=== PATIENT | female | born 1955 | race African-American/Black ===

== ENCOUNTER 2018-09-13 13:42 | Emergency (ER) | payer OTHER ==
--- NOTE | 2018-09-13 15:16 | RAD REPORT ---
EXAM DESCRIPTION: [facility] Pa And Lat (2 Views)09/13/2018 2:39 pm CLINICAL HISTORY: Cough COMPARISON: June 2017 FINDINGS: The lungs appear clear of acute infiltrate. The heart is normal size. Aorta is tortuous/e ctatic IMPRESSION: No acute abnormalities displayed
[2018-09-13] MEDS ORDERED: BENZONATATE 100 MG CAP PO ONE (15:20)
--- NOTE | 2018-09-13 15:27 | EDPHYS ---
Physician Documentation [facility] Name: Kate Brice Age: 62 yrs Sex: Female : 1955 Arrival Date: 09/13/2018 Time: 13:43 Bed 17 Private MD: Vincenzo Fermin R ED Physician Elijah Gross HPI: 09/13 14:05 This 62 yrs old Black Female presents to ER via Ambulatory with complaints of Flu cp Symptoms. 14:05 The patient or guardian reports cough, that is intermittent, with productive sputum. cp Onset: The symptoms/episode began/occurred 3 day(s) ago. Associated signs and symptoms: Pertinent positives: sore throat, Pertinent negatives: chest pain, diarrhea, fever, vomiting. Severity of symptoms: in the emergency department the symptoms are unchanged despite home interventions. Historical: - Allergies: 13:52 NKDA; la1 - PMHx: 13:52 Arthritis; Hypertension; la1 - Immunization history:: Adult Immunizations up to date. - Social history:: Smoking status: Patient/guardian denies using tobacco. - Ebola Screening: : No symptoms or risks identified at this time. ROS: 14:10 Constitutional: Negative for body aches, fever, poor PO intake. cp 14:10 Eyes: Negative for injury, pain, redness, and discharge. cp 14:10 ENT: Positive for sore throat, Negative for drainage from ear(s), ear pain, difficulty swallowing, difficulty handling secretions. 14:10 Cardiovascular: Negative for chest pain. 14:10 Respiratory: Positive for cough, "sounds productive", Negative for shortness of breath, wheezing. 14:10 Abdomen/GI: Negative for abdominal pain, vomiting, diarrhea, constipation. 14:10 Skin: Negative for rash. 14:10 Neuro: Negative for altered mental status, headache. 14:10 All other systems are negative. Exam: 14:18 Constitutional: The patient appears in no acute distress, alert, awake, non-toxic, well cp developed, well nourished, obese. 14:18 Head/Face: Normocephalic, atraumatic. cp 14:18 Eyes: Periorbital structures: appear normal, Conjunctiva: normal, no exudate, no injection, Lids and lashes: appear normal, bilaterally. 14:18 ENT: External ear(s): are unremarkable, Ear canal(s): are normal, clear, TM's: bulging, is not appreciated, bilaterally, dullness, bilaterally, erythema, is not appreciated, bilaterally, Nose: is normal, Mouth: Lips: moist, Oral mucosa: moist, Posterior pharynx: Airway: no evidence of obstruction, patent, Tonsils: no enlargement, no exudate, swelling, is not appreciated, erythema, that is mild, exudate, is not appreciated. 14:18 Neck: ROM/movement: is normal, is supple, without pain, no range of motions limitations, no meningismus, no nuchal rigidity, Lymph nodes: no appreciated lymphadenopathy. 14:18 Chest/axilla: Inspection: normal, Palpation: is normal, no crepitus, no tenderness. 14:18 Cardiovascular: Rate: normal, Rhythm: regular. 14:18 Respiratory: the patient does not display signs of respiratory distress, Respirations: normal, no use of accessory muscles, no retractions, no splinting, no tachypnea, labored breathing, is not present, Breath sounds: bronchial sounds, that are mild, are heard diffusely, decreased breath sounds, are not appreciated, stridor, is not appreciated, + upper airway congestion. wheezing: is not appreciated. 14:18 Abdomen/GI: Exam negative for discomfort, distension, guarding, Inspection: abdomen appears normal. 14:18 Skin: cellulitis, is not appreciated, no rash present. Vital Signs: 13:52 BP 142 / 92; Pulse 77; Resp 18; Temp 99.1(TE); Pulse Ox 96% on R/A; Weight 125.19 kg; la1 Height 5 ft. 9 in. (175.26 cm); 13:52 Body Mass Index 40.76 (125.19 kg, 175.26 cm) la1 MDM: 13:56 Patient medically screened. cp 14:20 Differential diagnosis: bronchitis, flu, URI, pneumonia, strep throat. cp 15:26 Data reviewed: vital signs, nurses notes, lab test result(s), radiologic studies, plain cp films. 15:26 Test interpretation: by ED physician or midlevel provider: plain radiologic studies. cp Counseling: I had a detailed discussion with the patient and/or guardian regarding: the historical points, exam findings, and any diagnostic results supporting the discharge/admit diagnosis, lab results, radiology results, to return to the emergency department if symptoms worsen or persist or if there are any questions or concerns that arise at home. Response to treatment: the patient's symptoms have mildly improved after treatment, and as a result, I will discharge patient. 09/13 13:54 Order name: Flu; Complete Time: 14:39 la1 09/13 14:39 Interpretation: Reviewed. 09/13 14:02 Order name: Strep; Complete Time: 14:39 09/13 14:39 Interpretation: Reviewed. 09/13 14:02 Order name: XRAY Chest Pa And Lat (2 Views); Complete Time: 15:17 09/13 15:17 Interpretation: Report reviewed. 09/13 14:40 Order name: Throat Culture EDME Administered Medications: 15:16 Drug: Tessalon Perle 200 mg Route: PO; em 16:02 Follow up: Response: No adverse reaction em 15:30 Drug: Albuterol 2.5 mg Route: Inhalation; em 16:02 Follow up: Response: No adverse reaction em 15:30 Drug: AtroVENT Aerosol 0.5 mg Route: Inhalation; em 16:03 Follow up: Response: No adverse reaction em Disposition: 09/13/18 15:27 Discharged to Home. Impression: Acute upper respiratory infection, unspecified. - Condition is Stable. - Discharge Instructions: Upper Respiratory Infection, Adult. - Prescriptions for Tessalon Perles 100 mg Oral Capsule - take 2 capsule by ORAL route every 8 hours As needed; 30 capsule. Albuterol Sulfate 90 mcg/actuation - inhale 1-2 puff by INHALATION route every 4-6 hours; 1 Inhaler. - Medication Reconciliation Form, Thank You Letter, Antibiotic Education, Prescription Opioid Use form. - Follow up: Private Physician; When: 2 - 3 days; Reason: Worsening of condition. - Problem is new. - Symptoms have improved. Addendum: 09/18/2018 05:29 Co-signature as Attending Physician, Elijah Gross MD. g s Signatures: Dispatcher [employer] EDME Ayaan Jones, PATTERN CARRIER PATTERN CARRIER em Reid Luo RN RN la1 Cecil Dawkins, PA PA Elijah Marx MD MD Corrections: (The following items were deleted from the chart) 09/13 16:06 15:27 09/13/2018 15:27 Discharged to Home. Impression: Acute upper respiratory em infection, unspecified. Condition is Stable. Forms are Medication Reconciliation Form, Thank You Letter, Antibiotic Education, Prescription Opioid Use. Follow up: Private Physician; When: 2 - 3 days; Reason: Worsening of condition. Problem is new. Symptoms have improved. cp
--- NOTE | 2018-09-13 15:27 | ER ---
Nurse's Notes [facility] Name: Kate Brice Age: 62 yrs Sex: Female : 1955 Arrival Date: 09/13/2018 Time: 13:43 Bed 17 Private MD: Vincenzo Fermin R Diagnosis: Acute upper respiratory infection, unspecified Presentation: 09/13 13:52 Presenting complaint: Patient states: I have been having some cold on my chest for the la1 last week and started with chills yesterday, denies vomiting. Transition of care: patient was not received from another setting of care. Onset of symptoms was September 13, 2018. Risk Assessment: Do you want to hurt yourself or someone else? Patient reports no desire to harm self or others. Initial Sepsis Screen: Does the patient meet any 2 criteria? No. Patient's initial sepsis screen is negative. Does the patient have a suspected source of infection? No. Patient's initial sepsis screen is negative. Care prior to arrival: None. 13:52 Method Of Arrival: Ambulatory la1 13:52 Acuity: RACQUEL 3 la1 Historical: - Allergies: 13:52 NKDA; la1 - PMHx: 13:52 Arthritis; Hypertension; la1 - Immunization history:: Adult Immunizations up to date. - Social history:: Smoking status: Patient/guardian denies using tobacco. - Ebola Screening: : No symptoms or risks identified at this time. Screenin:03 Abuse screen: Denies threats or abuse. Nutritional screening: No deficits noted. em Tuberculosis screening: No symptoms or risk factors identified. Fall Risk None identified. Assessment: 14:04 General: Appears in no apparent distress. comfortable, Behavior is calm, cooperative, em Reports feeling ill for > 3 days. Pain: Complains of pain in chest and throat Pain currently is 7 out of 10 on a pain scale. Pain began 2 weeks ago. Neuro: Level of Consciousness is awake, alert, obeys commands, Oriented to person, place, time, situation. Cardiovascular: Heart tones S1 S2 present Capillary refill < 3 seconds Patient's skin is warm and dry. Respiratory: Reports cough that is non-productive, pain with cough Airway is patent Respiratory effort is even, unlabored, Respiratory pattern is regular, symmetrical, Breath sounds are clear bilaterally. GI: Abdomen is obese, Patient currently denies nausea, vomiting. : No signs and/or symptoms were reported regarding the genitourinary system. EENT: Nares are clear Oral mucosa is moist. Throat is clear is pink. Derm: Skin is intact, is healthy with good turgor, Skin is pink, warm \T\ dry. Musculoskeletal: Range of motion: intact in all extremities. 14:15 General: The previous assessment is accurate, call light remains within reach. . ss 15:19 Reassessment: Patient appears in no apparent distress at this time. Patient and/or em family updated on plan of care and expected duration. Pain level reassessed. Patient is alert, oriented x 3, equal unlabored respirations, skin warm/dry/pink. Vital Signs: 13:52 BP 142 / 92; Pulse 77; Resp 18; Temp 99.1(TE); Pulse Ox 96% on R/A; Weight 125.19 kg; la1 Height 5 ft. 9 in. (175.26 cm); 13:52 Body Mass Index 40.76 (125.19 kg, 175.26 cm) la1 ED Course: 13:43 Patient arrived in ED. mr 13:43 Vincenzo Fermin MD is Private Physician. mr 13:52 Triage completed. la1 13:53 Arm band placed on left wrist. la1 13:55 Cecil Dawkins PA is PHCP. cp 13:55 Elijah Gross MD is Attending Physician. cp 14:02 Ayaan Jones LVN is Primary Nurse. em 14:03 Patient has correct armband on for positive identification. Bed in low position. Call em light in reach. Pulse ox on. NIBP on. 14:17 Strep swab sent to lab. dh3 14:35 X-ray completed. Patient tolerated procedure well. tm4 14:37 XRAY Chest Pa And Lat (2 Views) In Process Unspecified. EDMS 15:39 No provider procedures requiring assistance completed. Patient did not have IV access em during this emergency room visit. Administered Medications: 15:16 Drug: Tessalon Perle 200 mg Route: PO; em 16:02 Follow up: Response: No adverse reaction em 15:30 Drug: Albuterol 2.5 mg Route: Inhalation; em 16:02 Follow up: Response: No adverse reaction em 15:30 Drug: AtroVENT Aerosol 0.5 mg Route: Inhalation; em 16:03 Follow up: Response: No adverse reaction em Outcome: 15:27 Discharge ordered by . cp 15:39 Discharged to home ambulatory. em 15:39 Condition: good 15:39 Discharge instructions given to patient, Instructed on discharge instructions, follow up and referral plans. medication usage, Demonstrated understanding of instructions, follow-up care, medications, Prescriptions given X 2. 16:06 Patient left the ED. em Signatures: Dispatcher [employer] HUI Erika March, Rakel tm4 Ayaan Jones, METAL DRAWER METAL DRAWER em María Garcia RN RN ss Attema, Lee, RN RN la1 Cecil Dawkins PA PA cp Herrera, Deanna [facility]
[2018-09-13] MEDS ORDERED: IPRATROPIUM BROM 0.5MG/2.5ML ONE (15:37)
[2018-09-13] MEDS ORDERED: ALBUTEROL 2.5 MG/3 ML NEB SOL ONE (15:37)
[2018-09-13 16:12] VITALS: BP 142/92; TEMP 99.1; O2SAT 96
== END 2018-09-13 16:06 | disposition home or self-care (01) ==
LOC: ER 13:42
DX: J06.9 Acute upper respiratory infection, unspecified (principal); I10 Essential (primary) hypertension
CPT/HCPCS: 71046; 87070; 87081; 87804; 99284

== ENCOUNTER 2018-11-04 16:40 | Emergency (ER) | payer OTHER ==
--- NOTE | 2018-11-04 17:54 | EDPHYS ---
Physician Documentation [facility] Name: Kate Brice Age: 63 yrs Sex: Female : 1955 Arrival Date: 11/04/2018 Time: 16:42 Bed 25 Private MD: Vincenzo Fermin R ED Physician Jason Watt HPI: 11/04 17:49 This 63 yrs old Black Female presents to ER via Ambulatory with complaints of Headache. ps1 17:49 patient has a history of migraine 6 months ago that feels similar to today. She states ps1 that she has a frontal headache that is non-radiating. Described as throbbing. No aura. No nausea or vomiting that has been going on for 2 days. Headache was gradual in onset. No pain behind the eye. . Historical: - Allergies: 17:14 NKDA; aj1 - Home Meds: 17:14 aspirin 81 mg Oral TbEC 1 tab once daily [Active]; BP med [Active]; Fish Oil Oral aj1 [Active]; vit D3-folic acid-vit B2-B6-B12 Oral [Active]; - PMHx: 17:14 Arthritis; Hypertension; aj1 - Immunization history:: Flu vaccine is not up to date. - Social history:: Smoking status: Patient/guardian denies using tobacco. - Ebola Screening: : Patient denies travel to an Ebola-affected area in the 21 days before illness onset. ROS: 17:49 Constitutional: Negative for fever, chills, and weight loss, Eyes: Negative for injury, ps1 pain, redness, and discharge, ENT: Negative for injury, pain, and discharge, Cardiovascular: Negative for chest pain, palpitations, and edema, Respiratory: Negative for shortness of breath, cough, wheezing, and pleuritic chest pain, Abdomen/GI: Negative for abdominal pain, nausea, vomiting, diarrhea, and constipation, MS/Extremity: Negative for injury and deformity, Skin: Negative for injury, rash, and discoloration. 17:49 Neuro: Positive for headache. Exam: 17:49 Constitutional: This is a well developed, well nourished patient who is awake, alert, ps1 and in no acute distress. Head/Face: Normocephalic, atraumatic. Eyes: Pupils equal round and reactive to light, extra-ocular motions intact. Lids and lashes normal. Conjunctiva and sclera are non-icteric and not injected. Chest/axilla: Normal chest wall appearance and motion. Nontender with no deformity. No lesions are appreciated. Cardiovascular: Regular rate and rhythm. No gallops, murmurs, or rubs. Normal PMI, no JVD. No pulse deficits. Respiratory: Lungs have equal breath sounds bilaterally, clear to auscultation and percussion. No rales, rhonchi or wheezes noted. No increased work of breathing, no retractions or nasal flaring. Abdomen/GI: Soft, non-tender, with normal bowel sounds. No distension or tympany. No guarding or rebound. No evidence of tenderness throughout. MS/ Extremity: Pulses equal, no cyanosis. Neurovascular intact. Full, normal range of motion. Neuro: Awake and alert, GCS 15, oriented to person, place, time, and situation. Cranial nerves II-XII grossly intact. Sensory grossly intact. Psych: Awake, alert, with orientation to person, place and time. Behavior, mood, and affect are within normal limits. Vital Signs: 17:14 BP 110 / 73; Pulse 63; Resp 20; Temp 98.6; Pulse Ox 96% on R/A; Weight 107.95 kg (R); aj1 Height 5 ft. 9 in. (175.26 cm) (R); 18:31 BP 121 / 61; Pulse 81; Resp 19; Temp 98.5; Pulse Ox 100% on R/A; aj 17:14 Body Mass Index 35.15 (107.95 kg, 175.26 cm) aj1 MDM: 17:31 Patient medically screened. ps1 17:51 Data reviewed: vital signs, nurses notes, and as a result, I will discharge patient. ED ps1 course: patient states that she has a referral to neurology. Patient is not demonstrating symptoms and history concerning for SAH or malignancy, although this is a consideration. MRI would be the diagnostic modality of choice if her symptoms persist. Her BP is normal. Will try reglan for cessation of migraine. Pt to follow up with Neurology as previously referred. . Administered Medications: 18:03 Drug: TORadol 30 mg Route: IM; Site: left gluteus; aj 18:32 Follow up: Response: Marked relief of symptoms; Pain is decreased aj Disposition: 11/04/18 17:53 Discharged to Home. Impression: Migraine. - Condition is Stable. - Discharge Instructions: Migraine Headache. - Prescriptions for Reglan 10 mg Oral Tablet - take 1 tablet by ORAL route every 6 hours take 30 minutes before meals and at bedtime; 20 tablet. - Medication Reconciliation Form, Thank You Letter, Antibiotic Education, Prescription Opioid Use form. - Follow up: Private Physician; When: As needed; Reason: Further diagnostic work-up, Recheck today's complaints, Continuance of care, Re-evaluation by your physician. Follow up: Emergency Department; When: As needed; Reason: Fever > 102 F, Worsening of condition. - Problem is an acute exacerbation. - Symptoms have improved. Signatures: Melody Castellanos RN RN aj1 Valeria Talamantes RN RN aj Jason Watt MD MD ps1 Corrections: (The following items were deleted from the chart) 18:32 17:53 11/04/2018 17:53 Discharged to Home. Impression: Migraine. Condition is Stable. aj Forms are Medication Reconciliation Form, Thank You Letter, Antibiotic Education, Prescription Opioid Use. Follow up: Private Physician; When: As needed; Reason: Further diagnostic work-up, Recheck today's complaints, Continuance of care, Re-evaluation by your physician. Follow up: Emergency Department; When: As needed; Reason: Fever > 102 F, Worsening of condition. Problem is an acute exacerbation. Symptoms have improved. ps1
--- NOTE | 2018-11-04 17:54 | ER ---
Nurse's Notes [facility] Name: Kate Brice Age: 63 yrs Sex: Female : 1955 Arrival Date: 11/04/2018 Time: 16:42 Bed 25 Private MD: Vincenzo Fermin R Diagnosis: Migraine Presentation: 11/04 17:12 Presenting complaint: Patient states: "I got this headache about 6 months ago and I aj1 didn't do anything about it but I told myself if it ever came back I was going to come to there ER." Reports that her headache came back yesterday. Denies any other symptoms at this time. Transition of care: patient was not received from another setting of care. Onset of symptoms was November 03, 2018. Risk Assessment: Do you want to hurt yourself or someone else? Patient reports no desire to harm self or others. Initial Sepsis Screen: Does the patient meet any 2 criteria? No. Patient's initial sepsis screen is negative. Does the patient have a suspected source of infection? No. Patient's initial sepsis screen is negative. Care prior to arrival: None. 17:12 Method Of Arrival: Ambulatory [facility] 17:12 Acuity: RACQUEL 3 aj1 Triage Assessment: 17:14 Headache History: The patient has had previous headaches and this one is similar to aj1 previous episodes. General: Appears in no apparent distress. comfortable, Behavior is calm, cooperative, appropriate for age. Pain: Complains of pain in right catholic and left catholic Pain Pain began 1 day ago. Also complains of no other associated symptoms. Neuro: Level of Consciousness is awake, alert, obeys commands. Cardiovascular: Patient's skin is warm and dry. Respiratory: Airway is patent Respiratory effort is even, unlabored, Respiratory pattern is regular, symmetrical. Historical: - Allergies: 17:14 NKDA; aj1 - Home Meds: 17:14 aspirin 81 mg Oral TbEC 1 tab once daily [Active]; BP med [Active]; Fish Oil Oral aj1 [Active]; vit D3-folic acid-vit B2-B6-B12 Oral [Active]; - PMHx: 17:14 Arthritis; Hypertension; aj1 - Immunization history:: Flu vaccine is not up to date. - Social history:: Smoking status: Patient/guardian denies using tobacco. - Ebola Screening: : Patient denies travel to an Ebola-affected area in the 21 days before illness onset. Screenin:04 Abuse screen: Denies threats or abuse. Denies injuries from another. Nutritional aj screening: No deficits noted. Tuberculosis screening: No symptoms or risk factors identified. Fall Risk None identified. Assessment: 18:03 General: Appears in no apparent distress. uncomfortable, obese, Behavior is calm, aj cooperative, appropriate for age. Pain: Complains of pain in face. Neuro: Level of Consciousness is awake, alert, obeys commands, Oriented to person, place, time, situation, Appropriate for age. Neuro: Reports headache. Respiratory: Airway is patent Respiratory effort is even, unlabored, Respiratory pattern is regular, symmetrical. Derm: Skin is intact, is healthy with good turgor, Skin is pink, warm \\T\\ dry. normal. 18:31 Reassessment: Patient appears in no apparent distress at this time. No changes from aj previously documented assessment. Patient and/or family updated on plan of care and expected duration. Pain level reassessed. Patient is alert, oriented x 3, equal unlabored respirations, skin warm/dry/pink. Patient states feeling better. Patient states symptoms have improved. Vital Signs: 17:14 BP 110 / 73; Pulse 63; Resp 20; Temp 98.6; Pulse Ox 96% on R/A; Weight 107.95 kg (R); aj1 Height 5 ft. 9 in. (175.26 cm) (R); 18:31 BP 121 / 61; Pulse 81; Resp 19; Temp 98.5; Pulse Ox 100% on R/A; aj 17:14 Body Mass Index 35.15 (107.95 kg, 175.26 cm) aj1 ED Course: 16:42 Patient arrived in ED. mr 16:43 Vincenzo Fermin MD is Private Physician. mr 17:13 Triage completed. aj1 17:14 Arm band placed on Patient placed in an exam room. aj1 17:19 Valeria Talamantes, ENRIKE is Primary Nurse. aj 17:25 Jason Watt MD is Attending Physician. ps1 18:04 Patient has correct armband on for positive identification. aj 18:04 No provider procedures requiring assistance completed. Patient did not have IV access aj during this emergency room visit. Administered Medications: 18:03 Drug: TORadol 30 mg Route: IM; Site: left gluteus; aj 18:32 Follow up: Response: Marked relief of symptoms; Pain is decreased aj Outcome: 17:53 Discharge ordered by . ps1 18:31 Discharged to home ambulatory. aj 18:31 Condition: good 18:31 Discharge instructions given to patient, Instructed on discharge instructions, follow up and referral plans. medication usage, Demonstrated understanding of instructions, follow-up care, medications, Prescriptions given X 1. 18:32 Patient left the ED. aj Signatures: Melody Castellanos RN RN aj1 Valeria Talamantes RN RN aj Joaquim, Jason Tillman MD MD ps1
[2018-11-04] MEDS ORDERED: KETOROLAC 30 MG/ML INJ ONE (18:13)
[2018-11-05 02:49] VITALS: BP 121/61; TEMP 98.5; O2SAT 100
== END 2018-11-04 18:32 | disposition home or self-care (01) ==
LOC: ER 16:40
DX: G43.909 Migraine, unspecified, not intractable, without status migrainosus (principal); I10 Essential (primary) hypertension; Z79.82 Long term (current) use of aspirin
CPT/HCPCS: 96372; 99283

== ENCOUNTER 2021-01-30 22:58 | Observation (INO) | payer OTHER ==
--- OUTSIDE RECORDS SUMMARY | 2021-01-30 23:01 | XMS REPORT | Continuity of Care Document ---
:1955 Author Organization [facility] t Address [address] [place] [address] Care Team Providers Name Role Phone Radiology Attending Clinician Unavailable Martha Mckoy MA Attending Clinician Unavailable Lab, Fam Pob I Attending Clinician Unavailable Doctor Unassigned, Name Attending Clinician Unavailable Problems This patient has no known problems. Allergies, Adverse Reactions, Alerts Allergy Allergy Status Severity Reaction(s) Onset Inactive Treating Comm ents Source Name Type Date Date Clinician No Known DA Active U [facility] Drug 3-18 Allergie 00:00: s 00 Medications This patient has no known medications. Vital Signs Vital Name Observation Time Observation Value Comments Source 02 Sat by Pulse Oximetry 2020-09-12 13:40:28 100 /min BMI more than 35 2020-09-12 13:40:28 N Body Mass Index 2020-09-12 13:40:28 34.7 Height 2020-09-12 13:40:28 172.72\S\68 Pulse Rate 2020-09-12 13:40:28 60 /min Pulse Strength 2020-09-12 13:40:28 Normal /min Pulse Rhythm 2020-09-12 13:40:28 Regular /min Respiratory Rate 2020-09-12 13:40:28 18 /min Weight 2020-09-12 13:40:28 161155.06\S\3648 Weight Measurement Method 2020-09-12 13:40:28 Standing Scale 02 Sat by Pulse Oximetry 2020-09-10 00:09:06 100 /min BMI more than 35 2020-09-10 00:09:06 N Body Mass Index 2020-09-10 00:09:06 34.7 Height 2020-09-10 00:09:06 172.72\S\68 Pulse Rate 2020-09-10 00:09:06 60 /min Pulse Strength 2020-09-10 00:09:06 Normal /min Pulse Rhythm 2020-09-10 00:09:06 Regular /min Respiratory Rate 2020-09-10 00:09:06 18 /min Weight 2020-09-10 00:09:06 896446.06\S\3648 Weight Measurement Method 2020-09-10 00:09:06 Standing Scale 02 Sat by Pulse Oximetry 2020-09-10 00:09:05 100 /min BMI more than 35 2020-09-10 00:09:05 N Body Mass Index 2020-09-10 00:09:05 34.7 Height 2020-09-10 00:09:05 172.72\S\68 Pulse Rate 2020-09-10 00:09:05 60 /min Pulse Strength 2020-09-10 00:09:05 Normal /min Pulse Rhythm 2020-09-10 00:09:05 Regular /min Respiratory Rate 2020-09-10 00:09:05 18 /min Weight 2020-09-10 00:09:05 456721.06\S\3648 Weight Measurement Method 2020-09-10 00:09:05 Standing Scale 02 Sat by Pulse Oximetry 2020-09-09 15:07:53 100 /min BMI more than 35 2020-09-09 15:07:53 N Body Mass Index 2020-09-09 15:07:53 34.7 Height 2020-09-09 15:07:53 172.72\S\68 Pulse Rate 2020-09-09 15:07:53 60 /min Pulse Strength 2020-09-09 15:07:53 Normal /min Pulse Rhythm 2020-09-09 15:07:53 Regular /min Respiratory Rate 2020-09-09 15:07:53 18 /min Weight 2020-09-09 15:07:53 213126.06\S\3648 Weight Measurement Method 2020-09-09 15:07:53 Standing Scale HEIGHT 2020-09-09 09:58:00 172.72 cm 02 Sat by Pulse Oximetry 2020-09-09 09:56:28 100 /min BMI more than 35 2020-09-09 09:56:28 N Body Mass Index 2020-09-09 09:56:28 34.7 Height 2020-09-09 09:56:28 172.72\S\68 Pulse Rate 2020-09-09 09:56:28 55 /min Pulse Strength 2020-09-09 09:56:28 Normal /min Pulse Rhythm 2020-09-09 09:56:28 Regular /min Respiratory Rate 2020-09-09 09:56:28 18 /min Weight 2020-09-09 09:56:28 383022.06\S\3648 Weight Measurement Method 2020-09-09 09:56:28 Standing Scale WEIGHT 2020-09-09 09:40:00 103.05653 kg HEIGHT 2020-09-09 09:40:00 172.72 cm Body Mass Index 2020-09-09 06:42:15 9120488.4 Height 2020-09-09 06:42:15 1\S\0.39 Weight 2020-09-09 06:42:15 234257.206\S\3760 Body Mass Index 2020-09-08 10:27:34 5549845.4 Height 2020-09-08 10:27:34 1\S\0.39 Weight 2020-09-08 10:27:34 142871.206\S\3760 WEIGHT 2020-09-08 10:27:00 106.269555 kg HEIGHT 2020-09-08 10:27:00 1 cm Procedures This patient has no known procedures. Encounters Start End Encounter Admission Attending Care Care Encounter Source Date/Time Date/Time Type Type Clinicians Facility Department ID 2021-01-03 2021-01-03 [facility] Radiology [facility] [id number] 15:30:00 23:59:00 Encounter Noah [id number] Cristina [id number] [place] [id number] 2020-07-17 2020-07-17 Lenka Mckoy, [facility] [id number] 00:00:00 00:00:00 (Out) [facility] [id number] [place] [id number] Professio [id number] nal [address] 2020-07-16 2020-07-16 Telephone Lab, [facility] [id number] 00:00:00 00:00:00 Fam Pob I Health [id number] [place] [id number] Professio [id number] nal [address] 2020-07-14 2020-07-14 Laboratory Lab, [facility] [id number] 16:12:27 16:32:27 Only Fam Pob I Health [id number] [place] [id number] Professio [id number] nal [address] 2020-07-14 2020-07-14 Letter Doctor AGUIRRE [id number] 00:00:00 00:00:00 (Out) Unassigned, ROSA M [id number] [place] [facility] [id number] Results Test Description Test Time Test Comments Results Result Comments Source Comprehensive Metabolic Panel 2019-03-18 21:08:21 Test Item Value Reference Range Interpretation Comme nts Sodium Level (test code = Sodium Level) 140.0 mmol/L 135.0-145.0 Potassium Level (test code = Potassium Level) 4.1 mmol/L 3.5-5.1 Chloride Level (test code = Chloride Level) 103 mmol/L 98-105 CO2 (test code = CO2) 28 mmol/L 22-29 Anion Gap (test code = Anion Gap) 9 mmol/L 7-16 BUN (test code = BUN) 13.70 mg/dL 8.00-23.00 Creatinine Level (test code = Creatinine Level) 1.00 mg/dL 0.50-0 .90 H BUN/Creat Ratio (test code = BUN/Creat Ratio) 14 N Glucose Level (test code = Glucose Level) 94 mg/dL 70-115 Calcium Level (test code = Calcium Level) 9.2 mg/dL 8.3-10.5 Alk Phos (test code = Alk Phos) 59 U/L 35-104 Bilirubin Total (test code = Bilirubin Total) 0.4 mg/dL 0.1-0.9 Albumin Level (test code = Albumin Level) 4.2 g/dL 3.5-5.2 Protein Total (test code = Protein Total) 7.2 g/dL 6.4-8.3 ALT (test code = ALT) 12 U/L 1-33 AST (test code = AST) 14 U/L 1-32 Globulin (test code = Globulin) 3.0 g/dL 2.9-3.1 A/G Ratio (test code = A/G Ratio) 1.4 ratio N Comprehensive Metabolic [id number] 21:08:21 Test Item Value Reference Range Interpretation Comments Sodium Level (test 140.0 mmol/L 135.0-145.0 code = Sodium Level) Potassium Level 4.1 mmol/L 3.5-5.1 (test code = Potassium Level) Chloride Level (test 103 mmol/L 98-105 code = Chloride Level) CO2 (test code = 28 mmol/L 22-29 CO2) Anion Gap (test code 9 mmol/L 7-16 = Anion Gap) BUN (test code = 13.70 mg/dL 8.00-23.00 BUN) Creatinine Level 1.00 mg/dL 0.50-0.90 H (test code = Creatinine Level) BUN/Creat Ratio 14 N (test code = BUN/Creat Ratio) Glucose Level (test 94 mg/dL 70-115 code = Glucose Level) Calcium Level (test 9.2 mg/dL 8.3-10.5 code = Calcium Level) Alk Phos (test code 59 U/L 35-104 = Alk Phos) Bilirubin Total 0.4 mg/dL 0.1-0.9 (test code = Bilirubin Total) Albumin Level (test 4.2 g/dL 3.5-5.2 code = Albumin Level) Protein Total (test 7.2 g/dL 6.4-8.3 code = Protein Total) ALT (test code = 12 U/L 1-33 ALT) AST (test code = 14 U/L 1-32 AST) Globulin (test code 3.0 g/dL 2.9-3.1 = Globulin) A/G Ratio (test code 1.4 ratio N = A/G Ratio) eGFR AA (test code = >60 N eGFR (e stimated eGFR AA) mL/min/1.73 m2 Glomerular Filtration Rate ) is an estimated va lue, calculated from the patient's serum creatinine usin g the MDRD equation. It is NOT the patient 's actual GFR. The eGFR provides a more clinically usef ul measure of kidn ey disease than se rum creatinine alone.This calculation vick es sex and race in to account, if the information is provided. If th e race is not provided, and t he patient is -Lisa n, multiply by 1.2 12. If sex is not provided, and t he patient is fema le, multiply by 0.7 42. Results for pat ients <18 years of ag e have not been validated by th e MDRD study and should be interpreted wit h caution. eGFR R esult Interpretation: eGFR > or = 60 is in the Normal RangeeGF R < 60 may mean kid kylah diseaseeGFR < 1 5 may mean kidney failure Rang es recommended by the National Kidney Foundation, http://nkdep.ni h.gov Lipid [id number] 21:08:21 Test Item Value Reference Range Interpretation Comments Cholesterol Total 172 mg/dL 0-200 RISK OF HE ART (test code = DISEASEPublishe d by Cholesterol Total) [place] [employer] Madeleine lyte Optimal Borderl ine Increased RiskC HOL <200 200-239 >2 40TRIG <150 150-199 >2 00HDL Male >60 <40H DL Female >60 <5 0LDL <100 130-159 >1 60LDL Near optimal is 100-129 Triglycerides (test 93 mg/dL 9-200 code = Triglycerides) HDL (test code = HDL) 47 mg/dL 50-60 L LDL (test code = LDL) 106 mg/dL 0-130 The eq uation being used in this calcula tion is LDL = (Chol - H DL) - (Trig / 5) VLDL (test code = 19 mg/dL 5-40 The equati on being used VLDL) in this calcula tion is VLDL = Trig / 5 Chol/HDL (test code = 3.7 ratio 0.0-4.4 Chol/HDL) LDL/HDL Ratio (test 2 N The equa tion being used code = LDL/HDL Ratio) in thi s calculation is LDL/HDL Ratio=L DL Calc/HDL Chol Comprehensive Metabolic [id number] 21:08:21 Test Item Value Reference Range Interpretation Comments Sodium Level (test 140.0 mmol/L 135.0-145.0 code = Sodium Level) Potassium Level 4.1 mmol/L 3.5-5.1 (test code = Potassium Level) Chloride Level (test 103 mmol/L 98-105 code = Chloride Level) CO2 (test code = 28 mmol/L 22-29 CO2) Anion Gap (test code 9 mmol/L 7-16 = Anion Gap) BUN (test code = 13.70 mg/dL 8.00-23.00 BUN) Creatinine Level 1.00 mg/dL 0.50-0.90 H (test code = Creatinine Level) BUN/Creat Ratio 14 N (test code = BUN/Creat Ratio) Glucose Level (test 94 mg/dL 70-115 code = Glucose Level) Calcium Level (test 9.2 mg/dL 8.3-10.5 code = Calcium Level) Alk Phos (test code 59 U/L 35-104 = Alk Phos) Bilirubin Total 0.4 mg/dL 0.1-0.9 (test code = Bilirubin Total) Albumin Level (test 4.2 g/dL 3.5-5.2 code = Albumin Level) Protein Total (test 7.2 g/dL 6.4-8.3 code = Protein Total) ALT (test code = 12 U/L 1-33 ALT) AST (test code = 14 U/L 1-32 AST) Globulin (test code 3.0 g/dL 2.9-3.1 = Globulin) A/G Ratio (test code 1.4 ratio N = A/G Ratio) eGFR AA (test code = >60 N eGFR (e stimated eGFR AA) mL/min/1.73 m2 Glomerular Filtration Rate ) is an estimated va lue, calculated from the patient's serum creatinine usin g the MDRD equation. It is NOT the patient 's actual GFR. The eGFR provides a more clinically usef ul measure of kidn ey disease than se rum creatinine alone.This calculation vick es sex and race in to account, if the information is provided. If th e race is not provided, and t he patient is -Lisa n, multiply by 1.2 12. If sex is not provided, and t he patient is fema le, multiply by 0.7 42. Results for pat ients <18 years of ag e have not been validated by [facility] MDRD study and should be interpreted wit h caution. eGFR R esult Interpretation: eGFR > or = 60 is in the Normal RangeeGF R < 60 may mean kid kylah diseaseeGFR < 1 5 may mean kidney failure Rang es recommended by the National Kidney Foundation, http://nkdep.ni h.gov eGFR Non-AA (test 56.00 N eGFR (irlanda mated code = eGFR Non-AA) mL/min/1.73 m2 Glomer ular Filtration Rate ) is an estimated va lue, calculated from the patient's serum creatinine usin g the MDRD equation. It is NOT the patient 's actual GFR. The eGFR provides a more clinically usef ul measure of kidn ey disease than se rum creatinine alone.This calculation vick es sex and race in to account, if the information is provided. If th e race is not provided, and t he patient is -Lisa n, multiply by 1.2 12. If sex is not provided, and t he patient is fema le, multiply by 0.7 42. Results for pat ients <18 years of ag e have not been validated by [facility] MDRD study and should be interpreted wit h caution. eGFR R esult Interpretation: eGFR > or = 60 is in the Normal RangeeGF R < 60 may mean kid kylah diseaseeGFR < 1 5 may mean kidney failure Rang es recommended by the National Kidney Foundation, http://nkdep.ni h.gov Automated [id number] 21:05:07 Test Item Value Reference Range Interpretation Comments Neutro Auto (test code = Neutro 55.7 % 36.0-70.0 Auto) Lymph Auto (test code = Lymph Auto) 33.7 % 12.0-44.0 [place] Auto (test code = [place] Auto) 7.2 % 0.0-11.0 Eos, Auto (test code = Eos, Auto) 2.6 % 0.0-7.0 Basophil Auto (test code = Basophil 0.6 % 0.0-2.0 Auto) Neutro Absolute (test code = Neutro 2.8 x10 1.6-7.4 Absolute) Lymph Absolute (test code = Lymph 1.69 x10 .50-4.60 Absolute) [place] Absolute (test code = [place] .36 x10 .00-1.20 Absolute) Eos Absolute (test code = Eos 0.13 x10 0.00-0.74 Absolute) Baso Absolute (test code = Baso 0.03 x10 0.00-0.21 Absolute) IG [id number] 21:05:07 Test Item Value Reference Range Interpretation Comments IG (test code = IG) 0.2 % 0.0-5.0 IG Abs (test code = IG Abs) 0 x10 N Complete Blood Count with [id number] 21:05:06 Test Item Value Reference Range Interpretation Comments WBC (test code = WBC) 5.0 x10 4.4-10.5 RBC (test code = RBC) 4.32 x10 3.75-5.20 Hgb (test code = Hgb) 14.1 g/dL 12.2-14.8 Hct (test code = Hct) 42.4 % 36.5-44.4 MCV (test code = MCV) 98.10 fL 80.00-100.00 MCHC (test code = 33.30 g/dL 32.00-37.50 MCHC) MCH (test code = MCH) 32.6 pg 27.0-32.5 H RDW CV (test code = 12.3 % 11.5-14.5 RDW CV) Platelets (test code = 214.0 x10 140.0-440.0 Platelets) MPV (test code = MPV) 9.7 fL N Slide Review (test Auto Auto Result cr eated by code = Slide Review) GL_[id number]_ SLIDE_REV_AUTO nRBC (test code = 0 N nRBC) NRBC Abs (test code = 0.00 x10 N NRBC Abs) IPF (test code = IPF) 0 % N
[2021-01-31 00:33] LABS: Urine Blood Negative (Negative); Urine Glucose Negative (Negative); Urine Protein Negative (Negative)
[2021-01-31 00:35] LABS: Absolute Lymphocytes (CBC) 2.7 K/uL (0.7-4.9); Basophils % 1.4 % (0-1.3); Hematocrit 41.8 % (36.0-45.0); Lymphocytes % 30.1 % (15.3-44.8); MPV 7.3 fL (7.6-11.3); RBC Red Blood Cell Count 4.39 M/uL (3.86-4.86)
[2021-01-31 00:36] LABS: Protime INR 0.97
[2021-01-31 00:50] LABS: ALT/SGPT 21 U/L (12-78); Albumin 3.8 g/dL (3.4-5.0); Alkaline Phosphatase 69 U/L (45-117); BUN Blood Urea Nitrogen 15 mg/dL (7-18); Bicarbonate 28 mmol/L (21-32); Bilirubin Direct 0.1 mg/dL (0-0.2); Bilirubin Total 0.4 mg/dL (0.2-1.0); Glucose Level 84 mg/dL (74-106); NT PRO-BNP 27 pg/mL (<125); Protein, Total 7.9 g/dL (6.4-8.2); Sodium Level 139 mmol/L (136-145); Troponin (Emerg Dept Use Only) < 0.02 ng/mL (0.0-0.045)
[2021-01-31 00:53] LABS: AST/SGOT 17 U/L (15-37); Potassium 3.5 mmol/L (3.5-5.1)
--- NOTE | 2021-01-31 03:45 | ER ---
Nurse's Notes [facility] Name: Kate Brice Age: 65 yrs Sex: Female : 1955 Arrival Date: 01/30/2021 Time: 23:01 Bed 8 Private MD: Diagnosis: Chest pain, unspecified;Obesity, unspecified;Essential (primary) hypertension Presentation: 01/30 23:47 Chief complaint: Patient states: she has been having chest pain off and on for a week bb with pain across her shoulders saw her PCP today had an EKG, lab work and a chest X-ray which was all normal but she is still having the pain. Coronavirus screen: At this time, the client does not indicate any symptoms associated with coronavirus-19. Ebola Screen: No symptoms or risks identified at this time. Initial Sepsis Screen: Does the patient meet any 2 criteria? No. Patient's initial sepsis screen is negative. Does the patient have a suspected source of infection? No. Patient's initial sepsis screen is negative. Risk Assessment: Do you want to hurt yourself or someone else? Patient reports no desire to harm self or others. Onset of symptoms was January 23, 2021. 23:47 Method Of Arrival: Ambulatory bb 23:47 Acuity: RACQUEL 3 bb Triage Assessment: 23:49 General: Appears in no apparent distress. Behavior is calm, cooperative. Pain: bb Complains of pain in chest and across shoulders Pain currently is 7 out of 10 on a pain scale. Neuro: Level of Consciousness is awake, alert, obeys commands, Oriented to person, place, time, situation. Cardiovascular: Capillary refill < 3 seconds Patient's skin is warm and dry. Respiratory: Respiratory effort is even, unlabored, Respiratory pattern is regular. GI: No signs and/or symptoms were reported involving the gastrointestinal system. Derm: Skin is dry, Skin is normal, Skin temperature is warm. Musculoskeletal: Circulation, motion, and sensation intact. Historical: - Allergies: 23:49 NKDA; bb - Home Meds: 23:49 aspirin 81 mg Oral TbEC 1 tab once daily [Active]; Fish Oil Oral [Active]; vit D3-folic bb acid-vit B2-B6-B12 Oral [Active]; hydrochlorothiazide 25 mg Oral tab 1 tab once daily [Active]; amlodipine 5 mg tab 1 tab once daily [Active]; - PMHx: 23:49 Arthritis; Hypertension; bb - PSHx: 23:49 knee replacement; hip replacement; hysterectomy; bb - Immunization history:: Adult Immunizations up to date, Client reports receiving the 2nd dose of the Covid vaccine. - Social history:: Smoking status: Patient denies any tobacco usage or history of. - Family history:: not pertinent. Screenin/10 05:39 Abuse screen: Denies threats or abuse. Nutritional screening: No deficits noted. ea Tuberculosis screening: No symptoms or risk factors identified. Fall Risk None identified. Assessment: 04:00 General: Appears in no apparent distress. Pain: Denies pain. Neuro: Level of ea Consciousness is awake, alert, obeys commands, Oriented to person, place, time. Cardiovascular: Patient's skin is warm and dry. Respiratory: Airway is patent Respiratory effort is even, unlabored, Respiratory pattern is regular, symmetrical. Derm: Skin is pink, warm \T\ dry. 05:39 Reassessment: Patient and/or family updated on plan of care and expected duration. Pain ea level reassessed. Patient is alert, oriented x 3, equal unlabored respirations, skin warm/dry/pink. 07:37 Reassessment: Patient appears in no apparent distress at this time. Patient and/or jd3 family updated on plan of care and expected duration. Pain level reassessed. Patient is alert, oriented x 3, equal unlabored respirations, skin warm/dry/pink. Patient denies pain at this time. Cardiovascular: Denies chest pain, Capillary refill < 3 seconds Patient's skin is warm and dry. Respiratory: Airway is patent Respiratory effort is even, unlabored, Respiratory pattern is regular, symmetrical, Denies cough, shortness of breath. 08:32 Reassessment: Patient appears in no apparent distress at this time. No changes from jd3 previously documented assessment. Patient and/or family updated on plan of care and expected duration. Pain level reassessed. Patient is alert, oriented x 3, equal unlabored respirations, skin warm/dry/pink. 09:30 Reassessment: Patient appears in no apparent distress at this time. No changes from jd3 previously documented assessment. Patient and/or family updated on plan of care and expected duration. Pain level reassessed. Patient is alert, oriented x 3, equal unlabored respirations, skin warm/dry/pink. 10:30 Reassessment: Patient appears in no apparent distress at this time. No changes from jd3 previously documented assessment. Patient and/or family updated on plan of care and expected duration. Pain level reassessed. Patient is alert, oriented x 3, equal unlabored respirations, skin warm/dry/pink. 11:30 Reassessment: Patient appears in no apparent distress at this time. No changes from jd3 previously documented assessment. Patient and/or family updated on plan of care and expected duration. Pain level reassessed. Patient is alert, oriented x 3, equal unlabored respirations, skin warm/dry/pink. 12:51 Reassessment: Patient appears in no apparent distress at this time. No changes from jd3 previously documented assessment. Patient and/or family updated on plan of care and expected duration. Pain level reassessed. Patient is alert, oriented x 3, equal unlabored respirations, skin warm/dry/pink. medicated per [facility]. see discharge in [facility]. Vital Signs: 01/30 23:47 BP 131 / 72; Pulse 54; Resp 16 S; Temp 98.7(O); Pulse Ox 98% on R/A; Weight 99.79 kg bb (R); Height 5 ft. 8 in. (172.72 cm) (R); Pain 7/10; 01/31 08:31 BP 127 / 73; Pulse 48; Resp 16 S; Pulse Ox 100% on R/A; jd3 12:53 BP 116 / 73; Pulse 59; Resp 17 S; Pulse Ox 100% on R/A; jd3 01/30 23:47 Body Mass Index 33.45 (99.79 kg, 172.72 cm) ED Course: 01/30 23:01 Patient arrived in ED. wm 23:49 Triage completed. bb 23:49 Arm band placed on. EKG completed in triage. Results shown to MD. Family accompanied bb patient. 01/31 00:25 XRAY Chest (1 view) In Process Unspecified. EDMS 03:27 Cecil Neville MD is Attending Physician. niecy 03:43 Eamon Claros MD is Hospitalizing Provider. niecy 03:45 Elizabeth Riley, ENRIKE is Primary Nurse. ea 05:39 Patient has correct armband on for positive identification. Bed in low position. Call ea light in reach. Side rails up X2. drywall finisher on. Pulse ox on. NIBP on. 05:50 Inserted saline lock: 24 gauge in right antecubital area, using aseptic technique. ea 05:50 No provider procedures requiring assistance completed. Patient admitted, IV remains in ea place. Patient maintains SpO2 saturation greater than 95% on room air. Administered Medications: 05:49 Drug: Lovenox (enoxaparin) 1 mg/kg Route: Sub-Q; Site: abdomen; ea 05:49 Not Given (pt reports she took her aspirin this AM ): Aspirin 81 mg PO once ea 05:49 Drug: PlaVIX (clopidogrel) 75 mg Route: PO; ea 05:49 Drug: Pepcid (famotidine) 20 mg Route: IVP; Site: right antecubital; ea Outcome: 03:44 Decision to Hospitalize by Provider. [facility] 05:50 Condition: stable ea 05:50 Instructed on the need for admit, Demonstrated understanding of instructions. 05:50 Admitted to ER Hold. Please see [facility] for further documentation. ea 13:31 Patient left the ED. iw Signatures: Dispatcher [employer] EDAR Cecil Neville MD MD cha Ballard, Brenda, RN Christine Schaeffer RN RN iw Antunez, Elena RN Julius Colunga ea, RN RN Jailene Ascencio
--- NOTE | 2021-01-31 03:45 | EDPHYS ---
[facility] Name: Kate Brice Age: 65 yrs Sex: Female : 1955 Arrival Date: 01/30/2021 Time: 23:01 Bed 8 Private MD: ED Physician Cecil Neville HPI: 01/31 03:36 This 65 yrs old Black Female presents to ER via Ambulatory with complaints of Chest niecy Pain > 30 y/o. 03:36 The patient or guardian reports chest pain that is located primarily in the anterior niecy chest wall, bilaterally. Onset: 7 day(s) ago. The pain does not radiate. Associated signs and symptoms: Pertinent positives: shortness of breath. The chest pain is described as a heaviness, a pressure. Duration: The patient or guardian reports multiple episodes, with no pattern. Modifying factors: The symptoms are alleviated by nothing. the symptoms are aggravated by nothing. Severity of pain: At its worst the pain was mild moderate in the emergency department the pain has improved mildly. The patient has experienced similar episodes in the past, several times. Historical: - Allergies: 01/30 23:49 NKDA; bb - Home Meds: 23:49 aspirin 81 mg Oral TbEC 1 tab once daily [Active]; Fish Oil Oral [Active]; vit D3-folic bb acid-vit B2-B6-B12 Oral [Active]; hydrochlorothiazide 25 mg Oral tab 1 tab once daily [Active]; amlodipine 5 mg tab 1 tab once daily [Active]; - PMHx: 23:49 Arthritis; Hypertension; bb - PSHx: 23:49 knee replacement; hip replacement; hysterectomy; bb - Immunization history:: Adult Immunizations up to date, Client reports receiving the 2nd dose of the Covid vaccine. - Social history:: Smoking status: Patient denies any tobacco usage or history of. - Family history:: not pertinent. ROS: 01/31 03:36 Constitutional: Negative for fever, chills, and weight loss, Eyes: Negative for injury, niecy pain, redness, and discharge, ENT: Negative for injury, pain, and discharge, Neck: Negative for injury, pain, and swelling, Respiratory: Negative for shortness of breath, cough, wheezing, and pleuritic chest pain, Abdomen/GI: Negative for abdominal pain, nausea, vomiting, diarrhea, and constipation, Back: Negative for injury and pain, : Negative for injury, bleeding, discharge, and swelling, MS/Extremity: Negative for injury and deformity, Skin: Negative for injury, rash, and discoloration, Neuro: Negative for headache, weakness, numbness, tingling, and seizure, Psych: Negative for depression, anxiety, suicide ideation, homicidal ideation, and hallucinations, Allergy/Immunology: Negative for hives, rash, and allergies, Endocrine: Negative for neck swelling, polydipsia, polyuria, polyphagia, and marked weight changes, Hematologic/Lymphatic: Negative for swollen nodes, abnormal bleeding, and unusual bruising. Cardiovascular: Positive for chest pain, of the chest. Exam: 03:36 Constitutional: This is a well developed, well nourished patient who is awake, alert, niecy and in no acute distress. Head/Face: Normocephalic, atraumatic. Eyes: Pupils equal round and reactive to light, extra-ocular motions intact. Lids and lashes normal. Conjunctiva and sclera are non-icteric and not injected. Cornea within normal limits. Periorbital areas with no swelling, redness, or edema. ENT: Nares patent. No nasal discharge, no septal abnormalities noted. Tympanic membranes are normal and external auditory canals are clear. Oropharynx with no redness, swelling, or masses, exudates, or evidence of obstruction, uvula midline. Mucous membranes moist. Neck: Trachea midline, no thyromegaly or masses palpated, and no cervical lymphadenopathy. Supple, full range of motion without nuchal rigidity, or vertebral point tenderness. No Meningismus. Chest/axilla: Normal chest wall appearance and motion. Nontender with no deformity. No lesions are appreciated. Cardiovascular: Regular rate and rhythm with a normal S1 and S2. No gallops, murmurs, or rubs. Normal PMI, no JVD. No pulse deficits. Respiratory: Lungs have equal breath sounds bilaterally, clear to auscultation and percussion. No rales, rhonchi or wheezes noted. No increased work of breathing, no retractions or nasal flaring. Abdomen/GI: Soft, non-tender, with normal bowel sounds. No distension or tympany. No guarding or rebound. No evidence of tenderness throughout. Back: No spinal tenderness. No costovertebral tenderness. Full range of motion. Female : Normal external genitalia. Skin: Warm, dry with normal turgor. Normal color with no rashes, no lesions, and no evidence of cellulitis. MS/ Extremity: Pulses equal, no cyanosis. Neurovascular intact. Full, normal range of motion. Neuro: Awake and alert, GCS 15, oriented to person, place, time, and situation. Cranial nerves II-XII grossly intact. Motor strength 5/5 in all extremities. Sensory grossly intact. Cerebellar exam normal. Normal gait. Psych: Awake, alert, with orientation to person, place and time. Behavior, mood, and affect are within normal limits. 03:36 Musculoskeletal/extremity: DVT Exam: No signs of deep vein thrombosis. no pain, no swelling, no tenderness, negative Homans' sign noted on exam, no appreciated bluish discoloration, no erythema, no increased warmth. 03:42 ECG was reviewed by the Attending Physician. niecy Vital Signs: 01/30 23:47 BP 131 / 72; Pulse 54; Resp 16 S; Temp 98.7(O); Pulse Ox 98% on R/A; Weight 99.79 kg bb (R); Height 5 ft. 8 in. (172.72 cm) (R); Pain 7/10; 01/31 08:31 BP 127 / 73; Pulse 48; Resp 16 S; Pulse Ox 100% on R/A; jd3 12:53 BP 116 / 73; Pulse 59; Resp 17 S; Pulse Ox 100% on R/A; jd3 01/30 23:47 Body Mass Index 33.45 (99.79 kg, 172.72 cm) bb MDM: 03:27 Patient medically screened. [facility] 03:39 Differential diagnosis: abnormal EKG, anxiety, chest wall pain, costochondritis, hiatal niecy hernia, pancreatitis, peptic ulcer disease, pneumonia, pulmonary embolus, stable angina, unstable angina. HEART Score: History: Moderately Suspicious (1), ECG: Non specific repolarization disturbance / LBTB / PM (1), Troponin: < or = 1 x Normal Limit (0). The patient was given aspirin in the Emergency Department. The patient's deep vein thrombosis risk score was calculated as follows: Total Score: 0. This patient was found to be at low risk for a deep vein thrombosis by using the Well's assessment criteria. The patient's pulmonary embolism risk score was calculated as follows: Total Score: 0-2 points. This patient was found to be at low risk for a pulmonary embolism by using the Well's assessment criteria. CONSTANTINE Risk Score: TOTAL SCORE = 0. Data reviewed: vital signs, nurses notes, lab test result(s), EKG, radiologic studies, CT scan, plain films. Data interpreted: monitor tech: rate is 54 beats/min, rhythm is regular, Pulse oximetry: on room air is 98 %. Test interpretation: by ED physician or midlevel provider: ECG, plain radiologic studies. Counseling: I had a detailed discussion with the patient and/or guardian regarding: the historical points, exam findings, and any diagnostic results supporting the discharge/admit diagnosis, lab results, radiology results, the need for further work-up and treatment in the hospital. 01/30 23:56 Order name: Basic Metabolic Panel; Complete Time: 03:33 01/30 23:56 Order name: CBC with Diff; Complete Time: 03:33 01/30 23:56 Order name: LFT's; Complete Time: 03:33 01/30 23:56 Order name: Magnesium; Complete Time: 03:33 01/30 23:56 Order name: NT PRO-BNP; Complete Time: 03:33 01/30 23:56 Order name: PT-INR; Complete Time: 03:33 01/30 23:56 Order name: Troponin (emerg Dept Use Only); Complete Time: 03:33 01/30 23:56 Order name: XRAY Chest (1 view) 01/31 00:32 Order name: Urine Dipstick-Ancillary; Complete Time: 03:33 EDVT 01/31 05:33 Order name: SARS-COV-2 RT PCR [facility] 01/30 23:56 Order name: EKG; Complete Time: 23:57 01/30 23:56 Order name: EKG - Nurse/Tech; Complete Time: 00:21 01/30 23:56 Order name: Labs collected and sent; Complete Time: 00:21 01/30 23:56 Order name: O2 Per Protocol; Complete Time: 00:21 01/30 23:56 Order name: O2 Sat Monitoring; Complete Time: 00:21 01/30 23:56 Order name: Urine Dipstick-Ancillary (obtain specimen); Complete Time: 00:21 bb 01/31 04:11 Order name: CONS Physician Consult EDMS EC:42 Rate is 54 beats/min. Rhythm is regular. QRS [place] is Normal. VT interval is normal. QRS niecy interval is normal. QT interval is normal. No Q waves. T waves are Normal. No ST changes noted. Clinical impression: Sinus bradycardia and No evidence of ischemia. Interpreted by me. Reviewed by me. Administered Medications: 05:49 Drug: Lovenox (enoxaparin) 1 mg/kg Route: Sub-Q; Site: abdomen; ea 05:49 Not Given (pt reports she took her aspirin this AM ): Aspirin 81 mg PO once ea 05:49 Drug: PlaVIX (clopidogrel) 75 mg Route: PO; ea 05:49 Drug: Pepcid (famotidine) 20 mg Route: IVP; Site: right antecubital; ea Disposition Summary: 01/31/21 03:44 Hospitalization Ordered Hospitalization Status: Observation niecy Provider: Eamon Claros cha Location: Telemetry/MedSurg (observation) niecy Condition: Fair niecy Problem: new niecy Symptoms: have improved niecy Bed/Room Type: Standard niecy Room Assignment: niecy Diagnosis - Chest pain, unspecified niecy - Obesity, unspecified niecy - Essential (primary) hypertension niecy Forms: - Medication Reconciliation Form niecy - SBAR form niecy Signatures: Dispatcher [employer] EDMS Cecil Neville MD MD cha Ballard, Brenda RN RN Elizabeth Zuniga RN RN ea Corrections: (The following items were deleted from the chart) 04:26 03:36 CORONAVIRUS+BRINDAMazinANGELITO ordered. EDVT EDMS
[2021-01-31] MEDS ORDERED: CLOPIDOGREL 75 MG TABLET ONE (04:22)
[2021-01-31] MEDS ORDERED: FAMOTIDINE 20 MG/2 ML VIAL IV ONE (04:23)
[2021-01-31] MEDS ORDERED: ENOXAPARIN 100 MG/ML SYR SQ ONE (04:23)
--- NOTE | 2021-01-31 05:29 | P.HP ---
Certification for Inpatient Patient admitted to: Observation With expected LOS: <2 Midnights Patient will require the following post-hospital care: None Practitioner: I am a practitioner with admitting privileges, knowledge of patient current condition, hospital course, and medical plan of care. Services: Services provided to patient in accordance with Admission requirements found in Title 42 Section 412.3 of the Code of Federal Regulations <Kai Castellanos - Last Filed: 01/31/21 05:23> Patient History Date of Service: 01/31/21 Primary Care Provider: Chad Reason for admission: chest pain History of Present Illness: Ms. Brice is a 65 yo F with HTN and HLD who presents with 7 days of intermittent 7/10 left-sided chest pain lasting for 5 minutes at a time. She describes pain as 'nagging feeling'. Not triggered or relieved by anything. Only other complaint is palpitations one night last week and bilateral shoulder pain. 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 She had an abnormal EKG in October, but subsequent heart cath was wnl and no intervention was done. Also had a normal heart cath this year. She was started on HCTZ and amlodipine 2 weeks ago, and also takes ASA and a statin. Her mother had a CA and history of HTN. Initial trop and EKG wnl. - Past Medical/Surgical History -: HTN -: HLD -: knee surgery -: hip surgery -: hysterectomy -: tubal ligation - Family History Mother -: Heart disease, Hypertension - Social History Smoking Status: Never smoker Alcohol use: No CD- Drugs: No Caffeine use: Yes Place of Residence: Home <Kai Castellanos - Last Filed: 01/31/21 05:23> Date of Service: 01/31/21 <Fede Molina - Last Filed: 02/06/21 07:53> Allergies No Known Drug Allergies Allergy (Unverified 01/29/16 12:57) Unknown Home Medications: Aspirin [Aspirin EC 81 MG] 81 mg PO DAILY 06/22/14 [place]-3 Fatty Acids [Fish Oil] 1 cap PO DAILY 06/22/14 Methylprednisolone [Medrol dosepack] 4 mg PO DIRECTED #1 cecile 01/31/21 Methylprednisolone [Medrol dosepack] 4 mg PO DIRECTED #1 cecile 01/31/21 Review of Systems 10-point ROS is otherwise unremarkable Cardiovascular: Chest Pain, Palpitations Musculoskeletal: Shoulder Pain <Kai Castellanos - Last Filed: 01/31/21 05:23> Physical Examination - Physical Exam General: Alert, In no apparent distress HEENT: Atraumatic, PERRLA, Mucous membr. moist/pink, EOMI, Sclerae nonicteric Neck: Supple, 2+ carotid pulse no bruit, No LAD, Without JVD or thyroid a bnormality Respiratory: Clear to auscultation bilaterally, Normal air movement Cardiovascular: Regular rate/rhythm, Normal S1 S2 Gastrointestinal: Normal bowel sounds, No tenderness Musculoskeletal: No tenderness Integumentary: No rashes Neurological: Normal gait, Normal speech, Normal strength at 5/5 x4 extr, Normal tone, Normal affect Lymphatics: No axilla or inguinal lymphadenopathy - Studies Laboratory Data (last 24 hrs) 01/31/21 00:18: PT 11.1, INR 0.97 01/31/21 00:18: WBC 9.10, Hgb 14.2, Hct 41.8, Plt Count 190 01/31/21 00:18: Sodium 139, Potassium 3.5, BUN 15, Creatinine 0.97, Glucose 84, Magnesium 2.0, Total Bilirubin 0.4, AST 17, ALT 21, Alkaline Phosphatase 69 <Kai Castellanos - Last Filed: 01/31/21 05:23> Assessment and Plan - Problems (Diagnosis) (1) HTN (hypertension) Status: Chronic Qualifiers: Hypertension type: primary hypertension Qualified Code(s): I10 - Essential (primary) hypertension (2) HLD (hyperlipidemia) Status: Chronic Qualifiers: Hyperlipidemia type: unspecified Qualified Code(s): E78.5 - Hyperlipidemia, unspecified (3) Chest pain Status: Acute Qualifiers: Chest pain type: unspecified Qualified Code(s): R07.9 - Chest pain, u nspecified - Plan cardiology consulted trend troponins, repeat ekg daily ASA, statin PRN morphine and NTG lipid and thyroid labs pending continue home medications DVT ppx Discharge Plan: Home Plan to discharge in: 24 Hours - Advance Directives Does patient have a Living Will: No Does patient have a Durable POA for Healthcare: No - Code Status/Comfort Care Code Status Assessed: Yes (full code ) Critical Care: No Time Spent Managing Pts Care (In Minutes): 70 <Kai Castellanos - Last Filed: 01/31/21 05:23> Date of Service: 01/31/21 Subjective: Patient has done well clinically. Patient was ruled out for acute coronary syndrome. Cardiology recommends outpatient followup. Physical exam: Oriented to person place and time Cardiovascular: Regular rate rhythm Lungs: Clear bilaterally Abdomen: Soft and nontender Neuro: No focal deficits Assessment: 1. Chest pain rule out acute coronary syndrome Plan: - Serial troponins and EKG - Appreciate Cardiology consultation - Echocardiogram and stress test outpt - Anti-platelet therapy, anti coagulation, beta-lico, statin, and O2 as needed - IV morphine for pain - Nitro p.r.n. <Fede Molina - Last Filed: 02/06/21 07:53> <Kai Castellanos - Last Filed: 01/31/21 05:23> Diet: AHA Activity: Fall precautions Time spent managing pt's care (in minutes): 45 <Fede Molina - Last Filed: 02/06/21 07:53> Home Medications: Aspirin [Aspirin EC 81 MG] 81 mg PO DAILY 06/22/14 [place]-3 Fatty Acids [Fish Oil] 1 cap PO DAILY 06/22/14 Methylprednisolone [Medrol dosepack] 4 mg PO DIRECTED #1 cecile 01/31/21 Methylprednisolone [Medrol dosepack] 4 mg PO DIRECTED #1 cecile 01/31/21
--- NOTE | 2021-01-31 07:56 | EKG ---
Test Date: 2021-01-31 Test Time: 00:05:30 Scheduling Manager: LALITA MEASUREMENT RESULTS: Intervals: Rate: 52 MO: 168 QRSD: 80 QT: 464 QTc: 431 Ophelia: P: 26 MO: 168 QRS: 3 T: 26 INTERPRETIVE STATEMENTS: Sinus bradycardia Minimal voltage criteria for LVH, may be normal variant Borderline ECG Compared to ECG 01/09/2014 21:03:04 Left ventricular hypertrophy now present Electronically Signed On 01-31-21 07:55:56 CDT by Hunter Tejeda
--- NOTE | 2021-01-31 08:29 | RAD REPORT ---
EXAM DESCRIPTION: RAD - Chest Single View - 01/31/2021 12:25 am CLINICAL HISTORY: CHEST PAIN COMPARISON: August 2018. TECHNIQUE: AP portable chest image was obtained 01/31/2021 12:25 am . FINDINGS: Lung volumes are substantially lower than the prior study. No peripheral mass, consolidati on or edema identifiable. Low lung volume accentuates interstitial pattern at each base. Heart and vasculature are normal. No measurable pleural effusion and no pneumothorax. No acute bony abnormality seen. No acute aortic findings suspected. IMPRESSION: No acute cardiopulmonary process.
[2021-01-31] MEDS ORDERED: HYDROCORTISONE SUC 100 MG INJ IV ONE (08:58)
[2021-01-31] MEDS ORDERED: HYDROCORTISONE SUC 100 MG INJ ONE ×2 (12:40→12:54)
[2021-01-31 12:43] VITALS: BP 116/73
--- NOTE | 2021-01-31 13:44 | CON ---
Date of Consultation: 01/31/2021 Reason For Consultation: Chest pain. History Of Present Illness: Ms. Brice is a 65-year-old black woman with history of hypertension, DJD, and normal heart catheterization by Dr. Kasi Triplett in [place] in October 2020, came in with diffuse m id epigastric pain, right shoulder and elbow pain, has been going on for 2-3 days. No nausea, vomiti ng, diaphoresis, PND, orthopnea, pedal edema, palpitations, or syncope. EKG showed LVH. Troponin wa s negative. Allergies: NONE. Review of Systems: Negative. Social History: Negative. Family History: Noncontributory. Past Medical History: Includes hypertension and arthritis. Medications: At home include aspirin, fish oil, hydrochlorothiazide, and Norvasc. Physical Examination: Vital Signs: Stable, afebrile. HEENT: Negative. Neck: Supple with no bruit. Chest: Clear to auscultation and percussion. Cardiac: Revealed a regular rhythm and rate. No murmurs, gallops, or rubs. Abdomen: Benign. Extremities: Revealed no clubbing, cyanosis, or edema. Diagnostic Data: Unremarkable. Impression And Plan: Atypical chest pain, normal heart catheterization in 2020, most likely gastroes ophageal in origin. I recommended GI workup. This can be done as an outpatient, do not recommend an y cardiac workup at this point. I will discuss the case further with Dr. Molina. EDMUND/MARTIN Voice ID: [id number] Report ID: [id number]
[2021-01-31 13:49] VITALS: TEMP 98.7
[2021-01-31 13:51] VITALS: O2SAT 100
== END 2021-01-31 13:30 | disposition home or self-care (01) ==
LOC: ER 22:58 → ERHOLD 01-31 04:11
PROVIDERS: ADMIT Hospitalist; ATTEND Hospitalist
DX: R07.89 Other chest pain (principal); E78.5 Hyperlipidemia, unspecified; M19.90 Unspecified osteoarthritis, unspecified site; Z20.822 Contact with and (suspected) exposure to COVID-19; Z79.82 Long term (current) use of aspirin; Z90.710 Acquired absence of both cervix and uterus; Z82.49 Family history of ischemic heart disease and other diseases of the circulatory system
CPT/HCPCS: 93005; 85025; 80048; 36415; 83735; 85610; 80076; 81003; 84484; 83880; 71045; 96372; 96374; 99285; U0003; J1650; J1720 ×2; G0378 ×2

== ENCOUNTER 2021-03-26 14:52 | Emergency (ER) | payer OTHER ==
[2021-03-26] MEDS ORDERED: ASPIRIN 81 MG CHEWABLE TABLET ONE ×2 (16:07→16:59)
--- NOTE | 2021-03-26 16:13 | RAD REPORT ---
EXAM DESCRIPTION: US - Extremity Venous Uni Ltd - 03/26/2021 4:02 pm CLINICAL HISTORY: Swelling COMPARISON: None. TECHNIQUE: Real-time sonographic evaluation of the left lower extremity deep venous system was perfo rmed. FINDINGS: Normal compressibility, flow augmentation, phasic flow and spontaneous flow is identified in the left lower extremity deep venous system. No intraluminal filling defects seen. IMPRESSION: No DVT in the left lower extremity.
[2021-03-26 16:30] LABS: Urine Blood Trace-intact (Negative); Urine Glucose Negative (Negative); Urine Protein Negative (Negative); Urine Specific Gravity 1.025 (1.005-1.030)
--- NOTE | 2021-03-26 16:33 | RAD REPORT ---
EXAM DESCRIPTION: RAD - Chest Single View - 03/26/2021 4:22 pm CLINICAL HISTORY: CHEST PAIN COMPARISON: Chest Single View dated 01/31/2021; Chest Pa And Lat (2 Views) dated 09/13/2018; Chest Pa And Lat (2 Views) dated 06/28/2017; CHEST SINGLE VIEW dated 01/09/2014 FINDINGS: Lines: None. Lungs: No evidence of edema or pneumonia. Pleural: No significant pleural effusions or pneumothorax. Cardiac: The heart size is within normal limits. Bones: No acute fractures. Other: IMPRESSION: No acute cardiopulmonary disease.
[2021-03-26 16:54] LABS: Absolute Lymphocytes (CBC) 2.3 K/uL (0.7-4.9); Basophils % 0.8 % (0-1.3); Hematocrit 42.5 % (36.0-45.0); Lymphocytes % 30.5 % (15.3-44.8); MPV 7.1 fL (7.6-11.3); RBC Red Blood Cell Count 4.47 M/uL (3.86-4.86)
[2021-03-26 17:03] LABS: Protime INR 1.07
[2021-03-26 17:18] LABS: ALT/SGPT 21 U/L (12-78); Albumin 3.9 g/dL (3.4-5.0); Alkaline Phosphatase 64 U/L (45-117); BUN Blood Urea Nitrogen 16 mg/dL (7-18); Bicarbonate 30 mmol/L (21-32); Bilirubin Direct 0.1 mg/dL (0-0.2); Bilirubin Total 0.6 mg/dL (0.2-1.0); Glucose Level 89 mg/dL (74-106); NT PRO-BNP 51 pg/mL (<125); Protein, Total 8.1 g/dL (6.4-8.2); Sodium Level 140 mmol/L (136-145); Troponin (Emerg Dept Use Only) < 0.02 ng/mL (0.0-0.045)
[2021-03-26 17:31] LABS: Urine Bacteria >50 /HPF (<20); Urine Mucus 2+ /HPF (NONE SEEN); Urine RBC <5 /HPF (NONE SEEN)
[2021-03-26 17:33] LABS: AST/SGOT 22 U/L (15-37); Magnesium 2.2 mg/dL (1.8-2.4); Potassium 3.8 mmol/L (3.5-5.1)
--- NOTE | 2021-03-26 20:44 | EDPHYS ---
Physician Documentation [facility] Name: Kate Brice Age: 65 yrs Sex: Female : 1955 Arrival Date: 03/26/2021 Time: 14:53 Bed 23 Private MD: Vincenzo Fermin R ED Physician Cecil Neville HPI: 03/26 15:35 This 65 yrs old Black Female presents to ER via Ambulatory with complaints of Chest cp Pain, Feet Swelling. Historical: - Allergies: 15:20 NKDA; tr6 - Home Meds: 15:20 amlodipine 5 mg tab 1 tab once daily [Active]; aspirin 81 mg Oral TbEC 1 tab once daily tr6 [Active]; Fish Oil Oral [Active]; hydrochlorothiazide 25 mg Oral tab 1 tab once daily [Active]; vit D3-folic acid-vit B2-B6-B12 Oral [Active]; - PMHx: 15:20 Arthritis; Hypertension; tr6 - PSHx: 15:20 hip replacement; hysterectomy; knee replacement; tr6 - Immunization history:: Adult Immunizations up to date. - Social history:: Smoking status: Patient denies any tobacco usage or history of. ROS: 15:37 Constitutional: Negative for body aches, chills, fever. cp 15:37 Cardiovascular: Positive for chest pain, Negative for palpitations. 15:37 Respiratory: Negative for cough, shortness of breath, wheezing. 15:37 Abdomen/GI: Negative for abdominal pain, nausea, vomiting, and diarrhea. 15:37 MS/extremity: Positive for swelling, of the left foot, Negative for injury or acute deformity, pain, paresthesias. Exam: 15:22 ECG was reviewed by the Attending Physician. cp 15:40 Constitutional: The patient appears in no acute distress, alert, awake, cp non-diaphoretic, non-toxic, well developed, well nourished. 15:40 Head/Face: Normocephalic, atraumatic. cp 15:40 Eyes: Periorbital structures: appear normal, Conjunctiva: normal, no exudate, no injection, Sclera: no appreciated abnormality, Lids and lashes: appear normal, bilaterally. 15:40 ENT: External ear(s): are unremarkable, Nose: is normal, Mouth: Lips: moist, Oral mucosa: moist, Posterior pharynx: Airway: no evidence of obstruction, patent. 15:40 Neck: ROM/movement: is normal, is supple, without pain, no range of motions limitations. 15:40 Chest/axilla: Inspection: normal. 15:40 Cardiovascular: Rate: normal, Rhythm: regular, Edema: is not appreciated, JVD: is not appreciated. 15:40 Respiratory: the patient does not display signs of respiratory distress, Respirations: normal, no use of accessory muscles, no retractions, labored breathing, is not present, Breath sounds: are clear throughout, no decreased breath sounds, no stridor, no wheezing. 15:40 Abdomen/GI: Inspection: abdomen appears normal, Palpation: abdomen is soft and non-tender, in all quadrants. 15:40 Back: pain, is absent, ROM is normal. 15:40 Neuro: Orientation: to person, place \T\ time. Mentation: is normal, Motor: moves all fours, strength is normal, Sensation: is normal. Vital Signs: 15:18 BP 130 / 72 RA; Pulse 72; Resp 18; Temp 98.7(O); Pulse Ox 98% on R/A; es2 16:30 BP 119 / 83 LA; Pulse 56; Resp 23; Pulse Ox 97% ; es2 17:00 BP 120 / 68; Pulse 51; Resp 22; Pulse Ox 94% ; bp 18:00 BP 113 / 68; Pulse 53; Resp 18; Pulse Ox 99% ; bp 19:16 BP 122 / 65; Pulse 54; Resp 15; Temp 98.5(O); Pulse Ox 100% on R/A; Pain 2/10; bc5 20:57 BP 104 / 49; Pulse 54; Resp 16; Temp 98.2(O); Pulse Ox 99% on R/A; Pain 0/10; bc5 MDM: 15:19 Patient medically screened. niecy 16:00 Differential diagnosis: abnormal EKG, acute myocardial infarction, acute pericarditis, cp chest wall pain, pneumonia, pneumothorax, pulmonary embolus, stable angina, thoracic aortic disection, unstable angina. 18:15 Physician consultation: DR Kasi Triplett reports patient with history of negative cp cardiac cath for significant cardiac disease within the last year. 20:44 Data reviewed: vital signs, nurses notes, lab test result(s), EKG, radiologic studies, cp plain films. 20:44 The patient was given aspirin in the Emergency Department. Test interpretation: by ED cp physician or midlevel provider: ECG, plain radiologic studies. Response to treatment: the patient's symptoms have markedly improved after treatment. Special discussion: Based on the patient's history, exam, and Dx evaluation, there is no indication for emergent intervention or inpatient Tx. It is understood by the patient/guardian that if the Sx's persist or worsen they need to return immediately for re-evaluation. 20:44 ED course: EKG negative for STEMI. Initial and repeat troponin negative. Consult with cp DR Triplett, patient's primary fur dry cleaner hand, who reports negative cath done less than 1 year ago. Pain improved, will discharge to home for continued monitoring. 03/26 15:30 Order name: Basic Metabolic Panel 03/26 15:30 Order name: CBC with Diff; Complete Time: 17:05 cp 03/26 17:05 Interpretation: Normal except: MPV 7.1. cp 03/26 15:30 Order name: LFT's; Complete Time: 17:45 cp 03/26 17:45 Interpretation: Normal except: GLOB 4.2; A/G 0.9. cp 03/26 15:30 Order name: Magnesium; Complete Time: 17:45 cp 03/26 15:30 Order name: NT PRO-BNP; Complete Time: 17:45 cp 03/26 15:30 Order name: PT-INR; Complete Time: 17:05 cp 03/26 15:30 Order name: Troponin (emerg Dept Use Only); Complete Time: 17:45 cp 03/26 15:30 Order name: XRAY Chest (1 view); Complete Time: 17:05 cp 03/26 15:30 Order name: US Extremity Venous Unilateral Ltd; Complete Time: 17:05 cp 03/26 15:30 Order name: Urine Microscopic Only; Complete Time: 17:45 cp 03/26 17:45 Interpretation: Normal except: UBACT >50; SQEPI 5-10. cp 03/26 15:30 Order name: Basic Metabolic Panel; Complete Time: 17:45 EDMS 03/26 16:30 Order name: Urine Dipstick-Ancillary; Complete Time: 17:05 EDMS 03/26 17:33 Order name: Urine Culture EDMS 03/26 19:21 Order name: Troponin I: repeat at 1945 cp 03/26 15:30 Order name: EKG; Complete Time: 15:30 cp 03/26 15:30 Order name: Cardiac monitoring; Complete Time: 15:34 cp 03/26 15:30 Order name: EKG - Nurse/Tech; Complete Time: 15:34 cp 03/26 15:30 Order name: IV Saline Lock; Complete Time: 16:46 cp 03/26 15:30 Order name: Labs collected and sent; Complete Time: 16:46 cp 03/26 15:30 Order name: O2 Per Protocol; Complete Time: 15:34 cp 03/26 15:30 Order name: O2 Sat Monitoring; Complete Time: 15:34 cp 03/26 15:30 Order name: Urine Dipstick-Ancillary (obtain specimen); Complete Time: 16:31 cp 03/26 16:47 Order name: Blood Pressure Recheck: bilateral upper extremity; Complete Time: 17:21 cp EC:22 Rate is 62 beats/min. Rhythm is regular. [place] interval is normal. QRS interval is normal. cp QT interval is normal. T waves are Inverted in lead aVR. Interpreted by me. Reviewed by me. Administered Medications: 16:40 Drug: Aspirin Chewable Tablet 324 mg Route: PO; es2 17:21 Follow up: Response: No adverse reaction es2 Disposition: 21:00 Chart complete. 03/27 06:40 Co-signature as Attending Physician, Cecil Neville MD I agree with the assessment and niecy plan of care. Disposition Summary: 03/26/21 20:44 Discharge Ordered Location: Home cp Problem: new cp Symptoms: have improved cp Condition: Stable cp Diagnosis - Chest pain, unspecified cp Followup: cp - With: Private Physician - When: 1 - 2 days - Reason: Recheck today's complaints Discharge Instructions: - Discharge Summary Sheet cp - Nonspecific Chest Pain, Adult cp - Aspirin and Your Heart cp Forms: - Medication Reconciliation Form cp - Thank You Letter cp - Antibiotic Education cp - Prescription Opioid Use cp Signatures: Dispatcher [employer] Cecil Bowden MD MD cha Page, Corey, PA PA cp Rani Da Silva RN RN tr6 Harini Farmer RN RN es2
--- NOTE | 2021-03-26 20:44 | ER ---
Nurse's Notes [facility] Name: Kate Brice Age: 65 yrs Sex: Female : 1955 Arrival Date: 03/26/2021 Time: 14:53 Bed 23 Private MD: Vincnezo Fermin R Diagnosis: Chest pain, unspecified Presentation: 03/26 15:18 Chief complaint: Patient states: intermittent left sided CP beginning this am while at tr6 rest, sometimes radiates across chest. pt also reports that she has "left foot swelling only when wearing sandals. this does not happen when she wears sneakers.". Coronavirus screen: At this time, unable to obtain information related to travel outside the [place] Ebola Screen: No symptoms or risks identified at this time. Initial Sepsis Screen: Does the patient meet any 2 criteria? No. Patient's initial sepsis screen is negative. Does the patient have a suspected source of infection? No. Patient's initial sepsis screen is negative. Risk Assessment: Do you want to hurt yourself or someone else? Patient reports no desire to harm self or others. Onset of symptoms was March 26, 2021. 15:18 Method Of Arrival: Ambulatory tr6 15:18 Acuity: RACQUEL 3 tr6 Triage Assessment: 15:20 General: Appears in no apparent distress. Behavior is calm, cooperative, appropriate tr6 for age. Pain: Complains of pain in left sided cp Pain radiates to across chest. EENT: No deficits noted. Neuro: No deficits noted. Cardiovascular: Reports chest pain, Edema is 2+ to left foot and left toes Rhythm is sinus rhythm. Respiratory: No deficits noted. GI: No deficits noted. : No deficits noted. Derm: No deficits noted. Musculoskeletal: No deficits noted. Historical: - Allergies: 15:20 NKDA; tr6 - Home Meds: 15:20 amlodipine 5 mg tab 1 tab once daily [Active]; aspirin 81 mg Oral TbEC 1 tab once daily tr6 [Active]; Fish Oil Oral [Active]; hydrochlorothiazide 25 mg Oral tab 1 tab once daily [Active]; vit D3-folic acid-vit B2-B6-B12 Oral [Active]; - PMHx: 15:20 Arthritis; Hypertension; tr6 - PSHx: 15:20 hip replacement; hysterectomy; knee replacement; tr6 - Immunization history:: Adult Immunizations up to date. - Social history:: Smoking status: Patient denies any tobacco usage or history of. Screenin:22 Abuse screen: Denies threats or abuse. Denies injuries from another. Nutritional tr6 screening: No deficits noted. Tuberculosis screening: No symptoms or risk factors identified. Fall Risk None identified. Assessment: 15:30 General: SEE TRIAGE NOTE. es2 16:30 Reassessment: No changes from previously documented assessment. Patient and/or family es2 updated on plan of care and expected duration. Pain level reassessed. B/S U/S COMPLETE. 18:29 Reassessment: No changes from previously documented assessment. Patient and/or family bp updated on plan of care and expected duration. Pain level reassessed. 19:14 Reassessment: Initial contact. pt sitting up in stretcher with eyes open, RR is even bc5 and unlabored, VSS, NAD. Pt has no requests or complaints at this time. WCTM. Pain: Denies pain. 20:52 Pain: Pain began gradually. bc5 Vital Signs: 15:18 BP 130 / 72 RA; Pulse 72; Resp 18; Temp 98.7(O); Pulse Ox 98% on R/A; es2 16:30 BP 119 / 83 LA; Pulse 56; Resp 23; Pulse Ox 97% ; es2 17:00 BP 120 / 68; Pulse 51; Resp 22; Pulse Ox 94% ; bp 18:00 BP 113 / 68; Pulse 53; Resp 18; Pulse Ox 99% ; bp 19:16 BP 122 / 65; Pulse 54; Resp 15; Temp 98.5(O); Pulse Ox 100% on R/A; Pain 2/10; bc5 20:57 BP 104 / 49; Pulse 54; Resp 16; Temp 98.2(O); Pulse Ox 99% on R/A; Pain 0/10; bc5 ED Course: 14:53 Patient arrived in ED. as 14:54 Vincenzo Fermin MD is Private Physician. as 15:02 Kiko Marr, ENRIKE is Primary Nurse. bp 15:14 Cecil Dawkins PA is PHCP. cp 15:14 Cecil Neville MD is Attending Physician. cp 15:20 Triage completed. tr6 15:22 Patient has correct armband on for positive identification. Placed in gown. Bed in low tr6 position. cafeteria monitor on. Pulse ox on. NIBP on. Notified ED physician of. Door closed. 15:22 No provider procedures requiring assistance completed. Patient maintains SpO2 tr6 saturation greater than 95% on room air. 15:23 Patient placed in an exam room. EKG completed in triage. Results shown to MD. tr6 16:02 US Extremity Venous Unilateral Ltd In Process Unspecified. EDMS 16:22 XRAY Chest (1 view) In Process Unspecified. EDMS 16:32 Urine Microscopic Only Sent. bp 16:46 Basic Metabolic Panel Sent. es2 19:12 Primary Nurse role handed off by Kiko Marr, ENRIKE bc5 19:12 Jazmyne Farmer, ENRIKE is Primary Nurse. bc5 19:12 Jazmyne Farmer, ENRIKE is Primary Nurse. bc5 19:47 Troponin I: repeat at 1945 Sent. bc5 20:52 IV discontinued, intact, bleeding controlled, No redness/swelling at site. Pressure bc5 dressing applied. Administered Medications: 16:40 Drug: Aspirin Chewable Tablet 324 mg Route: PO; es2 17:21 Follow up: Response: No adverse reaction es2 Outcome: 20:44 Discharge ordered by MD. cp 20:52 Condition: improved bc5 20:52 Discharged to home ambulatory. bc5 20:52 Discharge instructions given to patient, Instructed on discharge instructions, follow up and referral plans. 20:58 Patient left the ED. bc5 Signatures: Dispatcher [employer] EDMS Kate Lerner as Cecil Dawkins PA PA cp Kiko Marr, ENRIKE CALVERT bp Rani Da Silva RN RN tr6 Jazmyne Farmer RN RN bc5 Harini Farmer RN RN es2 Corrections: (The following items were deleted from the chart) 15:24 15:18 Chief complaint: Patient states: intermittent left sided CP beginning this am tr6 while at rest, sometimes radiates across chest tr6 17:20 15:18 BP 130 / 72; Pulse 72bpm; Resp 18bpm; Pulse Ox 98% RA; Temp 98.7F Oral; tr6 es2 17:20 16:30 BP 119 / 83; Pulse 56bpm; Resp 23bpm; Pulse Ox 97%; es2 es2 19:20 19:17 Reassessment: Initial contact. Pt slaying down in stretcher with eyes open, RR is bc5 even and unlabored, C/O back pain and is requesting additional dose of morphine, Will let provider know. A\\T\\O x 3, speaking in clear and complete sentences at this time. VSS, NAD, WCTM bc5
[2021-03-26 21:10] VITALS: BP 104/49; TEMP 98.2; O2SAT 99
--- NOTE | 2021-03-28 18:15 | EKG ---
Test Date: 2021-03-26 Test Time: 15:15:29 Philosophy Instructor: TTR MEASUREMENT RESULTS: Intervals: Rate: 62 ID: [id number] QRSD: 72 QT: 402 QTc: 408 [place]: P: 44 ID: [id number] QRS: 23 T: 49 INTERPRETIVE STATEMENTS: Normal sinus rhythm Normal ECG Compared to ECG 01/31/2021 00:05:30 Sinus bradycardia no longer present Left ventricular hypertrophy no longer present Electronically Signed On 03-28-21 18:06:36 CDT by Hunter Tejeda
== END 2021-03-26 20:58 | disposition home or self-care (01) ==
LOC: ER 14:52
DX: R07.9 Chest pain, unspecified (principal); I10 Essential (primary) hypertension
CPT/HCPCS: 36415; 71045; 80048; 80076; 81003; 81015; 83735; 83880; 84484; 85025; 85610; 87086; 87088; 93005; 93971; 99285

== ENCOUNTER 2021-09-29 15:57 | Emergency (ER) | payer OTHER ==
--- OUTSIDE RECORDS SUMMARY | 2021-09-29 16:02 | XMS REPORT | Continuity of Care Document ---
:1955 Author Organization [facility] t Address [address] [place] [address] Care Team Providers Name Role Phone JACE SILVA Primary Care Physician Unavailable JOSE TREVIZO Attending Clinician Unavailable AUDREY LAMBERT Attending Clinician Unavailable AVNI Attending Clinician Unavailable Avni SOCIAL WORKER Attending Clinician Doctor Unassigned, Name Attending Clinician Unavailable Joseline CLAY Attending Clinician Yan_W Attending Clinician Unavailable Radiology Attending Clinician Unavailable Salina Mckoy MA Attending Clinician Unavailable Lab, Fam Pob I Attending Clinician Unavailable Yan_W Admitting Clinician Unavailable Payers Payer Name Policy Type Policy Number Effective Date Expiration Date S agustin HUMANA CHOICE [id number] 2021 00:00:00 [place]IC[place]: [id number] 2001 [employer] 00:00:00 Problems Condition Condition Condition Status Onset Resolution Last Treating Co mments Source Name Details Category Date Date Treatment Clinician Date Nonobstruc Nonobstruc Disease Active U nivers tive tive 9-08 ity of athe[place]sis of 00 Medica l 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 Essential Essential Disease Active Overview: Univers hypertensi hypertensi Formattin ity of on on g of this [place] note Medical might be Branch different from the original. 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 Drug 3-18 Allergie 00:00: 00 NO KNOWN Drug Active Univers ALLERGIE Class ity of S [facility] Social History Social Habit Start Date Stop Date Quantity Comments Source Exposure to Not sure [facility] SARS-CoV-2 (event) Medica l [place] Alcohol intake 2021-09-18 2021-09-18 0 /d [facility] 00:00:00 00:00:00 [facility] Sex Ass[birth year] [facility] y of [place] 00:00:00 00:00:00 [facility] Smoking Status Start Date Stop Date Source Never smoker [facility] Medications Ordered Filled Start Stop Current Ordering Indication Dosage Frequency Signature Comments Components Source Medication Medication Date Date Medication? Clinician (SIG) Name Name guaiFENesin Yes [id number] 600mg Take 1 Univers (MUCINEX) 3-28 tablet by ity o f 600 mg 00:00: mouth [place] tablet 00 every 12 Medical (twelve) Branch hours. cetirizine Yes [id number] 10mg Take 1 U nivers (ZYRTEC) 10 3-28 tablet by ity of mg tablet 00:00: mouth [place] 00 daily. Medical Branch guaiFENesin Yes [id number] 600mg Take 1 Univers (MUCINEX) 3-28 tablet by ity o f 600 mg 00:00: mouth [place] tablet 00 every 12 Medical (twelve) Branch hours. cetirizine Yes [id number] 10mg Take 1 U nivers (ZYRTEC) 10 3-28 tablet by ity of mg tablet 00:00: mouth [place] 00 daily. Medical Branch nitroglycer 2020-[address] 1 Uni vers in 0.4 mg 0-22 tablet ity of sublingual 00:00: under the [place] tablet 00 tongue Medical every 5 Branch (five) minutes as needed for Chest pain. nitroglycer 2020-[address] 1 Uni vers in 0.4 mg 0-22 tablet ity of sublingual 00:00: [place] the [place] tablet 00 tongue Medical every 5 Branch (five) minutes as needed for Chest pain. nitroglycer 2020-[address] 1 Uni vers in 0.4 mg 0-22 tablet ity of sublingual 00:00: [place] the [place] tablet 00 tongue Medical every 5 Branch (five) minutes as needed for Chest pain. nitroglycer 2020-[address] 1 Uni vers in 0.4 mg 0-22 tablet ity of sublingual 00:00: [place] the [place] tablet 00 tongue Medical every 5 Branch (five) minutes as needed for Chest pain. hydroCHLORO Yes [id number] 25mg Take 1 Univers thiazide 25 9-08 tablet by ity of mg tablet 00:00: mouth [place] 00 daily. Medical Branch amLODIPine Yes [id number] 5mg Take 1 U nivers 5 mg tablet 9-08 tablet by ity of 00:00: mouth [place] 00 daily. Medical Branch atorvastati 0 Yes [id number] 20mg Take 1 Univers n 20 mg 9-08 tablet by ity of tablet 00:00: mouth [place] 00 daily. Medical Branch hydroCHLORO 0 Yes [id number] 25mg Take 1 Univers thiazide 25 9-08 tablet by ity of mg tablet 00:00: mouth [place] 00 daily. Medical Branch amLODIPine Yes [id number] 5mg Take 1 U nivers 5 mg tablet 9-08 tablet by ity of 00:00: mouth [place] 00 daily. Medical Branch atorvastati Yes [id number] 20mg Take 1 Univers n 20 mg 9-08 tablet by ity of tablet 00:00: mouth [place] 00 daily. Medical Branch hydroCHLORO Yes [id number] 25mg Take 1 Univers thiazide 25 9-08 tablet by ity of mg tablet 00:00: mouth [place] 00 daily. Medical Branch amLODIPine Yes [id number] 5mg Take 1 U nivers 5 mg tablet 9-08 tablet by ity of 00:00: mouth [place] 00 daily. Medical Branch atorvastati Yes [id number] 20mg Take 1 Univers n 20 mg 9-08 tablet by ity of tablet 00:00: mouth [place] 00 daily. Medical Branch hydroCHLORO Yes [id number] 25mg Take 1 Univers thiazide 25 9-08 tablet by ity of mg tablet 00:00: mouth [place] 00 daily. Medical Branch amLODIPine Yes [id number] 5mg Take 1 U nivers 5 mg tablet 9-08 tablet by ity of 00:00: mouth [place] 00 daily. Medical Branch atorvastati Yes [id number] 20mg Take 1 Univers n 20 mg 9-08 tablet by ity of tablet 00:00: mouth [place] 00 daily. Medical Branch ACETAMINOPH Yes 1-2 pills U nivers EN 500 MG 4-05 a day ity of ORAL TAB 14:05: 30 Medical Branch GLUCOSAMINE Yes 1-2 pills U nivers &CHONDROIT- 4-05 a day ity of MV-MIN3 14:05: [place] [id number] Medical 0.5 MG ORAL Branch TAB ASPIRIN 81 Yes 1 PO daily U nivers MG ORAL 4-05 ity of CHEW 14:05: 30 Medical Branch cholecalcif Yes 1{capsu Take 1 U nivers adeel, 4-05 le} capsule by ity of vitamin D3, 14:05: mouth [place] (VITAMIN 30 daily. Medical D3) 4,000 Branch unit Cap omega-3 Yes 1000mg Take 1,000 Un michelle fatty acids 4-05 mg by ity of (FISH OIL) 14:05: mouth [place] capsule 30 daily. Medical Branch ACETAMINOPH Yes 1-2 pills U nivers EN 500 MG 4-05 a day ity of ORAL TAB 14:05: [place] [address] Medical [place] GLUCOSAMINE Yes 1-2 pills U nivers &CHONDROIT- 4-05 a day ity of MV-MIN3 14:05: [place] [id number] Medical 0.5 MG ORAL Branch TAB ASPIRIN 81 Yes 1 PO daily U nivers MG ORAL 4-05 ity of CHEW 14:05: [address] cholecalcif Yes 1{capsu Take 1 U nivers adeel, 4-05 le} capsule by ity of vitamin D3, 14:05: mouth [place] (VITAMIN 30 daily. Medical D3) 4,000 Branch unit Cap omega-3 Yes 1000mg Take 1,000 Un michelle fatty acids 4-05 mg by ity of (FISH OIL) 14:05: mouth [place] capsule 30 daily. Medical Branch ACETAMINOPH Yes 1-2 pills U nivers EN 500 MG 4-05 a day ity of ORAL TAB 14:05: [place] [address] Medical [place] GLUCOSAMINE Yes 1-2 pills U nivers &CHONDROIT- 4-05 a day ity of MV-MIN3 14:05: [place] 300-25- 30 Medical 0.5 MG ORAL Branch TAB ASPIRIN 81 Yes 1 PO daily U nivers MG ORAL 4-05 ity of CHEW 14:05: [address] cholecalcif Yes 1{capsu Take 1 U nivers adeel, 4-05 le} capsule by ity of vitamin D3, 14:05: mouth [place] (VITAMIN 30 daily. Medical D3) 4,000 Branch unit Cap omega-3 Yes 1000mg Take 1,000 Un michelle fatty acids 4-05 mg by ity of (FISH OIL) 14:05: mouth [place] capsule 30 daily. Medical Branch ACETAMINOPH Yes 1-2 pills U nivers EN 500 MG 4-05 a day ity of ORAL TAB 14:05: [address] GLUCOSAMINE Yes 1-2 pills U nivers &CHONDROIT- 4-05 a day ity of MV-MIN3 14:05: [place] [id number] Medical 0.5 MG ORAL Branch TAB ASPIRIN 81 Yes 1 PO daily U nivers MG ORAL 4-05 ity of CHEW 14:05: [place] 30 Medical Branch cholecalcif 2017-0 Yes 1{capsu Take 1 U nivers adeel, 4-05 le} capsule by ity of vitamin D3, 14:05: mouth [place] (VITAMIN 30 daily. Medical D3) 4,000 Branch unit Cap omega-3 2017-0 Yes 1000mg Take 1,000 Un michelle fatty acids 4-05 mg by ity of (FISH OIL) 14:05: mouth [place] capsule 30 daily. Medical Branch methylPREDN 2017-0 Yes 84mg Take 21 Uni vers ISolone 4-05 tablets by ity of (MEDROL, 00:00: mouth [place] LEIGH,) 4 mg 00 SEE-INSTRU Med ical tablets CTIONS. Branch follow package directions diclofenac 2017-0 Yes 75mg Take 1 Unive rs 75 mg EC 4-05 tablet by ity of tablet 00:00: mouth (two) Medical times Branch daily with meals. methylPREDN 2017-0 Yes 84mg Take 21 Uni vers ISolone 4-05 tablets by ity of (MEDROL, 00:00: mouth [place] LEIGH,) 4 mg 00 SEE-INSTRU Med ical tablets CTIONS. Branch follow package directions diclofenac 2017-0 Yes 75mg Take 1 Unive rs 75 mg EC 4-05 tablet by ity of tablet 00:00: mouth (two) Medical times Branch daily with meals. methylPREDN 2017-0 Yes 84mg Take 21 Uni vers ISolone 4-05 tablets by ity of (MEDROL, 00:00: mouth [place] LEIGH,) 4 mg 00 SEE-INSTRU Med ical tablets CTIONS. Branch follow package directions diclofenac 2017-0 Yes 75mg Take 1 Unive rs 75 mg EC 4-05 tablet by ity of tablet 00:00: mouth (two) Medical times Branch daily with meals. methylPREDN 2017-0 Yes 84mg Take 21 Uni vers ISolone 4-05 tablets by ity of (MEDROL, 00:00: mouth [place] LEIGH,) 4 mg 00 SEE-INSTRU Med ical tablets CTIONS. Branch follow package directions diclofenac 2017-0 Yes 75mg Take 1 Unive rs 75 mg EC 4-05 tablet by ity of tablet 00:00: mouth (two) Medical times Branch daily with meals. acetaminoph 2017-0 Yes 1 - 2 by Un michelle en-codeine 1-11 mouth ity of (TYLENOL-CO 00:00: every 4-6 [place] DEINE #3) 00 hours as Medica l 300-30 mg needed for Bran ch tablet pain acetaminoph Yes 1 - 2 by Un [place] en-codeine 1-11 mouth ity of (TYLENOL-CO 00:00: every 4-6 [place] DEINE #3) 00 hours as Medica l 300-30 mg needed for Bran ch tablet pain acetaminoph Yes 1 - 2 by Un [place] en-codeine 1-11 mouth ity of (TYLENOL-CO 00:00: every 4-6 [place] DEINE #3) 00 hours as Medica l 300-30 mg needed for Bran ch tablet pain acetaminoph Yes 1 - 2 by Un [place]hel[place] en-codeine 1-11 mouth ity of (TYLENOL-CO 00:00: every 4-6 [place] DEINE #3) 00 hours as Medica l 300-30 mg needed for Bran ch tablet pain traMADOL Yes Univers (ULTRAM) 50 9-02 ity of mg tablet 00:00: [facility] traMADOL 0 Yes Univers (ULTRAM) 50 9-02 ity of mg tablet 00:00: [place] [facility] traMADOL 0 Yes Univers (ULTRAM) 50 9-02 ity of mg tablet 00:00: [facility] traMADOL 0 Yes Univers (ULTRAM) 50 9-02 ity of mg tablet 00:00: [address] Vital Signs Vital Name Observation Time Observation Value Comments Source Systolic blood 2021-09-18 23:45:00 134 mm[Hg] Univer sity of pressure [facility] Diastolic blood 2021-09-18 23:45:00 84 mm[Hg] Unive rsity of pressure [facility] Heart rate 2021-09-18 23:45:00 92 /min [facility] Body temperature 2021-09-18 23:45:00 36.67 [facility] Respiratory rate 2021-09-18 23:45:00 18 /min [facility] Body height 2021-09-18 23:45:00 172.7 cm [facility] Body weight 2021-09-18 23:45:00 102.059 kg Universi ty of [place] Medical [place] BMI 2021-09-18 23:45:00 34.21 kg/m2 Universi ty of [facility] Oxygen saturation in 2021-09-18 23:45:00 96 /min University of Arterial blood by [facility] Pulse oximetry Branch Systolic blood 2021-08-30 19:47:00 117 mm[Hg] Univer sity of pressure [facility] Diastolic blood 2021-08-30 19:47:00 66 mm[Hg] Unive rsity of pressure [facility] Heart rate 2021-08-30 19:43:00 57 /min Universi ty of [facility] Body height 2021-08-30 19:43:00 170.2 cm Universi ty of [facility] Body weight 2021-08-30 19:43:00 102.059 kg Universi ty of [facility] BMI 2021-08-30 19:43:00 35.24 kg/m2 Universi ty [facility] Oxygen saturation in 2021-08-30 19:43:00 95 /min University of Arterial blood by [facility] Pulse oximetry Branch 02 Sat by Pulse 2020-09-12 13:40:28 100 /min Oximetry BMI more than 35 2020-09-12 13:40:28 N Body Mass Index 2020-09-12 13:40:28 34.7 Height 2020-09-12 13:40:28 172.72\S\68 Pulse Rate 2020-09-12 13:40:28 60 /min Pulse Strength 2020-09-12 13:40:28 Normal /min Pulse Rhythm 2020-09-12 13:40:28 Regular /min Respiratory Rate 2020-09-12 13:40:28 18 /min Weight 2020-09-12 13:40:28 380895.06\S\3648 Weight Measurement 2020-09-12 13:40:28 Standing Scale Method 02 Sat by Pulse 2020-09-10 00:09:06 100 /min Oximetry BMI more than 35 2020-09-10 00:09:06 N Body Mass Index 2020-09-10 00:09:06 34.7 Height 2020-09-10 00:09:06 172.72\S\68 Pulse Rate 2020-09-10 00:09:06 60 /min Pulse Strength 2020-09-10 00:09:06 Normal /min Pulse Rhythm 2020-09-10 00:09:06 Regular /min Respiratory Rate 2020-09-10 00:09:06 18 /min Weight 2020-09-10 00:09:06 915249.06\S\3648 Weight Measurement 2020-09-10 00:09:06 Standing Scale Method 02 Sat by Pulse 2020-09-10 00:09:05 100 /min Oximetry BMI more than 35 2020-09-10 00:09:05 N Body Mass Index 2020-09-10 00:09:05 34.7 Height 2020-09-10 00:09:05 172.72\S\68 Pulse Rate 2020-09-10 00:09:05 60 /min Pulse Strength 2020-09-10 00:09:05 Normal /min Pulse Rhythm 2020-09-10 00:09:05 Regular /min Respiratory Rate 2020-09-10 00:09:05 18 /min Weight 2020-09-10 00:09:05 369957.06\S\3648 Weight Measurement 2020-09-10 00:09:05 Standing Scale Method 02 Sat by Pulse 2020-09-09 15:07:53 100 /min Oximetry BMI more than 35 2020-09-09 15:07:53 N Body Mass Index 2020-09-09 15:07:53 34.7 Height 2020-09-09 15:07:53 172.72\S\68 Pulse Rate 2020-09-09 15:07:53 60 /min Pulse Strength 2020-09-09 15:07:53 Normal /min Pulse Rhythm 2020-09-09 15:07:53 Regular /min Respiratory Rate 2020-09-09 15:07:53 18 /min Weight 2020-09-09 15:07:53 756632.06\S\3648 Weight Measurement 2020-09-09 15:07:53 Standing Scale Method HEIGHT 2020-09-09 09:58:00 172.72 cm 02 Sat by Pulse 2020-09-09 09:56:28 100 /min Oximetry BMI more than 35 2020-09-09 09:56:28 N Body Mass Index 2020-09-09 09:56:28 34.7 Height 2020-09-09 09:56:28 172.72\S\68 Pulse Rate 2020-09-09 09:56:28 55 /min Pulse Strength 2020-09-09 09:56:28 Normal /min Pulse Rhythm 2020-09-09 09:56:28 Regular /min Respiratory Rate 2020-09-09 09:56:28 18 /min Weight 2020-09-09 09:56:28 054933.06\S\3648 Weight Measurement 2020-09-09 09:56:28 Standing Scale Method WEIGHT 2020-09-09 09:40:00 103.04219 kg HEIGHT 2020-09-09 09:40:00 172.72 cm Body Mass Index 2020-09-09 06:42:15 9598227.4 Height 2020-09-09 06:42:15 1\S\0.39 Weight 2020-09-09 06:42:15 857985.206\S\3760 Body Mass Index 2020-09-08 10:27:34 1006836.4 Height 2020-09-08 10:27:34 1\S\0.39 Weight 2020-09-08 10:27:34 856673.206\S\3760 WEIGHT 2020-09-08 10:27:00 106.300596 kg HEIGHT 2020-09-08 10:27:00 1 cm Procedures Procedure Date / Time Performed Performing Clinician Sourc e XR CHEST 2 VW 2021-09-19 00:08:00 Dominique Lindo [facility] ASSIGNMENT OF BENEFITS 2021-09-18 23:41:31 Doctor Unassigned, [facility] Encounters Start End Encounter Admission Attending Care Care Encounter Source Date/Time Date/Time Type Type Clinicians Facility Department ID 2022-09-03 2022-09-03 Outpatient Kaleb TREVIZO [facility] [id number] Univers 13:40:00 13:40:00 JOSE [id number] ity o f [facility] 2021-10-03 2021-10-03 Outpatient Kaleb LAMBERT [facility] [id number] Univers 14:45:00 14:45:00 AUDREY Uriostegui412 ity [facility] 2021-10-03 2021-10-03 [facility] [id number] Univers 14:45:00 14:45:00 AUDREY ity [facility] 2021-09-18 2021-09-18 [facility] [id number] Univers 19:00:38 23:59:00 DOMINIQUE zuletay o f [facility] 2021-09-18 2021-09-18 [facility] [id number] Univers 19:00:38 23:59:00 Encounter [facility] [id number] ity of [place] [id number] Nirmal as MARIA D?BLEA [id number] [facility] [address] [place] MEDICAL OFFICE [facility] 2021-09-18 2021-09-18 Outpatient R [facility] [id number] Univers 19:00:00 19:00:00 [id number] ity [facility] 2021-09-18 2021-09-18 Urgent [facility] [id number] Univers 19:00:00 19:00:00 Care Dominique HEALTH [id number] i ty of [place] [id number] Nirmal as MARIA D?BLEA [id number] Me [facility] [address] [place] MEDICAL OFFICE [facility] 2021-09-18 2021-09-18 Orders Doctor AGUIRRE [id number] Univers 00:00:00 00:00:00 Only Unassigned, ROSA M [id number] ity of [place] [facility] [id number] Nirmal as [id number] [address] 2021-09-04 2021-09-04 [facility] [id number] Univers 16:00:00 16:00:00 JOSE saunders o f [facility] 2021-08-30 2021-08-30 [facility] [id number] Univers 13:20:00 13:40:00 Visit Jose LAUGHLIN [id number] ity of [place] [id number] David howard PROFESSIO [id number] Ct dical NAL 059 [facility] 2021-02-13 2021-02-13 Outpatient Yan_W [facility] [id number] [place] 11:54:00 11:54:00 0823 [facility] 2021-01-03 2021-01-03 Hospital Radiology [facility] [id number] 15:30:00 23:59:00 Encounter [place] [id number] [place] 4.2.7.2.686 [place] [id number] 2020-11-16 2020-11-16 Outpatient Yan_W [facility] [id number] [place] 12:32:00 12:32:00 0526 [facility] 2020-07-17 2020-07-17 Letter Leelee [facility] [id number] 00:00:00 00:00:00 (Out) [facility] [id number] [place] [id number] Professio [id number] nal [address] 2020-07-16 2020-07-16 Telephone Lab, [facility] [id number] 00:00:00 00:00:00 Fam Pob I Health [id number] [place] [id number] Professio [id number] nal 044 [address] 2020-07-14 2020-07-14 Laboratory Lab, [facility] [id number] 16:12:27 16:32:27 Only Fam Pob I Health [id number] [place] [id number] Professio [id number] nal 044 [address] 2020-07-14 2020-07-14 Letter Doctor AGUIRRE [id number] 00:00:00 00:00:00 (Out) Unassigned, ROSA M [id number] [place] [facility] [id number] [id number] Results Test Description Test Time Test [...] A/G Ratio) 1.4 ratio N Comprehensive Metabolic [id number] 21:08:21 Test Item Value Reference Range Interpretation [...] the National Kidney Foundation, http://nkdep.ni h.gov Lipid [id number] 21:08:21 Test Item Value Reference Range Interpretation Comments Cholesterol Total 172 mg/dL 0-200 RISK OF HE ART (test code = DISEASEPublishe d by Cholesterol Total) [employer] Madeleine lyte Optimal Borderl ine [...] LDL/HDL Ratio=L DL Calc/HDL Chol Comprehensive Metabolic [id number] 21:08:21 Test Item Value Reference Range Interpretation [...] ag e have not been validated by e MDRD study and should be interpreted wit h caution. eGFR R esult Interpretation: eGFR > or = 60 is in the Normal RangeeGF R < 60 may mean kid kylah diseaseeGFR < 1 5 may mean kidney failure Rang es recommended by the National Kidney Foundation, http://nkdep.ni h.gov Automated [id number] 21:05:07 Test Item Value Reference Range Interpretation Comments Neutro Auto (test code = Neutro 55.7 % 36.0-70.0 Auto) Lymph Auto (test code = Lymph Auto) 33.7 % 12.0-44.0 [place] Auto (test code = [place] Auto) 7.2 % 0.0-11.0 Eos, Auto (test code = Eos, Auto) 2.6 % 0.0-7.0 Basophil Auto (test code = Basophil 0.6 % 0.0-2.0 Auto) Neutro Absolute (test code = Neutro 2.8 x10 1.6-7.4 Absolute) Lymph Absolute (test code = Lymph 1.69 x10 .50-4.60 Absolute) [place] Absolute (test code = [place] .36 x10 .00-1.20 Absolute) Eos Absolute (test code = Eos 0.13 x10 0.00-0.74 Absolute) Baso Absolute (test code = Baso 0.03 x10 0.00-0.21 Absolute) IG [id number] 21:05:07 Test Item Value Reference Range Interpretation Comments IG (test code = IG) 0.2 % 0.0-5.0 IG Abs (test code = IG Abs) 0 x10 N Complete Blood Count with [id number] 21:05:06 Test Item Value Reference Range Interpretation [...]
--- NOTE | 2021-09-29 17:50 | RAD REPORT ---
EXAM DESCRIPTION: RAD - Chest Pa And Lat (2 Views) - 09/29/2021 5:34 pm CLINICAL HISTORY: Cough;Congestion COMPARISON: Single-view chest 03/26/2021 TECHNIQUE: Frontal and lateral views of the chest were obtained. FINDINGS: The lungs are clear. Interstitial pattern matches comparison. Heart size is normal and ce ntral vasculature is within normal limits. No pleural effusion or pneumothorax seen. No acute bony finding noted. No aortic abnormality. IMPRESSION: No acute cardiopulmonary process.
[2021-09-29 18:37] LABS: Absolute Lymphocytes (CBC) 1.9 K/uL (0.7-4.9); Hematocrit 45.8 % (36.0-45.0); Lymphocytes % 17.7 % (15.3-44.8); RBC Red Blood Cell Count 4.78 M/uL (3.86-4.86)
[2021-09-29 18:52] LABS: Albumin 3.8 g/dL (3.4-5.0); Potassium 3.5 mmol/L (3.5-5.1); Protein, Total 8.4 g/dL (6.4-8.2)
[2021-09-29] MEDS ORDERED: NA CHLORIDE 0.9% 500 ML ONE (19:26)
[2021-09-29 20:02] LABS: SARS-COV-2 RT PCR NEGATIVE (NEGATIVE)
--- NOTE | 2021-09-29 20:03 | EDPHYS ---
Physician Documentation [facility] Name: Kate Brice Age: 65 yrs Sex: Female : 1955 Arrival Date: 09/29/2021 Time: 16:01 Bed 18 Private MD: ED Physician Cecil Neville HPI: 09/29 19:17 This 65 yrs old Black Female presents to ER via Ambulatory with complaints of Shortness kb Of Breath, Cough, Congestion. 19:17 The patient has not experienced similar symptoms in the past. The patient has not kb recently seen a physician. 19:18 The patient or guardian reports cough, that is intermittent, described as mild. Onset: kb The symptoms/episode began/occurred 2 week(s) ago. Severity of symptoms: At their worst the symptoms were mild, moderate, in the emergency department the symptoms are unchanged. Modifying factors: The symptoms are alleviated by nothing, the symptoms are aggravated by nothing. Associated signs and symptoms: The patient has no apparent associated signs or symptoms. Pt reports cough and congestion for 2-3 weeks. States she had an x-ray 2 weeks ago and it was normal, but still having the cough. Last night had abd cramps. Denies fever, chills, n/v/d. . Historical: - Allergies: 16:18 NKDA; ab2 - PMHx: 16:18 Arthritis; Hypertension; ab2 - PSHx: 16:18 hip replacement; hysterectomy; knee replacement; ab2 - Immunization history:: Adult Immunizations up to date. - Social history:: Smoking status: Patient denies any tobacco usage or history of. ROS: 19:06 Constitutional: Negative for fever, chills, and weight loss. kb 19:16 ENT: Positive for sinus congestion. kb 19:16 Respiratory: Positive for cough, Negative for dyspnea on exertion, hemoptysis, orthopnea, pleurisy, shortness of breath, wheezing. 19:16 Abdomen/GI: Positive for abdominal cramps, Negative for nausea, vomiting, and diarrhea. 19:16 All other systems are negative. Exam: 19:17 Constitutional: This is a well developed, well nourished patient who is awake, alert, kb and in no acute distress. Head/Face: Normocephalic, atraumatic. ENT: Moist Mucous membranes Cardiovascular: Regular rate and rhythm with a normal S1 and S2. No gallops, murmurs, or rubs. No pulse deficits. Respiratory: Respirations even and unlabored. No increased work of breathing. Talking in full sentences Abdomen/GI: Soft, non-tender. No distention Skin: Warm, dry with normal turgor. Normal color. MS/ Extremity: Pulses equal, no cyanosis. Neurovascular intact. Full, normal range of motion. Neuro: Awake and alert, GCS 15, oriented to person, place, time, and situation. Moves all extremities. Normal gait. Psych: Awake, alert, with orientation to person, place and time. Behavior, mood, and affect are within normal limits. Vital Signs: 16:16 BP 113 / 73; Pulse 63; Resp 17; Temp 98.4; Pulse Ox 99% on R/A; Weight 102.51 kg; ab2 Height 5 ft. 8 in. (172.72 cm); Pain 8/10; 16:16 Body Mass Index 34.36 (102.51 kg, 172.72 cm) ab2 MDM: 17:35 Patient medically screened. kb 19:06 Data reviewed: vital signs, nurses notes. Data interpreted: Pulse oximetry: on room air kb is 99 %. Interpretation: normal. 19:17 Counseling: I had a detailed discussion with the patient and/or guardian regarding: the kb historical points, exam findings, and any diagnostic results supporting the discharge/admit diagnosis, lab results, radiology results, the need for outpatient follow up, a family practitioner, to return to the emergency department if symptoms worsen or persist or if there are any questions or concerns that arise at home. 09/29 16:50 Order name: COVID-19/FLU A+B (Document "Date of Onset" if Symptomatic); Complete Time: kb 20:03 09/29 18:00 Order name: CBC with Diff; Complete Time: 18:40 kb 09/29 16:24 Order name: Chest Pa And Lat (2 Views) XRAY; Complete Time: 18:00 kb 09/29 18:00 Order name: CMP; Complete Time: 18:56 kb 09/29 18:00 Order name: Lipase; Complete Time: 18:56 kb 09/29 18:00 Order name: IV Saline Lock; Complete Time: 18:33 kb 09/29 18:00 Order name: Labs collected and sent; Complete Time: 18:33 kb Administered Medications: 19:25 Drug: NS 0.9% 500 ml Route: IV; Rate: bolus; Site: right forearm; ke1 Disposition Summary: 09/29/21 20:03 Discharge Ordered Location: Home kb Condition: Stable kb Diagnosis - Cough kb Followup: kb - With: Emergency Department - When: As needed - Reason: Worsening of condition Followup: kb - With: Private Physician - When: 2 - 3 days - Reason: Recheck today's complaints, Continuance of care, Re-evaluation by your physician Discharge Instructions: - Discharge Summary Sheet kb - Cough, Adult, [id number] kb Forms: - Medication Reconciliation Form kb - Thank You Letter kb - Antibiotic Education kb - Prescription Opioid Use kb Prescriptions: - dicyclomine 20 mg Oral Tablet - take 1 tablet by ORAL route 4 times per day As needed; 20 tablet; Refills: 0, kb Product Selection Permitted Addendum: 10/05/2021 18:55 Co-signature as Attending Physician, Cecil Neville MD I agree with the assessment and c esparza plan of care. Signatures: Dispatcher [employer] EDMS Lori Bettencourt, RADIATOR REPAIRER-C RADIATOR REPAIRER-Ckb Cecil Neville MD MD cha Bleininger, Alexis ab2 Ebrottie, Kouassi, RN RN ke1 Lisa Jenkins PA PA sb3 Corrections: (The following items were deleted from the chart) 09/29 19:16 19:06 Constitutional: Negative for fever, chills, and weight loss, kb kb
--- NOTE | 2021-09-29 20:03 | ER ---
Nurse's Notes [facility] Name: Kate Brice Age: 65 yrs Sex: Female : 1955 Arrival Date: 09/29/2021 Time: 16:01 Bed 18 Private MD: Diagnosis: Cough Presentation: 09/29 16:16 Chief complaint: Patient states: "I've been SOB and coughing. My stomach started ab2 hurting last night." Pt denies n/v/d, fever or chills. Pt c/o left sided abdominal pain. Coronavirus screen: Vaccine status: Patient reports receiving the 2nd dose of the covid vaccine. Client denies travel out of the [place] in the last 14 days. At this time, the client does not indicate any symptoms associated with coronavirus-19. Ebola Screen: Patient negative for fever greater than or equal to 101.5 degrees Fahrenheit, and additional compatible Ebola Virus Disease symptoms Patient denies exposure to infectious person. Patient denies travel to an Ebola-affected area in the 21 days before illness onset. No symptoms or risks identified at this time. Initial Sepsis Screen: Does the patient meet any 2 criteria? No. Patient's initial sepsis screen is negative. Does the patient have a suspected source of infection? No. Patient's initial sepsis screen is negative. Risk Assessment: Do you want to hurt yourself or someone else? Patient reports no desire to harm self or others. Onset of symptoms is unknown. 16:16 Method Of Arrival: Ambulatory ab2 16:16 Acuity: RACQUEL 3 ab2 Triage Assessment: 16:18 General: Appears in no apparent distress. uncomfortable, Behavior is calm, cooperative, ab2 appropriate for age. Pain: Complains of pain in left upper quadrant and left lower quadrant Pain currently is 8 out of 10 on a pain scale. Neuro: Level of Consciousness is awake, alert, obeys commands, Oriented to person, place, time, situation, Appropriate for age Police Radio Dispatcher are equal bilaterally Moves all extremities. Gait is steady, Speech is normal, Facial symmetry appears normal. Cardiovascular: No deficits noted. Denies chest pain, shortness of breath, Patient's skin is warm and dry. Respiratory: Reports shortness of breath cough that is Airway is patent Respiratory effort is even, unlabored, Respiratory pattern is regular, symmetrical, Onset: The symptoms/episode began/occurred yesterday, the patient reports symptoms have resolved. GI: Reports lower abdominal pain, upper abdominal pain, cramping, nausea. : No deficits noted. No signs and/or symptoms were reported regarding the genitourinary system. Historical: - Allergies: 16:18 NKDA; ab2 - PMHx: 16:18 Arthritis; Hypertension; ab2 - PSHx: 16:18 hip replacement; hysterectomy; knee replacement; ab2 - Immunization history:: Adult Immunizations up to date. - Social history:: Smoking status: Patient denies any tobacco usage or history of. Screenin:18 Abuse screen: Denies threats or abuse. Denies injuries from another. Nutritional ab2 screening: No deficits noted. Tuberculosis screening: No symptoms or risk factors identified. Fall Risk None identified. Assessment: 18:00 General: Appears in no apparent distress. Behavior is calm, cooperative, appropriate ph for age, Denies fever, feeling ill. Pain: Complains of pain in abdomen. Neuro: Level of Consciousness is awake, alert, obeys commands, Oriented to person, place, time, situation. Cardiovascular: Capillary refill < 3 seconds in bilateral fingers Patient's skin is warm and dry. Respiratory: Reports shortness of breath cough that is pain with cough Airway is patent Respiratory effort is even, unlabored, Respiratory pattern is regular, symmetrical, Breath sounds are clear bilaterally. Derm: Skin is intact, Skin is pink, warm \\T\\ dry. Musculoskeletal: Circulation, motion, and sensation intact. Range of motion: intact in all extremities. Vital Signs: 16:16 BP 113 / 73; Pulse 63; Resp 17; Temp 98.4; Pulse Ox 99% on R/A; Weight 102.51 kg; ab2 Height 5 ft. 8 in. (172.72 cm); Pain 8/10; 16:16 Body Mass Index 34.36 (102.51 kg, 172.72 cm) ab2 ED Course: 16:01 Patient arrived in ED. mr 16:18 Triage completed. ab2 16:19 Arm band placed on right wrist. ab2 16:49 Lori Bettencourt FNP-C is PHCP. kb 16:49 Cecil Neville MD is Attending Physician. kb 17:35 Chest Pa And Lat (2 Views) XRAY In Process Unspecified. EDMS 17:43 Smith, Corina, RN is Primary Nurse. ph 18:27 Initial lab(s) drawn, by me, sent to lab. Inserted saline lock: 22 gauge in right dh3 forearm, using aseptic technique. Blood collected. 19:15 Patient has correct armband on for positive identification. Bed in low position. Call ph light in reach. Side rails up X 1. Pulse ox on. NIBP on. Door closed. Noise minimized. Pillow given. 19:15 No provider procedures requiring assistance completed. ph 20:31 IV discontinued, intact, bleeding controlled, No redness/swelling at site. Pressure ll3 dressing applied. Administered Medications: 19:25 Drug: NS 0.9% 500 ml Route: IV; Rate: bolus; Site: right forearm; ke1 Outcome: 20:03 Discharge ordered by . kb 20:31 Discharged to home ambulatory. ll3 20:31 Condition: stable 20:31 Discharge instructions given to patient, Instructed on discharge instructions, follow up and referral plans. medication usage, Demonstrated understanding of instructions, follow-up care, medications, Prescriptions given X 1. 20:32 Patient left the ED. ll3 Signatures: Dispatcher [employer] EDOR Lori Bettencourt, BRIGADIER-C BRIGADIER-Ckb Erika March Corina Smith, RN RN Adrianne Alan [facility] Matilda Fernández RN RN 3 Pietro Adams Kouassi, RN RN ke1 Corrections: (The following items were deleted from the chart) 20:17 19:25 NS 0.9% 500 ml IV at bolus in right antecubital ke1 ke1 20:32 20:31 Discharge instructions given to patient, Instructed on discharge instructions, ll3 follow up and referral plans. Demonstrated understanding of instructions, follow-up care, ll3
[2021-09-30 02:33] VITALS: BP 113/73; TEMP 98.4; O2SAT 99
== END 2021-09-29 20:32 | disposition home or self-care (01) ==
LOC: ER 15:57
DX: R05.9 Cough, unspecified (principal); I10 Essential (primary) hypertension; Z20.822 Contact with and (suspected) exposure to COVID-19
CPT/HCPCS: 85025; 36415; 83690; 80053; 0240U; 71046; 99284; J7040

== ENCOUNTER 2022-01-08 13:14 | Emergency (ER) | payer OTHER ==
--- NOTE | 2022-01-08 15:36 | RAD REPORT ---
EXAM DESCRIPTION: [facility] Single View01/08/2022 3:20 pm CLINICAL HISTORY: Shortness of breath COMPARISON: September 2021 FINDINGS: The lungs appear clear of acute infiltrate. The heart is normal size Central venous line in place IMPRESSION: No acute abnormalities displayed
[2022-01-08 15:53] LABS: Absolute Lymphocytes (CBC) 1.6 K/uL (0.7-4.9); Hematocrit 37.1 % (36.0-45.0); Lymphocytes % 49.8 % (15.3-44.8); MCV 96.2 fL (80-100); MPV 7.5 fL (7.6-11.3); RBC Red Blood Cell Count 3.85 M/uL (3.86-4.86)
[2022-01-08 15:59] LABS: Troponin High Sensitivity 8.5 pg/mL (<58.9)
[2022-01-08 16:00] LABS: Potassium 3.2 mmol/L (3.5-5.1)
--- NOTE | 2022-01-08 16:27 | ER ---
Nurse's Notes [facility] Name: Kate Brice Age: 66 yrs Sex: Female : 1955 Arrival Date: 01/08/2022 Time: 13:16 Bed 7 Private MD: Diagnosis: Epistaxis;Shortness of breath Presentation: 01/08 13:57 Chief complaint:. Chief complaint: Patient states: "woke up with a nose bleed and tp1 spitting up blood", denies trauma to nose. states sometimes coughs up blood tinged mucus prior to nose bleed. states feels short winded. SOB started when walking into building and feels like heart was beating fast. Coronavirus screen: Vaccine status: Patient reports receiving the 2nd dose of the covid vaccine. Ebola Screen: Patient denies exposure to infectious person. Patient denies travel to an Ebola-affected area in the 21 days before illness onset. Initial Sepsis Screen: Does the patient meet any 2 criteria? No. Patient's initial sepsis screen is negative. Does the patient have a suspected source of infection? No. Patient's initial sepsis screen is negative. Risk Assessment: Do you want to hurt yourself or someone else? Patient reports no desire to harm self or others. Onset of symptoms was January 08, 2022. 13:57 Method Of Arrival: Ambulatory tp1 13:57 Acuity: RACQUEL 3 tp1 Triage Assessment: 13:57 General: Appears in no apparent distress. comfortable, Behavior is calm, cooperative. tp1 Pain: Denies pain. Neuro: Level of Consciousness is awake, alert, obeys commands, Oriented to person, place, time, situation, Denies dizziness. Cardiovascular: Chest pain is denied. Respiratory: Reports shortness of breath on exertion Onset: The symptoms/episode began/occurred just prior to arrival, the patient has mild shortness of breath. Historical: - Allergies: 14:01 NKDA; tp1 - Home Meds: 14:01 aspirin 81 mg Oral TbEC 1 tab once daily [Active]; Fish Oil Oral [Active]; vit D3-folic tp1 acid-vit B2-B6-B12 Oral [Active]; losartan oral [Active]; 17:34 amlodipine 5 mg tab 1 tab once daily [Active]; hydrochlorothiazide 25 mg Oral tab 1 tab bp once daily [Active]; - PMHx: 14:01 Hypertension; breast cancer; Arthritis; tp1 - PSHx: 14:01 knee replacement; hysterectomy; hip replacement; tp1 - Immunization history:: Client reports receiving the 2nd dose of the Covid vaccine. - Social history:: Smoking status: Patient denies any tobacco usage or history of. Screenin:00 Abuse screen: Denies threats or abuse. Denies injuries from another. Nutritional bp screening: No deficits noted. Tuberculosis screening: No symptoms or risk factors identified. Fall Risk None identified. Assessment: 16:05 General: Dr. Parra at beside to re-assess . bm7 17:00 Cardiovascular: Rhythm is sinus rhythm. Respiratory: Airway is patent Respiratory bp effort is even, unlabored, Breath sounds are clear bilaterally. 17:30 Reassessment: PT DC HOME AMBULATORY, DX WITH EPISTAXIS. bp Vital Signs: 13:57 BP 101 / 66; Pulse 85; Resp 16; Temp 99.1; Pulse Ox 100% on R/A; Weight 98.88 kg; tp1 Height 5 ft. 7 in. (170.18 cm); Pain 0/10; 16:07 BP 100 / 66 LA Sitting (auto/lg); Pulse 76; Resp 20; Pulse Ox 98% on R/A; Pain 0/10; bm7 17:30 BP 111 / 77; Pulse 66; Resp 20; Pulse Ox 97% ; bp 13:57 Body Mass Index 34.14 (98.88 kg, 170.18 cm) tp1 ED Course: 13:16 Patient arrived in ED. as 13:57 Arm band placed on. tp1 14:01 Triage completed. tp1 14:09 Artemio Parra DO is Attending Physician. ms3 14:37 Dominique Purdy, ENRIKE is Primary Nurse. bm7 15:20 XRAY Chest (1 view) In Process Unspecified. EDMS 15:33 Inserted saline lock: 20 gauge in right antecubital area, using aseptic technique. bm7 Blood collected. 15:35 Patient has correct armband on for positive identification. Placed in gown. Bed in low bm7 position. Call light in reach. nurse monitoring on. Pulse ox on. NIBP on. Door closed. Noise minimized. Warm blanket given. Assisted to bathroom. 15:35 Initial lab(s) drawn, by me, sent to lab. bm7 16:03 No apparent distress. bm7 16:26 Niranjan Trevino DO is Referral Physician. ms3 17:30 No provider procedures requiring assistance completed. IV discontinued, intact, bp bleeding controlled, No redness/swelling at site. Pressure dressing applied. Administered Medications: 17:15 Drug: Potassium Chloride 40 mEq Route: PO; bp 17:31 Follow up: Response: No adverse reaction bp Outcome: 16:26 Discharge ordered by MD. ms3 17:34 Discharged to home ambulatory, with family. bp 17:34 Condition: stable 17:34 Discharge instructions given to patient, Instructed on discharge instructions, follow up and referral plans. Demonstrated understanding of instructions, follow-up care. 17:34 Patient left the ED. bp Signatures: Dispatcher [employer] EDMS Kate Lerner Brian, RN RN bp Artemio Parra DO DO ms3 Dominique Purdy RN RN bm7 Rani Rodriguez tp1 Corrections: (The following items were deleted from the chart) 14:03 13:57 Pulse 85bpm; Resp 16bpm; Pulse Ox 100% RA; Temp 99.1F; 98.88 kg; Height 5 ft. 7 tp1 in.; BMI: 34.1; Pain 0/10; tp1 14:07 13:57 Chief complaint: Patient states: "woke up with a nose bleed and spitting up tp1 blood", states feels short winded. SOB started when walking into building and feels like heart was beating fast. tp1
--- NOTE | 2022-01-08 16:27 | EDPHYS ---
Physician Documentation [facility] Name: Kate Brice Age: 66 yrs Sex: Female : 1955 Arrival Date: 01/08/2022 Time: 13:16 Bed 7 Private MD: ED Physician Artemio Parra HPI: 01/08 15:04 This 66 yrs old Black Female presents to ER via Ambulatory with complaints of Shortness ms3 Of Breath, Cough, Nose Bleed. 15:04 The patient has shortness of breath with light activity. Onset: The symptoms/episode ms3 began/occurred 3 day(s) ago. Duration: The symptoms are intermittent. The patient's shortness of breath has no apparent modifying factors. Associated signs and symptoms: Pertinent positives: This patient does not have any pertinent positive signs or symptoms associated with shortness of breath. Pertinent negatives: chest pain. Severity of symptoms: At their worst the symptoms were mild in the emergency department the symptoms have resolved Pain is currently a 0 / 10. Historical: - Allergies: 14:01 NKDA; tp1 - Home Meds: 14:01 aspirin 81 mg Oral TbEC 1 tab once daily [Active]; Fish Oil Oral [Active]; vit D3-folic tp1 acid-vit B2-B6-B12 Oral [Active]; losartan oral [Active]; 17:34 amlodipine 5 mg tab 1 tab once daily [Active]; hydrochlorothiazide 25 mg Oral tab 1 tab bp once daily [Active]; - PMHx: 14:01 Hypertension; breast cancer; Arthritis; tp1 - PSHx: 14:01 knee replacement; hysterectomy; hip replacement; tp1 - Immunization history:: Client reports receiving the 2nd dose of the Covid vaccine. - Social history:: Smoking status: Patient denies any tobacco usage or history of. ROS: 15:04 Constitutional: Negative for fever, and chills. Neck: Negative for injury, pain, and ms3 swelling, Cardiovascular: Negative for chest pain, and palpitations. 15:04 Skin: Negative for injury, rash, and discoloration, Neuro: Negative for headache, weakness, numbness, tingling. 15:04 ENT: Positive for nose bleed. 15:04 Respiratory: Positive for dyspnea on exertion. 15:04 All other systems are negative. Exam: 15:04 Constitutional: This is a well developed, well nourished patient who is awake, alert, ms3 and in no acute distress. Head/Face: Normocephalic, atraumatic. Eyes: Pupils equal round and reactive to light, extra-ocular motions intact. Lids and lashes normal. Conjunctiva and sclera are non-icteric and not injected. Periorbital areas with no swelling, redness, or edema. Neck: Trachea midline, no cervical lymphadenopathy. Supple, full range of motion without nuchal rigidity, or vertebral point tenderness. No Meningismus. Chest/axilla: Normal chest wall appearance and motion. Nontender with no deformity. Cardiovascular: Regular rate and rhythm with a normal S1 and S2. No gallops, murmurs, or rubs. Normal PMI, no JVD. No pulse deficits. Respiratory: Lungs have equal breath sounds bilaterally, clear to auscultation and percussion. No rales, rhonchi or wheezes noted. No increased work of breathing, no retractions or nasal flaring. Abdomen/GI: Soft, non-tender, with normal bowel sounds. No distension or tympany. No guarding or rebound. No evidence of tenderness throughout. Skin: Warm, dry with normal turgor. Normal color with no rashes, no lesions, and no evidence of cellulitis. 15:06 ECG was reviewed by the Attending Physician. ms3 15:09 ENT: Nose: Nasal mucosa: Dried blood. Turbinates: are normal, abrasion, is not ms3 appreciated, bleeding, is not appreciated, clotted blood, in left nare, nasal drainage, is not appreciated. Vital Signs: 13:57 BP 101 / 66; Pulse 85; Resp 16; Temp 99.1; Pulse Ox 100% on R/A; Weight 98.88 kg; tp1 Height 5 ft. 7 in. (170.18 cm); Pain 0/10; 16:07 BP 100 / 66 LA Sitting (auto/lg); Pulse 76; Resp 20; Pulse Ox 98% on R/A; Pain 0/10; bm7 17:30 BP 111 / 77; Pulse 66; Resp 20; Pulse Ox 97% ; bp 13:57 Body Mass Index 34.14 (98.88 kg, 170.18 cm) tp1 MDM: 14:52 Patient medically screened. ms3 16:26 Differential diagnosis: Anemia CHF exacerbation, Myocardial Infarction pulmonary edema. ms3 Data reviewed: vital signs, nurses notes, lab test result(s), radiologic studies, and as a result, I will discharge patient. Counseling: I had a detailed discussion with the patient and/or guardian regarding: the historical points, exam findings, and any diagnostic results supporting the discharge/admit diagnosis, lab results, radiology results, the need for outpatient follow up, to return to the emergency department if symptoms worsen or persist or if there are any questions or concerns that arise at home. ED course: Discussed labs, EKG, CXR , PE findings with patient. Patient to follow up with PMD in 2-3 days. Patient understands/ agrees with plan. All questions answered. Return precautions given to include worsening symptoms, or any other concerns. Patient is improved, in NAD, non-toxic appearing, ambulatory in ED, speaking full sentences. . 01/08 14:53 Order name: Basic Metabolic Panel; Complete Time: 16:02 ms3 01/08 14:53 Order name: CBC with Diff; Complete Time: 16:02 ms3 01/08 14:53 Order name: NT PRO-BNP; Complete Time: 16:02 ms3 01/08 14:53 Order name: Troponin HS; Complete Time: 16:02 ms3 01/08 14:53 Order name: XRAY Chest (1 view); Complete Time: 16:02 ms3 01/08 14:53 Order name: EKG; Complete Time: 14:54 ms3 01/08 14:53 Order name: Cardiac monitoring; Complete Time: 15:34 ms3 01/08 14:53 Order name: EKG - Nurse/Tech; Complete Time: 15:33 ms3 01/08 14:53 Order name: IV Saline Lock; Complete Time: 15:33 ms3 01/08 14:53 Order name: Labs collected and sent; Complete Time: 15:33 ms3 01/08 14:53 Order name: O2 Per Protocol; Complete Time: 15:33 ms3 01/08 14:53 Order name: O2 Sat Monitoring; Complete Time: 15:33 ms3 EC:06 Rate is 77 beats/min. Rhythm is regular. QRS [place] is Normal. Clinical impression: ms3 Normal ECG. Interpreted by me. Reviewed by me. Administered Medications: 17:15 Drug: Potassium Chloride 40 mEq Route: PO; bp 17:31 Follow up: Response: No adverse reaction bp Disposition Summary: 01/08/22 16:26 Discharge Ordered Location: Home ms3 Condition: Stable ms3 Diagnosis - Epistaxis ms3 - Shortness of breath ms3 Followup: ms3 - With: Niranjan Trevino DO - When: 2 - 3 days - Reason: Re-evaluation by your physician Discharge Instructions: - Discharge Summary Sheet ms3 - Nosebleed, Adult ms3 - Shortness of Breath, Adult ms3 Forms: - Medication Reconciliation Form ms3 - Thank You Letter ms3 - Antibiotic Education ms3 - Prescription Opioid Use ms3 Signatures: Dispatcher [employer] Kiko Monson RN RN Artemio Ybarra DO DO ms3 Rani Rodriguez tp1
[2022-01-08] MEDS ORDERED: POTASSIUM CL SA 10 MEQ TAB PO ONE (17:29)
[2022-01-08 17:39] VITALS: TEMP 99.1
[2022-01-08 17:46] VITALS: BP 111/77; O2SAT 97
--- NOTE | 2022-01-09 08:16 | EKG ---
Test Date: 2022-01-08 Test Time: 15:06:58 Window Glazier Helper: SABINE MEASUREMENT RESULTS: Intervals: Rate: 77 SD: 140 QRSD: 76 QT: 392 QTc: 443 [place]: P: 50 SD: 140 QRS: 23 T: 8 INTERPRETIVE STATEMENTS: Normal sinus rhythm Normal ECG Compared to ECG 03/26/2021 15:15:29 No significant changes Electronically Signed On 01-09-22 08:12:43 CDT by Hunter Tejeda
== END 2022-01-08 17:34 | disposition home or self-care (01) ==
LOC: ER 13:14
DX: R04.0 Epistaxis (principal); R06.02 Shortness of breath; I10 Essential (primary) hypertension; Z79.82 Long term (current) use of aspirin
CPT/HCPCS: 36415; 71045; 80048; 83880; 84484; 85025; 93005; 99284

== ENCOUNTER 2022-03-18 11:18 | Emergency (ER) | payer OTHER ==
--- OUTSIDE RECORDS SUMMARY | 2022-03-18 11:23 | XMS REPORT | Clinical Summary ---
:1955 Author Organization [facility] MD [facility] Address [address] [place] [address] Care Team Providers Name Role Phone aKsi Triplett MD Unavailable Larissa Fermin MD Unavailable [phone] Madeleine Plaza MD Primary Care Provider [phone] Allergies Active Allergy Reactions Severity Noted Date Comments Lidocaine 10/27/2021 Makes hands itc h few days after injection Paclitaxel Other (See Comments) 11/14/2021 CO: cou ghing flushing, feeling tighten ing of breath & feeling hot. Infusion stopped. Diphen hydramine 50mg, famotidin e 40mg, & hydrocortisone 100mg given. After resolutio n of symptoms infusion rechal lenged @ 1/2 rate and finish ed infusion at full rate w/o f urther complications Medications Medication Sig Dispensed Refills Start Date End Date Status aspirin 81 mg chewable Chew 81 mg daily. 0 Active tablet omega-3 fatty Take 1,000 mg by 0 Active acids/fish oil (fish mouth. oil-omega-3 fatty acids) 300-1,000 mg capsule cholecalciferol, Take 1 capsule by 0 Active vitamin D3, 100 mcg mouth daily. (4,000 unit) cap losartan-hydrochloroth Take 1 tablet by 0 Active iazide (HYZAAR) 100-25 mouth daily. mg per tablet acetaminophen Take by mouth as 0 Active (TYLENOL) 500 mg needed. tablet albuterol (VENTOLIN INHALE 1 PUFF 0 09/19/2021 Active HFA,PROAIR HFA) 90 EVERY 6-8 HOURS mcg/puff inhaler NEEDED atorvastatin (LIPITOR) Take 20 mg by 0 03/01/2021 Active 20 mg tablet mouth at bedtime. nitroglycerin Place 0.4 mg under 0 04/14/2021 Active (NITROSTAT) 0.4 mg SL the tongue. tablet cyanocobalamin, Take by mouth. 0 Active vitamin B-12, (VITAMIN B-12 ORAL) prochlorperazine Take 1 tablet (10 30 tablet 4 11/13/2021 Active (Compazine) 10 mg mg) by mouth every tabletIndications: 6 (six) hours as Infiltrating duct needed for nausea carcinoma of right or vomiting. female breast traMADol (Ultram) 50 Take 1 tablet (50 30 tablet 2 11/13/2021 Active mg tabletIndications: mg) by mouth every Infiltrating duct 6 (six) hours as carcinoma of right needed for female breast moderate pain (headache). lidocaine-prilocaine Apply topically to 30 g 0 11/14/2021 Active (EMLA) 2.5-2.5% affected area(s) creamIndications: as needed for mild Infiltrating duct pain. carcinoma of right female breast triamcinolone Apply topically to 80 g 8 11/24/2021 Active (KENALOG) 0.1% affected area(s) creamIndications: twice daily. Infiltrating duct carcinoma of right female breast hydroxyzine HCl Take 1 tablet (25 90 tablet 6 12/05/2021 Active (ATARAX) 25 mg mg) by mouth every tabletIndications: 8 (eight) hours as Infiltrating duct needed for carcinoma of right itching. female breast ondansetron (ZOFRAN) 8 Take 1 tablet (8 30 tablet 2 02/11/2022 Active mg tabletIndications: mg) by mouth every Infiltrating duct 12 (twelve) hours carcinoma of right as needed for female breast nausea or vomiting. Take scheduled for three days after chemotherapy then, PRN. prochlorperazine Take 1 tablet (10 30 tablet 4 02/11/2022 Active (COMPAZINE) 10 mg mg) by mouth every tabletIndications: 6 (six) hours as Infiltrating duct needed for nausea carcinoma of right or vomiting female breast (breakthrough). traMADol (Ultram) 50 Take 1 tablet (50 30 tablet 2 02/11/2022 Active mg tabletIndications: mg) by mouth every Infiltrating duct 6 (six) hours as carcinoma of right needed for female breast moderate pain (headache). ondansetron (ZOFRAN) 8 Take 1 tablet (8 60 tablet 5 03/06/2022 Active mg tabletIndications: mg) by mouth every Infiltrating ductal 8 (eight) hours as carcinoma of central needed for nausea. 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 10/25/2021 Cancer Staging: Clinical stage from 2021: Stage IIB (cT2, cN1(f), cM0, G2, ER+, W[place]-, HER2-) - Unsigned Encounters Date Type Specialty Care Team Description 03/07/2022 Orders Only Breast Surgical [facility] Chelsie mak PA 03/06/2022 Infusion Infusion Services Danisha Arias Infiltra tinroni ductal carcinoma of central Pakeltis, portion of rig t Korin Messina RN female breast (Primary Dx) 03/06/2022 Office Visit Breast Medical Danisha Arias Infiltratin g ductal Oncology carcinoma of central Risa Trevino, portion of rig PA female breast (Primary Dx) 03/06/2022 Orders Only Breast Medical Danisha Arias, Oncology MD 03/06/2022 Orders Only Breast Medical Risa Trevino, Infiltrating ductal Oncology PA carcinoma of ce ntral portion of rig t female breast (Primary Dx) 03/06/2022 Travel 02/22/2022 Orders Only Radiology Kasia Ivoyr MD 02/22/2022 Orders Only Breast Surgical [facility] Infiltrati ng ductal Oncology Chelsie mak PA carcinoma of ce ntral portion of rig t female breast (Primary Dx) 02/22/2022 Orders Only Breast Surgical [facility] Infiltrati ng ductal Oncology Chelsie mak PA carcinoma of ce ntral portion of righ t female breast (Primary Dx) 02/20/2022 Ancillary Procedure Radiology Risa Trevino, Infiltr ating duct PA carcinoma of ri ght female breast 02/20/2022 Ancillary Procedure Radiology Risa Trevino, Infiltr ating duct PA carcinoma of ri ght female breast 02/20/2022 Travel 02/16/2022 Telephone Dermatology Danisha Arias MD 02/15/2022 Orders Only Breast Surgical [facility] Chelsie mak PA 02/14/2022 Consult Radiation Oncology Dianna Oconnor, Infiltr ating ductal carcinoma of central portion of right female breast (Primary Dx); MD Bong russell ct carcinoma of right female breast 02/14/2022 Travel 02/13/2022 Infusion Infusion Services Risa Trevino, Infiltrat ing duct PA carcinoma of right Rolle, Samanta female breast Uet, RN (Primary Dx) 02/13/2022 Office Visit Breast Medical Danisha Arias, Infiltratin g duct carcinoma of right female breast (Primary Dx); Oncology MD Bong russell ctal carcinoma of central portion of right female breast 02/13/2022 Orders Only Breast Medical Risa Trevino, Oncology PA 02/13/2022 Travel 02/09/2022 Office Visit Breast Surgical Aracelisi, Madeleine Infiltrati ng duct Oncology Remedios Moore, carcinoma of r ight female breast Alan-Chelsie Mathis PA 02/09/2022 Ancillary Procedure Radiology Infiltra ting duct carcinoma of ri ght female breast 02/09/2022 Prep for Surgery Breast Surgical [facility] Infilt rating duct Oncology Chelsie mak PA carcinoma of ri ght female breast (Primary Dx) 02/09/2022 Travel 02/06/2022 Infusion Infusion Services Risa Trevino, Infiltrat ing duct PA carcinoma of right Rodil, female breast Karlie Mejia RN (Primary Dx) 02/06/2022 Travel 01/30/2022 Infusion Infusion Services Risa Trevino, Infiltrat ing duct PA carcinoma of right Becky Macedo, female breast RN (Primary Dx) 01/30/2022 Travel 01/22/2022 Infusion Infusion Services Gil Edwards, Infiltrati ng duct SAIL CUTTER carcinoma of right Pakeltis, female breast Korin Messina RN (Primary Dx) 01/22/2022 Travel 01/16/2022 Orders Only Breast Medical Risa Trevino, Oncology PA 01/15/2022 Infusion Infusion Services Gil Edwards, Infiltrati ng duct SAIL CUTTER carcinoma of right Ivis Edwards, female breast RN (Primary Dx) 01/15/2022 Office Visit Breast Medical Danisha Arias, Infiltratin g duct Oncology carcinoma of ri ght female breast (Primary Dx) 01/15/2022 Orders Only Breast Medical Risa Trevino, Infiltrating duct Oncology PA carcinoma of ri ght female breast (Primary Dx) 01/15/2022 Travel 01/09/2022 Orders Only Breast Medical Risa Trevino, Oncology PA 01/08/2022 Orders Only Breast Medical Risa Trevino, Infiltrating duct Oncology PA carcinoma of ri ght female breast (Primary Dx) 01/08/2022 Telephone Breast Medical Danisha Arias, Oncology MD 01/03/2022 Orders Only Breast Medical Risa Trevino, Infiltrating duct Oncology PA carcinoma of ri ght female breast (Primary Dx) 01/02/2022 Infusion Infusion Services Gil Edwards, Infiltrati ng duct SAIL CUTTER carcinoma of right Adelaide Monsivais female breast W, RN (Primary Dx) 01/02/2022 Travel 12/29/2021 Telephone Oncology Jackie Deal RN 12/26/2021 Infusion Infusion Services Gil Edwards, Infiltrati ng duct SAIL CUTTER carcinoma of right Adelaide Monsivais female breast W, RN (Primary Dx) 12/26/2021 Office Visit Oncology Gil Edwards, Infiltrating du ct SAIL CUTTER carcinoma of ri ght female breast (Primary Dx) 12/26/2021 Orders Only Breast Medical Danisha Arias, Oncology 12/26/2021 Travel 12/19/2021 Infusion Infusion Services Gil Edwards, Infiltrati ng duct SAIL CUTTER carcinoma of right Gunjan Bloom female breast S, RN (Primary Dx) 12/19/2021 Travel 12/13/2021 Orders Only [facility] Chelsie mak, PA 12/13/2021 Orders Only Breast Medical Risa Trevino, Oncology PA 12/12/2021 Infusion Infusion Services Gil Edwards, Infiltrati ng duct SAIL CUTTER carcinoma of right Silvan, female breast Shahnaz Chavez (Primary Dx) RN 12/12/2021 Orders Only Oncology Gil Edwards, Infiltrating du ct SAIL CUTTER carcinoma of ri ght female breast (Primary Dx) 12/12/2021 Travel 12/11/2021 Telephone Dermatology Chey Girard RN 12/07/2021 Telephone Breast Medical Jackie Deal, telemetry nurse 12/05/2021 Infusion Infusion Services Gil Edwards, Infiltrati ng duct SAIL CUTTER carcinoma of right Gunjan Bloom female breast Ricky RN (Primary Dx) 12/05/2021 Office Visit Breast Medical Gil Edwards, Infiltrating duct Oncology SAIL CUTTER carcinoma of right Danisha Arias, female breast (Primary Dx) 12/05/2021 Travel 12/04/2021 Telephone Genitourinary Oncology Gagandeep Mccord RN 11/28/2021 Infusion Infusion Services Risa Trevino, Infiltrat ing duct PA carcinoma of right Becky Macedo, female breast RN (Primary Dx) 11/28/2021 Orders Only Radiology Aaron Urbano PA 11/28/2021 Travel 11/28/2021 Telephone Oncology Jackie Deal RN 11/28/2021 Orders Only Breast Medical Uriel Risa Ute, Oncology PA 11/24/2021 Documentation Breast Medical Uriel Risa Ute, Oncology PA 11/24/2021 Orders Only Breast Medical Trevino, Risa B, Infiltrating duct Oncology PA carcinoma of ri ght female breast (Primary Dx) 11/21/2021 Hospital Encounter Infusion Services Danisha Arias, In filtrating duct MD carcinoma of right Julia, female breast ENRIKE Eubanks (Primary Dx) 11/21/2021 Travel 11/14/2021 Infusion Infusion Services Risa Trevino, Infiltrat ing duct PA carcinoma of right Pakeltis, female breast Korin Messina RN (Primary Dx) 11/14/2021 Office Visit Breast Medical Risa Trevino, Infiltrating duct Oncology PA carcinoma of right Danisha Arias, female breast (Primary Dx) 11/14/2021 Hospital Encounter Radiology Risa Trevino, Infiltra ting duct PA carcinoma of right Max Woodward female breast 11/14/2021 Orders Only Gastrointestinal Antionette Norman MD Medical Oncology 11/14/2021 Travel 11/10/2021 Anesthesia Event Anesthesiology Logan Palomo APN 11/10/2021 Hospital Encounter Radiology Shamekatti, Madeleine Infiltr ating duct carcinoma of right female breast (Primary Dx); Remedios Moore, Preprocedural examination done Edelmira Berumen PA 11/10/2021 Ancillary Procedure Radiology Risa Trevino, Infiltr ating duct PA carcinoma of ri ght female breast 11/10/2021 Clinical Support Madeleine Moe Suspicion (Primary Remedios Moore, Dx) Carol Ann Carranza MA 11/10/2021 POEM Appointments Anesthesiology Nazia Boudreaux PA 11/10/2021 Travel 11/09/2021 Orders Only Radiology Nazia Boudreaux PA 11/08/2021 Orders Only Radiology Sylvester Beverly PA 11/08/2021 Telephone Radiology Tammy Daily I 11/06/2021 Consult Breast Medical Danisha Arias Infiltratin g duct Oncology carcinoma of ri ght female breast (Primary Dx) 11/06/2021 Orders Only Breast Surgical [facility] Infiltrati ng duct Oncology obdulio, Cheslie, PA carcinoma of ri ght female breast (Primary Dx) 11/06/2021 Orders Only Breast Medical Risa Trevino, Oncology PA 11/06/2021 Travel 11/03/2021 Hospital Encounter Cardiology [facility], ab, Shortnes s of breath 11/03/2021 Consult Cardiology Sony, [facility], Shortness of b reath (Primary Dx); MD Bong russell ct carcinoma of right female breast; Other chest berenice n; Abnormal echoca rdiogram 11/03/2021 Travel 11/02/2021 Ancillary Procedure Radiology [facility] Infilt rating duct z, Chelsie, PA carcinoma of ri ght female breast 11/02/2021 Ancillary Procedure Radiology [facility] Margie maksy, PA 11/02/2021 Ancillary Procedure Radiology [facility] Infilt rating duct z, Chelsie, PA carcinoma of ri ght female breast 11/02/2021 Travel 10/27/2021 Office Visit Breast Surgical Madeleine Plaza Infiltrati ng duct Oncology Remedios Moore, carcinoma of r ight MD female breast (Primary Dx) 10/27/2021 [facility] Patient Access [facility] 10/27/2021 Travel 10/26/2021 Ancillary Procedure Radiology Madeleine Plaza Cancer Remedios Moore MD 10/26/2021 Ancillary Procedure Radiology Madeleine Plaza Cancer Remedios Moore MD 10/26/2021 Ancillary Procedure Radiology Madeleine Plaza Cancer Remedios Moore MD 10/26/2021 Ancillary Procedure Radiology Madeleine Plaza Cancer Remedios Moore MD 10/26/2021 Ancillary Procedure Radiology Infiltra ting duct carcinoma of ri ght female breast 10/26/2021 Ancillary Procedure Radiology [facility] Infilt rating duct z, Chelsie, PA carcinoma of ri ght female breast 10/26/2021 Ancillary Procedure Radiology [facility] Infilt rating duct z, Chelsie, PA carcinoma of ri ght female breast 10/26/2021 Travel 10/25/2021 Lab Requisition Toñito Guevara MD Qiu, MD Michael 10/20/2021 Orders Only Breast Surgical [facility] Infiltrati ng duct Oncology z, Chelsie, ZURDO carcinoma of ri ght female breast (Primary Dx) after 03/18/2021 Surgical History Surgery Date Site/Laterality Comments HYSTERECTOMY TOTAL HIP ARTHROPLASTY Bilateral TOTAL KNEE ARTHROPLASTY Right Medical History Medical History Date Comments Hypertension Coronary artery disease due to calcified coronary lesion Osteoarthritis Hyperlipidemia Bradycardia Family History Medical History Relation Name Comments No Known Problems Maternal Cousin Cervical cancer Sister Colon cancer Sister Relation Name Status Comments Maternal Cousin Sister Social History Tobacco Use Types Packs/Day Years Used Date Never Smoker Smokeless Tobacco: Never Used Alcohol Use Standard Drinks/Week Comments Never 0 (1 standard drink = 0.6 oz pure alcoho l) Sex Assigned at Date Recorded Not on file Job Start Date Occupation Industry Not on file Not on file Not on file COVID-19 Exposure Response Date Recorded In the last 10 days, have you been in contact with No / Unsu re 03/06/2022 1:26 PM CDT someone who was confirmed or suspected to have Coronavirus/COVID-19? Obstetrics History Para Term AB IAB SAB Ectopic Multiple Living Live Births 2 2 Date Outcome GA Total Labor/2nd/3rd Weight Sex Delivery Anes PTL Sakshi A 1 A5 Name Clin Labor Para Para Comments Parity: 21 yo Menarche: 15 yo BCP none HRT: none Menopause: 40's Last Filed Vital Signs Vital Sign Reading Time Taken Comments Blood Pressure 116/77 03/06/2022 2:50 PM CDT Pulse 67 03/06/2022 2:50 PM CDT Temperature 36.7 C (98 F) 03/06/2022 2:50 PM CDT Respiratory Rate 18 03/06/2022 2:50 PM CDT Oxygen Saturation 99% 11/21/2021 2:08 PM CDT Inhaled Oxygen Concentration - - Weight 97 kg (213 lb 13.5 oz) 03/06/2022 1:29 PM CDT Height 167 cm (5' 5.75") 02/13/2022 2:23 PM CDT Body Mass Index 34.78 02/13/2022 2:23 PM CDT Plan of Treatment Date Type Specialty Care Team Description 03/27/2022 Lab Lab Risa Trevino PA [address] [place] [phone] 03/27/2022 Office Visit Breast [facility] Danisha Arias, Oncology [address] [place] [address] [phone] 03/27/2022 Infusion Infusion Services Risa Trevino PA [address] [place] [address] [phone] 04/02/2022 Consult Internal Medicine Chelsie Carlisle PA [address] [place] [phone] 04/02/2022 POEM Appointments Anesthesiology [facility], Madeleine Moore MD [address] [place] [address] [phone] 04/17/2022 Lab Lab Risa Trevino PA [address] [place] [address] [phone] 04/17/2022 Office Visit Breast [facility] Danisha Arias, Oncology [address] [place] [address] [phone] 04/17/2022 Infusion Infusion Services Risa Trevino PA [address] [place] [address] [phone] 04/27/2022 Ancillary Procedure Radiology Chelsie Carlisle PA [address] [place] [address] [phone] 04/27/2022 Ancillary Procedure Radiology Chelsie Carlisle PA [address] [place] [address] [phone] 04/27/2022 Office Visit Breast Surgical Madeleine Plaza MD [address] [place] [address] [phone] 05/23/2022 Consult Plastic Surgery Yoav Valdez MD [address] [place] [address] [phone] 05/23/2022 Clinical Support Covid Chelsie Carlisle PA [address] [place] [address] [phone] 05/23/2022 Ancillary Procedure Radiology 05/23/2022 Ancillary Procedure Radiology 05/23/2022 Ancillary Procedure Radiology 05/23/2022 Ancillary Procedure Radiology 05/24/2022 Hospital Encounter Madeleine Plaza MD [address] [place] [address] [phone] 05/24/2022 Surgery Madeleine Plaza, ALIA - O THER [address] [place] [address] [phone] Name Priority Associated Diagnoses Date/Time SEGMENTAL MASTECTOMY - OTHER Infiltrating duct 1 07/25/2021 7:00 AM COMMUTATOR OPERATOR carcinoma of right female breast TARGETED AXILLARY NODE Infiltrating duct 12/01/2 022 7:00 AM COMMUTATOR OPERATOR DISSECTION carcinoma of right female breast AXILLARY LYMPHADENECTOMY Infiltrating duct 05/24 7:00 AM COMMUTATOR OPERATOR carcinoma of right female breast REARRANGEMENT OF ADJACENT Infiltrating duct 06/2021 7:00 AM COMMUTATOR OPERATOR TISSUE FOR REPAIR OF DEFECT carcinoma of right f emale OF TRUNK breast MASTOPEXY Infiltrating duct 05/24/2022 7:0 0 AM COMMUTATOR OPERATOR carcinoma of right female breast Health Maintenance Due Date Last Done Comments COVID-19 Vaccination (#1) 10/13/1960 Medical Devices Implanted Type Area Launch Check Out Device Shelf Model / Identifier Expiration Serial / Date Lot Candida Potts Issheila 8fr - [id number] Port Left: BARD PERIPHER AL 09/21/2022 [id number] / Implanted: Qty: 1 on 11/14/2021 at [facility] st VASCULAR [id number] / Wall [id number] Knee Replacement Description: right Procedures Procedure Name Priority Date/Time Associated Diagnosis Comme nts MANUAL DIFFERENTIAL Routine 03/06/2022 1:25 Infiltrating ducta l Results for this PM CDT carcinoma of central procedu re are in portion of right the results female breast section. Results CBC Routine 03/06/2022 1:25 Infiltrating ductal Resul ts for this PM CDT carcinoma of central procedu re are in portion of right the results female breast section. COMPLETE BLOOD COUNT W/ Routine 03/06/2022 1:25 Infiltrating d uctal DIFFERENTIAL PM CDT carcinoma of central portion of right female breast XR HUMERUS 2 VIEWS Routine 02/20/2022 1:25 Infiltrating duct R esults for this MINIMUM RIGHT PM CDT carcinoma of right procedur e are in female breast the results section. US ARM VENOUS DOPPLER Routine 02/20/2022 1:13 Infiltrating hoda t Results for this RIGHT PM CDT carcinoma of right procedure are in female breast the results section. .GLOMERULAR FILTRATION Routine 02/13/2022 1:[address] Results for this RATE PM CDT carcinoma of right procedure are in female breast the results section. SERUM CREATININE Routine 02/13/2022 1:00 Infiltrating duct Res ults for this PM CDT carcinoma of right procedure are in female breast the results section. MANUAL DIFFERENTIAL Routine 02/13/2022 1:00 Infiltrating duct Results for this PM CDT carcinoma of right procedure are in female breast the results section. Results CBC Routine 02/13/2022 1:00 Infiltrating duct Results for this PM CDT carcinoma of right procedure are in female breast the results section. BILIRUBIN TOTAL Routine 02/13/2022 1:00 Infiltrating duct Resu lts for this PM CDT carcinoma of right procedure are in female breast the results section. ALKALINE PHOSPHATASE Routine 02/13/2022 1:00 Infiltrating duct Results for this PM CDT carcinoma of right procedure are in female breast the results section. ALANINE Routine 02/13/2022 1:00 Infiltrating duct Results for this AMINOTRANSFERASE PM CDT carcinoma of right proce dure are in female breast the results section. ASPARTATE Routine 02/13/2022 1:00 Infiltrating duct Results for this AMINOTRANSFERASE PM CDT carcinoma of right proce dure are in female breast the results section. SERUM CREATININE Routine 02/13/2022 1:00 Infiltrating duct PM CDT carcinoma of right female breast BLOOD UREA NITROGEN Routine 02/13/2022 1:00 Infiltrating duct Results for this PM CDT carcinoma of right procedure are in female breast the results section. COMPLETE BLOOD COUNT W/ Routine 02/13/2022 1:00 Infiltrating d uct DIFFERENTIAL PM CDT carcinoma of right female breast US CHEST Routine 02/09/2022 9:54 Infiltrating duct Results for this AM CDT carcinoma of right procedure are in female breast the results section. US BREAST COMPLETE Routine 02/09/2022 9:54 Infiltrating duct R esults for this RIGHT AM CDT carcinoma of right procedure are in female breast the results section. MANUAL DIFFERENTIAL Routine 02/06/2022 2:16 Infiltrating duct Results for this PM CDT carcinoma of right procedure are in female breast the results section. Results CBC Routine 02/06/2022 2:16 Infiltrating duct Results for this PM CDT carcinoma of right procedure are in female breast the results section. COMPLETE BLOOD COUNT W/ Routine 02/06/2022 2:16 Infiltrating d uct DIFFERENTIAL PM CDT carcinoma of right female breast MANUAL DIFFERENTIAL Routine 01/30/2022 2:10 Infiltrating duct Results for this PM CDT carcinoma of right procedure are in female breast the results section. Results CBC Routine 01/30/2022 2:10 Infiltrating duct Results for this PM CDT carcinoma of right procedure are in female breast the results section. COMPLETE BLOOD COUNT W/ Routine 01/30/2022 2:10 Infiltrating d uct DIFFERENTIAL PM CDT carcinoma of right female breast MANUAL DIFFERENTIAL Routine 01/22/2022 10:43 Infiltrating duct Results for this AM CDT carcinoma of right procedure are in female breast the results section. Results CBC Routine 01/22/2022 10:43 Infiltrating duct Result s for this AM CDT carcinoma of right procedure are in female breast the results section. COMPLETE BLOOD COUNT W/ Routine 01/22/2022 10:43 Infiltrating duct DIFFERENTIAL AM CDT carcinoma of right female breast MANUAL DIFFERENTIAL Routine 01/15/2022 9:40 Infiltrating duct Results for this AM CDT carcinoma of right procedure are in female breast the results section. Results CBC Routine 01/15/2022 9:40 Infiltrating duct Results for this AM CDT carcinoma of right procedure are in female breast the results section. COMPLETE BLOOD COUNT W/ Routine 01/15/2022 9:40 Infiltrating d uct DIFFERENTIAL AM CDT carcinoma of right female breast MANUAL DIFFERENTIAL Routine 01/02/2022 1:18 Infiltrating duct Results for this PM CDT carcinoma of right procedure are in female breast the results section. Results CBC Routine 01/02/2022 1:18 Infiltrating duct Results for this PM CDT carcinoma of right procedure are in female breast the results section. COMPLETE BLOOD COUNT W/ Routine 01/02/2022 1:18 Infiltrating d uct DIFFERENTIAL PM CDT carcinoma of right female breast MANUAL DIFFERENTIAL Routine 12/26/2021 10:11 Infiltrating duct Results for this AM CDT carcinoma of right procedure are in female breast the results section. Results CBC Routine 12/26/2021 10:11 Infiltrating duct Result s for this AM CDT carcinoma of right procedure are in female breast the results section. BILIRUBIN TOTAL Routine 12/26/2021 10:11 Infiltrating duct Res ults for this AM CDT carcinoma of right procedure are in female breast the results section. ALKALINE PHOSPHATASE Routine 12/26/2021 10:11 Infiltrating hoda t Results for this AM CDT carcinoma of right procedure are in female breast the results section. ALANINE Routine 12/26/2021 10:11 Infiltrating duct Result s for this AMINOTRANSFERASE AM CDT carcinoma of right proce dure are in female breast the results section. ASPARTATE Routine 12/26/2021 10:11 Infiltrating duct Result s for this AMINOTRANSFERASE AM CDT carcinoma of right proce dure are in female breast the results section. COMPLETE BLOOD COUNT W/ Routine 12/26/2021 10:11 Infiltrating duct DIFFERENTIAL AM CDT carcinoma of right female breast MANUAL DIFFERENTIAL Routine 12/19/2021 12:56 Infiltrating duct Results for this PM CDT carcinoma of right procedure are in female breast the results section. Results CBC Routine 12/19/2021 12:56 Infil[address]ating duct Result s for this PM CDT carcinoma of right procedure are in female breast the results section. COMPLETE BLOOD COUNT W/ Routine 12/19/2021 12:56 Infil[address]ating duct DIFFERENTIAL PM CDT carcinoma of right female breast MANUAL DIFFERENTIAL Routine 12/12/2021 2:00 Infiltrating duct Results for this PM CDT carcinoma of right procedure are in female breast the results section. Results CBC Routine 12/12/2021 2:00 Infil[address]ating duct Results for this PM CDT carcinoma of right procedure are in female breast the results section. COMPLETE BLOOD COUNT W/ Routine 12/12/2021 2:00 Infiltrating d uct DIFFERENTIAL PM CDT carcinoma of right female breast MANUAL DIFFERENTIAL Routine 12/05/2021 10:35 Infiltrating duct Results for this AM CDT carcinoma of right procedure are in female breast the results section. Results CBC Routine 12/05/2021 10:35 Infiltrating duct Result s for this AM CDT carcinoma of right procedure are in female breast the results section. COMPLETE BLOOD COUNT W/ Routine 12/05/2021 10:35 Infiltrating duct DIFFERENTIAL AM CDT carcinoma of right female breast MANUAL DIFFERENTIAL Routine 11/28/2021 1:03 Infiltrating duct Results for this PM CDT carcinoma of right procedure are in female breast the results section. Results CBC Routine 11/28/2021 1:03 Infil[address]ating duct Results for this PM CDT carcinoma of right procedure are in female breast the results section. COMPLETE BLOOD COUNT W/ Routine 11/28/2021 1:03 Infiltrating d uct DIFFERENTIAL PM CDT carcinoma of right female breast MANUAL DIFFERENTIAL Routine 11/21/2021 8:07 Infil[address]ating duct Results for this AM CDT carcinoma of right procedure are in female breast the results section. Results CBC Routine 11/21/2021 8:07 Infil[address]ating duct Results for this AM CDT carcinoma of right procedure are in female breast the results section. COMPLETE BLOOD COUNT W/ Routine 11/21/2021 8:07 Infiltrating d uct DIFFERENTIAL AM CDT carcinoma of right female breast MANUAL DIFFERENTIAL Routine 11/14/2021 11:55 Infil[address]ating duct Results for this AM CDT carcinoma of right procedure are in female breast the results section. Results CBC Routine 11/14/2021 11:55 [address]fil[address]ating duct Result s for this AM CDT carcinoma of right procedure are in female breast the results section. BILIRUBIN TOTAL Routine 11/14/2021 11:55 Infil[address]ating duct Res ults for this AM CDT carcinoma of right procedure are in female breast the results section. ALKALINE PHOSPHATASE Routine 11/14/2021 11:55 Infiltrating hoda t Results for this AM CDT carcinoma of right procedure are in female breast the results section. ALANINE Routine 11/14/2021 11:55 [address]fil[address] duct Result s for this AMINOTRANSFERASE AM CDT carcinoma of right proce dure are in female breast the results section. ASPARTATE Routine 11/14/2021 11:55 Infiltrating duct Result s for this AMINOTRANSFERASE AM CDT carcinoma of right proce dure are in female breast the results section. COMPLETE BLOOD COUNT W/ Routine 11/14/2021 11:55 Infiltrating duct DIFFERENTIAL AM CDT carcinoma of right female breast IR FL PORT PLACEMENT Routine 11/14/2021 9:55 Infiltrating duct Results for this AM CDT carcinoma of right procedure are in female breast the results section. MRI ABDOMEN W WO Routine 11/10/2021 1:38 Infiltrating duct Res ults for this CONTRAST PM CDT carcinoma of right procedure are in female breast the results section. TMP INTERPRETATION Routine 11/10/2021 11:10 Resul ts for this ANTIBODY SCREEN AM CDT procedure ar e in NEGATIVE the results section. CLOT EXPIRATION DATE Routine 11/10/2021 11:10 Res ults for this AM CDT procedure are i n the results section. ANTIBODY SCREEN Routine 11/10/2021 11:10 Results for this AM CDT procedure are i n the results section. ABORH Routine 11/10/2021 11:10 Results for this AM CDT procedure are i n the results section. FRACTIONATED BILIRUBIN Routine 11/10/2021 11:10 Infiltrating d uct Results for this AM CDT carcinoma of right procedure are in female breast the results section. TOTAL PROTEIN Routine 11/10/2021 11:10 [address]ating duct Resul ts for this AM CDT carcinoma of right procedure are in female breast the results section. ASPARTATE Routine 11/10/2021 11:10 Infiltrating duct Result s for this AMINOTRANSFERASE AM CDT carcinoma of right proce dure are in female breast the results section. ALANINE Routine 11/10/2021 11:10 Infiltrating duct Result s for this AMINOTRANSFERASE AM CDT carcinoma of right proce dure are in female breast the results section. ALKALINE PHOSPHATASE Routine 11/10/2021 11:10 Infiltrating hoda t Results for this AM CDT carcinoma of right procedure are in female breast the results section. ALBUMIN LEVEL Routine 11/10/2021 11:10 In[address]ating duct Resul ts for this AM CDT carcinoma of right procedure are in female breast the results section. CALCIUM LEVEL TOTAL Routine 11/10/2021 11:10 [address]fil[address]ating duct Results for this AM CDT carcinoma of right procedure are in female breast the results section. .GLOMERULAR FILTRATION Routine 11/10/2021 11:10 Infiltrating d uct Results for this RATE AM CDT carcinoma of right procedure are in female breast the results section. SERUM CREATININE Routine 11/10/2021 11:[address] duct Re sults for this AM CDT carcinoma of right procedure are in female breast the results section. ELECTROLYTE PANEL Routine 11/10/2021 11:10 In[address]ating duct R esults for this AM CDT carcinoma of right procedure are in female breast the results section. BLOOD UREA NITROGEN Routine 11/10/2021 11:10 [address] duct Results for this AM CDT carcinoma of right procedure are in female breast the results section. MANUAL DIFFERENTIAL Routine 11/10/2021 11:10 In[address]ating duct Results for this AM CDT carcinoma of right procedure are in female breast the results section. Results CBC Routine 11/10/2021 11:10 Infil[address]ating duct Result s for this AM CDT carcinoma of right procedure are in female breast the results section. TYPE AND SCREEN Routine 11/10/2021 11:10 AM CDT GLUCOSE, RANDOM Routine 11/10/2021 11:10 Results for this AM CDT procedure are i n the results section. PROTHROMBIN TIME Routine 11/10/2021 11:10 Results for this AM CDT procedure are i n the results section. CANCER ANTIGEN 15-3 Routine 11/10/2021 11:10 [address] duct Results for this AM CDT carcinoma of right procedure are in female breast the results section. COMPREHENSIVE METABOLIC Routine 11/10/2021 11:10 Infil[address]ating duct PANEL AM CDT carcinoma of right female breast COMPLETE BLOOD COUNT W/ Routine 11/10/2021 11:10 Infil[address]ating duct DIFFERENTIAL AM CDT carcinoma of right female breast CONFIRM ABORH TYPE Routine 11/10/2021 11:06 Resul ts for this AM CDT procedure are i n the results section. COVID-19 (SARS-COV-2) Routine 11/10/2021 10:54 Suspicion Re sults for this PCR-ASYMPTOMATIC MC AM CDT procedur e are in the results section. ECHOCARDIOGRAM 2D Routine 11/03/2021 2:28 Infil[address]ating duct Re sults for this COMPLETE PM CDT carcinoma of right procedure are in female breast the results Shortness of maia ath section. Other chest pain Abnormal echocardiogram EKG, 12-LEAD Routine 11/03/2021 Shortness of breath (SCHEDULED) NM BONE SCAN WHOLE BODY Routine 11/02/2021 9:40 Infiltrating d uct Results for this AM CDT carcinoma of right procedure are in female breast the results section. CT CHEST ABDOMEN PELVIS Routine 11/02/2021 8:42 Infiltrating d uct Results for this W WO CONTRAST AM CDT carcinoma of right procedur e are in female breast the results section. POC CREATININE Routine 11/02/2021 7:27 Results fo r this AM CDT procedure are i n the results section. MAMMO POST PROCEDURE Routine 10/26/2021 1:50 [address] duct Results for this RIGHT PM CDT carcinoma of right procedure are in female breast the results section. US GUIDED AXILLARY CLIP Routine 10/26/2021 1:42 Infiltrating d uct Results for this PLACEMENT RIGHT PM CDT carcinoma of right proced ure are in female breast the results section. US GUIDED AXILLARY Routine 10/26/2021 1:42 Infil[address]ating duct R esults for this LYMPH NODE FNA RIGHT PM CDT carcinoma of right p rocedure are in female breast the results section. US HEAD NECK SOFT Routine 10/26/2021 1:42 [address] duct Re sults for this TISSUE PM CDT carcinoma of right procedure are in female breast the results section. US CHEST Routine 10/26/2021 1:42 [address] duct Results for this PM CDT carcinoma of right procedure are in female breast the results section. US BREAST COMPLETE Routine 10/26/2021 1:42 [address] duct R esults for this BILATERAL PM CDT carcinoma of right procedure are in female breast the results section. CYTOLOGY IMAGE-GUIDED Routine 10/26/2021 12:[address] Results for this FNA INTERPRETATION PM CDT carcinoma of right pro cedure are in female breast the results section. MAMMO DIGITAL Routine 10/26/2021 11:22 [address] duct Resul ts for this DIAGNOSTIC BILATERAL W AM CDT carcinoma of right procedure are in [place] female breast the results section. PATHOLOGY OUTSIDE Routine 10/03/2021 Results fo r this INTERPRETATION procedure are in the results section. OSI MAMMO BILATERAL Routine 09/06/2021 11:03 Cancer Resu lts for this AM CDT procedure are i n the results section. after 03/18/2021 Results (ABNORMAL) .CBC (03/06/2022 1:25 PM CDT)Only the most recent of15 resultswithin the time period is included. athologist Signature WBC 6.9 4.0 - 11.0 [facility] K/uL Comment: All components of the CBC perfo rmed at [facility], [address] [place] [address] RBC 3.45 (L) 4.00 - 5.50 M/uL [place] Comment: As part of CBC testing performe d at [facility], [address] [place] [address] Hgb 11.6 (L) 12.0 - 16.0 gm/dL [place] Comment: As part of CBC or as an individ ual orderable testing performed at [facility], [address] [place] [address] Hct 35.4 (L) 37.0 - 47.0 % [facility] Comment: As part of CBC or as an individ ual orderable testing performed at [facility], [address] [place] [address] MCV 103 (H) 82 - 98 fL [facility] Comment: As part of CBC testing performe d at [facility], [address] [place] [address] MCH 33.6 (H) 27.0 - 31.0 pg [facility] Comment: As part of CBC testing performe d at [facility], [address] [place] [address] MCHC 32.8 31.0 - 36.0 gm/dL [place] Comment: As part of CBC testing performe d at [facility], [address] [place] [address] RDW-SD 56.8 (H) 35.1 - 46.3 fL [place] Comment: As part of CBC testing performe d at [facility], [address] [place] [address] RDW-CV 15.5 12.0 - 15.5 % [place] Comment: As part of CBC testing performe d at [facility], [address] [place] [address] Platelet count 354 140 - 440 K/uL [place] Comment: As part of CBC or as an individ ual orderable testing performed at [facility], [address] [place] [address] MPV 8.6 4.0 - 10.4 fL [place] Comment: As part of CBC testing performe d at [facility], [address] [place] [address] Specimen Anatomical Collection Method Collection Time Receive d Time (Source) Location / / Volume Laterality Blood 03/06/2022 1:25 PM 1:25 CDT PM CDT Narrative [facility] [place] - 03/06/2022 1:33 PM CDT Within 72 hours prior to chemotherapy. Danisha Arias MD LAB BLOOD ORDERABLES Performing Organization Address City/State/ZIP Code Phon e Number [place] [address] (ABNORMAL) Differential (03/06/2022 1:25 PM CDT)Only the most recent of15 resultswithin the time period is included. athologist Signature Neutrophil % 53.0 42.0 - 66.0 [place] % Comment: All components of the Different ial performed at [facility], [address] [place] [address] Lymphocyte % 27.7 24.0 - 44.0 % [place] Comment: As part of Differential, testin g performed at [facility], [address] [place] [address] Monocyte % 18.6 (H) 2.0 - 7.0 % [place] Comment: As part of Differential, testin g performed at [facility], [address] [place] [address] Eosinophil % 0.3 (L) 1.0 - 4.0 % [place] Comment: As part of Differential, testin g performed at [facility], [address] [place] [address] Basophil % 0.4 0.0 - 1.0 % [facility] Comment: As part of Differential, testin g performed at [facility], [address] [place] [address] Neutrophil Abs 3.66 1.70 - 7.30 K/uL [place] [place] Comment: As part of Differential, testin g performed at [facility], [address] [place] [address] Lymphocyte Abs 1.92 1.00 - 4.80 K/uL [facility] Comment: As part of Differential, testin g performed at [facility], [address] [place] [address] Monocyte Abs 1.29 (H) 0.08 - 0.70 K/uL [place] Comment: As part of Differential, testin g performed at [facility], [address] [place] [address] Eosinophil Abs 0.02 (L) 0.04 - 0.40 K/uL [facility] Comment: As part of Differential, testin g performed at [facility], [address] [place] [address] Basophil Abs 0.03 0.00 - 0.10 K/uL [place] Comment: As part of Differential, testin g performed at [facility], [address] [place] [address] Specimen Anatomical Collection Method Collection Time Receive d Time (Source) Location / / Volume Laterality Blood 03/06/2022 1:25 PM 2 1:25 CDT PM CDT Narrative [facility] - 03/06/2022 1:33 PM CDT Within 72 hours prior to chemotherapy. Danisha Arias MD LAB BLOOD ORDERABLES Performing Organization Address City/State/ZIP Code Phon e Number [address] XR Humerus 2 Views Minimum Right (02/20/2022 1:25 PM CDT) Anatomical Region Laterality Modality Arm, Extremity Radio Fluoroscopy Specimen (Source) Anatomical Collection Method Collection Time Re ceived Time Location / / Volume Laterality 02/20/2022 1:30 PM CDT Impressions 02/20/2022 4:12 PM CDT 1. No acute fracture or evidence of metastatic disease. 2. Superior displacement of the felice l head with decreased acromiohumeral distance as may be seen in the setting of high-grade rotator cuff tear/injury. 3. Mild to moderate glenohumeral and a cromioclavicular joint osteoarthrosis. I personally reviewed these image(s) marco a hassan with the resident's/fellow's interpretations, certify that if a procedure was performed I was physically present, and agree with the final report. Narrative 02/20/2022 4:12 PM CDT FULL RESULT: Examination: XR HUMERUS 2 VIEWS MINIMUM RIGHT, 02/20/2022 1:25 PM. Clinical History: 66-year-old woman with right breast cancer Indication: right upper extremity pain Comparison: Whole-body bone scan 11/03/19 Technique: Lateral and AP radiographs of the humerus in internal and external rotation. Findings: High riding humerus, with superior displ acement of the humeral head with decreased acromiohumeral distance, likely indicative of hyaline grade rotator cuff tear. Mild to moderate osteoarthrosis of the a cromioclavicular and glenohumeral joints. No acute bone or acute joint abnormality is identified. There is no radiographic evidence of metastatic disease to bone. Procedure Note Geoff Beatty MD - 02/20/2022F ormatting of this note might be different from the original. FULL RESULT: Examination: XR HUMERUS 2 VIEWS MINIMUM RIGHT, 02/20/2022 1:25 PM. Clinical History: 66-year-old woman with right breast cancer Indication: right upper extremity pain Comparison: Whole-body bone scan 11/03/19 Technique: Lateral and AP radiographs of the humerus in internal and external rotation. Findings: High riding humerus, with superior displ acement of the humeral head with decreased acromiohumeral distance, likely indicative of hyaline grade rotator cuff tear. Mild to moderate osteoarthrosis of the a cromioclavicular and glenohumeral joints. No acute bone or acute joint abnormality is identified. There is no radiographic evidence of metastatic disease to bone. IMPRESSION: 1. No acute fracture or evidence of meta static disease. 2. Superior displacement of the humeral head with decreased acromiohumeral distance as may be seen in the setting of high-grade rotator cuff tear/injury. 3. Mild to moderate glenohumeral and acr omioclavicular joint osteoarthrosis. I personally reviewed these image(s) marco ajuan hassan with the resident's/fellow's interpretations, certify that if a procedure was performed I was physically present, and agree with the final report. Risa Sheriffel PA IMG DIAGNOSTIC IMAGING ORDER BUZZ US Arm Venous Doppler Right (02/20/2022 1:13 PM CDT) Anatomical Region Laterality Modality Arm, Extremity Ultrasound Specimen (Source) Anatomical Collection Method Collection Time Re ceived Time Location / / Volume Laterality 02/20/2022 1:45 PM CDT Impressions 02/20/2022 1:46 PM CDT Negative for deep venous thrombosis in t he right upper extremity. 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 Technique: Grayscale and color/spectral Doppler ultrasound of the right upper extremity veins was performed. Findings: The right internal jugular, subclavian, axillary, brachial, cephalic, and basilic veins show phasic color flow and are patent. 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 Technique: Grayscale and color/spectral Doppler ultrasound of the right upper extremity veins was performed. Findings: The right internal jugular, subclavian, axillary, brachial, cephalic, and basilic veins show phasic color flow and are patent. IMPRESSION: Negative for deep venous thrombosis in t he right upper extremity. Risa Trevino PA IMG US ORDERABLES (ABNORMAL) .Serum Creatinine (02/13/2022 1:00 PM CDT)Only the most recent of2 resultswithin the time period is included. athologist Signature Creatinine 0.99 (H) 0.51 - 0.95 [place] mg/dL Comment: Testing performed at [facility], [address] [place], [place] [id number] Specimen Anatomical Collection Method Collection Time Receive d Time (Source) Location / / Volume Laterality Blood 02/13/2022 1:00 PM 2 1:11 CDT PM CDT Narrative [facility] - 02/13/2022 1:40 PM CDT within 72 hours prior to the start of ch emotherapy infusion. Risa RENNER LAB BLOOD ORDERABLES Performing Organization Address City/State/ZIP Code Phon e Number [address] Glomerular Filtration Rate (02/13/2022 1:00 PM CDT)Only the most recent of2 resultswithin the time period is included. athologist Signature eGFR-AA 69 >=60 [place] mL/min/1.73 sq. m Comment: Normal eGFR >= 60 mL/min/1.73 m2 Note: The eGFR is calculated using the C KD-EPI equation. The eGFR declines with age. eGFR <60 mL/min/1.73 m2 is considered as "decreased". This equation should only be used for patients 18 and older. According to the National [employer]'s Kidney Disease Outcome Quality Initiative (KDOQI) classification and 2012 Kidney Disease Improving Global Outcomes (KDIGO) Clinical Practice Guideline, the stage of CKD should be categorized based on estimated GFR. Stage Description GFR mL/min/1. 73 m2 1 Normal or high GFR >=90 2 Mildly decreased GFR 60-89 3a Mildly to moderately decreased GFR 45-59 3b Moderately to severely decreased GFR 30-44 4 Severely decreased GFR 15-29 5 Kidney failure <15 [facility], [address] [place] [address], [place] [address] eGFR-KAVEH 60 >=60 mL/min/1.73 sq. m [facility] Comment: Normal eGFR >= 60 mL/min/1.73 m2 Note: The eGFR is calculated using the C KD-EPI equation. The eGFR declines with age. eGFR <60 mL/min/1.73 m2 is considered as "decreased". This equation should only be used for patients 18 and older. According to the National [employer] ion's Kidney Disease Outcome Quality Initiative (KDOQI) classification and 2012 Kidney Disease Improving Global Outcomes (KDIGO) Clinical Practice Guideline, the stage of CKD should be categorized based on estimated GFR. Stage Description GFR mL/min/1. 73 m2 1 Normal or high GFR >=90 2 Mildly decreased GFR 60-89 3a Mildly to moderately decreased GFR 45-59 3b Moderately to severely decreased GFR 30-44 4 Severely decreased GFR 15-29 5 Kidney failure <[address] [facility], [address] [place] [place] [id number] Specimen Anatomical Collection Method Collection Time Receive d Time (Source) Location / / Volume Laterality Blood 02/13/2022 1:00 PM 2 1:11 CDT PM CDT Narrative [facility] - 02/13/2022 1:41 PM CDT within 72 hours prior to the start of ch emotherapy infusion. Risa RENNER LAB BLOOD ORDERABLES Performing Organization Address City/State/[place] [address] [place] [address] BUN (02/13/2022 1:00 PM CDT)Only the most recent of2 resultswithin the time period is included. athologist Signature BUN 12 6 - 23 mg/dL [facility] Comment: Testing performed at [facility], [address] [place] [place] [address] Specimen Anatomical Collection Method Collection Time Receive d Time (Source) Location / / Volume Laterality Blood 02/13/2022 1:00 PM 2 1:11 CDT PM CDT Narrative [facility] - 02/13/2022 1:40 PM CDT within 72 hours prior to the start of ch emotherapy infusion. Risa RENNER LAB BLOOD ORDERABLES Performing Organization Address City/State/[place] [address] [place] [address] ALT (02/13/2022 1:00 PM CDT)Only the most recent of4 resultswithin the time period is included. athologist Signature ALT 9 <=33 U/L [place] Comment: Testing performed at [facility], [address] [place] [address] Specimen Anatomical Collection Method Collection Time Receive d Time (Source) Location / / Volume Laterality Blood 02/13/2022 1:00 PM 2 1:11 CDT PM CDT Risa B Trevino PA LAB BLOOD ORDERABLES Performing Organization Address City/[facility]/ZIP Code Phon e Number [place] [phone] [place] [address] AST (02/13/2022 1:00 PM CDT)Only the most recent of4 resultswithin the time period is included. athologist Signature AST 15 <=32 U/L [place] Comment: Testing performed at [facility], [address] [place], [place] [address] Specimen Anatomical Collection Method Collection Time Receive d Time (Source) Location / / Volume Laterality Blood 02/13/2022 1:00 PM 2 1:11 CDT PM CDT Risa B Trevino PA LAB BLOOD ORDERABLES Performing Organization Address City/[facility]/ZIP Code Phon e Number [place] [phone] [place] [address] Alkaline phosphatase (02/13/2022 1:00 PM CDT)Only the most recent of4 results within the time period is included. athologist Signature Alk Phos 53 35 - 104 U/L [place] Comment: Testing performed at [facility], [address] [place], [place] [address] Specimen Anatomical Collection Method Collection Time Receive d Time (Source) Location / / Volume Laterality Blood 02/13/2022 1:00 PM 2 1:11 CDT PM CDT Risa B Trevino PA LAB BLOOD ORDERABLES Performing Organization Address City/[facility]/ZIP Code Phon e Number [address] Bilirubin, total (02/13/2022 1:00 PM CDT)Only the most recent of3 resultswithin the time period is included. P athologist Signature Bili Total 0.5 <=1.2 mg/dL [place] Comment: Indocyanine Green (ICG) may cause falsel y elevated bilirubin results. Total and direct bilirubin must not be measured from samples containing indocyanine green. False elevation of total bilirubin can b e seen in patients with IgG concentrations above 28 g/L. Testing performed at [facility], [address] [place] [id number] Specimen Anatomical Collection Method Collection Time Receive d Time (Source) Location / / Volume Laterality Blood 02/13/2022 1:00 PM 1:11 CDT PM CDT Risa RENNER LAB BLOOD ORDERABLES Performing Organization Address City/State/[place] [address] [place] [address] (ABNORMAL) US Chest for Breast Ultrasound (Add-on Only) (02/09/2022 9:54 AM CDT) Only the most recent of2 resultswithin the time period is included. Anatomical Region Laterality Modality Chest Ultrasound Specimen (Source) Anatomical Collection Method Collection Time Re ceived Time Location / / Volume Laterality 02/09/2022 10:03 AM CDT Impressions 02/09/2022 10:03 AM CDT Partial interval response to therapy as detailed above. Recommend appropriate evaluation and aure atment of this known malignancy. BI-RADS Category 6: Known Biopsy Proven Malignancy Narrative 02/09/2022 10:03 AM CDT CLINICAL INDICATION: Patient is a 66 year old female and is s een for breast cancer FILMS COMPARED The present examination has been compare d to a prior imaging study performed at [facility] on 10/26/2021. Images were obtained in multiple scannin g planes. Real-time sonographic imaging of the rig ht breast (including all 4 quadrants and retroareolar region) was performed. Re al-time sonographic imaging of the right regional eddy basins including ultrasou nd of the chest/mediastinum to evaluate the axillary (level I,II,III) and financial services internship al mammary regions was performed. The known malignancy is identified in th e central retroareolar region as an irregular, hypoechoic mass with in situ clip measuring 2.7 x 2.0 x 1.6 cm, previously 3.2 x 3 x 2.7 cm. There is persistent nipple retraction. There are no new suspicious sonographic findings i n the right breast. The known metastatic axillary level 1 ly mph node is also decreased in size measuring 2.3 x 1.7 x 0.7 cm with in sit u clip and persistent focal cortical thickening. Previously, this measured 2.7 x 1.6 x 1.4 cm. A total of 2 abnormal level 1 lymph nodes are identif ied. There is no additional axillary (level 2 3) or internal mammary lymphadenopathy. Procedure Note Claus Sanders MD - 02/09/2022Formatti ng of this note might be different from the original. CLINICAL INDICATION: Patient is a 66 year old female and is s een for breast cancer FILMS COMPARED The present examination has been compare d to a prior imaging study performed at [facility] on 10/26/2021. Images were obtained in multiple scannin g planes. Real-time sonographic imaging of the rig ht breast (including all 4 quadrants and retroareolar region) was performed. Real -time sonographic imaging of the right regional eddy basins including ultrasou nd of the chest/mediastinum to evaluate the axillary (level I,II,III) and financial services internship al mammary regions was performed. The known malignancy is identified in th e central retroareolar region as an irregular, hypoechoic mass with in situ clip measuring 2.7 x 2.0 x 1.6 cm, previously 3.2 x 3 x 2.7 cm. There is pe rsistent nipple retraction. There are no new suspicious sonographic findings i n the right breast. The known metastatic axillary level 1 ly mph node is also decreased in size measuring 2.3 x 1.7 x 0.7 cm with in sit u clip and persistent focal cortical thickening. Previously, this measured 2. 7 x 1.6 x 1.4 cm. A total of 2 abnormal level 1 lymph nodes are identif ied. There is no additional axillary (level 2 3) or internal mammary lymphadenopathy. IMPRESSION: Partial interval response to therapy as detailed above. Recommend appropriate evaluation and aure atment of this known malignancy. BI-RADS Category 6: Known Biopsy Proven Malignancy Chelsie Alan-Navarrete PA IMRoni US ORDERABLES (ABNORMAL) US Breast Complete Right (02/09/2022 9:54 AM CDT) Anatomical Region Laterality Modality Breast Right Ultrasound Specimen (Source) Anatomical Collection Method Collection Time Re ceived Time Location / / Volume Laterality 02/09/2022 10:03 AM CDT Impressions 02/09/2022 10:03 AM CDT Partial interval response to therapy as detailed above. Recommend appropriate evaluation and aure atment of this known malignancy. BI-RADS Category 6: Known Biopsy Proven Malignancy Narrative 02/09/2022 10:03 AM CDT CLINICAL INDICATION: Patient is a 66 year old female and is s een for breast cancer FILMS COMPARED The present examination has been compare d to a prior imaging study performed at [facility] on 10/26/2021. Images were obtained in multiple scannin g planes. Real-time sonographic imaging of the rig ht breast (including all 4 quadrants and retroareolar region) was performed. Re al-time sonographic imaging of the right regional eddy basins including ultrasou nd of the chest/mediastinum to evaluate the axillary (level I,II,III) and financial services internship al mammary regions was performed. The known malignancy is identified in th e central retroareolar region as an irregular, hypoechoic mass with in situ clip measuring 2.7 x 2.0 x 1.6 cm, previously 3.2 x 3 x 2.7 cm. There is persistent nipple retraction. There are no new suspicious sonographic findings i n the right breast. The known metastatic axillary level 1 ly mph node is also decreased in size measuring 2.3 x 1.7 x 0.7 cm with in sit u clip and persistent focal cortical thickening. Previously, this measured 2.7 x 1.6 x 1.4 cm. A total of 2 abnormal level 1 lymph nodes are identif ied. There is no additional axillary (level 2 3) or internal mammary lymphadenopathy. Procedure Note Claus Sanders MD - 02/09/2022Formatti ng of this note might be different from the original. CLINICAL INDICATION: Patient is a 66 year old female and is s een for breast cancer FILMS COMPARED The present examination has been compare d to a prior imaging study performed at [facility] on 10/26/2021. Images were obtained in multiple scannin g planes. Real-time sonographic imaging of the rig ht breast (including all 4 quadrants and retroareolar region) was performed. Real -time sonographic imaging of the right regional eddy basins including ultrasou nd of the chest/mediastinum to evaluate the axillary (level I,II,III) and financial services internship al mammary regions was performed. The known malignancy is identified in th e central retroareolar region as an irregular, hypoechoic mass with in situ clip measuring 2.7 x 2.0 x 1.6 cm, previously 3.2 x 3 x 2.7 cm. There is pe rsistent nipple retraction. There are no new suspicious sonographic findings i n the right breast. The known metastatic axillary level 1 ly mph node is also decreased in size measuring 2.3 x 1.7 x 0.7 cm with in sit u clip and persistent focal cortical thickening. Previously, this measured 2. 7 x 1.6 x 1.4 cm. A total of 2 abnormal level 1 lymph nodes are identif ied. There is no additional axillary (level 2 3) or internal mammary lymphadenopathy. IMPRESSION: Partial interval response to therapy as detailed above. Recommend appropriate evaluation and aure atment of this known malignancy. BI-RADS Category 6: Known Biopsy Proven Malignancy Chelsie RENNER IMG US ORDERABLES IR FL PORT PLACEMENT (11/14/2021 9:55 AM CDT) Anatomical Region Laterality Modality X-Ray Angiography, U ltrasound Specimen (Source) Anatomical Location Collection Method / Collectio n Time Received Time / Laterality Volume Narrative 11/14/2021 12:36 PM CDT Date of Procedure: 11/14/21 Attending Physician: Max Woodward MD Oil Expeller Operator: Nazia Boudreaux Pre-procedure Diagnosis: Breast cancer Post-procedure Diagnosis: Unchanged Indication: Chemotherapy administration Title of Procedure: Left IJ power-injectable chest port plac ement. Port: Bard PowerPort Clearvue ISP Implantable Port Catheter size: 8F Operative Findings: Successful percutaneous image-guided pow er-injectable chest port placement in the left internal jugular vein. Consent: The procedure, risks, indicatio ns and alternatives were explained. All questions were answered and informed consent was obtained. I have reviewed the history and physical dictated by the mid-level practitioner / fellow. Sedation/Anesthesia: Moderate sedation for pain control and a nxiety was administered by a dedicated nurse under my supervision. There was continuous monitoring of oxygen saturation, heart rate and interm ittent monitoring of blood pressure during the procedure. Medicat ion given was midazolam and fentanyl. I was present for the admin istration of the medications indicated above. Procedure Events Event Event Time Sedation Start 11/14/2021 8:36 AM Sedation End 11/14/2021 9:37 AM Insertion site prepped with: Chlorhexadi ne gluconate Procedure in Detail: A time out was performed prior to the st art of the procedure and the correct patient, procedure, presence of consent, site, and side were confirmed with all members of the team. Insertion site was prepped and cleaned with aseptic technique. Sterile devices and equipment were used. Doors were closed and traffic kept to a minimum during the procedure. Skin prep agent was allowed to dry prior to p rocedure. Maximum sterile barriers were used including sterile gloves, gown , cap, mask and head to toe sterile cover. Hand hygiene was performe d prior to insertion by all persons performing/assisting with proced ure. Ultrasound evaluation of the access site demonstrated a patent and compressible vein. Lidocaine 1% was us ed for local anesthesia. Under ultrasound imaging guidance, a 21 gauge needle was advanced into the left internal jugular vein and the access sit e was scaled up to accept a micropuncture transitional dilator. An image was obtained and placed into the medical record. A wire was advanced into the inferior ve na cava under fluoroscopic guidance to secure access. An appropri ate site within the upper chest was determined and an incision was created. A subcutaneous pocket below the incision site was created. The subcuta neous tunnel was then created in the upper chest and the port catheter wa s advanced through the tunnel. The venous access site was scaled up to accept a peel-away sheath. The catheter was then advanced through the s anne, with the tip of the catheter in a satisfactory position at t he SVC/atrial junction on fluoroscopy. The catheter was connected to the hub of the chest port. The chest port hub was placed within the sub cutaneous pocket. Venous access incision closed with Dermabond. The port pocket incision was closed as below. Port pocket closure: The incision was approximated with multi ple subdermal sutures. Dermabond was applied to the incision sites. Additional Comments: None Estimated Blood Loss: Minimal Specimens Removed: No Disposition: PACU Plan: Port Catheter positioning was confirm ed with a fluoroscopic image at the conclusion of the procedure. Tip of th e catheter lies at the SVC/RA junction. The port is now ready for im mediate use. Patient will be contacted in 1-2 week s for a post port placement incision check. I certify my physical presence at the ti me of the procedure. I personally reviewed the image(s) and the LUDA's inte rpretation and agree with the written report. Risa RENNER IMG IR ORDERABLES MRI Abdomen with and without Contrast (11/10/2021 1:38 PM CDT) Anatomical Region Laterality Modality Abdomen Magnetic Resonance Specimen (Source) Anatomical Collection Method Collection Time Re ceived Time Location / / Volume Laterality 11/13/2021 8:48 AM CDT Impressions 11/13/2021 1:49 PM CDT 1. Mild nodularity of the left adrenal gland without focal mass lesion. Normal right adrenal gland. 2. 0.7 cm hepatic segment 4 simple cys t corresponding to hypodensity identified on comparison CT. 3. No other evidence of malignancy in the abdomen. 4. Primary neoplasm is noted within the right breast. There is associated right axillary adenopathy representing metastatic disease. I personally reviewed these image(s) marco a hassan with the resident's/fellow's interpretations, certify that if a procedure was performed I was physically present, and agree with the final report. Narrative 11/13/2021 1:49 PM CDT Examination: MRI ABDOMEN W WO CONTRAST o n 11/10/2021 1:38 PM. Clinical History: 66-year-old woman with breast cancer. CT CAP on 11/02 showed hypodensity in liver and possible adrenal adenomata requiring further imaging with MRI. ADRENAL PROTOCOL.. Indication: Further evaluation of hepati c lesion seen on recent CT Comparison: CT chest abdomen pelvis 11/02 Technique: Multiplanar multisequence MRI of the abdomen was performed without and with contrast per departmental adrenal protocol using Gadavist. Findings: Lower thorax: Lung bases are clear. Liver: Segment 4 0.7 cm nonenhancing T2 hyperintense lesion consistent with simple cyst. No enhancing or otherwise suspicious hepatic lesions. Gallbladder and bile ducts: Sludge layer s dependently. Otherwise normal gallbladder. No biliary ductal dilatation. Pancreas: Normal. Spleen: Normal. Adrenals: * Left: While the left adrenal gland h as a mildly nodular appearance, most notably to the inferior lateral aspect (series 4 images 24 through 27), there is no focal abnormal enhancement, washout, or signal dropout on out of phase imaging. * Right: Normal. No conspicuous nodule s. Kidneys and ureters: Normal. No hydronep hrosis, cysts or enhancing lesions. Gastrointestinal tract: No evidence of o bstruction. Peritoneum and retroperitoneum: Bones and soft tissues: Benign-appeari ng thoracic perineural cysts noted (series 7 images 6, 17). A mass is noted within the right breast (sequence 6 image 18) measures 3.1 x 3.1 cm. There is right axillary adenopathy (sequence 4 image 2) measures 1.8 x 1.4 cm. Procedure Note Vanessa Spencer MD - 11/13/2021F ormatting of this note might be different from the original. Examination: MRI ABDOMEN W WO CONTRAST o n 11/10/2021 1:38 PM. Clinical History: 66-year-old woman with breast cancer. CT CAP on 11/02 showed hypodensity in liver and possible adrenal adenomata requiring further imaging with MRI. ADRENAL PROTOCOL.. Indication: Further evaluation of hepati c lesion seen on recent CT Comparison: CT chest abdomen pelvis 11/02 Technique: Multiplanar multisequence MRI of the abdomen was performed without and with contrast per departmental adrenal protocol using Gadavist. Findings: Lower thorax: Lung bases are clear. Liver: Segment 4 0.7 cm nonenhancing T2 hyperintense lesion consistent with simple cyst. No enhancing or otherwise suspicious hepatic lesions. Gallbladder and bile ducts: Sludge layer s dependently. Otherwise normal gallbladder. No biliary ductal dilatation. Pancreas: Normal. Spleen: Normal. Adrenals: * Left: While the left adrenal gland has a mildly nodular appearance, most notably to the inferior lateral aspect (series 4 images 24 through 27), there is no focal abnormal enhancement, washout, or signal dropout on out of phase imaging. * Right: Normal. No conspicuous nodules. Kidneys and ureters: Normal. No hydronep hrosis, cysts or enhancing lesions. Gastrointestinal tract: No evidence of o bstruction. Peritoneum and retroperitoneum: Bones and soft tissues: Benign-appearing thoracic perineural cysts noted (series 7 images 6, 17). A mass is noted within the right breast (sequence 6 image 18) measures 3.1 x 3.1 cm. There is right axillary adenopathy (sequence 4 image 2) measures 1.8 x 1.4 cm. IMPRESSION: 1. Mild nodularity of the left adrenal g land without focal mass lesion. Normal right adrenal gland. 2. 0.7 cm hepatic segment 4 simple cyst corresponding to hypodensity identified on comparison CT. 3. No other evidence of malignancy in th e abdomen. 4. Primary neoplasm is noted within the right breast. There is associated right axillary adenopathy representing metastatic disease. I personally reviewed these image(s) marco a ng with the resident's/fellow's interpretations, certify that if a procedure was performed I was physically present, and agree with the final report. Risa RENNER IMG MRI ORDERABLES Glucose, Random (11/10/2021 11:10 AM CDT) athologist Signature Glucose Random 96 70 - 199 [place] mg/dL Comment: Effective 01/18/16, the glucose reference intervals have been updated based on [place] [employer] guidelines (Standards of Medical Care in Diabetes 2016. Diabetes Care 2016; 39: S13-S22) Fasting blood glucose: Normal: 70-99 mg/dL Impaired fasting glucose (increased risk for diabetes or pre-diabetes): 100-125 mg/dL Diabetes mellitus: >/= 126 mg/dL Random blood glucose: Normal: 70-199 mg/dL Note: Random glucose >100 mg/dL is assoc iated with increased risk for diabetes Testing performed at [facility], [address] [place] [address] Specimen Anatomical Collection Method Collection Time Receive d Time (Source) Location / / Volume Laterality Blood 11/10/2021 11:10 11/10/2021 AM CDT 11:11 AM CDT Nazia RENNER LAB BLOOD ORDERABLES Performing Organization Address City/State/ZIP Code Phon e Number [facility] [place] [address] [place] [address] Clot Expiration Date (11/10/2021 11:10 AM CDT) Patholo gist Method Time Signature T & S 11/13/2021 [facility] Specimen Anatomical Collection Method Collection Time Receive d Time (Source) Location / / Volume Laterality Blood 11/10/2021 11:10 11/10/2021 8:08 AM CDT PM CDT Nazia RENNER BLOOD BANK TEST ORDERABLES Performing Organization Address City/State/ZIP Code Phon e Number [facility] Unless otherwise noted, [place] [address] [place] all lab tests performed by: Division of Pathology and Laboratory Medicine [facility] Fractionated Bilirubin (11/10/2021 11:10 AM CDT) P athologist Signature Bili Total 0.5 <=1.2 mg/dL [place] Comment: Indocyanine Green (ICG) may cause falsel y elevated bilirubin results. Total and direct bilirubin must not be measured from samples containing indocyanine green. False elevation of total bilirubin can b e seen in patients with IgG concentrations above 28 g/L. Testing performed at [facility], [address] [place] [address] Bili Direct <0.2 <=0.3 mg/dL [place] Comment: Indocyanine Green (ICG) may cause falsel y elevated bilirubin results. Total and direct bilirubin must not be measured from samples containing indocyanine green. Testing performed at [facility], [address] [place] [address] Bili Indirect See Note 0.0 - 0.9 mg/dL [facility] Comment: Testing performed at [facility], [address] [place] [id number] Unable to calculate Indirect Bilirubin r esult due to some parameters are outside reportable range Specimen Anatomical Collection Method Collection Time Receive d Time (Source) Location / / Volume Laterality Blood 11/10/2021 11:10 11/10/2021 AM CDT 11:11 AM CDT Risa RENNER LAB BLOOD ORDERABLES Performing Organization Address City/State/ZIP Code Phon e Number [place], [place] [id number] [place] [address] TMP Interpretation Antibody Screen Negative (11/10/2021 11:10 AM CDT) Patholo gist Method Time Signature TMP Auto Neg At the [place] MD AVILEZ Inter[facility] time, [facility] patient plasma shows no evidence of RBC alloantibodi es. Comment: BARRETT LITTLE MD, PhD - [id number] Dictated by: BARRETT LITTLE MD, Ph D - [id number] Dictated Date/Time: 11.11.2021 7:09 AM C DT Transcribed Date/Time: 11.11.2021 7:09 AM CDT Electronically Signed By: BARRETT LITTLE MD, PhD - [id number] on 11.11.2021 7:09 AM C Specimen Anatomical Collection Method Collection Time Receive d Time (Source) Location / / Volume Laterality Blood 11/10/2021 11:10 11/10/2021 8:08 AM CDT PM CDT Nazia RENNER BLOOD BANK TEST ORDERABLES Performing Organization Address City/State/ZIP Code Phon e Number [facility] Unless otherwise noted, [place] [address] CENTER all lab tests performed by: Division of Pathology and Laboratory Medicine [address] (ABNORMAL) CA 15-3 (11/10/2021 11:10 AM CDT) P athologist Signature CA 15-3 67.4 (H) <=25.0 U/mL [place] Comment: Results greater than 2400 U/L may not be reliable due to matrix effect with extended dilution as it exceeds the mergers and acquisitions associate s recommended limit. Caution should be exercised when interpreting such kris ues and done in conjunction with clinica l context. This test is measured by electrochemilum inescence immunoassay on [employer] George immunoassay analyzers. Results obtained in different methods are not interchangeable. Testing performed at [facility], [address] [place] [address], [place] [address] Specimen Anatomical Collection Method Collection Time Receive d Time (Source) Location / / Volume Laterality Blood 11/10/2021 11:10 11/10/2021 AM CDT 11:11 AM CDT Risa RENNER LAB BLOOD ORDERABLES Performing Organization Address City/State/ZIP Code Phon e Number [place], [place] [phone] [place] [address] ABORh (11/10/2021 11:10 AM CDT) athologist Signature ABORh. O POS [facility] Specimen Anatomical Collection Method Collection Time Receive d Time (Source) Location / / Volume Laterality Blood 11/10/2021 11:10 11/10/2021 8:08 AM CDT PM CDT Nazia RENNER BLOOD BANK TEST ORDERABLES Performing Organization Address City/[facility]/ZIP Code Phon e Number [facility] Unless otherwise noted, [place] [address] [place] all lab tests performed by: Division of Pathology and Laboratory Medicine [address] [facility] Prothrombin Time with INR (11/10/2021 11:10 AM CDT) athologist [facility] PT 12.6 11.5 - 13.9 [place] second(s) Comment: Testing performed at [facility], [address] [place] [id number] INR 0.97 0.90 - 1.10 [place] Comment: Testing performed at [facility], [address] [place] [address] Specimen Anatomical Collection Method Collection Time Receive d Time (Source) Location / / Volume Laterality Blood 11/10/2021 11:10 11/10/2021 AM CDT 11:11 AM CDT Narrative [place] - 11/10/2021 11:46 AM CDT This lab cannot be scheduled at the [facility] locations due to collection/proccessing restrictions: [facility] and [facility]. Sylvester RENNER LAB BLOOD ORDERABLES Performing Organization Address City/State/ZIP Code Phon e Number [place], [place] [phone] [place] [address] Antibody Screen (11/10/2021 11:10 AM CDT) athologist Signature ABSC. Negative ABSC [facility] Specimen Anatomical Collection Method Collection Time Receive d Time (Source) Location / / Volume Laterality Blood 11/10/2021 11:10 11/10/2021 8:08 AM CDT PM CDT Nazia RENNER BLOOD BANK TEST ORDERABLES Performing Organization Address City/State/ZIP Code Phon e Number [facility] Unless otherwise noted, [place] [address] CENTER all lab tests performed by: Division of Pathology and Laboratory Medicine [address] Total Protein (11/10/2021 11:10 AM CDT) athologist Signature Total Protein 7.5 6.4 - 8.3 [place] g/dL Comment: Testing performed at [facility], [address] [place] [address] Specimen Anatomical Collection Method Collection Time Receive d Time (Source) Location / / Volume Laterality Blood 11/10/2021 11:10 11/10/2021 AM CDT 11:11 AM CDT Risa RENNER LAB BLOOD ORDERABLES Performing Organization Address City/[facility]/ZIP Code Phon e Number [address] Calcium Level (11/10/2021 11:10 AM CDT) athologist [facility] Calcium Lvl 9.1 8.4 - 10.2 [place] mg/dL Comment: Testing performed at [facility], [address] [place] [address] Specimen Anatomical Collection Method Collection Time Receive d Time (Source) Location / / Volume Laterality Blood 11/10/2021 11:10 11/10/2021 AM CDT 11:11 AM CDT Risa RENNER LAB BLOOD ORDERABLES Performing Organization Address City/State/ZIP Code Phon e Number [address] Albumin Level (11/10/2021 11:10 AM CDT) athologist Signature Albumin Lvl 4.2 3.5 - 5.2 [place] gm/dL Comment: Testing performed at [facility], [address] [place] [id number] Specimen Anatomical Collection Method Collection Time Receive d Time (Source) Location / / Volume Laterality Blood 11/10/2021 11:10 11/10/2021 AM CDT 11:11 AM CDT Risa RENNER LAB BLOOD ORDERABLES Performing Organization Address City/State/ZIP Code Phon e Number [place], [place] [id number] [place] [address] Electrolyte Panel (11/10/2021 11:10 AM CDT) P athologist Signature Sodium Lvl 140 136 - 145 [place] mEq/L Comment: Testing performed at [facility], [address] [place] [address] Potassium Lvl 3.8 3.5 - 5.1 mEq/L [facility] CIT Y Comment: Testing performed at [facility], [address] [place] [address] Chloride 102 98 - 107 mEq/L [place] Comment: Testing performed at [facility], [address] [place] [address] CO2 28 22 - 29 mEq/L [place] Comment: Testing performed at [facility], [address] [place] [address] Anion Gap 10 4 - 14 mEq/L [place] Comment: Testing performed at [facility], [address] [place] [address] Specimen Anatomical Collection Method Collection Time Receive d Time (Source) Location / / Volume Laterality Blood 11/10/2021 11:10 11/10/2021 AM CDT 11:11 AM CDT Risa RENNER LAB BLOOD ORDERABLES Performing Organization Address City/State/ZIP Code Phon e Number [place], [place] [id number] [place] [address] Confirm ABORh (11/10/2021 11:06 AM CDT) P athologist Signature ABORh Confirm. O POS [facility] Specimen Anatomical Collection Method Collection Time Receive d Time (Source) Location / / Volume Laterality Blood 11/10/2021 11:06 11/10/2021 8:08 AM CDT PM CDT Risa RENNER BLOOD BANK TEST ORDERABLES Performing Organization Address City/State/ZIP Code Phon e Number [facility] Unless otherwise noted, [place] [address] CENTER all lab tests performed by: Division of Pathology and Laboratory Medicine [address] COVID-19 (SARS-CoV-2) PCR-Asymptomatic (11/10/2021 10:54 AM CDT) [facility] Method Time Signature COVID19 (SARS Not Detected Not Detected [place] CoV-2) [facility] Comment: This test is a qualitative reverse-trans criptase polymerase chain reaction (RT- PCR) developed for the [employer] Viralica0 system and intended for qualitative detection of SARS CoV-2 RNA in nasopharyngeal a nd oropharyngeal swab specimens collecte d from any individuals, including those suspected o f COVID-19 by their healthcare provider, and those without symptoms or other reasons to suspect COVID-19. A fact sheet for patients provided by the mergers and acquisitions associate ( [employer]) can be rev iewed at: https://www.fda.gov/media/919214/downloa d. A fact sheet for Health Care providers is provided by the mergers and acquisitions associate ([employer]) and can be reviewed at: https://www.fda.gov/media/100119/download Results must be interpreted within the c ontext of all relevant clinical and laboratory findings and should not form the sole basis for a diagnosis or treatment decision. Positive results do not rule out bacterial infection or co- infection with other viruses. Negative results do not rule ou t SARS-CoV-2 and must be combined with clinical observations, patient history, and/or epidemiological information. "Presumptive Positive" results are due t o partial amplification of SARS-CoV-2 targets and indicates low amounts of virus present in the specimen at or near the limit of detection. Regardless, individuals with "Presumptive Positive" results should be managed per institutional guidelines as individuals positive for SARS-CoV-2 virus, including use of appropriate infection control protocols. Internal controls are included to assess for possible amplification inhibitors. If inhibition is detected, testing is repeated and if inhibition is confirmed the specimen is resulted as "Invalid". When an "Invalid" result occurs, it is recomm ended to wait 3 days before submitting a new spec imen for testing if clinically indicated. This assay has been approved by the FDA for use only under Emergency Use Authorization (EUA) in laboratories that have been CLIA-certified to perform moderate-complexity and high-complexity tests. The performance characteristics of this assay were verified by the Microbiology Laboratory at [facility], CLIA Accreditation #: [id number] and CAP Accreditation #: [id number]. COVID19 SARS Source SAIL CUTTER Swab [place] [facility] COVID19 SARS Indication Pre-OR Procedure [facility] Specimen (Source) Anatomical Collection Method Collection Time Re ceived Time Location / / Volume Laterality Nasopharyngeal Swab 11/10/2021 10:54 10/23 AM CDT 12:47 PM CDT Nazia RENNER MICROBIOLOGY - GENERAL ORDER BUZZ Performing Organization Address City/State/ZIP Code Phon e Number [facility] Unless otherwise noted, [place] [address] [place] all lab tests performed by: Division of Pathology and Laboratory Medicine [address] [place] [address] Echocardiogram 2D Complete (11/03/2021 2:28 PM CDT) Specimen (Source) Anatomical Collection Method Collection Time Re ceived Time Location / / Volume Laterality 11/03/2021 2:09 PM CDT Narrative ISCV - 11/03/2021 5:37 PM CDT Echocardiographic Report Interpretation Summary A complete two-dimensional transthoracic echocardiogram was performed (2D, M- mode, Spectral and color Doppler). There is no comparison study available. Normal left ventricular size and systoli c function. LV ejection fraction (LVEF) is in the ra nge of 60% (calculated by method of discs). The right ventricle is normal in size an d function. There is no pericardial effusion. Left Ventricle: Normal left ventricular size and systoli c function. There is no thrombus. There is normal left ventricular wall thickness. Sigmoidal septal shape noted. LV ejection fraction (LVEF) is in the range of 60 % (calculated by method of discs). No re gional wall motion abnormalities noted. I WMSI = 1.00 % Normal = 1 00 Normal global longitudinal peak systolic value. X - Cannot 1 - Normal 2 - 3 - Akinetic 4 - Dyskinetic Interpret Hyp okinetic 5 - Aneurysmal 3D imaginD volumes were not performed in this st y. Cardiac Mechanics/Speckle Tracking Imagi ng: Normal global longitudinal peak systolic value. Strain Imaging was performed; GLPS avg = -20.6%. Diastology: Impaired LV relaxation pattern of diasto lic dysfunction, Doppler suggests normal LA pressures. Right Ventricle: The right ventricle is normal in size an d function. Normal RV systolic function using TAPSE criteria. Atria: Atria are normal in size. Mitral Valve: The mitral valve is normal. Tricuspid Valve: The tricuspid valve is not well visualiz ed, but is grossly normal. There is trace tricuspid regurgitation. Estimated RVSP is 25-30mmHg. Aortic Valve: The aortic valve is trileaflet. The aort ic valve opens well. Mild aortic valve thickening. There is trace aortic regurgitation. Pulmonic Valve: The pulmonic valve is not well visualize d. Great Vessels: The aortic root is normal size. The aort ic arch is not well visualized. The inferior vena cava demonstrates normal size and normal respiratory variation. Pericardium/Pleural: There is no pericardial effusion. Preliminary Reviewer Preliminary Interpretation: Inge ramirez MD. MMode/2D Measurements IVSd: 1.0 cm LVIDd: 4.2 cm LVIDs: 2.5 cm LVPWd: 1.0 cm FS: 39.3 % Ao root diam: 2.8 cm Ao root area: 6.3 cm2 LA dimension: 3.0 cm LVOT diam: 2.2 cm EDV(MOD-A4C): 95.7 ml ESV(MOD-A4C): 38.6 ml LVOT area: 3.8 cm2 EF(MOD-A4C): 59.7 % EDV(MOD-A2C): 78.6 ml ESV(MOD-A2C): 32.0 ml EDV(MOD-bp): 87.9 ml EF(MOD-A2C): 59.3 % ESV(MOD-bp): 35.0 ml EF(MOD-bp): 60.2 % LAV(MOD-A2C): 41.9 ml EDV (MOD-bp) Index: 41.7 ml/m2 LAV(MOD-A4C): 33.7 ml LAV(MOD-bp): 38.1 ml LAV(MOD-bp) Indexed: 18.1 ml/m2 ESV (MOD-bp) Index: 16.6 ml/m2 RWT: 0.49 cm TAPSE (>1.6): 1.8 cm Doppler Measurements MV E max demetrius: 66.1 cm/sec MV V2 max: 92.2 cm/sec MV A max demetrius: 75.5 cm/sec MV max P.4 mmHg MV E/A: 0.88 MV V2 mean: 48.0 cm/sec MV mean P.1 mmHg MV V2 VTI: 28.3 cm MVA(VTI): 3.9 cm2 MV dec time: 0.28 sec Ao V2 max: 153.4 cm/sec Ao max P.4 mmHg Ao V2 mean: 114.2 cm/sec Ao mean P.8 mmHg Ao V2 VTI: 36.1 cm RIGOBERTO(I,D): 3.1 cm2 RIGOBERTO(V,D): 3.2 cm2 LV V1 max P.7 mmHg SV(LVOT): 111.1 ml LV V1 mean P.9 mmHg LV V1 max: 129.8 cm/sec LV V1 mean: 92.7 cm/sec LV V1 VTI: 29.0 cm PA V2 max: 106.4 cm/sec Med Peak E' Demetrius: 7.0 cm/sec PA max P.5 mmHg PA V2 mean: 63.4 cm/sec PA mean P.0 mmHg PA V2 VTI: 24.9 cm Lat Peak E' Demetrius: 7.3 cm/sec TR max demetrius: 244.9 cm/sec TR max P.9 mmHg RVSP(TR): 28.9 mmHg RAP systole: 3.0 mmHg RIGOBERTO Index (I,D): 1.5 RIGOBERTO Index (V,D): 1.5 Dimensionless Index: 0.85 E/e' (avg): 9.3 E/e' (lat): 9.1 E/e' (sept): 9.5 Procedure Note Morris Dias MD - 11/03/2021Formatting o f this note might be different from the original. Echocardiographic Report Interpretation Summary A complete two-dimensional transthoracic echocardiogram was performed (2D, M- mode, Spectral and color Doppler). There is no comparison study available. Normal left ventricular size and systoli c function. LV ejection fraction (LVEF) is in the ra nge of 60% (calculated by method of discs). The right ventricle is normal in size an d function. There is no pericardial effusion. Left Ventricle: Normal left ventricular size and systoli c function. There is no thrombus. There is normal left ventricular wall thickness. Sigmoidal septal shape noted. LV ejection fraction (LVEF) is in the range of 60% (calculated by method of discs). No regional wall motio n abnormalities noted. I WMSI = 1.00 % Normal = 100 Normal global longitudinal peak syst olic value. X - Cannot 1 - Normal 2 - 3 - Akinetic 4 - Dyskinetic Interpret Hypokinetic 5 - Aneurysmal 3D imaginD volumes were not performed in this [facility]. Cardiac Mechanics/Speckle Tracking Imagi ng: Normal global longitudinal peak systolic value. Strain Imaging was performed; GLPS avg = -20.6%. Diastology: Impaired LV relaxation pattern of diasto lic dysfunction, Doppler suggests normal LA pressures. Right Ventricle: The right ventricle is normal in size an d function. Normal RV systolic function using TAPSE criteria. Atria: Atria are normal in size. Mitral Valve: The mitral valve is normal. Tricuspid Valve: The tricuspid valve is not well visualiz ed, but is grossly normal. There is trace tricuspid regurgitation. Estimated RVSP is 25-30mmHg. Aortic Valve: The aortic valve is trileaflet. The aort ic valve opens well. Mild aortic valve thickening. There is trace aortic regurgitation. Pulmonic Valve: The pulmonic valve is not well visualize d. Great Vessels: The aortic root is normal size. The aort ic arch is not well visualized. The inferior vena cava demonstrates normal size and normal respiratory variation. Pericardium/Pleural: There is no pericardial effusion. Preliminary Reviewer Preliminary Interpretation: Inge ramirez MD. MMode/2D Measurements IVSd: 1.0 cm LVIDd: 4.2 cm LVIDs: 2.5 cm LVPWd: 1.0 cm FS: 39.3 % Ao root diam: 2.8 cm Ao root area: 6.3 cm2 LA dimension: 3.0 cm LVOT diam: 2.2 cm EDV(MOD-A4C): 95. 7 ml ESV(MOD-A4C): 38.6 ml LVOT area: 3.8 cm2 EF(MOD-A4C): 59.7 % EDV(MOD-A2C): 78.6 ml ESV(MOD-A2C): 32.0 ml EDV(MOD-bp): 8 7.9 ml EF(MOD-A2C): 59.3 % ESV(MOD-bp): 35. 0 ml EF(MOD-bp): 60.2 % LAV(MOD-A2C): 41.9 ml EDV (MOD-bp) Index: 41.7 ml/m2 LAV(MOD-A4C): 33.7 ml LAV(MOD-bp): 38.1 ml LAV(MOD-bp) Indexed: 18.1 ml/m2 ESV (MOD-bp) Index: 16.6 ml/m2 RWT: 0.49 cm TAPSE (>1.6): 1.8 cm Doppler Measurements MV E max demetrius: 66.1 cm/sec MV V2 max: 92.2 cm/sec MV A max demetrius: 75.5 cm/sec MV max P.4 mmHg MV E/A: 0.88 MV V2 mean: 48.0 cm/sec MV mean P.1 mmHg MV V2 VTI: 28.3 cm MVA(VTI): 3.9 cm2 MV dec time: 0.28 sec Ao V2 max: 153. 4 cm/sec Ao max P.4 mmHg Ao V2 mean: 114.2 cm/sec Ao mean P.8 mmHg Ao V2 VTI: 36.1 cm RIGOBERTO(I,D): 3.1 cm2 RIGOBERTO(V,D): 3.2 cm2 LV V1 max P.7 mmHg SV(LVOT): 11 1.1 ml LV V1 mean P.9 mmHg LV V1 max: 129.8 cm/sec LV V1 mean: 92.7 cm/sec LV V1 VTI: 29.0 cm PA V2 max: 106.4 cm/sec Med Peak E' Demetrius: 7.0 cm/sec PA max P.5 mmHg PA V2 mean: 63.4 cm/sec PA mean P.0 mmHg PA V2 VTI: 24.9 cm Lat Peak E' Demetrius: 7.3 cm/sec TR max v el: 244.9 cm/sec TR max P.9 mmHg RVSP(TR): 28.9 mmHg RAP systole: 3.0 mmHg RIGOBERTO Index (I,D ): 1.5 RIGOBERTO Index (V,D): 1.5 Dimensionless I ndex: 0.85 E/e' (avg): 9.3 E/e' (lat): 9.1 E/e' (sept): 9.5 Misty Cardoza MD CV ECHO ORDERABLES Performing Organization Address City/[facility]/ZIP Code Phon e Number ISCV EKG, 12-Lead (Scheduled) (11/03/2021) Specimen (Source) Anatomical Location Collection Method / Collectio n Time Received Time / Laterality Volume Narrative This result has an attachment that is no t available. Misty Cardoza MD ECG ORDERABLES Performing Organization Address City/[facility]/ZIP Code Phon e Number RAYSHAWN IECG NM Bone Scan Whole Body (11/02/2021 9:40 AM CDT) Anatomical Region Laterality Modality Whole Body Nuclear Medicine Specimen (Source) Anatomical Collection Method Collection Time Re ceived Time Location / / Volume Laterality 11/02/2021 9:43 AM CDT Impressions 11/02/2021 9:53 AM CDT No scintigraphic evidence of osseous metastatic disease. I personally reviewed these image(s) marco a hassan with the resident's/fellow's interpretations, certify that if a procedure was performed I was physically present, and agree with the final report. Narrative 11/02/2021 9:53 AM CDT FULL RESULT: Examination: Whole-Body Bone Scan, 2021 9:40 AM Clinical History: A 66-year-old female w ith breast cancer. Indication: Staging. Comparison: CT chest abdomen and pelvis 11/02/2021 Technique: Following the intravenous adm inistration of mCi of technetium-99m MDP, anterior and posterior delayed whole-body planar images were acquired. Findings: Expected photopenia of the fem oral heads from bilateral arthroplasties. No abnormal radiotracer uptake to suggest osseous metastatic disease. The patient is status post right knee replacement. Scattered uptake in the shoulders, left knee, ankles, and feet, which are likely degenerative. Physiologic excretion of radiotracer is seen in the kidneys and bladder. Procedure Note Elijah Mc MD - 11/02/2021Fo rmatting of this note might be different from the original. FULL RESULT: Examination: Whole-Body Bone Scan, 2021 9:40 AM Clinical History: A 66-year-old female w ith breast cancer. Indication: Staging. Comparison: CT chest abdomen and pelvis 11/02/2021 Technique: Following the intravenous adm inistration of mCi of technetium-99m MDP, anterior and posterior delayed whole-body planar images were acquired. Findings: Expected photopenia of the fem oral heads from bilateral arthroplasties. No abnormal radiotracer uptake to suggest osseous metastatic disease. The patient is status post right knee replacement. Scattered uptake in the shoulders, left knee, ankles, and feet, which are likely degenerative. Physiologic excretion of radiotracer is seen in the kidneys and bladder. IMPRESSION: No scintigraphic evidence of osseous met astatic disease. I personally reviewed these image(s) marco a ng with the resident's/fellow's interpretations, certify that if a procedure was performed I was physically present, and agree with the final report. Chelsie SAUL NM ORDERABLES CT Chest Abdomen Pelvis with and without Contrast (11/02/2021 8:42 AM CDT) Anatomical Region Laterality Modality Abdomen, Pelvis, Chest Computed Tomograp hy Specimen (Source) Anatomical Collection Method Collection Time Re ceived Time Location / / Volume Laterality 11/02/2021 10:54 AM CDT Impressions 11/02/2021 11:17 AM CDT 1. Right breast mass consistent with the patient's primary malignancy. 2. Enlarged right axillary and subpector al nodes. The largest node contains a biopsy clip marker. Correlation with biopsy results is advised. 3. Nonspecific nodular thickening of the adrenal glands, possibly adrenal adenomata. 4. Too small to characterize subcentimet er segment 4 hepatic hypodensity. 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 DISCUSSION : CHEST : Thyroid : Unremarkable Lungs: No pneumothorax/pleural effusio n. No suspicious pulmonary nodules. Lymphatics: No hilar or mediastinal lymp hadenopathy. No left axillary lymphadenopathy. There are enlarged/prominent right-sided subpectoral and axillary nodes. For example, one of the nodes containing a biopsy marker clip (image 52, series 5) , measures up to 1.5 x 1.5 cm. An additional node further cephalad (image 44, series 5), measures up to 1.1 cm in short axis diameter. Some smaller volume right s ubpectoral nodes measures up to 0.6 cm i n short axis diameter (image 32, series 5). Mediastinum : No mediastinal masses. Bones/Soft tissue : No suspicious osseou s lesions. In the right breast and in retroareolar location (image 68, series 5), there is an approximately 3.0 x 2.8 cm mass most consistent with the patient's primary neoplasm. ABDOMEN/PELVIS : Hepatobiliary: Gallbladder is unremark able. In segment 4 of the liver (image 159, series 5), there is a too small to characterize bilobed lesion measuring up to 0.7 cm. This can either be closely followed by CT or correlated with MRI. Spleen : Unremarkable Pancreas : Unremarkable Gastrointestinal: Stomach and small mar l are unremarkable. Colonic diverticulosis. Appendix is unremarkable. Genitourinary: Nonspecific nodular thi ckening of the adrenal glands with the largest nodule in the left adrenal gland measuring up to 1.0 cm (image 171, series 5). An additional area in the right adre nal gland (image 174, series 5), measure s up to 1.1 cm. While these could represent adrenal adenomata, findings can be best correlated with an MRI, adrenal mass protocol. Too small to characterize bilateral renal hypodensities. Lymphatics: No abdominal, retroperiton eal or pelvic lymphadenopathy. Soft tissues/bones: Tiny sclerotic foc us is seen in the left iliac bone (image 29, series 5), measuring up to 0.4 cm. Bilateral hip prostheses from which streak artifact limits evaluation of the pelvis. Other : No free air/free fluid. 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 DISCUSSION : CHEST : Thyroid : Unremarkable Lungs: No pneumothorax/pleural effusion. No suspicious pulmonary nodules. Lymphatics: No hilar or mediastinal lymp hadenopathy. No left axillary lymphadenopathy. There are enlarged/prominent right-sided subpectoral and axillary nodes. For example, one of the nodes containing a biopsy marker clip (image 52, series 5), measures up t o 1.5 x 1.5 cm. An additional node further cephalad (image 44, series 5), measures up to 1.1 cm in short axis diameter. Some smaller volume right subpectoral nodes measures up to 0.6 cm in short axis diameter (image 32, ser ies 5). Mediastinum : No mediastinal masses. Bones/Soft tissue : No suspicious osseou s lesions. In the right breast and in retroareolar location (image 68, series 5), there is an approximately 3.0 x 2.8 cm mass most consistent with the patient's primary neoplasm. ABDOMEN/PELVIS : Hepatobiliary: Gallbladder is unremarkab le. In segment 4 of the liver (image 159, series 5), there is a too small to characterize bilobed lesion measuring up to 0.7 cm. This can either be closely followed by CT or correlated with MRI. Spleen : Unremarkable Pancreas : Unremarkable Gastrointestinal: Stomach and small mar l are unremarkable. Colonic diverticulosis. Appendix is unremarkable. Genitourinary: Nonspecific nodular thick ening of the adrenal glands with the largest nodule in the left adrenal gland measuring up to 1.0 cm (image 171, series 5). An additional area in the right adrenal gland (image 174, series 5), measures up to 1.1 cm. While these could represent adrenal adenomata, findings can be best correlated with an MRI, adrenal mass protocol. Too small to characterize bilateral renal hypodensities. Lymphatics: No abdominal, retroperitonea l or pelvic lymphadenopathy. Soft tissues/bones: Tiny sclerotic focus is seen in the left iliac bone (image 29, series 5), measuring up to 0.4 cm. Bilateral hip prostheses from which streak artifact limits evaluation of the pelvis. Other : No free air/free fluid. IMPRESSION: 1. Right breast mass consistent with the patient's primary malignancy. 2. Enlarged right axillary and subpector al nodes. The largest node contains a biopsy clip marker. Correlation with biopsy results is advised. 3. Nonspecific nodular thickening of the adrenal glands, possibly adrenal adenomata. 4. Too small to characterize subcentimet er segment 4 hepatic hypodensity. Chelsie RENNER IMRoni CT ORDERABLES POC Creatinine (11/02/2021 7:27 AM CDT) P athologist Signature POC Crea 0.9 0.6 - 1.3 POC [facility] mg/dL Comment: Medications, especially hydroxyurea or s upplements, such as ascorbate, can interfere with test results causing a falsely and significantly higher result than expected. If a problem is suspected with a patient's result, a sample should be sent to the laboratory for confirmatory testing. Method description: The i-STAT is an madeleine lyzer used for in vitro quantification of various analytes in whole blood. The device uses a single disposable cartridge which contains microfabricated sensors, a calibration solution, fluidics system, and a waste chamber. Each test cartridge contains ch emically sensitive biosensors on a silicon chip that are configured to perform specific tests. The microfabricated sensors measure analyte concentration by an electrochemical assay. POC eGFR-AA 77 >=60 mL/min/1.73 m2 POC [facility] OR Comment: Normal eGFR >= 60 mL/min/1.73 m2 The eGFR is calculated using the CKD-EPI equation. The eGFR declines with age. eGFR <60 mL/min/1.73 m2 is considered as "decreased" This equation should only be used for patients 18 and older. According to the [employer] ion's Kidney Disease Outcome Quality Initiative (KDOQI) classification and 2012 Kidney Disease Improving Global Outcomes (KDIGO) Clinical Practice Guideline, the stage of CKD should be categorized based on estimated GFR. Stage Description GFR mL/min/1.73 m2 1 Kidney damage with normal or high GFR >=90 2 Kidney damage with mild decrease in GF R 60-89 3a Mild to moderate decrease in GFR 45-59 3b Moderate to severe decrease in GFR 30-44 4 Severe decrease in GFR 15-29 5 Kidney failure <15 (or dialysis) POC eGFR-KAVEH 67 >=60 mL/min/1.73 m2 POC [facility] Comment: Normal eGFR >= 60 mL/min/1.73 m2 The eGFR is calculated using the CKD-EPI equation. The eGFR declines with age. eGFR <60 mL/min/1.73 m2 is considered as "decreased" This equation should only be used for patients 18 and older. According to the [employer]'s Kidney Disease Outcome Quality Initiative (KDOQI) classification and 2012 Kidney Disease Improving Global Outcomes (KDIGO) Clinical Practice Guideline, the stage of CKD should be categorized based on estimated GFR. Stage Description GFR mL/min/1.73 m2 1 Kidney damage with normal or high GFR >=90 2 Kidney damage with mild decrease in GF R 60-89 3a Mild to moderate decrease in GFR 45-59 3b Moderate to severe decrease in GFR 30-44 4 Severe decrease in GFR 15-29 5 Kidney failure <15 (or dialysis) POC Clean Dev Yes POC [facility] Performing Lab [facility] [place] POC [facility] Comment: Diagnostic Imaging [facility], [address] [place] [address]; Point of Care Therapist Speech: Rosalind Neal MD Specimen Anatomical Collection Method Collection Time Receive d Time (Source) Location / / Volume Laterality Blood 11/02/2021 7:27 AM 2 7:27 CDT AM CDT Chelsie RENNER POCT ORDERABLES - DEVICE Performing Organization Address City/State/ZIP Code Phon e Number POC [facility] Post Procedure Mammogram Right (10/26/2021 1:50 PM CDT) Anatomical Region Laterality Modality Breast Left Mammography Specimen (Source) Anatomical Collection Method Collection Time Re ceived Time Location / / Volume Laterality 10/26/2021 1:57 PM CDT Addenda Addendum by Christina Yates MD on 11/01 1:36 PM CDT ADDENDED REPORT ----- 11/01/2021 Addendum: Pathology findings are malignant and con cordant. Findings were relayed to ZURDO Miles, via institutional e mail. Contains abnormal data Cytology Image-Gu ided FNA Interpretation: [id number] Collected 10/26/2021 12:30 Status: Final r esult Size: 2.7cm Diagnosis A. Lymph node, right axilla, fine needle aspiration: METASTATIC CARCINOMA CONSISTENT WITH MAIA AST PRIMARY at 1201 Impressions 10/26/2021 1:57 PM CDT Technically successful ultrasound guided biopsy of the right axilla. An addendum will be issued once the final pathology result is available and reviewed. Examination: Post Procedure Mammogram Ri t 10/26/2021. Clinical Indication: Patient is a 66 y ears old female and is seen for post procedure mammogram. Findings: See Ultrasound-guided biopsy r eport done same date. Narrative 10/26/2021 1:57 PM CDT Examination: Right Axilla Ultrasound Guided Needle Biopsy with Marker Clip Placement and Post Biopsy Mammograms, . Clinical History: 66-year-old woman wi th an abnormal breast ultrasound presenting for biopsy. Indication: Suspicious finding(s) on rec ent breast ultrasound. Comparison: Breast Ultrasound from 10-26. Technique: Ultrasound imaging of the rig ht axilla was performed. The skin of the breast(s) was cleansed with chlorhexidin e. Local anesthesia was achieved with a total of 5ml 1% Lidocaine. Procedure: The procedure and its risks, benefits, and alternatives were explained in detail to the patient, who agreed to proceed and signed an informed consent form. All questions were answere d. The patient was brought to the ultrasoun d suite and was placed supine on the table. Site 1: The lesion in question was ident ified in the right axilla. The biopsy needle was advanced to the targeted lesi on. Biopsy was performed with a 21-gauge needle, and 2 passes were made. Immediat e cytopathology assessment was performed, and the specimen was deemed a dequate for diagnosis. Preliminary cytology result is malignant. A marke r clip was deployed into the biopsied lesion. At th e conclusion of the procedure, pressure was held until cessation of bleeding. Th e skin incision was closed with Steri-strips and covered with a bandage. A Tumark U-shaped marker clip was placed at the biopsy site. Post procedure mammography confirms expected positionin g of the marker clip(s) The clip marker lies within the biopsi ed lesion. The estimated blood loss for the procedu re was minimal. The patient tolerated the procedure well without immediate com plications and left the department in good condition. Procedure Note Christina Yates MD - 10/26/2021Formatti ng of this note might be different from the original. Examination: Right Axilla Ultrasound Christiano ded Needle Biopsy with Marker Clip Placement and Post Biopsy Mammograms, . Clinical History: 66-year-old woman with an abnormal breast ultrasound presenting for biopsy. Indication: Suspicious finding(s) on rec ent breast ultrasound. Comparison: Breast Ultrasound from 2. Technique: Ultrasound imaging of the rig ht axilla was performed. The skin of the breast(s) was cleansed with chlorhexidin e. Local anesthesia was achieved with a total of 5ml 1% Lidocaine. Procedure: The procedure and its risks, benefits, and alternatives were explained in detail to the patient, who agreed to proceed and signed an informed consent form. All questions were answere d. The patient was brought to the ultrasoun d suite and was placed supine on the table. Site 1: The lesion in question was ident ified in the right axilla. The biopsy needle was advanced to the targeted lesi on. Biopsy was performed with a 21-gauge needle, and 2 passes were made. Immediat e cytopathology assessment was performed, and the specimen was deemed a dequate for diagnosis. Preliminary cytology result is malignant. A marker c lip was deployed into the biopsied lesion. At th e conclusion of the procedure, pressure was held until cessation of bleeding. Th e skin incision was closed with Steri-strips and covered with a bandage. A Tumark U-shaped marker clip was placed at the biopsy site. Post procedure mammography confirms expected positionin g of the marker clip(s) The clip marker lies within the biopsied lesion. The estimated blood loss for the procedu re was minimal. The patient tolerated the procedure well without immediate com plications and left the department in good condition. IMPRESSION: Technically successful ultrasound guided biopsy of the right axilla. An addendum will be issued once the final pathology result is available and reviewed. Examination: Post Procedure Mammogram [facility] 10/26/2021. Clinical Indication: Patient is a 66 yea rs old female and is seen for post procedure mammogram. Findings: See Ultrasound-guided biopsy r eport done same date. Chelsie RENNER IMG MAMMOGRAPHY ORDERABLES US Guided Axillary Clip Placement Right (10/26/2021 1:42 PM CDT) Anatomical Region Laterality Modality Lymph Node Right Ultrasound Specimen (Source) Anatomical Collection Method Collection Time Re ceived Time Location / / Volume Laterality 10/26/2021 1:57 PM CDT Addenda Addendum by Christina Yates MD on 11/01 1:36 PM CDT ADDENDED REPORT ----- 11/01/2021 Addendum: Pathology findings are malignant and con cordant. Findings were relayed to ZURDO Miles, via institutional e mail. Contains abnormal data Cytology Image-Gu ided FNA Interpretation: [id number] Collected 10/26/2021 12:30 Status: Final r esult Size: 2.7cm Diagnosis A. Lymph node, right axilla, fine needle aspiration: METASTATIC CARCINOMA CONSISTENT WITH MAIA AST PRIMARY at 1201 Impressions 10/26/2021 1:57 PM CDT Technically successful ultrasound guided biopsy of the right axilla. An addendum will be issued once the final pathology result is available and reviewed. Examination: Post Procedure Mammogram [facility] 10/26/2021. Clinical Indication: Patient is a 66 y ears old female and is seen for post procedure mammogram. Findings: See Ultrasound-guided biopsy r eport done same date. Narrative 10/26/2021 1:57 PM CDT Examination: Right Axilla Ultrasound Guided Needle Biopsy with Marker Clip Placement and Post Biopsy Mammograms, . Clinical History: 66-year-old woman wi th an abnormal breast ultrasound presenting for biopsy. Indication: Suspicious finding(s) on rec ent breast ultrasound. Comparison: Breast Ultrasound from 10-26. Technique: Ultrasound imaging of the rig axilla was performed. The skin of the breast(s) was cleansed with chlorhexidin e. Local anesthesia was achieved with a total of 5ml 1% Lidocaine. Procedure: The procedure and its risks, benefits, and alternatives were explained in detail to the patient, who agreed to proceed and signed an informed consent form. All questions were answere d. The patient was brought to the ultrasoun d suite and was placed supine on the table. Site 1: The lesion in question was ident ified in the right axilla. The biopsy needle was advanced to the targeted lesi on. Biopsy was performed with a 21-gauge needle, and 2 passes were made. Immediat e cytopathology assessment was performed, and the specimen was deemed a dequate for diagnosis. Preliminary cytology result is malignant. A marke r clip was deployed into the biopsied lesion. At th e conclusion of the procedure, pressure was held until cessation of bleeding. Th e skin incision was closed with Steri-strips and covered with a bandage. A Memeoark U-shaped marker clip was placed at the biopsy site. Post procedure mammography confirms expected positionin g of the marker clip(s) The clip marker lies within the biopsi ed lesion. The estimated blood loss for the procedu re was minimal. The patient tolerated the procedure well without immediate com plications and left the department in good condition. Procedure Note Christina Yates MD - 10/26/2021Formatti ng of this note might be different from the original. Examination: Right Axilla Ultrasound Christiano ded Needle Biopsy with Marker Clip Placement and Post Biopsy Mammograms, . Clinical History: 66-year-old woman with an abnormal breast ultrasound presenting for biopsy. Indication: Suspicious finding(s) on rec ent breast ultrasound. Comparison: Breast Ultrasound from 2. Technique: Ultrasound imaging of the rig axilla was performed. The skin of the breast(s) was cleansed with chlorhexidin e. Local anesthesia was achieved with a total of 5ml 1% Lidocaine. Procedure: The procedure and its risks, benefits, and alternatives were explained in detail to the patient, who agreed to proceed and signed an informed consent form. All questions were answere d. The patient was brought to the ultrasoun d suite and was placed supine on the table. Site 1: The lesion in question was ident ified in the right axilla. The biopsy needle was advanced to the targeted lesi on. Biopsy was performed with a 21-gauge needle, and 2 passes were made. Immediat e cytopathology assessment was performed, and the specimen was deemed a dequate for diagnosis. Preliminary cytology result is malignant. A marker c lip was deployed into the biopsied lesion. At th e conclusion of the procedure, pressure was held until cessation of bleeding. Th e skin incision was closed with Steri-strips and covered with a bandage. A Tumark U-shaped marker clip was placed at the biopsy site. Post procedure mammography confirms expected positionin g of the marker clip(s) The clip marker lies within the biopsied lesion. The estimated blood loss for the procedu re was minimal. The patient tolerated the procedure well without immediate com plications and left the department in good condition. IMPRESSION: Technically successful ultrasound guided biopsy of the right axilla. An addendum will be issued once the final pathology result is available and reviewed. Examination: Post Procedure Mammogram Ri t 10/26/2021. Clinical Indication: Patient is a 66 yea rs old female and is seen for post procedure mammogram. Findings: See Ultrasound-guided biopsy r eport done same date. Chelsie RENNER IMRoni US ORDERABLES (ABNORMAL) US Head Neck Soft Tissue (10/26/2021 1:42 PM CDT) Anatomical Region Laterality Modality Head, Neck Ultrasound Specimen (Source) Anatomical Collection Method Collection Time Re ceived Time Location / / Volume Laterality 10/26/2021 1:55 PM CDT Impressions 10/26/2021 1:55 PM CDT Biopsy should be considered. Known right breast cancer. Abnormal right axillary level 1 lymph nodes as described above. An ultrasound-guided biopsy is recommended for further evaluation and s chedule to follow. Findings were discussed with the patient at the time o f the exam. BI-RADS Category 4: Suspicious Abnormality Narrative 10/26/2021 1:55 PM CDT CLINICAL INDICATION: Patient is a 66 year old female and is s een for breast cancer FILMS COMPARED The present examination has been compare d to prior imaging studies performed at an outside location on 08/07/2019, 08/23 and 09/06/2021. Images were obtained in multiple scannin g planes. Real-time sonographic imaging of the rig ht breast (including all 4 quadrants and retroareolar region) was performed. Re al-time sonographic imaging of the right regional eddy basins including ultrasou nd of the chest/mediastinum to evaluate the axillary (level I,II,III) and financial services internship al mammary regions was performed. An irregular spiculated hypoechoic mass in the right central retroareolar breast measures 2.7 x 3 x 3.2 cm. An associat ed biopsy clip indicates site of biopsy-proven malignancy from outside [facility] (MD Neville over read pending). The mass extends to the nipple, which is retracted. There are no other suspicious findings in the right breast. There are 2 abnormally enlarged right ax illary lymph nodes, the index of which measures 2.7 x 1.4 x 1.6 cm. There are no other suspicious findings in the right axillary level 1, 2, 3 internal ma mmary or supraclavicular eddy basins. There is no evidence of any solid mass o r other abnormality in the left breast. Procedure Note Christina Yates MD - 10/26/2021Formatti ng of this note might be different from the original. CLINICAL INDICATION: Patient is a 66 year old female and is s een for breast cancer FILMS COMPARED The present examination has been compare d to prior imaging studies performed at an outside location on 08/07/2019, 08/23 and 09/06/2021. Images were obtained in multiple scannin g planes. Real-time sonographic imaging of the rig ht breast (including all 4 quadrants and retroareolar region) was performed. Real -time sonographic imaging of the right regional eddy basins including ultrasou nd of the chest/mediastinum to evaluate the axillary (level I,II,III) and financial services internship al mammary regions was performed. An irregular spiculated hypoechoic mass in the right central retroareolar breast measures 2.7 x 3 x 3.2 cm. An associated biopsy clip indicates site of biopsy-proven malignancy from outside fa cility ([place] over read pending). The mass extends to the nipple, which is retracted. There are no other suspicious findings in the right breast. There are 2 abnormally enlarged right ax illary lymph nodes, the index of which measures 2.7 x 1.4 x 1.6 cm. There are n o other suspicious findings in the right axillary level 1, 2, 3 internal ma mmary or supraclavicular eddy basins. There is no evidence of any solid mass o r other abnormality in the left breast. IMPRESSION: Biopsy should be considered. Known right breast cancer. Abnormal right axillary level 1 lymph nodes as described above. An ultrasound-guided biopsy is recommended for further evaluation and s chedule to follow. Findings were discussed with the patient at the time o f the exam. BI-RADS Category 4: Suspicious Abnormality Chelsie RENNER IMRoni US ORDERABLES (ABNORMAL) US Breast Complete - Bilateral (10/26/2021 1:42 PM CDT) Anatomical Region Laterality Modality Breast Bilateral Ultrasound Specimen (Source) Anatomical Collection Method Collection Time Re ceived Time Location / / Volume Laterality 10/26/2021 1:55 PM CDT Impressions 10/26/2021 1:55 PM CDT Biopsy should be considered. Known right breast cancer. Abnormal right axillary level 1 lymph nodes as described above. An ultrasound-guided biopsy is recommended for further evaluation and s chedule to follow. Findings were discussed with the patient at the time o f the exam. BI-RADS Category 4: Suspicious Abnormality Narrative 10/26/2021 1:55 PM CDT CLINICAL INDICATION: Patient is a 66 year old female and is s een for breast cancer FILMS COMPARED The present examination has been compare d to prior imaging studies performed at an outside location on 08/07/2019, 08/23 and 09/06/2021. Images were obtained in multiple scannin g planes. Real-time sonographic imaging of the rig ht breast (including all 4 quadrants and retroareolar region) was performed. Re al-time sonographic imaging of the right regional eddy basins including ultrasou nd of the chest/mediastinum to evaluate the axillary (level I,II,III) and financial services internship al mammary regions was performed. An irregular spiculated hypoechoic mass in the right central retroareolar breast measures 2.7 x 3 x 3.2 cm. An associat ed biopsy clip indicates site of biopsy-proven malignancy from outside [facility] (MD [place] over read pending). The mass extends to the nipple, which is retracted. There are no other suspicious findings in the right breast. There are 2 abnormally enlarged right ax illary lymph nodes, the index of which measures 2.7 x 1.4 x 1.6 cm. There are no other suspicious findings in the right axillary level 1, 2, 3 internal ma mmary or supraclavicular eddy basins. There is no evidence of any solid mass o r other abnormality in the left breast. Procedure Note Christina Yates MD - 10/26/2021Formatti ng of this note might be different from the original. CLINICAL INDICATION: Patient is a 66 year old female and is s een for breast cancer FILMS COMPARED The present examination has been compare d to prior imaging studies performed at an outside location on 08/07/2019, 08/23 and 09/06/2021. Images were obtained in multiple scannin g planes. Real-time sonographic imaging of the rig ht breast (including all 4 quadrants and retroareolar region) was performed. Real -time sonographic imaging of the right regional eddy basins including ultrasou nd of the chest/mediastinum to evaluate the axillary (level I,II,III) and financial services internship al mammary regions was performed. An irregular spiculated hypoechoic mass in the right central retroareolar breast measures 2.7 x 3 x 3.2 cm. An associated biopsy clip indicates site of biopsy-proven malignancy from outside [facility] (MD [place] over read pending). The mass extends to the nipple, which is retracted. There are no other suspicious findings in the right breast. There are 2 abnormally enlarged right ax illary lymph nodes, the index of which measures 2.7 x 1.4 x 1.6 cm. There are n o other suspicious findings in the right axillary level 1, 2, 3 internal ma mmary or supraclavicular eddy basins. There is no evidence of any solid mass o r other abnormality in the left breast. IMPRESSION: Biopsy should be considered. Known right breast cancer. Abnormal right axillary level 1 lymph nodes as described above. An ultrasound-guided biopsy is recommended for further evaluation and s chedule to follow. Findings were discussed with the patient at the time o f the exam. BI-RADS Category 4: Suspicious Abnormality Chelsie Alan-Navarrete PA IMG US ORDERABLES US Guided Axillary Lymph Node FNA - Right for Breast Ultrasound (10/26/2021 1:42 PM CDT) Anatomical Region Laterality Modality Lymph Node Right Ultrasound Specimen (Source) Anatomical Collection Method Collection Time Re ceived Time Location / / Volume Laterality 10/26/2021 1:57 PM CDT Addenda Addendum by Christina Yates MD on 11/01 1:36 PM CDT ADDENDED REPORT ----- 11/01/2021 Addendum: Pathology findings are malignant and con cordant. Findings were relayed to ZURDO Miles, via institutional e mail. Contains abnormal data Cytology Image-Gu ided FNA Interpretation: [id number] Collected 10/26/2021 12:30 Status: Final r esult Size: 2.7cm Diagnosis A. Lymph node, right axilla, fine needle aspiration: METASTATIC CARCINOMA CONSISTENT WITH MAIA AST PRIMARY at 1201 Impressions 10/26/2021 1:57 PM CDT Technically successful ultrasound guided biopsy of the right axilla. An addendum will be issued once the final pathology result is available and reviewed. Examination: Post Procedure Mammogram [facility] 10/26/2021. Clinical Indication: Patient is a 66 y ears old female and is seen for post procedure mammogram. Findings: See Ultrasound-guided biopsy r eport done same date. Narrative 10/26/2021 1:57 PM CDT Examination: Right Axilla Ultrasound Guided Needle Biopsy with Marker Clip Placement and Post Biopsy Mammograms, . Clinical History: 66-year-old woman wi th an abnormal breast ultrasound presenting for biopsy. Indication: Suspicious finding(s) on rec ent breast ultrasound. Comparison: Breast Ultrasound from 10-26. Technique: Ultrasound imaging of the rig ht axilla was performed. The skin of the breast(s) was cleansed with chlorhexidin e. Local anesthesia was achieved with a total of 5ml 1% Lidocaine. Procedure: The procedure and its risks, benefits, and alternatives were explained in detail to the patient, who agreed to proceed and signed an informed consent form. All questions were answere d. The patient was brought to the ultrasoun d suite and was placed supine on the table. Site 1: The lesion in question was ident ified in the right axilla. The biopsy needle was advanced to the targeted lesi on. Biopsy was performed with a 21-gauge needle, and 2 passes were made. Immediat e cytopathology assessment was performed, and the specimen was deemed a dequate for diagnosis. Preliminary cytology result is malignant. A marke r clip was deployed into the biopsied lesion. At th e conclusion of the procedure, pressure was held until cessation of bleeding. Th e skin incision was closed with Steri-strips and covered with a bandage. A Tumark U-shaped marker clip was placed at the biopsy site. Post procedure mammography confirms expected positionin g of the marker clip(s) The clip marker lies within the biopsi ed lesion. The estimated blood loss for the procedu re was minimal. The patient tolerated the procedure well without immediate com plications and left the department in good condition. Procedure Note Christina Yates MD - 10/26/2021Formatti ng of this note might be different from the original. Examination: Right Axilla Ultrasound Christiano ded Needle Biopsy with Marker Clip Placement and Post Biopsy Mammograms, . Clinical History: 66-year-old woman with an abnormal breast ultrasound presenting for biopsy. Indication: Suspicious finding(s) on rec ent breast ultrasound. Comparison: Breast Ultrasound from 2. Technique: Ultrasound imaging of the rig ht axilla was performed. The skin of the breast(s) was cleansed with chlorhexidin e. Local anesthesia was achieved with a total of 5ml 1% Lidocaine. Procedure: The procedure and its risks, benefits, and alternatives were explained in detail to the patient, who agreed to proceed and signed an informed consent form. All questions were answere d. The patient was brought to the ultrasoun d suite and was placed supine on the table. Site 1: The lesion in question was ident ified in the right axilla. The biopsy needle was advanced to the targeted lesi on. Biopsy was performed with a 21-gauge needle, and 2 passes were made. Immediat e cytopathology assessment was performed, and the specimen was deemed a dequate for diagnosis. Preliminary cytology result is malignant. A marker c lip was deployed into the biopsied lesion. At th e conclusion of the procedure, pressure was held until cessation of bleeding. Th e skin incision was closed with Steri-strips and covered with a bandage. A Tumark U-shaped marker clip was placed at the biopsy site. Post procedure mammography confirms expected positionin g of the marker clip(s) The clip marker lies within the biopsied lesion. The estimated blood loss for the procedu re was minimal. The patient tolerated the procedure well without immediate com plications and left the department in good condition. IMPRESSION: Technically successful ultrasound guided biopsy of the right axilla. An addendum will be issued once the final pathology result is available and reviewed. Examination: Post Procedure Mammogram Ri t 10/26/2021. Clinical Indication: Patient is a 66 yea rs old female and is seen for post procedure mammogram. Findings: See Ultrasound-guided biopsy r eport done same date. Chelsie RENNER IM US ORDERABLES (ABNORMAL) Cytology Image-Guided FNA Interpretation (10/26/2021 12:30 PM CDT) Component Value Ref Test Analysis Performed Pathologis t Range Method Time At Signature Gross A: 10/27/2021 [facility] Description Specimens procured: 12:01 PM 3 Diff Quik; 7 Pap Stain Slides CDT 10 ml, cloudy bloody fluid in RPMI 1 Cell Block Date/Time Placed in Formalin: 10/26/21 1:39 PM Size: 2.7cm Immediate assessment for specimen adequacy was made x1 by Dr Mazin Castellanos. Immediate Adequate 10/27/2021 [facility] Assessment cellularity 12:01 PM CDT Major MALIGNANT (A) 10/27/2021 [facility] Becky ctronically Classification 12:01 PM navya d by Josephine Castellanos MD on 10/27/2021 a t 12:01 PM Diagnosis A. Lymph node, right axilla, fine needle aspiration: 10/27/2021 [facility] Electronically 12:01 PM signed by Josephine Canchola METASTATIC CARCINOMA CONSISTENT WITH BREAST PRIMARY RAMEZ Castellanos MD on 10/27/2021 a t 12:01 PM Comment The cell block preparation w as contributory towards the above diagnosis. 10/27/2021 [facility] 12:01 PM CDT Retained/Biomark SR:10S, 1CB 10/27/2021 [facility] er Testing MDL CB:>300 12:01 PM MDL Pap:7S CDT MDL FISH:3S MDZeke DQ:3S Informational Some tests 10/27/2021 [facility] Points reported here may 12:01 PM have been CDT developed and performance characteristics determined by [facility]. These tests have not been specifically cleared or approved by the U.S. Food and Drug Administration. This case was screened at [facility], [address] [place] [address]. Specimen Anatomical Collection Method Collection Time Receive d Time (Source) Location / / Volume Laterality Fine Needle Asp 10/26/2021 12:30 10/27/19 22 1:15 (Lymph Node(s), PM CDT PM CDT Right, Axilla) Chelsie Carlisle PA LAB CYTOLOGY ORDERABLES Performing Organization Address City/State/ZIP Code Phon e Number [facility] [place] [address] [id number] (ABNORMAL) Mammography Digital Diagnostic Bilateral with Jasson (10/26/2021 11:22 AM CDT) Anatomical Region Laterality Modality Breast Bilateral Mammography Specimen (Source) Anatomical Collection Method Collection Time Re ceived Time Location / / Volume Laterality 10/26/2021 1:50 PM CDT Impressions 10/26/2021 1:50 PM CDT Finding in the right breast requires additional imaging evaluation. Recommend further evaluation of this finding in th e right breast, which is of concern. Known right breast cancer. An ultrasound is to follow for further evaluation. BI-RADS Category 0: Incomplete: Needs Additional Imaging Minnie luation Narrative 10/26/2021 1:50 PM CDT CLINICAL INDICATION: Patient is a 66 year old female and is s een for breast cancer MAMMO DIGITAL DIAGNOSTIC BILATERAL W JUANI O Digital Mammogram evaluated with Compute r Aided Detection (CAD). COMPARISON: The present examination has been compare d to prior imaging studies performed at an outside location on 06/05/2018, 08/07, 08/23/2020 and 09/06/2021. FINDINGS: The breasts are almost entirely fatty. An irregular spiculated mass in the retr oareolar right breast 0.4 cm from the nipple measures 3.6 x 3.2 x 2.7 cm. Th ere are associated pleomorphic calcifications within the mass. An ass ociated biopsy clip indicates site of biopsy-proven malignancy from outside fa [facility] (MD Neville overread pending). There is overlying nipple retraction. In the left breast, no dominant mass, di stortion, or suspicious calcifications are identified. Tomosynthesis performed in CC and MLO pr ojections. Procedure Note Christina Yates MD - 10/26/2021Formatti ng of this note might be different from the original. CLINICAL INDICATION: Patient is a 66 year old female and is s een for breast cancer MAMMO DIGITAL DIAGNOSTIC BILATERAL W JUANI O Digital Mammogram evaluated with Compute r Aided Detection (CAD). COMPARISON: The present examination has been compare d to prior imaging studies performed at an outside location on 06/05/2018, 08/07, 08/23/2020 and 09/06/2021. FINDINGS: The breasts are almost entirely fatty. An irregular spiculated mass in the retr oareolar right breast 0.4 cm from the nipple measures 3.6 x 3.2 x 2.7 cm. Ther e are associated pleomorphic calcifications within the mass. An assoc iated biopsy clip indicates site of biopsy-proven malignancy from outside fa cility (MD Neville overread pending). There is overlying nipple retraction. In the left breast, no dominant mass, di stortion, or suspicious calcifications are identified. Tomosynthesis performed in CC and MLO pr ojections. IMPRESSION: Finding in the right breast requires add itional imaging evaluation. Recommend further evaluation of this finding in th e right breast, which is of concern. Known right breast cancer. An ultrasound is to follow for further evaluation. BI-RADS Category 0: Incomplete: Needs Additional Imaging Minnie luation Chelsie RENNER IMRoni MAMMOGRAPHY ORDERABLES Pathology Outside Interpretation (10/03/2021) Component Value Ref Test Analysis Performed Pathologis t Range Method Time At Signature Materials Accession#, Stained, Block, Unstained Collected Received 10/26/2021 [facility] Received A. [id number], 8 SS, 0 BLOCKS, 0 USS 10/03/2021 10/25/2021 9:09 AM CDT Diagnosis Outside ([id number], 8 SS, 0 BLOCKS, 0 USS, collected o n 10/03/2021): 10/26/2021 [facility] Electronically 9:09 AM signed by Erika Agosto Right breast upper inner biopsy (A1-A4 with IHC for ER, WV, Her2, and ki-67 on A4): CDT MD Megan on 10/26/2021 a t 9:09 INVASIVE DUCTAL CARCINOMA, NO SPECIAL TYPE. AM JEF GRADE 2 (2 + 2 + 2). Submitted IHC: ER POSITIVE (100%, 3+) WV NEGATIVE (<1%) [id number] NEGATIVE (score 1+) Ki-67 MODERATELY ELEVATED (25%) Biomarker A1, A4 10/26/2021 [facility] Block(s) 9:09 AM CDT Disclaimer "Some tests 10/26/2021 [facility] reported here may 9:09 AM have been CDT developed and performance characteristics determined by [facility]. These tests have not been specifically cleared or approved by the U.S. Food and Drug Administration. If applicable, controls were reviewed and showed appropriate reactivity." Specimen (Source) Anatomical Collection Method Collection Time Re ceived Time Location / / Volume Laterality Tissue 10/03/2021 10/25/2021 3:40 PM CDT Michael Tirado MD LAB PATHOLOGY ORDERABLES Performing Organization Address City/State/ZIP Code Ph[place] [address] [address] OSI Mammo (09/06/2021 11:03 AM CDT) Specimen (Source) Anatomical Location Collection Method / Collectio n Time Received Time / Laterality Volume Narrative [facility] - 10/26/2021 11:03 AM CDT Study acquired at another institution. For comparison only. No [facility] originated interpretation requested or a vailable. Madeleine Plaza MD IMG OUTSIDE IMAGE ORDERA BLES Performing Organization Address City/State/ZIP Code Phon e Number [facility] after 03/18/2021 Insurance Payer Benefit Plan / Subscriber ID Effective Dates Phone Addre ss Type Group HUMANA HUMANA CHOICE [id number] 2021-Presen [address] [address] Medicare [place] [address] Care Teams Law Tutor Relationship Specialty Start Date End Date Kasi Triplett MD PCP - External Referring Cardiology 10/12/[address] [phone] MARIAELENA Fermin - External Primary Internal Medicine 10/12/21 MD Larissa Care Provider [address] [place] [id number] Madeleine Plaza PCP - General Breast Surgery 10/20/21 MD Teresa [address] [place] [address] [id number]
--- OUTSIDE RECORDS SUMMARY | 2022-03-18 11:27 | XMS REPORT | Continuity of Care Document ---
:1955 Author Organization [facility] t Address [address] [place] [address] Care Team Providers Name Role Phone Zander CLAY, Larissa Primary Care Physician [phone] K[address] Attending Clinician Unavailable SYSTEM, PROVIDER NOT IN Attending Clinician Unavailable Kasi Triplett Attending Clinician Unavailable Chelsie Kilpatrick Attending Clinician [phone] Danisha Arias MD Attending Clinician Korin Garzon RN Attending Clinician Unavailable DANISHA ARIAS Attending Clinician Unavailable Risa Wakefield Attending Clinician Kasia Ivory MD Attending Clinician RISA AGUILERA Attending Clinician Unavailable Dianna Oconnor MD Attending Clinician DIANNA OCONNOR Attending Clinician Unavailable Samanta Rolle RN Attending Clinician Unavailable Kerry Plaza MD Attending Clinician [phone] Karlie Link RN Attending Clinician Unavailable Becky Macedo RN Attending Clinician Unavailable Gil Aguirre NP Attending Clinician GIL AGUIRRE Attending Clinician Unavailable Carla CALVERT Ivis Attending Clinician Unavailable Loi CALVERT, Adelaide Alba Attending Clinician Unavailable Say CALVERT, Jackie Unger Attending Clinician Unavailable Merle CALVERT, Gunjan Howard Attending Clinician Quinten CALVERT, hSahnaz Chavez Attending Clinician Era CALVERT, Chey Downing Attending Clinician Suri CALVERT, Gagandeep S Attending Clinician Unavailable Aaron Perez Attending Clinician Dumont RN, Cha Attending Clinician Trace CLAY, Max Attending Clinician Antionette Norman MD Attending Clinician Dewey GILMAN, Logan Attending Clinician Uriel RENNER, Edelmira Messina Attending Clinician Archie VELASQUEZ, Carol Ann Attending Clinician Unavailable Nazia Webb Attending Clinician Rush RENNER, Sylvester Arizmendi Attending Clinician DailyTammy I Attending Clinician Unavailable Sony CLAY, Misty Attending Clinician Ismael CLAY, Toñito Tamayo Attending Clinician Celestino CLAY, Michael Attending Clinician Adriano CLAY, Tiffany Howard Attending Clinician Yan_W Attending Clinician Unavailable Radiology Attending Clinician Unavailable Martha Mckoy MA Attending Clinician Unavailable Lab, Adc Fam Pob I Attending Clinician Unavailable Doctor Unassigned, [place] Attending Clinician Unavailable KERRY PLAZA Admitting Clinician Unavailable Yan_W Admitting Clinician Unavailable Payers Payer Name Policy Type Policy Number Effective Date Expiration Date S agustin [employer] CHOICE [id number] 2021 MEDICARE PPO 00:00:00 [place]: [id number] 2001 [employer] 00:00:00 Problems Condition Condition Condition Status Onset Resolution Last Treating Co mments Source Name Details Category Date Date Treatment Clinician Date Estrogen Estrogen Disease Active Unive rs receptor receptor 8-24 ity of positive positive 00:00: [place] status status 00 (ER+) (ER+) [facility] Neoplasm Neoplasm Disease Active Unive rs of breast of breast 8-24 ity of regional regional 00:00: [place] lymph node lymph node 00 staging staging Anderso category category n N1: N1: Cancer Metastasis Metastasis Ce nter to movable to movable ipsilatera ipsilatera l level I, l level I, II II axillary axillary lymph lymph node(s) node(s) 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 ICD10 Diagnosis Term Detail Technician Utility Unspecifie Unspecifie Disease Active U nivers d d ity of intrapelvi intrapelvi [place] c c Medical protrusion protrusion Br anch of of acetabulum acetabulum , site , site unspecifie unspecifie d d Allergies, Adverse Reactions, Alerts Allergy Allergy Status Severity Reaction(s) Onset Inactive Treating Comm ents Source Name Type Date Date Clinician Paclitax Propensi Active Other (See CO: Un michelle el ty to Comments) 5-24 coughing ity o f adverse 00:00: [place], [place] reaction 00 feeling MD howard tightenin Anderso g of n breath & Cancer feeling Center hot. Infusion stopped. Diphenhyd ramine 50mg, famotidin e 40mg, & hydrocort isone 100mg given. After resolutio n of symptoms infusion rechallen ged @ 1/2 rate and finished infusion at full rate w/o further complicat ions PACLITAX DRUG Active Other 0 MD EL INGREDI 5-24 Anderso 00:00: n 00 PACLITAX DRUG Active Other 0 MD EL INGREDI 5-24 Anders[place] 00:00: n 00 PACLITAX DRUG Active Other 0 MD EL INGREDI 5-24 Anderso 00:00: n 00 PACLITAX DRUG Active Other 0 MD EL INGREDI 5-24 [place]o 00:00: n 00 PACLITAX DRUG Active Other 0 MD EL INGREDI 5-24 [place] 00:00: n 00 PACLITAX DRUG Active Other 2021-0 MD EL INGREDI 5-24 [place]o 00:00: n 00 PACLITAX DRUG Active Other 2021-0 MD EL INGREDI 5-24 [place]o 00:00: n 00 PACLITAX DRUG Active Other 0 MD EL INGREDI 5-24 Anderso 00:00: n 00 PACLITAX DRUG Active Other 0 MD EL INGREDI 5-24 [place] 00:00: n 00 PACLITAX DRUG Active Other 2021-0 MD EL INGREDI 5-24 [place]o 00:00: n 00 PACLITAX DRUG Active Other 2022-0 MD EL INGREDI 5-24 [place] 00:00: n 00 PACLITAX DRUG Active Other 2021-0 MD EL INGREDI 5-24 [place]o 00:00: n 00 PACLITAX DRUG Active Other 2-0 MD EL INGREDI 5-24 [place]o 00:00: n 00 PACLITAX DRUG Active Other 2021-0 MD EL INGREDI 5-24 [place]o 00:00: n 00 PACLITAX DRUG Active Other 2021-0 MD EL INGREDI 5-24 [place]o 00:00: n 00 PACLITAX DRUG Active Other 2021-0 MD EL INGREDI 5-24 Anderso 00:00: n 00 PACLITAX DRUG Active Other 2021-0 MD EL INGREDI 5-24 [place]o 00:00: n 00 PACLITAX DRUG Active Other 2021-0 MD EL INGREDI 5-24 [place]o 00:00: n 00 PACLITAX DRUG Active Other 2021-0 MD EL INGREDI 5-24 [place]o 00:00: n 00 PACLITAX DRUG Active Other 2021-0 MD EL INGREDI 5-24 Anderso 00:00: n 00 PACLITAX DRUG Active Other 2021-0 MD EL INGREDI 5-24 Anderso 00:00: n 00 PACLITAX DRUG Active Other 2021-0 MD EL INGREDI 5-24 Anderso 00:00: n 00 PACLITAX DRUG Active Other 2021-0 MD EL INGREDI 5-24 Anderso 00:00: n 00 PACLITAX DRUG Active Other 2021-0 MD EL INGREDI 5-24 [place]o 00:00: n 00 PACLITAX DRUG Active Other 2021-0 MD EL INGREDI 5-24 [place]o 00:00: n 00 PACLITAX DRUG Active Other 2021-0 MD EL INGREDI 5-24 [place]o 00:00: n 00 PACLITAX DRUG Active Other 2021-0 MD EL INGREDI 5-24 [place]o 00:00: n 00 PACLITAX DRUG Active Other 2-0 MD EL INGREDI 5-24 [place]o 00:00: n 00 PACLITAX DRUG Active Other 2-0 MD EL INGREDI 5-24 [place]o 00:00: n 00 PACLITAX DRUG Active Other 2022-0 MD EL INGREDI 5-24 [place]o 00:00: n 00 PACLITAX DRUG Active Other 2021-0 MD EL INGREDI 5-24 [place]o 00:00: n 00 PACLITAX DRUG Active Other 2021-0 MD EL INGREDI 5-24 [place]o 00:00: n 00 PACLITAX DRUG Active Other 2021-0 MD EL INGREDI 5-24 [place]o 00:00: n 00 PACLITAX DRUG Active Other 2021-0 MD EL INGREDI 5-24 [place]o 00:00: n 00 PACLITAX DRUG Active Other 2021-0 MD EL INGREDI 5-24 Anderso 00:00: n 00 PACLITAX DRUG Active Other 2021-0 MD EL INGREDI 5-24 [place]o 00:00: n 00 PACLITAX DRUG Active Other 2021-0 MD EL INGREDI 5-24 [place]o 00:00: n 00 PACLITAX DRUG Active Other 2021-0 MD EL INGREDI 5-24 [place]o 00:00: n 00 PACLITAX DRUG Active Other 2021-0 MD EL INGREDI 5-24 [place]o 00:00: n 00 PACLITAX DRUG Active Other 2021-0 MD EL INGREDI 5-24 [place]o 00:00: n 00 PACLITAX DRUG Active Other 2021-0 MD EL INGREDI 5-24 [place]o 00:00: n 00 PACLITAX DRUG Active Other 2021-0 MD EL INGREDI 5-24 [place]o 00:00: n 00 PACLITAX DRUG Active Other 2021-0 MD EL INGREDI 5-24 [place]o 00:00: n 00 PACLITAX DRUG Active Other 2021-0 MD EL INGREDI 5-24 [place]o 00:00: n 00 PACLITAX DRUG Active Other 2021-0 MD EL INGREDI 5-24 [place]o 00:00: n 00 PACLITAX DRUG Active Other 2021-0 MD EL INGREDI 5-24 Anderso 00:00: n 00 PACLITAX DRUG Active Other 2-0 MD EL INGREDI 5-24 [place]o 00:00: n 00 PACLITAX DRUG Active Other 2-0 MD EL INGREDI 5-24 Anderso 00:00: n 00 PACLITAX DRUG Active Other 2-0 MD EL INGREDI 5-24 Anderso 00:00: n 00 PACLITAX DRUG Active Other 2021-0 MD EL INGREDI 5-24 Anderso 00:00: n 00 PACLITAX DRUG Active Other 2021-0 MD EL INGREDI 5-24 [place]o 00:00: n 00 PACLITAX DRUG Active Other 2021-0 MD EL INGREDI 5-24 [place]o 00:00: n 00 PACLITAX DRUG Active Other 2021-0 MD EL INGREDI 5-24 Anderso 00:00: n 00 PACLITAX DRUG Active Other 2021-0 MD EL INGREDI 5-24 Anderso 00:00: n 00 PACLITAX DRUG Active Other 2021-0 MD EL INGREDI 5-24 Anderso 00:00: n 00 PACLITAX DRUG Active Other 2021-0 MD EL INGREDI 5-24 [place]o 00:00: n 00 PACLITAX DRUG Active Other 2021-0 MD EL INGREDI 5-24 Anderso 00:00: n 00 PACLITAX DRUG Active Other 2021-0 MD EL INGREDI 5-24 Anderso 00:00: n 00 PACLITAX DRUG Active Other 2021-0 MD EL INGREDI 5-24 Anderso 00:00: n 00 PACLITAX DRUG Active Other 2021-0 MD EL INGREDI 5-24 Anderso 00:00: n 00 PACLITAX DRUG Active Other 2021-0 MD EL INGREDI 5-24 Anderso 00:00: n 00 PACLITAX DRUG Active Other 2021-0 MD EL INGREDI 5-24 Anderso 00:00: n 00 PACLITAX DRUG Active Other 2021-0 MD EL INGREDI 5-24 Anderso 00:00: n 00 PACLITAX DRUG Active Other 2021-0 MD EL INGREDI 5-24 [place]o 00:00: n 00 PACLITAX DRUG Active Other 2021-0 MD EL INGREDI 5-24 Anderso 00:00: n 00 Lidocain Propensi Active Makes Univer s e ty to 10-27 hands ity of adverse 00:00: itch few [place] reaction 00 days MD s after Anderso injection n [facility] LIDOCAIN DRUG Active 0 MD E INGREDI 10-27 Anderso 00:00: n 00 LIDOCAIN DRUG Active 2022-0 MD E INGREDI 5-06 Anderso 00:00: n 00 LIDOCAIN DRUG Active 2022-0 MD E INGREDI 5-06 [place]o 00:00: n 00 LIDOCAIN DRUG Active 2022-0 MD E INGREDI 5-06 [place]o 00:00: n 00 LIDOCAIN DRUG Active 2022-0 MD E INGREDI 5-06 [place]o 00:00: n 00 LIDOCAIN DRUG Active 2022-0 MD E INGREDI 5-06 [place]o 00:00: n 00 LIDOCAIN DRUG Active 2022-0 MD E INGREDI 5-06 [place]o 00:00: n 00 LIDOCAIN DRUG Active 2022-0 MD E INGREDI 5-06 [place]o 00:00: n 00 LIDOCAIN DRUG Active 2022-0 MD E INGREDI 5-06 [place]o 00:00: n 00 LIDOCAIN DRUG Active 2022-0 MD E INGREDI 5-06 [place]o 00:00: n 00 LIDOCAIN DRUG Active 2022-0 MD E INGREDI 5-06 [place]o 00:00: n 00 LIDOCAIN DRUG Active 2022-0 MD E INGREDI 5-06 [place]o 00:00: n 00 LIDOCAIN DRUG Active 2022-0 MD E INGREDI 5-06 [place]o 00:00: n 00 LIDOCAIN DRUG Active 2022-0 MD E INGREDI 5-06 [place]o 00:00: n 00 LIDOCAIN DRUG Active 2022-0 MD E INGREDI 5-06 [place]o 00:00: n 00 LIDOCAIN DRUG Active 2022-0 MD E INGREDI 5-06 [place] 00:00: n 00 LIDOCAIN DRUG Active 2022-0 MD E INGREDI 5-06 [place]o 00:00: n 00 LIDOCAIN DRUG Active 2022-0 MD E INGREDI 5-06 [place]o 00:00: n 00 LIDOCAIN DRUG Active 2022-0 MD E INGREDI 5-06 [place]o 00:00: n 00 LIDOCAIN DRUG Active 2022-0 MD E INGREDI 5-06 [place]o 00:00: n 00 LIDOCAIN DRUG Active 2022-0 MD E INGREDI 5-06 [place]o 00:00: n 00 LIDOCAIN DRUG Active 2022-0 MD E INGREDI 5-06 [place]o 00:00: n 00 LIDOCAIN DRUG Active 2022-0 MD E INGREDI 5-06 [place]o 00:00: n 00 LIDOCAIN DRUG Active 2022-0 MD E INGREDI 5-06 Anderso 00:00: n 00 LIDOCAIN DRUG Active 2022-0 MD E INGREDI 5-06 [place]o 00:00: n 00 LIDOCAIN DRUG Active 2022-0 MD E INGREDI 5-06 Anderso 00:00: n 00 LIDOCAIN DRUG Active 2022-0 MD E INGREDI 5-06 Anderso 00:00: n 00 LIDOCAIN DRUG Active 2022-0 MD E INGREDI 5-06 Anderso 00:00: n 00 LIDOCAIN DRUG Active 2022-0 MD E INGREDI 5-06 [place]o 00:00: n 00 LIDOCAIN DRUG Active 2022-0 MD E INGREDI 5-06 Anderso 00:00: n 00 LIDOCAIN DRUG Active 2022-0 MD E INGREDI 5-06 [place]o 00:00: n 00 LIDOCAIN DRUG Active 2022-0 MD E INGREDI 5-06 [place]o 00:00: n 00 LIDOCAIN DRUG Active 2022-0 MD E INGREDI 5-06 Anderso 00:00: n 00 LIDOCAIN DRUG Active 2022-0 MD E INGREDI 5-06 Anderso 00:00: n 00 LIDOCAIN DRUG Active 2022-0 MD E INGREDI 5-06 Anderso 00:00: n 00 LIDOCAIN DRUG Active 2022-0 MD E INGREDI 5-06 [place]o 00:00: n 00 LIDOCAIN DRUG Active 2022-0 MD E INGREDI 5-06 Anderso 00:00: n 00 LIDOCAIN DRUG Active 2022-0 MD E INGREDI 5-06 [place]o 00:00: n 00 LIDOCAIN DRUG Active 2022-0 MD E INGREDI 5-06 Anderso 00:00: n 00 LIDOCAIN DRUG Active 2022-0 MD E INGREDI 5-06 Anderso 00:00: n 00 LIDOCAIN DRUG Active 2022-0 MD E INGREDI 5-06 Anderso 00:00: n 00 LIDOCAIN DRUG Active 2022-0 MD E INGREDI 5-06 Anderso 00:00: n 00 LIDOCAIN DRUG Active 2022-0 MD E INGREDI 5-06 Anderso 00:00: n 00 LIDOCAIN DRUG Active 2022-0 MD E INGREDI 5-06 [place]o 00:00: n 00 LIDOCAIN DRUG Active 2022-0 MD E INGREDI 5-06 [place]o 00:00: n 00 LIDOCAIN DRUG Active 2022-0 MD E INGREDI 5-06 Anderso 00:00: n 00 LIDOCAIN DRUG Active 2022-0 MD E INGREDI 5-06 [place]o 00:00: n 00 LIDOCAIN DRUG Active 2022-0 MD E INGREDI 5-06 Anderso 00:00: n 00 LIDOCAIN DRUG Active 2022-0 MD E INGREDI 5-06 [place]o 00:00: n 00 LIDOCAIN DRUG Active 2022-0 MD E INGREDI 5-06 Anderso 00:00: n 00 LIDOCAIN DRUG Active 2022-0 MD E INGREDI 5-06 [place]o 00:00: n 00 LIDOCAIN DRUG Active 2022-0 MD E INGREDI 5-06 Anderso 00:00: n 00 LIDOCAIN DRUG Active 2022-0 MD E INGREDI 5-06 Anderso 00:00: n 00 LIDOCAIN DRUG Active 2022-0 MD E INGREDI 5-06 [place]o 00:00: n 00 LIDOCAIN DRUG Active 2022-0 MD E INGREDI 5-06 Anderso 00:00: n 00 LIDOCAIN DRUG Active 2022-0 MD E INGREDI 5-06 Anderso 00:00: n 00 LIDOCAIN DRUG Active 2022-0 MD E INGREDI 5-06 [place]o 00:00: n 00 LIDOCAIN DRUG Active 2022-0 MD E INGREDI 5-06 [place]o 00:00: n 00 LIDOCAIN DRUG Active 2022-0 MD E INGREDI 5-06 Anderso 00:00: n 00 LIDOCAIN DRUG Active 2022-0 MD E INGREDI 5-06 [place]o 00:00: n 00 LIDOCAIN DRUG Active 2022-0 MD E INGREDI 5-06 Anderso 00:00: n 00 LIDOCAIN DRUG Active 2022-0 E INGREDI 10-27 Anderso 00:00: n 00 LIDOCAIN DRUG Active 2021-0 E INGREDI 10-27 Anderso 00:00: n 00 LIDOCAIN DRUG Active 2021-0 E INGREDI 10-27 Anderso 00:00: n 00 LIDOCAIN DRUG Active 2021-0 E INGREDI 10-27 Anderso 00:00: n 00 No Known DA Active U [facility] Drug 3-18 Allergie 00:00: s 00 Family History Family Member Diagnosis Comments Start Date Stop Date Source Maternal cousin No Known Problems Un iversity of [facility] Natural sister Cervical cancer Unive rsity of [facility] Natural sister Colon cancer Universi ty [facility] Social History Social Habit Start Date Stop Date Quantity Comments Source Exposure to 2022-02-24 2022-03-06 [facility] 13:26:00 Julee faust (event) Cancer [place] Tobacco use and 2021-12-26 2021-12-26 Smokeless tobacco Un iversity of exposure 00:00:00 00:00:00 non-user Julee faust [facility] Alcohol intake 2021-12-26 2021-12-26 Lifetime University of 00:00:00 00:00:00 non-drinker Julee feliciano (finding) [facility] Center Sex Ass[birth year] Universit y of 00:00:00 00:00:00 Julee faust [facility] Smoking Status Start Date Stop Date Source Never smoked tobacco [facility] Medications Ordered Filled Start Stop Current Ordering Indication Dosage Frequency Signature Comments Components Source Medication Medication Date Date Medication? Clinician (SIG) Name Name aspirin 81 Yes 81mg Chew 81 mg U nivers mg chewable 9-13 daily. ity of tablet 13:35: [facility]e [facility] omega-3 Yes 1000mg Take 1,000 Un michelle fatty 9-13 mg by ity of acids/fish 13:35: mouth. [place] oil (fish 41 oil-omega-3 Andcoltono fatty n acids) Cancer 300-1,000 Center mg capsule cholecalcif Yes 1{capsu Take 1 U nivers adeel, 03-06 le} capsule by ity of vitamin D3, 13:35: mouth [place] 100 mcg 41 daily. (4,000 Anderso unit) cap n [facility] losartan-hy Yes 1{tbl} Take 1 Un michelle drochloroth 03-06 tablet by ity of iazide 13:35: mouth [place] (HYZAAR) 41 daily. 100-25 mg Anderso per tablet n [facility] acetaminoph Yes Take by Uni vers en 03-06 mouth as ity of (TYLENOL) 13:35: needed. [place] 500 mg 41 MD tablet Anderso n [facility] cyanocobala Yes Take by Uni vers min, 03-06 mouth. ity of vitamin 13:35: [place] B-12, 41 MD (VITAMIN Anderso B-12 ORAL) n [facility] ondansetron Yes Infiltratin 8mg Take 1 Univers (ZOFRAN) 8 9-13 g ductal tablet (8 ity of mg tablet 00:00: carcinoma mg) by [place] 00 of central mouth MD portion of every 8 Shaheen o right (eight) n female hours as Cancer breast needed for Center nausea. ondansetron Yes Infiltratin 8mg Take 1 Univers (ZOFRAN) 8 8-21 g duct tablet (8 it y of mg tablet 00:00: carcinoma mg) by [place] 00 of right mouth MD female every 12 Anderso breast (twelve) n hours as Cancer needed for Center nausea or vomiting. Take scheduled for three days after chemothera py then, PRN. prochlorper Yes Infiltratin 10mg Take 1 Univers azine 8-21 g duct tablet (10 ity of (COMPAZINE) 00:00: carcinoma mg) by [place] 10 mg 00 of right mouth MD tablet female every 6 Anderso breast (six) n hours as Cancer needed for Center nausea or vomiting (breakthro ugh). traMADol Yes Infiltratin 50mg Take 1 Univers (Ultram) 50 8-21 g duct tablet (50 ity of mg tablet 00:00: carcinoma mg) by [place] 00 of right mouth MD female every 6 Anders[facility] breast (six) n hours as Cancer needed for Center moderate pain (headache) . aspirin 81 Yes 81mg Chew 81 mg U nivers mg chewable 6-14 daily. ity of tablet 11:33: [place] 50 MD [facility] omega-3 Yes 1000mg Take 1,000 Un michelle fatty 6-14 mg by ity of acids/fish 11:33: mouth. [place] oil (fish 50 MD oil-omega-3 Anderso fatty n acids) Cancer 300-1,000 Center mg capsule cholecalcif Yes 1{capsu Take 1 U nivers adeel, 6-14 le} capsule by ity of vitamin D3, 11:33: mouth [place] 100 mcg 50 daily. (4,000 Anderso unit) staci n Cancer Center losartan-hy Yes 1{tbl} Take 1 Un michelle drochloroth 6-14 tablet by ity of iazide 11:33: mouth [place] (HYZAAR) 50 daily. 100-25 mg Anderso per tablet n Cancer [place] acetaminoph Yes Take by Uni vers en 6-14 mouth as ity of (TYLENOL) 11:33: needed. J[place] 500 mg 50 MD tablet [facility] n [facility] cyanocobala Yes Take by Uni vers min, 6-14 mouth. ity of vitamin 11:33: [place] B-12, 50 (VITAMIN Anderso B-12 ORAL) n Cancer Center hydroxyzine Yes Infiltratin 25mg Take 1 Univers HCl 6-14 g duct tablet (25 ity of (ATARAX) 25 00:00: carcinoma mg) by [place] mg tablet 00 of right mouth female every 8 Anderso breast (eight) n hours as Cancer needed for Center itching. hydroxyzine Yes Infiltratin 25mg Take 1 Univers HCl 6-14 g duct tablet (25 ity of (ATARAX) 25 00:00: carcinoma mg) by [place] mg tablet 00 of right mouth female every 8 Anderso breast (eight) n hours as Cancer needed for Center itching. triamcinolo Yes Infiltratin Apply Univers ne 6-03 g duct topically ity of (KENALOG) 00:00: carcinoma to [place] as 0.1% cream 00 of right affected M D female area(s) Anderso breast twice n daily. Cancer Center triamrenzoolo Yes Infiltratin Apply Univers ne 6-03 g duct topically ity of (KENALOG) 00:00: carcinoma to [place] as 0.1% cream 00 of right affected M D female area(s) Anderso breast twice n daily. Cancer [place] lidocaine-p Yes Infiltratin Apply Univers rilocaine 5-24 g duct topically ity of (EMLA) 00:00: carcinoma to [place] 2.5-2.5% 00 of right affected MD cream female area(s) as Shaheen o breast needed for n mild pain. [facility] lidocaine-p Yes Infiltratin Apply Univers rilocaine 5-24 g duct topically ity of (EMLA) 00:00: carcinoma to [place] 2.5-2.5% 00 of right affected MD cream female area(s) as Shaheen o breast needed for n mild pain. Cancer [place] prochlorper Yes Infiltratin 10mg Take 1 Univers azine 5-23 g duct tablet (10 ity of (Compazine) 00:00: carcinoma mg) by [place] 10 mg 00 of right mouth MD tablet female every 6 Anderso breast (six) n hours as Cancer needed for Center nausea or vomiting. traMADol Yes Infiltratin 50mg Take 1 Univers (Ultram) 50 5-23 g duct tablet (50 ity of mg tablet 00:00: carcinoma mg) by [place] 00 of right mouth MD female every 6 Anders[place] breast (six) n hours as Cancer needed for Center moderate pain (headache) . prochlorper Yes Infiltratin 10mg Take 1 Univers azine 5-23 g duct tablet (10 ity of (Compazine) 00:00: carcinoma mg) by [place] 10 mg 00 of right mouth MD tablet female every 6 Anderso breast (six) n hours as Cancer needed for Center nausea or vomiting. traMADol Yes Infiltratin 50mg Take 1 Univers (Ultram) 50 5-23 g duct tablet (50 ity of mg tablet 00:00: carcinoma mg) by [place] 00 of right mouth MD female every 6 Anderso breast (six) n hours as Cancer needed for Center moderate pain (headache) . ACETAMINOPH Yes 1-2 pills U nivers EN 500 MG 4-20 a day ity of ORAL TAB 10:41: [place] 41 Medical Branch GLUCOSAMINE Yes 1-2 pills U nivers &CHONDROIT- 4-20 a day ity of MV-MIN3 10:41: [place] [id number] Medical 0.5 MG ORAL Branch TAB ASPIRIN 81 Yes 1 PO daily U nivers MG ORAL 4-20 ity of CHEW 10:41: [place] 41 Medical Branch cholecalcif Yes 1{capsu Take 1 U nivers adeel, 4-20 le} capsule by ity of vitamin D3, 10:41: mouth [place] (VITAMIN 41 daily. Medical D3) 4,000 Branch unit Cap omega-3 Yes 1000mg Take 1,000 Un michelle fatty acids 4-20 mg by ity of (FISH OIL) 10:41: mouth [place] capsule 41 daily. Medical Branch HYDROcodone Yes [id number] 1{tbl} Take 1 Un michelle -acetaminop 4-12 tablet by ity of hen (NORCO) 00:00: mouth [place] 5-325 mg 00 every 6 Medical tablet (six) Branch hours as needed for Pain (scale 7-10). Indication s: acute pain albuterol Yes INHALE 1 Univ ers (VENTOLIN 3-29 PUFF EVERY ity of HFA,PROAIR 00:00: 6-8 HOURS [place] HFA) 90 00 NEEDED MD mcg/puff [facility] inhaler n Cancer Center albuterol Yes INHALE 1 Univ ers (VENTOLIN 3-29 PUFF EVERY ity of HFA,PROAIR 00:00: 6-8 HOURS [place] HFA) 90 00 NEEDED MD mcg/puff [place] inhaler n Cancer Center guaiFENesin Yes [id number] 600mg Take 1 Univers (MUCINEX) 3-28 tablet by ity o f 600 mg 00:00: mouth [place] tablet 00 every 12 Medical (twelve) Branch hours. cetirizine Yes [id number] 10mg Take 1 U nivers (ZYRTEC) 10 3-28 tablet by ity of mg tablet 00:00: mouth [place] 00 daily. Medical Branch nitroglycer 2020-[address] 0[address]4 U nivers in 0-22 mg under ity of (NITROSTAT) 00:00: the [place] 0.4 mg [address] 00 tongue. MD yepez [facility] nitroglycer 2020-[address] 0.4 U nivers in 0-22 mg under ity of (NITROSTAT) 00:00: the [place] 0.4 mg SL 00 tongue. MD yepez [facility] nitroglycer 2020-[address] 1 Uni vers in 0.4 mg 0-22 tablet ity of sublingual 00:00: under the [place] tablet 00 tongue Medical every 5 Branch (five) minutes as needed for Chest pain. atorvastati Yes 20mg Take 20 mg Univers n (LIPITOR) 9-08 by mouth ity of 20 mg 00:00: at [place] tablet 00 bedtime. MD Yoselin arizmendi [facility] atorvastati Yes 20mg Take 20 mg Univers n (LIPITOR) 9-08 by mouth ity of 20 mg 00:00: at [place] tablet 00 bedtime. MD [facility] amLODIPine Yes [id number] 5mg Take 1 U nivers 5 mg tablet 9-08 tablet by ity of 00:00: mouth [place] 00 daily. Medical Branch atorvastati Yes [id number] 20mg Take 1 Univers n 20 mg 9-08 tablet by ity of tablet 00:00: mouth [place] 00 daily. Medical Branch hydroCHLORO 2021- No [id number] 25mg Take 1 Univers thiazide 25 9-08 04-20 tablet by it y of mg tablet 00:00: 00:00 mouth [place] 00 :00 daily. Medical Branch methylPREDN Yes 84mg Take 21 Uni vers ISolone 4-05 tablets by ity of (MEDROL, 00:00: mouth [place] LEIGH,) 4 mg 00 SEE-INSTRU Med ical tablets CTIONS. Branch follow package directions diclofenac Yes 75mg Take 1 Unive rs 75 mg EC 4-05 tablet by ity of tablet 00:00: mouth 2 00 (two) Medical times Branch daily with meals. acetaminoph Yes 1 - 2 by Brooks martinez en-codeine 1-11 mouth ity of (TYLENOL-CO 00:00: every 4-6 [place] DEINE #3) 00 hours as Medica l 300-30 mg needed for Bran ch tablet pain traMADOL 2015-0 Yes Univers (ULTRAM) 50 9-02 ity of mg tablet 00:00: [place] [address] Medical Branch Vital Signs Vital Name Observation Time Observation Value Comments Source Systolic blood 2021-10-10 19:49:00 142 mm[Hg] Univer sity of pressure [facility] Diastolic blood 2021-10-10 19:49:00 82 mm[Hg] Unive rsity of pressure [facility] Heart rate 2021-10-10 19:47:00 60 /min Universi ty [facility] Respiratory rate 2021-10-10 19:47:00 18 /min [facility] Body height 2021-10-10 19:47:00 172.7 cm Universi ty [facility] Body weight 2021-10-10 19:47:00 102.059 kg Universi ty [facility] BMI 2021-10-10 19:47:00 34.21 kg/m2 Universi ty [facility] Oxygen saturation in 2021-10-10 19:47:00 98 /min [facility] Arterial blood by [facility] Pulse oximetry Branch Systolic blood 2022-03-06 19:50:00 116 mm[Hg] Univer sity of pressure [facility] Diastolic blood 2022-03-06 19:50:00 77 mm[Hg] Unive rsity of pressure [facility] Heart rate 2022-03-06 19:50:00 67 /min [facility]i ty [facility] [place] MD [facility] Body temperature 2022-03-06 19:50:00 36.67 [place] Univ ersity of [facility] Respiratory rate 2022-03-06 19:50:00 18 /min Univ ersity of [facility] Body weight 2022-03-06 18:29:00 97 kg Universi ty [facility] BMI 2022-03-06 18:29:00 34.78 kg/m2 Universi ty of [facility] Body height 2022-02-13 19:23:00 167 cm Universi ty of [facility] Systolic blood 2022-01-02 20:45:00 111 mm[Hg] Univer sity of pressure [facility] Diastolic blood 2022-01-02 20:45:00 70 mm[Hg] Unive rsity of pressure [facility] Heart rate 2022-01-02 20:45:00 62 /min Universi ty of [facility] Body temperature 2022-01-02 19:17:00 36.5 [place] Univ ersity of [facility] Respiratory rate 2022-01-02 19:17:00 17 /min Univ ersity [facility] Body weight 2022-01-02 19:17:00 98.3 kg Universi ty of [facility] BMI 2022-01-02 19:17:00 34.22 kg/m2 Universi ty of [facility] Oxygen saturation in 2021-11-21 19:08:30 99 /min University of Arterial blood by Julee muse Pulse oximetry [facility] Body height 2021-11-14 18:40:00 169.5 cm Universi ty of [facility] 02 Sat by Pulse 2020-09-12 13:40:28 100 /min Oximetry BMI more than 35 2020-09-12 13:40:28 N Body Mass Index 2020-09-12 13:40:28 34.7 Height 2020-09-12 13:40:28 172.72\\S\\68 Pulse Rate 2020-09-12 13:40:28 60 /min Pulse Strength 2020-09-12 13:40:28 Normal /min Pulse Rhythm 2020-09-12 13:40:28 Regular /min Respiratory Rate 2020-09-12 13:40:28 18 /min Weight 2020-09-12 13:40:28 580480.06\\S\\3648 Weight Measurement 2020-09-12 13:40:28 Standing Scale Method 02 Sat by Pulse 2020-09-10 00:09:06 100 /min Oximetry BMI more than 35 2020-09-10 00:09:06 N Body Mass Index 2020-09-10 00:09:06 34.7 Height 2020-09-10 00:09:06 172.72\\S\\68 Pulse Rate 2020-09-10 00:09:06 60 /min Pulse Strength 2020-09-10 00:09:06 Normal /min Pulse Rhythm 2020-09-10 00:09:06 Regular /min Respiratory Rate 2020-09-10 00:09:06 18 /min Weight 2020-09-10 00:09:06 037216.06\\S\\3648 Weight Measurement 2020-09-10 00:09:06 Standing Scale Method 02 Sat by Pulse 2020-09-10 00:09:05 100 /min Oximetry BMI more than 35 2020-09-10 00:09:05 N Body Mass Index 2020-09-10 00:09:05 34.7 Height 2020-09-10 00:09:05 172.72\\S\\68 Pulse Rate 2020-09-10 00:09:05 60 /min Pulse Strength 2020-09-10 00:09:05 Normal /min Pulse Rhythm 2020-09-10 00:09:05 Regular /min Respiratory Rate 2020-09-10 00:09:05 18 /min Weight 2020-09-10 00:09:05 675723.06\\S\\3648 Weight Measurement 2020-09-10 00:09:05 Standing Scale Method 02 Sat by Pulse 2020-09-09 15:07:53 100 /min Oximetry BMI more than 35 2020-09-09 15:07:53 N Body Mass Index 2020-09-09 15:07:53 34.7 Height 2020-09-09 15:07:53 172.72\\S\\68 Pulse Rate 2020-09-09 15:07:53 60 /min Pulse Strength 2020-09-09 15:07:53 Normal /min Pulse Rhythm 2020-09-09 15:07:53 Regular /min Respiratory Rate 2020-09-09 15:07:53 18 /min Weight 2020-09-09 15:07:53 722893.06\\S\\3648 Weight Measurement 2020-09-09 15:07:53 Standing Scale Method HEIGHT 2020-09-09 09:58:00 172.72 cm 02 Sat by Pulse 2020-09-09 09:56:28 100 /min Oximetry BMI more than 35 2020-09-09 09:56:28 N Body Mass Index 2020-09-09 09:56:28 34.7 Height 2020-09-09 09:56:28 172.72\\S\\68 Pulse Rate 2020-09-09 09:56:28 55 /min Pulse Strength 2020-09-09 09:56:28 Normal /min Pulse Rhythm 2020-09-09 09:56:28 Regular /min Respiratory Rate 2020-09-09 09:56:28 18 /min Weight 2020-09-09 09:56:28 253896.06\\S\\3648 Weight Measurement 2020-09-09 09:56:28 Standing Scale Method WEIGHT 2020-09-09 09:40:00 103.09199 kg HEIGHT 2020-09-09 09:40:00 172.72 cm Body Mass Index 2020-09-09 06:42:15 0293642.4 Height 2020-09-09 06:42:15 1\\S\\0.39 Weight 2020-09-09 06:42:15 986929.206\\S\\3760 Body Mass Index 2020-09-08 10:27:34 9903662.4 Height 2020-09-08 10:27:34 1\\S\\0.39 Weight 2020-09-08 10:27:34 166037.206\\S\\3760 WEIGHT 2020-09-08 10:27:00 106.703533 kg HEIGHT 2020-09-08 10:27:00 1 cm Procedures Procedure Date / Time Performing Clinician Source Performed COMPLETE BLOOD COUNT W/ 2022-03-06 18:25:18 Danisha Arias [facility] DIFFERENTIAL [facility] Results CBC 2022-03-06 18:25:18 Danisha Arias [facility] MANUAL DIFFERENTIAL 2022-03-06 18:25:18 Danisha Arias [facility] XR HUMERUS 2 VIEWS MINIMUM 2022-02-20 18:25:20 Risa Aguilera [facility] RIGHT [facility] US ARM VENOUS DOPPLER 2022-02-20 18:13:00 Risa Aguileraer sit [facility] [place] RIGHT [facility] COMPLETE BLOOD COUNT W/ 2022-02-13 18:00:[address] [facility] BLOOD UREA NITROGEN 2022-02-13 18:00:00 Risa Aguilera [facility] SERUM CREATININE 2022-02-13 18:00:00 Risa Aguilera [facility] ASPARTATE AMINOTRANSFERASE 2022-02-13 18:00:00 [facility] ALANINE AMINOTRANSFERASE 2022-02-13 18:00:00 Risa Aguilera [facility] ALKALINE PHOSPHATASE 2022-02-13 18:00:00 Risa Aguilera [facility] BILIRUBIN TOTAL 2022-02-13 18:00:00 Risa Aguilera [facility] Results CBC 2022-02-13 18:00:00 Risa Aguilera [facility] MANUAL DIFFERENTIAL 2022-02-13 18:00:00 Risa Aguilera [facility] SERUM CREATININE 2022-02-13 18:00:00 Risa Aguilera [facility] .GLOMERULAR FILTRATION 2022-02-13 18:00:00 Risa [facility]era [facility] RATE [facility] US BREAST COMPLETE RIGHT 2022-02-09 14:54:00 Brooks [facility] CHEST 2022-02-09 14:54:00 Maylin [facility] Center COMPLETE BLOOD COUNT W/ 2022-02-06 19:16:25 Risa Aguilera [facility] DIFFERENTIAL [facility] Results CBC 2022-02-06 19:16:25 Risa Aguilera [facility] MANUAL DIFFERENTIAL 2022-02-06 19:16:25 Risa Aguilera [facility] COMPLETE BLOOD COUNT W/ 2022-01-30 19:10:00 Risa Aguilera [facility] [place] ersity of [place] DIFFERENTIAL [facility] Can er Center Results CBC 2022-01-30 19:10:00 Risa Aguilera [facility] Can er Center MANUAL DIFFERENTIAL 2022-01-30 19:10:00 Risa Aguilera [facility] [place] [facility] ty of [facility] er Center COMPLETE BLOOD COUNT W/ 2022-01-22 15:43:00 Gil Aguirre [facility] [place] [facility] [place] DIFFERENTIAL [facility] Can er Center Results CBC 2022-01-22 15:43:00 Gil Aguirre [facility] Can er Center MANUAL DIFFERENTIAL 2022-01-22 15:43:00 Gil Aguirre [facility] [place] [facility] ty of [facility] er Center COMPLETE BLOOD COUNT W/ 2022-01-15 14:40:18 Gil Aguirre [facility] [place] [facility] [place] DIFFERENTIAL [facility] Can er Center Results CBC 2022-01-15 14:40:18 Gil Aguirre Boyd o [facility] er Center MANUAL DIFFERENTIAL 2022-01-15 14:40:18 Gil Aguirre [facility] [place] [facility] ty of [facility] COMPLETE BLOOD COUNT W/ 2022-01-02 18:18:24 Gil Aguirre [facility] [place] [facility] [place] DIFFERENTIAL [facility] er Center Results CBC 2022-01-02 18:18:24 Gil Aguirre [facility] Can er Center MANUAL DIFFERENTIAL 2022-01-02 18:18:24 Gil Aguirre [facility] [place] [facility] ty of [facility] er Center COMPLETE BLOOD COUNT W/ 2021-12-26 15:11:00 Gil Aguirre [facility] [place] ersity of [place] DIFFERENTIAL [facility] er Center ASPARTATE AMINOTRANSFERASE 2021-12-26 15:11:00 [facility] er Center ALANINE AMINOTRANSFERASE 2021-12-26 15:11:00 Gil Aguirre [facility] er Center ALKALINE PHOSPHATASE 2021-12-26 15:11:00 Gil Aguirre [facility] of [facility] er Center BILIRUBIN TOTAL 2021-12-26 15:11:00 Gil Aguirre [facility] Canc er Center Results CBC 2021-12-26 15:11:00 Giuseppe Aguirrejuana [facility] Canc er Center MANUAL DIFFERENTIAL 2021-12-26 15:11:00 Gil Aguirre [facility] of [place] MD Jamin Canc er Center COMPLETE BLOOD COUNT W/ 2021-12-19 17:56:00 Gil Aguirre [facility] [place] [facility] DI[facility] MD Jamin Canc er Center Results CBC 2021-12-19 17:56:00 Giuseppe Aguirrejuana [facility] Canc er Center MANUAL DIFFERENTIAL 2021-12-19 17:56:00 Gil Aguirre [facility] of [facility] [place] [facility] Can er Center COMPLETE BLOOD COUNT W/ 2021-12-12 19:00:00 Gil Aguirre [facility] [place] [facility] DIFFERENTIAL MD Jamin Canc er Center Results CBC 2021-12-12 19:00:00 Gil Aguirre [facility] Can er Center MANUAL DIFFERENTIAL 2021-12-12 19:00:00 Gil Aguirre [facility] of [facility] [place] [facility] Can er Center COMPLETE BLOOD COUNT W/ 2021-12-05 15:35:00 Gil Aguirre [facility] [place] [facility] DIFFERENTIAL MD Jamin Can er Center Results CBC 2021-12-05 15:35:00 Giuseppe Aguirrejuana [facility] Canc er Center MANUAL DIFFERENTIAL 2021-12-05 15:35:00 Gil Aguirre [facility] of [facility] [place] [facility] Can er Center COMPLETE BLOOD COUNT W/ 2021-11-28 18:03:00 Lynda Barlow [facility] [place] [facility] DIFFERENTIAL MD Jamin Canc er Center Results CBC 2021-11-28 18:03:00 Lynda Barlow [facility] Jamin Canc er Center MANUAL DIFFERENTIAL 2021-11-28 18:03:00 Lynda Barlow [facility] of [facility] [place] [facility] Can er Center COMPLETE BLOOD COUNT W/ 2021-11-21 13:07:00 Lynda Barlow [facility] [place] ersity [facility] [place] DIFFERENTIAL MD Jamin Canc er Center Results CBC 2021-11-21 13:07:00 Lynda Barlow [facility] Canc er Center MANUAL DIFFERENTIAL 2021-11-21 13:07:00 Lynda Barlow [facility] [place] [facility] COMPLETE BLOOD COUNT W/ 2021-11-14 16:55:00 Risa Aguilera [facility] [place] [facility] ASPARTATE AMINOTRANSFERASE 2021-11-14 16:55:00 Risa [facility]ilera [facility] ALANINE AMINOTRANSFERASE 2021-11-14 16:55:00 Risa Aguilera Uni versity [facility] ALKALINE PHOSPHATASE 2021-11-14 16:55:00 Risa Aguilera [facility] [place] [facility] ity [facility] BILIRUBIN TOTAL 2021-11-14 16:55:00 Risa Aguilera [facility] Results CBC 2021-11-14 16:55:00 Risa Aguilera [facility] MANUAL DIFFERENTIAL 2021-11-14 16:55:00 Risa Aguilera [facility] [place] [facility] IR FL PORT PLACEMENT 2021-11-14 14:55:24 Risa Aguilera [facility] [place] [facility] ABDOMEN W WO CONTRAST 2021-11-10 18:38:00 Risa Aguilera [facility] COMPLETE BLOOD COUNT W/ 2021-11-10 16:10:43 Risa Aguilera [facility] [place] [facility]IVE METABOLIC 2021-11-10 16:10:43 Risa Aguilera [facility] [place] [facility] [place] PANEL [facility] CANCER ANTIGEN 15-3 2021-11-10 16:10:43 Risa Aguilera [facility] [place] [facility] PROTHROMBIN TIME 2021-11-10 16:10:43 Sylvester Beverly [facility] GLUCOSE, RANDOM 2021-11-10 16:10:43 [facility] TYPE AND SCREEN 2021-11-10 16:10:43 [facility] Results CBC 2021-11-10 16:10:43 Risa Aguilera [facility] MANUAL DIFFERENTIAL 2021-11-10 16:10:43 Risa Aguilera [facility] BLOOD UREA NITROGEN 2021-11-10 16:10:43 Risa Aguilera [facility] ELECTROLYTE PANEL 2021-11-10 16:10:43 Risa Aguilera [facility] SERUM CREATININE 2021-11-10 16:10:43 Risa Aguilera [facility] .GLOMERULAR FILTRATION 2021-11-10 16:10:43 Risa Aguilera [facility] CALCIUM LEVEL TOTAL 2021-11-10 16:10:43 Risa Aguilera [facility] ALBUMIN LEVEL 2021-11-10 16:10:43 Risa Aguilera [facility] ALKALINE PHOSPHATASE 2021-11-10 16:10:[address] [facility] ALANINE AMINOTRANSFERASE 2021-11-10 16:10:43 Risa Aguilera [facility] ASPARTATE AMINOTRANSFERASE 2021-11-10 16:10:43 Risa Aguilera [facility] TOTAL PROTEIN 2021-11-10 16:10:43 Risa Aguilera [facility] FRACTIONATED BILIRUBIN 2021-11-10 16:10:43 [facility] 2021-11-10 16:10:43 [facility] ANTIBODY SCREEN 2021-11-10 16:10:43 Nazia Boudreaux [facility] CLOT EXPIRATION DATE 2021-11-10 16:10:43 Nazia Boudreaux [facility] TMP INTERPRETATION 2021-11-10 16:10:43 Nazia Boudreaux [facility] ANTIBODY SCREEN NEGATIVE MD [facility] CONFIRM ABORH TYPE 2021-11-10 16:06:54 Risa Aguilera [facility] er Center COVID-19 (SARS-COV-2) 2021-11-10 15:54:00 Nazia Boudreaux [facility] PCR-ASYMPTOMATIC [facility] ECHOCARDIOGRAM 2D COMPLETE 2021-11-03 19:28:49 Misty Cardoza U [facility] EKG, 12-LEAD (SCHEDULED) 2021-11-03 00:00:00 Misty Cardoza Uni [facility] NM BONE SCAN WHOLE BODY 2021-11-02 14:40:00 Maylin, [facility] CT CHEST ABDOMEN PELVIS W 2021-11-02 13:42:00 Steven Carlisle [facility] WO CONTRAST [facility] POC CREATININE 2021-11-02 12:27:00 Maylin, [facility] MAMMO POST PROCEDURE RIGHT 2021-10-26 18:50:35 Maylin, [facility] US BREAST COMPLETE 2021-10-26 18:42:00 Maylin, [facility] BILATERAL [facility] [place] US CHEST 2021-10-26 18:42:00 Maylni, [facility] US HEAD NECK SOFT TISSUE 2021-10-26 18:42:00 Maylin [facility] US GUIDED AXILLARY LYMPH 2021-10-26 18:42:00 Brooks [facility] NODE FNA RIGHT [facility] US GUIDED AXILLARY CLIP 2021-10-26 18:42:00 Maylin, Ev[facility] PLACEMENT RIGHT [facility] CYTOLOGY IMAGE-GUIDED FNA 2021-10-26 17:30:00 Steven Carlisle [facility] INTERPRETATION [facility] MAMMO DIGITAL DIAGNOSTIC 2021-10-26 16:22:00 Maylin, Brooks i[facility]ity [facility] [place] BILATERAL W HOWARD Holguin [facility] PATHOLOGY OUTSIDE 2021-10-03 00:00:00 Michael Tirado [facility] INTERPRETATION [facility] er Center OSI MAMMO BILATERAL 2021-09-06 16:03:00 Kerry Plaza Uni versity of [facility] Plan of Care Planned Activity Planned Date Details Comments Source Future Scheduled 2022-03-13 COVID-19 Vaccination Uni versity of Test 11:54:24 (#1) [code = COVID-19 [facility] [place] [facility] Vaccination (#1)] [facility] [facility] Future Scheduled 2022-01-09 COVID-19 Vaccination Uni versity of Test 07:58:01 (#1) [code = COVID-19 [place] Jamin Vaccination (#1)] Cancer [facility] [facility] Future Appointment 2022-05-24 Kerry Plaza MD, [address] [facility] 07:00:00 [place] [address] [facility] Center Future Appointment 2022-05-24 Kerry Plaza MD, 15[address] [place] of 07:00:00 [place] [address] [facility] Procedure 2022-05-24 SEGMENTAL MASTECTOMY - Unive rsity of 13:00:00 OTHER Julee Jamison [facility] Procedure 2022-05-24 TARGETED AXILLARY NODE Unive rsity of 13:00:00 DISSECTION Julee Jamison [facility] Procedure 2022-05-24 AXILLARY University of 13:00:00 LYMPHADENECTOMY Julee Anderson [facility] Procedure 2022-05-24 REARRANGEMENT OF University of 13:00:00 ADJACENT TISSUE FOR [place] MD [place] REPAIR OF DEFECT OF Cancer C enter TRUNK Procedure 2022-05-24 MASTOPEXY University of 13:00:00 Julee Jamison [facility] Encounters Start End Encounter Admission Attending Care Care Encounter Source Date/Time Date/Time Type Type Clinicians Facility Department ID 2022-02-12 Outpatient BELLA PLAZA [facility] [id number] 14:19:24 KERRY arizmendi 2021-10-26 Outpatient BELLA PARRISH MDA [id number] 09:43:27 PROVIDER Shaheen o n 2021-10-26 Outpatient SYSTEM, MDA MDA [id number] 08:50:15 PROVIDER Shaheen o n 2021-10-26 Outpatient SYSTEM, MDA MDA [id number] MD 08:50:15 PROVIDER Shaheen o n 2021-10-26 Outpatient SYSTEM, MDA MDA [id number] MD 08:50:15 PROVIDER Shaheen o n 2021-10-26 Outpatient SYSTEM, MDA MDA [id number] 08:45:15 PROVIDER Shaheen o n 2021-10-13 Outpatient SYSTEM, MDA MDA [id number] MD 13:22:46 PROVIDER Shaheen o n 2020-09-02 Inpatient Elective Ioana, [facility] [id number] [facility] 09:30:00 [place] [id number] 2022-03-07 2022-03-07 Orders Paola 1.2.840.1 [id number] Univers 00:00:00 00:00:00 Only Chelsie fenton 48782.1.1 ity of 3.412.2.7 [place] .3.743261 .8 [facility] 2022-03-06 2022-03-06 Infusion Danisha Arias 1.2.840.1 [id number] [facility] 15:15:00 17:01:34 Korin Garzon 97450.1.1 ity of 3.412.2.7 [place] .3.434882 .8 [facility] 2022-03-06 2022-03-06 Outpatient OMAR ARIAS MDA MDA [id number] 14:01:48 17:01:34 DANISHA Jamison o ugo 2022-03-06 2022-03-06 Office Danisha Arias 1.2.840.1 [id number] [facility] 14:00:00 14:01:10 Visit Risa Aguilera [id number] ity of 3.412.2.7 [place] .3.409280 .8 [facility] 2022-03-06 2022-03-06 Outpatient OMAR ARIAS MDA MDA [id number] 13:28:40 14:01:10 DANISHA Shaheen o n 2022-03-06 2022-03-06 Outpatient OMAR ARIAS [facility] [id number] 13:07:28 13:25:29 DANISHAEKATERINA Jamison o n 2022-03-06 2022-03-06 Orders Hugo, 1.2.840.1 [id number] Univers 00:00:00 00:00:00 Only Danisha 46577.1.1 ity of 3.412.2.7 [place] .3.858640 MD Retana8 [facility] 2022-03-06 2022-03-06 Orders Uriel Risa 1.2.840.1 [id number] Univers 00:00:00 00:00:00 Only Ute 49277.1.1 ity of 3.412.2.7 [place] .3.498517 MD Maria [facility] 2022-03-06 2022-03-06 Travel 1.2.840.1 [id number] Univers 00:00:00 00:00:00 38253.1.1 350.1.13.41 ity of 3.412.2.7 [place].7.3.698 [place] .3.356540 084.8 MD Retana8 [facility] 2022-02-22 2022-02-22 Orders Paola 1.2.840.1 [id number] Univers 00:00:00 00:00:00 Only Chelsie fenton 74171.1.1 ity of 3.412.2.7 [place] .3.922758 MD Maria [facility] 2022-02-22 2022-02-22 Orders Cachorro, 1.2.840.1 [id number] Univers 00:00:00 00:00:00 Only Kasia 37373.1.1 ity of 3.412.2.7 [place] .3.390784 MD Maria [facility] 2022-02-22 2022-02-22 Orders Paola 1.2.840.1 [id number] Univers 00:00:00 00:00:00 Only Chelsie fenton 95580.1.1 ity of 3.412.2.7 [place] .3.428749 MD Retana8 [facility] 2022-02-20 2022-02-20 Ancillary Risa Aguilera 1.2.840.1 [id number] Univers 13:00:00 14:15:00 Procedure B 19555.1.1 it y of 3.412.2.7 [place] .3.959360 MD Retana8 [facility] 2022-02-20 2022-02-20 Ancillary Risa Aguilera 1.2.840.1 [id number] Univers 13:30:00 13:45:00 Procedure B 21521.1.1 it y of 3.412.2.7 [place] .3.121086 MD Maria [facility] 2022-02-20 2022-02-20 Outpatient RISA CHANG MDA MDA [id number] 12:28:08 12:28:08 [facility] 2022-02-20 2022-02-20 Outpatient RISA CHANG MDA MDA [id number] 12:27:52 12:27:52 [facility] 2022-02-20 2022-02-20 Travel 1.2.840.1 [id number] Univers 00:00:00 00:00:00 [id number] 350.1.13.41 ity of 3.412.2.7 2.[place].7.3.698 [place] .3.739451 084.8 MD Maria [facility] 2022-02-16 2022-02-16 Telephone Hugo, 1.2.840.1 [id number] Univers 00:00:00 00:00:00 Danisha 49146.1.1 ity of 3.412.2.7 [place] .3.946527 MD [facility] 2022-02-15 2022-02-15 Orders Paola 1.2.840.1 [id number] Univers 00:00:00 00:00:00 Only Chelsie fenton 87385.1.1 ity of 3.412.2.7 [place] .3.396865 MD [facility]8 [facility] 2022-02-14 2022-02-14 Consult Anastasia, 1.2.840.1 [id number] Univers 09:00:00 10:10:29 Dianna 53531.1.1 ity of 3.412.2.7 [place] .3.817697 MD [facility] 2022-02-14 2022-02-14 Outpatient OMAR OCONNOR MDA MDA [id number] 08:52:15 10:10:29 DIANNA arizmendi 2022-02-14 2022-02-14 Travel 1.2.840.1 1.2.571.468 6352 [id number] Univers 00:00:00 00:00:00 63392.1.1 350.1.13.41 ity of 3.412.2.7 [place].3.698 [place].0625[place] 084.8 .8 [facility] 2022-02-13 2022-02-13 Infusion Risa Aguilera 1.2.840.1 [id number] [facility] [place] [facility] 15:00:00 17:00:54 Samanta Rolle 12741.1.1 ity of 3.412.2.7 [place] .3.657265 MD Ret[facility]8 [facility] 2022-02-13 2022-02-13 Outpatient RISA CHANG MDA [facility] [id number] 13:55:54 17:00:54 Shaheen arizmendi 2022-02-13 2022-02-13 Office Hugo, 1.2.840.1 [id number] [facility] [place] [facility] 14:00:00 14:15:04 Visit Danisha 49754.1.1 ity of 3.412.2.7 [place] .3.409484 MD [facility]8 [facility] 2022-02-13 2022-02-13 Outpatient OMAR ARIAS MDA MDA [id number] 13:16:58 14:15:04 DANISHA arizmendi 2022-02-13 2022-02-13 Outpatient EL AGUILERARISA PETER [facility] MDA [id number] 13:00:04 13:12:03 Shaheen arizmendi 2022-02-13 2022-02-13 Orders Risa Aguilera 1.2.840.1 [id number] Univers 00:00:00 00:00:00 Only B 37895.1.1 ity of 3.412.2.7 [place] .3.124521 MD [facility]8 [facility] 2022-02-13 2022-02-13 Travel 1.2.840.1 1.2.056.123 5335 [id number] [facility] [place] [facility] 00:00:00 00:00:00 57331.1.1 350.1.13.41 ity of 3.412.2.7 [place].3.698 [place].27[place] 084.8 .8 [facility] 2022-02-09 2022-02-09 [address] 1.2.84 0.1 [id number] [facility] [place] [facility] 13:30:00 13:30:00 Visit Chelsie Carlisle 79516.1.1 ity of 3.412.2.7 [place] .3.443625 MD [facility] 2022-02-09 2022-02-09 Outpatient OMAR PLAZA MDA MDA [id number] 12:26:50 13:21:30 KERRY arizmendi 2022-02-09 2022-02-09 Outpatient MDA MDA [id number] 08:45:17 08:45:17 Shaheen arizmendi 2022-02-09 2022-02-09 Ancillary 1.2.840.1 [id number] [facility] [place] [facility] 08:00:00 08:45:00 Procedure 50885.1.1 it y of 3.412.2.7 [place] .3.125372 MD Ret[facility]8 [facility] 2022-02-09 2022-02-09 Prep for Paola 1.2.840.1 [id number] 1 [id number] [facility] [place] [facility] 00:00:00 00:00:00 Surgery Chelsie fenton 10401.1.1 ity of 3.412.2.7 [place] .3.383206 MD [facility] 2022-02-09 2022-02-09 Travel 1.2.840.1 1.2.349.914 [id number] [facility] [place] [facility] 00:00:00 00:00:00 49516.1.1 350.1.13.41 ity of 3.412.2.7 [place]7.3.698 [place] .3.259258 084.8 MD Maria [facility] 2022-02-06 2022-02-06 Outpatient RISA CHANG MDA, MDA [id number] 15:08:15 17:24:59 [facility] 2022-02-06 2022-02-06 Infusion Risa Aguilera 1.2.840.1 [id number] Univers 15:00:00 17:24:59 Karlie Link 69743.1.1 ity of 3.412.2.7 [place] .3.694509 MD [facility] 2022-02-06 2022-02-06 Outpatient RISA CHANG MDA [facility] [id number] 14:01:12 14:16:37 [facility] 2022-02-06 2022-02-06 Travel 1.2.840.1 1.2.166.168 [id number] [id number] [facility] [place] [facility] 00:00:00 00:00:00 94897.1.1 350.1.13.41 ity of 3.412.2.7 [place]7.3.698 [place]3.879437 084.8 MD Retana8 [facility] 2022-01-30 2022-01-30 Infusion Risa Aguilera 1.2.840.1 [id number] Univers 15:30:00 17:39:03 Becky Macedo 33826.1.1 ity of 3.412.2.7 [place] .3.493743 MD [facility] 2022-01-30 2022-01-[address] [facility] [id number] 14:30:16 17:39:03 [facility] 2022-01-30 2022-01-[address] [facility] [id number] 14:10:23 14:33:14 [facility] 2022-01-30 2022-01-30 Travel 1.2.840.1 1.2.611.969 2153 [id number] [facility] [place] [facility] 00:00:00 00:00:00 47746.1.1 350.1.13.41 ity of 3.412.2.7 [place]7.3.698 [place] .3.4533[place] 084.8 MD [facility] 2022-01-22 2022-01-22 Sharla Aguirre Giuseppejosef 1.2.840.1 [id number] 1 [id number] [facility] [place] [facility] 11:45:00 14:19:41 Korin Gazron 55624.1.1 ity of 3.412.2.7 [place] .3.375646 MD Ret[facility]8 [facility] 2022-01-22 2022-01-[address] [facility] [id number] 11:24:34 14:19:41 [facility] 2022-01-22 2022-01-[address] [facility] [id number] 10:42:42 11:22:43 [facility] 2022-01-22 2022-01-22 Travel 1.2.840.1 1.2.603.045 1039 [id number] Univers 00:00:00 00:00:00 11075.1.1 350.1.13.41 ity of 3.412.2.7 [place]7.3.698 [place] .3.834050 084.8 MD [facility] 2022-01-16 2022-01-16 Carley SheriffRisa peter 1.2.840.1 [id number] [facility] [place] [facility] 00:00:00 00:00:00 Only B 18588.1.1 ity of 3.412.2.7 [place] .3.792440 MD Maria [facility] 2022-01-15 2022-01-15 Infusion Gil Aguirre 1.2.840.1 [id number] 1 [id number] [facility] [place] [facility] 11:45:00 16:07:40 Ivis Aguirre 16376.1.1 ity of 3.412.2.7 [place] .3.902995 MD [facility] 2022-01-15 2022-01-15 Outpatient GIL LOCKHART [facility] MDA [id number] 11:24:17 16:07:40 Shaheen [facility] 2022-01-15 2022-01-15 Office Ton Arias2.840.1 [id number] [facility] [place] [facility] 11:00:00 11:20:00 Visit Danisha 20997.1.1 ity of 3.412.2.7 [place] .3.231959 MD [facility] 2022-01-15 2022-01-15 Outpatient OMAR HUGOBELLA [facility] [id number] 09:47:20 09:47:20 DANISHA Jamison [facility] 2022-01-15 2022-01-15 Outpatient GIL LOCKHART [facility] MDA [id number] 09:23:36 09:39:47 Shaheencolton arizmendi 2022-01-15 2022-01-15 Risa Rosa 1.2.840.1 [id number] [facility] [place] [facility] 00:00:00 00:00:00 Only B 85959.1.1 ity of 3.412.2.7 [place] .3.124454 MD [facility] 2022-01-15 2022-01-15 Travel 1.2.840.1 1.2.830.587 4462 [id number] [facility] [place] [facility] 00:00:00 00:00:00 92980.1.1 350.1.13.41 ity of 3.412.2.7 [place]7.3.698 [place] .3.712194 084.8 MD Ret[facility]8 [facility] 2022-01-09 2022-01-09 Risa Rosa 1.2.840.1 [id number] [id number] Univers 00:00:00 00:00:00 Only B 61169.1.1 ity of 3.412.2.7 [place] .3.628785 MD [facility] 2022-01-09 2022-01-09 Orders Aguilera, Risa 1.2.840.1 [id number] Univers 00:00:00 00:00:00 Only B 19822.1.1 ity of 3.412.2.7 [place] .3.703316 MD [facility]8 [facility] 2022-01-08 2022-01-08 Orders Risa Aguilera 1.2.840.1 [id number] [id number] Univers 00:00:00 00:00:00 Only B 20804.1.1 ity of 3.412.2.7 [place] .3.673934 MD [facility] 2022-01-08 2022-01-08 Telephone Hugo, 1.2.840.1 [id number] [id number] Univers 00:00:00 00:00:00 Danisha 53805.1.1 ity of 3.412.2.7 [place] .3.982977 MD Ret[facility]8 [facility] 2022-01-08 2022-01-08 Orders Uriel Risa 1.2.840.1 [id number] Univers 00:00:00 00:00:00 Only B 13462.1.1 ity of 3.412.2.7 [place] .3.616590 MD [facility] 2022-01-08 2022-01-08 Telephone Hugo, 1.2.840.1 [id number] [id number] Univers 00:00:00 00:00:00 Danisha 92748.1.1 ity of 3.412.2.7 [place] .3.789841 MD [facility] 2022-01-03 2022-01-03 Orders Uriel Risa 1.2.840.1 [id number] Univers 00:00:00 00:00:00 Only B 84526.1.1 ity of 3.412.2.7 [place] .3.936189 MD Maria [facility] 2022-01-03 2022-01-03 Orders AguileraRisa 1.2.840.1 [id number] [facility] [place] [facility] 00:00:00 00:00:00 Only B 33950.1.1 ity of 3.412.2.7 [place] .3.769647 MD [facility] 2022-01-02 2022-01-02 Infusion Gil Aguirre 1.2.840.1 [id number] 1 [id number] Univers 14:15:00 16:39:43 Adelaide Monsivais 12379.1.1 ity of 3.412.2.7 [place] .3.981645 MD [facility] 2022-01-02 2022-01-02 Infusion Gil Lockhart 1.2.840.1 [id number] 1 [id number] Univers 14:15:00 16:39:43 Adelaide Monsivais 16951.1.1 ity of 3.412.2.7 [place] .3.322707 MD [facility] 2022-01-02 2022-01-[address] [facility] [id number] [place] 13:02:21 13:18:35 [facility] 2022-01-02 2022-01-02 Travel 1.2.840.1 1.2.759.240 9902 [id number] Univers 00:00:00 00:00:00 59836.1.1 350.1.13.41 ity of 3.412.2.7 2.[place].7.3.698 [place] .3.669490 084.8 MD Maria [facility] 2022-01-02 2022-01-02 Travel 1.2.840.1 1.2.355.467 6466 [id number] Univers 00:00:00 00:00:00 60198.1.1 350.1.13.41 ity of 3.412.2.7 2.2.7.3.698 [place] .3.817385 084.8 MD Ret[facility]8 [facility] 2021-12-29 2021-12-29 Telephone Jackie Deal 1.2.840.1 [id number] Univers 00:00:00 00:00:00 B 96494.1.1 ity of 3.412.2.7 [place] .3.341818 MD [facility]8 [facility] 2021-12-29 2021-12-29 Telephone Jackie Deal 1.2.840.1 [id number] Univers 00:00:00 00:00:00 B 45855.1.1 ity of 3.412.2.7 [place] .3.328101 MD Ret[facility]8 [facility] 2021-12-26 2021-12-26 Infusion Gil Aguirre 1.2.840.1 [id number] 1 [id number] Univers 11:30:00 14:33:10 Adelaide Monsivais 92631.1.1 ity of 3.412.2.7 [place] .3.277911 MD [facility] 2021-12-26 2021-12-26 Infusion Gil Lockhart 1.2.840.1 [id number] 1 [id number] Univers 11:30:00 14:33:10 Adelaide Monsivais 32779.1.1 ity of 3.412.2.7 [place] .3.846441 MD [facility] 2021-12-26 2021-12-26 Office Gil Aguirre 1.2.840.1 [id number] 10 [id number] Univers 10:30:00 11:24:07 Visit 90894.1.1 ity of 3.412.2.7 [place] .3.155716 MD [facility] 2021-12-26 2021-12-26 Office Gil Lockhart 1.2.840.1 [id number] 10 [id number] Univers 10:30:00 11:24:07 Visit 29184.1.1 ity of 3.412.2.7 [place] .3.055889 MD [facility] 2021-12-26 2021-12-[address] [facility] [id number] 10:11:17 10:38:19 [facility] 2021-12-26 2021-12-26 Orders Hugo, 1.2.840.1 [id number] Univers 00:00:00 00:00:00 Only Danisha 49171.1.1 ity of 3.412.2.7 [place] .3.680677 MD [facility] 2021-12-26 2021-12-26 Travel 1.2.840.1 1.2.018.268 6505 [id number] Univers 00:00:00 00:00:00 77726.1.1 350.1.13.41 ity of 3.412.2.7 [place]7.3.698 [place] .3.087516 084.8 MD [facility] 2021-12-26 2021-12-26 Orders Hugo, 1.2.840.1 [id number] Univers 00:00:00 00:00:00 Only Danisha 73349.1.1 ity of 3.412.2.7 [place] .3.487991 MD Maria [facility] 2021-12-26 2021-12-26 Travel 1.2.840.1 1.2.385.170 5410 [id number] Univers 00:00:00 00:00:00 57312.1.1 350.1.13.41 ity of 3.412.2.7 [place].2.7.3.698 [place] .3.187080 084.8 MD [facility] 2021-12-19 2021-12-19 Infusion Gil Aguirre 1.2.840.1 [id number] 1 [id number] [facility] [place] [facility] 14:15:00 16:43:28 Gunjan Bloom 27408.1.1 ity of 3.412.2.7 [place] .3.876482 MD [facility] 2021-12-19 2021-12-19 Infusion Gil Lockhart 1.2.840.1 [id number] 1 [id number] [facility] [place] [facility] 14:15:00 16:43:28 Gunjan Bloom 87772.1.1 ity of 3.412.2.7 [place] .3.314025 MD [facility] 2021-12-19 2021-12-19 Outpatient GIL LOCKHART MDA MDA [id number] 12:55:52 13:04:05 [facility] 2021-12-19 2021-12-19 Travel 1.2.840.1 1.2.783.114 4351 [id number] Univers 00:00:00 00:00:00 09075.1.1 350.1.13.41 ity of 3.412.2.7 2.2.7.3.698 [place] .3.180739 084.8 MD [facility] 2021-12-19 2021-12-19 Travel 1.2.840.1 1.2.829.749 0248 [id number] Univers 00:00:00 00:00:00 50440.1.1 350.1.13.41 ity of 3.412.2.7 2.2.7.3.698 [place] .3.255654 084.8 MD [facility] 2021-12-13 2021-12-13 Orders Alan-Jean-Paul 1.2.840.1 [id number] 10 [id number] Univers 00:00:00 00:00:00 Only Chelsie fenton 64129.1.1 ity of 3.412.2.7 [place] .3.496189 MD [facility] 2021-12-13 2021-12-13 Orders Risa Aguilera 1.2.840.1 [id number] 985 [id number] Univers 00:00:00 00:00:00 Only B 41994.1.1 ity of 3.412.2.7 [place] .3.346990 MD [facility] 2021-12-13 2021-12-13 Orders Alan-Jean-Paul 1.2.840.1 [id number] 10 [id number] Univers 00:00:00 00:00:00 Only Chelsie fenton 12060.1.1 ity of 3.412.2.7 [place] .3.724188 MD [facility] 2021-12-13 2021-12-13 Carley SheriffelRisa 1.2.840.1 [id number] [id number] Univers 00:00:00 00:00:00 Only Ute 71281.1.1 ity of 3.412.2.7 [place] .3.920648 MD [facility] 2021-12-12 2021-12-12 Infusion Gil Aguirre 1.2.840.1 [id number] 1 [id number] Univers 15:00:00 17:04:49 Shahnaz Shipley 64283.1.1 ity of 3.412.2.7 [place] .3.360507 MD [facility] 2021-12-12 2021-12-12 Infusion Gil Aguirre 1.2.840.1 [id number] 1 [id number] Univers 15:00:00 17:04:49 Shahnaz Shipley 45292.1.1 ity of 3.412.2.7 [place] .3.894721 MD [facility] 2021-12-12 2021-12-12 Gil Mendez 1.2.840.1 [id number] 10 [id number] Univers 00:00:00 00:00:00 Only 59147.1.1 ity of 3.412.2.7 [place] .3.396362 MD [facility] 2021-12-12 2021-12-12 Travel 1.2.840.1 1.2.208.708 8295 [id number] Univers 00:00:00 00:00:00 12795.1.1 350.1.13.41 ity of 3.412.2.7 2.2.7.3.698 [place] .3.043566 084.8 MD [facility] 2021-12-12 2021-12-12 Gil Mendez 1.2.840.1 [id number] 10 [id number] Univers 00:00:00 00:00:00 Only 27076.1.1 ity of 3.412.2.7 [place] .3.278745 MD [facility] 2021-12-12 2021-12-12 Travel 1.2.840.1 1.2.034.913 7732 [id number] Univers 00:00:00 00:00:00 64336.1.1 350.1.13.41 ity of 3.412.2.7 2.2.7.3.698 [place] .3.409577 084.8 MD [facility]8 [facility] 2021-12-11 2021-12-11 Telephone Era, 1.2.840.1 [id number] 1 [id number] Univers 00:00:00 00:00:00 Chey Downing 22313.1.1 it y of 3.412.2.7 [place] .3.393258 MD [facility]8 [facility] 2021-12-11 2021-12-11 Telephone Anilabilly, 1.2.840.1 [id number] 1 [id number] Univers 00:00:00 00:00:00 Chey Downing 12330.1.1 it y of 3.412.2.7 [place] .3.231911 MD [facility]8 [facility] 2021-12-07 2021-12-07 Telephone Jackie Deal 1.2.840.1 [id number] Univers 00:00:00 00:00:00 B 95659.1.1 ity of 3.412.2.7 [place] .3.638334 MD [facility]8 [facility] 2021-12-07 2021-12-07 Telephone Jackie Deal 1.2.840.1 [id number] Univers 00:00:00 00:00:00 B 91620.1.1 ity of 3.412.2.7 [place] .3.861518 MD [facility] 2021-12-05 2021-12-05 Infusion Gil Aguirre 1.2.840.1 [id number] 1 [id number] Univers 13:30:00 15:10:39 Gunjan Bloom S 88523.1.1 ity of 3.412.2.7 [place] .3.571095 MD [facility]8 [facility] 2021-12-05 2021-12-05 Infusion Gil Aguirre 1.2.840.1 [id number] 1 [id number] Univers 13:30:00 15:10:39 MerleGunjan S 24757.1.1 ity of 3.412.2.7 [place] .3.851624 MD [facility]8 [facility] 2021-12-05 2021-12-05 Office Gil Aguirre 1.2.840.1 [id number] 10 [id number] Univers 11:20:00 12:50:28 Visit Danisha Arias 99586.1.1 ity of 3.412.2.7 [place] .3.322264 MD [facility]8 [facility] 2021-12-05 2021-12-05 Office Gil Aguirre 1.2.840.1 [id number] 10 [id number] Univers 11:20:00 12:50:28 Visit Danisha Arias 14455.1.1 ity of 3.412.2.7 [place] .3.447763 MD [facility] 2021-12-05 2021-12-05 Travel 1.2.840.1 1.2.834.311 9495 [id number] Univers 00:00:00 00:00:00 38145.1.1 350.1.13.41 ity of 3.412.2.7 2.2.7.3.698 [place] .3.562544 084.8 MD [facility] 2021-12-05 2021-12-05 Travel 1.2.840.1 1.2.935.977 1605 [id number] Univers 00:00:00 00:00:00 65605.1.1 350.1.13.41 ity of 3.412.2.7 2.2.7.3.698 [place] .3.161891 084.8 MD [facility] 2021-12-04 2021-12-04 Telephone Cyriac, 1.2.840.1 [id number] [id number] Univers 00:00:00 00:00:00 Cicnelsy S 32959.1.1 ity of 3.412.2.7 [place] .3.812078 MD [facility]8 [facility] 2021-12-04 2021-12-04 Telephone Cyriac, 1.2.840.1 [id number] 1093 [id number] Univers 00:00:00 00:00:00 Cicnelsy S 24717.1.1 ity of 3.412.2.7 [place] .3.876868 MD [facility] 2021-11-28 2021-11-28 Infusion Risa Aguilera 1.2.840.1 [id number] Univers 15:15:00 17:03:38 Becky Macedo 03263.1.1 ity of 3.412.2.7 [place] .3.721373 MD [facility] 2021-11-28 2021-11-28 Infusion Risa Aguilera 1.2.840.1 [id number] Univers 15:15:00 17:03:38 Becky Macedo 09612.1.1 ity of 3.412.2.7 [place] .3.977857 MD [facility] 2021-11-28 2021-11-28 Aaron Hannon 1.2.840.1 [id number] 10 [id number] Univers 00:00:00 00:00:00 Only T 15366.1.1 ity of 3.412.2.7 [place] .3.578442 MD [facility] 2021-11-28 2021-11-28 Travel 1.2.840.1 1.2.017.528 9106 [id number] Univers 00:00:00 00:00:00 80360.1.1 350.1.13.41 ity of 3.412.2.7 2.2[place]7.3.698 [place] .3.846823 084.8 MD [facility] 2021-11-28 2021-11-28 Jackie López 1.2.840.1 [id number] Univers 00:00:00 00:00:00 B 07144.1.1 ity of 3.412.2.7 [place] .3.801617 MD [facility]8 [facility] 2021-11-28 2021-11-28 Risa Rosa 1.2.840.1 [id number] Univers 00:00:00 00:00:00 Only B 35829.1.1 ity of 3.412.2.7 [place] .3.526324 MD Ret[facility]8 [facility] 2021-11-28 2021-11-28 Aaron Hannon 1.2.840.1 [id number] 10 [id number] Univers 00:00:00 00:00:00 Only T 83217.1.1 ity of 3.412.2.7 [place] .3.446060 MD [facility] 2021-11-28 2021-11-28 Travel 1.2.840.1 1.2.255.630 1038 [id number] Univers 00:00:00 00:00:00 76077.1.1 350.1.13.41 ity of 3.412.2.7 2.2.7.3.698 [place] .3.733903 084.8 MD [facility] 2021-11-28 2021-11-28 Jackie López 1.2.840.1 [id number] Univers 00:00:00 00:00:00 B 27210.1.1 ity of 3.412.2.7 [place] .3.064097 MD [facility] 2021-11-28 2021-11-28 Risa Rosa 1.2.840.1 [id number] [id number] Univers 00:00:00 00:00:00 Only B 08583.1.1 ity of 3.412.2.7 [place] .3.964774 MD Retana8 [facility] 2021-11-24 2021-11-24 Documentat Risa Aguilera 1.2.840.1 [id number] Univers 00:00:00 00:00:00 ion B 24649.1.1 ity of 3.412.2.7 [place] .3.938120 .8 [facility] 2021-11-24 2021-11-24 Risa Rosa 1.2.840.1 [id number] 606 [id number] Univers 00:00:00 00:00:00 Only B 83111.1.1 ity of 3.412.2.7 [place] .3.199202 MD Retana8 [facility] 2021-11-24 2021-11-24 Documentat Risa Aguilera 1.2.840.1 [id number] Univers 00:00:00 00:00:00 ion B 88262.1.1 ity of 3.412.2.7 [place] .3.828365 .8 [facility] 2021-11-24 2021-11-24 Risa Rosa 1.2.840.1 [id number] Univers 00:00:00 00:00:00 Only B 75277.1.1 ity of 3.412.2.7 [place] .3.310889 MD Maria [facility] 2021-11-21 2021[facility]11-21 [facility] [id number] Univers 13:17:50 23:59:00 Encounter JuliaGabriele Wileyyn 82586.1.1 ity of 3.412.2.7 [place] .3.049757 MD Retana8 [facility] 2021-11-21 2021-11-21 [facility] 1.2.840.1 [id number] Univers 13:17:50 23:59:00 Encounter [place] Cha 53426.1.1 ity of 3.412.2.7 [place] .3.216590 MD Ret[facility]8 [facility] 2021-11-21 2021-11-21 Travel 1.2.840.1 1.2.037.245 9436 [id number] Univers 00:00:00 00:00:00 16252.1.1 350.1.13.41 ity of 3.412.2.7 2.2.7.3.698 [place] .3.793248 084.8 MD Ret[facility]8 [facility] 2021-11-21 2021-11-21 Travel 1.2.840.1 1.2.548.478 8621 [id number] Univers 00:00:00 00:00:00 63753.1.1 350.1.13.41 ity of 3.412.2.7 2.2.7.3.698 [place] .3.160098 084.8 MD Maria [facility] 2021-11-14 2021-11-14 Hospital Risa Aguilera 1.2.840.1 [id number] Univers 07:11:01 23:59:00 Encounter Max Woodward 09390.1.1 ity of 3.412.2.7 [place] .3.984615 MD [facility] 2021-11-14 2021-11-14 Hospital Risa Aguilera 1.2.840.1 [id number] Univers 07:11:01 23:59:00 Encounter Max Woodward 32576.1.1 ity of 3.412.2.7 [place] .3.414901 MD [facility] 2021-11-14 2021-11-14 Infusion Risa Aguilera 1.2.840.1 [id number] Univers 12:15:00 17:22:12 Korin Garzon 65766.1.1 ity of 3.412.2.7 [place] .3.850625 MD [facility] 2021-11-14 2021-11-14 Infusion Risa Aguilera 1.2.840.1 [id number] Univers 12:15:00 17:22:12 Korin Garzon 72991.1.1 ity of 3.412.2.7 [place] .3.457040 MD [facility] 2021-11-14 2021-11-14 Office Risa Aguilera 1.2.840.1 [id number] Univers 11:20:00 12:51:26 Visit Danisha Arias 08912.1.1 ity of 3.412.2.7 [place] .3.499077 MD [facility] 2021-11-14 2021-11-14 Office Risa Aguilera 1.2.840.1 [id number] Univers 11:20:00 12:51:26 Visit Danisha Arias 11590.1.1 ity of 3.412.2.7 [place] .3.104231 MD [facility] 2021-11-14 2021-11-14 Antionette Espinoza 1.2.840.1 [id number] Univers 00:00:00 00:00:00 Only 78685.1.1 ity of 3.412.2.7 [place] .3.927258 MD [facility] 2021-11-14 2021-11-14 Travel 1.2.840.1 1.2.271.755 [id number] Univers 00:00:00 00:00:00 37027.1.1 350.1.13.41 ity of 3.412.2.7 2.2.7.3.698 [place] .3.463626 084.8 MD [facility] 2021-11-14 2021-11-14 Antionette Espinoza 1.2.840.1 [id number] Univers 00:00:00 00:00:00 Only 72031.1.1 ity of 3.412.2.7 [place] .3.760370 MD [facility] 2021-11-14 2021-11-14 Travel 1.2.840.1 1.2.041.027 [id number] Univers 00:00:00 00:00:00 51637.1.1 350.1.13.41 ity of 3.412.2.7 2.2.7.3.698 [place] .3.127037 084.8 MD [facility] 2021-11-10 2021-11-10 Anesthesia Dewey Logan 1.2.840.1 [id number] Univers 23:59:59 23:59:59 Event 37503.1.1 ity of 3.412.2.7 [place] .3.437755 MD [facility] 2021-11-10 2021-11-10 Anesthesia Logan Palomo 1.2.840.1 [id number] Univers 23:59:59 23:59:59 Event 86386.1.1 ity of 3.412.2.7 [place] .3.699858 MD [facility] 2021-11-10 2021-11-10 [facility] 1.2.8 40.1 [id number] Univers 12:41:49 23:59:00 Encounter Edelmira Aguilera 70045.1.1 ity of 3.412.2.7 [place] .3.834100 MD [facility] 2021-11-10 2021-11-10 [facility] Dyera Moore 1.2.8 40.1 [id number] Univers 12:41:49 23:59:00 Encounter Edelmira Aguilera 04575.1.1 ity of 3.412.2.7 [place] .3.712331 MD [facility] 2021-11-10 2021-11-10 Ancillary Risa Aguilera 1.2.840.1 [id number] 1 [id number] Univers 12:15:00 14:00:00 Procedure B 78773.1.1 it y of 3.412.2.7 [place] .3.541237 MD [facility] 2021-11-10 2021-11-10 Ancillary Risa Aguilera 1.2.840.1 [id number] Univers 12:15:00 14:00:00 Procedure B 04825.1.1 it y of 3.412.2.7 [place] .3.801666 MD [facility] 2021-11-10 2021-11-10 Clinical [place] 1.2.8 40.1 [id number] Univers 11:15:00 11:15:00 Support Carol Ann Almanza 17368.1.1 ity of 3.412.2.7 [place] .3.749945 MD [facility] 2021-11-10 2021-11-10 Clinical ShamekakeaganlenardKerry 1.2.8 40.1 [id number] Univers 11:15:00 11:15:00 Support Carol Ann Almanza 58068.1.1 ity of 3.412.2.7 [place] .3.372161 MD [facility] 2021-11-10 2021-11-10 STEVIE Boudreaux, 1.2.840.1 [id number] Univers 08:30:00 09:00:00 Appointmen Nazia 15151.1.1 ity of ts 3.412.2.7 [place] .3.595790 MD [facility] 2021-11-10 2021-11-10 POKULWANT Boudreaux, 1.2.840.1 [id number] Univers 08:30:00 09:00:00 Appointmen Nazia 44710.1.1 ity of ts 3.412.2.7 [place] .3.330690 MD [facility] 2021-11-10 2021-11-10 Travel 1.2.840.1 1.2.580.727 9320 [id number] Univers 00:00:00 00:00:00 36253.1.1 350.1.13.41 ity of 3.412.2.7 [place].7.3.698 [place] .3.6699[place] 08Deanna.8 MD Retana8 [facility] 2021-11-10 2021-11-10 Travel 1.2.840.1 1.2.803.146 4404 [id number] Univers 00:00:00 00:00:00 02909.1.1 350.1.13.41 ity of 3.412.2.7 2.[place].7.3.698 [place] .3.661599 084.8 MD Retana8 [facility] 2021-11-09 2021-11-09 Orders Boudreaux, 1.2.840.1 [id number] Univers 00:00:00 00:00:00 Only Nazia 41787.1.1 ity of 3.412.2.7 [place] .3.067745 MD Retana8 [facility] 2021-11-09 2021-11-09 Orders Boudreaux, 1.2.840.1 [id number] Univers 00:00:00 00:00:00 Only Nazia 56216.1.1 ity of 3.412.2.7 [place] .3.465766 MD [facility] 2021-11-08 2021-11-08 Orders Rush, 1.2.840.1 [id number] Univers 00:00:00 00:00:00 Only Sylvester N 41411.1.1 ity of 3.412.2.7 [place] .3.363340 MD Maira [facility] 2021-11-08 2021-11-08 Telephone Daily, 1.2.840.1 [id number] Univers 00:00:00 00:00:00 Tammy I 98300.1.1 ity of 3.412.2.7 [place] .3.765878 MD [facility] 2021-11-08 2021-11-08 Orders Beverly, 1.2.840.1 [id number] Univers 00:00:00 00:00:00 Only Sylvester N 16409.1.1 ity of 3.412.2.7 [place] .3.730250 MD [facility] 2021-11-08 2021-11-08 Telephone Daily, 1.2.840.1 [id number] Univers 00:00:00 00:00:00 Tammy I 53774.1.1 ity of 3.412.2.7 [place] .3.941054 MD Marai [facility] 2021-11-06 2021-11-06 Consult Hugo, 1.2.840.1 [id number] Univers 10:00:00 11:43:46 Danisha 98891.1.1 ity of 3.412.2.7 [place] .3.987481 MD [facility] 2021-11-06 2021-11-06 Consult Hugo, 1.2.840.1 [id number] Univers 10:00:00 11:43:46 Danisha 20758.1.1 ity of 3.412.2.7 [place] .3.109630 MD [facility] 2021-11-06 2021-11-06 Orders Paola 1.2.840.1 [id number] Univers 00:00:00 00:00:00 Only Chelsie fenton 29008.1.1 ity of 3.412.2.7 [place] .3.000654 MD [facility] 2021-11-06 2021-11-06 Orders Risa Aguilera 1.2.840.1 [id number] [id number] Univers 00:00:00 00:00:00 Only B 32304.1.1 ity of 3.412.2.7 [place] .3.391779 MD [facility] 2021-11-06 2021-11-06 Travel 1.2.840.1 1.2.706.667 4122 [id number] Univers 00:00:00 00:00:00 92884.1.1 350.1.13.41 ity of 3.412.2.7 2.[place].7.3.698 [place] .3.364549 084.8 MD [facility] 2021-11-06 2021-11-06 Carley Lermarera-Jean-Paul 1.2.840.1 [id number] Univers 00:00:00 00:00:00 Only Chelsie fenton 99012.1.1 ity of 3.412.2.7 [place] .3.666692 MD [facility] 2021-11-06 2021-11-06 Orders Risa Aguilera 1.2.840.1 [id number] Univers 00:00:00 00:00:00 Only B 19031.1.1 ity of 3.412.2.7 [place] .3.078269 MD [facility] 2021-11-06 2021-11-06 Travel 1.2.840.1 1.2.353.317 1593 [id number] Univers 00:00:00 00:00:00 32220.1.1 350.1.13.41 ity of 3.412.2.7 2.[place].7.3.698 [place] .3.878911 084.8 MD [facility] 2021-11-03 2021-11-03 Hospital [facility], 1.2.840.1 [id number] [facility] [place] [facility] 11:15:00 23:59:00 Encounter Ihab 58403.1.1 it y of 3.412.2.7 [place] .3.480813 MD [facility] 2021-11-03 2021-11-03 [facility], 1.2.840.1 [id number] [facility] [place] [facility] 11:15:00 23:59:00 Encounter Ihab 34411.1.1 it y of 3.412.2.7 [place] .3.133956 MD Retaan8 [facility] 2021-11-03 2021-11-03 [facility], 1.2.840.1 [id number] 9315 [facility] [place] [facility] 10:20:00 11:51:45 Ihab 38116.1.1 ity of 3.412.2.7 [place] .3.335545 MD Retana8 [facility] 2021-11-03 2021-11-03 Consult Sony, 1.2.840.1 [id number] Univers 10:20:00 11:51:45 Ihab 23040.1.1 ity of 3.412.2.7 [place] .3.421726 MD [facility] 2021-11-03 2021-11-03 Travel 1.2.840.1 1.2.140.762 8635 [id number] Univers 00:00:00 00:00:00 76670.1.1 350.1.13.41 ity of 3.412.2.7 2.[place].7.3.698 [place] .3.067846 084.8 MD Retana8 [facility] 2021-11-03 2021-11-03 Travel 1.2.840.1 1.2.157.573 4141 [id number] Univers 00:00:00 00:00:00 99462.1.1 350.1.13.41 ity of 3.412.2.7 2.[place]7.3.698 [place] .3.029620 084.8 MD [facility] 2021-11-02 2021-11-02 Ancillary Alan-Jean-Paul 1.2.840.1 [id number] Univers 12:40:00 15:05:00 Procedure eliceo, Chelsie 64741.1.1 ity of 3.412.2.7 [place] .3.136137 MD [facility] 2021-11-02 2021-11-02 Ancillary Alan-Jean-Paul 1.2.840.1 [id number] Univers 12:40:00 15:05:00 Procedure eliceo, Chelsie 65569.1.1 ity of 3.412.2.7 [place] .3.007751 MD [facility] 2021-11-02 2021-11-02 Ancillary Alan-Jean-Paul 1.2.840.1 [id number] Univers 09:30:00 10:00:00 Procedure eliceo, Chelsie 45373.1.1 ity of 3.412.2.7 [place] .3.815170 MD Retana8 [facility] 2021-11-02 2021-11-02 Ancillary Alan-Jean-Paul 1.2.840.1 [id number] Univers 09:30:00 10:00:00 Procedure eliceo, Chelsie 39033.1.1 ity of 3.412.2.7 [place] .3.271955 MD Retana8 [facility] 2021-11-02 2021-11-02 Ancillary Alan-Jean-Paul 1.2.840.1 [id number] Univers 07:00:00 07:30:00 Procedure eliceo, Chelsie 24493.1.1 ity of 3.412.2.7 [place] .3.305297 MD Retana8 [facility] 2021-11-02 2021-11-02 Ancillary Alan-Jean-Paul 1.2.840.1 [id number] Univers 07:00:00 07:30:00 Procedure eliceo, Chelsie 26370.1.1 ity of 3.412.2.7 [place] .3.608844 MD [facility] 2021-11-02 2021-11-02 Travel 1.2.840.1 1.2.422.373 5725 [id number] Univers 00:00:00 00:00:00 22565.1.1 350.1.13.41 ity of 3.412.2.7 2.[place].7.3.698 [place] .3.858877 084.8 MD [facility] 2021-11-02 2021-11-02 Travel 1.2.840.1 1.2.713.609 5649 [id number] Univers 00:00:00 00:00:00 71084.1.1 350.1.13.41 ity of 3.412.2.7 2.2.7.3.698 [place] .3.009984 084.8 MD [facility] 2021-10-27 2021-10-27 Office Refinetti, 1.2.840.1 [id number] Univers 08:00:00 11:38:06 Visit Kerry Whittaker 32130.1.1 it y of [place] 3.412.2.7 [place] .3.796329 MD [facility] 2021-10-27 2021-10-[address], 1.2.840.1 [id number] Univers 08:00:00 11:38:06 Visit Kerry Whittaker 69257.1.1 it y of [place] 3.412.2.7 [place] .3.835058 MD [facility] 2021-10-27 2021-10-27 NPR 1.2.840.1 [id number] Univers 07:30:00 08:48:48 63441.1.1 ity of 3.412.2.7 [place] .3.569210 MD [facility] 2021-10-27 2021-10-27 NPR EL 1.2.840.1 [id number] Univers 07:30:00 08:48:48 16095.1.1 ity of 3.412.2.7 [place] .3.294638 MD [facility] 2021-10-27 2021-10-27 Travel 1.2.840.1 1.2.540.621 2510 [id number] Univers 00:00:00 00:00:00 28792.1.1 350.1.13.41 ity of 3.412.2.7 2.2.7.3.698 [place] .3.582554 084.8 MD [facility] 2021-10-27 2021-10-27 Travel 1.2.840.1 1.2.603.209 4639 [id number] Univers 00:00:00 00:00:00 74381.1.1 350.1.13.41 ity of 3.412.2.7 2.2.7.3.698 [place] .3.540144 084.8 MD [facility] 2021-10-26 2021-10-26 Ancillary Refinetti, 1.2.840.1 [id number] 1 [id number] Univers 20:15:00 20:20:00 Procedure Amy 29647.1.1 ity of [place] 3.412.2.7 [place] .3.403379 MD Retana8 [facility] 2021-10-26 2021-10-26 Ancillary EL Refinetti, 1.2.840.1 [id number] 1 [id number] Univers 20:15:00 20:20:00 Procedure Amy 12651.1.1 ity of [place] 3.412.2.7 [place] .3.593059 MD Retana8 [facility] 2021-10-26 2021-10-26 Ancillary Refinetti, 1.2.840.1 [id number] 1 [id number] Univers 20:10:00 20:15:00 Procedure Amy 85398.1.1 ity of [place] 3.412.2.7 [place] .3.712739 .8 [facility] 2021-10-26 2021-10-26 Ancillary EL Refinetti, 1.2.840.1 [id number] 1 [id number] Univers 20:10:00 20:15:00 Procedure Amy 31010.1.1 ity of [place] 3.412.2.7 [place] .3.159575 MD Retana8 [facility] 2021-10-26 2021-10-26 Ancillary Refinetti, 1.2.840.1 [id number] 1 [id number] Univers 20:05:00 20:10:00 Procedure Amy 54306.1.1 ity of [place] 3.412.2.7 [place] .3.952901 MD Retana8 [facility] 2021-10-26 2021-10-26 Ancillary EL Refinetti, 1.2.840.1 [id number] 1 [id number] Univers 20:05:00 20:10:00 Procedure Amy 49476.1.1 ity of [place] 3.412.2.7 [place] .3.853364 MD Retana8 [facility] 2021-10-26 2021-10-26 Ancillary Refinetti, 1.2.840.1 [id number] 1 [id number] Univers 20:00:00 20:05:00 Procedure Amy 58569.1.1 ity of [place] 3.412.2.7 [place] .3.825251 MD Retana8 [facility] 2021-10-26 2021-10-[address], 1.2.840.1 [id number] 1 [id number] Univers 20:00:00 20:05:00 Procedure Amy 42884.1.1 ity of [place] 3.412.2.7 [place] .3.565057 MD Retana8 [facility] 2021-10-26 2021-10-26 Ancillary 1.2.840.1 [id number] [id number] Univers 14:00:00 14:15:00 Procedure 49890.1.1 it y of 3.412.2.7 [place] .3.095271 MD Retana8 [facility] 2021-10-26 2021-10-26 Ancillary 1.2.840.1 [id number] [id number] Univers 14:00:00 14:15:00 Procedure 46120.1.1 it y of 3.412.2.7 [place] .3.494819 MD Retana8 [facility] 2021-10-26 2021-10-26 Ancillary Waqas-Jean-Paul 1.2.840.1 [id number] Univers 11:15:00 12:45:00 Procedure Chelsie fenton 13825.1.1 ity of 3.412.2.7 [place] .3.616620 MD Retana8 [facility] 2021-10-26 2021-10-26 Ancillary Alan-Jean-Paul 1.2.840.1 [id number] Univers 11:15:00 12:45:00 Procedure Chelsie fenton 86874.1.1 ity of 3.412.2.7 [place] .3.834197 MD Retana8 [facility] 2021-10-26 2021-10-26 Ancillary Alan-Jean-Paul 1.2.840.1 [id number] Univers 10:15:00 11:15:00 Procedure eliceo Chelsie 76204.1.1 ity of 3.412.2.7 [place] .3.088635 MD Retana8 [facility] 2021-10-26 2021-10-26 Ancillary Paola 1.2.840.1 [id number] Univers 10:15:00 11:15:00 Procedure eliceo, Chelsie 44814.1.1 ity of 3.412.2.7 [place] .3.870596 MD [facility] 2021-10-26 2021-10-26 Travel 1.2.840.1 1.2.378.943 2704 [id number] Univers 00:00:00 00:00:00 56116.1.1 350.1.13.41 ity of 3.412.2.7 2.2.7.3.698 [place] .3.951770 08Deanna.Adriel [facility] 2021-10-26 2021-10-26 Travel 1.2.840.1 1.2.189.437 8827 [id number] Univers 00:00:00 00:00:00 54087.1.1 350.1.13.41 ity of 3.412.2.7 2.[place].7.3.698 [place] .3.763875 Dante.Adriel [facility] 2021-10-25 2021-10-25 Lab Toñito Guevara 1.2.840.1 [id number] Univers 00:00:00 00:00:00 Requisitio Celestino, Suimin 17457.1.1 ity of n 3.412.2.7 [place] .3.350307 MD [facility] 2021-10-25 2021-10-25 Lab Toñito Guevara 1.2.840.1 [id number] Univers 00:00:00 00:00:00 Requisitio Celestino, Suimin 13984.1.1 ity of n 3.412.2.7 [place] .3.930004 MD .8 [facility] 2021-10-20 2021-10-20 Orders Alan-Jean-Paul 1.2.840.1 [id number] Univers 00:00:00 00:00:00 Only eliceoMargie maksy 09993.1.1 ity of 3.412.2.7 [place] .3.711631 .8 [facility] 2021-10-20 2021-10-20 Orders Alan-Jean-Paul 1.2.840.1 [id number] Univers 00:00:00 00:00:00 Only eliceo, Chelsie 29579.1.1 ity of 3.412.2.7 [place] .3.240263 .8 [facility] [place] 2021-10-10 2021-10-[address] 1.2.702.727 [id number] Univers 14:30:00 16:01:54 Visit Tiffany LAUGHLIN 350.1.13.10 i karie of [facility] 4.2.7.2.686 David COLLADO [id number] Ok dical NAL [address] [facility] 2021-02-13 2021-02-13 Outpatient Yan_W [facility] 87714-2 021 [place] 11:54:00 11:54:00 [facility]23 [facility] 2021-01-03 2021-01-03 Hospital Radiology [facility] 1.2.840.114 [id number] 15:30:00 23:59:00 Encounter Noah 350.1.13.10 [place] 4.2.7.2.686 [place] [id number] 2020-11-16 2020-11-16 [facility] 06791[facility]3 021 [place] 12:32:00 12:32:00 0526 [facility] 2020-07-17 2020-07-17 [facility] 1.2.840.114 [id number] 00:00:00 00:00:00 (Out) Martha HEALBE 350.1.13.10 [place] 4.2.7.2.686 Professio [id number] nal 044 [address] 2020-07-16 2020-07-16 Telephone Lab, [facility] 1.2.840.114 [id number] 00:00:00 00:00:00 Fam Pob I Health 350.1.13.10 [place] 4.2.7.2.686 Professio [id number] nal 044 [address] 2020-07-14 2020-07-14 Laboratory Lab, [facility] 1.2.840.114 [id number] 16:12:27 16:32:27 Only Fam Pob I Health 350.1.13.10 [place] 4.2.7.2.686 Professio [id number] nal 044 Office [address] 2020-07-14 2020-07-14 Letter Doctor CARLA 1.2.840.114 [id number] 00:00:00 00:00:00 (Out) Unassigned, ROSA M 350.1.13.10 [place] [facility] 4.2.7.2.686 [id number] 044 Results Test Description Test Time Test Comments Results Result Comments Source US Breast Complete Right 2022-02-09 15:03:01 Test Item Value Reference Range Interpretation Comme nts Radiology Study observation (narrative) (test code = 59417-8) IMP (test code = IMP) Partial interval response to therapy as detailed above. Recommend appropriate evaluation and treatment of this known malignancy. BI-RADS Category 6:Known Biopsy Proven Malignancy PXN (test code = PXN) Claus Sanders MD - 02/09/2022 CLINICAL INDICATION:Patient is a 66 year old female and is seen for breast cancer FILMS COMPAREDThe present examination has been compared to a prior imaging study performed [facility] on 10/26/2021. Images were obtained in multiple scanning planes. Real-time sonographic imaging of the right breast (including all 4 quadrants andretroareolar region) was performed. Real-time sonographic imaging of the rightregional eddy basins including ultrasound of the chest/mediastinum to evaluatethe axillary (level I,II,III) and internal mammary regions was performed. The known malignancy is identified in the central retroareolar region as anirregular, hypoechoic mass with in situ clip measuring 2.7 x 2.0 x 1.6 cm,previously 3.2 x 3 x 2.7 cm. There is persistent nipple retraction. There areno new suspicious sonographic findings in the right breast. The known metastatic axillary level 1 lymph node is also decreased in sizemeasuring 2.3 x 1.7 x 0.7 cm with in situ clip and persistent focal corticalthickening. Previously, this measured 2.7 x 1.6 x 1.4 cm. A total of 2abnormal level 1 lymph nodes are identified. There is no additional axillary(level 2 3) or internal mammary lymphadenopathy. IMPRESSION:Partial interval response to therapy as detailed above. Recommend appropriate evaluation and treatment of this known malignancy. BI-RADS Category 6:Known Biopsy Proven Malignancy Lab Interpretation (test code = Abnormal 76208-6) [facility] Chest for Breast Ultrasound (Add-on Only)2022-02-09 15:03:01 Test Item Value Reference Range Interpretation Comments Radiology Study observation (narrative) (test code = 46782-1) IMP (test code = IMP) Partial interval response to therapy as detailed above. Recommend appropriate evaluation and treatment of this known malignancy. BI-RADS Category 6:Known Biopsy Proven Malignancy PXN (test code = PXN) Claus Sanders MD - 02/09/2022 CLINICAL INDICATION:Patient is a 66 year old female and is seen for breast cancer FILMS COMPAREDThe present examination has been compared to a prior imaging study performed [facility] on 10/26/2021. Images were obtained in multiple scanning planes. Real-time sonographic imaging of the right breast (including all 4 quadrants andretroareolar region) was performed. Real-time sonographic imaging of the rightregional eddy basins including ultrasound of the chest/mediastinum to evaluatethe axillary (level I,II,III) and internal mammary regions was performed. The known malignancy is identified in the central retroareolar region as anirregular, hypoechoic mass with in situ clip measuring 2.7 x 2.0 x 1.6 cm,previously 3.2 x 3 x 2.7 cm. There is persistent nipple retraction. There areno new suspicious sonographic findings in the right breast. The known metastatic axillary level 1 lymph node is also decreased in sizemeasuring 2.3 x 1.7 x 0.7 cm with in situ clip and persistent focal corticalthickening. Previously, this measured 2.7 x 1.6 x 1.4 cm. A total of 2abnormal level 1 lymph nodes are identified. There is no additional axillary(level 2 3) or internal mammary lymphadenopathy. IMPRESSION:Partial interval response to therapy as detailed above. Recommend appropriate evaluation and treatment of this known malignancy. BI-RADS Category 6:Known Biopsy Proven Malignancy Lab Interpretation Abnormal (test code = 88046-1) [facility]- Asymptomatic AS1410-26-20 04:31:40 Test Item Value Reference Range Interpretation Comments COVID19 (SARS Not Detected Not Detected CoV-2) Result (test code = ____[place] i s a 41497-0) qualitative reverse-transcr iptase polymerase tim n reaction (RT-PC R) developed for t he [employer] GEOREG 680 0 system and inte nded for qualitative detection of SA RS CoV-2 RNA in nasopharyngeal and oropharyngeal s wab specimens colle cted from any indivi duals, including those suspected of CO VID-19 by their health care provider, and t hose without symptom s or other reasons t o suspect COVID-1 9. A fact sheet for patients provid ed by the manufacture r ([employer]) c an be reviewed at:https://www. fda.go v/media/843546/ downlo ad. A fact shee t for Health Care pro viders is provided by the sealing and canceling machine operator ([employer]) and can be reviewed at: https://www.fda .gov/m edia/083402/talib nload Results must be interpreted wit hin the context of all relevant clinic al and laboratory find ings and should not form the sole basis for a diagnosis or treatment decis ion. Positive result s do not rule out bacterial infec tion or co-infection with other viruses. Negative result s do not rule out SARS-CoV-2 and must be combined wit h clinical observations, p atient history, and/or epidemiological information. "Presumptive Positive" resul ts are due to partial amplification o f SARS-CoV-2 targ ets and indicates l ow amounts of viru s present in the specimen at or near the limit of detection. Regardless, individuals wit h "Presumptive Positive" resul ts should be manag ed per institutional guidelines as individuals pos itive for SARS-CoV-2 virus, including use o f appropriate inf ection control protoco ls. Internal contro ls are included to ass ess for possible amplification inhibitors. If inhibition is detected, testi ng is repeated and if inhibition is confirmed the specimen is res ulted as "Invalid". W hen an "Invalid" resul t occurs, it is recommended to wait 3 days before submitting a ne w specimen for te sting if clinically indicated. This assay has been approv ed by the FDA for use only under Emergency Use Authorization ( EUA) in laboratories that have been CLIA-certified to perform moderate-comple xity and high-comple xity tests. The performance characteristics of this assay were verified by the Microbiology Laboratory at [facility], CLIA Accreditation # : [id number] and CAP Accreditation # : [id number]. COVID19 SARS GAS MAIN FITTER Swab Source (test code = 03739) COVID19 SARS Pre-OR Procedure Indication (test code = 51238) [facility] PCR- Asymptomatic [id number] 04:31:40 Test Item Value Reference Range Interpretation Comments COVID19 (SARS Not Detected Not Detected CoV-2) Result (test code = ____This test i s a 72692-4) qualitative reverse-transcr iptase polymerase tim n reaction (RT-PC R) developed for t he [employer] GEORGE 680 0 system and inte nded for qualitative detection of SA RS CoV-2 RNA in nasopharyngeal and oropharyngeal s wab specimens colle cted from any indivi duals, including those suspected of CO VID-19 by their health care provider, and t hose without symptom s or other reasons t o suspect COVID-1 9. A fact sheet for patients provid ed by the manufacture r ([employer]) c an be reviewed at:https://www. fda.go v/media/163642/ downlo ad. A fact shee t for Health Care pro viders is provided by the sealing and canceling machine operator ([employer]) and can be reviewed at: https://www.fda .gov/m edia/315571/talib nload Results must be interpreted wit hin the context of all relevant clinic al and laboratory find ings and should not form the sole basis for a diagnosis or treatment decis ion. Positive result s do not rule out bacterial infec tion or co-infection with other viruses. Negative result s do not rule out SARS-CoV-2 and must be combined wit h clinical observations, p atient history, and/or epidemiological information. "Presumptive Positive" resul ts are due to partial amplification o f SARS-CoV-2 targ ets and indicates l ow amounts of viru s present in the specimen at or near the limit of detection. Regardless, individuals wit h "Presumptive Positive" resul ts should be manag ed per institutional guidelines as individuals pos itive for SARS-CoV-2 virus, including use o f appropriate inf ection control protoco ls. Internal contro ls are included to ass ess for possible amplification inhibitors. If inhibition is detected, testi ng is repeated and if inhibition is confirmed the specimen is res ulted as "Invalid". W hen an "Invalid" resul t occurs, it is recommended to wait 3 days before submitting a ne w specimen for te sting if clinically indicated. This assay has been approv ed by the FDA for use only under Emergency Use Authorization ( EUA) in laboratories that have been CLIA-certified to perform moderate-comple xity and high-comple xity tests. The performance characteristics of this assay were verified by the Microbiology Laboratory at [facility], CLIA Accreditation # : [id number] and CAP Accreditation # : [id number]. COVID19 SARS GAS MAIN FITTER Swab Source (test code = 60071) COVID19 SARS Pre-OR Procedure Indication (test code = 19638) [facility] [id number] 12:28:58 Test Item Value Reference Range Interpretation Comments POC Crea (test code 0.9 mg/dL 0.6-1.3 Medicati ons, especially = 34469-4) hydroxyurea or supplements, garcia ch as ascorbate, can interfere with test resul ts causing a false ly and significantly h igher result than exp ected. If a problem is garcia spected with a patient' s result, a sample should be sent to the laborato ry for confirmatory te sting. Method descript ion: The i-STAT is an an alyzer used for in vit ro quantification of various analyte s in whole blood. Th e device uses a single d isposable cartridge which contains microfabricated sensors, a calibration s olution, fluidics system , and a waste chamber. Each test cartridge conta ins chemically sens itive biosensors on a silicon chip that are c onfigured to perform spec ific tests. The microfabricated sensors measure analyte concentration b y an electrochemical assay. POC eGFR-AA (test 77 See_Comment Normal eGF R >= 60 code = 71281-8) mL/min/1.73 m2 The eGFR is calculated u sing the CKD-EPI equatio n. The eGFR declines w ith age. eGFR <60 mL/min /1.73 m2 is considered a s "decreased" Thi s equation should only be used for patien ts 18 and older. Priyankain g to the National Kidney Foundation's Ki dney Disease Outcome Quality Initiative (KDO QI) classification and 2012 Kidney Disease Improving Global Outcomes (KDIGO) Clinical Practi ce Guideline, the stage of CKD should be categorized bas ed on estimated GFR. Stage Description GFR mL/min/1.73 m21 Kidney damage with nor mal or high GFR >=902 Kidney damage with mil d decrease in GFR 60-893a Mild to moderat e decrease in GFR 45-593b Moderate to sev ere decrease in GFR 30-444 Severe decrease in GFR 15-295 Kidney f ailure <15 (or dialysi s) [Automated mess age] The system which ge nerated this result tra nsmitted reference range : >=60 mL/min/1.73 m2. The reference range was not used to interpr et this result as normal/abnormal . POC eGFR-KAVEH (test 67 See_Comment Normal eG FR >= 60 code = 98652-5) mL/min/1.73 m2 The eGFR is calculated u sing the CKD-EPI equatio n. The eGFR declines w ith age. eGFR <60 mL/min /1.73 m2 is considered a s "decreased" Thi s equation should only be used for patien ts 18 and older. Audrey g to the National Kidney Foundation's Ki dney Disease Outcome Quality Initiative (KDO QI) classification and 2012 Kidney Disease Improving Global Outcomes (KDIGO) Clinical Practi ce Guideline, the stage of CKD should be categorized bas ed on estimated GFR. Stage Description GFR mL/min/1.73 m21 Kidney damage with nor mal or high GFR >=902 Kidney damage with mil d decrease in GFR 60-893a Mild to moderat e decrease in GFR 45-593b Moderate to sev ere decrease in GFR 30-444 Severe decrease in GFR 15-295 Kidney f ailure <15 (or dialysi s) [Automated mess age] The system which ge nerated this result tra nsmitted reference range : >=60 mL/min/1.73 m2. The reference range was not used to interpr et this result as normal/abnormal . POC Clean Dev (test Yes code = 6672) Performing Lab (test [facility] code = 24647) [facility], [address], [place] [address]; Point of Care Lab Dir tiffanie: Rosalind Neal MD [facility] [id number] 12:28:58 Test Item Value Reference Range Interpretation Comments POC Crea (test code 0.9 mg/dL 0.6-1.3 Medicati ons, especially = 46852-8) hydroxyurea or supplements, garcia ch as ascorbate, can interfere with test resul ts causing a false ly and significantly h igher result than exp ected. If a problem is garcia spected with a patient' s result, a sample should be sent to the laborato ry for confirmatory te sting. Method descript ion: The i-STAT is an an alyzer used for in vit ro quantification of various analyte s in whole blood. Th e device uses a single d isposable cartridge which contains microfabricated sensors, a calibration s olution, fluidics system , and a waste chamber. Each test cartridge conta ins chemically sens itive biosensors on a silicon chip that are c onfigured to perform spec ific tests. The microfabricated sensors measure analyte concentration b y an electrochemical assay. POC eGFR-AA (test 77 See_Comment Normal eGF R >= 60 code = 28328-7) mL/min/1.73 m2 The eGFR is calculated u sing the CKD-EPI equatio n. The eGFR declines w ith age. eGFR <60 mL/min /1.73 m2 is considered a s "decreased" Thi s equation should only be used for patien ts 18 and older. Audrey g to the National Kidney Foundation's Ki dney Disease Outcome Quality Initiative (KDO QI) classification and 2012 Kidney Disease Improving Global Outcomes (KDIGO) Clinical Practi ce Guideline, the stage of CKD should be categorized bas ed on estimated GFR. Stage Description GFR mL/min/1.73 m21 Kidney damage with nor mal or high GFR >=902 Kidney damage with mil d decrease in GFR 60-893a Mild to moderat e decrease in GFR 45-593b Moderate to sev ere decrease in GFR 30-444 Severe decrease in GFR 15-295 Kidney f ailure <15 (or dialysi s) [Automated mess age] The system which EVRST nerated this result tra nsmitted reference range : >=60 mL/min/1.73 m2. The reference range was not used to interpr et this result as normal/abnormal . POC eGFR-KAVEH (test 67 See_Comment Normal eG FR >= 60 code = 90932-6) mL/min/1.73 m2 The eGFR is calculated u sing the CKD-EPI equatio n. The eGFR declines w ith age. eGFR <60 mL/min /1.73 m2 is considered a s "decreased" Thi s equation should only be used for patien ts 18 and older. Audrey tamayo to the National Kidney Foundation's Ki dney Disease Outcome Quality Initiative (KDO QI) classification and 2012 Kidney Disease Improving Global Outcomes (KDIGO) Clinical Practi ce Guideline, the stage of CKD should be categorized bas ed on estimated GFR. Stage Description GFR mL/min/1.73 m21 Kidney damage with nor mal or high GFR >=902 Kidney damage with mil d decrease in GFR 60-893a Mild to moderat e decrease in GFR 45-593b Moderate to sev ere decrease in GFR 30-444 Severe decrease in GFR 15-295 Kidney f ailure <15 (or dialysi s) [Automated mess age] The system which ge nerated this result tra nsmitted reference range : >=60 mL/min/1.73 m2. The reference range was not used to interpr et this result as normal/abnormal . POC Clean Dev (test Yes code = 6672) Performing Lab (test [facility] code = 64499) [facility], [address] [facility], [place], [place] [address]; Point of Care Lab Dir tiffanie: Rosalind Neal MD [facility] [id number] 17:01:27 Test Item Value Reference Range Interpretation Comments Gross Description (test j4iphFWvPUXjuNERLBcqE code = [id number]) YzlrhXtQPGzkYDdD3Izcr orQSuhCD3bBK0bkQexoFJ tvVXhZH7GJCQcGiTgBPAg cGVydzEyMjQwXHBhcGVya MB4WHDrXX8gdjwfSJgwII yhJKZmsjT9HXPokPSuE2I iZKFqKV0mbuvvGAL0NSpc mJ5emcHSWpfcWq6fmGUks HtcZjFcZmNoYXJzZXQwXG CxlHorLSEoNTs9iF5BSlq sM86qw8P2Qum4MHYbVXHk S9MkFP9nFODocFYaV24DU kotCYE4GMPZIffpRZDcLK 7Wt4xzIISufSBsPLY6FYs arCZfMRTfFZDyWUy7XATt IMaonUZeRI4pwXhgNtsdk Lzga1BqhRWeMMcwXGHvVE SyPImnPSZuTY2BPpDfZBM 1PGalLCbiBXe9RAu5ML5E SpLcJUKxTIK6VBk6LMArU Uy0UNlkOU3CNUBrJoV4NO D2XrNtPPRcYKtwWTi9DWP gXFxmIEFyaWFsIFxcZnMg MTAgXFxmYiBcXGZsIFxcb aJ6QVKvOFioNIXvQyWjPY BBOlxwYXIgDQpccGxhaW5 gGYOvX32ei4IRa5PnGP9J NJg7tnEyjxwnzY0xAEXur aBcVJoclYKcG6nkZ4EsWC VqKoZmZ4EgB6zuDU2oTQZ sz4V2axBiXgvqYTFaAIlf IERpZmYgUXVpazsgNyBQY IYfI5JuhA8aY1mmMLQtXC RbjfLCImWfLX7zYOCwqFK dnOAjqSltDxjmqMY9MAyh CvevgX3rzCLBXEPQRrwVB ptypaJmTB5YKLVTXjLHUF 81VkS2MoO4XLaekYocTtr yqoXvzLYcUsDKqF6izG69 CXfbADMgl1ImF0Wjw5ixt IAhXWhtGnoaaWPrmhE3NS zJHIAJKDbAIsPlTU4zAIi JTERCRUdJTnwyfXtcZmxk zxWtaJHnVvAJlZ1viH1jD Gf3PDAtJCgfr1auWYCcEM pae9QgPPrIWTDKVY5LCP0 awLU4K8xHXOYMLTgvkZtu KetebyGpgASvJiFZcT3oj JuguV7pcIFwN2tevDNheU VjdFxjZjFcZnMyMCAgZmx 1aON3FUPmNYirr2spLPJf DLsey9MiPArCGZIRCW2CB Z1ivYZ2MGoTOMIKAWzmAT I1GBcrkSN1t7grzOZli6q 1APtrYSP9rHaglAAubzld dHJjaFxjZjFcZnMyMCAga K0nUaXTXOfkXHSiWCelG6 DhIBOmE3OzsWIHuQ0wa0s hBOFqBXrVHJUnA4ImfVUq BPymY3IuAPgwFVNqpf6ft GluOiBccHJvdGVjdHtcZm hxvFE3GQotBspyiI4edBJ SDUDNPyzAZfhmtyLrRG4W GD6JJvOUHN10KCIbWiH9K 2vPJ0JVZAOFQEF9JXq9zG L2nZ81LSRjMYGlkYTiFAi pP582BMNuWLNbXbF0CJGk RTogl8ltHKCeWBjpy0KdK UiQUPCMXY6SFH2leGR3BE cHL3OFGSv3HAQ8XmjaaAT HIYYDWDMMKMmllJw6XUj4 fXtcZmxkcnNsdCBcJzFDf N7iyWkorR2kwPDlR3opKk RyIUCgPQCrf2BaQ7E2CEA xFGcet6swOLClJHsdc3Hd NGbENXPNRB2IHK1pyWP8B CrJZ2FMU1iMbZivyLB2Zn 1WfIL0pThnhEs3d6brgGN ge2r1XRzrZTO5aND3Hdon UC03ZVFsLHaaw9qaUEJhN Rgbf2QxSSzMHTAOMI0CPZ 3thRG2HYbHD1JOUMg2Wbx 1zG1TA8aobKl4VWg7zOka HffmnaGtsLHhHvNLjV0wa DlubJ7ycBOwG1seCoVkGF yqUYYrDDpvR4GaMEFghiB RBhVncpM9PHMsE6OiAHKx ujUTSilueKNzkUZ1ULBlr 9Sng8VhEF18SMCsbdPhcB DckT5lscFaFHZjqJStlBY 3YXMgbWFkZSBccHJvdGVj pIjuLehrcIB7GFtdOtlpz X0agBUKTUHZJomCHdhnql YkSJ9IDISBBfGVFP22RhH 8YtE7NAr4tYasQtqrzmTr oAApLzWKgI99DGbqShqiu ZV7BMrlClourI5ixNMWKW DSFovSDctdxtDgEO9FMKC MRY6SdSG7CgE8yIC6QR21 GXMdFMLycBIpKWlxZ660S RSeSIluBUk2cbShYHDbNR ylyfExLBPhyHEUex5tR7H uZHUuDQpcdiBTTUFSVExJ E7JfPKNMMKCAFIVaVfOFM K3fRpN4TkX7HH9rSxjvBi T5SpN7zFI2TVAGQLWYRWi LH7HwFJWQLYTZPLDxZD9Y VTvESGHHNHIQG17AAEYYN RIAV8HVS7bBHNBey4Rhh6 2wlTfTHAFHDBROQ39ZMDR QRVSQY1IBUDSAMNIYXRgO GUFVTp3XOAYTJHIKYH9TZ UdJTiAxXHtmbHVpZDoyNT L5KUu5DDc3zAMab4OmyVQ 2UoP9MnMvdVNZKIPYBGoZ KBZSGj1IRXKJVTFATO2KX aOsV4LWSQ1ZPp5ETCECTX NBQO4MTLwLOvGsA9PIFA1 TUn8XARUENSRYAJ0AAlOg ZAHHK2TYRzLMW5ybDTTHC XOLWNVxBoWODG3lSFKYGO 1VVGLPIJKBT79JMCKCEWQ UX9JNVB9WDQNqaVHRNLB5 JZ4fSWh8KWbuSYUcX2VrS 6BggnKfaFZwETMktuRbr5 vrZMN8QFBiaHOryOJlHqV oBjryCWE0GQRaPApzOZ1R HXRpKMY6EAzouI68qKNyR W6XHOMmYEjaMVLxEDEkug X5GWIcbVChCAI9CW6pvTw uaDCboyhhfgB5NO3OpI== Immediate Assessment Adequate cellularity (test code = 9837) Major Classification MALIGNANT A (test code = 9839) Diagnosis (test code = b7wovLIhIQUokCH1RgQwV 34) HLdu0zxj9ZuaHHghVUeVG hsdCXchoZrlw78oYC4xN3 1VH9hMXFoIcX0FHKwxoE2 Ruz7BMFqEDYsqCPbG657e 9ygd4qccdEcyEF6OCOtWN SsJ9TbMO4kNJQhfIYgL55 boRGhXOZ3UMZyOIXvzVMm OBKsHMD0CLZyjERdS6aaN SMmFK9dyfquJFsdUCdxFA DiuLM0EEHjuIHtX1WrSCE wEWomTXXefny4KeHtCb7f yNDliDjfBCvxF9nubU2tZ jI1TIvxB6kctG3aDBc3TL gxUJOriRT2yfN3DSUwmMG yN9NocC3zPBWpLP5evcw9 q9wiPGF1KZosGBWpWoK0p rF7PAEybQSzNVjzrLVawp xmczIwXGNmMSBBLiBMeW1 dfCBoj2JnZSNlaQkluEOr eGlsbGEsIGZpbmUgbmVlZ OecBBAmcIwkSFLfc960NU XkcphmDSYztBZtIQ2RASH MMFLNEPDmS0BCR7kQG46L GESHJoJYK8NIMeOtD2dMF ANWFjKOF4GjBEZBIXPREO BccGFyXHRhYlxwYXJ9 Comment (test code = w0sirDSsMPTllEW8LvMzL 9890) ENas9pvd0WqzKBlrROxJZ btpWCtofUbsd62uCQ3sW6 9PC9oNUInRcQ1VGLzlwX0 Fgg6YFIzHLIljBVqQ426w 7ije4hslfLxqCD6gIuuGS EyfwxvXfV7IKveWYRrzwj mPDc1EUotENUtwZF1NPAc gWUdQ7JyVSCgOC5cyux1O TN9ESdvOOAlSjU5KJGqlM JlZBEpoEmsPTibm524TRQ 7RzHsPATwjzDfyFhktD8j FoVhIAVYvJHrV3ZpuXIfg J0zdyItvjNxQVTzpHvkei T2UGQwV91cpMRtIpV8f0G 1VNAmk5ZgALDscPrmTKCe r7StPNCdVMkzv7Sfvq1zR HBhclxwYXJkXHBhcn0= Retained/Biomarker z1cvwHYxZDZbpGF2RoPbF Testing (test code = WOfn5snz7UklZDonDOeMJ 9849) enlVPnhjTmae34hSX8rI7 4AI3uVXVgNiN0OXUtxvG4 Uin4DMJqCCKhfRTaG413s 3mro2mefwUlaDN8bGlzWY JcqhqoUoD3CQjgIXFwdeo xWIu8MUudKLPlwTW7QTIh cWUcX0TrNLKoQR0awid2H TQ4VAgrLWSrAkN0JBTejJ UoOHChnFoyUYsbx623WZG 0EmYoWHEcozCyqGuouB7f ZnMyMCBTUjoxMFMsIDFDQ dquFYCcOBYILRGFTu0pED RjlQPoYZ4PKMBDOJL3P8S gpCJlBS3IAAURBRMLGxNP XGxpbmUgTURMIERROjNTX HBhcn0= Informational Points l7mmgSMnURJbuDHrRoYbO (test code = 9836) TGgTZGbm1zrYPMwdEGrSr EwMzNcZnRuYmpcdWMxXGR cMwDyq2wpt054mMCcf2ld QJJbQpB1oUMhTBIwcKDmT 698HRTpZMuvg2pbj0YxWU BruDDum6Q1KQCSVUxbJYE QDWw2k6jtSbIxWrV0qMMa AZehK5njrtSbsNMrEXTnA Mw6mY02NUIuiY9hbVLzUQ ghttQmVbV7EKnwKTVhOoW 2PIMshEXdAIHtS4eoKTFo OJwhWSWqTTqqaXLqXZI2u Xzyi1G1xZAihCYfmBvrAe KiKpEdKmWEd5UqWVv5bNt lH8UtGYLrXnI3wCSjPTVt PVqfHHMpEVAapnN0pV06Z ZoudfO9cOYbl1Lth80vk9 46eH8nsOMhLGQ0RKVzEDF ykMMzTCHcLNO9MCDljBZl B9gdDISjYV6xfbcdHKlfN YaeODOnpMR4TIBrrZRuL8 AtFFNgXEevLUQaxpg2DeU gNw9feXMtfMwkOCway9sy c5nysPTuApv2ZHLxSgSwC ephFYssm9Nrd6tiEXWtrs 1tKEH4dCPhfGhwy5T3iEI gIZTxzUGcetCkMGEtgh65 kZGmgLThiHGdix9dumVja MUggOHhGKB3sYJxoxDxQY YriIGyTZHcUXQvH5kfSiC oyvFoS5scG2IxRTIwHHPa UBGwUlEjglOfk1Xdt5Xbc YHbsIh1j9awQGAgEKBguR mry4rhVES3HEDfX5B2tEJ np9yaSPhvSUTorHR3wyQ1 YMZmwUElZ9KtdY8qFNUpL N1vohd0r1imZVV0VQogNU MqVuQ3bgV8XWNznIEyLAU nrMfdERmdr816MHC7UfLg NARbw3VeR0JjjMngY63ro MegP72eMCAffPhofE8vxX tprU4zDyKlQxEpTFutsPr qvQRaneosTFnnrqZ4TOrh khbaFFUzSIflI9kcWsFzJ WSgtEsbEJndf9IgQLWnNO VmSFgoyENSi70bIRLyq0L jZOMmhE8bfPPpWKnnmxMe eTK2BCosezBnLqRslnIvQ CEjaN8jROWeLH1yGJOnfj Ovkw5abuGrORCdGZIvF4N fhzusrVpgakYxJPRxxy0u lgYeGOP2HAHUDB3LWWQbH BSce51fGPBciCkkaO0ekF PbgcAjDWBnu3SzeI3keVM AUAGwH4rnPY2aKFdxl9Yl jEPjdFHijTK5UFWts6KhZ sVwjbVekHHppRTeN6EcfM pxB2uyXUHrTOChieKxyNN gz1DdSCJiaHX3jQYjIQ8F XeZUl70pKFUbRYJHplDgE BDqrUkwvHU5llS1rK5hYs VWlVotKLLdc1Sip3MyXWN yngYkypHmYPY0MDnirMMz tpxgIDmdrfS8SMwvdpmkX OSbOFiaN0vkAfSnFIDbmW shGXrdr2ShADXaQGRyOfr nbfE6BQh5nyFoIEviC7Ij rIDHj4PdlY9iZMOwVHzlv 5Y2hYKtQH2wN0bfYxJJxT NsoYC4pF4tm1l9YChdTy9 rQBFwjjhdcUfrjN2qOeWl LcKtUCwoMD1eRLJaG1pel ATzUFVwQCGtM4xlFrYbnT 9jaFxmMVxjZjJcZnMxOFx pICwgXHBsYWluXGYxXGZz MThcbGFuZzEwMzNcaGlja FxmMVxkYmNoXGYxXGxvY2 xbAoDzE9GqOZSjARbkoTR mO4wbpPQiKOZnDGIRKET4 TXIbCXX1WMiwVSeslXR6h 45wSAPMXYt7SCr9JHUqYT luXGYxXGZzMThcbGFuZzE wMzNcaGljaFxmMVxkYmNo MKVbADuaG2txLnUwU2IeV GZzMThcaSAuXHBsYWluXG YyXGZzMjJcbGFuZzEwMzN caGljaFxmMlxkYmNoXGYy BXaaG3rhFqHeFgEdUmipO XJ9 Lab Interpretation (test Abnormal code = 75757-4) [facility] Jbhtidmvqityzz1631-99-31 17:01:27 Test Item Value Reference Range Interpretation Comments Gross Description (test u7gzzEAhWHCioWXEPFqhE code = [id number]) NoxzmZsHLIsqAZvV6Kjim qfTYiiOP2dUD9iwUwynNY mvATlYU1OXTOkLiLaRAEm cGVydzEyMjQwXHBhcGVya EN3RSSkZF8povfbZJufWB osJGPbpyB1EONsjCSaG0Q eWNCxUM9sgchqREJ2PCas tJ0qxeRFOikpWg2prKHez HtcZjFcZmNoYXJzZXQwXG ZnoAwtLRQbKMz9hJ4SKgx uZ88xy5L4Pbs8XYUvAHXc P5NbFA5qTSWohEHfF21YR jnoPMT8WRYVBcyfJYNvNY 7Yl0rlEQEwrTKzVCV4VCs omVVmYWDvEZIxINp9LMKd PWwpyRSqUQ3dqSucKvdaf Gfaz2GxlXVqUBjyQVJhCT HoVMjuWNSfTE6ZWjXjYAQ 8OGjxMFhlADu1WCz4XY1A SwJfEKOpTOK9RMd2VLMrQ Gv6LKodZE7CUMCcYgL0WA V0NqOgCGWxXDnzBXq6MEQ gXFxmIEFyaWFsIFxcZnMg MTAgXFxmYiBcXGZsIFxcb jF0APToHUuqOCLwHjDfOS BBOlxwYXIgDQpccGxhaW5 hTQLlO75ik4FEp4PoWH9N DXw4clMzqmihvI4eVEWyr hGkSKttlSTvM9ekY3FpGW TrXaRpY8BuX1zjME4kYVT uf7Q9znIgDczsBAIrCWzf IERpZmYgUXVpazsgNyBQY OJeJ7BzyZ4dX7peBCGdKH HwsbLEIhAoZV5yZUTewIX kmGOthBydQkikmKZ1ZFth VsmciV8fiBKZJSOOEqdXM vqjtlTwHG2SZUMCJoEHYD 46IpD7EpI6HGmskBibOvq jpdVjkXMqSdJBaO9voC83 KEejYHVah9KeZ5Fty9gxg QQxHCpnVxomjCZllkC5PZ hIKLEEQPnCSxDaXE9yMKc JTERCRUdJTnwyfXtcZmxk djSnnRRgCyRBtC1kkC4lA Lk5UWJrDKxsj0avJLPhOA fku3PhFPzAYFOXDW7TVM5 eyRT9O1nJDOYUECsdoBvi OknzwdEpmQSyOhXPjZ6ed UhsrA4xcAFfI4sjuEZikT VjdFxjZjFcZnMyMCAgZmx 4kAK8ZRWsGLkep1luJZHt ATcul1MhWSjRUROCTO7GE V3qpCE4WKnULKRUUEerMC T9KFlkhCR8x9mgiNMgt0o 0JJzbAWU8jByhtRMfblfy dHJjaFxjZjFcZnMyMCAga O6sOfBHEHvmKMOcCMckQ9 ErOPVqG6ThvMXZeX4em1k gQFVxDOyAHRAmU5OkmJGb FWlkT1SfAYdfXKYsnq2dn GluOiBccHJvdGVjdHtcZm kzoKY5EAvgRzgrjA9mxCL VIABQYvyGVzihqdVdAF3I ED7SBiKPMA92NBQcQsE5O 5dGS6GVWCAGYYD7RCm6xN K8rY48DOFkHNXfuSUfDAm qG290OLUfXRGwIuA5AISc JQxan4xhDQIoQIquo2AbF GkNLXYCBW7WCV9ygBY2KS tTR2TOAMj2VEH3NsyllWQ ELQROJWVDXNmbaSm3HQa1 fXtcZmxkcnNsdCBcJzFDf F3igBopzT3klDOrO7rvFw RmJGLgAFJbf8FcO2Z6VUE dBMyuy6bpSPBkDBoqj0Js BIdCXJDHRH5LMI2pwEI1N BbZC4KKA7fHfLvcfKW7Oy 5VyAC5vBgjmVe7t7rhgBW kp4q7RGtxGWI5bBQ3Ritl WD74TKUrCVmxr1ugVQFlB Gjzs7RcATlUUPDIFE7DSZ 5fwAO0CYpWH4QSYKp6Ovn 2qK7RO9cmtJk2LYu4aWgp BrnytdJdxGCqGvTHnO9uk CzksI4eyNLuI5uaVdLtSY iwNXRfPVvoE9SxJZMmxbR JNfCbveC9MDElK8NuXEHi rrTKOewuwNFybTX1NPCio 6Okh8PaHC44KZWzmySrlW QotH4wxxWtNGStjYIqkON 3YXMgbWFkZSBccHJvdGVj fDswLpjulRB4MWitQqxuv L8zmXTOCGMKOacXQkyyxa RhIF6WREFCJpNRPI40TfX 9TwP1NYh9nZjqEnvjrmKu iDLoIgYTeW15WJhyFlhhs IS3RLmqCoeyaS8rxPMTQY TEZqpXArayimLgXT6VXKL USP3JnZK4XmF6vPC8AC52 FAKhPCSoiCAuLJbuI239K HOtVOjiVUu2qkXsWNMbBV pnovShTZMavUAEhs0wR6F uZHUuDQpcdiBTTUFSVExJ A2YtDQCYWHEZTCFzGrKJS W3hApH0SlA6WE8mZqruOt O4CeG9hDJ8KXCBDGPLIMp HO6CzAEIERMJVVAUsAP5S FAbGGOUCTRSHT56DHSGEG OUNQ7LKH0wPJMNuq8Ipp1 9wtOxMTWZJEZFER09WXYW EGRTGK9ZPBVIKVDJCRXuT LATAWm1EZKHZEVXRLE7BH UdJTiAxXHtmbHVpZDoyNT A8VLo6YVl1tOIah4MicOY 1DuZ5UpRwxZLAQZLZJUdL RNXMEh7TOTOWENZFYT8SS yZoF8PCBK1XLv4UROAWTY FMJC7YRSnUYoDoZ8QVEI6 KPs4IZWIEWUODFF8MTpCd BMPIA3QMBuBLE4qwLWRSA FTZMMWgPzGBZH9hSXBUDW 0SJNBSVRGYB48ZPIBPHYR EZ1NDVX0JVPAdkOFIGGC6 NP3cFKq2VCrmZWCzM5WpI 6SgwwMrbKQkGTUckqIkb9 wnMVX5KYGviJIxcSZaQcU oAdcgYBY7QDMuGActMH0G SVUgQDD0GIoekG60oOPnW F5WZFInCGtsTQIzVPJiwx J9TJKziNSkKRX7OA6sqKl sjJVynatdkwK6BH0TvT== Immediate Assessment Adequate cellularity (test code = 9837) Major Classification MALIGNANT A (test code = 9839) Diagnosis (test code = o2uxbKKlIABmrXM0ArBrK 34) KClz4hoe0PjjRPqyYEcKT kyoPPvhuQslp54zSH0hD3 7DQ7nUHLwEfI7KQKmigA1 Emg9SPIqXYBxxANuC591o 7cvd1izneXtpDU8XJPlXL PzO0NzCJ5cHYBtnTKhH04 wgBYwAZD5BDUuCKBqlKKd QCPxKVA1GQLzrOAjA1fgQ YVsFP7albyfQXwkRNknCG ErqZA3JJPjvZGhP7WfWNU rVKepOBRojeo9FkLbKy0a dMCycHotSEepO5xftK3pJ mS3NCeaF0ukkI9vISw0CV faPQKpoGK0doI5OEIctCZ cM1BziP7tCHMcSN5choz0 k6ljDNN5MYvrLSDuIgA2y qD7HBFygOOnSXepaXRdly xmczIwXGNmMSBBLiBMeW1 bjIOdi6IkYCVnyVbmbCDp eGlsbGEsIGZpbmUgbmVlZ ZbaMNLfeMneFOJqo172NA OymlelIYEtyWZsPB5BFEB BHKXKHRXnV2SBT8lOH71F TQXSOnNGJ5OZFsExB6rKM ZXYTtVGE4MfIJGUVDRAYE BccGFyXHRhYlxwYXJ9 Comment (test code = x3bisJOjLTUkxSP1ZnKvH 9835) LPye2uwm6CqgKXseIIkTK yacCGsegOmhi52iGL8nC5 2TZ0pJBHlBiD8SGKqfpG5 Zcm4AZYiNHRgdKHuG807a 0uqy2jiobDalHF2oVvrGU PntyurPdJ4DVwbVSUesqm kAFi5GHznDGAydDS1LKGx oFIzB2VyVZSkYN1cnhd0M SJ8YLviJYLeOpV5DMAvkT DpMVCicGmsSOkhp571CPO 6TgQgVPMawyNrzAvlaB2r WwTpQFIEgISfO8PvbNRap X8gcqAigbClTWAniHkmih K1GTFeN33qdPJzNmK9r6H 3LDSkw9DaFJYfrTrgDYGz t7GpNQByHOvvc9Zvpt2mZ HBhclxwYXJkXHBhcn0= Retained/Biomarker h9sfuDNrAAGxoFV2AtQwD Testing (test code = UKrm3ahr0ZxfPWcdVJqSC 9837) uwnWLsghEcrk34kEL3wR7 9WD9aJWGkNoO3KWZksdT0 Nab7KCEkEYBqsIHpK785l 4juj3iecoXabBQ4qBtdYG ShjgdmNbO0DTrwNRTfmhl aBOj0BInvSTWbwTE1DSNe cZYsH6JiMGEkOX4xdqv3H WD4NVbkPHRwLiS8FWXdeD YkQMNtrCryFCqnf105FCX 3KzUlVZCxooNxuFeozS0q ZnMyMCBTUjoxMFMsIDFDQ wxnHNJsHJCFQRBGZa2zPT DvlQXzJT1LGGELTKK5R3V gnSChJD3ZRFHHIMDIUaGW XGxpbmUgTURMIERROjNTX HBhcn0= Informational Points x5csbFEiNQEafHQpDzIoT (test code = 9836) KBdHUUzl9zkPPRehYDaEu EwMzNcZnRuYmpcdWMxXGR qJuJit3bds517fQOqi6jy EBZlFmP5wNWwOWAvaGPgN 860OZBaYVwla8aha2McLT CrdRYpk3P7UXLJMXpuJYW FZYj8w3qiIpSmQkO1mPZy ADncF1ymieRabAYzFQYqF Ug3gO79KZThqK9bmEVyIH crmgOxEyT9DEzoJRJhRkK 5NABotBGnYSDoB8eaTFGu IMezXHOmGIoyxQSjLWO1e Wnrq6C2qXGroCCikRooCy HxMaRhZyBKq3HpRLu9vZc yN6VtVPHnKcU4kLPzKGEp QEtnABQjPUEmbmH0vT83N MlyxaB5sJPfg6Ieu36ox5 79tL0ukNHhBPC9NCVlSDG oaUUfJQLfHOK8XANwaGYk A6tfZOHnYJ0brvkmIHnvE MumBWKbgBK1UCFitEKnP7 RiAIAvLKfvPUGxbbv5HkN eFu0pfGJmwCqmXVenq3ai y8razTStGdc7STMaLrYrQ cniCZans1Pby8rjQVMngw 1yRSK1gSVyyArni0S1tJI fCXDonVGlhlWgVGJpqp33 uWOtwTEmyBEber7oxmZnj FTizDXkRWS1eLSofrUuNA FbwZRjBSBcSMCdF7yaUiO zunPyI1jdM1OaJEGjGKRh QWZxYmMtgcPtr4Xzf9Bbw XDotDk8j9zrRNRdNHPcoX lyd2ibMFK7GDSsL2L1qHA pk6mjNFcbSULwuDX6ysF2 EQVzlGXuE2QosS9nBNBhR K5sadz2q8npTYK8LSfuZL QeTpO0inR2LJLoyNYpWQC ytOzuCAudu765VGL5IkAk PCUad9ZfR9QvkZdeQ80ma OzpO91tBAFhqXrpgN5lgI zrgI8pIwVrPjQlNDazlSa nhIPzzqowVJektlV7UOwr xdeaJREuASeyY0eoKjIyJ GStxEwfDIwhb3WsQJGoLI BcXTyvaOWGg69uWBMvk5I vSMOveY0fnOWdANgumfQa iJM5IPnummNiUjUdloYfY GQpuM6oIAIkBJ0dOAGeuh Svgj2zfzDwVUQpUEEzQ2O nclzbtAdxdzZvRXOhpk5h whZmNNN7AZGKNY2HIGSnX MFeh41vJDJpmQrvaW6jgN DlfcRySDCog3BndT0prBB DOVWaB0ojQK7aPTcma8Cc sDDucWRyoEL3KMKif9XaY qNtseGttEDpgSRdK2YsnI pgU3wbNYXxJMKdlgIykEN ev5ThZFOtqIL7oZUhDU2B MhWFt57eJGBtFYIUarEgB GKxaFvfrPE6mdZ3uZ8mOr QSvTrnOHLqn1Dis3XoFVY xgsYpveStOFA6JNdlbDNl jtuyGQxburQ8ACbuofulC NRhOZigJ5ytGoGrLISbcD roMZtrg4GzAKGpAHWnHyh ufaC4EHn9ccYrDQioG8Cj aZAAs0BdyE1kFQJeHFsjj 5S7gBRrXP2aV9cdTlFYeS GryPI2dF5lt4j2BRkxYo3 jJNOeplpzpWnugR6oSoSp ZpVgGLeuDZ2rRMKgM0gud MCiMGZmNIWzX7msCaJmeM 9jaFxmMVxjZjJcZnMxOFx pICwgXHBsYWluXGYxXGZz MThcbGFuZzEwMzNcaGlja FxmMVxkYmNoXGYxXGxvY2 hdMuTkK6PsFWZoGYddgEQ rW6juwFCvMYYcNAPGNGJ4 JOExNTV9CEjtUVtldUP7j 57gYKSQHJr2HEi0XVApFI luXGYxXGZzMThcbGFuZzE wMzNcaGljaFxmMVxkYmNo FVGtZLbrR1fhGwSuM1PfE GZzMThcaSAuXHBsYWluXG YyXGZzMjJcbGFuZzEwMzN caGljaFxmMlxkYmNoXGYy VCvsP0tkHnXqPrTfKgznB XJ9 Lab Interpretation (test Abnormal code = 96930-4) [facility] [place] [facility] - B[facility] 2021-10-26 18:55:03 Test Item Value Reference Range Interpretation Comments Radiology Study observation (narrative) (test code = 09089-8) IMP (test code = IMP) Biopsy should be considered. Known right breast cancer. Abnormal right axillarylevel 1 lymph nodes as described above. An ultrasound-guided biopsy isrecommended for further evaluation and schedule to follow. Findings werediscussed with the patient at the time of the exam. BI-RADS Category 4:Suspicious Abnormality PXN (test code = PXN) Christina Yates MD - 10/26/2021 CLINICAL INDICATION:Patient is a 66 year old female and is seen for breast cancer FILMS COMPAREDThe present examination has been compared to prior imaging studies performed atan outside location on 08/07/2019, 08/23/2020 and 09/06/2021. Images were obtained in multiple scanning planes. Real-time sonographic imaging of the right breast (including all 4 quadrants andretroareolar region) was performed. Real-time sonographic imaging of the rightregional eddy basins including ultrasound of the chest/mediastinum to evaluatethe axillary (level I,II,III) and internal mammary regions was performed. An irregular spiculated hypoechoic mass in the right central retroareolar breastmeasures 2.7 x 3 x 3.2 cm. An associated biopsy clip indicates site ofbiopsy-proven malignancy from outside facility ([facility] over read pending).The mass extends to the nipple, which is retracted. There are no othersuspicious findings in the right breast. There are 2 abnormally enlarged right axillary lymph nodes, the index of whichmeasures 2.7 x 1.4 x 1.6 cm. There are no other suspicious findings in theright axillary level 1, 2, 3 internal mammary or supraclavicular eddy basins. There is no evidence of any solid mass or other abnormality in the left breast. IMPRESSION:Biopsy should be considered. Known right breast cancer. Abnormal right axillarylevel 1 lymph nodes as described above. An ultrasound-guided biopsy isrecommended for further evaluation and schedule to follow. Findings werediscussed with the patient at the time of the exam. BI-RADS Category 4:Suspicious Abnormality Lab Interpretation Abnormal (test code = 84434-3) [facility] for Breast Ultrasound (Add-on Only)2021-10-26 18:55:03 Test Item Value Reference Range Interpretation Comments Radiology Study observation (narrative) (test code = 33167-6) IMP (test code = IMP) Biopsy should be considered. Known right breast cancer. Abnormal right axillarylevel 1 lymph nodes as described above. An ultrasound-guided biopsy isrecommended for further evaluation and schedule to follow. Findings werediscussed with the patient at the time of the exam. BI-RADS Category 4:Suspicious Abnormality PXN (test code = PXN) Christina Yates MD - 10/26/2021 CLINICAL INDICATION:Patient is a 66 year old female and is seen for breast cancer FILMS COMPAREDThe present examination has been compared to prior imaging studies performed atan outside location on 08/07/2019, 08/23/2020 and 09/06/2021. Images were obtained in multiple scanning planes. Real-time sonographic imaging of the right breast (including all 4 quadrants andretroareolar region) was performed. Real-time sonographic imaging of the rightregional eddy basins including ultrasound of the chest/mediastinum to evaluatethe axillary (level I,II,III) and internal mammary regions was performed. An irregular spiculated hypoechoic mass in the right central retroareolar breastmeasures 2.7 x 3 x 3.2 cm. An associated biopsy clip indicates site ofbiopsy-proven malignancy from outside facility ([facility] over read pending).The mass extends to the nipple, which is retracted. There are no othersuspicious findings in the right breast. There are 2 abnormally enlarged right axillary lymph nodes, the index of whichmeasures 2.7 x 1.4 x 1.6 cm. There are no other suspicious findings in theright axillary level 1, 2, 3 internal mammary or supraclavicular eddy basins. There is no evidence of any solid mass or other abnormality in the left breast. IMPRESSION:Biopsy should be considered. Known right breast cancer. Abnormal right axillarylevel 1 lymph nodes as described above. An ultrasound-guided biopsy isrecommended for further evaluation and schedule to follow. Findings werediscussed with the patient at the time of the exam. BI-RADS Category 4:Suspicious Abnormality Lab Interpretation Abnormal (test code = 02593-1) [facility] [id number] 18:55:03 Test Item Value Reference Range Interpretation Comments Radiology Study observation (narrative) (test code = 65699-1) IMP (test code = IMP) Biopsy should be considered. Known right breast cancer. Abnormal right axillarylevel 1 lymph nodes as described above. An ultrasound-guided biopsy isrecommended for further evaluation and schedule to follow. Findings werediscussed with the patient at the time of the exam. BI-RADS Category 4:Suspicious Abnormality PXN (test code = PXN) Christina Yates MD - 10/26/2021 CLINICAL INDICATION:Patient is a 66 year old female and is seen for breast cancer FILMS COMPAREDThe present examination has been compared to prior imaging studies performed atan outside location on 08/07/2019, 08/23/2020 and 09/06/2021. Images were obtained in multiple scanning planes. Real-time sonographic imaging of the right breast (including all 4 quadrants andretroareolar region) was performed. Real-time sonographic imaging of the rightregional eddy basins including ultrasound of the chest/mediastinum to evaluatethe axillary (level I,II,III) and internal mammary regions was performed. An irregular spiculated hypoechoic mass in the right central retroareolar breastmeasures 2.7 x 3 x 3.2 cm. An associated biopsy clip indicates site ofbiopsy-proven malignancy from outside facility ([facility] over read pending).The mass extends to the nipple, which is retracted. There are no othersuspicious findings in the right breast. There are 2 abnormally enlarged right axillary lymph nodes, the index of whichmeasures 2.7 x 1.4 x 1.6 cm. There are no other suspicious findings in theright axillary level 1, 2, 3 internal mammary or supraclavicular eddy basins. There is no evidence of any solid mass or other abnormality in the left breast. IMPRESSION:Biopsy should be considered. Known right breast cancer. Abnormal right axillarylevel 1 lymph nodes as described above. An ultrasound-guided biopsy isrecommended for further evaluation and schedule to follow. Findings werediscussed with the patient at the time of the exam. BI-RADS Category 4:Suspicious Abnormality Lab Interpretation Abnormal (test code = 76906-0) [facility] - Bilateral 2021-10-26 18:55:03 Test Item Value Reference Range Interpretation Comments Radiology Study observation (narrative) (test code = 96904-3) IMP (test code = IMP) Biopsy should be considered. Known right breast cancer. Abnormal right axillarylevel 1 lymph nodes as described above. An ultrasound-guided biopsy isrecommended for further evaluation and schedule to follow. Findings werediscussed with the patient at the time of the exam. BI-RADS Category 4:Suspicious Abnormality PXN (test code = PXN) Christina Yates MD - 10/26/2021 CLINICAL INDICATION:Patient is a 66 year old female and is seen for breast cancer FILMS COMPAREDThe present examination has been compared to prior imaging studies performed atan outside location on 08/07/2019, 08/23/2020 and 09/06/2021. Images were obtained in multiple scanning planes. Real-time sonographic imaging of the right breast (including all 4 quadrants andretroareolar region) was performed. Real-time sonographic imaging of the rightregional eddy basins including ultrasound of the chest/mediastinum to evaluatethe axillary (level I,II,III) and internal mammary regions was performed. An irregular spiculated hypoechoic mass in the right central retroareolar breastmeasures 2.7 x 3 x 3.2 cm. An associated biopsy clip indicates site ofbiopsy-proven malignancy from outside facility ([facility] over read pending).The mass extends to the nipple, which is retracted. There are no othersuspicious findings in the right breast. There are 2 abnormally enlarged right axillary lymph nodes, the index of whichmeasures 2.7 x 1.4 x 1.6 cm. There are no other suspicious findings in theright axillary level 1, 2, 3 internal mammary or supraclavicular eddy basins. There is no evidence of any solid mass or other abnormality in the left breast. IMPRESSION:Biopsy should be considered. Known right breast cancer. Abnormal right axillarylevel 1 lymph nodes as described above. An ultrasound-guided biopsy isrecommended for further evaluation and schedule to follow. Findings werediscussed with the patient at the time of the exam. BI-RADS Category 4:Suspicious Abnormality Lab Interpretation Abnormal (test code = 73278-3) [facility] Head Neck Soft [id number] 18:55:03 Test Item Value Reference Range Interpretation Comments Radiology Study observation (narrative) (test code = 18492-1) IMP (test code = IMP) Biopsy should be considered. Known right breast cancer. Abnormal right axillarylevel 1 lymph nodes as described above. An ultrasound-guided biopsy isrecommended for further evaluation and schedule to follow. Findings werediscussed with the patient at the time of the exam. BI-RADS Category 4:Suspicious Abnormality PXN (test code = PXN) Christina Yates MD - 10/26/2021 CLINICAL INDICATION:Patient is a 66 year old female and is seen for breast cancer FILMS COMPAREDThe present examination has been compared to prior imaging studies performed atan outside location on 08/07/2019, 08/23/2020 and 09/06/2021. Images were obtained in multiple scanning planes. Real-time sonographic imaging of the right breast (including all 4 quadrants andretroareolar region) was performed. Real-time sonographic imaging of the rightregional eddy basins including ultrasound of the chest/mediastinum to evaluatethe axillary (level I,II,III) and internal mammary regions was performed. An irregular spiculated hypoechoic mass in the right central retroareolar breastmeasures 2.7 x 3 x 3.2 cm. An associated biopsy clip indicates site ofbiopsy-proven malignancy from outside facility ([facility] over read pending).The mass extends to the nipple, which is retracted. There are no othersuspicious findings in the right breast. There are 2 abnormally enlarged right axillary lymph nodes, the index of whichmeasures 2.7 x 1.4 x 1.6 cm. There are no other suspicious findings in theright axillary level 1, 2, 3 internal mammary or supraclavicular eddy basins. There is no evidence of any solid mass or other abnormality in the left breast. IMPRESSION:Biopsy should be considered. Known right breast cancer. Abnormal right axillarylevel 1 lymph nodes as described above. An ultrasound-guided biopsy isrecommended for further evaluation and schedule to follow. Findings werediscussed with the patient at the time of the exam. BI-RADS Category 4:Suspicious Abnormality Lab Interpretation Abnormal (test code = 61183-5) [facility] [id number] 18:50:10 Test Item Value Reference Interpretation Comments Range Radiology Study observation (narrative) (test code = 03847-3) IMP (test code = Finding in the right breast IMP) requires additional imaging evaluation. Recommendfurther evaluation of this finding in the right breast, which is of concern.Known right breast cancer. An ultrasound is to follow for further evaluation. BI-RADS Category 0:Incomplete: Needs Additional Imaging Evaluation PXN (test code = Christina Yates MD - PXN) 10/26/2021 CLINICAL INDICATION:Patient is a 66 year old female and is seen for breast cancer MAMMO DIGITAL DIAGNOSTIC BILATERAL W TOMODigital Mammogram evaluated with Computer Aided Detection (CAD). COMPARISON:The present examination has been compared to prior imaging studies performed atan outside location on 06/05/2018, 08/07/2019, 08/23/2020 and 09/06/2021. FINDINGS:The breasts are almost entirely fatty. An irregular spiculated mass in the retroareolar right breast 0.4 cm from thenipple measures 3.6 x 3.2 x 2.7 cm. There are associated pleomorphiccalcifications within the mass. An associated biopsy clip indicates site ofbiopsy-proven malignancy from outside facility ([facility] overread pending).There is overlying nipple retraction. In the left breast, no dominant mass, distortion, or suspicious calcificationsare identified. Tomosynthesis performed in CC and MLO projections. IMPRESSION:Finding in the right breast requires additional imaging evaluation. Recommendfurther evaluation of this finding in the right breast, which is of concern.Known right breast cancer. An ultrasound is to follow for further evaluation. BI-RADS Category 0:Incomplete: Needs Additional Imaging Evaluation Lab Interpretation Abnormal (test code = 79937-5) [facility] B[facility] with [id number] 18:50:10 Test Item Value Reference Interpretation Comments Range Radiology Study observation (narrative) (test code = 48871-7) IMP (test code = Finding in the right breast IMP) requires additional imaging evaluation. Recommendfurther evaluation of this finding in the right breast, which is of concern.Known right breast cancer. An ultrasound is to follow for further evaluation. BI-RADS Category 0:Incomplete: Needs Additional Imaging Evaluation PXN (test code = Christina Yates MD - PXN) 10/26/2021 CLINICAL INDICATION:Patient is a 66 year old female and is seen for breast cancer MAMMO DIGITAL DIAGNOSTIC BILATERAL W TOMODigital Mammogram evaluated with Computer Aided Detection (CAD). COMPARISON:The present examination has been compared to prior imaging studies performed atan outside location on 06/05/2018, 08/07/2019, 08/23/2020 and 09/06/2021. FINDINGS:The breasts are almost entirely fatty. An irregular spiculated mass in the retroareolar right breast 0.4 cm from thenipple measures 3.6 x 3.2 x 2.7 cm. There are associated pleomorphiccalcifications within the mass. An associated biopsy clip indicates site ofbiopsy-proven malignancy from outside facility ([facility] overread pending).There is overlying nipple retraction. In the left breast, no dominant mass, distortion, or suspicious calcificationsare identified. Tomosynthesis performed in CC and MLO projections. IMPRESSION:Finding in the right breast requires additional imaging evaluation. Recommendfurther evaluation of this finding in the right breast, which is of concern.Known right breast cancer. An ultrasound is to follow for further evaluation. BI-RADS Category 0:Incomplete: Needs Additional Imaging Evaluation Lab Interpretation Abnormal (test code = 68909-8) [facility] Outside Interpretation 2021-10-26 14:09:59 Test Item Value Reference Range Interpretation Comments Materials Received (test x9qreXFoBQIkaDUwJoEp code = 9973) ZGOuJEUin3yuYZJedYQf ZzEwMzNcZnRuYmpcdWMx VYOdLlAmp6hsd920aILo e7jhULHzAzW1zVLtGWEk rQVsE005MSGbMUuid8oc r9QuLZTljZPnw8U3FKYD pbwggOf5sOupT35yk7L7 CfopJ4zqHUAtLBFkK1Eb QN5dMFZhFra1UVZ9MRM8 BHHuSZKlG9DnES7uFUKe yFTpIIq5g8czdTkaAXMh MEU2l2beUDqfyrZsKP8i bl1bqUy1d8bqowAdUGBu PQQhlGWTHSDmS5LzpKsv Xc3ahYb1oApmHzabWHJ0 Lxr2AI8jwc89ths6vUlb VTNqbrhuDpW2AVsdHDCf pnkmUHc2NCpwLFEphUgd MFxtYXJncjcyMFxtYXJn dFZ4LSElrTSsO6KcLYBb WRwkMJAfsex9CtIfYb4c bTMbeGnwHJkpp1eiu9mk sBPhEkg9GJTbGrCyBmgu STuja2Mgd5rcAEMgvg8h RUY0qQAqgWsmo0E5yMOd DMNkdMCcblIbPNDxzl00 yPKjoNOkpTUyjl0ihjPn gLAubEGjJPN0bZJsksYt ZTOokYOdBMIsRH9wzCVo JYKvoJ1waukdBWKfVkNb ppqeXPTjwYxtmyAzAy1b yCekVSP3DDtuL8ylkG8b LqW7ZHulK4enbV3wGRi8 UPeymWG4QZXtbO7pJL3h csrwj4anVaImQC4mjmfz r6tcSsExTQ6urvi7l5dj TCF8FWucPDIkCeN9tgT4 NDBcaGVhZGVyeTcyMFxm z813VDG5WfLpMHGev6Gu N2XuyHhoJ17scLymZ30o BHKasZokdL5dyOnvzY3u YsYlOjIdFBb2oe19AZs2 lgtswIgpMXc9gfBxHWDe EPP5QCGciGPtIHTbM1u4 jmEtMEBrAGT4DWBdjZRm BBZiN1d5cxMrXVJ9GZp5 cnBhZGRmdDNcdHJwYWRk YjBcdHJwYWRkZmIzXHRy zBVqfMNtlWJeeX5mmRec ZXIrcUPbqH4hRVU5XIZy cmgzMjBcdHJoZHJcbHRy as93XMOnuwFqtAUiqSwb pGXcUIC6QTDvUKFeCXVg RUQ8JGRiKhQnjsLuTWry bGJyZHJiXGJyZHJzXGJy PUC9ZGOyTxCziyExVNbi bGJyZHJsXGJyZHJzXGJy RVA6UEFtScUnrzTzWVag bGJyZHJyXGJyZHJzXGJy KAG9XQExRvFtpaSuKRwf bHBhZHQxMFxjbHBhZGZ0 A6chaYUdPFTwNZpfhDFi HVLuC9tcgSUjTOnhFHPa cGFkZmwzXGNscGFkYjBc A2qaYLTyDmKyT1YjzGn9 MDAwXGNsdmVydGFsdFxj mAOqWVT6OLMkLKOxGYPw DZE5ZZBvImZkraTrZRtl bGJyZHJiXGJyZHJzXGJy BRS5NRJgEqSxgfJxZQeq bGJyZHJsXGJyZHJzXGJy MYK7DRVgBbGxwjIuXOho bGJyZHJyXGJyZHJzXGJy TGY4CXVsCwCjjwRzOAqw bHBhZHQxMFxjbHBhZGZ0 F3rimNPcXFUvZPuibALg ONYvJ3fjgWOoVSimSUEi cGFkZmwzXGNscGFkYjBc M7syFMJaViBvA2CslUp4 NjAwXGNsdmVydGFsdFxj eWBdHES1GVHdZAKpDRGq UCJ0BSNyZvXyskJnUBvx bGJyZHJiXGJyZHJzXGJy WAG2NOGmOoCmycLcJDjx bGJyZHJsXGJyZHJzXGJy WXI4UCLaOwHwjuFeEPri bGJyZHJyXGJyZHJzXGJy BRY0KAUrLfEhhgCfOWvt bHBhZHQxMFxjbHBhZGZ0 J0whtXPuKIXbVBvtmOSo YZLkF8nseUOqBTefYIJo cGFkZmwzXGNscGFkYjBc P9gsIBRzGxBnR8WocIx1 KdXiCJPlbuLzsB75Obps p4SxBNJzTFA7XDmdIKbi bFxwbGFpblxmMVxmczIw DHlwqynhDJZyORblO3oi QhFoROCunOzaPYppg5Vs XGYxXGNmMlxmczIwXGIg MNVwIMPxfZ2lCcmmD7Wj fS5tOEtcDjynW9oyMQJc p9HfpE6dLQmvhGRirqry MVxmczIwXGxhbmcxMDMz IZzoS1eaDlYlHSBnpRfb VTjfo1JlBKAtRKPzUsss heEiRJf3kaAoPZTdwCxk tNJmGCaiphHinHhui2Gl zlIhqQuySAKnFNt7lcHu fobjnKg3qZBqoRgaNRQv mZbiwZ5fNpDvRnRsFTuc bGFpblxmMVxmczIwXGxh rngkNJQmOGkzN9vxBfZp ZTZlnCnqZWzna5HsZILd THNcNknpopHsSUMrG33y bGVjdGVkXHBsYWluXGYx XGZzMjBcbGFuZzEwMzNc aGljaFxmMVxkYmNoXGYx VJocI1ckNqDoZ9AzBCKh IyTaeKPnZ7ozE7FrrAlk YXJkXGludGJsXHNzcGFy IHN7fWAqxbMxxPGxxYBf DYDdAEmgMVN1lPVdkmsq aMLjaruePOywhvM4LBWv YWluXGYxXGZzMjBcbGFu ZzEwMzNcaGljaFxmMVxk CtAuJGCkLIohQ9wxBbTe Q5KiHYMnHsZtAyARVSYq aXZlZFxwbGFpblxmMVxm czIwXGxhbmcxMDMzXGhp N1snUkHiQOSwuKopLRmj d1FxLNKfZTGlSqpayxTp KHi4qyDyXMCinCqatL24 Cqjshd69VJSdo1ujOFCj I7EpyGFbBPIzzPZpMLxm MDhcdHJwYWRkZmwzXHRy cGFkZHIxMDhcdHJwYWRk ZnIzXHRycGFkZHQwXHRy rRPdOBN0J0r8rfUqUSLc ATl7qaEtWIJjOgOxkEXz UVB4ELp5MzxaziL9hBFj T1p9VapaaoCySRzawULe fu52PHOjruIjhTPzlBkf aSBpLXR2KVAyPSNmFKAy DNI4WPLvCeRxorWxZQxf bGJyZHJiXGJyZHJzXGJy FGJ4VWZqOqKljnWeEZzg bGJyZHJsXGJyZHJzXGJy IIZ2SKBmLiHimvSiBIsw bGJyZHJyXGJyZHJzXGJy KJJ9JUBwUkFfilSqWEsv bHBhZHQxMFxjbHBhZGZ0 C4rhkIMcUDTpMFwraUMb ZLOuI3eiwTDdZYsrYOWg cGFkZmwzXGNscGFkYjBc N2ibVUWjAaCvN9CthUm0 MDAwXGNsdmVydGFsdFxj jBOeUUP3TZEyVIWuYTMf YIO7NUToNzNjchJcSHnd bGJyZHJiXGJyZHJzXGJy DII9AGYoUgHnnnFvFOvw bGJyZHJsXGJyZHJzXGJy DHP2DXFpXtFiyxPaIFvn bGJyZHJyXGJyZHJzXGJy ORK6RDTpRgVrumMuOUia bHBhZHQxMFxjbHBhZGZ0 Q4fkuGKiXVVwXPnmrPZl ZLSfL1aepDRbHVxxMPGe cGFkZmwzXGNscGFkYjBc Z5hmSOAnNbRcN1WxsZl1 NjAwXGNsdmVydGFsdFxj nTDlLJG7UMEaQHHbSYKp TJN0NSAqEtBuhvFoNNwc bGJyZHJiXGJyZHJzXGJy ZAF7MVPdWhMnwwAdKEvr bGJyZHJsXGJyZHJzXGJy SYZ4JKBgEoWzdpHcOFed bGJyZHJyXGJyZHJzXGJy XIF1JVLsElXkpoOaWCyg bHBhZHQxMFxjbHBhZGZ0 Q2zxkHWqEUGqYWaiaCWg OWOfE4sejZIpCZnaXSBp cGFkZmwzXGNscGFkYjBc Y0qhOQXtZrYqL2VqnHp4 GwAcNGCnzaRosX72Ounk q8OmEAUwTNQ5WFsuQTzy bFxwbGFpblxmMFxmczI0 XHBsYWluXGYxXGZzMjBc bGFuZzEwMzNcaGljaFxm TYezYvXnTDNdJIykW9wl JiDrQ8HeQWGxWqTrRF4e AySdLRR1GMP4TLE2EAYJ IEEyWSGLL9YUUkydAROM L9EqtYxyzF4sPcAaYhLz NTdyBN1pERUyQ7lxsJOw KZHhFCIsG7jtVaZzzF8p aFxmMVxjZjJcZnMyMFxs dHJjaFxjZWxsXHBhcmRc fC78Iumrk6KlYSNnFQB0 MFxzMFxxbFxwbGFpblxm CXangdL5XKGxTFmuJVYl XGZzMjBcbGFuZzEwMzNc aGljaFxmMVxkYmNoXGYx IMepQ2efXtOsN1SkFAXw ZtSfIZ9sEq5cVTWoSHXh YWluXGYxXGZzMjBcbGFu ZzEwMzNcaGljaFxmMVxk HqUdDMFsJBbaP1csGqMy Q2CjFEFiGyAnnTLtL6lw F9HqbRevYJZaRCaxkAYi WQNfeGRxEKR2fYPsnqCc lExrjEqaoO7vTrAvVmIp NFxwbGFpblxmMVxmczIw DZqbcnyiSGUzESymG6tw WjUiFVSkiQbdXTgpq9Am XGYxXGNmMlxmczIwIDUv JB4wCYZeNWLsPLcyMKVk XGZzMjBcbGFuZzEwMzNc aGljaFxmMVxkYmNoXGYx PZopH6oySmPeA1IcFHFx CeVbjMPvV8zwV1SzoEdc ieCtqMstg9zznJLgJLrr d5DoywHokUbiJAMoRVLm XHBsYWluXGYwXGZzMjRc fSezfK6iSmVfYzAsDQwz TY1oZZWwV6knpQGoWCWc LAXrK4xmLmHbdH7swNmt MVxmczIwXHBhcn0= Diagnosis (test code = p4inyKEwLHRyyFQ8MwTv 34) BLCay2eox0XrxVQhiJWi ALwegPEntvXfig87xDD0 eS54WA2iZUDlRqK2GOEg ohU1Xme8WKKsXKNtdPNt L241l2mlm5rduoWjqVB2 CHKmDBBxH1PhXC2tNPQd sSPzD17ynTCqCPX0DHCb JUOrtZPiRKAjNNH3QXPl tIHvQ8hvJJEaGN8tbpoy UKshRRhxSIQteGL3NGEw tQFlN4IxXIAxSQepLIUq rvh7IzIbHe4jjZFisVdy MFxwYXJkXHBsYWluXGZz UjWpU1LyTI58kOCgRAVc QPWjXq5uFgU3JFaoTGKT WkcuXWYRHY4UT7LpCAGu TXOCXRLlo3fxDEF5EMTz o32mQA1uZf2hOAJsQIol cGFyXGNmMFxwYXJcbGk3 MjBcbGluNzIwIEEuIFJp N6u1SGQvTXGynLU9lEPp rzUyep5abuCsiD7op1fb VVYgZOF3GFpkxRyvGDuD IGZvciBFUiwgUFIsIEhl aqTvLCZdUAUqwE00LuHf ikKPLEt6EOPpumnkQAJb lUpwBMTjLBcrvpX1QYJj GS1PYMCWWaNpVCMBGIZZ ZQOSKmOCMh2AMLmmZp1v P6VXM6jJUIMLUFGAHspu RVYurFUqZC7WOVBTDpzM CC8tV8TUUXSvJtCtBgSm BMAcGpKsOY7vwGBcJZSs azAXoSLmyBK9BOKfCRwO OlxwYXJcdGFiIEVSIFBP X2pWAIJPICrsXZYyANTc LulgqLCpYZbxStI0IKiy qR5zRVWqSPLCOF9DI3DR BLCQYBb5UVPwDEQlcyDT CZPpEwBCNB0XC8TMLKWS XNstX70rBEUvYvmlzMNm PObnTEA5BS7TAEZEIPHR TFkgRUxFVkFURUQgKDI1 ZGfnoVTvPDfnPZI5TKkh iW8xABNwPRTibltziCHf NjBcZmktNzIwXGxpbjIx NjBccGFyXHBhcmRccGFy fQ== Biomarker Block(s) (test r7khcEOfFLRcdQC4SiPy code = 9841) VIUwt9idi3DzzVEacGGr WPqdjXDxyuAuzc36pWK7 wL94CG7nQSUcFaO0LQPv odF3Nks4WXXgBDXzuXMc H209k7ztb2skddCbjUR8 yGkdPPWapnyiZtF8KKjn ZOSxeddfNXo6SPhfLYOb rON0QQTakVXgJ8TpZRNu KF1pwqo7UFM5LQanYBFa HyY4JFVkgYLxNNOfgMhg DSxrq364SXR4HbOwXTBw dgExpIsolO2aTxRhDKFJ MSwgQTRccGFyfQ== Disclaimer (test code = x8qrdDQdJBDqlYUaFlQh 9844) SNAfSVDzz4ucBJQtoWXl ZzEwMzNcZnRuYmpcdWMx XGEjQsEzz1kci541nBYv h9lyDJRqUvR0oGKiUBQm eGPeM588RFGtHOzbw0vi s6NsARMtsSSag4A3WGEC jplrzEi5jFkhQ83ua0V3 YyzjK1mkEZFjLVHvU2Wo KW2pVACaVrd9MVF8QCC9 CNOkMOHaL8XlKB0hKHMg tSQqVSc5g4lfrFadIZOt ZGF7x6sgHHuimzZkJQ8x mk4gqEn8q7kgzzHrWQSz HSElrTUHWTHcW4SpkKnh Tr6mtQv2qYkxLhsxMYX9 Kag4IM2rzr59mki8fZqw MCBphnklIpX8IWhxRFHp eeimNMe0SKymVENzgCM1 PSSvoKReE9ZwCQYgYZ9f wca8EYZ4NXhfCIKcIdO3 NDBcaGVhZGVyeTcyMFxm k810BOG1EbIhNI0mS0Gk a6X3mO2bvOLqQDAzcPWv NfRcBOIitn1hlHHzONjd i6SxUAH8asB3kKGsiMWb LZVnHQ72Bpdtf2NrWltm QVY8LBObgsZho3Otb5yh SuIudoDmQ2dtT4AvMWAw HCKjGVBrDzDheqKuh0Gp f2ZrmXOlbUr8s0vuWRPt GJLvcYwxh0rfNHP3HOWh A3Z2zVQbn4xlUWcqZEGj fFS2hfC4NOFjnKPmZ1Or oC7eMNExBJ7bkmp6p3kv WME1HAbbAFVxSlS9icS1 NDBcaGVhZGVyeTcyMFxm g707PMU4KcFqBDFpv3Wd J2FahXrhF49vsOswW28x MHZwdGewpZ9dwWydbB0q ZjBcZnMyNFxxbFxwbGFp nictKCctdgM4YNvwqtbv ZQQsUBiaB8iwCbLuDNZy gFlkSOnma0KlUOBqPLWo NfitlgB1ACWAs63yBZWz s2PhOTBtzE2wkANqQHkb lxEpcXQ3VHcxsnEmLcZk coPqAEHodM3fLTEuIO4k UHUebbUpoq9apyPiNDHw WRYmO8DapbmpjVfjgjAb IWKjsp7xxqPkGFS0PODR LG9ZOKWhJUFpl84jWKSz wQcruN1hyACxnvJoVSLi s0MrxS2yxYQCHWYbA7ow NG3mNLpci5OnfHJjtRJu lRT2RUFge2VjPbAsqpDk gKFbjECsH3FioPdrW4ne ZALqWTZgbpOvmNHep4Vv MVMwoNO8rSIwQY6GHoRY e68rHRTaWGKTtgQrGGIv qDdgaXA4jkK5wR7jGjYE ZiBhcHBsaWNhYmxlLCBj b222iq2xswZ9BMBeFBBv zboxq9ShQBTbLGMvdJ93 WQXsAXZrth9wynghhIZn boSuM4Wfbfm7uG2bLNDs YWluXGYxXGZzMjJcbGFu ZzEwMzNcaGljaFxmMVxk IuZiPIIoZNnxB5ckHrXh ZnMyMlxwYXJ9 [facility] [place] [place] Interpretation 2021-10-26 14:09:59 Test Item Value Reference Range Interpretation Comments Materials Received (test p8cjwMCeWCYmfBEsRcAp code = 9973) HAVmAQXdn7jaVNJxtALz ZzEwMzNcZnRuYmpcdWMx LRUcDhTjp5dfi790aYKy z2ruCYPdFmX3rBWgMHVg cTRhM047WOTnEGant6mm b2KoFVWjzRAyk5X0LITE berwuXc7qCsqT76pp1Y3 ZnnqN7aoDLAlJOWwK3Wb YG8gTBHpSna8UZM7AFI0 SLVyIAYaU6AuNH9iWOFx hRYkZBw7i6hkeNwwLUIx HHA9v9jmWRgwqkMtDS3y iu3huJo1b6nxhzFnAOBx JUWgqRDZCNIrI8AhaVlr Bz6moBi7wTemJlqqVOB8 Ljt4JV6rac03ucc6xOwd MYEhfdsgVrZ7UYepOOPy qkdtKMp6HUbyDYNzfRvn MFxtYXJncjcyMFxtYXJn yMZ9LYPoiPHuM1EqURDo HQhxYSJiene1KiEqEu1k cUZjuTkbLYjvx6tal7ou mQUiFvg8MTElAdKwQzpe BMfmi4Bni7bnFDZrdo5k FGQ4hRCohIhyp7Z8xHUl HICefDEtfvUxDXVttz35 oPPjfAQfhHRnnt0ucdTa jTGxeJCqYCF1eJZifjYp WMOzcNTjADJfWE4pnXFz RZYhsS9hycgqRAZuInDy lsjyIBGykDanpdJjOw9o tPqtDZE1IRlgQ3kcnA1z MbJ7LCuwM1aynR7oRMm8 ZAqvlJE7NDIgmA2pTE5o ydevu1cpToTzMV4otean f7yyBoJgWP5ofoz4c2un HNW5QAviHNSqQtU6zyW9 NDBcaGVhZGVyeTcyMFxm y838OVT6NoIuPNNqz1Jk G9PnzQosJ79eyArbJ18n XQAvcFfqmC9fpBrsnK5j VlSwJmFqCUd8jj44LLf7 zyrjgEpnTVr4naPxGXOw PSA5XWFqoAZcOQClP5c4 muXcYWPyRRG2TFSodJEw YVBvJ7p6wgHpSZH8YPo6 cnBhZGRmdDNcdHJwYWRk YjBcdHJwYWRkZmIzXHRy oEAauTWiqTXbrV7nsYsh YTJoaLSkvM3nFUA7WCWo cmgzMjBcdHJoZHJcbHRy ca31KBXtdiVgqIAhxIkk cPXtORD2KFPyNRJvLUQf TQK6JWCtNsApxyXpDZyq bGJyZHJiXGJyZHJzXGJy ADZ9RTRaUcLpwhZwNCgt bGJyZHJsXGJyZHJzXGJy URL1XSNmGfUbcfEdGVun bGJyZHJyXGJyZHJzXGJy OBN7KEGrIoFgawZpRZkb bHBhZHQxMFxjbHBhZGZ0 S2vgdMHlXSDlAUoswUDk CNBoR4ydsLKpXBdaQAPr cGFkZmwzXGNscGFkYjBc T4hoPLEuAnJlN1OovTx3 MDAwXGNsdmVydGFsdFxj tKTeJKW2PITcFMCdKEYq NNT2EJScZlEergSqTUdp bGJyZHJiXGJyZHJzXGJy XMJ6NDNlFtEmjbZgCAvr bGJyZHJsXGJyZHJzXGJy RWG6WKFrJgLtntPcQWsi bGJyZHJyXGJyZHJzXGJy DKA0YYIcXyKqeiWiJHou bHBhZHQxMFxjbHBhZGZ0 S8ywqTVdSXBlUSbygMVy KQUjG4zmnVHzWCdtRRKj cGFkZmwzXGNscGFkYjBc S0ciEIQfCdWfL9EflNb0 NjAwXGNsdmVydGFsdFxj oBHbDSZ2GOTwCLQrYLPl GZW7XHAfNgFjdlIwPCgs bGJyZHJiXGJyZHJzXGJy LOY0XITxCpMfagIcEHpc bGJyZHJsXGJyZHJzXGJy XSZ0IBYbSuKioeXlXMvh bGJyZHJyXGJyZHJzXGJy DRX4LULtZvUegtMxWKaj bHBhZHQxMFxjbHBhZGZ0 F9xzyEAeWGZoTUtckGZg IJTqN0lgcFErPGzcDFXg cGFkZmwzXGNscGFkYjBc M7pjYLAkCoDzY0IcwTn3 CjHzIFRwuwKtuL76Ghym w7TuIKPwOLE8STeoLZvk bFxwbGFpblxmMVxmczIw FWptovftPALhJRwuU9ld RzXeLABkgYfjIKidj5Iv XGYxXGNmMlxmczIwXGIg FTExVYGywW0tAejnJ1Ve zF4aOWamKyvxP1ghAURm c0NkmM2tNGltmAYykrya MVxmczIwXGxhbmcxMDMz ZJlvB1dqYxLqULEbbOzz EJibi2OzDDLsKTHpCjjc ohHpDFg7kzCjRITkwPrp aIZtCLdzqyMnpGgwf7Hf llCybBneADWtRFo5ecOv rlknlLg9vCDhoHetYWFc cBiiuA8sEdMzMbYdUGgp bGFpblxmMVxmczIwXGxh rnsvXITiCWlkW5lfDwXq WDNdxHvjMNwdu0HpHPMb STLuBykdoaOgCNGiB72p bGVjdGVkXHBsYWluXGYx XGZzMjBcbGFuZzEwMzNc aGljaFxmMVxkYmNoXGYx DDomQ4qkNwReV6YiIQAc JxFovKQiC9gtZ6UxxJql YXJkXGludGJsXHNzcGFy GCY7gMMhsxKakTWlwZOk DBUqMFmqFBU9mOPflnuq mYFvmkpsFJnbblT9TWLh YWluXGYxXGZzMjBcbGFu ZzEwMzNcaGljaFxmMVxk WfHbYIEdZTufT6heUfXe O7LnXURqLnRzIxHIQKEp aXZlZFxwbGFpblxmMVxm czIwXGxhbmcxMDMzXGhp K1khHcEdKJAzmMecJTxa c1UrEBUaEFPbXpudghIj ECl9reBpGYVicLanyS96 Kknfli22EKRnu1hbTPGo B3HwnFUaZANkqSGbGGot MDhcdHJwYWRkZmwzXHRy cGFkZHIxMDhcdHJwYWRk ZnIzXHRycGFkZHQwXHRy fYZeGWX5I9m2tcIuHBYb BBc5lkDaTMRlQsBydQXb VTS1GWv4NndoljC4bLGj O0g0GrzrahIyUDwldZUz jf44BKYavkCsmUUfkWfj lCFgCCH8ZLTiONGsELAb KBU4BVYgSnSwlqSnBZtk bGJyZHJiXGJyZHJzXGJy CAI1ZPVaRwVigqQiBTdi bGJyZHJsXGJyZHJzXGJy CEH5GMEhQkVpcfJsFYqe bGJyZHJyXGJyZHJzXGJy UIZ1QQIwMrIitkVzGRwp bHBhZHQxMFxjbHBhZGZ0 P8xrwKGrCXClQPaefMGt WIYkH8xvbZFnYAshQRCa cGFkZmwzXGNscGFkYjBc V7bzHUUkKvMlY0YwqPk8 MDAwXGNsdmVydGFsdFxj pGUtSIJ8JDBlQUZtUDJd EMQ8MBTuJfThbhJuJTvh bGJyZHJiXGJyZHJzXGJy JDQ1BQWxQzWsqtOkXMhc bGJyZHJsXGJyZHJzXGJy JFE1DUMoOgHtyyJyEVnv bGJyZHJyXGJyZHJzXGJy YGK3BDEvMgLbjmXwXPow bHBhZHQxMFxjbHBhZGZ0 R4fazDVrORBdLPushABt BLYyP7hiyCEgBJxqZRNp cGFkZmwzXGNscGFkYjBc Q7isJFCfGsFfY9LyhUa3 NjAwXGNsdmVydGFsdFxj tIFbSZV8NQBuOCFaLUCo MMQ1VIWuIjGenwSqWGpk bGJyZHJiXGJyZHJzXGJy MVB5WXNdIpDpkwViOIvo bGJyZHJsXGJyZHJzXGJy AAI2GEDqTuFqmiNsZWov bGJyZHJyXGJyZHJzXGJy DLE2OCRlAiJvbpNvFPkn bHBhZHQxMFxjbHBhZGZ0 M0lwwCHiQGLoIYtqaKRd AONjU4vlwGThUKinLELf cGFkZmwzXGNscGFkYjBc D0xmLRKfBpPkA4TgtTr5 YxExHEQodaFsaN79Baen n7DxHMWhWVD2DQxpDYgh bFxwbGFpblxmMFxmczI0 XHBsYWluXGYxXGZzMjBc bGFuZzEwMzNcaGljaFxm IGppYeZsVYUmSPnaX1sz LbBmC8HiBSZdVsKtYF4j KxApBWA3DMA7YKL5VAPT ANMjZOFWK4RKEmglDKHX R3MwvGcmhU7qOhTgKzZe RHgwZT5fUPBeD6sxrAUx NEOdEMVsB6omCwCvkJ2s aFxmMVxjZjJcZnMyMFxs dHJjaFxjZWxsXHBhcmRc dE42Rrqci8CmOTCpQUR7 MFxzMFxxbFxwbGFpblxm AWihsxE1SXKqVYzaCUIs XGZzMjBcbGFuZzEwMzNc aGljaFxmMVxkYmNoXGYx XQepM3kfWoGjW3YfGALe CpVzZT1aOd6nHAMrWIWw YWluXGYxXGZzMjBcbGFu ZzEwMzNcaGljaFxmMVxk EuRuTUUiTMujI5uvCaGv P5NmDSPpGgOezOZaU1il O5YjeTieOPAoJUvyjNMb YYYzjZFfBER8gWOekoBq jIhgeQbipD5wUaEdKlSz NFxwbGFpblxmMVxmczIw YRyrwnmjLRClGDxkU0uq UzOhWBWqsAgcADmqn5Ln XGYxXGNmMlxmczIwIDUv NP2mRPYbOKQkHDdsEWCu XGZzMjBcbGFuZzEwMzNc aGljaFxmMVxkYmNoXGYx UOgkA7svWhEeJ5YeJCRs WsOaeTUqM2baV8LcgYkf uhZpeMfyl2alfYJiXPmq q3ZeygYpyBfkJEKyDZMo XHBsYWluXGYwXGZzMjRc xEethF4cTqPzEdCwPIoq MQ4qUADuR4aldLFmWGYq EKXlX2piPdCqeX1ezOdw MVxmczIwXHBhcn0= Diagnosis (test code = [id number] 34) IAEbo4lky1DuhIAreJOe LIhpyBEsnaIajv71qNZ0 nT96IJ5gUEFjLjS1GTLo diC7Goq4EDXeFVKveLRm P969c3xxs6myjhQccIJ0 DTOzNFRdE7CuRT8mPUWk lVMsN77qlFGwOCK5KIJt PMBhsSMeQTLsROE4ZUOl yLOlI5uxZSDlEQ4zybet CEgmUWfdYYJvwFJ8BAWj iNOyJ8TkZJBjCPjkMITs fmm8DtYhQi5rvWXxiHai MFxwYXJkXHBsYWluXGZz ZfQdQ0RcZF73kVFeCEPa EKGsGj8gHvE6CEarCCZH AllrTJYUCA4ZN8AvLKBo IBTVNKTpe9coEKV0AUNh l29mJS5xYf4nCVPgITgi cGFyXGNmMFxwYXJcbGk3 MjBcbGluNzIwIEEuIFJp G4d3XYUzGNMokQH3pWLb beXryz9xeaWlpB9tr7qx QWVnQGJ4QXlvhFmxGIiJ IGZvciBFUiwgUFIsIEhl qlPaLOGyFRXcrC26CiPd urKXGRu1TRZjjylsSOYq wHxeEWUnAGpaybO5XTEp JQ2GZQYDYsBwAZBPNDOG GISRHjAQXd1YZFicMb3q A8GUN0lXODXAZYAGIibi FXSkrASnVM0ICKLIEigS HI8hV8DWJDEnKwAgLjOt VTLgPfPtDB7ywVZfGJPc dxQExTBpfDM7MVDrOUwN OlxwYXJcdGFiIEVSIFBP M3nTNVASKWwmAJAdFTPu JhzzkQUeJAmwRiC5OBca jH4cICXjEXCAGW0NC2CB ATLQKPr5NKCoRZMrccZV TYIwVuZNOO1FD5MLENKZ KDpsQ89kJZHeAnamzIMt PMhoWFX1PZ8FUSHRIPLP TFkgRUxFVkFURUQgKDI1 BNadaLNfYYapXLH9TOxp pW6aMSPvBAPeajkhmYXk NjBcZmktNzIwXGxpbjIx NjBccGFyXHBhcmRccGFy fQ== [employer](s) (test l4uxwRRuOCPieWS8CaBd code = 9841) BIYyj7ejd3HrxQLpbDCd YNesyYNejiPutv41cRJ5 dK98GO7tGSVlJkO9RNRi npX2Bbt0JVFiJKLrcXSt Z421a9xyz4sjpwLxwSW4 qLslPHTdvhjkNcW2ADvl CMMevpgdLPt0WLfaRAYk rJJ1DTWfeQDvO2EmXMRk XF2hayo8FTF5DIivESUg ThU6LCAxeBAiAPNrmEuc [id number] krSioBbfyX5uRyHvMVYO MSwgQTRccGFyfQ== Disclaimer (test code = [id number] [id number]) RPUkHSAqk3vnCIBzmODd ZzEwMzNcZnRuYmpcdWMx BBGuPnCho3cah054sOKv c4tyOISrXdS2wPJjIKLa oXJaK072RTVkSLixi4ee a7BzQSNxgGOxp7O3LKIE fxzhcBx7jEvmD92yk6G5 UerwV4iyVZCpTQRqL3Lx NN4pSDIwBix4ZGG0VAN5 EOLnGPLhD0CzAC6lCUBr cUYlCGm7v8bfjKqtDEKu YOR0z8wmNJcrgfZbNT7k yh7kuVc6n6hlqgXqOEAx ARIbyWYTBQZgE7OxgJrt Vr1jnGf1uFbaKurcVFI4 Vng5ZO4kua69gtq6zFxt ZFTdiyoqJxU9RQbnMRIi goesZHt1WDuvSVQwaNM1 PSTebVXzL6NcORGpUM2t gwz6JIR0AQdvTEBnUjV3 NDBcaGVhZGVyeTcyMFxm z895ADF5YoNiFZ3mB3Kt o9K4uO0dhAHpTEAcnZQp UeUjHJJjld4unRHaLMpf c2WzSVI1igX7eFPleIEy WSAcQI77Qybdy1EySemp ACR5FBSbdwFxb7Frv3ey LoMjxkDhH1dcG2QrRGWn ZIBcQLSpEnReotJig9Ox m6XvuBTovMe2w6hwNZIc WQMeuYdld6mtMWS8DKUx C6Y5fGRmm5uhMVfkMIPe yEU1heO9QLXupURxG0Sp aE4eCLXxJD0ujnj0c0mf GNK8DWhlKPFmWaF0wtT3 NDBcaGVhZGVyeTcyMFxm a004ONY8OfDrJZKru3Af Z0ZweRovT86asZwaK58p EPTdkXvtfX2klYmitV0r ZjBcZnMyNFxxbFxwbGFp hhezFWkereU7AWwshqsd XBQiBPwkK5baIpEwQPCk bCnxVRjsk3RqKBIbNTKr IocmexD9IDBBa72yEUPn j8BdIGEzlM8rfOVhBQqp xqPrjAX2DQummwRjVsWb svTiLRDiwH3qMDVgUG4m RMFtokXily4sffKsWFVc DQIiE7NmnqyrbAwsqgPt POAwbz4pweCaATU0VALS KA4AVBCpZXRoe73dLCSo aBloeM7djWHumnKnCGIh z7JszT6bvNGTXFAnF4dp UA4nMOuih0QnoUPmpGSf cIA7AUZly6ZdZmIaizIh iZSpdOLoJ0TcfRovU9bg XLFiDJCabrCieGFmu0Rk HHVpuXS1gNFmIE2UExUH c22jFITbDXBGgoAzWKNq kGsgnDU2jkX1qQ4yIrOD ZiBhcHBsaWNhYmxlLCBj h382hs0efeP8OAWyQBLu mfeem5ZvWKFdTIKymZ39 JHVnKRNvyz6avktwaOZg egKlS4Igiwo3cH9sZELe YWluXGYxXGZzMjJcbGFu ZzEwMzNcaGljaFxmMVxk KnCzXUMtCOqwF3vnBqFu ZnMyMlxwYXJ9 [facility] [place] 2019-03-18 21:08:21 Test Item Value Reference Range Interpretation Comments Sodium Level (test code = Sodium 140.0 mmol/L 135.0-145.0 Level) Potassium Level (test code = 4.1 mmol/L 3.5-5.1 Potassium Level) Chloride Level (test code = 103 mmol/L 98-105 Chloride Level) CO2 (test code = CO2) 28 mmol/L 22-29 Anion Gap (test code = Anion 9 mmol/L 7-16 Gap) BUN (test code = BUN) 13.70 mg/dL 8.00-23.00 Creatinine Level (test code = 1.00 mg/dL 0.50-0.90 H Creatinine Level) BUN/Creat Ratio (test code = 14 N BUN/Creat Ratio) Glucose Level (test code = 94 mg/dL 70-115 Glucose Level) Calcium Level (test code = 9.2 mg/dL 8.3-10.5 Calcium Level) Alk Phos (test code = Alk Phos) 59 U/L 35-104 Bilirubin Total (test code = 0.4 mg/dL 0.1-0.9 Bilirubin Total) Albumin Level (test code = 4.2 g/dL 3.5-5.2 Albumin Level) Protein Total (test code = 7.2 g/dL 6.4-8.3 Protein Total) ALT (test code = ALT) 12 U/L 1-33 AST (test code = AST) 14 U/L 1-32 Globulin (test code = Globulin) 3.0 g/dL 2.9-3.1 A/G Ratio (test code = A/G 1.4 ratio N Ratio) Comprehensive Metabolic [id number] 21:08:21 Test Item Value Reference Range Interpretation [...] the National Kidney Foundation, http://nkdep.ni h.gov Lipid [id number] 21:08:21 Test Item Value Reference Range Interpretation Comments Cholesterol Total 172 mg/dL 0-200 RISK OF HE ART (test code = DISEASEPublishe d by Cholesterol Total) [place] [employer] Kerry lyte Optimal Borderl ine Increased RiskC HOL <200 200-239 >240TRI G <150 150-199 >200HDL Male >60 <40HDL Fema le >60 <50LDL <100 130 -159 >160LDL Near op timal is 100-129 Triglycerides (test 93 mg/dL 9-200 [...] LDL/HDL Ratio=L DL Calc/HDL Chol Comprehensive Metabolic [id number] 21:08:21 Test Item Value Reference Range Interpretation [...] the National Kidney Foundation, http://nkdep.ni h.gov Automated [id number] 21:05:07 Test Item Value Reference Range Interpretation Comments Neutro Auto (test code = Neutro 55.7 % 36.0-70.0 Auto) Lymph Auto (test code = Lymph Auto) 33.7 % 12.0-44.0 [place] Auto (test code = [place] Auto) 7.2 % 0.0-11.0 Eos, Auto (test code = Eos, Auto) 2.6 % 0.0-7.0 Basophil Auto (test code = Basophil 0.6 % 0.0-2.0 Auto) Neutro Absolute (test code = Neutro 2.8 x10 1.6-7.4 Absolute) Lymph Absolute (test code = Lymph 1.69 x10 .50-4.60 Absolute) [facility] Absolute (test code = [place] .36 x10 .00-1.20 Absolute) Eos Absolute (test code = Eos 0.13 x10 0.00-0.74 Absolute) Baso Absolute (test code = Baso 0.03 x10 0.00-0.21 Absolute) IG [id number] 21:05:07 Test Item Value Reference Range Interpretation Comments IG (test code = IG) 0.2 % 0.0-5.0 IG Abs (test code = IG Abs) 0 x10 N Complete Blood Count with [id number] 21:05:06 Test Item Value Reference Range Interpretation [...]
--- NOTE | 2022-03-18 11:37 | EDPHYS ---
Physician Documentation [facility] Name: Kate Brice Age: 66 yrs Sex: Female : 1955 Arrival Date: 03/18/2022 Time: 11:23 Bed IW3 Private MD: ED Physician Jairo Claros HPI: 03/18 11:51 This 66 yrs old Black Female presents to ER via Ambulatory with complaints of Hand rn problem. 11:51 The patient or guardian reports pain, "foul smell". The complaints affect the. Onset: rn The symptoms/episode began/occurred yesterday. Modifying factors: The symptoms are alleviated by nothing, the symptoms are aggravated by nothing. Severity of symptoms: At their worst the symptoms were mild, in the emergency department the symptoms are unchanged. The patient has not experienced similar symptoms in the past. The patient has not recently seen a physician. Pt reports noticed "foul smell" coming from under nail of right 4th finger. No trauma. Is undergoing chemotherapy. No fever. . Historical: - Allergies: 11:27 NKDA; tw2 - Home Meds: 11:27 amlodipine 5 mg tab 1 tab once daily [Active]; aspirin 81 mg Oral TbEC 1 tab once daily tw2 [Active]; Fish Oil Oral [Active]; hydrochlorothiazide 25 mg Oral tab 1 tab once daily [Active]; losartan Oral [Active]; vit D3-folic acid-vit B2-B6-B12 Oral [Active]; - PMHx: 11:27 Arthritis; breast cancer; Hypertension; tw2 - PSHx: 11:27 hip replacement; hysterectomy; knee replacement; tw2 - Immunization history:: Client reports receiving the 2nd dose of the Covid vaccine. - Social history:: Smoking status: Patient denies any tobacco usage or history of. - Family history:: not pertinent. - Hospitalizations: : No recent hospitalization is reported. ROS: 11:51 Constitutional: Negative for fever, chills, and weight loss, Eyes: Negative for injury, rn pain, redness, and discharge, Cardiovascular: Negative for chest pain, palpitations, and edema, Respiratory: Negative for shortness of breath, cough, wheezing, and pleuritic chest pain, Abdomen/GI: Negative for abdominal pain, nausea, vomiting, diarrhea, and constipation, Back: Negative for injury and pain, MS/Extremity: Negative for injury and deformity, + foul smell from right 4th fingernail Skin: Negative for injury, rash, and discoloration, Neuro: Negative for headache, weakness, numbness, tingling, and seizure. Exam: 11:51 Constitutional: This is a well developed, well nourished patient who is awake, alert, rn and in no acute distress. Head/Face: Normocephalic, atraumatic. Eyes: Periorbital areas with no swelling, redness, or edema. Cardiovascular: Regular rate and rhythm. No pulse deficits. Respiratory: No increased work of breathing, no retractions or nasal flaring. Skin: Warm, dry with normal turgor. Normal color with no rashes, no lesions, and no evidence of cellulitis. MS/ Extremity: Pulses equal, no cyanosis. Neurovascular intact. Full, normal range of motion. Equal circumference. right 4th fingernail with mild tenderness, and small amount of purulence expressed from under nail, with already an opening present, no fluctuance. Vital Signs: 11:23 BP 123 / 76; Pulse 74; Resp 17; Temp 97.9(TE); Pulse Ox 100% on R/A; Weight 96.62 kg tw2 (R); Height 5 ft. 7 in. (170.18 cm); Pain 710; 11:23 Body Mass Index 33.36 (96.62 kg, 170.18 cm) tw2 11:23 right hand pain tw2 MDM: 11:28 Patient medically screened. rn 11:51 Differential diagnosis: paronychia, finger infection. Data reviewed: vital signs, rn nurses notes, and as a result, I will discharge patient. Counseling: I had a detailed discussion with the patient and/or guardian regarding: the historical points, exam findings, and any diagnostic results supporting the discharge/admit diagnosis, the need for outpatient follow up, to return to the emergency department if symptoms worsen or persist or if there are any questions or concerns that arise at home. Special discussion: I discussed with the patient/guardian in detail that at this point there is no indication for admission to the hospital. It is understood, however, that if the symptoms persist or worsen the patient needs to return immediately for re-evaluation. Based on the history and exam findings, there is no indication for further emergent testing or inpatient evaluation. I discussed with the patient/guardian the need to see the primary care provider for further evaluation of the symptoms. ED course: Has appt with pcp tomorrow. Will dc home with abx for finger infection, already draining and no focal fluctuance for incision. . Administered Medications: No medications were administered Disposition Summary: 03/18/22 11:36 Discharge Ordered Location: Home rn Problem: new rn Symptoms: have improved rn Condition: Stable rn Diagnosis - Paronychia rn Followup: rn - With: Private Physician - When: Tomorrow - Reason: Recheck today's complaints, Re-evaluation by your physician Discharge Instructions: - Discharge Summary Sheet rn - Florencia rn Forms: - Medication Reconciliation Form rn - Thank You Letter rn - Antibiotic education intern - Prescription Opioid Use rn Prescriptions: - Clindamycin HCl 300 mg Oral Capsule - take 1 capsule by ORAL route every 6 hours for 10 days; 40 capsule; Refills: 0, rn Product Selection Permitted Signatures: Jairo Claros MD MD rn Wise, Tara, RN RN tw2
--- NOTE | 2022-03-18 11:37 | ER ---
Nurse's Notes [facility] Name: Kate Brice Age: 66 yrs Sex: Female : 1955 Arrival Date: 03/18/2022 Time: 11:23 Bed IW3 Private MD: Diagnosis: Paronychia Presentation: 03/18 11:23 Chief complaint: Patient states: i got this thing that come up on my RIGHT hand. it has tw2 been about a month. and i got a foul odor underneath my ring finger nail on RIGHT hand. I am going through chemo as well. I was getting a little dizzy and short winded when i bend over started yesterday. sergio lightheaded. i want to make sure my heart is alright. Coronavirus screen: At this time, the client does not indicate any symptoms associated with coronavirus-19. Ebola Screen: Patient denies travel to an Ebola-affected area in the 21 days before illness onset. Initial Sepsis Screen: Does the patient meet any 2 criteria? No. Patient's initial sepsis screen is negative. Does the patient have a suspected source of infection? No. Patient's initial sepsis screen is negative. Risk Assessment: Do you want to hurt yourself or someone else? Patient reports no desire to harm self or others. Onset of symptoms was March 18, 2022. 11:23 Method Of Arrival: Ambulatory tw2 11:23 Acuity: RACQUEL 3 tw2 11:[address] Claros in triage room at this time. tw2 Triage Assessment: 11:28 General: Appears in no apparent distress. obese, well groomed, Behavior is calm, tw2 cooperative, appropriate for age. Pain: Complains of pain in heel of right hand, palm of right hand and Right first web space. Historical: - Allergies: 11: NKDA; tw2 - Home Meds: : amlodipine 5 mg tab 1 tab once daily [Active]; aspirin 81 mg Oral TbEC 1 tab once daily tw2 [Active]; Fish Oil Oral [Active]; hydrochlorothiazide 25 mg Oral tab 1 tab once daily [Active]; losartan Oral [Active]; vit D3-folic acid-vit B2-B6-B12 Oral [Active]; - PMHx: 11: Arthritis; breast cancer; Hypertension; tw2 - PSHx: 11:27 hip replacement; hysterectomy; knee replacement; tw2 - Immunization history:: Client reports receiving the 2nd dose of the Covid vaccine. - Social history:: Smoking status: Patient denies any tobacco usage or history of. - Family history:: not pertinent. - Hospitalizations: : No recent hospitalization is reported. Screenin:30 Abuse screen: Denies threats or abuse. Nutritional screening: No deficits noted. tw2 Tuberculosis screening: No symptoms or risk factors identified. Fall Risk None identified. Assessment: 11:32 Reassessment: pt reports last chemo on 13. and when i take the chemo i get nauseous. tw2 11:40 Reassessment: Patient appears in no apparent distress at this time. No changes from tw2 previously documented assessment. Patient and/or family updated on plan of care and expected duration. Pain level reassessed. Patient is alert, oriented x 3, equal unlabored respirations, skin warm/dry/pink. Vital Signs: 11:23 BP 123 / 76; Pulse 74; Resp 17; Temp 97.9(TE); Pulse Ox 100% on R/A; Weight 96.62 kg tw2 (R); Height 5 ft. 7 in. (170.18 cm); Pain 7/10; 11:23 Body Mass Index 33.36 (96.62 kg, 170.18 cm) tw2 11:23 right hand pain tw2 ED Course: 11:23 Patient arrived in ED. mr 11:23 Arm band placed on. tw2 11:27 Triage completed. tw2 11:28 Jairo Claros MD is Attending Physician. rn 11:40 Eileen Hubbard RN is Primary Nurse. tw2 11:40 Patient has correct armband on for positive identification. tw2 11:40 No provider procedures requiring assistance completed. Patient did not have IV access tw2 during this emergency room visit. Administered Medications: No medications were administered Medication: :30 VIS not applicable for this client. tw2 Outcome: 11:36 Discharge ordered by . rn 11:40 Discharged to home ambulatory. tw2 11:40 Condition: stable 11:40 Discharge instructions given to patient, family, Instructed on discharge instructions, follow up and referral plans. medication usage, Demonstrated understanding of instructions, follow-up care, medications, Prescriptions given X 1. 11:40 Patient left the ED. tw2 Signatures: Erika March, MD OBED Gill rn Stevie, ENRIKE Arellano RN tw2 Corrections: (The following items were deleted from the chart) 11:29 11:23 Chief complaint: Patient states: i got this thing that come up on my RIGHT hand. tw2 it has been about a month. and i got a foul odor underneath my middle finger nail on RIGHT hand. i was getting a little dizzy and short winded when i bend over started yesterday. sergio lightheaded. i want to make sure my heart is alright tw2 11:31 11:23 Chief complaint: Patient states: i got this thing that come up on my RIGHT hand. tw2 it has been about a month. and i got a foul odor underneath my middle finger nail on RIGHT hand. I am going through chemo as well. I was getting a little dizzy and short winded when i bend over started yesterday. sergio lightheaded. i want to make sure my heart is alright tw2 11:33 11:23 Chief complaint: Patient states: i got this thing that come up on my RIGHT hand. tw2 it has been about a month. and i got a foul odor underneath my ring finger nail on RIGHT hand. I am going through chemo as well. I was getting a little dizzy and short winded when i bend over started yesterday. sergio lightheaded. i want to make sure my heart is alright tw2 11:34 11:32 Reassessment: pt reports last chemo on . tw2 tw2
[2022-03-19 20:47] VITALS: BP 123/76; TEMP 97.9; O2SAT 100
== END 2022-03-18 11:40 | disposition home or self-care (01) ==
LOC: ER 11:18
DX: L03.011 Cellulitis of right finger (principal)
CPT/HCPCS: 99282

== ENCOUNTER 2022-12-14 18:15 | Emergency (ER) | payer OTHER ==
--- OUTSIDE RECORDS SUMMARY | 2022-12-14 18:54 | XMS REPORT | Clinical Summary ---
:1955 Author Organization [facility] MD Srinivasan [facility] Address [address] [place] [address] Care Team Providers Name Role Phone Kasi Triplett MD Unavailable Larissa Fermin MD Unavailable [phone] Madeleine Plaza MD Primary Care Provider [phone] Allergies Active Allergy Reactions Severity Noted Date [...] Date Status aspirin 81 mg chewable Chew 1 tablet 0 Active tablet (81 mg) daily. omega-3 fatty acids/fish Take 1 capsule 0 Active oil (fish oil-omega-3 (1,000 mg) by fatty acids) 300-1,000 mg mouth. capsule cholecalciferol, vitamin Take 1 capsule 0 Active D3, 100 mcg (4,000 unit) by mouth daily. cap losartan-hydrochlorothiaz Take 1 tablet 0 Active jony (HYZAAR) 100-25 mg by mouth daily. per tablet albuterol (VENTOLIN INHALE 1 PUFF 0 09/19/2021 Active HFA,PROAIR HFA) 90 EVERY 6-8 HOURS mcg/puff inhaler NEEDED atorvastatin (LIPITOR) 20 Take 1 tablet 0 03/01/2021 Active mg tablet (20 mg) by mouth at bedtime. nitroglycerin (NITROSTAT) Place 0.4 mg 0 04/14/2021 Active 0.4 mg SL tablet under the tongue. cyanocobalamin, vitamin Take by mouth. 0 Active B-12, (VITAMIN B-12 ORAL) prochlorperazine Take 1 tablet 30 tablet 4 11/13/2021 Active (Compazine) 10 mg (10 mg) by tabletIndications: mouth every 6 Infiltrating duct (six) hours as carcinoma of right female needed for breast nausea or vomiting. Additional Information Patient not taking. Reason: No longer taking, Informant: Self, Reported on 06/20/2022 triamcinolone (KENALOG) 0.1% Apply topically to 80 g 8 Active creamIndications: Infiltrating affected area(s) twice duct carcinoma of right female daily. breast Additional Information Patient not taking. Reason: No longer taking, Reported on 07/23/2022 hydroxyzine HCl (ATARAX) 25 mg Take 1 tablet (25 mg) 90 tablet 6 12/05/2021 Active tabletIndications: Infiltrating by mouth every 8 duct carcinoma of right female (eight) hours as breast needed for itching. Additional Information Patient not taking. Reason: No longer taking, Informant: Self, Reported on 06/20/2022 ondansetron (ZOFRAN) 8 mg Take 1 tablet (8 mg) by 30 tablet 2 02/11/2022 Active tabletIndications: mouth every 12 (twelve) Infiltrating duct carcinoma of hours as needed for right female breast nausea or vomiting. Take scheduled for three days after chemotherapy then, PRN. Additional Information Patient not taking. Reason: No longer taking, Informant: Self, Reported on 06/20/2022 prochlorperazine (COMPAZINE) Take 1 tablet (10 mg) by 30 tablet 4 02/11/2022 Active 10 mg tabletIndications: mouth every 6 (six) hours Infiltrating duct carcinoma as needed for nausea or of right female breast vomiting (breakthrough). Additional Information Patient not taking. Reason: No longer taking, Informant: Self, Reported on 06/20/2022 ondansetron (ZOFRAN) 8 mg Take 1 tablet (8 mg) 60 tablet 5 Active tabletIndications: Infiltrating by mouth every 8 ductal carcinoma of central (eight) hours as portion of right female breast needed for nausea. Additional Information Patient not taking. Reason: No longer taking, Informant: Self, Reported on 06/20/2022 phenylephrine (SUDAFED PE) Take 1 tablet (10 mg) by 0 Active 10 MG tab mouth every 4 (four) hours as needed for congestion. acetaminophen (TylenoL) 325 Take 2 tablets (650 mg) 20 tablet 0 05/24/2022 Active mg tabletIndications: by mouth every 6 (six) Neoplasm of breast regional hours as needed for mild lymph node staging category pain or moderate pain. N1: 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, II axillary lymph node(s) traMADol (Ultram) 50 mg Take 1 tablet (50 mg) by 30 tablet 0 1 07/25/2021 Active tabletIndications: Neoplasm mouth every 6 (six) hours of breast regional lymph as needed for severe node staging category N1: pain. 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, II axillary lymph node(s) Additional Information Patient not taking. Reason: No longer taking, Informant: Self, Reported on 06/20/2022 gabapentin (NEURONTIN) Take 1 capsule 60 capsule 4 06/20/2022 Active 300 mg (300 mg) by capsuleIndications: mouth twice Infiltrating ductal daily. carcinoma of central portion of right female breast letrozole (Femara) 2.5 mg Take 1 tablet 90 tablet 3 07/23/2022 Active tabletIndications: (2.5 mg) by Infiltrating ductal mouth daily. carcinoma of central portion of right female breast fluticasone propionate Inhale 1 spray 0 09/12/2022 Active (FLONASE) 50 mcg/spray (50 mcg) into nasal spray each nostril daily. abemaciclib (Verzenio) Take 1 tablet 56 tablet 3 10/23/2022 Active 100 mg tabletIndications: (100 mg) by Infiltrating ductal mouth twice carcinoma of central daily. portion of right female breast abemaciclib (Verzenio) Take 1 tablet 56 tablet 4 10/24/2022 Active 100 mg tabletIndications: (100 mg) by Infiltrating ductal mouth twice carcinoma of central daily. portion of right female breast acetaminophen (TYLENOL) Take by mouth 0 Discontinued 500 mg tablet as needed. (Stop Taking at Discharge) traMADol (Ultram) 50 mg Take 1 tablet 30 tablet 2 11/13/2021 1 07/26 Discontinued tabletIndications: (50 mg) by (Stop Taking at Infiltrating duct mouth every 6 Discharge) carcinoma of right female (six) hours as breast needed for moderate pain (headache). lidocaine-prilocaine Apply 30 g 0 11/14/202106/01 Discontinued (EMLA) 2.5-2.5% topically ( Therapy creamIndications: affected co mpleted) Infiltrating duct area(s) as carcinoma of right female needed for breast mild pain. traMADol (Ultram) 50 mg Take 1 tablet 30 tablet 2 02/11/202207/23 Discontinued tabletIndications: (50 mg) by Infiltrating duct mouth every 6 carcinoma of right female (six) hours as breast needed for moderate pain (headache). cefdinir (OMNICEF) 300 mg Take 1 capsule 0 05/23 Discontinued (Not capsule by mouth twice Appli cable) daily. gabapentin (NEURONTIN) Take 1 capsule 30 capsule 3 03/27/202206/20 Discontinued 300 mg (300 mg) (Reorder ) capsuleIndications: mouth at Infiltrating ductal bedtime. carcinoma of central portion of right female breast nystatin (MYCOSTATIN) SWISH, HOLD, 0 04/13/202204/26 0 Discontinued 100,000 units/mL THEN SWALLOW (Therapy suspension ML 4 TIMES A comple steve) DAY FOR 10 DAYS ibuprofen (ADVIL,MOTRIN) Take 1 tablet 20 tablet 0 05/24/202207/23 Discontinued (Not 800 mg tabletIndications: (800 mg) 023 Applicable) Neoplasm of breast mouth every 8 regional lymph node (eight) hours staging category N1: as needed for Metastasis to movable moderate pain ipsilateral level I, II or mild pain. axillary lymph node(s) abemaciclib (Verzenio) Take 1 tablet 56 tablet 5 09/17/2022 Discontinued 150 mg tabletIndications: by mouth twice Infiltrating ductal daily. 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 10/25/2021 Cancer Staging: Clinical stage from 2021: Stage IIB (cT2, cN1(f), cM0, G2, ER+, ME-, HER2-) - Unsigned Pathologic stage from 05/24/2022: No Stag e Recommended (ypT2, pN1a, cM0, GX, ER+, ME-, HER2-) - Unsigned Encounters Date Type Specialty Care Team Description 11/21/2022 Telephone Breast Medical Jackie Deal community outreach manager 11/20/2022 Follow-Up Breast Medical Danisha Arias Infiltratin g ductal Oncology carcinoma of central Trevino, Risa B, portion of rig [facility] female breast (Primary Dx) 11/20/2022 Travel 10/24/2022 Orders Only Breast Medical Risa Trevino, Infiltrating ductal Oncology ZURDO carcinoma of ce ntral portion of [facility] t female breast (Primary Dx) 10/22/2022 Follow-Up Breast Medical Danisha Arias Infiltratin roni ductal Oncology carcinoma of ce ntral portion of rig t female breast 10/22/2022 Travel 10/01/2022 Telephone Breast Medical Jackie Deal community outreach manager 09/17/2022 Follow-Up Breast Medical Danisha Arias Infiltratin g ductal Oncology carcinoma of ce ntral portion of [facility] t female breast 09/17/2022 Travel 08/23/2022 Nutrition Nutrition [facility], MD Vaishali Nair Alyssa C, MIGUEL 08/20/2022 Orders Only Breast Medical Risa Trevino, Oncology PA 08/16/2022 Telephone Breast Medical Jackie Deal, community outreach manager 08/09/2022 Orders Only Breast Medical TrevinoRisa peter, Oncology PA 08/02/2022 Orders Only Breast Medical TrevinoRisa peter, Oncology PA 07/23/2022 Follow-Up Breast Medical Danisha Arias Infiltratin g ductal Oncology carcinoma of ce ntral portion of rig t female breast 07/23/2022 Travel 06/29/2022 Telephone Breast Medical Jackie Deal, community outreach manager 06/20/2022 Clinical Support Surgical Oncology Alan-Navarrete Inf iltrating ductal , Chelsie, PA carcinoma of central Aleksey, portion of rig t Skye, RN female breast 06/20/2022 Orders Only Breast Medical Risa Trevino, Infiltrating ductal Oncology PA carcinoma of ce ntral portion of righ t female breast 06/20/2022 Telephone Breast Medical Jackie Deal, community outreach manager 06/20/2022 Travel 06/19/2022 Orders Only Breast Surgical Alan-Navarrete Infiltrat ing ductal Oncology , ZURDO Holguin carcinoma of ce ntral portion of rig t female breast (Primary Dx) 06/14/2022 Clinical Support Surgical Oncology Alan-Navarrete Inf iltrating ductal , ZURDO Holguin carcinoma of central Jeremias, Charmaine portion of rig F, RN female breast 06/14/2022 Travel 06/13/2022 Orders Only Breast Surgical Alan-Navarrete Infiltrat ing ductal Oncology , ZURDO Holguin carcinoma of ce ntral portion of rig t female breast (Primary Dx) 06/08/2022 Office Visit Breast Surgical Madeleine Plaza Infiltrati ng ductal Oncology Remedios Moore, carcinoma of c entral MD portion of rig t female breast 06/08/2022 Orders Only Breast Surgical Alan-Navarrete Oncology Chelsie PA 06/08/2022 Travel 06/05/2022 Telemedicine Radiation Oncology Dianna Oconnor, Infiltr ating ductal carcinoma of central portion of right female breast (Primary Dx); Neoplasm of maia ast regional lymph node staging category N1: 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, II axillary lymph node(s) 06/05/2022 Telephone Breast Medical Danisha Arias, Oncology 06/01/2022 Office Visit Plastic Surgery Yoav Valdez Infiltrating ductal MD Victor M carcinoma of ce ntral portion of rig t female breast (Primary Dx) 06/01/2022 Travel 05/28/2022 Orders Only Gastrointestinal Redd Gross Surgery Mike Dyson MD 05/28/2022 Telephone Gastrointestinal Redd Gross MD 05/28/2022 Nurse Parul Alegre RN 05/28/2022 Telephone Mikal, Discharge Call (/) Pietro Downing RN 05/27/2022 Telephone Robe, Discharge Call Harini Hunt RN 05/26/2022 Nurse Triage Tomasz Stockton, ARRESTING GEAR OPERATOR 05/25/2022 Nurse Triage Jackeline Andrew RN 05/24/2022 Anesthesia Event Alba Reyes MD Matute, Gilda, AUTO BUMPER MECHANIC 05/24/2022 Surgery Madeleine Plaza SEED LOC; SEG MENTAL Remedios Moore, MASTECTOMY 05/24/2022 Hospital Encounter Radiology Waqas-Chelsie Navarrete PA 05/24/2022 Hospital Encounter Uro/Ortho/GI Madeleine Plaza Neoplas m of breast regional lymph node staging category N1: 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, II axillary lymph node(s) (Primary Dx); - Remedios Moore, Infiltrating d uct carcinoma of right female breast 05/25/2022 05/24/2022 Orders Only Plastic Surgery Erika Daniels Infiltrating ductal ZURDO Jaramillo carcinoma of ce ntral portion of righ t female breast (Primary Dx) 05/24/2022 Travel 05/23/2022 Anesthesia Event Anesthesiology Kyleigh Arellano, ARRESTING GEAR OPERATOR 05/23/2022 Ancillary Radiology Infiltrating du ctal Procedure carcinoma of ce ntral portion of righ t female breast 05/23/2022 Ancillary Radiology Alan-Navarrete Procedure , ZURDO Holguin 05/23/2022 Ancillary Radiology Infiltrating du ctal Procedure carcinoma of ce ntral portion of righ t female breast 05/23/2022 Ancillary Radiology Alan-Navarrete Procedure , ZURDO Holguin 05/23/2022 Ancillary Radiology Alan-Navarrete Infiltrating ductal Procedure , ZURDO Holguin carcinoma of ce ntral portion of righ t female breast 05/23/2022 Consult Plastic Surgery Yoav Valdez Infiltrating ductal MD Victor M carcinoma of ce ntral portion of righ t female breast 05/23/2022 POEM Appointments Anesthesiology Alan-Landon Infil trating duct , ZURDO Holguin carcinoma of ri ght female breast 05/23/2022 Orders Only Breast Surgical Alan-Landon Oncology Chelsie PA 05/23/2022 Telephone Breast Surgical Charmaine Mcdowell Oncology ENRIKE Hunt 05/23/2022 Travel 05/09/2022 Orders Only Breast Surgical Alan-Landon Oncology Chelsie PA 05/01/2022 Office Visit Breast Surgical Madeleine Plaza Infiltrati ng duct Oncology Remedios Moore, carcinoma of r ight female breast 05/01/2022 Travel 04/27/2022 Ancillary Radiology Alan-Landon Infiltrating duct Procedure , ZURDO Holguin carcinoma of ri ght female breast 04/27/2022 Ancillary Radiology Alan-Landon Infiltrating duct Procedure , ZURDO Holguin carcinoma of ri ght female breast 04/27/2022 Travel 04/19/2022 Orders Only Radiation Oncology Princess Arce Neoplas m of breast PA regional lymph node staging categor y N1: Metastasis to movable ipsilat eral level I, II axi llary lymph node(s) (Primary Dx) 04/19/2022 Orders Only Breast Surgical Alan-Landon Infiltrat ing ductal Oncology Chelsie PA carcinoma of ce ntral portion of righ t female breast (Primary Dx) 04/17/2022 Infusion Infusion Services Risa Trevino, Infiltrat ing ductal PA carcinoma of central [place], portion of righ t ENRIKE Gómez female breast (Primary Dx) 04/17/2022 Office Visit Oncology Danisha Arias, Infiltrating ductal MD carcinoma of central Risa Trevino, portion of rig ht PA female breast (Primary Dx) 04/17/2022 Orders Only Gastrointestinal Antionette Norman MD Medical Oncology 04/17/2022 Travel 04/03/2022 Anesthesia Event Anesthesiology Gladis Whitmore MA 04/02/2022 POEM Appointments Anesthesiology Madeleine Plaza MD 04/02/2022 Consult Internal Medicine [facility] er for other preprocedural examination (Primary Dx); , ZURDO Holguin Infiltrating duct carcinoma of right fem nidia breast; Adam Melendez MD Coronary ath erosclerosis due to calcified coronary lesion; Hypertension; Hyperlipidemia, not otherwise specified; longterm curre nt use of aspirin; Obstructive sle ep apnea syndrome 04/02/2022 Orders Only Internal Medicine Sebas Felipe RN 04/02/2022 Travel 03/27/2022 Infusion Infusion Services Risa Trevino, Infiltrat ing ductal PA carcinoma of central [place], portion of [facility] t Korin Messina RN female breast (Primary Dx) 03/27/2022 Office Visit Breast Medical Danisha Arias, Infiltratin g ductal Oncology carcinoma of ce ntral portion of rig t female breast 03/27/2022 Travel 03/07/2022 Orders Only Breast Surgical Alan-Navarrete Oncology Chelsie PA 03/06/2022 Infusion Infusion Services Danisha Arias, Infiltra ting ductal MD carcinoma of central [place], portion of rig t Korin Messina, RN female breast (Primary Dx) 03/06/2022 Office Visit Breast Medical Danisha Arias, Infiltratin g ductal Oncology carcinoma of central Risa Trevino, portion of rig PA female breast (Primary Dx) 03/06/2022 Orders Only Breast Medical Danisha Arias, Oncology 03/06/2022 Orders Only Breast Medical Risa Trevino, Infiltrating ductal Oncology PA carcinoma of ce ntral portion of rig t female breast (Primary Dx) 03/06/2022 Travel 02/22/2022 Orders Only Radiology Kasia Ivory MD 02/22/2022 Orders Only Breast Surgical Alan-Navarrete Infiltrat ing ductal Oncology , Chelsie, PA carcinoma of ce ntral portion of rig t female breast (Primary Dx) 02/22/2022 Orders Only Breast Surgical Alan-Navarrete Infiltrat ing ductal Oncology , Chelsie, PA carcinoma of ce ntral portion of rig t female breast (Primary Dx) 02/20/2022 Ancillary Radiology Risa Trevino, Infiltrating d uct Procedure PA carcinoma of ri ght female breast 02/20/2022 Ancillary Radiology Risa Trevino, Infiltrating d uct Procedure PA carcinoma of ri ght female breast 02/20/2022 Travel 02/16/2022 Telephone Dermatology Danisha Arias MD 02/15/2022 Orders Only Breast Surgical Alan-Navarrete Oncology , Chelsie, PA 02/14/2022 Consult Radiation Oncology Dianna Ocnonor, Infiltr ating ductal carcinoma of central portion of right female breast (Primary Dx); MD Woody du ct carcinoma of right female breast 02/14/2022 Travel 02/13/2022 Infusion Infusion Services Risa Trevino, Infiltrat ing duct PA carcinoma of right Samanta Rolle female breast Ute RN (Primary Dx) 02/13/2022 Office Visit Breast Medical Danisha Arias, Infiltratin g duct carcinoma of right female breast (Primary Dx); Oncology Infiltrating du ctal carcinoma of central portion of right female breast 02/13/2022 Orders Only Breast Medical Risa Trevino, Oncology PA 02/13/2022 Travel 02/09/2022 Office Visit Breast Surgical Madeleine Plaza Infiltrati ng duct Oncology Remedios Moore, carcinoma of r ight female breast Waqas-Chelsie Navarrete PA 02/09/2022 Ancillary Radiology Infiltrating du ct Procedure carcinoma of ri ght female breast 02/09/2022 Prep for Surgery Breast Surgical Maylin Infil trating duct Oncology Chelsie PA carcinoma of ri ght female breast (Primary Dx) 02/09/2022 Travel 02/06/2022 Infusion Infusion Services Risa Trevino, Infiltrat ing duct PA carcinoma of right Karlie Link female porsha Mejia RN (Primary Dx) 02/06/2022 Travel 01/30/2022 Infusion Infusion Services Risa Trevino, Infiltrat ing duct PA carcinoma of right Becky Macedo RN female porsha t (Primary Dx) 01/30/2022 Travel 01/22/2022 Infusion Infusion Services Gil Edwards, Infiltrati ng duct ARRESTING GEAR OPERATOR carcinoma of right [place], female breast Korin Messina RN (Primary Dx) 01/22/2022 Travel 01/16/2022 Orders Only Breast Medical Risa Trevino, Oncology PA 01/15/2022 Infusion Infusion Services Gil Edwards, Infiltrati ng duct ARRESTING GEAR OPERATOR carcinoma of right Ivis Edwards RN female porsha t (Primary Dx) 01/15/2022 Office Visit Breast Medical [...] (Primary Dx) 01/08/2022 Telephone Breast Medical Danisha Arias Oncology 01/03/2022 Orders Only Breast Medical Risa Trevino, Infiltrating duct Oncology PA carcinoma of ri ght female breast (Primary Dx) 01/02/2022 Infusion Infusion Services Gil Edwards, Infiltrati ng duct ARRESTING GEAR OPERATOR carcinoma of right Adelaide Monsivais female breast W, RN (Primary Dx) 01/02/2022 Travel 12/29/2021 Telephone Oncology Jackie Deal RN 12/26/2021 Infusion Infusion Services Gil Edwards, Infiltrati ng duct ARRESTING GEAR OPERATOR carcinoma of right Adelaide Monsivais female breast W, RN (Primary Dx) 12/26/2021 Office Visit Oncology Gil Edwards, Infiltrating du ct ARRESTING GEAR OPERATOR carcinoma of ri ght female breast (Primary Dx) 12/26/2021 Orders Only Breast Medical Danisha Arias Oncology 12/26/2021 Travel 12/19/2021 Infusion Infusion Services Gil Edwards, Infiltrati ng duct ARRESTING GEAR OPERATOR carcinoma of right Gunjan Bloom female breast S, RN (Primary Dx) 12/19/2021 Travel after 12/14/2021 Surgical History Surgery Date Site/Laterality Comments HYSTERECTOMY TOTAL HIP ARTHROPLASTY Bilateral TOTAL KNEE ARTHROPLASTY Right ME MASTECTOMY PARTIAL 05/24/2022 Breast/Right Procedure: SEED LOC; SEGMENTAL MASTEC JERRY; Surgeon: Madeleine Calvillo MD; L ocation: MAIN OR; Service: MAIA AST ME BX/EXC LYMPH NODE OPEN DEEP 05/24/2022 Axilla/Right P rocedure: TARGETED AXILLARY AXILLARY NODE NODE DISSECTION; Surgeon: Madeleine stokes MD; Location: MAIN O R; Service: BREAST ME AXILLARY LYMPHADENECTOMY 05/24/2022 Axilla/Right Proc edure: AXILLARY COMPLETE LYMPHADENECTOMY; Surgeon: Madeleine stokes MD; Location: MAIN O R; Service: BREAST ME INTRAOP SENTINEL LYMPH NODE 05/24/2022 Breast/Right P rocedure: INTRAOPERATIVE ID W/DYE INJECTION LYMPHATIC MAP PING; Surgeon: Madeleine Plaza MD; Location: [place] IN OR; Service: BREAST ME RMVL BRIANA CTR VAD W/SUBQ 05/24/2022 Chest/Left Proce dure: PORT-A-CATH PORT/SEASONAL PACKAGE HANDLER CTR/PRPH INSJ REMOVAL; Surgeon: Madeleine Plaza MD; Location: MAIN O R; Service: BREAST ME REPAIR COMPLEX TRUNK 05/24/2022 Breast/Right Procedur e: COMPLEX REPAIR OF 1.1-2.5 CM TRUNK; Surgeon: Yoav Valdez MD; Locati on: MAIN OR; Service: PLS - P LASTIC SURGERY Medical History Medical History Date Comments Hypertension Coronary artery disease due to calcified coronary lesion Osteoarthritis Hyperlipidemia Bradycardia Family History Medical History Relation Name Comments No Known Problems Maternal Cousin Cervical cancer Sister Colon cancer Sister Relation Name Status Comments Maternal Cousin Sister Social History Tobacco Use Types Packs/Day Years Used Date Smoking Tobacco: Never Smokeless Tobacco: Never Tobacco Cessation: Counseling Given: Not Answered Alcohol Use Standard Drinks/Week Comments Never 0 (1 standard drink = 0.6 oz pure alcoho l) Sex Assigned at Date Recorded Not on file Job Start Date Occupation Industry Not on file Not on file Not on file COVID-19 Exposure Response Date Recorded In the last 10 days, have you been in contact with No / Unsu re 11/20/2022 10:57 AM CDT someone who was confirmed or suspected [...] Sign Reading Time Taken Comments Blood Pressure 143/83 11/20/2022 11:19 AM CDT Pulse 52 11/20/2022 11:19 AM CDT Temperature 36.5 C (97.7 F) 11/20/2022 11:19 AM CDT Respiratory Rate 16 11/20/2022 11:19 AM CDT Oxygen Saturation 98% 06/01/2022 9:37 AM CARE DIRECTOR RN Inhaled Oxygen Concentration - - Weight 93.8 kg (206 lb 12.7 oz) 11/20/2022 11:19 AM CDT Height 167 cm (5' 5.75") 05/24/2022 10:31 PM CARE DIRECTOR RN Body Mass Index 33.63 05/24/2022 10:31 PM CARE DIRECTOR RN Plan of Treatment Date Type Specialty Care Team Description 12/17/2022 Lab Lab Risa Trevino PA [address] [place], [place] [address] (Wo rk) 12/17/2022 Follow-Up Breast Medical Oncology Danisha Arias MD [address] [place], [place] [address] (Wo rk) 12/31/2022 Telemedicine Integrative Medicine Rj Palm MD [address] [place] [address] Jacek Cruz MD [facility] [place] [address] 01/29/2023 Ancillary Procedure Radiology Chelsie Carlisle PA [address] [place], [place] [address] (Wo rk) 01/29/2023 Follow-Up Breast Surgical Refinetti, Madeleine Oncology Remedios Moore MD [address] [place], [place] [address] (Wo rk) Health Maintenance Due Date Last Done Comments COVID-19 Vaccination (#1) 04/14/1956 Medical Devices Implanted Type Area Concrete Block Plant Supervisor Device Shelf Model / Identifier Expiration Serial / Date Lot Candida Potts Isp 8fr - [id number] Port Left: BARD PERIPHER AL 09/21/2022 [id number] / Implanted: Qty: 1 on 11/14/2021 at [facility] st [id number] / Explanted: 05/24/2022 (Quantity not on file) Wall [id number] Knee Replacement Right: Knee Description: right Procedures Procedure Name Priority Date/Time Associated Comments Diagnosis URINALYSIS MICROSCOPIC Routine 11/20/2022 11:57 R esults for this EXAM AM CDT procedure are i n the results section. URINALYSIS WITH Routine 11/20/2022 11:57 Infiltrating ductal R esults for this MICROSCOPIC IF INDICATED AM CDT carcinoma of pro cedure are in central portion of the resul ts right female breast section. URINE CULTURE Routine 11/20/2022 11:57 Infiltrating ductal Res ults for this AM CDT carcinoma of procedure are i n central portion of the resul ts right female breast section. FRACTIONATED BILIRUBIN Routine 11/20/2022 10:41 Infiltrating d uctal Results for this AM CDT carcinoma of procedure are i n central portion of the resul ts right female breast section. TOTAL PROTEIN Routine 11/20/2022 10:41 Infiltrating ductal Res ults for this AM CDT carcinoma of procedure are i n central portion of the resul ts right female breast section. ASPARTATE Routine 11/20/2022 10:41 Infiltrating ductal Resu lts for this AMINOTRANSFERASE AM CDT carcinoma of procedure a re in central portion of the resul ts right female breast section. ALANINE AMINOTRANSFERASE Routine 11/20/2022 10:41 Infiltrating ductal Results for this AM CDT carcinoma of procedure are i n central portion of the resul ts right female breast section. ALKALINE PHOSPHATASE Routine 11/20/2022 10:41 Infiltrating hoda kulwant Results for this AM CDT carcinoma of procedure are i n central portion of the resul ts right female breast section. ALBUMIN LEVEL Routine 11/20/2022 10:41 Infiltrating ductal Res ults for this AM CDT carcinoma of procedure are i n central portion of the resul ts right female breast section. CALCIUM LEVEL TOTAL Routine 11/20/2022 10:41 Infiltrating duct al Results for this AM CDT carcinoma of procedure are i n central portion of the resul ts right female breast section. .GLOMERULAR FILTRATION Routine 11/20/2022 10:41 Infiltrating d uctal Results for this RATE AM CDT carcinoma of procedure are i n central portion of the resul ts right female breast section. SERUM CREATININE Routine 11/20/2022 10:41 Infiltrating ductal Results for this AM CDT carcinoma of procedure are i n central portion of the resul ts right female breast section. ELECTROLYTE PANEL Routine 11/20/2022 10:41 Infiltrating ductal Results for this AM CDT carcinoma of procedure are i n central portion of the resul ts right female breast section. BLOOD UREA NITROGEN Routine 11/20/2022 10:41 Infiltrating duct al Results for this AM CDT carcinoma of procedure are i n central portion of the resul ts right female breast section. GLUCOSE LEVEL Routine 11/20/2022 10:41 Infiltrating ductal Res ults for this AM CDT carcinoma of procedure are i n central portion of the resul ts right female breast section. MANUAL DIFFERENTIAL Routine 11/20/2022 10:41 Infiltrating duct al Results for this AM CDT carcinoma of procedure are i n central portion of the resul ts right female breast section. Results CBC Routine 11/20/2022 10:41 Infiltrating ductal Resu lts for this AM CDT carcinoma of procedure are i n central portion of the resul ts right female breast section. COMPREHENSIVE METABOLIC Routine 11/20/2022 10:41 Infiltrating ductal PANEL AM CDT carcinoma of central portion of right female breast COMPLETE BLOOD COUNT W/ Routine 11/20/2022 10:41 Infiltrating ductal DIFFERENTIAL AM CDT carcinoma of central portion of right female breast MANUAL DIFFERENTIAL Routine 10/22/2022 9:14 Infiltrating ducta l Results for this AM CDT carcinoma of procedure are i n central portion of the resul ts right female breast section. Results CBC Routine 10/22/2022 9:14 Infiltrating ductal Resul ts for this AM CDT carcinoma of procedure are i n central portion of the resul ts right female breast section. FRACTIONATED BILIRUBIN Routine 10/22/2022 9:14 Infiltrating du ctal Results for this AM CDT carcinoma of procedure are i n central portion of the resul ts right female breast section. TOTAL PROTEIN Routine 10/22/2022 9:14 Infiltrating ductal Resu lts for this AM CDT carcinoma of procedure are i n central portion of the resul ts right female breast section. ASPARTATE Routine 10/22/2022 9:14 Infiltrating ductal Resul ts for this AMINOTRANSFERASE AM CDT carcinoma of procedure a re in central portion of the resul ts right female breast section. ALANINE AMINOTRANSFERASE Routine 10/22/2022 9:14 Infiltrating ductal Results for this AM CDT carcinoma of procedure are i n central portion of the resul ts right female breast section. ALKALINE PHOSPHATASE Routine 10/22/2022 9:14 Infiltrating duct al Results for this AM CDT carcinoma of procedure are i n central portion of the resul ts right female breast section. ALBUMIN LEVEL Routine 10/22/2022 9:14 Infiltrating ductal Resu lts for this AM CDT carcinoma of procedure are i n central portion of the resul ts right female breast section. CALCIUM LEVEL TOTAL Routine 10/22/2022 9:14 Infiltrating ducta l Results for this AM CDT carcinoma of procedure are i n central portion of the resul ts right female breast section. .GLOMERULAR FILTRATION Routine 10/22/2022 9:14 Infiltrating du ctal Results for this RATE AM CDT carcinoma of procedure are i n central portion of the resul ts right female breast section. SERUM CREATININE Routine 10/22/2022 9:14 Infiltrating ductal R esults for this AM CDT carcinoma of procedure are i n central portion of the resul ts right female breast section. ELECTROLYTE PANEL Routine 10/22/2022 9:14 Infiltrating ductal Results for this AM CDT carcinoma of procedure are i n central portion of the resul ts right female breast section. BLOOD UREA NITROGEN Routine 10/22/2022 9:14 Infiltrating ducta l Results for this AM CDT carcinoma of procedure are i n central portion of the resul ts right female breast section. GLUCOSE LEVEL Routine 10/22/2022 9:14 Infiltrating ductal Resu lts for this AM CDT carcinoma of procedure are i n central portion of the resul ts right female breast section. COMPLETE BLOOD COUNT W/ Routine 10/22/2022 9:14 Infiltrating d uctal DIFFERENTIAL AM CDT carcinoma of central portion of right female breast COMPREHENSIVE METABOLIC Routine 10/22/2022 9:14 Infiltrating d uctal PANEL AM CDT carcinoma of central portion of right female breast PATHOLOGY SURGICAL Routine 05/24/2022 5:00 Infiltrating duct R esults for this INTERPRETATION PM CARE DIRECTOR RN carcinoma of right procedu re are in female breast the results section. 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 Needs TT@1200 pt have a rapid covi d test SEED placement and Lympho on 05/23High DosePlastic surgery time 180 mins INTRAOPERATIVE LYMPHATIC 05/24/2022 3:33 PM CARE DIRECTOR RN Infilt rating duct carcinoma MAPPING of right female breast Special Needs TT@1200 pt have a rapid covi d test SEED placement and Lympho on 05/23High DosePlastic surgery time 180 mins AXILLARY LYMPHADENECTOMY 05/24/2022 3:33 PM CARE DIRECTOR RN Infilt rating duct carcinoma of right female breast Special Needs TT@1200 pt have a rapid covi d test SEED placement and Lympho on 05/23High DosePlastic surgery time 180 mins TARGETED AXILLARY NODE 05/24/2022 3:33 PM CARE DIRECTOR RN Infiltra ting duct carcinoma of DISSECTION right female breast Special Needs TT@1200 pt have a rapid covi d test SEED placement and Lympho on 05/23High DosePlastic surgery time 180 mins SEGMENTAL MASTECTOMY - OTHER 05/24/2022 3:33 PM CARE DIRECTOR RN 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 COVID-19 (SARS-COV-2) Now 05/24/2022 11:51 Re sults for this ASYMPTOMATIC-LT AM CARE DIRECTOR RN procedure ar e in the results section. EKG, 12-LEAD (PORTABLE) STAT 05/24/2022 FRACTIONATED BILIRUBIN Routine 05/23/2022 4:[address] Results for this PM CARE DIRECTOR RN carcinoma of right procedure are in female breast the results section. TOTAL PROTEIN Routine 05/23/2022 4:06 Infiltrating duct Result s for this PM CARE DIRECTOR RN carcinoma of right procedure are in female breast the results section. ASPARTATE Routine 05/23/2022 4:06 Infiltrating duct Results for this AMINOTRANSFERASE PM CARE DIRECTOR RN carcinoma of right proce dure are in female breast the results section. ALANINE AMINOTRANSFERASE Routine 05/23/2022 4:06 Infiltrating duct Results for this PM CARE DIRECTOR RN carcinoma of right procedure are in female breast the results section. ALKALINE PHOSPHATASE Routine 05/23/2022 4:06 Infiltrating duct Results for this PM CARE DIRECTOR RN carcinoma of right procedure are in female breast the results section. ALBUMIN LEVEL Routine 05/23/2022 4:06 Infiltrating duct Result s for this PM CARE DIRECTOR RN carcinoma of right procedure are in female breast the results section. CALCIUM LEVEL TOTAL Routine 05/23/2022 4:06 Infiltrating duct Results for this PM CARE DIRECTOR RN carcinoma of right procedure are in female breast the results section. .GLOMERULAR FILTRATION Routine 05/23/2022 4:[address] Results for this RATE PM CARE DIRECTOR RN carcinoma of right procedure are in female breast the results section. SERUM CREATININE Routine 05/23/2022 4:06 Infiltrating duct Res ults for this PM CARE DIRECTOR RN carcinoma of right procedure are in female breast the results section. ELECTROLYTE PANEL Routine 05/23/2022 4:06 Infiltrating duct Re sults for this PM CARE DIRECTOR RN carcinoma of right procedure are in female breast the results section. BLOOD UREA NITROGEN Routine 05/23/2022 4:06 Infiltrating duct Results for this PM CARE DIRECTOR RN carcinoma of right procedure are in female breast the results section. GLUCOSE LEVEL Routine 05/23/2022 4:06 Infiltrating duct Result s for this PM CARE DIRECTOR RN carcinoma of right procedure are in female breast the results section. MANUAL DIFFERENTIAL Routine 05/23/2022 4:06 Infiltrating duct Results for this PM CARE DIRECTOR RN carcinoma of right procedure are in female breast the results section. Results CBC Routine 05/23/2022 4:06 Infiltrating duct Results for this PM CARE DIRECTOR RN carcinoma of right procedure are in female breast the results section. COMPREHENSIVE METABOLIC Routine 05/23/2022 4:06 Infiltrating d uct PANEL PM CARE DIRECTOR RN carcinoma of right female breast COMPLETE BLOOD COUNT W/ Routine 05/23/2022 4:06 Infiltrating d uct DIFFERENTIAL PM CARE DIRECTOR RN carcinoma of right female breast MAMMO POST PROCEDURE Routine 05/23/2022 3:52 Infiltrating duct al Results for this RIGHT PM CARE DIRECTOR RN carcinoma of procedure are i n central portion of the resul ts right female breast section. US GUIDED AXILLARY LN Routine 05/23/2022 3:21 Infiltrating hoda kulwant Results for this NON-WIRE LOCALIZATION PM CARE DIRECTOR RN carcinoma of proced ure are in RIGHT central portion of the resul ts right female breast section. US GUIDED BREAST NON-WIRE Routine 05/23/2022 3:21 Infiltrating ductal Results for this LOCALIZATION RIGHT PM CARE DIRECTOR RN carcinoma of procedure are in central portion of the resul ts right female breast section. NM LYMPHOSCINTIGRAPHY Routine 05/23/2022 12:40 Infiltrating du ctal Results for this BREAST PM CARE DIRECTOR RN carcinoma of procedure are i n central portion of the resul ts right female breast section. MAMMO DIGITAL DIAGNOSTIC Routine 04/27/2022 12:07 Infiltrating duct Results for this RIGHT W JASSON PM CDT carcinoma of right procedure are in female breast the results section. US CHEST Routine 04/27/2022 11:20 Infiltrating duct Result s for this AM CDT carcinoma of right procedure are in female breast the results section. US BREAST COMPLETE RIGHT Routine 04/27/2022 11:20 Infiltrating duct Results for this AM CDT carcinoma of right procedure are in female breast the results section. URINALYSIS WITH STAT 04/17/2022 1:21 Infiltrating ductal Re sults for this MICROSCOPIC IF INDICATED PM CDT carcinoma of pro cedure are in central portion of the resul ts right female breast section. MANUAL DIFFERENTIAL Routine 04/17/2022 11:39 Infiltrating duct al Results for this AM CDT carcinoma of procedure are i n central portion of the resul ts right female breast section. Results CBC Routine 04/17/2022 11:39 Infiltrating ductal Resu lts for this AM CDT carcinoma of procedure are i n central portion of the resul ts right female breast section. COMPLETE BLOOD COUNT W/ Routine 04/17/2022 11:39 Infiltrating ductal DIFFERENTIAL AM CDT carcinoma of central portion of right female breast URINALYSIS WITH Routine 03/27/2022 1:41 Results f or this MICROSCOPIC IF INDICATED PM CDT pro cedure are in the results section. URINALYSIS MICROSCOPIC Routine 03/27/2022 1:41 Infiltrating du ctal Results for this PM CDT carcinoma of procedure are i n central portion of the resul ts right female breast section. URINE CULTURE Routine 03/27/2022 1:41 Infiltrating ductal Resu lts for this PM CDT carcinoma of procedure are i n central portion of the resul ts right female breast section. MANUAL DIFFERENTIAL Routine 03/27/2022 12:27 Infiltrating duct al Results for this PM CDT carcinoma of procedure are i n central portion of the resul ts right female breast section. Results CBC Routine 03/27/2022 12:27 Infiltrating ductal Resu lts for this PM CDT carcinoma of procedure are i n central portion of the resul ts right female breast section. BILIRUBIN TOTAL Routine 03/27/2022 12:27 Infiltrating ductal R esults for this PM CDT carcinoma of procedure are i n central portion of the resul ts right female breast section. ALKALINE PHOSPHATASE Routine 03/27/2022 12:27 Infiltrating hoda kulwant Results for this PM CDT carcinoma of procedure are i n central portion of the resul ts right female breast section. ALANINE AMINOTRANSFERASE Routine 03/27/2022 12:27 Infiltrating ductal Results for this PM CDT carcinoma of procedure are i n central portion of the resul ts right female breast section. ASPARTATE Routine 03/27/2022 12:27 Infiltrating ductal Resu lts for this AMINOTRANSFERASE PM CDT carcinoma of procedure a re in central portion of the resul ts right female breast section. COMPLETE BLOOD COUNT W/ Routine 03/27/2022 12:27 Infiltrating ductal DIFFERENTIAL PM CDT carcinoma of central portion of right female breast MANUAL DIFFERENTIAL Routine 03/06/2022 1:25 Infiltrating ducta l Results for this PM CDT carcinoma of procedure are i n central portion of the resul ts right female breast section. Results CBC Routine 03/06/2022 1:25 Infiltrating ductal Resul ts for this PM CDT carcinoma of procedure are i n central portion of the resul ts right female breast section. COMPLETE BLOOD COUNT W/ [...] in female breast the results section. ALANINE AMINOTRANSFERASE Routine 02/13/2022 1:00 Infiltrating duct Results for [...] breast the results section. US BREAST COMPLETE RIGHT Routine 02/09/2022 9:54 Infiltrating duct Results for [...] in female breast the results section. ALANINE AMINOTRANSFERASE Routine 12/26/2021 10:11 Infiltrating duct Results for [...] PM CDT carcinoma of right female breast after 12/14/2021 Results (ABNORMAL) Urinalysis Microscopic Exam (11/20/2022 11:57 AM CDT) P athologist Signature UA WBC 3-4 (A) 0 - 2 /HPF [place] Comment: Some reporting parameters within the Uri nalysis test have changed due to the implementation of new instrumentation in the [facility], allowing greater sensitivity of measurement. Urinalysis results rep orted by the [facility] using existing instrumentation, as well as Urinalysis t esting performed manually or by backup methodology at the [facility] will remain relatively unchanged. New reporting parameters and units will not be reported for all [facility]. All components of UA Microscopic Exam performed at [facility], [address] [place] [address] UA RBC 0-2 0 - 2 /HPF [place] Comment: As part of the UA Microscopic E xam performed at [facility], [address] [place] [address] UA Mucous TRACE Not Seen-Trace /HPF [place] Comment: As part of the UA Microscopic E xam performed at [facility], [address] [place] [address] UA Bacteria OCC NOT SEEN /HPF [place] Comment: As part of the UA Microscopic E xam performed at [facility], [address] [place] [address] UA Squam Epi 1+ (A) None-Occasional /HPF [place] Comment: As part of the UA Microscopic E xam performed at [facility], [address] [place] [address] UA Hyal Cast 0-2 0 - 2 /LPF [place] Comment: As part of the UA Microscopic E xam performed at [facility], [address] [place] [address] Specimen Anatomical Collection Method Collection Time Receive d Time (Source) Location / / Volume Laterality Urine 11/20/2022 11:57 11/20/2022 AM CDT 12:06 PM CDT Risa RENNER LAB BLOOD ORDERABLES Performing Organization Address City/State/ZIP Code Phon e Number [address] (ABNORMAL) Urinalysis w/Microscopic if Indicated (11/20/2022 11:57 AM CDT)Only the most recent of3 resultswithin the time period is included. athologist Signature UA Color Yellow Straw-Yellow [place] Comment: All components of UA Macroscopi c performed at [facility], [address] [place] [address] UA Appear Clear Clear [facility] Comment: As part of the UA Macroscopic p erformed at [facility], [address] [place] [address], [place] [address] UA Glucose NEG NEG mg/dL [place] Comment: As part of the UA Macroscopic p erformed at [facility], [address] [place] [address], [place] [address] UA Bili NEG NEG [facility] Comment: As part of the UA Macroscopic p erformed at [facility], [address] [place] [address] UA Ketones NEG NEG mg/dL [facility] Comment: As part of UA Macroscopic or as an individual orderable testing performed at [facility], [address] [place] [address], [place] [address] UA Spec Grav 1.010 1.003 - 1.[address] [place] Comment: As part of UA Macroscopic or as an individual orderable testing performed at [facility], [address] [place] [address] UA Blood NEG NEG [facility] Comment: As part of the UA Macroscopic p erformed at [facility], [address] [place] [address] UA pH 6.5 5.0 - 9.[address] [facility] Comment: As part of UA Macroscopic or as an individual orderable testing performed at [facility], [address] [place] [address] UA Protein NEG NEG mg/dL [facility] Comment: As part of the UA Macroscopic p erformed at [facility], [address] [place] [address] UA Urobilinogen NEG NEG [facility] Comment: As part of the UA Macroscopic p erformed at [facility], [address] [place] [address] UA Nitrite NEG NEG [facility] Comment: As part of the UA Macroscopic p erformed at [facility], [address] [place] [address], [place] [address] UA Leuk Est Trace (A) NEG [place] Comment: As part of the UA Macroscopic p erformed at [facility], [address] [place] [id number] Specimen Anatomical Collection Method Collection Time Receive d Time (Source) Location / / Volume Laterality Urine 11/20/2022 11:57 11/20/2022 AM CDT 12:06 PM CDT Risa RENNER URINE ORDERABLES Performing Organization Address City/[facility]/[place]IP [place] [address] [place] [address] (ABNORMAL) Culture, Urine (11/20/2022 11:57 AM CDT)Only the most recent of2 resultswithin the time period is included. [facility] gist Method Time Signature Final Report <10,000 cfu/ml Normal site daria present. [facility] Generally of low significance. BARBARA Correlate with clinical data and culture history. [facility] (A) Specimen Anatomical Collection Method Collection Time Receive d Time (Source) Location / / Volume Laterality Urine, Clean 11/20/2022 11:57 11/20/2022 3:35 Catch AM CDT PM CDT Comment: written on the specimen label ( wipe not used by pt) Risa RENNER MICROBIOLOGY - GENERAL ORDER BUZZ Performing Organization Address City/[facility]/ZIP Code Phon e Number [facility] Unless otherwise noted, [place] [address] CENTER all lab tests performed by: Division of Pathology and Laboratory Medicine [facility]5 Rebecca Burroughs (ABNORMAL) .Serum Creatinine (11/20/2022 10:41 AM CDT)Only the most recent of4 resultswithin the time period is included. athologist Signature Creatinine 1.20 (H) 0.51 - 0.95 [place] mg/dL Comment: Testing performed at [facility], [address] [place] [id number] Specimen Anatomical Collection Method Collection Time Receive d Time (Source) Location / / Volume Laterality Blood 11/20/2022 10:41 11/20/2022 AM CDT 10:57 AM CDT Danisha Arias MD LAB BLOOD ORDERABLES Performing Organization Address City/[facility]/ZIP Code Phon e Number [address] (ABNORMAL) .CBC (11/20/2022 10:41 AM CDT)Only the most recent of14 resultswithin the time period is included. athologist Signature WBC 3.3 (L) 4.0 - 11.[address] [facility] K/uL Comment: All components of the CBC perfo rmed at [facility], [address] [place] [address] RBC 3.69 (L) 4.00 - 5.50 M/uL [facility] Comment: As part of CBC testing performe d at [facility], [address] [place] [address] Hgb 12.3 12.0 - 16.0 gm/dL [place] Comment: As part of CBC or as an individ ual orderable testing performed at [facility], [address] [place] [address] Hct 37.1 37.0 - 47.0 % [place] Comment: As part of CBC or as an individ ual orderable testing performed at [facility], [address] [place] [address] MCV 100 (H) 82 - 98 fL [place] Comment: As part of CBC testing performe d at [facility], [address] [place] [address] MCH 33.3 (H) 27.0 - 31.0 pg [facility] Comment: As part of CBC testing performe d at [facility], [address] [place] [address] MCHC 33.2 31.0 - 36.0 gm/dL [place] Comment: As part of CBC testing performe d at [facility], [address] [place] [address] RDW-SD 59.6 (H) 35.1 - 46.3 fL [place] Comment: As part of CBC testing performe d at [facility], [address] [place] [address] RDW-CV 16.6 (H) 12.0 - 15.5 % [place] Comment: As part of CBC testing performe d at [facility], [address] [place], [place] [address] Platelet count 154 140 - 440 K/uL [place] Comment: As part of CBC or as an individ ual orderable testing performed at [facility], [address] [place] [address] MPV 8.5 4.0 - 10.4 fL [place] Comment: As part of CBC testing performe d at [facility], [address] [place] [address] Specimen Anatomical Collection Method Collection Time Receive d Time (Source) Location / / Volume Laterality Blood 11/20/2022 10:41 11/20/2022 AM CDT 10:57 AM CDT Danisha Arias MD LAB BLOOD ORDERABLES Performing Organization Address City/State/ZIP Code Phon e Number [place] [id number] [address] [place] [address] (ABNORMAL) Glomerular Filtration Rate (11/20/2022 10:41 AM CDT)Only the most recent of4 resultswithin the time period is included. athologist Signature eGFR 50 (L) >=60 [place] mL/min/1.73 sq. m Comment: The eGFRcr is calculated with the 2020 KD-EPI creatinine equation using creatinine, patient's age, and sex for adults 18 years of age and older. Other factors, especially muscle mass, may affect accuracy and need to be considered. According to the Kidney Disease: Improvi ng Global Outcomes (KDIGO) CKD Work Group 2012 Clinical Practice Guideline, chronic kidney disease (CKD) is defined as the abnormalities of kidney structure or function, present for more than 3 months, with implications for health. CKD should be c lassified by cause, GFR category, and albuminuria category. KDIGO guidelines provide the following GFR categories Stage Description GFR mL/min/1.73 m2 G1* Normal or high >= 90 G2* Mildly decreased 60-89 G3a Mildly to moderately decreased 45-59 G3b Moderately to severely decreased 30- 44 G4 Severely decreased 15-29 G5 Kidney failure <15 *In the absence of evidence of kidney da mage, neither G1 nor G2 fulfill criteria for CKD. Testing performed at [facility], [address] [place], [place] [id number] Specimen Anatomical Collection Method Collection Time Receive d Time (Source) Location / / Volume Laterality Blood 11/20/2022 10:41 11/20/2022 AM CDT 10:57 AM CDT Danisha Arias MD LAB BLOOD ORDERABLES Performing Organization Address [facility] [place] [address] [place] [address] Fractionated Bilirubin (11/20/2022 10:41 AM CDT)Only the most recent of3 results within the time period is included. athologist Signature Bili Total 0.4 <=1.2 mg/dL [place] Comment: Indocyanine Green (ICG) may cause falsel y elevated bilirubin results. Total and direct bilirubin must not be measured from samples containing indocyanine green. False elevation of total bilirubin can b e seen in patients with IgG concentrations above 28 g/L. Testing performed at [facility], [address] [place] [address] Bili Direct <0.2 <=0.3 mg/dL [place] Comment: Indocyanine Green (ICG) may cause falsel y elevated bilirubin results. Total and direct bilirubin must not be measured from samples containing indocyanine green. Testing performed at [facility], [address] [place] [address] Bili Indirect See Note 0.0 - 0.9 mg/dL [place] Comment: Unable to calculate Indirect Bilirubin r esult due to some parameters are outside reportable range Testing performed at [facility], [address] [place], [place] [id number] Specimen Anatomical Collection Method Collection Time Receive d Time (Source) Location / / Volume Laterality Blood 11/20/2022 10:41 11/20/2022 AM CDT 10:57 AM CDT Danisha Arias MD LAB BLOOD ORDERABLES Performing Organization Address City/[facility] [place] [address] [place] [address] (ABNORMAL) Differential (11/20/2022 10:41 AM CDT)Only the most recent of14 resultswithin the time period is included. athologist Signature Neutrophil % 53.1 42.0 - 66.0 [place] % Comment: All components of the Different ial performed at [facility], [address] [place] [address] Lymphocyte % 28.2 24.0 - 44.0 % [place] Comment: As part of Differential, testin g performed at [facility], [address] [place] [address] Monocyte % 14.7 (H) 2.0 - 7.0 % [place] Comment: As part of Differential, testin g performed at [facility], [address] [place] [address] Eosinophil % 3.1 1.0 - 4.0 % [place] Comment: As part of Differential, testin g performed at [facility], [address] [place] [address] Basophil % 0.9 0.0 - 1.0 % [place] Comment: As part of Differential, testin g performed at [facility], [address] [place] [address] Neutrophil Abs 1.73 1.70 - 7.30 K/uL [place] Comment: As part of Differential, testin g performed at [facility], [address] [place] [address] Lymphocyte Abs 0.92 (L) 1.00 - 4.80 K/uL [place] Comment: As part of Differential, testin g performed at [facility], [address] [place] [address] Monocyte Abs 0.48 0.08 - 0.70 K/uL [place] Comment: As part of Differential, testin g performed at [facility], [address] [place] [address] Eosinophil Abs 0.10 0.04 - 0.40 K/uL [place] Comment: As part of Differential, testin g performed at [facility], [address] [place] [address] Basophil Abs 0.03 0.00 - 0.10 K/uL [place] Comment: As part of Differential, testin g performed at [facility], [address] [place] [address] Specimen Anatomical Collection Method Collection Time Receive d Time (Source) Location / / Volume Laterality Blood 11/20/2022 10:41 11/20/2022 AM CDT 10:57 AM CDT Danisha Arias MD LAB BLOOD ORDERABLES Performing Organization Address City/[facility]/ZIP Code Phon e Number [address] BUN (11/20/2022 10:41 AM CDT)Only the most recent of4 resultswithin the time period is included. athologist Signature BUN 14 6 - 23 mg/dL [place] Comment: Testing performed at [facility], [address] [place] [address] Specimen Anatomical Collection Method Collection Time Receive d Time (Source) Location / / Volume Laterality Blood 11/20/2022 10:41 11/20/2022 AM CDT 10:57 AM CDT Danisha Arias MD LAB BLOOD ORDERABLES Performing Organization Address City/[facility] Code Phon e Number [address] ALT (11/20/2022 10:41 AM CDT)Only the most recent of6 resultswithin the time period is included. athologist Signature ALT 13 <=33 U/L [place] Comment: Testing performed at [facility], [address] [place] [address] Specimen Anatomical Collection Method Collection Time Receive d Time (Source) Location / / Volume Laterality Blood 11/20/2022 10:41 11/20/2022 AM CDT 10:57 AM CDT Danisha Arias MD LAB BLOOD ORDERABLES Performing Organization Address City/[facility]/ZIP Code Phon e Number [address] Aspartate Aminotransferase (11/20/2022 10:41 AM CDT)Only the most recent of6 resultswithin the time period is included. athologist Signature AST 17 <=32 U/L [place] Comment: Testing performed at [facility], [address] [place] [address] Specimen Anatomical Collection Method Collection Time Receive d Time (Source) Location / / Volume Laterality Blood 11/20/2022 10:41 11/20/2022 AM CDT 10:57 AM CDT Danisha Arias MD LAB BLOOD ORDERABLES Performing Organization Address City/[facility]/ZIP Code Phon e Number [address] Total Protein (11/20/2022 10:41 AM CDT)Only the most recent of3 resultswithin the time period is included. athologist Signature Total Protein 7.3 6.4 - 8.3 [place] g/dL Comment: Testing performed at [facility], [address] [place] [address] Specimen Anatomical Collection Method Collection Time Receive d Time (Source) Location / / Volume Laterality Blood 11/20/2022 10:41 11/20/2022 AM CDT 10:57 AM CDT Danisha Arias MD LAB BLOOD ORDERABLES Performing Organization Address City/[facility]/ZIP Code Phon e Number [address] Alkaline Phosphatase (11/20/2022 10:41 AM CDT)Only the most recent of6 results within the time period is included. athologist Signature Alk Phos 63 35 - 104 U/L [place] Comment: Testing performed at [facility], [address] [place] [address] Specimen Anatomical Collection Method Collection Time Receive d Time (Source) Location / / Volume Laterality Blood 11/20/2022 10:41 11/20/2022 AM CDT 10:57 AM CDT Danisha Arias MD LAB BLOOD ORDERABLES Performing Organization Address City/State/ZIP Code Phon e Number [address] Glucose Level (11/20/2022 10:41 AM CDT)Only the most recent of3 resultswithin the time period is included. athologist Signature Glucose Level 91 70 - 99 [place] mg/dL Comment: Effective 01/18/16, the glucose reference intervals have been updated based on [place] [employer] guidelines (Standards of Medical Care in Diabetes 2016. Diabetes Care 2016; 39: S13-S22). Fasting blood glucose: Normal: 70-99 mg/dL Impaired fasting glucose (increased risk for diabetes or pre-diabetes): 100- 125 mg/dL Diabetes mellitus: >/=126 mg/dL Random blood glucose: Normal: 70-199 mg/dL Note: Random glucose >100 mg/dL is assoc iated with increased risk for diabetes Testing performed at [facility], [address] [place] [address] Specimen Anatomical Collection Method Collection Time Receive d Time (Source) Location / / Volume Laterality Blood 11/20/2022 10:41 11/20/2022 AM CDT 10:57 AM CDT Danisha Arias MD LAB BLOOD ORDERABLES Performing Organization Address City/State/ZIP Code Phon e Number [address] Calcium Level (11/20/2022 10:41 AM CDT)Only the most recent of3 resultswithin the time period is included. athologist Signature Calcium Lvl 9.4 8.4 - 10.2 [place] mg/dL Comment: Testing performed at [facility], [address] [place] [address] Specimen Anatomical Collection Method Collection Time Receive d Time (Source) Location / / Volume Laterality Blood 11/20/2022 10:41 11/20/2022 AM CDT 10:57 AM CDT Danisha Arias MD LAB BLOOD ORDERABLES Performing Organization Address City/State/ZIP Code Phon e Number [address] Albumin Level (11/20/2022 10:41 AM CDT)Only the most recent of3 resultswithin the time period is included. athologist Signature Albumin Lvl 4.1 3.5 - 5.2 [place] gm/dL Comment: Testing performed at [facility], [address] [place] [address] Specimen Anatomical Collection Method Collection Time Receive d Time (Source) Location / / Volume Laterality Blood 11/20/2022 10:41 11/20/2022 AM CDT 10:57 AM CDT Danisha Arias MD LAB BLOOD ORDERABLES Performing Organization Address City/[facility]/ZIP Code Phon e Number [place] [phone] [address] [place] [address] Electrolyte Panel (11/20/2022 10:41 AM CDT)Only the most recent of3 results within the time period is included. athologist Signature Sodium Lvl 139 136 - 145 [place] mEq/L Comment: Testing performed at [facility], [address] [place] [address] Potassium Lvl 3.9 3.5 - 5.1 mEq/L [place] Comment: Testing performed at [facility], [address] [place], [place] [address] Chloride 104 98 - 107 mEq/L [place] Comment: Testing performed at [facility], [address] [place], [place] [address] CO2 28 22 - 29 mEq/L [place] Comment: Testing performed at [facility], [address] [place] [address] Anion Gap 7 4 - 14 mEq/L [place] Comment: Testing performed at [facility], [address] [place] [address] Specimen Anatomical Collection Method Collection Time Receive d Time (Source) Location / / Volume Laterality Blood 11/20/2022 10:41 11/20/2022 AM CDT 10:57 AM CDT Danisha Arias MD LAB BLOOD ORDERABLES Performing Organization Address City/State/ZIP Code Phon e Number [place] [phone] [address] [place] [address] Pathology Surgical Interpretation (05/24/2022 5:00 PM CARE DIRECTOR RN) Component Value Ref Test Analysis Performed Pathologis t Range Method Time At Signature Submitted Infiltrating duct 06/04/2022 [facility] Clinical History carcinoma of 10:48 AM right female CARE DIRECTOR RN breast [C50.911] Diagnosis A: Right axillary sentinel lymph node #1: 06/04/2022 [facility] Electronically METASTATIC CARCINOMA IN ONE OF TWO LYMPH NODES. 10:48 AM signed by Abraham LARGEST TUMOR DEPOSIT SIZE: 7 MM. CARE DIRECTOR RN MD Mary Beth on EXTRACAPSULAR EXTENSION: Not identified. 06/04/2022 at 10:48 AM B: Right axillary sentinel lymph node #2: METASTATIC CARCINOMA IN ONE LYMPH NODE. EXTRACAPSULAR EXTENSION: Not identified. C: Right axillary sentinel lymph node #3: One lymph node, no tumor present. D: Right axillary sentinel lymph node #4: Two lymph nodes, no tumor present. E: Right segmental mastectomy: RESIDUAL INVASIVE CARCINOMA WITH TREATMENT EFFECT. Invasive carcinoma involves a tumor bed of approximately 2.5 x 2 cm, comprising approximately 1% of tumor cellularity by area. 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 No definitive lymphovascular invasion is identified. Invasive carcinoma is less t martell 1 mm from the posterior margin; DCIS is 1.5 mm from the posterior margin. Other margins more than 1 cm from carcinoma. Nipple and skin, no tumor present. F: Right breast additional posterior margin: Scattered microscopic foci o f residual invasive carcinoma, measuring 3 mm in greatest dimension. Carcinoma is more than 5 mm from the new margin. G: Left chest wall port-a-cath: guest services coordinator, gross description only. H: Right axillary contents levels 1 & 2: Twelve lymph nodes, no tumor present. I: Right breast skin: Skin, subcutaneous fibroadip ose tissue and focal breast epithelium, no tumor present. Comment RCB Input Variables 06/04/2022 [facility] Dimensions of Residual Primary Tumor Area: 25 x 20 mm 10:48 AM Percent Cancer Cellularity of Residual Tumor Area: 1 % (invasive carcinoma) CARE DIRECTOR RN Percent of Residual Cancer that is in-situ: NA Total Number of Lymph Nodes with Residual Metastatic Carcino ma: 2 Size of Largest Metastasis: 7 mm Synoptic INVASIVE CARCINOMA OF THE BREAST: Resection 06/04/2022 [facility] Checklist INVASIVE CARCINOMA OF THE BREAST: COMPLETE EXCISION - All Specimens 10:48 AM 8th Edition - Protocol posted: 09/13/2021 CARE DIRECTOR RN SPECIMEN Procedure: Excision (less than total mastectomy) Specimen Laterality: Right TUMOR Histologic Type: Invasive carcinoma of no special t ype (ductal) Histologic Grade ([place] Histologic Score): Glandular ([place]) / Tubular Differentiation: Score cannot be determined Nuclear Pleomorphism: Score cannot be determined Mitotic Rate: Score cannot be determined Overall Grade: Score cannot be determined: Post treatment Tumor Size: Greates t dimension of largest invasive focus (Millimeters): 25 mm Ductal Carcinoma In Situ (DCIS): Present Lymphovascular Invasion: Not identified Treatment Effect in the Breast: Probable or definite response to presurgical therapy in the invasive carcinoma Treatment Effect in the Lymph Nodes: Probable or definite response to presurgical therapy in metastatic carcinoma MARGINS Margin Status for Invasi ve Carcinoma: All margins negative for invasive carcinoma Distance from Invasiv e Carcinoma to Closest Margin: Greater than: 5 mm Margin Status for DCIS: All margins negative for DC IS Distance from DCIS to Closest Margin: Greater th an: 5 mm REGIONAL LYMPH NODES Regional Lymph Node Status: : Tumor present in regional lymph node(s) Number of Lymph Nodes with Macrometastases: 2 Number of Lymph Nodes with Micrometastases: 0 Number of Lymph Nodes with Isolated Tumor Cells: 0 Size of Largest [place] Metastatic Deposit: 7 m m Extranodal Extension: Not identified Total Number of Lymph Nodes Examined (sentinel and non-sentinel): 18 Number of [place] Nodes Examined: 6 PATHOLOGIC STAGE CLASSIFICATION (pTNM, AJCC 8th Edition) Reporting of pT, pN, and (when applicable) pM categories is based on information available to the pathologist at the time the report is issued. As per the AJCC (Chapter 1, 8th Ed.) it is the managin g physician s responsibility to establish the final pathologic stage based upon all pertinent information, including but potentially not limited to this pathology report. TNM Descriptors: y (post-treatment) pT Category: pT2 pN Category: pN1a Gross A: 06/04/2022 [facility] Description [place] lymph node, axillar y, right axillary sln#1- hot and blue invivo 124, exvivo 116 - contained clipped node; localizer type: vane-netbackup administrator; specimen radiograph: yes - or#2: A 5.0 x 3.5 x 1.3 cm aggre 10:48 AM gate of fibroadipose tissue. One biopsy clip and one VANE netbackup administrator is identified on radiographic picture and grossly. Dissection reveals 2 possible lymph nodes (2.5 x 1.5 x 1.0 cm and 1.5 x 0.5 x 0.5 cm). CARE DIRECTOR RN Sectioning of the 2.5 cm pos sible lymph node reveals the Vane netbackup administrator and biopsy clip. The possible lymph node are serially sectioned, submitted entirely for frozen diagnosis, and resubmitted for permanent processing as follows: SECTION CODE: A1-A3, the cl ipped possible lymph node, frozen remnant resubmitted; A4, one possible lymph node, frozen remnant resubmitted. YS B: [place] lymph node, axillar y, right axillary sln#2 - hot and blue - invivo 124- exvivo 89 - or#2: Received fresh for frozen section is a single irregular unoriented portion of yellow-red lobulated fibr ofatty tissue (3.3 x 2.6 x 1 .3 cm) serially sectioned to reveal a single possible lymph node (1.4 cm greatest dimension). One possible lymph node trisected and entirely submitted in B1 for frozen section and permanent processing. PB C: [place] lymph node, axillar y, right axillary sln#3 - hot and blue - invivo 60, exvivo 131 - or#2: A 2.5 x 1.5 x 0.8 cm portion of fibroadipose tissue. Dissection reveals a 1.0 cm in greatest dimension possible lymph node. The pos sible lymph node is serially sectioned and submitted entirely in C1. Time in formalin: 5:51 PM YS D: [place] lymph node, axillar y, right axillary sln#4 - hot and blue - invivo 33, exvivo 71 - or#2: 2 possible lymph nodes (1.0 cm and 0.8 cm in greatest dimension). The possible lymph nodes are serially sectioned and submitted entirely as follows: SECTION CODE: D1-D2, one possible lymph node each cassette. Time in formalin: 5:51 PM YS E: Breast, right, right segment al mastectomy; localizer type: vane-netbackup administrator; short stitch superior, long stitch lateral, ink richter posterior; specrimen radiograph: yes: A central segmental mastectomy (10.5 x 10.5 x 4.0 cm, and 166 g) wi th dark zhao skin (6.5 x 6.0 cm), and the nipple (1.1 x 1.1 x 0.7 cm). The specimen is oriented with short stitch at superior, long stitch at lateral, and ink on posterior. Th e specimen is serially slice d from lateral to medial into 8 slices. An ill- defined mass with fibrosis (3 x 2.3 x 2.0 cm) is identified at 1 cm beneath the nipple in slice #4 and slice #5. The mass gross ly extend to posterior lyndon n, and is 3 cm from the superior margin, 3.3 cm from inferior margin. All slices are for x-ray examination, and the radiologist evaluation. A biopsy clip and a Vane are iden tified in the specimen. The specimen is sampled per [place]. INK CODE: anterior-yellow, posterior-black, superior-blue, inferior-ink, medial and lateral-red SECTION CODE: E1 the E2, ni pple; E3, lateral perpendicular margin; E4, adjacent tissue in slice #2; A5, circled area in slice #3; E4-E10, mass associated with a Vane including margin in slice #4; E11 a nd E12, mass associated with a biopsy clip in slice #5; E13, adjacent tissue in slice #6; E14, medial perpendicular margin. Time in formalin: 6:21 PM PX F: Breast, right, additional ma rgin, right breast additional posterior margin - clip richter true margin - or#2: A 6.5 x 5.1 x 2.2 cm portion of fibroadipose tissue that is oriented by the surgeon with clips on the true margin. The adeel e margin is inked blue and the specimen is sectioned. Cut surfaces are composed of predominantly yellow lobulated adipose tissue with areas of dense white fibrous tissue. Rep resentative sections are submitted in cassettes F1-F10. Time in formalin is 20:00 on 05/24/2022. MF G: Chest wall, left, left chest wall portacath - id only or#2: Consists of a translucent Port-A-Cath measuring 3.2 x 2.2 x 1.5 cm with attached white tubing (25.0 cm in length by 0.2 m in diameter). No sig nificant defects are noted. No soft tissue is attached. Inscribed on one aspect is: BARD, 2903, CT. The specimen is for gross only. MF H: Axillary contents, right, ri ght axillary contents level 1 & 2 - or#2: A 7.0 x 6.7 x 2.3 cm portion of fibrofatty tissue. The specimen is palpated and dissected to demonstrate 13 possible lymph nodes ranging from 0.4-3.8 cm in greatest dimension. SECTION CODE: H1, three poss ible lymph nodes; H2, four possible lymph nodes; H3, three possible lymph nodes; H4, one possible lymph node (bisected); H5, one possible lymph node (trisected); H6-H9, one possible lymph node (serially sectioned). Time in formalin is 20:00 on 05/24/2022. MF I: Breast, right, skin, or#2: C onsists of two fragments of brown-zhao wrinkled skin with underlying fibrofatty tissue aggregating to 4.3 x 3.9 x 1.5 cm. Sectioning reveals unremarkable yellow lobulated cut surfaces. No distinct lesion is noted. A brewery representative section is submitted in cassettes I1. Time in formalin is 20:00 on 05/24/2022. MF Intraoperative A: 06/04/2022 [facility] Evaluation [place] lymph node, axillar y, right axillary sln#1- hot and blue invivo 124, exvivo 116 - contained clipped node; localizer type: vane-netbackup administrator; specimen radiograph: yes - or#2: 10:48 AM Metastatic carcinoma. LH/FLZ CARE DIRECTOR RN B: [place] lymph node, axillar y, right axillary sln#2 - hot and blue - invivo 124- exvivo 89 - or#2: Metastatic carcinoma. LH/FLZ C: [place] lymph node, axillar y, right axillary sln#3 - hot and blue - invivo 60, exvivo 131 - or#2: Defer to permanent. LH/FLZ D: [place] lymph node, axillar y, right axillary sln#4 - hot and blue - invivo 33, exvivo 71 - or#2: Defer to permanent. LH/FLZ E: Breast, right, right segment al mastectomy; localizer type: vane-netbackup administrator; short stitch superior, long stitch lateral, ink richter posterior; specrimen radiograph: yes: 1 clip and 1 VANE. Spicules from the tumor extend to the posterior margin. LH/FLZ Biomarker Primary tumor block: E7 06/04/2022 [facility] Block(s) Normal Block: E1 10:48 AM CARE DIRECTOR RN Disclaimer "Some tests 06/04/2022 [facility] reported here may 10:48 AM have been CARE DIRECTOR RN developed and performance characteristics determined by [facility]. These tests have not been specifically cleared or approved by the U.S. Food and Drug Administration. If applicable, controls were reviewed and showed appropriate reactivity." Specimen (Source) Anatomical Collection Method Collection Time Re ceived Time Location / / Volume Laterality Tissue ([place] 05/24/2022 5:00 05/24/20 22 5:16 Lymph Node, PM CARE DIRECTOR RN PM CARE DIRECTOR RN Axillary) Tissue ([place] 05/24/2022 5:12 05/24/20 22 5:16 Lymph Node, PM CARE DIRECTOR RN PM CARE DIRECTOR RN Axillary) Tissue ([place] 05/24/2022 5:19 05/24/20 22 5:27 Lymph Node, PM CARE DIRECTOR RN PM CARE DIRECTOR RN Axillary) Tissue ([place] 05/24/2022 5:21 05/24/20 22 5:27 Lymph Node, PM CARE DIRECTOR RN PM CARE DIRECTOR RN Axillary) Tissue (Breast, 05/24/2022 5:23 2 5:42 Right) PM CARE DIRECTOR RN PM CARE DIRECTOR RN Tissue (Breast, 05/24/2022 5:40 2 7:29 Right, Additional PM CARE DIRECTOR RN AM CARE DIRECTOR RN Margin) Tissue (Chest 05/24/2022 5:53 05/25/2022 7:29 Wall, Left) PM CARE DIRECTOR RN AM CARE DIRECTOR RN Tissue (Axillary 05/24/2022 5:58 05/25/20 22 7:29 Contents, Right) PM CARE DIRECTOR RN AM CARE DIRECTOR RN Tissue (Breast, 05/24/2022 6:59 2 7:40 Right, Skin) PM CARE DIRECTOR RN AM CARE DIRECTOR RN Madeleine Plaza MD LAB PATHOLOGY ORDERABLES Performing Organization Address City/State/ZIP Code Phon e Number [facility] [place] [address] [address] Breast Specimen Radiograph (Right) (05/24/2022 12:00 PM CARE DIRECTOR RN) Anatomical Region Laterality Modality Breast N/A Digital Radiography Specimen (Source) Anatomical Collection Method Collection Time Re ceived Time Location / / Volume Laterality 05/24/2022 6:19 PM CARE DIRECTOR RN Impressions 05/24/2022 6:19 PM CARE DIRECTOR RN As discussed above. Radiography confirms removal of 2 Vane S cout localizers. Narrative 05/24/2022 6:19 PM CARE DIRECTOR RN Examination: Specimen Radiograph Right 05/24/2022. Indication: Breast Cancer Technique: Right breast and axillary spe cimens submitted for review. There is a total of 3 radiographic images. The en b loc specimen is imaged on the second radiographic image. Findings: There is a mass with calcifica tions, a biopsy clip and a Vane Tailoring Teacher reflector in the breast specimen. There is a Vane Tailoring Teacher reflector and biopsy clip in the axillary specimen. Findings were electronically annotated and discussed with the pathologist Dr. Mary Beth flower the time of this dictation. Procedure Note Christina Yates MD - 05/24/2022Formatti ng of this note might be different from the original. Examination: Specimen Radiograph Right 1 07/25/2021. Indication: Breast Cancer Technique: Right breast and axillary spe cimens submitted for review. There is a total of 3 radiographic images. The en b loc specimen is imaged on the second radiographic image. Findings: There is a mass with calcifica tions, a biopsy clip and a Vane Tailoring Teacher reflector in the breast specimen. There is a Vane Tailoring Teacher reflector and biopsy clip in the axillary specimen. Findings were electronically annotated and discussed with the pathologist Dr. Mary Beth flower the time of this dictation. IMPRESSION: As discussed above. Radiography confirms removal of 2 Vane S cout localizers. Chelsie RENNER IMRoni MAMMOGRAPHY ORDERABLES COVID-19 (SARS-CoV-2)Asymptomatic-LT (05/24/2022 11:51 AM CARE DIRECTOR RN) [facility] Method Time Signature COVID19 Not Detected Not Detected HANNAH CLAY (SARS-CoV-2) [facility] COVID19 SARS Pre-OR [place] Indication Procedure [facility] Covid 19 See Note [place] Comment [facility] Comment: The carol SARS-CoV-2 nucleic acid test f or use on the carol [employer] System is a real-time RT-PCR assay intended for the qualitative detection of SARS-CoV-2 (COVID-19) viral RNA in nasopharyngeal swabs from either individuals suspected of COVID-1 9 by their healthcare provider or from any individu al, including individuals without symptoms or other reasons to suspect COVID-19. A fact sheet for patients provided by the wood mill supervisor ([employer]) can be reviewed at: https://www.fda.gov/media/627917/yvonne guillaume A fact sheet for Health Care providers is provided by the wood mill supervisor ([employer]) and can be reviewed at: https://www.fda.gov/media/076217/download Results must be interpreted within the c ontext of all relevant clinical and laboratory findings and should not form the sole basis for a diagnosis or treatment decision. Positive results do not rule out bacterial infection or co- infection with other viruses. Negative results do not preclud e SARS-CoV-2 infection and must be combined with clinical observations, patient history, and/or epidemiological information. This assay has been authorized by the [facility] for use only under Emergency Use Authorization (EUA) in laboratories that have been CLIA-certified to perform moderate-complexity and high-complexity tests. The [facility] at [facility], CLIA Accreditation #[id number] a [facility] Accreditation #[id number], verified the performance characteristics of this assay. Internal controls are used to monitor all stages of the test process. Specimen (Source) Anatomical Collection Method Collection Time Re ceived Time Location / / Volume Laterality Nasopharyngeal Swab 05/24/2022 11:51 12/0 06/2021 AM CARE DIRECTOR RN 12:30 PM CARE DIRECTOR RN Madeleine Plaza MD MICROBIOLOGY - GENERAL O RDERABLES Performing Organization Address City/State/ZIP Code Phon e Number [facility] Unless otherwise noted, [place] [address] L[place] all lab tests performed by: Division of Pathology and Laboratory Medicine [facility] EKG, 12-Lead (05/24/2022) Specimen (Source) Anatomical Location Collection Method / Collectio n Time Received Time / Laterality Volume Narrative This result has an attachment that is no t available. Elizabeth Izquierdo MD ECG ORDERABLES Performing Organization Address City/State/ZIP Code Phon e Number [facility] Post Procedure Mammogram Right (05/23/2022 3:52 PM CARE DIRECTOR RN) Anatomical Region Laterality Modality Breast Left Mammography Specimen (Source) Anatomical Collection Method Collection Time Re ceived Time Location / / Volume Laterality 05/23/2022 5:17 PM CARE DIRECTOR RN Narrative 05/23/2022 5:17 PM CARE DIRECTOR RN Clinical Indication: Patient is a 66 year old female seen for breast cancer. ULTRASOUND GUIDED VANE PREMIUM SERVICE REPRESENTATIVE PLACEMENT R IGHT Comparison:The present examination has b een compared to prior imaging studies performed at [facility] on 10/26/2021, 02/09/2022 and 04/27/2022. Technique: Targeted ultrasound was perfo rmed of the lesion(s) of interest to guide localization. Findings: Mass in the right breast subar eolar position, 2 cm from the nipple. Procedures(s): Ultrasound-Guided Vane Sc out Reflector Localization - right breast Primary Proceduralist: Dr. Marleen Gibbs Informatics Manager(s): None Consent: The consent for Vane Tailoring Teacher refl tiffanie placement was performed The presence of the signed consent form in [facility] patient's electronic health record was confirmed prior to the procedure. [facility] consent includes a written commitment to have the reflector(s) surgically daniel chico. Procedure(s) in Detail: A time-out was p erformed prior to the start of the procedure and the correct patient, proce dure, presence of consent, site, and side were confirmed with all members of the team. The skin was prepped in the usual sterile fashion with chlorhexidine . Nessacaine was administered for local anesthesia. one Vane Tailoring Teacher reflectors were advanced into the first lesion of interest. One Vane Tailoring Teacher reflector was advanced into the second lesion of the right axillary node u shaped clip interest i n the axillary node The approach was lateral to medial. After adjustment of [facility] needle tip(s), reflector deployment was performed. After the procedure, a co nsole and a handheld probe were used to confirm detectable signal from the impla nted reflector(s). Post-procedure Mammography: Post-procedu re mammography was performed and reflector location(s) was confirmed. A d iagram was drawn depicting the relationship of the reflector(s) and the localized lesion(s). The diagram was uploaded in the patient's electronic [facility] record. Estimated Blood Loss: Minimal Specimen(s) Removed: No Immediate Complications: None Post-procedure diagnosis: Breast cancer Disposition: The patient was discharged from Breast Imaging to the next clinical appointment in good condition. Impression: 1. Technically successful ultrasound hazel ded Vane Tailoring Teacher reflector localization of the mass in the right breast subareolar position, 2 cm from the nipple. and right axillary node n Post procedural right mammogram was perf ormed. Procedure Note Marleen Gibbs MD - 05/23/2022Formatt ing of this note might be different from the original. Clinical Indication: Patient is a 66 yea r old female seen for breast cancer. ULTRASOUND GUIDED VANE PREMIUM SERVICE REPRESENTATIVE PLACEMENT R IGHT Comparison:The present examination has b een compared to prior imaging studies performed at [facility] on 10/26/2021, 02/09/2022 and 04/27/2022. Technique: Targeted ultrasound was perfo rmed of the lesion(s) of interest to guide localization. Findings: Mass in the right breast subar eolar position, 2 cm from the nipple. Procedures(s): Ultrasound-Guided Vane Sc out Reflector Localization - right breast Primary Proceduralist: Dr. Marleen Gibbs Informatics Manager(s): None Consent: The consent for Vane Tailoring Teacher refl tiffanie placement was performed The presence of the signed consent form in [facility] patient's electronic health record was confirmed prior to the procedure. [facility] consent includes a written commitment to have the reflector(s) surgically daniel chico. Procedure(s) in Detail: A time-out was p erformed prior to the start of the procedure and the correct patient, proce dure, presence of consent, site, and side were confirmed with all members of the team. The skin was prepped in the usual sterile fashion with chlorhexidine . Nessacaine was administered for local anesthesia. one Vane Tailoring Teacher reflectors we re advanced into the first lesion of interest. One Vane Tailoring Teacher reflector was advanced in to the second lesion of the right axillary node u shaped clip interest in the axillary node The approach was lateral to medial. After adjustment of [facility] needle tip(s), reflector deployment was performed. After the procedure, a co nsole and a handheld probe were used to confirm detectable signal from the impla nted reflector(s). Post-procedure Mammography: Post-procedu re mammography was performed and reflector location(s) was confirmed. A d iagram was drawn depicting the relationship of the reflector(s) and the localized lesion(s). The diagram was uploaded in the patient's electronic [facility] record. Estimated Blood Loss: Minimal Specimen(s) Removed: No Immediate Complications: None Post-procedure diagnosis: Breast cancer Disposition: The patient was discharged from Breast Imaging to the next clinical appointment in good condition. Impression: 1. Technically successful ultrasound hazel ded Vane Tailoring Teacher reflector localization of the mass in the right breast subareolar position, 2 cm from the nipple. and right axillary node n Post procedural right mammogram was perf ormed. Chelsie RENNER IMRoni MAMMOGRAPHY ORDERABLES US Guided Axillary LN Non-Wire Localization Right (05/23/2022 3:21 PM CARE DIRECTOR RN) Anatomical Region Laterality Modality Lymph Node Right Ultrasound Specimen (Source) Anatomical Collection Method Collection Time Re ceived Time Location / / Volume Laterality 05/23/2022 5:17 PM CARE DIRECTOR RN Narrative 05/23/2022 5:17 PM CARE DIRECTOR RN Clinical Indication: Patient is a 66 year old female seen for breast cancer. ULTRASOUND GUIDED VANE PREMIUM SERVICE REPRESENTATIVE PLACEMENT R IGHT Comparison:The present examination has b een compared to prior imaging studies performed at [facility] on 10/26/2021, 02/09/2022 and 04/27/2022. Technique: Targeted ultrasound was perfo rmed of the lesion(s) of interest to guide localization. Findings: Mass in the right breast subar eolar position, 2 cm from the nipple. Procedures(s): Ultrasound-Guided Vane Sc out Reflector Localization - right breast Primary Proceduralist: Dr. Marleen Gibbs Informatics Manager(s): None Consent: The consent for Vane Tailoring Teacher refl tiffanie placement was performed The presence of the signed consent form in [facility] patient's electronic health record was confirmed prior to the procedure. e consent includes a written commitment to have the reflector(s) surgically daniel chico. Procedure(s) in Detail: A time-out was p erformed prior to the start of the procedure and the correct patient, proce dure, presence of consent, site, and side were confirmed with all members of the team. The skin was prepped in the usual sterile fashion with chlorhexidine . Nessacaine was administered for local anesthesia. one Vane Tailoring Teacher reflectors were advanced into the first lesion of interest. One Vane Tailoring Teacher reflector was advanced into the second lesion of the right axillary node u shaped clip interest i n the axillary node The approach was lateral to medial. After adjustment of t needle tip(s), reflector deployment was performed. After the procedure, a co nsole and a handheld probe were used to confirm detectable signal from the impla nted reflector(s). Post-procedure Mammography: Post-procedu re mammography was performed and reflector location(s) was confirmed. A d iagram was drawn depicting the relationship of the reflector(s) and the localized lesion(s). The diagram was uploaded in the patient's electronic [facility] record. Estimated Blood Loss: Minimal Specimen(s) Removed: No Immediate Complications: None Post-procedure diagnosis: Breast cancer Disposition: The patient was discharged from Breast Imaging to the next clinical appointment in good condition. Impression: 1. Technically successful ultrasound hazel ded Vane Tailoring Teacher reflector localization of the mass in the right breast subareolar position, 2 cm from the nipple. and right axillary node n Post procedural right mammogram was perf ormed. Procedure Note Marleen Gibbs MD - 05/23/2022Formatt ing of this note might be different from the original. Clinical Indication: Patient is a 66 yea r old female seen for breast cancer. ULTRASOUND GUIDED VANE PREMIUM SERVICE REPRESENTATIVE PLACEMENT R IGHT Comparison:The present examination has b een compared to prior imaging studies performed at [facility] on 10/26/2021, 02/09/2022 and 04/27/2022. Technique: Targeted ultrasound was perfo rmed of the lesion(s) of interest to guide localization. Findings: Mass in the right breast subar eolar position, 2 cm from the nipple. Procedures(s): Ultrasound-Guided Vane Sc out Reflector Localization - right breast Primary Proceduralist: Dr. Marleen Gibbs Informatics Manager(s): None Consent: The consent for Vane Tailoring Teacher refl tiffanie placement was performed The presence of the signed consent form in [facility] patient's electronic health record was confirmed prior to the procedure. Th e consent includes a written commitment to have the reflector(s) surgically daniel chico. Procedure(s) in Detail: A time-out was p erformed prior to the start of the procedure and the correct patient, proce dure, presence of consent, site, and side were confirmed with all members of the team. The skin was prepped in the usual sterile fashion with chlorhexidine . Nessacaine was administered for local anesthesia. one Vane Tailoring Teacher reflectors we re advanced into the first lesion of interest. One Vane Tailoring Teacher reflector was advanced in to the second lesion of the right axillary node u shaped clip interest in the axillary node The approach was lateral to medial. After adjustment of t he needle tip(s), reflector deployment was performed. After the procedure, a co nsole and a handheld probe were used to confirm detectable signal from the impla nted reflector(s). Post-procedure Mammography: Post-procedu re mammography was performed and reflector location(s) was confirmed. A d iagram was drawn depicting the relationship of the reflector(s) and the localized lesion(s). The diagram was uploaded in the patient's electronic [facility] record. Estimated Blood Loss: Minimal Specimen(s) Removed: No Immediate Complications: None Post-procedure diagnosis: Breast cancer Disposition: The patient was discharged from Breast Imaging to the next clinical appointment in good condition. Impression: 1. Technically successful ultrasound hazel ded Vane Tailoring Teacher reflector localization of the mass in the right breast subareolar position, 2 cm from the nipple. and right axillary node n Post procedural right mammogram was perf ormed. Chelsie SAUL US ORDERABLES US Guided Breast Non-Wire Localization Right (05/23/2022 3:21 PM CARE DIRECTOR RN) Anatomical Region Laterality Modality Breast Right Ultrasound Specimen (Source) Anatomical Collection Method Collection Time Re ceived Time Location / / Volume Laterality 05/23/2022 5:17 PM CARE DIRECTOR RN Narrative 05/23/2022 5:17 PM CARE DIRECTOR RN Clinical Indication: Patient is a 66 year old female seen for breast cancer. ULTRASOUND GUIDED VANE PREMIUM SERVICE REPRESENTATIVE PLACEMENT R IGHT Comparison:The present examination has b een compared to prior imaging studies performed at [facility] on 10/26/2021, 02/09/2022 and 04/27/2022. Technique: Targeted ultrasound was perfo rmed of the lesion(s) of interest to guide localization. Findings: Mass in the right breast subar eolar position, 2 cm from the nipple. Procedures(s): Ultrasound-Guided Vane Sc out Reflector Localization - right breast Primary Proceduralist: Dr. Marleen Gibbs Informatics Manager(s): None Consent: The consent for Vane Tailoring Teacher refl tiffanie placement was performed The presence of the signed consent form in t patient's electronic health record was confirmed prior to the procedure. [facility] consent includes a written commitment to have the reflector(s) surgically daniel chico. Procedure(s) in Detail: A time-out was p erformed prior to the start of the procedure and the correct patient, proce dure, presence of consent, site, and side were confirmed with all members of the team. The skin was prepped in the usual sterile fashion with chlorhexidine . Nessacaine was administered for local anesthesia. one Vane Tailoring Teacher reflectors were advanced into the first lesion of interest. One Vane Tailoring Teacher reflector was advanced into the second lesion of the right axillary node u shaped clip interest i n the axillary node The approach was lateral to medial. After adjustment of [facility] needle tip(s), reflector deployment was performed. After the procedure, a co nsole and a handheld probe were used to confirm detectable signal from the impla nted reflector(s). Post-procedure Mammography: Post-procedu re mammography was performed and reflector location(s) was confirmed. A d iagram was drawn depicting the relationship of the reflector(s) and the localized lesion(s). The diagram was uploaded in the patient's electronic [facility] record. Estimated Blood Loss: Minimal Specimen(s) Removed: No Immediate Complications: None Post-procedure diagnosis: Breast cancer Disposition: The patient was discharged from Breast Imaging to the next clinical appointment in good condition. Impression: 1. Technically successful ultrasound hazel ded Vane Tailoring Teacher reflector localization of the mass in the right breast subareolar position, 2 cm from the nipple. and right axillary node n Post procedural right mammogram was perf ormed. Procedure Note Marleen Gibbs MD - 05/23/2022Formatt ing of this note might be different from the original. Clinical Indication: Patient is a 66 yea r old female seen for breast cancer. ULTRASOUND GUIDED VANE PREMIUM SERVICE REPRESENTATIVE PLACEMENT R IGHT Comparison:The present examination has b een compared to prior imaging studies performed at [facility] on 10/26/2021, 02/09/2022 and 04/27/2022. Technique: Targeted ultrasound was perfo rmed of the lesion(s) of interest to guide localization. Findings: Mass in the right breast subar eolar position, 2 cm from the nipple. Procedures(s): Ultrasound-Guided Vane Sc out Reflector Localization - right breast Primary Proceduralist: Dr. Marleen Gibbs Informatics Manager(s): None Consent: The consent for Vane Tailoring Teacher refl tiffanie placement was performed The presence of the signed consent form in t patient's electronic health record was confirmed prior to the procedure. [facility] consent includes a written commitment to have the reflector(s) surgically daniel chico. Procedure(s) in Detail: A time-out was p erformed prior to the start of the procedure and the correct patient, proce dure, presence of consent, site, and side were confirmed with all members of the team. The skin was prepped in the usual sterile fashion with chlorhexidine . Nessacaine was administered for local anesthesia. one Vane Tailoring Teacher reflectors we re advanced into the first lesion of interest. One Vane Tailoring Teacher reflector was advanced in to the second lesion of the right axillary node u shaped clip interest in the axillary node The approach was lateral to medial. After adjustment of t needle tip(s), reflector deployment was performed. After the procedure, a co nsole and a handheld probe were used to confirm detectable signal from the impla nted reflector(s). Post-procedure Mammography: Post-procedu re mammography was performed and reflector location(s) was confirmed. A d iagram was drawn depicting the relationship of the reflector(s) and the localized lesion(s). The diagram was uploaded in the patient's electronic [facility] record. Estimated Blood Loss: Minimal Specimen(s) Removed: No Immediate Complications: None Post-procedure diagnosis: Breast cancer Disposition: The patient was discharged from Breast Imaging to the next clinical appointment in good condition. Impression: 1. Technically successful ultrasound hazel ded Vane Tailoring Teacher reflector localization of the mass in the right breast subareolar position, 2 cm from the nipple. and right axillary node n Post procedural right mammogram was perf ormed. Chelsie Alan-Navarrete PA IMG US ORDERABLES NM Lymphoscintigraphy Breast (05/23/2022 12:40 PM CARE DIRECTOR RN) Anatomical Region Laterality Modality Abdomen Nuclear Medicine Specimen (Source) Anatomical Collection Method Collection Time Re ceived Time Location / / Volume Laterality 05/23/2022 12:41 PM CARE DIRECTOR RN Impressions 05/23/2022 12:42 PM CARE DIRECTOR RN Drainage into right axillary and possible right subpectoral nodes Narrative 05/23/2022 12:42 PM CARE DIRECTOR RN FULL RESULT: Examination: Lymphoscintigraphy, 12:40 PM Clinical History: 66-year-old female wit h breast cancer Indication: Lymphatic mapping for sentin el lymph node localization. Comparison: None. Technique: The patient was injected with 2.7 mCi of filtered technetium-99m sulfur colloid in right breast in subareolar region. Transmission images of the chest were obtained. Findings: On images obtained approximate ly 90 minutes after injection there is visualization of activity in the right axilla. Additional focus is seen slightly superior and medial to this possibly representing subpectoral eddy site. Procedure Note Mustapha Garcia MD - 05/23/2022Format ting of this note might be different from the original. FULL RESULT: Examination: Lymphoscintigraphy, 12:40 PM Clinical History: 66-year-old female wit h breast cancer Indication: Lymphatic mapping for sentin el lymph node localization. Comparison: None. Technique: The patient was injected with 2.7 mCi of filtered technetium-99m sulfur colloid in right breast in subareolar region. Transmission images of the chest were obtained. Findings: On images obtained approximate ly 90 minutes after injection there is visualization of activity in the right axilla. Additional focus is seen slightly superior and medial to this possibly representing subpectoral eddy site. IMPRESSION: Drainage into right axillary and possibl e right subpectoral nodes Chelsie RENNER [facility] NM ORDERABLES (ABNORMAL) Mammography Digital Diagnostic Right with Jasson (04/27/2022 12:07 PM CDT) Anatomical Region Laterality Modality Breast Right Mammography Specimen (Source) Anatomical Collection Method Collection Time Re ceived Time Location / / Volume Laterality 04/27/2022 2:11 PM CDT Impressions 04/27/2022 2:11 PM CDT 1. Findings consistent with interval response. Ultrasound is scheduled to follow. BI-RADS Category 5. Known breast malignancy. Narrative 04/27/2022 2:11 PM CDT CLINICAL INDICATION: Patient is a 66 year old female and is s een for breast cancer MAMMO DIGITAL DIAGNOSTIC RIGHT W JASSON Digital Mammogram evaluated with Compute r Aided Detection (CAD). COMPARISON: The present examination has been compare d to prior imaging studies performed at an outside location on 06/05/2018, 08/07, 08/23/2020 and 09/06/2021, and at [facility] on 10/26/2021 and 02/09/2022. FINDINGS: The breast is almost entirely fatty. An irregular spiculated mass in the retr oareolar right breast 0.4 cm from the nipple measures approximately 2.7 x 1.9 x 1.8cm (previously 3.6 x 3.2 x 2.7 cm 10/26/2021). There are associated pleomo rphic calcifications within the mass and an associated coil biopsy clip. [facility] path ology review reported as IDC. There is associated nipple retraction. U shaped b iopsy clip noted in the right axilla with associated node consistent with bio psy proven metastatic carcinoma. Tomosynthesis performed in CC and MLO pr ojections. Procedure Note Genesis Pichardo DO - 04/27/2022 CLINICAL INDICATION: Patient is a 66 year old female and is s een for breast cancer MAMMO DIGITAL DIAGNOSTIC RIGHT W JASSON Digital Mammogram evaluated with Compute r Aided Detection (CAD). COMPARISON: The present examination has been compare d to prior imaging studies performed at an outside location on 06/05/2018, 08/07, 08/23/2020 and 09/06/2021, and at [facility] on 10/26/2021 and 02/09/2022. FINDINGS: The breast is almost entirely fatty. An irregular spiculated mass in the retr oareolar right breast 0.4 cm from the nipple measures approximately 2.7 x 1.9 x 1.8cm (previously 3.6 x 3.2 x 2.7 cm 10/26/2021). There are associated pleomorp hic calcifications within the mass and an associated coil biopsy clip. [facility] path ology review reported as IDC. There is associated nipple retraction. U shaped b iopsy clip noted in the right axilla with associated node consistent with bio psy proven metastatic carcinoma. Tomosynthesis performed in CC and MLO pr ojections. IMPRESSION: 1. Findings consistent with interval res ponse. Ultrasound is scheduled to follow. BI-RADS Category 5. Known breast malignancy. Chelsie RENNER IMRoni MAMMOGRAPHY ORDERABLES (ABNORMAL) US Chest for Breast Ultrasound (Add-on Only) (04/27/2022 11:20 AM CDT)Only the most recent of2 resultswithin the time period is included. Anatomical Region Laterality Modality Chest Ultrasound Specimen (Source) Anatomical Collection Method Collection Time Re ceived Time Location / / Volume Laterality 04/27/2022 2:12 PM CDT Impressions 04/27/2022 2:12 PM CDT Favorable interval response to therapy as detailed above. Recommend appropriate evaluation and aure atment of this known malignancy. BI-RADS Category 6: Known Biopsy Proven Malignancy Narrative 04/27/2022 2:12 PM CDT CLINICAL INDICATION: Patient is a 66 year old female and is s een for response FILMS COMPARED The present examination has been compare d to prior imaging studies performed at [facility] on 10/26/2021, 02/09/2022 and 04/27/2022. Images were obtained in multiple scannin g planes. Real-time sonographic imaging of the rig ht breast (including all 4 quadrants and retroareolar region) was performed. Re al time sonographic imaging of the right axilla was performed. Real-time sonogr aphic imaging of the right regional eddy basins including ultrasound of the chest /mediastinum to evaluate the axillary (level I,II,III) and internal mammary re gions was performed. The known malignancy is identified in th e central retroareolar region as an irregular, hypoechoic mass with in situ clip measuring 2.5 x 1.8 x 1.4cm (previously 2.7 x 2.0 x 1.6 cm 02/09/2022 and 3.2 x 3 x 2.7 cm 10/26/2021). This extends to the base of the nipple with n ipple retraction. There are no new suspicious sonographic findings in the r ight breast. The known metastatic axillary level 1 ly mph node is also decreased in size measuring 1.9 x 0.9 x 0.6cm (previously 2.3 x 1.7 x 0.7 cm 02/09/2022) with in situ clip. A total of 2 abnormal level 1 lymph nodes are identified. There is no additional axillary (level 2 3) or internal mammary lymphadenopathy. Procedure Note Genesis Pichardo, DO - 04/27/2022 CLINICAL INDICATION: Patient is a 66 year old female and is s een for response FILMS COMPARED The present examination has been compare d to prior imaging studies performed at [facility] on 10/26/2021, 02/09/2022 and 04/27/2022. Images were obtained in multiple scannin g planes. Real-time sonographic imaging of the rig ht breast (including all 4 quadrants and retroareolar region) was performed. Real time sonographic imaging of the right axilla was performed. Real-time sonograp hic imaging of the right regional eddy basins including ultrasound of the chest /mediastinum to evaluate the axillary (level I,II,III) and internal mammary re gions was performed. The known malignancy is identified in th e central retroareolar region as an irregular, hypoechoic mass with in situ clip measuring 2.5 x 1.8 x 1.4cm (previously 2.7 x 2.0 x 1.6 cm 02/09/2022 and 3.2 x 3 x 2.7 cm 10/26/2021). This extends to the base of the nipple with n ipple retraction. There are no new suspicious sonographic findings in the r ight breast. The known metastatic axillary level 1 ly mph node is also decreased in size measuring 1.9 x 0.9 x 0.6cm (previously 2.3 x 1.7 x 0.7 cm 02/09/2022) with in situ clip. A total of 2 abnormal level 1 lymph nodes are identified. There is no additional axillary (level 2 3) or internal mammary lymphadenopathy. IMPRESSION: Favorable interval response to therapy a s detailed above. Recommend appropriate evaluation and aure atment of this known malignancy. BI-RADS Category 6: Known Biopsy Proven Malignancy Chelsie RENNER IMRoni US ORDERABLES (ABNORMAL) US Breast Complete - Right (04/27/2022 11:20 AM CDT)Only the most recent of2 resultswithin the time period is included. Anatomical Region Laterality Modality Breast Right Ultrasound Specimen (Source) Anatomical Collection Method Collection Time Re ceived Time Location / / Volume Laterality 04/27/2022 2:12 PM CDT Impressions 04/27/2022 2:12 PM CDT Favorable interval response to therapy as detailed above. Recommend appropriate evaluation and aure atment of this known malignancy. BI-RADS Category 6: Known Biopsy Proven Malignancy Narrative 04/27/2022 2:12 PM CDT CLINICAL INDICATION: Patient is a 66 year old female and is s een for response FILMS COMPARED The present examination has been compare d to prior imaging studies performed at [facility] on 10/26/2021, 02/09/2022 and 04/27/2022. Images were obtained in multiple scannin g planes. Real-time sonographic imaging of the rig ht breast (including all 4 quadrants and retroareolar region) was performed. Re al time sonographic imaging of the right axilla was performed. Real-time sonogr aphic imaging of the right regional eddy basins including ultrasound of the chest /mediastinum to evaluate the axillary (level I,II,III) and internal mammary re gions was performed. The known malignancy is identified in th e central retroareolar region as an irregular, hypoechoic mass with in situ clip measuring 2.5 x 1.8 x 1.4cm (previously 2.7 x 2.0 x 1.6 cm 02/09/2022 and 3.2 x 3 x 2.7 cm 10/26/2021). This extends to the base of the nipple with n ipple retraction. There are no new suspicious sonographic findings in the r ight breast. The known metastatic axillary level 1 ly mph node is also decreased in size measuring 1.9 x 0.9 x 0.6cm (previously 2.3 x 1.7 x 0.7 cm 02/09/2022) with in situ clip. A total of 2 abnormal level 1 lymph nodes are identified. There is no additional axillary (level 2 3) or internal mammary lymphadenopathy. Procedure Note Genesis Pichardo, DO - 04/27/2022 CLINICAL INDICATION: Patient is a 66 year old female and is s een for response FILMS COMPARED The present examination has been compare d to prior imaging studies performed at [facility] on 10/26/2021, 02/09/2022 and 04/27/2022. Images were obtained in multiple scannin g planes. Real-time sonographic imaging of the rig ht breast (including all 4 quadrants and retroareolar region) was performed. Real time sonographic imaging of the right axilla was performed. Real-time sonograp hic imaging of the right regional eddy basins including ultrasound of the chest /mediastinum to evaluate the axillary (level I,II,III) and internal mammary re gions was performed. The known malignancy is identified in th e central retroareolar region as an irregular, hypoechoic mass with in situ clip measuring 2.5 x 1.8 x 1.4cm (previously 2.7 x 2.0 x 1.6 cm 02/09/2022 and 3.2 x 3 x 2.7 cm 10/26/2021). This extends to the base of the nipple with n ipple retraction. There are no new suspicious sonographic findings in the r ight breast. The known metastatic axillary level 1 ly mph node is also decreased in size measuring 1.9 x 0.9 x 0.6cm (previously 2.3 x 1.7 x 0.7 cm 02/09/2022) with in situ clip. A total of 2 abnormal level 1 lymph nodes are identified. There is no additional axillary (level 2 3) or internal mammary lymphadenopathy. IMPRESSION: Favorable interval response to therapy a s detailed above. Recommend appropriate evaluation and aure atment of this known malignancy. BI-RADS Category 6: Known Biopsy Proven Malignancy Chelsie RENNER IMG US ORDERABLES (ABNORMAL) Urinalysis with Microscopic (03/27/2022 1:41 PM CDT) athologist Signature UA WBC 0-2 0 - 2 /HPF [place] Comment: All components of UA Microscopi c [facility], [address] [place] [address],[facility] and, [place] [id number] UA RBC NOT SEEN 0 - 2 /HPF [place] Comment: As part of the UA Microscopic E xam performed at [facility], [address] [place] [address], [place] [address] UA Mucous TRACE Not Seen-Trace /HPF [place] Comment: As part of the UA Microscopic E xam performed at [facility], [address] [place] [address], [place] [address] UA Bacteria NOT SEEN NOT SEEN /HPF [place] Comment: As part of the UA Microscopic E xam performed at [facility], [address] [place] [address], [place] [address] UA Squam Epi 1+ (A) None-Occasional /HPF [place] Comment: As part of the UA Microscopic E xam performed at [facility], [address] [place] [address], [place] [address] UA Yeast OCC (A) NOT SEEN /HPF [place] Comment: As part of the UA Microscopic E xam performed at [facility], [address] [place] [address] Specimen Anatomical Collection Method Collection Time Receive d Time (Source) Location / / Volume Laterality Urine 03/27/2022 1:41 PM 2 1:44 CDT PM CDT Narrative [place] - 03/27/2022 2:07 PM CDT Some reporting parameters within the Urinalysis test have changed due to the implementation of new instrumentation in the [facility] [place], allowing greater sensitivity of measurement. Urinalysis results rep orted by the [facility] using existing instrumentation, as well as Urinalysis t esting performed manually or by backup methodology at the [facility] will remain relatively unchanged. New reporting parameters and units will now be reported for all campuses. Danisha Arias MD URINE ORDERABLES Performing Organization Address City/State/ZIP Code Phon e Number JAGDISH JANG MD [facility], [address] Bilirubin, total (03/27/2022 12:27 PM CDT)Only the most recent of3 resultswithin the time period is included. athologist Signature Bili Total 0.3 <=1.2 mg/dL [place] Comment: Indocyanine Green (ICG) may cause falsel y elevated bilirubin results. Total and direct bilirubin must not be measured from samples containing indocyanine green. False elevation of total bilirubin can b e seen in patients with IgG concentrations above 28 g/L. Testing performed at [facility], [address] [place] [address], [place] [address] Specimen Anatomical Collection Method Collection Time Receive d Time (Source) Location / / Volume Laterality Blood 03/27/2022 12:27 03/27/2022 PM CDT 12:27 PM CDT Risa RENNER LAB BLOOD ORDERABLES Performing Organization Address City/State/[place] [address] [place] [address] XR Humerus 2 Views Minimum Right (02/20/2022 [...] with the final report. Risa RENNER IMG DIAGNOSTIC IMAGING ORDER BUZZ US Arm [...] in t he right upper extremity. Risa RENNER IMG US ORDERABLES after 12/14/2021 Insurance Payer Benefit Plan / Subscriber ID Effective Dates Phone Addre ss Type Group HUMANA HUMANA CHOICE [id number] 2021-Presen [address] [address] Medicare [place] [address] Advance Directives Code Status Date Activated Date Inactivated Comments Full Code 05/24/2022 10:24 PM 05/25/2022 3:49 PM Care Teams Member Service Specialist Relationship Specialty Start Date End Date Kasi Triplett MD PCP - External Referring Cardiology 10/12/[address] [phone] MARIAELENA Fermin - External Primary Internal Medicine 10/12/21 MD Larissa Care Provider [address] [place] [id number] Madeleine Plaza PCP - General Breast Surgery 10/20/21 MD Teresa [address] [place] [address]
--- OUTSIDE RECORDS SUMMARY | 2022-12-14 18:57 | XMS REPORT | Continuity of Care Document ---
:1955 Author Organization [facility] t Address [address] [place] [address] [address] [place] [address] Care Team Providers Name Role Phone Larissa Silva MD Primary Care Physician [phone] SYSTEM, PROVIDER NOT IN Attending Clinician Unavailable John Triplett Attending Clinician Unavailable UBALDO SOLITARIO Attending Clinician Unavailable UBALDO SOLITARIO Attending Clinician Unavailable BELIA ARBOLEDA Attending Clinician Unavailable Jose Julian MD Attending Clinician PATRICIA DE LA VGEA Attending Clinician Unavailable Jackie Deal RN Attending Clinician Unavailable Danisha Arias MD Attending Clinician Risa [place] Attending Clinician DANISHA ARIAS Attending Clinician Unavailable RISA AGUILERA Attending Clinician Unavailable Patricia Kapadia Attending Clinician Doctor Unassigned, [place] Attending Clinician Unavailable Gayatri Attending Clinician Unavailable JOHN TRIPLETT Attending Clinician Unavailable JOSE JULIAN Attending Clinician Unavailable KERRY PLAZA Attending Clinician Unavailable Kerry Plaza MD Attending Clinician [phone] Attending Clinician Unavailable DEREK DURON HEARING AID ASSISTANT-C Attending Clinician Unavailable Maylin RENNER, Lisa Attending Clinician [phone] Skye Ryder RN Attending Clinician LISA CARLISLE Attending Clinician Unavailable Jeremias CALVERT, Charmaine Attending Clinician Unavailable Anastasia CLAY, Dianna Attending Clinician DIANNA CHAPPELL Attending Clinician Unavailable YOAV VALDEZ Attending Clinician Unavailable José Miguel CLAY, Yoav Dow Attending Clinician Renato CLAY, Redd Dyson Attending Clinician [phone] Dolores CALVERT, Parul Burns Attending Clinician Unavailable Pietro Ren RN Attending Clinician Unavailable Harini Nagel RN Attending Clinician Unavailable Tomasz Stockton APRN Attending Clinician Jackeline Andrew RN Attending Clinician Alba Reyes MD Attending Clinician Melissa Geller CRNA Attending Clinician Erika Stephenson Attending Clinician Kyleigh Arellano APRN Attending Clinician Princess Christianson Attending Clinician Dalia Tyler RN Attending Clinician Antionette Norman MD Attending Clinician Gladis Whitmore MA Attending Clinician Unavailable Adam Melendez MD Attending Clinician Sebas Felipe RN Attending Clinician Unavailable Korin Garzon RN Attending Clinician Unavailable Kasia Ivory MD Attending Clinician Samanta Rolle RN Attending Clinician Unavailable Karlie Link RN Attending Clinician Unavailable Becky Macedo RN Attending Clinician Unavailable Carla VO, Gil Attending Clinician GIL AGUIRRE Attending Clinician Unavailable Ivis Aguirre RN Attending Clinician Unavailable Loi CALVERTAdelaide Attending Clinician Unavailable Merle CALVERT, Gunjan Howard Attending Clinician Quinten CALVERT, Shahnaz Chavez Attending Clinician Era CALVERT, Chey Downing Attending Clinician Suri CALVERT, Gagandeep S Attending Clinician Unavailable Aaron Perez Attending Clinician Dumont RN, Cha Attending Clinician Max Woodward MD Attending Clinician Logan Palomo APN Attending Clinician Edelmira [place] Attending Clinician Carol Ann Almanza MA Attending Clinician Unavailable Nazia Webb Attending Clinician Sylvester Dykes Attending Clinician Tammy Daily I Attending Clinician Unavailable Misty Cardoza MD Attending Clinician MISTY CARDOZA Attending Clinician Unavailable Toñito Guevara MD Attending Clinician Michael Tirado MD Attending Clinician YOUSUF SALCIDO Attending Clinician Unavailable TIFFANY LAMBERT Attending Clinician Unavailable Tiffany Lambert MD Attending Clinician , [facility] Surg Spec Procedure Attending Clinician Unavailable DUNCAN HOLLY Attending Clinician Unavailable Duncan Tolentino Attending Clinician Radiology Attending Clinician Unavailable RADIOLOGY Attending Clinician Unavailable Martha Mckoy MA Attending Clinician Unavailable Lab, [facility] Attending Clinician Unavailable CARLA SELLERS Attending Clinician Unavailable RADHA MENDOZA Attending Clinician Unavailable ABBI SILVA Attending Clinician Unavailable JAYME DAY Attending Clinician Unavailable ANJUM CASTRO Attending Clinician Unavailable Tomasz Tafoya Attending Clinician Unavailable SENIA BUCHANAN Attending Clinician Unavailable Gayatri Admitting Clinician Unavailable REFINETTI, JORGE MOORE Admitting Clinician Unavailable TIFFANY LAMBERT Admitting Clinician Unavailable JAYME DAY Admitting Clinician Unavailable ANJUM CASTRO Admitting Clinician Unavailable Tomasz Tafoya Admitting Clinician Unavailable Payers Payer Name Policy Type Policy Number Effective Date Expiration Date Ricky velez HU[employer]NA CHOICE [id number] 2021 00:00:00 [employer]NA (MEDICARE [id number] REPLACEMENT/ADVANT AGE - PPO) [place]IC[place] B-[place]: [id number] [employer] 00:00:00 WELLMED/AARP [id number] 2020 MEDICARE ADVANTAGE 00:00:00 Problems Condition Condition Condition Status Onset Resolution Last Treating Co mments Source Name Details Category Date Date Treatment Clinician Date Obesity Obesity Disease Active Univers (BMI (BMI 3-13 ity of 30-39.9) 30-39.9) 00:00: [place] 00 Medical Branch Hyperlipid Hyperlipid Disease Active U nivers emia, emia, 3-13 ity of unspecifie [place]ifie [place] Medical hyperlipid hyperlipid Br anch emia type emia type Hypertensi Hypertensi Disease Active 2021-06 U nivcolton on on 07-25 ity of 00:00: [place] 00 MD [facility] Hyperlipid Hyperlipid Disease Active 2021-06 U micaela emia emia 07-25 ity of 00:00: [place] 00 MD [facility] Coronary Coronary Disease Active 2021-06 Unive rs artery artery 07-25 ity of disease disease 00:00: [place] due to due to 00 calcified calcified Oli rso coronary coronary n lesion lesion Cancer Center Bradycardi Bradycardi Disease Active 2021-06 U nivers a a - ity of 00:00: [place] 00 MD [facility] Estrogen Estrogen Disease Active Unive rs receptor receptor 8-24 ity of positive positive 00:00: [place] status status 00 (ER+) (ER+) [facility] Neoplasm Neoplasm Disease Active Unive rs of breast of breast 8-24 ity of regional regional 00:00: [place] lymph node lymph node 00 MD staging staging Anderso category category n N1: N1: Cancer Metastasis Metastasis Ce nter to movable to movable ipsilatera ipsilatera l level I, l level I, II II axillary axillary lymph lymph node(s) node(s) 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 Hands, knees, hips; left leg is more symptomat ic Hypermobil Hypermobil Disease Active U nivers ity ity ity of syndrome syndrome [place] [facility] Essential Essential Disease Active Overview: Univers hypertensi hypertensi Formattin ity of on on g of this [place] note Medical might be Branch different from the original. 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 Unspecifie Unspecifie Disease Active U nivers d d ity of intrapelvi intrapelvi [place] c Medical protrusion protrusion Br anch of of acetabulum acetabulum , site , site unspecifie unspecifie d d Allergies, Adverse Reactions, Alerts Allergy Allergy Status Severity Reaction(s) Onset Inactive Treating Comm ents Source Name Type Date Date Clinician PACLITAX DRUG Active Other 2021-0 MD EL [...] EL INGREDI 5-24 Anderso 00:00: n 00 Paclitax Propensi Active Other (See 0 CO: Un michelle el ty to Comments) -24 coughing ity o f adverse 00:00: [place], [place] reaction 00 feeling MD s tightenin Anderso g of n breath & Cancer feeling Center hot. Infusion stopped. Diphenhyd ramine 50mg, famotidin e 40mg, & hydrocort isone 100mg given. After resolutio n of symptoms infusion rechallen ged @ 1/2 rate and finished infusion at full rate w/o further complicat ions LIDOCAIN DRUG Active 2021-0 MD E INGREDI 10-27 [place] 00:00: n 00 LIDOCAIN DRUG Active 2-0 MD E INGREDI 10-27 [place] 00:00: n 00 LIDOCAIN DRUG Active 2021-0 MD E INGREDI 10-27 Anderso 00:00: n [...] LIDOCAIN DRUG Active 2022-0 MD E INGREDI 5- Anderso 00:00: n 00 LIDOCAIN DRUG Active [...] E INGREDI 5-06 [place] 00:00: n 00 Lidocain Propensi Active 2022-0 Makes Univer s e ty to 10-27 hands ity of adverse 00:00: itch few [place] reaction 00 days MD howard after [facility] injection n Cancer Center No Known DA Active U SJm Drug 3-18 Allergie 00:00: s 00 NO KNOWN Drug Active Univers ALLERGIE Class ity of S [place] [facility] [place] Family History Family Member Diagnosis Comments Start Date Stop Date Source Maternal cousin No Known Problems Un [facility]vers[facility] [place] [facility] Natural sister Cervical cancer Unive rsity of [place] [facility] Natural sister Colon cancer Universi ty of [facility] Social History Social Habit Start Date Stop Date Quantity Comments Source Exposure to 2022-11-10 2022-11-20 Not sure [facility] SARS-CoV-2 00:00:00 10:57:00 [facility] faust (event[facility] Alcohol intake 2022-05-30 2022-05-30 Lifetime University of 00:00:00 00:00:00 non-drinker [facility]e feliciano (finding) [facility] Tobacco use and 2021-12-26 2021-12-26 Smokeless tobacco Un iversity of exposure 00:00:00 00:00:00 non-user Julee faust [facility] Sex [birth year] Universit y of 00:00:00 00:00:00 Julee faust [facility] Smoking Status Start Date Stop Date Source Never Smoker [facility] Medications Ordered Filled Start Stop Current Ordering Indication Dosage Frequency Signature Comments Components Source Medication Medication Date Date Medication? Clinician (SIG) Name Name omega-3 Yes 1000mg Take 1 Univer s fatty 5-30 capsule ity of acids/fish 11:42: (1,000 mg) [place] oil (fish 54 by mouth. oil-omega-3 Anderso fatty n acids) Cancer 300-1,000 Center mg capsule phenylephri Yes 10mg Take 1 Univ ers ne (SUDAFED 5-30 tablet (10 it y of PE) 10 MG 11:42: mg) by Julee tab 54 mouth every 4 Anderso (four) n hours as Cancer needed for Center congestion . aspirin 81 Yes 81mg Chew 1 Unive rs mg chewable 5-30 tablet (81 it y of tablet 11:28: mg) daily. Julee 59 MD [facility] cholecalcif Yes 1{capsu Take 1 U nivers adeel, 5-30 le} capsule by ity of vitamin D3, 11:28: mouth [place] 100 mcg 59 daily. (4,000 Anderso unit) staci [facility] losartan-hy Yes 1{tbl} Take 1 Un michelle drochloroth 5-30 tablet by ity of iazide 11:28: mouth [place] (HYZAAR) 59 daily. 100-25 mg Anderso per tablet [facility] cyanocobala Yes Take by Uni vers min, 5-30 mouth. ity of vitamin 11:28: [place] B-12, 59 (VITAMIN Anderso B-12 ORAL) [facility] ACETAMINOPH Yes 1-2 pills U nivers EN 500 MG 5-23 a day ity of ORAL TAB 15:46: [place] 45 Medical Branch GLUCOSAMINE 0 Yes 1-2 pills U nivers &CHONDROIT- 5-23 a day ity of MV-MIN3 15:46: [place] [id number]- [id number] Medical 0.5 MG ORAL Branch TAB omega-3 Yes 1000mg Take 1 Univer s fatty acids 5-23 capsule by it y of capsule 15:46: mouth in [place] 45 the Medical morning. Branch ACETAMINOPH 0 Yes 1-2 pills U nivers EN 500 MG 5-23 a day ity of ORAL TAB 15:46: [place] 45 Medical Branch GLUCOSAMINE 0 Yes 1-2 pills U nivers &CHONDROIT- 5-23 a day ity of MV-MIN3 15:46: [id number]- [id number] Medical 0.5 MG ORAL Branch TAB omega-3 Yes 1000mg Take 1 Univer s fatty acids 5-23 capsule by it y of capsule 15:46: mouth in [place] 45 the Medical morning. Branch ACETAMINOPH 0 Yes 1-2 pills U nivers EN 500 MG 5-23 a day ity of ORAL TAB 15:46: [place] [id number] Medical Branch GLUCOSAMINE 0 Yes 1-2 pills U nivers &CHONDROIT- 5-23 a day ity of MV-MIN3 15:46: [place] [id number] Medical 0.5 MG ORAL Branch TAB omega-3 2022-0 Yes 1000mg Take 1 Univer s fatty acids 5-23 capsule by it y of capsule 15:46: mouth in [place] 45 the Medical morning. Branch ACETAMINOPH 0 Yes 1-2 pills U nivers EN 500 MG 5-23 a day ity of ORAL TAB 15:46: [place] 45 Medical Branch GLUCOSAMINE 2022-0 Yes 1-2 pills U nivers &CHONDROIT- 5-23 a day ity of MV-MIN3 15:46: [place] [id number] Medical 0.5 MG ORAL Branch TAB omega-3 0 Yes 1000mg Take 1 Univer s fatty acids 5-23 capsule by it y of capsule 15:46: mouth in [place] 45 the Medical morning. Branch ACETAMINOPH 0 Yes 1-2 pills U nivers EN 500 MG 5-23 a day ity of ORAL TAB 15:46: [place] 45 Medical Branch GLUCOSAMINE 2022-0 Yes 1-2 pills U nivers &CHONDROIT- 5-23 a day ity of MV-MIN3 15:46: [place] [id number] Medical 0.5 MG ORAL Branch TAB omega-3 0 Yes 1000mg Take 1 Univer s fatty acids 5-23 capsule by it y of capsule 15:46: mouth in [place] 45 the Medical morning. Branch losartan-hy 2022-0 2022- No 1{tbl} Take 1 U nivers drochloroth 5-16 05-16 tablet by it y of iazide 16:21: 00:00 mouth in [place] 100-25 mg 57 :00 the Medical per tablet morning. [facility] h losartan-hy 2022-0 Yes [id number] 1{tbl} Take 1 Univers drochloroth 5-16 tablet by ity of iazide 00:00: mouth in [place] 100-25 mg 00 the Medical per tablet morning. [facility] h atorvastati 2022-0 Yes [id number] 20mg Take 1 Univers n 20 mg 5-16 tablet by ity of tablet 00:00: mouth in [place] 00 the Medical morning. Branch losartan-hy 2022-0 Yes [id number] 1{tbl} Take 1 Univers drochloroth 5-16 tablet by ity of iazide 00:00: mouth in [place] 100-25 mg 00 the Medical per tablet morning. [facility] atorvastati 2022-0 Yes [id number] 20mg Take 1 Univers n 20 mg 5-16 tablet by ity of tablet 00:00: mouth in [place] 00 the Medical morning. Branch losartan-hy 2022-0 Yes [id number] 1{tbl} Take 1 Univers drochloroth 5-16 tablet by ity of iazide 00:00: mouth in [place] 100-25 mg 00 the Medical per tablet morning. [facility] atorvastati 2022-0 Yes [id number] 20mg Take 1 Univers n 20 mg 5-16 tablet by ity of tablet 00:00: mouth in [place] 00 the Medical morning. [place] losartan-hy 2022-0 Yes [id number] 1{tbl} Take 1 Univers drochloroth 5-16 tablet by ity of iazide 00:00: mouth in [place] 100-25 mg 00 the Medical per tablet morning. [facility] atorvastati 2022-0 Yes [id number] 20mg Take 1 Univers n 20 mg 5-16 tablet by ity of tablet 00:00: mouth in [place] 00 the Medical morning. [place] losartan-hy 2022-0 Yes [id number] 1{tbl} Take 1 Univers drochloroth 5-16 tablet by ity of iazide 00:00: mouth in [place] 100-25 mg 00 the Medical per tablet morning. [facility] atorvastati 2022-0 Yes [id number] 20mg Take 1 Univers n 20 mg 5-16 tablet by ity of tablet 00:00: mouth in [place] 00 the Medical morning. [place] losartan-hy 2022-0 Yes [id number] 1{tbl} Take 1 Univers drochloroth 5-16 tablet by ity of iazide 00:00: mouth in [place] 100-25 mg 00 the Medical per tablet morning. [facility] atorvastati 2022-0 Yes [id number] 20mg Take 1 Univers n 20 mg 5-16 tablet by ity of tablet 00:00: mouth in [place] 00 the Medical morning. Branch losartan-hy 2022-0 Yes [id number] 1{tbl} Take 1 Univers drochloroth 5-16 tablet by ity of iazide 00:00: mouth in [place] 100-25 mg 00 the Medical per tablet morning. [facility] atorvastati Yes [id number] 20mg Take 1 Univers n 20 mg 5-16 tablet by ity of tablet 00:00: mouth in [place] 00 the Medical morning. [place] atorvastati Yes [id number] 20mg Take 1 Univers n 20 mg 5-06 tablet by ity of tablet 00:00: mouth in [place] 00 the Medical morning. [place] atorvastati Yes [id number] 20mg Take 1 Univers n 20 mg 5-06 tablet by ity of tablet 00:00: mouth in [place] 00 the Medical morning. [place] atorvastati 2022- No [id number] 20mg Take 1 Univers n 20 mg 5-06 05-16 tablet by ity of tablet 00:00: 00:00 mouth in [place] 00 :00 the Medical morning. [place] abemaciclib Yes Infiltratin Take 1 Univers (Verzenio) 5-03 g ductal tablet ity of 100 mg 00:00: carcinoma [place]100 mg[place] tablet 00 of central by mouth MD portion of twice [place] right daily. n [facility] abemaciclib Yes Infiltratin 100mg Take 1 Univers (Verzenio) 5-02 g ductal tablet ity of 100 mg 00:00: [place] (100 mg) [place] tablet 00 of central by mouth MD portion of twice Anderso right daily. [facility] abemaciclib 2022- No Infiltratin 150mg Take 1 Univers (Verzenio) 3-27 05-01 g ductal tablet by ity of 150 mg 00:00: 00:00 carcinoma [place] tablet 00 :00 of central twice MD portion of daily. Anders[place] right n [facility] fluticasone Yes 50ug Inhale 1 Un michelle propionate 3-22 spray (50 ity of (FLONASE) 00:00: mcg) into [place] as 50 00 each MD mcg/spray nostril Anderso nasal spray daily. [facility] losartan-hy Yes 1{tbl} Take 1 Un michelle drochloroth 3-13 tablet by ity of iazide 15:19: mouth in [place] 100-25 mg 40 the Medical per tablet morning. [facility] ASPIRIN 81 2023-0 Yes 1 PO daily U nivers MG ORAL 3-13 ity of CHEW 15:19: [address] cholecalcif 2022-0 Yes 1{capsu Take 1 U nivers adeel, 3-13 le} capsule by ity of vitamin D3, 15:19: mouth [place] 100 mcg 40 daily. Medical (,000 Branch unit) Cap ASPIRIN 81 2022-0 Yes 1 PO daily U nivers MG ORAL 3-13 ity of CHEW 15:19: [address] cholecalcif 2022-0 Yes 1{capsu Take 1 U nivers adeel, 3-13 le} capsule by ity of vitamin D3, 15:19: mouth [place] 100 mcg 40 daily. Medical (,000 Branch unit) Cap ASPIRIN 81 2022-0 Yes 1 PO daily U nivers MG ORAL 3-13 ity of CHEW 15:19: [address] cholecalcif 2022-0 Yes 1{capsu Take 1 U nivers adeel, 3-13 le} capsule by ity of vitamin D3, 15:19: mouth [place] 100 mcg 40 daily. Medical (,000 Branch unit) Cap ASPIRIN 81 2022-0 Yes 1 PO daily U nivers MG ORAL 3-13 ity of CHEW 15:19: [address] cholecalcif 2022-0 Yes 1{capsu Take 1 U nivers adeel, 3-13 le} capsule by ity of vitamin D3, 15:19: mouth [place] 100 mcg 40 daily. Medical (,000 Branch unit) Cap ASPIRIN 81 2022-0 Yes 1 PO daily U nivers MG ORAL 3-13 ity of CHEW 15:19: [address] cholecalcif 2022-0 Yes 1{capsu Take 1 U nivers adeel, 3-13 le} capsule by ity of vitamin D3, 15:19: mouth [place] 100 mcg 40 daily. Medical (,000 Branch unit) Cap ASPIRIN 81 2022-0 Yes 1 PO daily U nivers MG ORAL 3-13 ity of CHEW 15:19: [address] cholecalcif 2022-0 Yes 1{capsu Take 1 U nivers adeel, 3-13 le} capsule by ity of vitamin D3, 15:19: mouth [place] 100 mcg 40 daily. Medical (,000 Branch unit) Cap ASPIRIN 81 2022-0 Yes 1 PO daily U nivers MG ORAL 3-13 ity of CHEW 15:19: [address] cholecalcif 2022-0 Yes 1{capsu Take 1 U nivers adeel, 3-13 le} capsule by ity of vitamin D3, 15:19: mouth [place] 100 mcg 40 daily. Medical (4,000 Branch unit) Cap ASPIRIN 81 2022-0 Yes 1 PO daily U nivers MG ORAL 3-13 ity of CHEW 15:19: [address] cholecalcif 0 Yes 1{capsu Take 1 U nivers adeel, 3-13 le} capsule by ity of vitamin D3, 15:19: mouth [place] 100 mcg 40 daily. Medical (4,000 Branch unit) Cap ASPIRIN 81 2022-0 Yes 1 PO daily U nivers MG ORAL 3-13 ity of CHEW 15:19: [address] cholecalcif 0 Yes 1{capsu Take 1 U nivers adeel, 3-13 le} capsule by ity of vitamin D3, 15:19: mouth [place] 100 mcg 40 daily. Medical (4,000 Branch unit) Cap losartan-hy 2022-0 Yes 1{tbl} Take 1 Un michelle drochloroth 3-13 tablet by ity of iazide 15:19: mouth in [place] 100-25 mg 40 the Medical per tablet morning. Branc h ASPIRIN 81 2022-0 Yes 1 PO daily U nivers MG ORAL 3-13 ity of CHEW 15:19: [address] cholecalcif 0 Yes 1{capsu Take 1 U nivers adeel, 3-13 le} capsule by ity of vitamin D3, 15:19: mouth [place] 100 mcg 40 daily. Medical (4,000 Branch unit) Cap losartan-hy 2022-0 Yes 1{tbl} Take 1 Un michelle drochloroth 3-13 tablet by ity of iazide 15:19: mouth in [place] 100-25 mg 40 the Medical per tablet morning. Branc h ASPIRIN 81 2022-0 Yes 1 PO daily U nivers MG ORAL 3-13 ity of CHEW 15:19: [address] cholecalcif 0 Yes 1{capsu Take 1 U nivers adeel, 3-13 le} capsule by ity of vitamin D3, 15:19: mouth [place] 100 mcg 40 daily. Medical (4,000 Branch unit) Cap losartan-hy 2022-0 Yes 1{tbl} Take 1 Un michelle drochloroth 3-13 tablet by ity of iazide 15:19: mouth in [place] 100-25 mg 40 the Medical per tablet morning. Branc h ASPIRIN 81 2022-0 Yes 1 PO daily U nivers MG ORAL 3-13 ity of CHEW 15:19: [place] 40 [facility] Branch cholecalcif 0 Yes 1{capsu Take 1 U nivers adeel, 3-13 le} capsule by ity of vitamin D3, 15:19: mouth [place] 100 mcg 40 daily. Medical (4,000 Branch unit) Cap losartan-hy Yes 1{tbl} Take 1 Un michelle drochloroth 3-13 tablet by ity of iazide 15:19: mouth in [place] 100-25 mg 40 the Medical per tablet morning. Branc h ASPIRIN 81 2022-0 Yes 1 PO daily U nivers MG ORAL 3-13 ity of CHEW 15:19: [place] 40 [facility] Branch cholecalcif 0 Yes 1{capsu Take 1 U nivers adeel, 3-13 le} capsule by ity of vitamin D3, 15:19: mouth [place] 100 mcg 40 daily. Medical (4,000 Branch unit) Cap losartan-hy Yes 1{tbl} Take 1 Un michelle drochloroth 3-13 tablet by ity of iazide 15:19: mouth in [place] 100-25 mg 40 the Medical per tablet morning. Branc h ASPIRIN 81 2022-0 Yes 1 PO daily U nivers MG ORAL 3-13 ity of CHEW 15:19: [place] 40 [facility] Branch cholecalcif 0 Yes 1{capsu Take 1 U nivers adeel, 3-13 le} capsule by ity of vitamin D3, 15:19: mouth [place] 100 mcg 40 daily. Medical (4,000 Branch unit) Cap atorvastati 2022-0 Yes [id number] 20mg Take 1 Univers n 20 mg 2-03 tablet by ity of tablet 00:00: mouth in [place] 00 the Medical morning. Branch atorvastati 0 Yes [id number] 20mg Take 1 Univers n 20 mg 2-03 tablet by ity of tablet 00:00: mouth in [place] 00 the Medical morning. Branch atorvastati Yes [id number] 20mg Take 1 Univers n 20 mg 2-03 tablet by ity of tablet 00:00: mouth in [place] 00 the Medical morning. Branch atorvastati Yes [id number] 20mg Take 1 Univers n 20 mg 2-03 tablet by ity of tablet 00:00: mouth in [place] 00 the Medical morning. Branch atorvastati Yes [id number] 20mg Take 1 Univers n 20 mg 2-03 tablet by ity of tablet 00:00: mouth in [place] 00 the Medical morning. Branch atorvastati 2022- No [id number] 20mg Take 1 Univers n 20 mg 2-03 05-06 tablet by ity of tablet 00:00: 00:00 mouth in [place] 00 :00 the Medical morning. Branch atorvastati 2022- No [id number] 20mg Take 1 Univers n 20 mg 2-03 05-06 tablet by ity of tablet 00:00: 00:00 mouth in [place] 00 :00 the Medical morning. Branch atorvastati 2022- No [id number] 20mg Take 1 Univers n 20 mg 2-03 05-06 tablet by ity of tablet 00:00: 00:00 mouth in [place] 00 :00 the Medical morning. [place] letrozole Yes Infiltratin 2.5mg Take 1 Univers (Femara) 1-30 g ductal tablet ity o f 2.5 mg 00:00: [place]2.5 mg) [place] tablet 00 of central by mouth portion of daily. [place] n [facility] breast Center gabapentin 2021-06 Yes Infiltratin 300mg Take 1 Univers (NEURONTIN) 2-28 g ductal capsule i ty of 300 mg 00:00: [place]300 mg) [place] capsule 00 of central by mouth portion of twice [place]col[place]o daily. n [facility] breast [place] acetaminoph 2021-06- No Take by Un michelle en 07-26 mouth as ity of (TYLENOL) 13:44: 00:[place] 500 mg 35 :00 tablet Y[facility]elin [facility] acetaminoph 2021-06 Yes Neoplasm of 650mg Take 2 Univers en 2- breast tablets ity of (TylenoL) 00:00: regional (650 mg) [place] 325 mg 00 lymph node by mouth MD tablet staging every 6 Anderso category (six) n N1: hours as Cancer Metastasis needed for [facility] to movable mild pain ipsilateral or level I, II moderate axillary pain. lymph node(s) traMADol 2021-06 Yes Neoplasm of 50mg Take 1 [facility] (Ultram) 50 07-25 breast tablet (50 ity of mg tablet 00:00: regional mg) by [place] 00 lymph node mouth MD staging every 6 Anderso category (six) n N1: hours as Cancer Metastasis needed for [facility] ter to movable severe ipsilateral pain. level I, II axillary lymph node(s) ibuprofen 2021-06- No Neoplasm of 800mg Take 1 [facility] (ADVIL,MOTR 07-25 breast tablet ity of IN) 800 mg 00:00: 00:00 regional (800 mg) [place] tablet 00 :00 lymph node by mouth MD staging every 8 Anderso category (eight) n N1: hours as Cancer Metastasis needed for [facility]arr[facility] ter to movable moderate ipsilateral pain or level I, II mild pain. axillary lymph node(s) nystatin 2021-06- No Nayeli HERNANDEZ s (MYCOSTATIN 0-14 05-30 HOLD, THEN i ty of ) 100,000 00:00: 00:00 SWALLOW 6 [place] units/mL 00 :00 ML 4 TIMES MD suspension A DAY FOR [place] r[place] 10 DAYS n [facility] Center gabapentin 2021-06- No Infiltratin 300mg Take 1 [facility] (NEURONTIN) 0-04 12-28 g ductal capsule ity of 300 mg 00:00: 00:00 carcinoma (300 mg) [place] capsule 00 :00 of central by [facility] right bed[facility]. n female Cancer breast Center cefdinir 2021- No 1{capsu Take 1 Uni vers (OMNICEF) 930 11-30 le} capsule by ity of 300 mg 00:00: 00:00 mouth [place] capsule 00 :00 twice MD daily. [facility] aspirin 81 Yes 81mg Chew 81 mg U nivers mg chewable 9-13 daily. ity of tablet 13:35: [place] 41 MD [place] n [facility] omega-3 Yes 1000mg Take 1,000 Un michelle fatty 9-13 mg by ity of acids/fish 13:35: mouth. [place] oil (fish 41 oil-omega-3 Anderso fatty n acids) Cancer 300-1,000 Center mg capsule cholecalcif Yes 1{capsu Take 1 U nivers adeel, 9-13 le} capsule by ity of vitamin D3, 13:35: mouth [place] 100 mcg 41 daily. (4,000 Anderso unit) staci n [facility] losartan-hy Yes 1{tbl} Take 1 Un michelle drochloroth 9-13 tablet by ity of iazide 13:35: mouth [place] (HYZAAR) 41 daily. 100-25 mg Anderso per tablet n [facility] acetaminoph Yes Take by Uni vers en 9-13 mouth as ity of (TYLENOL) 13:35: needed. [place] 500 mg 41 MD tablet Anderso n [facility] cyanocobala Yes Take by Uni vers min, 9-13 mouth. ity of vitamin 13:35: [place] B-12, 41 (VITAMIN Anderso B-12 ORAL) [facility] ondansetron Yes Infiltratin 8mg Take 1 Univers [...] days after chemothera py then, PRN. prochlorper 2021-0 Yes Infiltratin 10mg Take 1 [facility] azine 8-21 g duct tablet (10 ity of (COMPAZINE) 00:00: carcinoma mg) by [place] 10 mg 00 of right mouth MD tablet female every 6 Anderso breast (six) n hours as Cancer needed for Center nausea or vomiting (breakthro ugh). traMADol 2021-0 Yes Infiltratin 50mg Take 1 [facility] (Ultram) 50 8-21 g duct tablet (50 ity of mg tablet 00:00: carcinoma mg) by [place] 00 of right mouth MD female every 6 Anderso breast (six) n hours as Cancer needed for Center moderate pain (headache) . ondansetron 0 Yes Infiltratin 8mg Take 1 [facility] (ZOFRAN) 8 8-21 g duct tablet (8 it y of mg tablet 00:00: carcinoma mg) by [place] 00 of right mouth MD female every 12 Anderso breast (twelve) n hours as Cancer needed for Center nausea or vomiting. Take scheduled for three days after chemothera py then, PRN. prochlorper 2021-0 Yes Infiltratin 10mg Take 1 [facility] azine 8-21 g duct tablet (10 ity of (COMPAZINE) 00:00: carcinoma mg) by [place] 10 mg 00 of right mouth MD tablet female every 6 Anderso breast (six) n hours as Cancer needed for Center nausea or vomiting (breakthro ugh). traMADol 0 2021- No Infiltratin 50mg Take 1 [facility] (Ultram) 50 8-21 11-30 g duct tablet (50 ity of mg tablet 00:00: 00:00 carcinoma mg) by [place] 00 :00 of right mouth MD female every 6 Anderso breast (six) n hours as Cancer needed for Center moderate pain (headache) . aspirin 81 2021-0 Yes 81mg Chew 81 mg U nivers mg chewable 6-14 daily. ity of tablet 11:33: [place] 50 MD [facility] omega-3 2021-0 Yes 1000mg Take 1,000 Un michelle fatty 6-14 mg by ity of acids/fish 11:33: mouth. [place] oil (fish 50 MD oil-omega-3 Anderso fatty n acids) Cancer 300-1,000 Center mg capsule cholecalcif Yes 1{capsu Take 1 U nivers adeel, 6-14 le} capsule by ity of vitamin D3, 11:33: mouth [place] 100 mcg 50 daily. (4,000 Anderso unit) staci n [facility] losartan-hy Yes 1{tbl} Take 1 Un michelle drochloroth 6-14 tablet by ity of iazide 11:33: mouth [place] (HYZAAR) 50 daily. 100-25 mg Anderso per tablet n [facility] acetaminoph Yes Take by Uni vers en 6-14 mouth as ity of (TYLENOL) 11:33: needed. [place] 500 mg 50 MD tablet Anderso n [facility] cyanocobala Yes Take by Uni vers min, 6-14 mouth. ity of vitamin 11:33: [place] B-12, 50 (VITAMIN Anderso B-12 ORAL) n [facility] hydroxyzine Yes Infiltratin 25mg Take 1 [facility] HCl 6-14 g duct tablet (25 ity of (ATARAX) 25 00:00: carcinoma mg) by [place] mg tablet 00 of right mouth MD female every 8 Anderso breast (eight) n hours as Cancer needed for Center itching. hydroxyzine Yes Infiltratin 25mg Take 1 [facility] HCl 6-14 g duct tablet (25 ity of (ATARAX) 25 00:00: carcinoma mg) by [place] mg tablet 00 of right mouth MD female every 8 Anderso breast (eight) n hours as Cancer needed for Center itching. hydroxyzine Yes Infiltratin 25mg Take 1 [facility] HCl 6-14 g duct tablet (25 ity of (ATARAX) 25 00:00: carcinoma mg) by [place] mg tablet 00 of right mouth MD female every 8 Anders[place] breast (eight) n hours as Cancer needed for Center itching. triamcinolo Yes Infiltratin Apply [facility] ne 6-03 g duct topically ity of (KENALOG) 00:00: carcinoma to [place] as 0.1% cream 00 of right affected M D female area(s) Anderso breast twice n daily. Cancer Center triamcinolo Yes Infiltratin Apply [facility] ne 6-03 g duct topically ity of (KENALOG) 00:00: carcinoma to [place] as 0.1% cream 00 of right affected M D female area(s) Anderso breast twice n daily. Cancer [facility] Yes Infiltratin Apply Univers ne 6-03 g duct topically ity of (KENALOG) 00:00: carcinoma to [place] as 0.1% cream 00 of right affected M D female area(s) Anderso breast twice n daily. [facility] lidocaine-p Yes Infiltratin Apply [facility] rilocaine 5-24 g duct topically ity of (EMLA) 00:00: carcinoma to [place] 2.5-2.5% 00 of right affected MD cream female area(s) as [place] o breast needed for n mild pain. [facility] lidocaine-p Yes Infiltratin Apply [facility] rilocaine 5-24 g duct topically ity of (EMLA) 00:00: carcinoma to [place] 2.5-2.5% 00 of right affected MD cream female area(s) as [place] o breast needed for n mild pain. [facility] lidocaine-p 2021- No Infiltratin Apply [facility] rilocaine 5-24 12-09 g duct topically it y of (EMLA) 00:00: 00:00 carcinoma to [place] 2.5-2.5% 00 :00 of right affected MD cream female area(s) as [place] o breast needed for n mild pain. [facility] prochlorper Yes Infiltratin 10mg Take 1 [facility] azine 5-23 g duct tablet (10 ity of (Compazine) 00:00: carcinoma mg) by [place] 10 mg 00 of right mouth MD tablet female every 6 Anderso breast (six) n hours as Cancer needed for Center nausea or vomiting. traMADol Yes Infiltratin 50mg Take 1 [facility] (Ultram) 50 5-23 g duct tablet (50 ity of mg tablet 00:00: carcinoma mg) by [place] 00 of right mouth MD female every [...] ity of (Compazine) 00:00: carcinoma mg) by [place] 10 mg 00 of right mouth MD tablet female every 6 Anders[place] breast (six) n hours as Cancer needed for Center nausea or vomiting. traMADol No Infiltratin 50mg Take 1 [facility] (Ultram) 50 5-23 12-02 g duct tablet (50 ity of mg tablet 00:00: 00:00 carcinoma mg) by [place] 00 :00 of right mouth MD female every 6 Anderso breast (six) n hours as Cancer needed for Center moderate pain (headache) . losartan-hy Yes 1{tbl} Take 1 Un michelle drochloroth 4-20 tablet by ity of iazide 10:43: mouth [place] 100-25 mg 49 daily. Medical per tablet Branch losartan-hy Yes 1{tbl} Take 1 Un [place] drochloroth 4-20 tablet by ity of iazide 10:43: mouth [place] 100-25 mg 49 daily. Medical per tablet Branch ACETAMINOPH Yes 1-2 pills U nivers EN 500 MG 4-20 a day ity of ORAL TAB 10:41: [place] 41 Medical Branch GLUCOSAMINE 0 Yes 1-2 pills U nivers &CHONDROIT- 4-20 a day ity of MV-MIN3 10:41: [place] [id number]- 41 Medical 0.5 MG ORAL Branch TAB omega-3 Yes 1000mg Take 1,000 Un michelle fatty acids 4-20 mg by ity of (FISH OIL) 10:41: mouth [place] capsule 41 daily. Medical Branch ACETAMINOPH Yes 1-2 pills U nivers EN 500 MG 4-20 a day ity of ORAL TAB 10:41: [place] [id number] Medical Branch GLUCOSAMINE Yes 1-2 pills U nivers &CHONDROIT- 4-20 a day ity of MV-MIN3 10:41: [place] Medical 0.5 MG ORAL Branch TAB omega-3 Yes 1000mg Take 1,000 Un michelle fatty acids 4-20 mg by ity of (FISH OIL) 10:41: mouth [place] capsule 41 daily. Medical Branch ACETAMINOPH Yes 1-2 pills U nivers EN 500 MG 4-20 a day ity of ORAL TAB 10:41: [place] [address] Medical Branch GLUCOSAMINE Yes 1-2 pills U nivers &CHONDROIT- 4-20 a day ity of MV-MIN3 10:41: [place] Medical 0.5 MG ORAL Branch TAB omega-3 Yes 1000mg Take 1,000 Un michelle fatty acids 4-20 mg by ity of (FISH OIL) 10:41: mouth [place] capsule 41 daily. Medical Branch ACETAMINOPH Yes 1-2 pills U nivers EN 500 MG 4-20 a day ity of ORAL TAB 10:41: [place] [address] Medical Branch GLUCOSAMINE Yes 1-2 pills U nivers &CHONDROIT- 4-20 a day ity of MV-MIN3 10:41: [place] Medical 0.5 MG ORAL Branch TAB ASPIRIN 81 Yes 1 PO daily U nivers MG ORAL 4-20 ity of CHEW 10:41: [place] [address] Medical Branch cholecalcif Yes 1{capsu Take 1 U nivers adeel, 4-20 le} capsule by ity of vitamin D3, 10:41: mouth [place] (VITAMIN 41 daily. Medical D3) 4,000 Branch unit Cap omega-3 Yes 1000mg Take 1,000 Un michelle fatty acids 4-20 mg by ity of (FISH OIL) 10:41: mouth [place] capsule 41 daily. Medical Branch ACETAMINOPH Yes 1-2 pills U nivers EN 500 MG 4-20 a day ity of ORAL TAB 10:41: [place] [address] Medical Branch GLUCOSAMINE Yes 1-2 pills U nivers &CHONDROIT- 4-20 a day ity of MV-MIN3 10:41: [place] 300 Medical 0.5 MG ORAL Branch TAB ASPIRIN 81 Yes 1 PO daily U nivers MG ORAL 4-20 ity of CHEW 10:41: [place] [address] Medical Branch cholecalcif Yes 1{capsu Take 1 U nivers adeel, 4-20 le} capsule by ity of vitamin D3, 10:41: mouth [place] (VITAMIN 41 daily. Medical D3) 4,000 Branch unit Cap omega-3 Yes 1000mg Take 1,000 Un michelle fatty acids 4-20 mg by ity of (FISH OIL) 10:41: mouth [place] capsule 41 daily. Medical Branch ACETAMINOPH Yes 1-2 pills U nivers EN 500 MG 4-20 a day ity of ORAL TAB 10:41: [place] [address] Medical Branch GLUCOSAMINE Yes 1-2 pills U nivers &CHONDROIT- 4-20 a day ity of MV-MIN3 10:41: [place] Medical 0.5 MG ORAL Branch TAB ASPIRIN 81 Yes 1 PO daily U nivers MG ORAL 4-20 ity of CHEW 10:41: [place] [address] Medical Branch cholecalcif Yes 1{capsu Take 1 U nivers adeel, 4-20 le} capsule by ity of vitamin D3, 10:41: mouth [place] (VITAMIN 41 daily. Medical D3) 4,000 Branch unit Cap omega-3 Yes 1000mg Take 1,000 Un michelle fatty acids 4-20 mg by ity of (FISH OIL) 10:41: mouth [place] capsule 41 daily. Medical Branch ACETAMINOPH Yes 1-2 pills U nivers EN 500 MG 4-20 a day ity of ORAL TAB 10:41: [place] [address] Medical Branch GLUCOSAMINE Yes 1-2 pills U nivers &CHONDROIT- 4-20 a day ity of MV-MIN3 10:41: [place] 300 Medical 0.5 MG ORAL Branch TAB omega-3 Yes 1000mg Take 1,000 Un michelle fatty acids 4-20 mg by ity of (FISH OIL) 10:41: mouth [place] capsule 41 daily. Medical Branch ACETAMINOPH Yes 1-2 pills U nivers EN 500 MG 4-20 a day ity of ORAL TAB 10:41: [place] 41 Medical Branch GLUCOSAMINE Yes 1-2 pills U nivers &CHONDROIT- 4-20 a day ity of MV-MIN3 10:41: [place] Medical 0.5 MG ORAL Branch TAB omega-3 Yes 1000mg Take 1,000 Un michelle fatty acids 4-20 mg by ity of (FISH OIL) 10:41: mouth [place] capsule 41 daily. Medical Branch ACETAMINOPH Yes 1-2 pills U nivers EN 500 MG 4-20 a day ity of ORAL TAB 10:41: [place] 41 Medical Branch GLUCOSAMINE Yes 1-2 pills U nivers &CHONDROIT- 4-20 a day ity of MV-MIN3 10:41: [place] Medical 0.5 MG ORAL Branch TAB omega-3 Yes 1000mg Take 1,000 Un michelle fatty acids 4-20 mg by ity of (FISH OIL) 10:41: mouth [place] capsule 41 daily. Medical Branch ACETAMINOPH Yes 1-2 pills U nivers EN 500 MG 4-20 a day ity of ORAL TAB 10:41: [place] 41 Medical Branch GLUCOSAMINE Yes 1-2 pills U nivers &CHONDROIT- 4-20 a day ity of MV-MIN3 10:41: [place] Medical 0.5 MG ORAL Branch TAB omega-3 Yes 1000mg Take 1,000 Un michelle fatty acids 4-20 mg by ity of (FISH OIL) 10:41: mouth [place] capsule 41 daily. Medical Branch ACETAMINOPH Yes 1-2 pills U nivers EN 500 MG 4-20 a day ity of ORAL TAB 10:41: [place] 41 Medical Branch GLUCOSAMINE Yes 1-2 pills U nivers &CHONDROIT- 4-20 a day ity of MV-MIN3 10:41: [place] Medical 0.5 MG ORAL Branch TAB omega-3 Yes 1000mg Take 1,000 Un michelle fatty acids 4-20 mg by ity of (FISH OIL) 10:41: mouth [place] capsule 41 daily. Medical Branch ACETAMINOPH 2021-0 Yes 1-2 pills U nivers EN 500 MG 4-20 a day ity of ORAL TAB 10:41: [place] 41 Medical Branch GLUCOSAMINE 2021-0 Yes 1-2 pills U nivers &CHONDROIT- 4-20 a day ity of MV-MIN3 10:41: [place] [id number] Medical 0.5 MG ORAL Branch TAB omega-3 2021-0 Yes 1000mg Take 1,000 Un michelle fatty acids 4-20 mg by ity of (FISH OIL) 10:41: mouth [place] capsule 41 daily. Medical Branch HYDROcodone 2021-0 Yes 4647 1{tbl} Take 1 Un michelle -acetaminop 4-12 tablet by ity of hen (NORCO) 00:00: mouth [place] 5-325 mg 00 every 6 Medical tablet (six) Branch hours as needed for Pain (scale 7-10). Indication s: acute pain HYDROcodone 2021-0 Yes 4647 1{tbl} Take 1 Un michelle -acetaminop 4-12 tablet by ity of hen (NORCO) 00:00: mouth [place] 5-325 mg 00 every 6 Medical tablet (six) Branch hours as needed for Pain (scale 7-10). Indication s: acute pain HYDROcodone 2021-0 Yes 4647 1{tbl} Take 1 Un michelle -acetaminop 4-12 tablet by ity of hen (NORCO) 00:00: mouth [place] 5-325 mg 00 every 6 Medical tablet (six) Branch hours as needed for Pain (scale 7-10). Indication s: acute pain HYDROcodone 202-0 Yes 4647 1{tbl} Take 1 Un michelle -acetaminop 4-12 tablet by ity of hen (NORCO) 00:00: mouth [place] 5-325 mg 00 every 6 Medical tablet (six) Branch hours as needed for Pain (scale 7-10). Indication s: acute pain HYDROcodone 202-0 Yes 4647 1{tbl} Take 1 Un michelle -acetaminop 4-12 tablet by ity of hen (NORCO) 00:00: mouth [place] 5-325 mg 00 every 6 Medical tablet (six) Branch hours as needed for Pain (scale 7-10). Indication s: acute pain HYDROcodone 2022-0 Yes 4647 1{tbl} Take 1 Un michelle -acetaminop 4-12 tablet by ity of hen (NORCO) 00:00: mouth [place] 5-325 mg 00 every 6 Medical tablet (six) Branch hours as needed for Pain (scale 7-10). Indication s: acute pain HYDROcodone 2022-0 Yes 4647 1{tbl} Take 1 Un michelle -acetaminop 4-12 tablet by ity of hen (NORCO) 00:00: mouth [place] 5-325 mg 00 every 6 Medical tablet (six) Branch hours as needed for Pain (scale 7-10). Indication s: acute pain HYDROcodone 2022-0 Yes 4647 1{tbl} Take 1 Un michelle -acetaminop 4-12 tablet by ity of hen (NORCO) 00:00: mouth [place] 5-325 mg 00 every 6 Medical tablet (six) Branch hours as needed for Pain (scale 7-10). Indication s: acute pain HYDROcodone 2022-0 Yes 4647 1{tbl} Take 1 Un michelle -acetaminop 4-12 tablet by ity of hen (NORCO) 00:00: mouth [place] 5-325 mg 00 every 6 Medical tablet (six) Branch hours as needed for Pain (scale 7-10). Indication s: acute pain HYDROcodone 2022-0 Yes 4647 1{tbl} Take 1 Un michelle -acetaminop 4-12 tablet by ity of hen (NORCO) 00:00: mouth [place] 5-325 mg 00 every 6 Medical tablet (six) Branch hours as needed for Pain (scale 7-10). Indication s: acute pain HYDROcodone 2022-0 Yes 4647 1{tbl} Take 1 Un michelle -acetaminop 4-12 tablet by ity of hen (NORCO) 00:00: mouth [place] 5-325 mg 00 every 6 Medical tablet (six) Branch hours as needed for Pain (scale 7-10). Indication s: acute pain HYDROcodone 2022-0 Yes 4647 1{tbl} Take 1 Un michelle -acetaminop 4-12 tablet by ity of hen (NORCO) 00:00: mouth [place] 5-325 mg 00 every 6 Medical tablet (six) Branch hours as needed for Pain (scale 7-10). Indication s: acute pain HYDROcodone 2022-0 Yes 4647 1{tbl} Take 1 Un michelle -acetaminop 4-12 tablet by ity of hen (NORCO) 00:00: mouth [place] 5-325 mg 00 every 6 Medical tablet (six) Branch hours as needed for Pain (scale 7-10). Indication s: acute pain HYDROcodone 202-0 Yes 4647 1{tbl} Take 1 Un [place]helle -acetaminop 4-12 tablet by ity of hen (NORCO) 00:00: mouth [place] 5-325 mg 00 every 6 Medical tablet (six) Branch hours as needed for Pain (scale 7-10). Indication s: acute pain HYDROcodone 202-0 Yes 4647 1{tbl} Take 1 Un [place]helle -acetaminop 4-12 tablet by ity of hen (NORCO) 00:00: mouth [place] 5-325 mg 00 every 6 Medical tablet (six) Branch hours as needed for Pain (scale 7-10). Indication s: acute pain HYDROcodone 2021-0 Yes 4647 1{tbl} Take 1 Un [place]le -acetaminop 4-12 tablet by ity of hen (NORCO) 00:00: mouth [place] 5-325 mg 00 every 6 Medical tablet (six) Branch hours as needed for Pain (scale 7-10). Indication s: acute pain HYDROcodone 2021-0 Yes 4647 1{tbl} Take 1 Un [place]le -acetaminop 4-12 tablet by ity of hen (NORCO) 00:00: mouth [place] 5-325 mg 00 every 6 Medical tablet (six) Branch hours as needed for Pain (scale 7-10). Indication s: acute pain albuterol 2021-0 Yes INHALE 1 Univ ers (VENTOLIN 3-29 PUFF EVERY ity of HFA,PROAIR 00:00: 6-8 HOURS [place] HFA) 90 00 NEEDED MD mcg/puff [place] inhaler n [facility] albuterol 2021-0 Yes INHALE 1 Univ ers (VENTOLIN 3-29 PUFF EVERY ity of HFA,PROAIR 00:00: 6-8 HOURS [place] HFA) 90 00 NEEDED MD mcg/puff [place] inhaler n [facility] albuterol 2021-0 Yes INHALE 1 Univ ers (VENTOLIN 3-29 PUFF EVERY ity of HFA,PROAIR 00:00: 6-8 HOURS [place] HFA) 90 00 NEEDED MD [place]/ken Anderso inhaler [facility] cetirizine 0 Yes [id number] 10mg Take 1 U nivers (ZYRTEC) 10 3-28 tablet by ity of mg tablet 00:00: mouth [place] 00 daily. Medical Branch guaiFENesin 0 Yes [id number] 600mg Take 1 Univers (MUCINEX) 3-28 tablet by ity o f 600 mg 00:00: mouth [place] tablet 00 every 12 Medical (twelve) Branch hours. cetirizine 0 Yes [id number] 10mg Take 1 U nivers (ZYRTEC) 10 3-28 tablet by ity of mg tablet 00:00: mouth [place] 00 daily. [facility] Branch guaiFENesin Yes [id number] 600mg Take 1 Univers (MUCINEX) 3-28 tablet by ity o f 600 mg 00:00: mouth [place] tablet 00 every 12 Medical (twelve) Branch hours. cetirizine 0 Yes [id number] 10mg Take 1 U nivers (ZYRTEC) 10 3-28 tablet by ity of mg tablet 00:00: mouth [place] 00 daily. [facility] Branch guaiFENesin 0 Yes [id number] 600mg Take 1 Univers (MUCINEX) 3-28 tablet by ity o f 600 mg 00:00: mouth [place] tablet 00 every 12 Medical (twelve) Branch hours. cetirizine 0 Yes [id number] 10mg Take 1 U nivers (ZYRTEC) 10 3-28 tablet by ity of mg tablet 00:00: mouth [place] 00 daily. [facility] Branch guaiFENesin 0 Yes [id number] 600mg Take 1 Univers (MUCINEX) 3-28 tablet by ity o f 600 mg 00:00: mouth [place] tablet 00 every 12 Medical (twelve) Branch hours. cetirizine 0 Yes [id number] 10mg Take 1 U nivers (ZYRTEC) 10 3-28 tablet by ity of mg tablet 00:00: mouth [place] 00 daily. [facility] Branch guaiFENesin 0 Yes [id number] 600mg Take 1 Univers (MUCINEX) 3-28 tablet by ity o f 600 mg 00:00: mouth [place] tablet 00 every 12 Medical (twelve) Branch hours. cetirizine 2021-0 Yes [id number] 10mg Take 1 U nivers (ZYRTEC) 10 3-28 tablet by ity of mg tablet 00:00: mouth [place] 00 daily. Medical Branch guaiFENesin 2021-0 Yes [id number] 600mg Take 1 Univers (MUCINEX) 3-28 tablet by ity o f 600 mg 00:00: mouth [place] tablet 00 every 12 Medical (twelve) Branch hours. cetirizine 2021-0 Yes [id number] 10mg Take 1 U nivers (ZYRTEC) 10 3-28 tablet by ity of mg tablet 00:00: mouth [place] 00 daily. Medical Branch guaiFENesin 0 Yes [id number] 600mg Take 1 Univers (MUCINEX) 3-28 tablet by ity o f 600 mg 00:00: mouth [place] tablet 00 every 12 Medical (twelve) Branch hours. cetirizine 2021-0 Yes [id number] 10mg Take 1 U nivers (ZYRTEC) 10 3-28 tablet by ity of mg tablet 00:00: mouth [place] 00 daily. Medical Branch guaiFENesin 2021-0 Yes [id number] 600mg Take 1 Univers (MUCINEX) 3-28 tablet by ity o f 600 mg 00:00: mouth [place] tablet 00 every 12 Medical (twelve) Branch hours. cetirizine 2021-0 Yes [id number] 10mg Take 1 U nivers (ZYRTEC) 10 3-28 tablet by ity of mg tablet 00:00: mouth [place] 00 daily. Medical Branch guaiFENesin 2021-0 Yes [id number] 600mg Take 1 Univers (MUCINEX) 3-28 tablet by ity o f 600 mg 00:00: mouth [place] tablet 00 every 12 Medical (twelve) Branch hours. cetirizine 2021-0 Yes [id number] 10mg Take 1 U nivers (ZYRTEC) 10 3-28 tablet by ity of mg tablet 00:00: mouth [place] 00 daily. Medical Branch guaiFENesin 2021-0 Yes [id number] 600mg Take 1 Univers (MUCINEX) 3-28 tablet by ity o f 600 mg 00:00: mouth [place] tablet 00 every 12 Medical (twelve) Branch hours. cetirizine 2021-0 Yes [id number] 10mg Take 1 U nivers (ZYRTEC) 10 3-28 tablet by ity of mg tablet 00:00: mouth [place] 00 daily. Medical Branch guaiFENesin 2021-0 Yes [id number] 600mg Take 1 Univers (MUCINEX) 3-28 tablet by ity o f 600 mg 00:00: mouth [place] tablet 00 every 12 Medical (twelve) Branch hours. cetirizine 2021-0 Yes [id number] 10mg Take 1 U nivers (ZYRTEC) 10 3-28 tablet by ity of mg tablet 00:00: mouth [place] 00 daily. Medical Branch guaiFENesin 2021-0 Yes [id number] 600mg Take 1 Univers (MUCINEX) 3-28 tablet by ity o f 600 mg 00:00: mouth [place] tablet 00 every 12 Medical (twelve) Branch hours. cetirizine 2021-0 Yes [id number] 10mg Take 1 U nivers (ZYRTEC) 10 3-28 tablet by ity of mg tablet 00:00: mouth [place] 00 daily. Medical Branch guaiFENesin 2021-0 Yes [id number] 600mg Take 1 Univers (MUCINEX) 3-28 tablet by ity o f 600 mg 00:00: mouth [place] tablet 00 every 12 Medical (twelve) Branch hours. cetirizine 2021-0 Yes [id number] 10mg Take 1 U nivers (ZYRTEC) 10 3-28 tablet by ity of mg tablet 00:00: mouth [place] 00 daily. Medical Branch guaiFENesin 2021-0 Yes [id number] 600mg Take 1 Univers (MUCINEX) 3-28 tablet by ity o f 600 mg 00:00: mouth [place] tablet 00 every 12 Medical (twelve) Branch hours. cetirizine 2021-0 Yes [id number] 10mg Take 1 U nivers (ZYRTEC) 10 3-28 tablet by ity of mg tablet 00:00: mouth [place] 00 daily. Medical Branch guaiFENesin 2021-0 Yes [id number] 600mg Take 1 Univers (MUCINEX) 3-28 tablet by ity o f 600 mg 00:00: mouth [place] tablet 00 every 12 Medical (twelve) Branch hours. cetirizine 2-0 Yes [id number] 10mg Take 1 U nivers (ZYRTEC) 10 3-28 tablet by ity of mg tablet 00:00: mouth [place] 00 daily. Medical Branch guaiFENesin 2021-0 Yes [id number] 600mg Take 1 Univers (MUCINEX) 3-28 tablet by ity o f 600 mg 00:00: mouth [place] tablet 00 every 12 Medical (twelve) Branch hours. cetirizine 2-0 Yes [id number] 10mg Take 1 U nivers (ZYRTEC) 10 3-28 tablet by ity of mg tablet 00:00: mouth [place] 00 daily. Medical Branch guaiFENesin 2021-0 Yes [id number] 600mg Take 1 Univers (MUCINEX) 3-28 tablet by ity o f 600 mg 00:00: mouth [place] tablet 00 every 12 Medical (twelve) Branch hours. nitroglycer 2020-[address] 1 Uni [...] Chest pain. nitroglycer 2020-[address] 0[address]4 U nivers in 0-22 mg under ity of (NITROSTAT) 00:00: the [place] 0.4 mg SL 00 tongue. MD yepez [facility] nitroglycer 2020-[address] 0[address]4 U nivers in 0-22 mg under ity of (NITROSTAT) 00:00: the [place] 0.4 mg SL 00 tongue. MD yepez [facility] nitroglycer 2020-[address] 0[address]4 U nivers in 0-22 mg under ity of (NITROSTAT) 00:00: the [place] 0.4 mg SL 00 tongue. MD yepez [facility] amLODIPine Yes [id number] 5mg Take 1 U nivers 5 mg tablet 9-08 tablet by ity of 00:00: mouth [place] 00 daily. Medical Branch atorvastati Yes [id number] 20mg Take 1 Univers n 20 mg 9-08 tablet by ity of tablet 00:00: mouth [place] 00 daily. Medical Branch amLODIPine 0 Yes [id number] 5mg Take 1 U nivers 5 mg tablet 9-08 tablet by ity of 00:00: mouth [place] 00 daily. Medical Branch amLODIPine 0 Yes [id number] 5mg Take 1 U nivers 5 mg tablet 9-08 tablet by ity of 00:00: mouth [place] 00 daily. Medical Branch amLODIPine 0 Yes [id number] 5mg Take 1 U nivers 5 mg tablet 9-08 tablet by ity of 00:00: mouth [place] 00 daily. [facility] atorvastati Yes 20mg Take 20 mg Univers n (LIPITOR) 03-01 by mouth ity of 20 mg 00:00: at [place] tablet 00 bedtime. MD Yoselin arizmendi [facility] atorvastati Yes 20mg Take 20 mg Univers n (LIPITOR) 03-01 by mouth ity of 20 mg 00:00: at [place] tablet 00 bedtime. MD [facility] atorvastati Yes 20mg Take 1 Univ ers n (LIPITOR) 03-01 tablet (20 it y of 20 mg 00:00: mg) by [place] tablet 00 mouth at [place] bedtime. [facility] amLODIPine 2022- No [id number] 5mg Take 1 Univers 5 mg tablet 03-01 tablet by it y of 00:00: 00:00 mouth [place] 00 :00 daily. Medical [facility] amLODIPine 2020-2022- No [id number] 5mg Take 1 Univers 5 mg tablet 03-01 tablet by it y of 00:00: 00:00 mouth [place] 00 :00 daily. [facility] amLODIPine 2020-2022- No [id number] 5mg Take 1 Univers 5 mg tablet 03-01 tablet by it y of 00:00: 00:00 mouth [place] 00 :00 daily. [facility] atorvastati 2022- No [id number] 20mg Take 1 Univers n 20 mg 03-01 tablet by ity of tablet 00:00: 00:00 mouth [place] 00 :00 daily. Medical [facility] hydroCHLORO 2021- No [id number] 25mg Take 1 Univers thiazide 25 03-01 04-20 tablet by it y of mg tablet 00:00: 00:00 mouth [place] 00 :00 daily. Medical [facility] methylPREDN 2017-0 Yes 84mg Take 21 Uni vers ISolone 4-05 tablets by ity of (MEDROL, 00:00: mouth [place] LEIGH,) 4 mg 00 SEE-INSTRU Med ical tablets CTIONS. Branch follow package directions diclofenac 2017-0 Yes 75mg Take 1 Unive rs 75 mg EC 4-05 tablet by ity of tablet 00:00: mouth 2 [place] 00 (two) Medical times Branch daily with [...] Medical times Branch daily with meals. acetaminoph 2017- Yes 1 - 2 by Un michelle en-codeine 1-11 mouth ity of (TYLENOL-CO 00:00: [place] 4-6 [place] #3[place] 00 hours as Medica l 300-30 mg needed for Bran ch tablet pain acetaminoph 2017- Yes 1 - 2 by Un michelle en-codeine 1-11 mouth ity of (TYLENOL-CO 00:00: every 4-6 [place] DEINE #3[place] 00 hours as Medica l 300-30 mg needed for Bran ch tablet pain acetaminoph 2016- Yes 1 - 2 by Un michelle [...] needed for Bran ch tablet pain acetaminoph 2016- Yes 1 - 2 by Un michelle en-codeine 1-11 mouth ity of (TYLENOL-CO 00:00: every 4-6 [place] DEINE #3[place] 00 hours as Medica l 300-30 mg needed for Bran ch tablet pain acetaminoph 2016- Yes 1 - 2 by Un michelle en-codeine 1-11 mouth ity of (TYLENOL-CO 00:00: every 4-6 [place] DEINE #3[place] 00 hours as Medica l 300-30 mg needed for Bran ch tablet pain acetaminoph 2016- Yes 1 - 2 by Un michelle en-codeine 1-11 mouth ity of (TYLENOL-CO 00:00: every 4-6 [place] DEINE #3[place] 00 hours as Medica l 300-30 mg needed for Bran ch tablet pain acetaminoph 2017- Yes 1 - 2 by Un michelle en-codeine 1-11 mouth ity of (TYLENOL-CO 00:00: every 4-6 [place] DEINE #3[place] 00 hours as Medica l 300-30 mg needed for Bran ch tablet pain acetaminoph 2017 Yes 1 - 2 by Un michelle en-codeine 1-11 mouth ity of (TYLENOL-CO 00:00: every 4-6 [place] DEINE #3[place] 00 hours as Medica l 300-30 mg needed for Bran ch tablet pain acetaminoph 2017 Yes 1 - 2 by Un michelle [...] needed for Bran ch tablet pain acetaminoph 2017 Yes 1 - 2 by Un michelle en-codeine 1-11 mouth ity of (TYLENOL-CO 00:00: every 4-6 [place] DEINE #3[place] 00 hours as Medica l 300-30 mg needed for Bran ch tablet pain acetaminoph 2017 Yes 1 - 2 by Un michelle en-codeine 1-11 mouth ity of (TYLENOL-CO 00:00: every 4-6 [place] DEINE #3[place] 00 hours as Medica l 300-30 mg needed for Bran ch tablet pain acetaminoph 2017 Yes 1 - 2 by Un michelle en-codeine 1-11 mouth ity of (TYLENOL-CO 00:00: every 4-6 [place] DEINE #3[place] 00 hours as Medica l 300-30 mg needed for Bran ch tablet pain acetaminoph 2017- Yes 1 - 2 by Un michelle en-codeine 1-11 mouth ity of (TYLENOL-CO 00:00: every 4-6 [place] DEINE #3) 00 hours as Medica l 300-30 mg needed for Bran ch tablet pain acetaminoph 2017 Yes 1 - 2 by Un michelle en-codeine 1-11 mouth ity of (TYLENOL-CO 00:00: every 4-6 [place] DEINE #3) 00 hours as Medica l 300-30 mg needed for Bran ch tablet pain traMADOL 0 Yes Univers (ULTRAM) 50 9-02 ity of mg tablet 00:00: Medical Branch traMADOL 20160 Yes Univers (ULTRAM) 50 9-02 ity of mg tablet 00:00: Medical Branch traMADOL 20160 Yes Univers (ULTRAM) 50 9-02 ity of mg tablet 00:00: [facility] traMADOL 0 Yes Univers (ULTRAM) 50 9-02 ity of mg tablet 00:00: [facility] traMADOL 0 Yes Univers (ULTRAM) 50 9-02 ity of mg tablet 00:00: [facility] traMADOL 20160 Yes Univers (ULTRAM) 50 9-02 ity of mg tablet 00:00: [facility] traMADOL 20160 Yes Univers (ULTRAM) 50 9-02 ity of mg tablet 00:00: [facility] traMADOL 20160 Yes Univers (ULTRAM) 50 9-02 ity of mg tablet 00:00: [facility] traMADOL 20160 Yes Univers (ULTRAM) 50 9-02 ity of mg tablet 00:00: [facility] traMADOL 20160 Yes Univers (ULTRAM) 50 9-02 ity of mg tablet 00:00: [facility] traMADOL 20160 Yes Univers (ULTRAM) 50 9-02 ity of mg tablet 00:00: Medical Branch traMADOL 20160 Yes Univers (ULTRAM) 50 9-02 ity of mg tablet 00:00: Medical Branch traMADOL 20160 Yes Univers (ULTRAM) 50 9-02 ity of mg tablet 00:00: [facility] traMADOL 20160 Yes Univers (ULTRAM) 50 9-02 ity of mg tablet 00:00: [facility] traMADOL 20160 Yes Univers (ULTRAM) 50 9-02 ity of mg tablet 00:00: Medical Branch traMADOL 2016-0 Yes Univers (ULTRAM) 50 9-02 ity of mg tablet 00:00: [address] traMADOL 2016-0 Yes Univers (ULTRAM) 50 9-02 ity of mg tablet 00:00: [address] albuterol albuterol No albuterol [place] sulfate HFA sulfate HFA sulfate da 90 90 HFA 90 Medical mcg/actuati mcg/actuati mcg/actuat Group on aerosol on aerosol ion inhaler inhaler aerosol INHALE 1 INHALE 1 inhaler PUFF EVERY PUFF EVERY INHALE 1 6-8 HOURS 6-8 HOURS PUFF EVERY NEEDED NEEDED 6-8 HOURS NEEDED atorvastati atorvastati No atorvastat [place] n 20 mg n 20 mg in 20 mg da tablet TAKE tablet TAKE tablet Medical 1 TABLET BY 1 TABLET BY TAKE 1 Group MOUTH EVERY MOUTH EVERY TABLET BY DAY IN THE DAY IN THE MOUTH MORNING MORNING EVERY DAY IN THE MORNING azelastine azelastine No 1spray( Q1D azelastine [place] 137 mcg 137 mcg s) 137 mcg da (0.1 %) (0.1 %) (0.1 %) Medica l nasal spray nasal spray nasal Group aerosol aerosol spray [place] 1 [place] 1 aerosol spray every spray every [place] 1 day by day by spray intranasal intranasal every day route for route for by 90 days. 90 days. intranasal route for 90 days. dicyclomine dicyclomine No dicyclomin [place] 20 mg 20 mg e 20 mg da tablet TAKE tablet TAKE tablet Medical 1 TABLET 1 TABLET TAKE 1 Group FOUR TIMES FOUR TIMES TABLET A DAY A DAY FOUR TIMES NEEDED NEEDED A DAY NEEDED fluticasone fluticasone No 1spray( Q1D fluticason [place] propionate propionate s) e da 50 50 propionate Medical mcg/actuati mcg/actuati 50 G roup on nasal on nasal mcg/actuat spray,suspe spray,suspe ion nasal nsion [place] nsion [place] spray,susp 1 spray 1 spray ension every day every day [place] 1 by by spray intranasal intranasal every day route for route for by 90 days. 90 days. intranasal route for 90 days. gabapentin gabapentin No gabapentin [place] 300 mg 300 mg 300 mg da capsule capsule capsule Medica l TAKE 1 TAKE 1 TAKE 1 Group CAPSULE BY CAPSULE BY CAPSULE BY MOUTH TWICE MOUTH TWICE MOUTH DAILY. DAILY. TWICE DAILY. hydrocodone hydrocodone No hydrocodon [place] 5 5 e 5 da mg-acetamin mg-acetamin mg-acetami Medical ophen 325 ophen 325 nophen 325 Group mg tablet mg tablet mg tablet TAKE 1 TAKE 1 TAKE 1 TABLET BY TABLET BY TABLET BY MOUTH EVERY MOUTH EVERY MOUTH 6 HOURS 6 HOURS EVERY 6 NEEDED FOR NEEDED FOR HOURS SEVERE PAIN SEVERE PAIN NEEDED FOR OR ACUTE OR ACUTE SEVERE PAIN PAIN PAIN OR ACUTE PAIN hydroxyzine hydroxyzine No hydroxyzin [place] HCl 25 mg HCl 25 mg e HCl 25 d a tablet TAKE tablet TAKE mg tablet Medical 1 TABLET 1 TABLET TAKE 1 Group (25 MG) BY (25 MG) BY TABLET (25 MOUTH EVERY MOUTH EVERY MG) BY 8 (EIGHT) 8 (EIGHT) MOUTH HOURS HOURS EVERY 8 NEEDED FOR NEEDED FOR (EIGHT) ITCHING. ITCHING. HOURS NEEDED FOR ITCHING. letrozole letrozole No letrozole [place] 2.5 mg 2.5 mg 2.5 mg da tablet TAKE tablet TAKE tablet Medical 1 TABLET BY 1 TABLET BY TAKE 1 Group MOUTH EVERY MOUTH EVERY TABLET BY DAY DAY MOUTH EVERY DAY lidocaine-p lidocaine-p No lidocaine- [place] rilocaine rilocaine prilocaine da 2.5 %-2.5 % 2.5 %-2.5 % 2.5 %-2.5 Medical topical topical % topical Grou p cream APPLY cream APPLY cream TOPICALLY TOPICALLY APPLY TO AFFECTED TO AFFECTED TOPICALLY AREA(S) AREA(S) TO NEEDED FOR NEEDED FOR AFFECTED MILD PAIN. MILD PAIN. AREA(S) NEEDED FOR MILD PAIN. loratadine loratadine No 1 Q1D loratadine [place] 10 mg 10 mg 10 mg da tablet Take tablet Take tablet Medical 1 tablet 1 tablet Take 1 Group every day every day tablet by oral by oral every day route for route for by oral 90 days. 90 days. route for 90 days. losartan losartan No losartan [place] 100 100 100 da mg-hydrochl mg-hydrochl mg-hydroch Medical orothiazide orothiazide lorothiazi Group 25 mg 25 mg de 25 mg tablet TAKE tablet TAKE tablet 1 TABLET BY 1 TABLET BY TAKE 1 MOUTH EVERY MOUTH EVERY TABLET BY DAY DAY MOUTH EVERY DAY nystatin nystatin No nystatin [place] 100,000 100,000 100,000 da unit/mL unit/mL unit/mL Medica l oral oral oral Group suspension suspension suspension SWISH, SWISH, SWISH, HOLD, THEN HOLD, THEN HOLD, THEN SWALLOW 6 SWALLOW 6 SWALLOW 6 ML 4 TIMES ML 4 TIMES ML 4 TIMES A DAY FOR A DAY FOR A DAY FOR 10 DAYS 10 DAYS 10 DAYS ondansetron ondansetron No ondansetro [place] HCl 8 mg HCl 8 mg n HCl 8 mg d a tablet TAKE tablet TAKE tablet Medical 1 TABLET (8 1 TABLET (8 TAKE 1 Group MG) BY MG) BY TABLET (8 MOUTH EVERY MOUTH EVERY MG) BY 8 (EIGHT) 8 (EIGHT) MOUTH HOURS HOURS EVERY 8 NEEDED FOR NEEDED FOR (EIGHT) NAUSEA. NAUSEA. HOURS NEEDED FOR NAUSEA. pantoprazol pantoprazol No 1 Q1D pantoprazo [place] e 40 mg e 40 mg le 40 mg da tablet,jn tablet,jn tablet,del Medical yed release yed release ayed G roup Take 1 Take 1 release tablet tablet Take 1 every day every day tablet by oral by oral every day route for route for by oral 30 days. 30 days. route for 30 days. prochlorper prochlorper No prochlorpe [place] azine azine razine da maleate 10 maleate 10 maleate 10 Medical mg tablet mg tablet mg tablet Group TAKE 1 TAKE 1 TAKE 1 TABLET BY TABLET BY TABLET BY MOUTH EVERY MOUTH EVERY MOUTH 6 HOURS 6 HOURS EVERY 6 NEEDED FOR NEEDED FOR HOURS NAUSEA OR NAUSEA OR NEEDED FOR VOMITING. VOMITING. NAUSEA OR VOMITING. triamcinolo triamcinolo No triamcinol [place] ne ne one da acetonide acetonide acetonide Medical 0.1 % 0.1 % 0.1 % Group topical topical topical cream APPLY cream APPLY cream TOPICALLY TOPICALLY APPLY TO AFFECTED TO AFFECTED TOPICALLY AREA(S) AREA(S) TO TWICE TWICE AFFECTED DAILY. DAILY. AREA(S) TWICE DAILY. Verzenio Verzenio No Verzenio [place] 150 mg 150 mg 150 mg da tablet tablet tablet Medical Group Vital Signs Vital Name Observation Time Observation Value Comments Source Systolic blood 2022-11-13 20:47:00 108 mm[Hg] Univer ambreen [facility] Diastolic blood 2022-11-13 20:47:00 68 mm[Hg] [facility] Heart rate 2022-11-13 20:47:00 92 /min [facility] [place] [facility] Respiratory rate 2022-11-13 20:47:00 18 /min [facility] [place] [facility] Body height 2022-11-13 20:47:00 172.7 cm [facility] [place] [facility] Body weight 2022-11-13 20:47:00 92.08 kg [facility] [place] [facility] BMI 2022-11-13 20:47:00 30.87 kg/m2 [facility] [place] [facility] [place] Oxygen saturation in 2022-11-13 20:47:00 96 /min University of Arterial blood by [facility] Pulse oximetry Branch BP Diastolic 2022-09-19 00:00:00 84 mm[Hg] [facility] Height 2022-09-19 00:00:00 68 [in_i] [facility] BMI (Body Mass 2022-09-19 00:00:00 31.3 kg/m2 [facility] scientist Medical Index) Group BP Systolic 2022-09-19 00:00:00 127 mm[Hg] [facility] Body Weight 2022-09-19 00:00:00 205.8 [lb_av] [facility] Systolic blood 2022-09-03 20:24:00 116 mm[Hg] Univer sity of pressure [place] [facility] Diastolic blood 2022-09-03 20:24:00 69 mm[Hg] Unive rsity of pressure [place] [facility] [place] Heart rate 2022-09-03 20:24:00 60 /min [facility] [place] [facility] Respiratory rate 2022-09-03 20:24:00 18 /min [facility] [place] [facility] Body height 2022-09-03 20:24:00 172.7 cm [facility] [place] [facility] Body weight 2022-09-03 20:24:00 92.942 kg [facility] [place] [facility] BMI 2022-09-03 20:24:00 31.15 kg/m2 [facility] [place] [facility] Oxygen saturation in 2022-09-03 20:24:00 98 /min University of Arterial blood by [facility] Pulse oximetry Branch Systolic blood 2021-10-10 19:49:00 142 mm[Hg] Univer sity of pressure [place] [facility] Diastolic blood 2021-10-10 19:49:00 82 mm[Hg] Unive rsity of pressure [place] [facility] Heart rate 2021-10-10 19:47:00 60 /min [facility] [place] [facility] Respiratory rate 2021-10-10 19:47:00 18 /min [facility] [place] [facility] Body height 2021-10-10 19:47:00 172.7 cm [facility] [place] [facility] Body weight 2021-10-10 19:47:00 102.059 kg [facility] [place] [facility] BMI 2021-10-10 19:47:00 34.21 kg/m2 [facility] [place] [facility] Oxygen saturation in 2021-10-10 19:47:00 98 /min University of Arterial blood by [place] [employer] kaye Pulse oximetry Branch Systolic blood 2021-10-10 19:49:00 142 mm[Hg] Univer sity of [facility] [place] [facility] Diastolic blood 2021-10-10 19:49:00 82 mm[Hg] Unive rsity of [facility] [place] [facility] Heart rate 2021-10-10 19:47:00 60 /min [facility] [place] [facility] Respiratory rate 2021-10-10 19:47:00 18 /min [facility] [place] [facility] Body height 2021-10-10 19:47:00 172.7 cm [facility] [place] [facility] Body weight 2021-10-10 19:47:00 102.059 kg [facility] [place] [facility] BMI 2021-10-10 19:47:00 34.21 kg/m2 [facility] [place] [facility] Oxygen saturation in 2021-10-10 19:47:00 98 /min University of Arterial blood by [place] [employer] kaye Pulse oximetry Branch Systolic blood 2022-11-20 16:19:30 143 mm[Hg] Univer sity of [facility] Diastolic blood 2022-11-20 16:19:30 83 mm[Hg] Unive rsity of [facility] Heart rate 2022-11-20 16:19:30 52 /min Universi ty of [facility] Body temperature 2022-11-20 16:19:30 36.5 [place] Univ ersity of [facility] Respiratory rate 2022-11-20 16:19:30 16 /min Univ ersity of [facility] Body weight 2022-11-20 16:19:30 93.8 kg Universi ty of [facility] BMI 2022-11-20 16:19:30 33.63 kg/m2 Universi ty of [facility] Oxygen saturation in 2022-06-01 15:37:30 98 /min University of Arterial blood by [facility] Pulse oximetry [facility] Body height 2022-05-25 04:31:55 167 cm Universi ty of [facility] Systolic blood 2022-03-06 19:50:00 116 mm[Hg] Univer sity of [facility] Diastolic blood 2022-03-06 19:50:00 77 mm[Hg] Unive rsity of [facility] Heart rate 2022-03-06 19:50:00 67 /min Universi ty of [facility] Body temperature 2022-03-06 19:50:00 36.67 [place] Univ ersity of [facility] Respiratory rate 2022-03-06 19:50:00 18 /min Univ ersity of [facility] Body weight 2022-03-06 18:29:00 97 kg Universi ty of [facility] BMI 2022-03-06 [...] rate 2022-01-02 19:17:00 17 /min Univ ersity [facility] Body weight 2022-01-02 19:17:00 98.3 kg Universi [facility] [place] MD [facility] BMI 2022-01-02 19:17:00 34.22 kg/m2 [facility] Oxygen saturation in 2021-11-21 19:08:30 99 /min University of Arterial blood by [facility] Pulse oximetry [facility] Body height 2021-11-14 18:40:00 [facility]5 [facility] 02 Sat by Pulse 2020-09-12 13:40:28 100 /min Oximetry BMI more than 35 2020-09-12 13:40:28 N Body Mass Index 2020-09-12 13:40:28 34.7 Height 2020-09-12 13:40:28 172.72\\S\\68 Pulse Rate 2020-09-12 13:40:28 60 /min Pulse Strength 2020-09-12 13:40:28 Normal /min Pulse Rhythm 2020-09-12 13:40:28 Regular /min Respiratory Rate 2020-09-12 13:40:28 18 /min Weight 2020-09-12 13:40:28 555065.06\\S\\3648 Weight Measurement 2020-09-12 13:40:28 Standing Scale Method 02 Sat by Pulse 2020-09-10 00:09:06 100 /min Oximetry BMI more than 35 2020-09-10 00:09:06 N Body Mass Index 2020-09-10 00:09:06 34.7 Height 2020-09-10 00:09:06 172.72\\S\\68 Pulse Rate 2020-09-10 00:09:06 60 /min Pulse Strength 2020-09-10 00:09:06 Normal /min Pulse Rhythm 2020-09-10 00:09:06 Regular /min Respiratory Rate 2020-09-10 00:09:06 18 /min Weight 2020-09-10 00:09:06 797931.06\\S\\3648 Weight Measurement 2020-09-10 00:09:06 Standing Scale Method 02 Sat by Pulse 2020-09-10 00:09:05 100 /min Oximetry BMI more than 35 2020-09-10 00:09:05 N Body Mass Index 2020-09-10 00:09:05 34.7 Height 2020-09-10 00:09:05 172.72\\S\\68 Pulse Rate 2020-09-10 00:09:05 60 /min Pulse Strength 2020-09-10 00:09:05 Normal /min Pulse Rhythm 2020-09-10 00:09:05 Regular /min Respiratory Rate 2020-09-10 00:09:05 18 /min Weight 2020-09-10 00:09:05 147673.06\\S\\3648 Weight Measurement 2020-09-10 00:09:05 Standing Scale Method 02 Sat by Pulse 2020-09-09 15:07:53 100 /min Oximetry BMI more than 35 2020-09-09 15:07:53 N Body Mass Index 2020-09-09 15:07:53 34.7 Height 2020-09-09 15:07:53 172.72\\S\\68 Pulse Rate 2020-09-09 15:07:53 60 /min Pulse Strength 2020-09-09 15:07:53 Normal /min Pulse Rhythm 2020-09-09 15:07:53 Regular /min Respiratory Rate 2020-09-09 15:07:53 18 /min Weight 2020-09-09 15:07:53 233679.06\\S\\3648 Weight Measurement 2020-09-09 15:07:53 Standing Scale Method [...] 2020-09-09 09:56:28 18 /min Weight 2020-09-09 09:56:28 242819.06\\S\\3648 Weight Measurement 2020-09-09 09:56:28 Standing Scale Method WEIGHT 2020-09-09 09:40:00 103.44701 kg HEIGHT 2020-09-09 09:40:00 172.72 cm Body Mass Index 2020-09-09 06:42:15 0050087.4 Height 2020-09-09 06:42:15 1\\S\\0.39 Weight 2020-09-09 06:42:15 802063.206\\S\\3760 Body Mass Index 2020-09-08 10:27:34 8584582.4 Height 2020-09-08 10:27:34 1\\S\\0.39 Weight 2020-09-08 10:27:34 172932.206\\S\\3760 WEIGHT 2020-09-08 10:27:00 106.242176 kg HEIGHT 2020-09-08 10:27:00 1 cm Procedures Procedure Date / Time Performing Source Performed Clinician URINE CULTURE 2022-11-20 16:57:00 Risa Aguilera [facility] URINALYSIS WITH MICROSCOPIC 2022-11-20 16:57:00 Risa Aguilera [facility] IF INDICATED [facility] URINALYSIS MICROSCOPIC EXAM 2022-11-20 16:57:00 Risa Aguilera [facility] COMPLETE BLOOD COUNT W/ 2022-11-20 15:41:00 Danisha Arias [facility] DIFFERENTIAL [facility] COMPREHENSIVE METABOLIC 2022-11-20 15:41:00 [facility] PANEL [facility] Results CBC 2022-11-20 15:41:00 Danisha Arias [facility] MANUAL DIFFERENTIAL 2022-11-20 15:41:[address] [facility] GLUCOSE LEVEL 2022-11-20 15:41:00 Hugo Danisha [facility] BLOOD UREA NITROGEN 2022-11-20 15:41:[address] [facility] ELECTROLYTE PANEL 2022-11-20 15:41:00 Hugo Danisha [facility] SERUM CREATININE 2022-11-20 15:41:00 Danisha Arias [facility] .GLOMERULAR FILTRATION RATE 2022-11-20 15:41:00 Danisha Arias [facility] CALCIUM LEVEL TOTAL 2022-11-20 15:41:[address] [facility] ALBUMIN LEVEL 2022-11-20 15:41:00 Danisha Arias [place] [facility] ALKALINE PHOSPHATASE 2022-11-20 15:41:[address] [facility] ALANINE AMINOTRANSFERASE 2022-11-20 15:41:00 [facility] ASPARTATE AMINOTRANSFERASE 2022-11-20 15:41:00 Dainsha [facility] TOTAL PROTEIN 2022-11-20 15:41:00 Danisha Arias [facility] FRACTIONATED BILIRUBIN 2022-11-20 15:41:00 Danisha Arias [facility] CONSENT/REFUSAL FOR 2022-11-13 20:14:27 Doctor Unassigned, [facility] DIAGNOSIS AND TREATMENT [place] [facility] COMPREHENSIVE METABOLIC 2022-10-22 14:14:00 Risa Aguilera [facility] PANEL [facility] COMPLETE BLOOD COUNT W/ 2022-10-22 14:14:00 Risa Aguilera [facility] DIFFERENTIAL [facility] GLUCOSE LEVEL 2022-10-22 14:14:00 Risa Aguilera [facility] BLOOD UREA NITROGEN 2022-10-22 14:14:[address] [facility] ELECTROLYTE PANEL 2022-10-22 14:14:00 Risa Aguilera [facility] SERUM CREATININE 2022-10-22 14:14:00 Risa Aguilera [facility] .GLOMERULAR FILTRATION RATE 2022-10-22 14:14:00 Risa Aguilera [facility] CALCIUM LEVEL TOTAL 2022-10-22 14:14:[address] [facility] ALBUMIN LEVEL 2022-10-22 14:14:00 Risa Aguilera [facility] ALKALINE PHOSPHATASE 2022-10-22 14:14:[address] [facility] ALANINE AMINOTRANSFERASE 2022-10-22 14:14:00 Risa Aguilera [facility] ASPARTATE AMINOTRANSFERASE 2022-10-22 14:14:00 [facility] PROTEIN 2022-10-22 14:14:00 Risa Aguilera [facility] FRACTIONATED BILIRUBIN 2022-10-22 14:14:00 Risa Aguilera [facility] Results CBC 2022-10-22 14:14:00 iRsa Aguilera [facility] MANUAL DIFFERENTIAL 2022-10-22 14:14:[address] [facility] PHYSICIAN ORDERS 2022-10-22 05:01:00 Doctor Unassigned, [facility] Name Medical [place] HB ECG ROUTINE & RHYTHM 2022-09-03 20:28:58 Jose Julian [facility] PATIENT FINANCIAL 2022-09-03 20:20:15 [facility] [place] [facility] PHYSICIAN ORDERS 2022-07-27 06:01:00 Doctor Unassigned, [facility] Name Medical Branch PATHOLOGY SURGICAL 2022-05-24 23:00:00 [facility] Remedios Moore MD [facility] SEGMENTAL MASTECTOMY - OTHER 2022-05-24 21:33:00 Kerry Plaza [facility] Remedios Moore MD [facility] TARGETED AXILLARY NODE 2022-05-24 21:33:00 Kerry Plaza [facility] [place] DISSECTION Remedios Moore MD [facility] AXILLARY LYMPHADENECTOMY 2022-05-24 21:33:00 Kerry Plaza [facility] Remedios Moore MD [facility] INTRAOPERATIVE LYMPHATIC 2022-05-24 21:33:00 Kerry Plaza [facility] [place] MAPPING Remedios Neville [facility] [place] PORT-A-CATH REMOVAL 2022-05-24 21:33:00 Kerry Plaza [facility]i [facility] [place] Remedios Moore MD [facility] [place] COMPLEX REPAIR OF TRUNK 2022-05-24 21:33:00 Yoav Valdez [facility] BREAST SPECIMEN RADIOGRAPH 2022-05-24 18:00:39 Maylin [facility] Lisa [facility] COVID-19 (SARS-COV-2) 2022-05-24 17:51:00 Kerry Plaza Univer [facility] ASYMPTOMATIC-LT Remedios Moore MD [facility] SEGMENTAL MASTECTOMY - OTHER 2022-05-24 13:00:00 Kerry Plaza [facility] Remedios Moore MD [facility] TARGETED AXILLARY NODE 2022-05-24 13:00:00 Kerry Plaza Unive [facility] DISSECTION Remedios Moore MD [facility] AXILLARY LYMPHADENECTOMY 2022-05-24 13:00:[address] [facility] Remedios Moore MD [facility] REARRANGEMENT OF ADJACENT 2022-05-24 13:00:00 Yoav Valdez [facility] TISSUE FOR REPAIR OF DEFECT MD [facility] MASTOPEXY 2022-05-24 13:00:00 Yoav Valdez [facility] EKG, 12-LEAD (PORTABLE) 2022-05-24 00:00:00 Elizabeth Izquierdo [facility] COMPLETE BLOOD COUNT W/ 2022-05-23 22:06:00 Evonne Carlisle [facility] [place] DIFFERENTIAL [facility] COMPREHENSIVE METABOLIC 2022-05-23 22:06:00 Evonne [place] [facility] [place] PANEL Lisa [facility] Results CBC 2022-05-23 22:06:00 Maylin [facility] MANUAL DIFFERENTIAL 2022-05-23 22:06:00 Maylin [facility] GLUCOSE LEVEL 2022-05-23 22:06:00 Maylin [facility] BLOOD UREA NITROGEN 2022-05-23 22:06:00 Maylin [facility] ELECTROLYTE PANEL 2022-05-23 22:06:00 Maylin [facility] SERUM CREATININE 2022-05-23 22:06:00 Maylin [facility] .GLOMERULAR FILTRATION RATE 2022-05-23 22:06:00 Maylin [facility] CALCIUM LEVEL TOTAL 2022-05-23 22:06:00 Maylin [facility] ALBUMIN LEVEL 2022-05-23 22:06:00 Maylin [facility] ALKALINE PHOSPHATASE 2022-05-23 22:06:00 Maylin [facility] ALANINE AMINOTRANSFERASE 2022-05-23 22:06:00 Maylin [facility] ASPARTATE AMINOTRANSFERASE 2022-05-23 22:06:00 Maylin [facility] TOTAL PROTEIN 2022-05-23 22:06:00 Maylin [facility] FRACTIONATED BILIRUBIN 2022-05-23 22:06:00 Maylin [facility] MAMMO POST PROCEDURE RIGHT 2022-05-23 21:52:00 Maylin [facility] US GUIDED BREAST NON-WIRE 2022-05-23 21:21:00 [facility] RIGHT Lisa [facility] US GUIDED AXILLARY LN 2022-05-23 21:21:00 Maylin [facility] NON-WIRE LOCALIZATION RIGHT Lisa Downing [facility] NM LYMPHOSCINTIGRAPHY BREAST 2022-05-23 18:40:00 Maylin , [facility] Lisa [facility] MAMMO DIGITAL DIAGNOSTIC 2022-04-27 17:07:00 Maylin, [facility] RIGHT W HOWARD Lisa CLAY [facility] er Center BREAST COMPLETE RIGHT 2022-04-27 16:20:00 Maylin, [facility] Lisa CLAY [facility] er Center US CHEST 2022-04-27 16:20:00 Maylin, [facility] Lisa [facility] URINALYSIS WITH MICROSCOPIC 2022-04-17 18:21:38 Risa Aguilera [facility] IF INDICATED [facility] COMPLETE BLOOD COUNT W/ 2022-04-17 16:39:00 Risa Aguilera [facility] DIFFERENTIAL [facility] Results CBC 2022-04-17 16:39:00 Risa Aguilera [facility] MANUAL DIFFERENTIAL 2022-04-17 16:39:[address] [facility] URINE CULTURE 2022-03-27 18:41:00 Danisha Arias [facility] Center URINALYSIS MICROSCOPIC 2022-03-27 18:41:00 Danisha Arias [facility] URINALYSIS WITH MICROSCOPIC 2022-03-27 18:41:00 Hugo Danisha [facility] IF INDICATED [facility] COMPLETE BLOOD COUNT W/ 2022-03-27 17:27:55 Risa Aguilera [facility] DIFFERENTIAL [facility] ASPARTATE AMINOTRANSFERASE 2022-03-27 17:27:55 Risa Aguilera [facility] ALANINE AMINOTRANSFERASE 2022-03-27 17:27:55 Risa Aguilera [facility] Center ALKALINE PHOSPHATASE 2022-03-27 17:27:55 Risa Aguilera [facility] Center BILIRUBIN TOTAL 2022-03-27 17:27:55 Risa Aguilera [facility] er Center Results CBC 2022-03-27 17:27:55 Risa Aguilera [facility] er Center MANUAL DIFFERENTIAL 2022-03-27 17:27:55 Risa Aguilera [facility] Center COMPLETE BLOOD COUNT W/ 2022-03-06 18:25:18 Hugo [facility] DIFFERENTIAL [facility] Center Results CBC 2022-03-06 18:25:18 Hugo Danisha [facility] er Center MANUAL DIFFERENTIAL 2022-03-06 18:25:18 Danisha Arias [facility] Center XR HUMERUS 2 VIEWS MINIMUM 2022-02-20 18:25:20 Risa Aguilera [facility] RIGHT [facility] Center US ARM VENOUS DOPPLER RIGHT 2022-02-20 18:13:[address] [facility] Center COMPLETE BLOOD COUNT W/ 2022-02-13 18:00:00 Risa Aguilera [facility] DIFFERENTIAL [facility] Center BLOOD UREA NITROGEN 2022-02-13 18:00:00 Risa Aguilera [facility] Center SERUM CREATININE 2022-02-13 18:00:[address] [facility] Center ASPARTATE AMINOTRANSFERASE 2022-02-13 18:00:00 Risa Aguil[address] U [facility] Center ALANINE AMINOTRANSFERASE 2022-02-13 18:00:00 Risa Aguilera [facility] Center ALKALINE PHOSPHATASE 2022-02-13 18:00:00 Risa Aguilera [facility] Center BILIRUBIN TOTAL 2022-02-13 18:00:00 Risa Aguilera [facility] Center Results CBC 2022-02-13 18:00:00 Risa Aguilera [facility] er Center MANUAL DIFFERENTIAL 2022-02-13 18:00:00 Risa Aguilera [facility] er Center SERUM CREATININE 2022-02-13 18:00:[address] [facility] Center .GLOMERULAR FILTRATION RATE 2022-02-13 18:00:00 Risa Aguilera [facility] US BREAST COMPLETE RIGHT 2022-02-09 14:54:00 [facility] US CHEST 2022-02-09 14:54:[address] [facility] Center COMPLETE BLOOD COUNT W/ 2022-02-06 19:16:25 Risa Aguilera [facility] DIFFERENTIAL [facility] er Center Results CBC 2022-02-06 19:16:25 Risa Aguilera [facility] er Center MANUAL DIFFERENTIAL 2022-02-06 19:16:25 Risa Aguilera [facility] er Center COMPLETE BLOOD COUNT W/ 2022-01-30 19:10:00 Risa Aguilera [facility] DIFFERENTIAL [facility] er Center Results CBC 2022-01-30 19:10:00 Risa Aguilera [facility] er Center MANUAL DIFFERENTIAL 2022-01-30 19:10:00 Risa Aguilera [facility] er Center COMPLETE BLOOD COUNT W/ 2022-01-22 15:43:00 Gil Aguirre [facility] DIFFERENTIAL [facility] er Center Results CBC 2022-01-22 15:43:00 Gil Aguirre [facility] er Center MANUAL DIFFERENTIAL 2022-01-22 15:43:00 Gil Aguirre [facility] er Center COMPLETE BLOOD COUNT W/ 2022-01-15 14:40:18 Gil Aguirre [facility] DIFFERENTIAL [facility] er Center Results CBC 2022-01-15 14:40:18 Gil Aguirre o [facility] er Center MANUAL DIFFERENTIAL 2022-01-15 14:40:18 Gil Aguirre [facility] ty of [facility] er Center COMPLETE BLOOD COUNT W/ 2022-01-02 18:18:24 Gil Aguirre [facility] [place] DIFFERENTIAL [facility] Can er Center Results CBC 2022-01-02 18:18:24 Gil Aguirre [place] [facility] er Center MANUAL DIFFERENTIAL 2022-01-02 18:18:24 Gil [facility]re [facility] er Center COMPLETE BLOOD COUNT W/ 2021-12-26 15:11:00 Gil Aguirre [facility] [place] DIFFERENTIAL [facility] er Center ASPARTATE AMINOTRANSFERASE 2021-12-26 15:11:00 [facility] ALANINE AMINOTRANSFERASE 2021-12-26 15:11:00 Gil Aguirre [facility] versity of [facility] er Center ALKALINE PHOSPHATASE 2021-12-26 15:11:00 Gil Aguirre [facility] er Center BILIRUBIN TOTAL 2021-12-26 15:11:00 Gil Aguirre [place] [facility] er Center Results CBC 2021-12-26 15:11:00 Gil Aguirre [facility] er Center MANUAL DIFFERENTIAL 2021-12-26 15:11:00 Gil Aguirre [facility] er Center COMPLETE BLOOD COUNT W/ 2021-12-19 17:56:00 Gil Aguirre [facility] [place] DIFFERENTIAL [facility] er Center Results CBC 2021-12-19 17:56:00 Gil Aguirre [place] [facility] Can er Center MANUAL DIFFERENTIAL 2021-12-19 17:56:00 Gil Aguirre [facility] ty of [facility] er Center COMPLETE BLOOD COUNT W/ 2021-12-12 19:00:00 Gil Aguirre [facility] [place] DIFFERENTIAL [facility] er Center Results CBC 2021-12-12 19:00:00 Gil Aguirre [facility] er Center MANUAL DIFFERENTIAL 2021-12-12 19:00:00 Gil Aguirre [facility] Center COMPLETE BLOOD COUNT W/ 2021-12-05 15:35:00 Gil Aguirre [facility] DIFFERENTIAL [facility] er Center Results CBC 2021-12-05 15:35:00 [facility] Center MANUAL DIFFERENTIAL 2021-12-05 15:35:00 Gil Aguirre [facility] Center COMPLETE BLOOD COUNT W/ 2021-11-28 18:03:00 Cain Lynda [facility] DIFFERENTIAL [facility] er Center Results CBC 2021-11-28 18:03:00 Cain Lynda [facility] Center MANUAL DIFFERENTIAL 2021-11-28 18:03:00 Lynda Barlow [facility] Center COMPLETE BLOOD COUNT W/ 2021-11-21 13:07:00 Cain Lynda [facility] DIFFERENTIAL [facility] Center Results CBC 2021-11-21 13:07:00 Cain Lynda [facility] er Center MANUAL DIFFERENTIAL 2021-11-21 13:07:00 Lynda Barlow [facility] Center COMPLETE BLOOD COUNT W/ 2021-11-14 16:55:00 Risa Aguilera [facility] DIFFERENTIAL [facility] Center ASPARTATE AMINOTRANSFERASE 2021-11-14 16:55:[address] [facility] [address] ALANINE AMINOTRANSFERASE 2021-11-14 16:55:[address] [facility] ALKALINE PHOSPHATASE 2021-11-14 16:55:00 Risa Aguilera [facility] er Center BILIRUBIN TOTAL 2021-11-14 16:55:00 Risa Aguilera [facility] er Center Results CBC 2021-11-14 16:55:00 Risa Aguilera [facility] er Center MANUAL DIFFERENTIAL 2021-11-14 16:55:00 Risa Aguilera [facility] IR FL PORT PLACEMENT 2021-11-14 14:55:[address] [facility] MRI ABDOMEN W WO CONTRAST 2021-11-10 18:38:00 Risa [facility] COMPLETE BLOOD COUNT W/ 2021-11-10 16:10:43 Risa Aguilera [facility] DIFFERENTIAL [facility] COMPREHENSIVE METABOLIC 2021-11-10 16:10:43 Risa Aguilera [facility] PANEL [facility] CANCER ANTIGEN 15-3 2021-11-10 16:10:[address] [facility] PROTHROMBIN TIME 2021-11-10 16:10:43 Sylvester Beverly [facility] GLUCOSE, RANDOM 2021-11-10 16:10:43 Nazia Boudreaux [facility] TYPE AND SCREEN 2021-11-10 16:10:43 Janusz [facility] Results CBC 2021-11-10 16:10:43 Risa Aguilera [facility] MANUAL DIFFERENTIAL 2021-11-10 16:10:[address] [facility] BLOOD UREA NITROGEN 2021-11-10 16:10:[address] [facility] ELECTROLYTE PANEL 2021-11-10 16:10:43 Risa Aguilera [facility] SERUM CREATININE 2021-11-10 16:10:43 Risa Aguilera [facility] .GLOMERULAR FILTRATION RATE 2021-11-10 16:10:43 Risa Aguilera [facility] CALCIUM LEVEL TOTAL 2021-11-10 16:10:[address] [facility] ALBUMIN LEVEL 2021-11-10 16:10:43 Risa Aguilera [facility] ALKALINE PHOSPHATASE 2021-11-10 16:10:[address] [facility] ALANINE AMINOTRANSFERASE 2021-11-10 16:10:43 Risa Aguilera [facility] ASPARTATE AMINOTRANSFERASE 2021-11-10 16:10:43 Risa Aguilera [facility] TOTAL PROTEIN 2021-11-10 16:10:43 Risa Aguilera [place] [facility] FRACTIONATED BILIRUBIN 2021-11-10 16:10:43 Risa Aguilera [facility] ABORH 2021-11-10 16:10:43 Nazia Boudreaux [facility] ANTIBODY SCREEN 2021-11-10 16:10:43 Nazia Boudreaux [facility] CLOT EXPIRATION DATE 2021-11-10 16:10:43 Nazia Boudreaux [facility] TMP INTERPRETATION ANTIBODY 2021-11-10 16:10:43 Karson Boudreaux [facility] SCREEN NEGATIVE [facility] CONFIRM ABORH TYPE 2021-11-10 16:06:54 Risa Aguilera [facility] COVID-19 (SARS-COV-2) 2021-11-10 15:54:00 Nazia Boudreaux [facility] PCR-ASYMPTOMATIC [facility] ECHOCARDIOGRAM 2D COMPLETE 2021-11-03 19:28:49 Misty Cardoza U [facility] EKG, 12-LEAD (SCHEDULED) 2021-11-03 00:00:00 Misty Cardoza [facility] NM BONE SCAN WHOLE BODY 2021-11-02 14:40:00 Evonne Carlisle [facility] CT CHEST ABDOMEN PELVIS W WO 2021-11-02 13:42:00 Maylin [facility] CONTRAST [facility] POC CREATININE 2021-11-02 12:27:00 Maylin [facility] MAMMO POST PROCEDURE RIGHT 2021-10-26 18:50:35 Maylin, [facility] Lisa CLAY [facility] er Center US BREAST COMPLETE BILATERAL 2021-10-26 18:42:00 [facility] er Center US CHEST 2021-10-26 18:42:00 Maylin, [facility] US HEAD NECK SOFT TISSUE 2021-10-26 18:42:00 Maylin, [facility] [place] Lisa CLAY [facility] US GUIDED AXILLARY LYMPH 2021-10-26 18:42:00 Maylin, [facility] [place] NODE FNA RIGHT Ilsa MD [facility] US GUIDED AXILLARY CLIP 2021-10-26 18:42:00 Maylin, Uni [facility] [place] PLACEMENT RIGHT [place] [facility] CYTOLOGY IMAGE-GUIDED FNA 2021-10-26 17:30:00 Maylin, [facility] [place] INTERPRETATION Lisa CLAY [facility] MAMMO DIGITAL DIAGNOSTIC 2021-10-26 16:22:00 Maylin, Un [facility] [place] BILATERAL W HOWARD Lisa MD [facility] PATHOLOGY OUTSIDE 2021-10-03 00:00:00 Michael Tirado [facility] INTERPRETATION [facility] OSI MAMMO BILATERAL 2021-09-06 16:03:[address] [facility] Remedios Moore MD [facility] Partial Mastectomy [facility] Procedure on Knee [facility] Repair of Hip [facility] Plan of Care Planned Activity Planned Date Details Comments Source Future Scheduled 2022-12-12 COVID-19 Vaccination Uni [facility] [place] Test 10:21:24 (#1) [code = JOSE-Alexander [facility] Center Future Scheduled 2022-03-13 COVID-19 Vaccination [facility] [place] Test 11:54:24 (#1) [code = BRIGIDAID-Alexander CLAY [facility] (#1)] Center Future Scheduled 2022-01-09 COVID-19 Vaccination Uni [facility] Test 07:58:01 (#1) [code = COVID-19 MD [facility] Vaccination (#1)] Center Encounters Start End Encounter Admission Attending Care Care Encounter Source Date/Time Date/Time Type Type Clinicians Facility Department ID 2022-10-02 Outpatient SYSTEM, [facility] BELLA [id number] MD 13:28:21 PROVIDER Shaheen o n 2022-08-14 Outpatient SYSTEM, [facility] MDA [id number] 09:00:10 PROVIDER Shaheen o n 2021-10-26 Outpatient SYSTEM, MDA MDA [id number] MD 09:43:27 PROVIDER Shaheen o n 2021-10-26 Outpatient SYSTEM, MDA MDA [id number] MD 08:50:15 PROVIDER Shaheen o n 2021-10-26 Outpatient SYSTEM, MDA MDA [id number] MD 08:50:15 PROVIDER Shaheen o n 2021-10-26 Outpatient SYSTEM, [facility] MDA [id number] MD 08:50:15 PROVIDER Shaheen o n 2021-10-26 Outpatient SYSTEM, [facility] MDA [id number] MD 08:45:15 PROVIDER Shaheen o n 2021-10-13 Outpatient SYSTEM, [facility] MDA [id number] MD 13:22:46 PROVIDER Shaheen o n 2020-09-02 Inpatient Elective Ioana [facility] [id number] [facility] 09:30:00 [place] [id number] 2023-01-02 2023-01-02 Outpatient R ROBLES [facility] [id number] Univers 13:30:00 13:30:00 [facility] 2022-12-11 2022-12-11 [facility] [id number] Univers 00:00:00 00:00:00 Jose LAUGHLIN [id number] chip [facility] 4.2.7.2.686 David COLLADO [id number] [address] 2022-12-05 2022-12-05 Outpatient [facility] [id number] Univers 12:57:24 13:42:00 PATRICIA [facility] [place] [facility] 2022-11-21 2022-11-21 Telephone Jackie Deal 1.2.840.1 [id number] Univers 00:00:00 00:00:00 B 27705.1.1 ity of 3.412.2.7 [place] .3.692840 MD Retana8 [facility] 2022-11-20 2022-11-20 Follow-Up Danisha Arias 1.2.840.1 [id number] [facility] 11:40:00 12:40:38 Risa Aguilera 53717.1.1 ity of 3.412.2.7 [place] .3.616531 MD Retana8 [facility] 2022-11-20 2022-11-20 Outpatient OMAR ARIAS BELLA BLANCO [id number] 11:00:57 12:40:38 DANISHA arizmendi 2022-11-20 2022-11-20 Outpatient RISA OQUENDO MDA MDA [id number] 11:56:52 12:01:41 Shaheen arizmendi 2022-11-20 2022-11-20 Outpatient OMAR ARIAS BELLA MDA [id number] 10:41:11 10:53:07 DANISHA arizmendi 2022-11-20 2022-11-20 Travel 1.2.840.1 [id number] Univers 00:00:00 00:00:00 43234.1.1 350.1.13.41 ity of 3.412.2.7 2.2.7.3.698 Brendan adams .3.628804 084.8 MD Retana8 [facility] 2022-11-13 2022-11-13 Outpatient R YOLETTE [facility] [id number] Univers 15:40:00 16:02:49 PATRICIA itjuana of [facility] 2022-11-13 2022-11-13 Office [facility] [id number] Univers 15:40:00 16:02:49 Visit Patricia LAUGHLIN [id number] i ty of [facility] 4.2.7.2.686 David howard PROFESSRAUDEL [id number] Nm dical NAL 059 [facility] 2022-11-13 2022-11-13 Orders Doctor CARLA [id number] Univers 00:00:00 00:00:00 Only Unassigned, ROSA M [id number] it[facility] 4.2.7.2.686 Nirmal as [id number] [address] 2022-11-09 2022-11-09 Telephone [facility] [id number] Univers 00:00:00 00:00:00 Lailasonyachelsy LAUGHLIN 350.1.13.10 [place] [id number] Nm dical NAL 9 [facility] 2022-11-06 2022-11-06 Telephone [facility] [id number] Univers 00:00:00 00:00:00 Lailasonyachelsy HOODFERDINAND 350.1.13.10 [place].686 [place] [id number] Nm dical NAL [address] [place] [address] 2022-10-24 2022-10-24 Orders Risa Aguilera 1.2.840.1 [id number] Univers 00:00:00 00:00:00 Only Ute 62841.1.1 ity of 3.412.2.7 [place] .3.182306 .8 [facility] 2022-10-22 2022-10-22 Outpatient OMAR ARIAS MDA MDA [id number] 09:53:21 12:39:07 DANISHA raizmendi 2022-10-22 2022-10-22 Follow-Up Hugo 1.2.840.1 [id number] Univers 09:20:00 12:39:07 Danisha 92837.1.1 ity of 3.412.2.7 [place] .3.921933 MD Retana8 [facility] 2022-10-22 2022-10-22 Outpatient RISA OQUENDO MDA, MDA [id number] 09:13:42 09:47:12 Shaheen arizmendi 2022-10-22 2022-10-22 Travel 1.2.840.1 [id number] Univers 00:00:00 00:00:00 60265.1.1 350.1.13.41 ity of 3.412.2.[place]3.698 [place] .3.067806 084.8 .8 [facility] 2022-10-22 2022-10-22 Orders Doctor CARLA 1.2.840.114 [id number] Univers 00:00:00 00:00:00 Only Unassigned, ROSA M 350.1.13.10 ity of [facility] 4.2.7.2.686 Nirmal as [id number] [place] [address] [place] 2022-10-18 2022-10-18 Reftee Julian [facility] 1.2.840.114 [id number] Univers 00:00:00 00:00:00 Jose [place] 350.1.13.10 ity [place] [id number] Nm dical NAL 0[address] Branch [facility] 2022-10-01 2022-10-01 Telephone Jackie Deal 1.2.840.1 [id number] Univers 00:00:00 00:00:00 B 14861.1.1 ity of 3.412.2.7 [place] .3.776949 MD Retana8 [facility] 2022-09-20 2022-09-20 Outpatient Yan_W [facility] [id number] [place] 00:00:00 00:00:00 0509 Medical Group 2022-09-19 2022-09-19 [facility] [id number] [place] 00:00:00 00:00:00 0329 da [facility] 2022-09-19 2022-09-19 [facility] [id number] [place] 00:00:00 00:00:00 0330 Medical Group 2022-09-19 2022-09-19 OLEG [place] - [id number] [place] 00:00:00 00:00:00 MD: [address] [facility] [place] [employer] [address], [facility], Otolaryngol [place] [id number] , Ph. 2022-09-17 2022-09-17 Outpatient OMAR ARIAS MDA [facility] [id number] 08:19:14 09:11:17 DANISHA arizmendi 2022-09-17 2022-09-17 Follow-Up Hugo 1.2.840.1 [id number] [facility] 08:00:00 09:11:17 Danisha 60655.1.1 ity of 3.412.2.7 [place] .3.232050 .8 [facility] 2022-09-17 2022-09-17 Travel 1.2.840.1 [id number] [id number] Univers 00:00:00 00:00:00 21551.1.1 350.1.13.41 ity of 3.412.2.7 [place].3.698 [place] .3.440571 084.8 .8 [facility] 2022-09-13 2022-09-13 Outpatient [facility] [id number] [place] 17:03:00 17:03:00 [id number] 2022-09-03 2022-09-03 Outpatient R ELIEL [facility] [id number] Univers 15:20:00 16:09:57 JOSE saunders o f [facility] 2022-09-03 2022-09-03 Office Eliel [facility] 1.2.840.114 [id number] Univers 15:20:00 16:09:57 Visit Jose LAUGHLIN 350.1.13.10 ity of [place] 4.2.7.2.686 David COLLADO [id number] Nm dical NAL 059 Branch [facility] 2022-09-03 2022-09-03 Orders Doctor CARLA 1.2.840.114 [id number] Univers 00:00:00 00:00:00 Only Unassigned, ROSA M 350.1.13.10 ity of [place] [facility] 4.2.7.2.686 Nirmal as [id number] [place] [address] Branch 2022-08-30 2022-08-30 Outpatient OMAR PLAZA MDA BELLA [id number] 09:30:20 09:30:20 KERRY arizmendi 2022-08-23 2022-08-23 Claude HsuKerry weinbergJorge Teresa 1.2.840.1 [id number] [facility] 13:00:00 13:30:00 Florinda Tom 40828.1.1 ity of 3.412.2.7 [place] .3.748744 MD Retana8 [facility] 2022-08-20 2022-08-20 Risa Rosa 1.2.840.1 [id number] Univers 00:00:00 00:00:00 Only B 32237.1.1 ity of 3.412.2.7 [place] .3.083413 .8 [facility] 2022-08-16 2022-08-16 Jackie López 1.2.840.1 [id number] Univers 00:00:00 00:00:00 B 63724.1.1 ity of 3.412.2.7 [place] .3.534625 MD Maria [facility] 2022-08-13 2022-08-13 Outpatient Yan_W [facility] [id number] [place] 00:00:00 00:00:00 0220 [facility] 2022-08-13 2022-08-13 Outpatient Yan_W MM MM[facility] [id number] 023 [place] 00:00:00 00:00:00 0222 [facility] 2022-08-13 2022-08-13 Outpatient Yan[facility]W [facility] [id number] 023 [place] 00:00:00 00:00:00 0328 Medical Group 2022-08-09 2022-08-09 Risa Rosa 1.2.840.1 [id number] Univers 00:00:00 00:00:00 Only B 47518.1.1 ity of 3.412.2.7 [place] .3.326504 MD Retana8 [facility] 2022-08-03 2022-08-03 Outpatient OMAR DURON [facility] [id number] [place] 03:17:00 03:17:00 DEREK -[id number] [facility] 2022-08-02 2022-08-02 Orders Risa Aguilera 1.2.840.1 [id number] Univers 00:00:00 00:00:00 Only B 47368.1.1 ity of 3.412.2.7 [place] .3.197207 .8 [facility] 2022-07-27 2022-07-27 Orders Doctor AGUIRRE 1.2.840.114 [id number] Univers 00:00:00 00:00:00 Only Unassigned, ROSA M 350.1.13.10 ity of [facility] 4.2.7.2.686 Nirmal as [id number] [place] [address] Branch 2022-07-25 2022-07-25 Refill Eliel [facility] 1.2.840.114 [id number] Univers 00:00:00 00:00:00 [facility] 350.1.13.10 [place] of [place] PROF[place] [id number] Nm dical [facility] 059 [facility] 2022-07-23 2022-07-23 Outpatient OMAR ARIAS MDA [facility] [id number] 10:08:25 10:37:51 DANISHA arizmendi 2022-07-23 2022-07-23 Follow-Up Hugo 1.2.840.1 [id number] [facility] 10:00:00 10:37:51 Danisha 81124.1.1 ity of 3.412.2.7 [place] .3.217605 MD Retana8 [facility] 2022-07-23 2022-07-23 Travel 1.2.840.1 1.2.864.825 0744 [id number] Univers 00:00:00 00:00:00 75737.1.1 350.1.13.41 ity of 3.412.2.7 [place].3.698 [place] .3.114652 084.8 MD Maria [facility] 2022-06-29 2022-06-29 Telephone Jackie Deal 1.2.840.1 [id number] Univers 00:00:00 00:00:00 B 01558.1.1 ity of 3.412.2.7 [place] .3.244031 MD Maria [facility] 2022-06-20 2022-06-20 Clinical Lisa Carlisle 1.2.840.1 [id number] [facility] 11:00:00 11:30:00 Support Skye Ryder 15725.1.1 ity of 3.412.2.7 [place] .3.872968 MD Maria [facility] 2022-06-20 2022-06-20 Outpatient PAOLA [facility] [id number] [place] 11:03:42 11:03:42 [place] An derso n 2022-06-20 2022-06-20 Orders Risa Aguilera 1.2.840.1 [id number] Univers 00:00:00 00:00:00 Only B 66035.1.1 ity of 3.412.2.7 [place] .3.600101 MD Maria [facility] 2022-06-20 2022-06-20 Telephone Jackie Deal 1.2.840.1 [id number] Univers 00:00:00 00:00:00 B 09312.1.1 ity of 3.412.2.7 [place] .3.874858 MD Maria [facility] 2022-06-20 2022-06-20 Travel 1.2.840.1 1.2.232.960 2966 [id number] Univers 00:00:00 00:00:00 01450.1.1 350.1.13.41 ity of 3.412.2.7 2.[place].7.3.698 [place] .3.488864 084.8 MD Retana8 [facility] 2022-06-19 2022-06-19 Orders Paola 1.2.840.1 [id number] Univers 00:00:00 00:00:00 Only Lisa de la vega 92090.1.1 ity of 3.412.2.7 [place] .3.239438 MD Retana8 [facility] 2022-06-14 2022-06-14 Clinical Lisa Carlisle 1.2.840.1 [id number] Univers 14:30:00 15:00:00 Support Charmaine Mcdowell 24411.1.1 ity of 3.412.2.7 [place] .3.242239 MD Retana8 [facility] 2022-06-14 2022-06-14 Outpatient EL PAOLA [facility] MDA [id number] [place] 14:18:19 14:18:19 LISA DE [place] An [facility] 2022-06-14 2022-06-14 Travel 1.2.840.1 1.2.449.438 6137 [id number] Univers 00:00:00 00:00:00 60353.1.1 350.1.13.41 ity of 3.412.2.7 2.[place].7.3.698 [place] .3.531552 084.8 MD Retana8 [facility] 2022-06-13 2022-06-13 Carley Guevara 1.2.840.1 [id number] Univers 00:00:00 00:00:00 Only Lisa de la vega 78506.1.1 ity of 3.412.2.7 [place] .3.147524 MD Retana8 [facility] 2022-06-08 2022-06-08 Office Shamekatti, 1.2.840.1 [id number] Univers 14:30:00 15:47:49 Visit Kerry Whittaker 09392.1.1 it y of [place] 3.412.2.7 [place] .3.279808 MD Retana8 [facility] 2022-06-08 2022-06-08 Outpatient OMAR PLAZA MDA MDA [id number] 14:26:43 15:47:49 KERRY arizmendi 2022-06-08 2022-06-08 Orders Paola 1.2.840.1 [id number] Univers 00:00:00 00:00:00 Only Lisa de la vega 83595.1.1 ity of 3.412.2.7 [place] .3.178648 .8 [facility] 2022-06-08 2022-06-08 Travel 1.2.840.1 1.2.779.759 2571 [id number] Univers 00:00:00 00:00:00 75049.1.1 350.1.13.41 ity of 3.412.2.7 2.[place]7.3.698 [place] .3.040887 084.8 .8 [facility] 2022-06-05 2022-06-05 Telemedici Anastasia, 1.2.840.1 [id number] [facility] 09:00:00 09:15:00 ne Dianna 86267.1.1 ity of 3.412.2.7 [place] .3.087473 MD Retana8 [facility] 2022-06-05 2022-06-05 Outpatient OMAR CHAPPELL BELLA MDA [id number] 08:20:57 08:20:57 DIANNA arizmendi 2022-06-05 2022-06-05 Telephone Hugo, 1.2.840.1 [id number] [facility] 00:00:00 00:00:00 Danisha 20889.1.1 ity of 3.412.2.7 [place] .3.514121 MD Retana8 [facility] 2022-06-01 2022-06-01 Outpatient YOAV PATTON MDA MDA [id number] 09:31:06 10:00:42 Shaheen arizmendi 2022-06-01 2022-06-01 Office Yoav Valdez 1.2.840.1 [id number] [facility] 09:15:00 10:00:42 Visit [place] 28218.1.1 ity of 3.412.2.7 [place] .3.628266 MD Retana8 [facility] 2022-06-01 2022-06-01 Travel 1.2.840.1 1.2.260.014 6062 [id number] Univers 00:00:00 00:00:00 64310.1.1 350.1.13.41 ity of 3.412.2.7 2.[place]7.3.698 [place] .3.147756 084.8 MD Retana8 [facility] 2022-05-28 2022-05-28 Orders Redd Gross 1.2.840.1 [id number] Univers 00:00:00 00:00:00 Only Isami 63997.1.1 it[place] of [place] .3.772331 MD Retana8 [facility] 2022-05-28 2022-05-28 Telephone Redd Gross 1.2.840.1 [id number] Univers 00:00:00 00:00:00 Isami 11738.1.1 it[place] of [place] .3.726000 MD Maria [facility] 2022-05-28 2022-05-28 Nurse Dolores, 1.2.840.1 [id number] Univers 00:00:00 00:00:00 Triage Parul 27107.1.1 ity of [place] 3.412.2.7 Nirmal as .3.549017 MD Retana8 [facility] 2022-05-28 2022-05-28 Telephone Mikal, 1.2.840.1 [id number] Univers 00:00:00 00:00:00 Pietro A 57270.1.1 ity of 3.412.2.7 [place] .3.092003 MD Maria [facility] 2022-05-27 2022-05-27 Telephone Robe, 1.2.840.1 [id number] Univers 00:00:00 00:00:00 Harini Hunt 82753.1.1 ity of 3.412.2.7 [place] .3.681055 MD Retana8 [facility] 2022-05-26 2022-05-26 Nurse Kath, 1.2.840.1 [id number] Univers 00:00:00 00:00:00 Triage Tomasz 05326.1.1 ity of 3.412.2.7 [place] .3.325662 MD Retana8 [facility] 2022-05-24 2022-05-25 [facility] Edson Breast 1 [id number] 11:30:00 13:44:00 KERRY arizmendi 2022-05-24 2022-05-25 [facility], 1.2.840.1 [id number] [facility] 11:30:00 13:44:00 Encounter Kerry Whittaker 18344.1.1 ity of [place] 3.412.2.7 [place] .3.039616 MD Retana8 [facility] 2022-05-25 2022-05-25 Nurse Kamran, 1.2.840.1 [id number] [facility] 00:00:00 00:00:00 Triage Jackeline Jimenez 29810.1.1 ity of 3.412.2.7 [place] .3.771365 MD Retana8 [facility] 2022-05-24 2022-05-24 Outpatient [facility] MDA [id number] 12:00:39 23:59:00 LISA [place] 2022-05-24 2022-05-24 [facility] 1.2.840.1 [id number] 1 [id number] Univers 12:00:39 23:59:00 Encounter Lisa de la vega 99512.1.1 ity of 3.412.2.7 [place] .3.899949 MD Retana8 [facility] [place] 2022-05-24 2022-05-24 [facility], 1.2.840.1 [id number] Univers 15:00:00 21:10:00 Jorge 77778.1.1 it y of [place] 3.412.2.7 [place] .3.148138 MD Retana8 [facility] 2022-05-24 2022-05-24 Anesthesia Alba Reyes 1.2.840.1 [id number] Univers 15:59:00 19:44:00 Event Melissa Geller 59374.1.1 ity of 3.412.2.7 [place] .3.118482 MD Retana8 [facility] 2022-05-24 2022-05-24 Orders Erika Daniels 1.2.840.1 [id number] Univers 00:00:00 00:00:00 Only Ella 47397.1.1 ity of 3.412.2.7 [place] .3.567067 MD Retana8 [facility] 2022-05-24 2022-05-24 Travel 1.2.840.1 1.2.820.633 2309 [id number] Univers 00:00:00 00:00:00 08617.1.1 350.1.13.41 ity of 3.412.2.7 [place]7.3.698 [place] .3.995624 084.8 MD Retana8 [facility] 2022-05-23 2022-05-23 Anesthesia Adan, 1.2.840.1 [id number] Univers 23:59:59 23:59:59 Event Kyleigh Downing 66586.1.1 it y of 3.412.2.7 [place] .3.776354 MD Retana8 [facility] 2022-05-23 2022-05-23 Outpatient OMAR GUEVARA [facility] MDA [id number] 16:01:45 16:01:45 [place] 2022-05-23 2022-05-23 Ancillary 1.2.840.1 [id number] Univers 15:45:00 16:00:00 Procedure 10187.1.1 it y of 3.412.2.7 [place] .3.456543 MD Retana8 [facility] 2022-05-23 2022-05-23 Ancillary Khan-Yung 1.2.840.1 [id number] [facility] 15:00:00 15:30:00 Procedure Margie de la vegasy 14770.1.1 ity of 3.412.2.7 [place] .3.234761 MD Retana8 [facility] 2022-05-23 2022-05-23 Ancillary 1.2.840.1 [id number] [facility] 13:45:00 15:30:00 Procedure 74246.1.1 it y of 3.412.2.7 [place] .3.523247 MD Retana8 [facility] 2022-05-23 2022-05-23 Outpatient EL MDA MDA [id number] MD 15:22:43 15:22:43 [facility] o 2022-05-23 2022-05-23 Outpatient EL MDA MDA [id number] MD 13:48:35 13:48:35 [facility] o 2022-05-23 2022-05-23 Outpatient EL KHAN-YUNG MDA MDA [id number] MD 12:40:22 12:40:22 [place] An derso 2022-05-23 2022-05-23 Ancillary Khan-Yung 1.2.840.1 [id number] [facility] 12:00:00 12:30:00 Procedure Margie de la vegasy 96051.1.1 ity of 3.412.2.7 [place] .3.161819 MD Retana8 [facility] 2022-05-23 2022-05-23 Outpatient EL KHAN-YUNG MDA MDA [id number] [place] 12:02:08 12:02:08 L[place] An derso n 2022-05-23 2022-05-23 Ancillary Khan-Yung 1.2.840.1 [id number] [facility] 11:00:00 11:30:00 Procedure Margie de la vegasy 72620.1.1 ity of 3.412.2.7 [place] .3.858611 MD Retana8 [facility] 2022-05-23 2022-05-23 Outpatient EL KHAN-YUNG MDA MDA [id number] 09:36:46 09:36:46 [place] 2022-05-23 2022-05-23 Consult Yoav Valdez 1.2.840.1 [id number] [facility] 08:45:00 09:31:38 Victor M 33854.1.1 ity of 3.412.2.7 [place] .3.988945 MD Retana8 [facility] 2022-05-23 2022-05-23 Outpatient YOAV PATTON MDA MDA [id number] 08:36:35 09:31:38 [facility] 2022-05-23 2022-05-23 POPARDEEP LermaKhan-Yung 1.2.840.1 [id number] Univers 08:00:00 08:30:00 [facility] Lisa de la vega 91217.1.1 ity of ts 3.412.2.7 [place] .3.480202 MD Maria [facility] 2022-05-23 2022-05-23 Outpatient EL KHAN-YUNG MDA MDA [id number] 07:11:33 07:11:33 [place] 2022-05-23 2022-05-23 Orders Khan-Yung 1.2.840.1 [id number] Univers 00:00:00 00:00:00 Only Lisa de la vega 05504.1.1 ity of 3.412.2.7 [place] .3.019600 MD Maria [facility] 2022-05-23 2022-05-23 Telephone Jeremias 1.2.840.1 [id number] Univers 00:00:00 00:00:00 Charmaine F 85427.1.1 ity of 3.412.2.7 [place] .3.880220 MD Retana8 [facility] 2022-05-23 2022-05-23 Travel 1.2.840.1 1.2.358.243 4620 [id number] Univers 00:00:00 00:00:00 04002.1.1 350.1.13.41 ity of 3.412.2.7 2.2.7.3.698 [place] .3.089598 084.8 MD Retana8 [facility] 2022-05-09 2022-05-09 Orders Paola 1.2.840.1 [id number] [facility] 00:00:00 00:00:00 Only Lisa de la vega 72556.1.1 ity of 3.412.2.7 [place] .3.584467 MD Retana8 [facility] 2022-05-01 2022-05-01 Office Mela, 1.2.840.1 [id number] [facility] 13:30:00 15:30:25 Visit Kerry Whittaker 14974.1.1 it y of [place] 3.412.2.7 [place] .3.585989 MD Retana8 [facility] 2022-05-01 2022-05-01 Outpatient EL BELLA PLAZA MDA [id number] 13:22:11 15:30:25 [facility]-01 2022-05-01 [facility] 1.2.840.1 1.2.640.767 [id number] [facility] 00:00:00 00:00:00 21772.1.1 350.1.13.41 ity of 3.412.2.7 2.[place]7.3.698 [place] .3.250284 084.8 MD Maria [facility] 2022-04-27 2022-04-27 Outpatient PAOLA MDA MDA [id number] 11:27:06 11:27:06 [place] An kacyso n 2022-04-27 2022-04-27 Ancillary Paola 1.2.840.1 [id number] [facility] 10:15:00 11:15:00 Procedure Lisa de la vega 40464.1.1 ity of 3.412.2.7 [place] .3.575134 MD Retana8 [facility] 2022-04-27 2022-04-27 Outpatient EL KHANROSEMARIE MDA MDA [id number] 10:46:18 10:46:18 [place] An derso n 2022-04-27 2022-04-27 Ancillary Khan-Yung 1.2.840.1 [id number] [facility] 08:30:00 09:30:00 Procedure Lisa de la vega 14547.1.1 ity of 3.412.2.7 [place] .3.272366 MD Retana8 [facility] 2022-04-27 2022-04-27 Travel 1.2.840.1 1.2.814.977 1590 [id number] Univers 00:00:00 00:00:00 79424.1.1 350.1.13.41 ity of 3.412.2.7 2.[place].7.3.698 [place] .3.807514 084.8 MD Retana8 [facility] 2022-04-19 2022-04-19 Orders Claude, 1.2.840.1 [id number] Univers 00:00:00 00:00:00 Only Princess 67961.1.1 ity of 3.412.2.7 [place] .3.272998 MD Retana8 [facility] 2022-04-19 2022-04-19 Orders KhanRosemarie 1.2.840.1 [id number] Univers 00:00:00 00:00:00 Only Lisa de la vega 32051.1.1 ity of 3.412.2.7 [place] .3.142509 MD Retana8 [facility] 2022-04-17 2022-04-17 Risa Rose 1.2.840.1 [id number] [facility] 14:15:00 16:30:23 Dalia Tyler 55743.1.1 ity of 3.412.2.7 [place] .3.245721 MD Retana8 [facility] 2022-04-17 2022-04-17 Outpatient RISA OQUENDO MDA MDA [id number] 13:23:25 16:30:23 Shaheencolton arizmendi 2022-04-17 2022-04-17 Office Hugo, Danisha 1.2.840.1 [id number] [facility] 13:00:00 13:30:00 Visit Risa Aguilera 42157.1.1 ity of 3.412.2.7 [place] .3.529961 .8 [facility] 2022-04-17 2022-04-17 Outpatient RISA OQUENDO MDA MDA [id number] 13:16:05 13:21:49 Shaheen o ugo 2022-04-17 2022-04-17 Outpatient OMAR ARIAS MDA MDA [id number] 12:16:29 12:16:29 DANISHA Shaheencolton arizmendi 2022-04-17 2022-04-17 Outpatient RISA OQUENDO MDA MDA [id number] 11:39:20 12:10:16 [facility] 2022-04-17 2022-04-17 Orders Antionette Norman 1.2.840.1 [id number] [facility] 00:00:00 00:00:00 Only 02645.1.1 ity of 3.412.2.7 [place] .3.897509 .8 [facility] 2022-04-17 2022-04-17 Travel 1.2.840.1 1.2.861.673 5364 [id number] [facility] 00:00:00 00:00:00 47671.1.1 350.1.13.41 ity of 3.412.2.7 2.[place]7.3.698 [place] .3.048612 084.8 .8 [facility] 2022-04-03 2022-04-03 Karlie Whitmore 1.2.840.1 [id number] [facility] 12:42:58 12:42:58 Event Gladis L 22695.1.1 it y of 3.412.2.7 [place] .3.445829 MD Retana8 [facility] 2022-04-02 2022-04-02 Outpatient OMAR GUEVARA MDA MDA [id number] 09:07:52 12:53:17 [place] An tran n 2022-04-02 2022-04-02 Consult Lisa Carlisle 1.2.840.1 1 [id number] [facility] 09:00:00 12:53:17 Adam Melendez 49277.1.1 ity of 3.412.2.7 [place] .3.251256 MD Retana8 [facility] 2022-04-02 2022-04-[address], 1.2.840.1 [id number] Univers 10:00:00 12:53:12 Appointmen Kerry Whittaker 79129.1.1 ity of [place] 3.412.2.7 [place] .3.288465 MD Retana8 [facility] 2022-04-02 2022-04-02 Outpatient OMAR PLAZA, [facility] MDA [id number] 09:07:09 12:53:12 KERRY martinez 2022-04-02 2022-04-02 Carley Felipe, 1.2.840.1 [id number] Univers 00:00:00 00:00:00 Only Sebas Downing 61827.1.1 ity of 3.412.2.7 [place] .3.379467 MD Retana8 [facility] 2022-04-02 2022-04-02 Travel 1.2.840.1 1.2.216.526 1789 [id number] Univers 00:00:00 00:00:00 79123.1.1 350.1.13.41 ity of 3.412.2.7 2.2.7.3.698 [place] .3.006719 084.8 MD Retana8 [facility] 2022-03-27 2022-03-27 Infusion Risa Aguilera 1.2.840.1 [id number] Univers 14:15:00 15:56:26 Korin Garzon 40087.1.1 ity of 3.412.2.7 [place] .3.494552 MD Retana8 [facility] 2022-03-27 2022-03-27 Outpatient RISA OQUENDO MDA MDA [id number] 13:42:36 15:56:26 Shaheencolton arizmendi 2022-03-27 2022-03-27 Outpatient OMAR ARIAS MDA MDA [id number] 13:41:10 13:43:53 DANISHA arizmendi 2022-03-27 2022-03-27 Office Hugo, 1.2.840.1 [id number] [facility] 13:20:00 13:40:00 Visit Danisha 33099.1.1 ity of 3.412.2.7 [place] .3.973912 MD Retana8 [facility] 2022-03-27 2022-03-27 Outpatient OMAR ARIAS [facility] MDA [id number] 12:33:16 12:33:16 DANISHA arizmendi 2022-03-27 2022-03-27 Outpatient RISA OQUENDO [facility] MDA [id number] 12:09:44 12:27:39 Shaheen arizmendi 2022-03-27 2022-03-27 [facility] 1.2.840.1 1.2.614.431 [id number] [id number] [facility] 00:00:00 00:00:00 82818.1.1 350.1.13.41 ity of 3.412.2.7 2.2.7.3.698 [place] .3.450320 084.8 MD Retana8 [facility] 2022-03-07 2022-03-07 Orders Khan-Yung 1.2.840.1 [id number] Univers 00:00:00 00:00:00 Only eliceoMargie maksy 77171.1.1 ity of 3.412.2.7 [place] .3.702042 MD Retana8 [facility] 2022-03-07 2022-03-07 Orders Khan-Yung 1.2.840.1 [id number] Univers 00:00:00 00:00:00 Only eliceo, Lisa 23341.1.1 ity of 3.412.2.7 [place] .3.235245Hal Retana8 [facility] 2022-03-06 2022-03-06 Infusion OMAR Arias Danisha 1.2.840.1 [id number] Univers 15:15:00 17:01:34 Marta Garzonjatinder Messina 26164.1.1 ity of 3.412.2.7 [place] .3.415443 MD Retana8 [facility] 2022-03-06 2022-03-06 Infusion HugoDanisha 1.2.840.1 [id number] Univers 15:15:00 17:01:34 Korin Garzon Siddharth 93171.1.1 ity of 3.412.2.7 [place] .3.807011 MD Retana8 [facility] 2022-03-06 2022-03-06 Office OMAR AriasDanisha 1.2.840.1 [id number] Univers 14:00:00 14:01:10 Visit Risa Aguilera 81195.1.1 ity of 3.412.2.7 [place] .3.066575 MD Maria [facility] 2022-03-06 2022-03-06 Office Danisha Arias 1.2.840.1 [id number] Univers 14:00:00 14:01:10 Visit Risa Aguilera 95589.1.1 ity of 3.412.2.7 [place] .3.824278 MD Maria [facility] 2022-03-06 2022-03-06 Outpatient OMAR ARIAS MDA [facility] [id number] 13:07:28 13:25:29 DANISHA [facility] 2022-03-06 2022-03-06 Orders Shelby Arias.2.840.1 [id number] Univers 00:00:00 00:00:00 Only Danisha 00242.1.1 ity of 3.412.2.7 [place] .3.022953 MD [facility] 2022-03-06 2022-03-06 Orders Risa Aguilera 1.2.840.1 [id number] Univers 00:00:00 00:00:00 Only B 12677.1.1 ity of 3.412.2.7 [place] .3.973820 MD [facility] 2022-03-06 2022-03-06 Travel 1.2.840.1 1.2.285.100 2277 [id number] Univers 00:00:00 00:00:00 48223.1.1 350.1.13.41 ity of 3.412.2.7 [place].3.698 [place] .3.328606 084.8 MD [facility] 2022-03-06 2022-03-06 Orders Hugo, 1.2.840.1 [id number] Univers 00:00:00 00:00:00 Only Danisha 73860.1.1 ity of 3.412.2.7 [place] .3.647908 MD [facility] 2022-03-06 2022-03-06 Orders Risa Aguilera 1.2.840.1 [id number] Univers 00:00:00 00:00:00 Only B 73603.1.1 ity of 3.412.2.7 [place] .3.588059 MD [facility] 2022-03-06 2022-03-06 Travel 1.2.840.1 1.2.352.553 8776 [id number] Univers 00:00:00 00:00:00 90313.1.1 350.1.13.41 ity of 3.412.2.7 2.[place]7.3.698 [place] .3.301365 084.8 MD [facility] 2022-02-22 2022-02-22 Orders Cachorro 1.2.840.1 [id number] Univers 00:00:00 00:00:00 Only Kasia 35137.1.1 ity of 3.412.2.7 [place] .3.747920 MD [facility] 2022-02-22 2022-02-22 Orders Paola 1.2.840.1 [id number] 10 [id number] Univers 00:00:00 00:00:00 Only Lisa de la vega 82848.1.1 ity of 3.412.2.7 [place] .3.312061 MD [facility]8 [facility] 2022-02-22 2022-02-22 Orders Khan-Yung 1.2.840.1 [id number] Univers 00:00:00 00:00:00 Only Margie de la vegasy 81931.1.1 ity of 3.412.2.7 [place] .3.664515 MD [facility]8 [facility] 2022-02-22 2022-02-22 Orders Cachorro 1.2.840.1 [id number] Univers 00:00:00 00:00:00 Only Kasia 34165.1.1 ity of 3.412.2.7 [place] .3.801837 MD [facility]8 [facility] 2022-02-22 2022-02-22 Orders Khan-Yung 1.2.840.1 [id number] 10 [id number] Univers 00:00:00 00:00:00 Only Margie de la vegasy 07277.1.1 ity of 3.412.2.7 [place] .3.036177 MD [facility]8 [facility] 2022-02-22 2022-02-22 Orders Khan-Yung 1.2.840.1 [id number] 10 [id number] Univers 00:00:00 00:00:00 Only Lisa de la vega 08396.1.1 ity of 3.412.2.7 [place] .3.084984 MD [facility]8 [facility] 2022-02-20 2022-02-20 Ancillary Risa Oquendo 1.2.840.1 [id number] 1 [id number] Univers 13:00:00 14:15:00 Procedure B 87317.1.1 it y of 3.412.2.7 [place] .3.071547 MD [facility] 2022-02-20 2022-02-20 Ancillary Risa Aguilera 1.2.840.1 [id number] 1 [id number] Univers 13:00:00 14:15:00 Procedure B 98208.1.1 it y of 3.412.2.7 [place] .3.253385 MD [facility] 2022-02-20 2022-02-20 Ancillary Risa Oquendo 1.2.840.1 [id number] 1 [id number] Univers 13:30:00 13:45:00 Procedure B 10973.1.1 it y of 3.412.2.7 [place] .3.894121 MD [facility] 2022-02-20 2022-02-20 Ancillary Risa Aguilera 1.2.840.1 [id number] 1 [id number] Univers 13:30:00 13:45:00 Procedure B 75918.1.1 it y of 3.412.2.7 [place] .3.044434 MD [facility] 2022-02-20 2022-02-20 Travel 1.2.840.1 1.2.937.750 0239 [id number] Univers 00:00:00 00:00:00 12166.1.1 350.1.13.41 ity of 3.412.2.7 2.[place]7.3.698 [place] .3.411183 084.Adriel [facility] 2022-02-20 2022-02-20 Travel 1.2.840.1 1.2.015.150 0767 [id number] Univers 00:00:00 00:00:00 99423.1.1 350.1.13.41 ity of 3.412.2.7 2.2.7.3.698 [place] .3.256901 084.8 MD [facility] [facility]-16 2022-02-16 Telephone Hugo, 1.2.840.1 [id number] [id number] [facility] 00:00:00 00:00:00 Danisha 52423.1.1 ity of 3.412.2.7 [place] .3.004305 MD [facility] 2022-02-16 2022-02-16 Telephone Hguo, 1.2.840.1 [id number] 1096 [id number] [facility] 00:00:00 00:00:00 Danisha 97961.1.1 ity of 3.412.2.7 [place] .3.487002 MD [facility] 2022-02-15 2022-02-15 Orders Khan-Yung 1.2.840.1 [id number] 10 [id number] [facility] 00:00:00 00:00:00 Only Lisa de la vega 30634.1.1 ity of 3.412.2.7 [place] .3.364890 MD [facility] 2022-02-15 2022-02-15 Orders Khan-Yung 1.2.840.1 [id number] 10 [id number] [facility] 00:00:00 00:00:00 Only Lisa de la vega 10391.1.1 ity of 3.412.2.7 [place] .3.698151 MD [facility] 2022-02-14 2022-02-14 Consult EL Anastasia, 1.2.840.1 [id number] [facility] 09:00:00 10:10:29 Dianna 14206.1.1 ity of 3.412.2.7 [place] .3.085304 MD [facility] 2022-02-14 2022-02-14 Consult Anastasia, 1.2.840.1 [id number] Univers 09:00:00 10:10:29 Dianna 29315.1.1 ity of 3.412.2.7 [place] .3.605115 MD [facility] 2022-02-14 2022-02-14 Travel 1.2.840.1 1.2.190.136 2067 [id number] [facility] 00:00:00 00:00:00 87606.1.1 350.1.13.41 ity of 3.412.2.7 [place].3.698 [place]3.739[place] 084.8 MD [facility]8 [facility] 2022-02-14 2022-02-14 Travel 1.2.840.1 1.2.809.488 9458 [id number] [facility] 00:00:00 00:00:00 61951.1.1 350.1.13.41 ity of 3.412.2.7 [place]7.3.698 [place] .3.115135 084.8 .8 [facility] 2022-02-13 2022-02-13 Infusion Risa Oquendo 1.2.840.1 [id number] [facility] 15:00:00 17:00:54 Samanta Rolle 03697.1.1 ity of 3.412.2.7 [place] .3.621228 MD [facility] 2022-02-13 2022-02-13 Infusion Risa Aguilera 1.2.840.1 [id number] [facility] 15:00:00 17:00:54 Samanta Rolle 98302.1.1 ity of 3.412.2.7 [place] .3.115861 MD [facility] 2022-02-13 2022-02-13 Office OMAR Arias, 1.2.840.1 [id number] [facility] 14:00:00 14:15:04 Visit Danisha 25815.1.1 ity of 3.412.2.7 [place] .3.180534 MD [facility] 2022-02-13 2022-02-13 Office Hugo, 1.2.840.1 [id number] [facility] 14:00:00 14:15:04 Visit Danisha 47079.1.1 ity of 3.412.2.7 [place] .3.681239 MD [facility]8 [facility] 2022-02-13 2022-02-13 Outpatient RISA OQUENDO [facility] [id number] 13:00:04 13:12:03 [facility] 2022-02-13 2022-02-13 Risa Rosa 1.2.840.1 [id number] [facility] 00:00:00 00:00:00 Only B 21860.1.1 ity of 3.412.2.7 [place] .3.024166 MD [facility] 2022-02-13 2022-02-13 Travel 1.2.840.1 1.2.017.123 4482 [id number] [facility] 00:00:00 00:00:00 29608.1.1 350.1.13.41 ity of 3.412.2.7 [place]7.3.698 [place] .3.658797 084.8 MD [facility] 2022-02-13 2022-02-13 Risa Rosa 1.2.840.1 [id number] [facility] 00:00:00 00:00:00 Only B 60737.1.1 ity of 3.412.2.7 [place] .3.464292 MD [facility] 2022-02-13 2022-02-13 Travel 1.2.840.1 1.2.574.163 2477 [id number] [facility] 00:00:00 00:00:00 44173.1.1 350.1.13.41 ity of 3.412.2.7 2.2.7.3.698 [place] .3.710380 084.8 MD [facility] 2022-02-09 2022-02-09 Office EL [place] 1.2.84 0.1 [id number] [facility] 13:30:00 13:30:00 Visit Lisa Carlisle 05501.1.1 ity of 3.412.2.7 [place] .3.746737 MD [facility] 2022-02-09 2022-02-[address] 1.2.84 0.1 [id number] [facility] 13:30:00 13:30:00 Visit Lisa Carlisle 00584.1.1 ity of 3.412.2.7 [place] .3.612333 MD .8 [facility] 2022-02-09 2022-02-09 Ancillary EL 1.2.840.1 [id number] 1092 [id number] [facility] 08:00:00 08:45:00 Procedure 55627.1.1 it y of 3.412.2.7 [place] .3.883716 MD [facility]8 [facility] 2022-02-09 2022-02-09 Ancillary 1.2.840.1 [id number] 1092 [id number] [facility] 08:00:00 08:45:00 Procedure 09690.1.1 it y of 3.412.2.7 [place] .3.927551 MD Retana8 [facility] 2022-02-09 2022-02-09 Prep for Khan-Yung 1.2.840.1 [id number] 1 [id number] [facility] 00:00:00 00:00:00 Surgery Lisa de la vega 49686.1.1 ity of 3.412.2.7 [place] .3.083902 MD [facility] 2022-02-09 2022-02-09 Travel 1.2.840.1 1.2.202.765 9365 [id number] [facility] 00:00:00 00:00:00 05752.1.1 350.1.13.41 ity of 3.412.2.7 2.[place]7.3.698 [place] .3.482381 084.8 MD [facility] 2022-02-09 2022-02-09 Prep for Khan-Yung 1.2.840.1 [id number] 1 [id number] [facility] 00:00:00 00:00:00 Surgery Lisa de la vega 52517.1.1 ity of 3.412.2.7 [place] .3.432157 MD [facility] 2022-02-09 2022-02-09 Travel 1.2.840.1 1.2.046.270 1625 [id number] [facility] 00:00:00 00:00:00 90536.1.1 350.1.13.41 ity of 3.412.2.7 2.[place]7.3.698 [place] .3.678536 084.8 MD [facility] 2022-02-06 2022-02-06 Infusion Risa Oquendo 1.2.840.1 [id number] [facility] 15:00:00 17:24:59 Karlie Link 16495.1.1 ity of 3.412.2.7 [place] .3.073795 MD [facility] 2022-02-06 2022-02-06 Infusion Risa Aguilera 1.2.840.1 [id number] [facility] 15:00:00 17:24:59 Karlie Link C 40042.1.1 ity of 3.412.2.7 [place] .3.126999 MD [facility] 2022-02-06 2022-02-06 Outpatient RISA OQUENDO [facility] [id number] [place] 14:01:12 14:16:37 [facility] 2022-02-06 2022-02-06 Travel 1.2.840.1 1.2.653.022 9879 [id number] [facility] 00:00:00 00:00:00 98405.1.1 350.1.13.41 ity of 3.412.2.7 2.[place].7.3.698 [place] .3.629193 084.8 MD [facility] 2022-02-06 2022-02-06 Travel 1.2.840.1 1.2.913.900 0903 [id number] [facility] 00:00:00 00:00:00 41336.1.1 350.1.13.41 ity of 3.412.2.7 2.2.7.3.698 [place] .3.189032 084.8 MD [facility] 2022-01-30 2022-01-30 Infusion Rias Oquendo 1.2.840.1 [id number] [facility] 15:30:00 17:39:03 Becky Macedo 76190.1.1 ity of 3.412.2.7 [place] .3.564028 MD [facility] 2022-01-30 2022-01-30 Infusion Risa Aguilera 1.2.840.1 [id number] [facility] 15:30:00 17:39:03 Becky Macedo 47810.1.1 ity of 3.412.2.7 [place] .3.548557 MD [facility] 2022-01-30 2022-01-30 Outpatient RISA OQUENDO [facility] [id number] 14:10:23 14:33:14 [facility] 2022-01-30 2022-01-30 Travel 1.2.840.1 1.2.435.810 2111 [id number] [facility] 00:00:00 00:00:00 88352.1.1 350.1.13.41 ity of 3.412.2.7 2.[place].7.3.698 [place] .3.312260 084.8 MD Ret[facility]8 [facility] 2022-01-30 2022-01-30 Travel 1.2.840.1 1.2.103.513 1229 [id number] [facility] 00:00:00 00:00:00 22987.1.1 350.1.13.41 ity of 3.412.2.7 2.2.7.3.698 [place] .3.824786 084.8 MD [facility] 2022-01-22 2022-01-22 Infusion Gil Lockhart 1.2.840.1 [id number] 1 [id number] [facility] 11:45:00 14:19:41 Korin Garzon 37303.1.1 ity of 3.412.2.7 [place] .3.302048 MD [facility] 2022-01-22 2022-01-22 Infusion Gil Aguirre 1.2.840.1 [id number] 1 [id number] [facility] 11:45:00 14:19:41 Korin Garzon 11126.1.1 ity of 3.412.2.7 [place] .3.237639 MD [facility] 2022-01-22 2022-01-22 Outpatient GIL LOCKHART [facility] [id number] 10:42:42 11:22:43 [facility] 2022-01-22 2022-01-22 Travel 1.2.840.1 1.2.326.556 5122 [id number] [facility] 00:00:00 00:00:00 05692.1.1 350.1.13.41 ity of 3.412.2.7 2.2.7.3.698 [place] .3.345602 084.8 MD [facility]8 [facility] 2022-01-22 2022-01-22 Travel 1.2.840.1 1.2.636.703 6898 [id number] [facility] 00:00:00 00:00:00 01406.1.1 350.1.13.41 ity of 3.412.2.7 2.2.7.3.698 [place] .3.704828 084.8 MD [facility] 2022-01-16 2022-01-16 Orders Risa Aguilera 1.2.840.1 [id number] [facility] 00:00:00 00:00:00 Only B 17547.1.1 ity of 3.412.2.7 [place] .3.704365 MD [facility] 2022-01-16 2022-01-16 Risa Rosa 1.2.840.1 [id number] 281 [id number] [facility] 00:00:00 00:00:00 Only B 70763.1.1 ity of 3.412.2.7 [place] .3.902810 MD [facility] 2022-01-15 2022-01-15 Infusion Gil Lockhart 1.2.840.1 [id number] 1 [id number] [facility] 11:45:00 16:07:40 Ivis Aguirre 44288.1.1 ity of 3.412.2.7 [place] .3.525084 MD [facility] 2022-01-15 2022-01-15 Infusion Gil Aguirre 1.2.840.1 [id number] 1 [id number] [facility] 11:45:00 16:07:40 Ivis Aguirre 08259.1.1 ity of 3.412.2.7 [place] .3.524894 MD [facility] 2022-01-15 2022-01-15 Office EL Hugo, 1.2.840.1 [id number] [facility] 11:00:00 11:20:00 Visit Danisha 96389.1.1 ity of 3.412.2.7 [place] .3.437387 MD [facility] 2022-01-15 2022-01-15 Office Hugo, 1.2.840.1 [id number] [facility] 11:00:00 11:20:00 Visit Danisha 37353.1.1 ity of 3.412.2.7 [place] .3.796337 MD [facility] 2022-01-15 2022-01-15 Outpatient EL GIL AGUIRRE [facility] [id number] 09:23:36 09:39:47 [facility] 2022-01-15 2022-01-15 Risa Rosa 1.2.840.1 [id number] 024 [id number] [facility] 00:00:00 00:00:00 Only B 59827.1.1 ity of 3.412.2.7 [place] .3.844005 MD [facility] 2022-01-15 2022-01-15 Travel 1.2.840.1 1.2.877.724 1783 [id number] [facility] 00:00:00 00:00:00 79728.1.1 350.1.13.41 ity of 3.412.2.7 2.2.7.3.698 [place] .3.399135 084.8 MD [facility] 2022-01-15 2022-01-15 Risa Rosa 1.2.840.1 [id number] 147 [id number] [facility] 00:00:00 00:00:00 Only B 09065.1.1 ity of 3.412.2.7 [place] .3.493678 MD [facility] 2022-01-15 2022-01-15 Travel 1.2.840.1 1.2.281.258 5375 [id number] [facility] 00:00:00 00:00:00 83589.1.1 350.1.13.41 ity of 3.412.2.7 2.2.7.3.698 [place] .3.292228 084.8 MD [facility]8 [facility] 2022-01-09 2022-01-09 Orders Risa Aguilera 1.2.840.1 [id number] 050 [id number] [facility] 00:00:00 00:00:00 Only B 31380.1.1 ity of 3.412.2.7 [place] .3.031159 MD [facility] 2022-01-09 2022-01-09 Risa Rosa 1.2.840.1 [id number] 100 [id number] [facility] 00:00:00 00:00:00 Only B 49644.1.1 ity of 3.412.2.7 [place] .3.578378 MD [facility] 2022-01-08 2022-01-08 Orders Risa Aguilera 1.2.840.1 [id number] 654 [id number] [facility] 00:00:00 00:00:00 Only B 87827.1.1 ity of 3.412.2.7 [place] .3.613884 MD [facility] 2022-01-08 2022-01-08 Telephone Hugo, 1.2.840.1 [id number] 1094 [id number] [facility] 00:00:00 00:00:00 Danisha 38585.1.1 ity of 3.412.2.7 [place] .3.441854 MD [facility] 2022-01-08 2022-01-08 Carley Aguilera Risa 1.2.840.1 [id number] 670 [id number] [facility] 00:00:00 00:00:00 Only B 81414.1.1 ity of 3.412.2.7 [place] .3.694760 .8 [facility] 2022-01-08 2022-01-08 Telephone Hugo, 1.2.840.1 [id number] 1094 [id number] [facility] 00:00:00 00:00:00 Danisha 04714.1.1 ity of 3.412.2.7 [place] .3.533916 .8 [facility] 2022-01-03 2022-01-03 Risa Rosa 1.2.840.1 [id number] 793 [id number] [facility] 00:00:00 00:00:00 Only B 67746.1.1 ity of 3.412.2.7 [place] .3.403381 .8 [facility] 2022-01-03 2022-01-03 Risa Rosa 1.2.840.1 [id number] 848 [id number] Univers 00:00:00 00:00:00 Only B 52641.1.1 ity of 3.412.2.7 [place] .3.464416 MD [facility]8 [facility] 2022-01-02 2022-01-02 Infusion Gil Lockhart 1.2.840.1 [id number] 1 [id number] [facility] 14:15:00 16:39:43 Adelaide Monsivais 34781.1.1 ity of 3.412.2.7 [place] .3.808509 MD [facility] 2022-01-02 2022-01-02 Infusion Gil Aguirre 1.2.840.1 [id number] 1 [id number] [facility] 14:15:00 16:39:43 Adelaide Monsivais 98075.1.1 ity of 3.412.2.7 [place] .3.149659 MD [facility]8 [facility] 2022-01-02 2022-01-02 Outpatient GIL LOCKHART [facility] [id number] 13:02:21 13:18:35 [facility] 2022-01-02 2022-01-02 Travel 1.2.840.1 1.2.187.146 2934 [id number] [facility] 00:00:00 00:00:00 20790.1.1 350.1.13.41 ity of 3.412.2.7 2.2.7.3.698 [place] .3.092665 084.8 MD [facility] 2022-01-02 2022-01-02 Travel 1.2.840.1 1.2.401.464 2422 [id number] [facility] 00:00:00 00:00:00 27902.1.1 350.1.13.41 ity of 3.412.2.7 2.2.7.3.698 [place] .3.279914 084.8 MD [facility] 2021-12-29 2021-12-29 Telephone Jackie Deal 1.2.840.1 [id number] [facility] 00:00:00 00:00:00 B 59758.1.1 ity of 3.412.2.7 [place] .3.536290 MD [facility] 2021-12-29 2021-12-29 Telephone Jackei Deal 1.2.840.1 [id number] [facility] 00:00:00 00:00:00 B 97253.1.1 ity of 3.412.2.7 [place] .3.257940 MD [facility] 2021-12-26 2021-12-26 Infusion Gil Lockhart 1.2.840.1 [id number] 1 [id number] [facility] 11:30:00 14:33:10 Adelaide Monsivais 41977.1.1 ity of 3.412.2.7 [place] .3.087613 MD [facility] 2021-12-26 2021-12-26 Infusion Gil Aguirre 1.2.840.1 [id number] 1 [id number] [facility] 11:30:00 14:33:10 Adelaide Monsivais 71343.1.1 ity of 3.412.2.7 [place] .3.255491 MD [facility] 2021-12-26 2021-12-26 Office Gil Lockhart 1.2.840.1 [id number] 10 [id number] [facility] 10:30:00 11:24:07 Visit 56749.1.1 ity of 3.412.2.7 [place] .3.633188 MD [facility]8 [facility] 2021-12-26 2021-12-26 Office Gil Aguirre 1.2.840.1 [id number] 10 [id number] [facility] 10:30:00 11:24:07 Visit 78990.1.1 ity of 3.412.2.7 [place] .3.786054 MD [facility]8 [facility] 2021-12-26 2021-12-26 Outpatient EL GIL AGUIRRE [facility] [id number] 10:11:17 10:38:19 [facility] 2021-12-26 2021-12-26 Orders Hugo, 1.2.840.1 [id number] [facility] 00:00:00 00:00:00 Only Danisha 30874.1.1 ity of 3.412.2.7 [place] .3.659531 MD [facility] 2021-12-26 2021-12-26 Travel 1.2.840.1 1.2.543.173 8168 [id number] [facility] 00:00:00 00:00:00 47140.1.1 350.1.13.41 ity of 3.412.2.7 2.2.7.3.698 [place] .3.614970 08Deanna.8 MD [facility] 2021-12-26 2021-12-26 Carley Arias, 1.2.840.1 [id number] [facility] 00:00:00 00:00:00 Only Danisha 99762.1.1 ity of 3.412.2.7 [place] .3.681251 MD [facility] 2021-12-26 2021-12-26 Travel 1.2.840.1 1.2.462.992 9648 [id number] [facility] 00:00:00 00:00:00 19593.1.1 350.1.13.41 ity of 3.412.2.7 2.2.7.3.698 [place] .3.674690 084.8 MD [facility] 2021-12-19 2021-12-19 Infusion OMAR AguirreGil 1.2.840.1 [id number] 1 [id number] [facility] 14:15:00 16:43:28 Gunjan Bloom 89499.1.1 ity of 3.412.2.7 [place] .3.148818 MD [facility] 2021-12-19 2021-12-19 Infusion CarlaGil 1.2.840.1 [id number] 1 [id number] [facility] 14:15:00 16:43:28 Gunjan Bloom 64181.1.1 ity of 3.412.2.7 [place] .3.705953 MD [facility] 2021-12-19 2021-12-19 Outpatient GIL LOCKHART [facility] [id number] 12:55:52 13:04:05 [facility] 2021-12-19 2021-12-19 Travel 1.2.840.1 1.2.723.303 4025 [id number] [facility] 00:00:00 00:00:00 17281.1.1 350.1.13.41 ity of 3.412.2.7 2.2.7.3.698 [place] .3.975491 084.8 MD [facility] 2021-12-19 2021-12-19 Travel 1.2.840.1 1.2.582.345 3352 [id number] [facility] 00:00:00 00:00:00 26447.1.1 350.1.13.41 ity of 3.412.2.7 2.2.7.3.698 [place] .3.671753 084.8 MD [facility] 2021-12-13 2021-12-13 Carley Guevara 1.2.840.1 [id number] 10 [id number] [facility] 00:00:00 00:00:00 Only Lisa de la vega 29568.1.1 ity of 3.412.2.7 [place] .3.359413 MD [facility] 2021-12-13 2021-12-13 Risa Rosa 1.2.840.1 [id number] 433 [id number] [facility] 00:00:00 00:00:00 Only B 61014.1.1 ity of 3.412.2.7 [place] .3.313063 MD [facility] 2021-12-12 2021-12-12 Infusion Gil Aguirre 1.2.840.1 [id number] 1 [id number] [facility] 15:00:00 17:04:49 Shahnaz Shipley 47537.1.1 ity of 3.412.2.7 [place] .3.767242 MD [facility] 2021-12-12 2021-12-12 Gil Mendez 1.2.840.1 [id number] 10 [id number] [facility] 00:00:00 00:00:00 Only 11738.1.1 ity of 3.412.2.7 [place] .3.420643 MD [facility] 2021-12-12 2021-12-12 Travel 1.2.840.1 1.2.976.650 7715 [id number] [facility] 00:00:00 00:00:00 92779.1.1 350.1.13.41 ity of 3.412.2.7 2.2.7.3.698 [place] .3.050116 084.8 MD [facility] 2021-12-11 2021-12-11 Telephone Era, 1.2.840.1 [id number] 1 [id number] [facility] 00:00:00 00:00:00 Chey A 67250.1.1 it y of 3.412.2.7 [place] .3.925308 MD [facility] 2021-12-07 2021-12-07 Telephone Jackie Deal 1.2.840.1 [id number] [facility] 00:00:00 00:00:00 B 14535.1.1 ity of 3.412.2.7 [place] .3.732128 MD [facility] 2021-12-05 2021-12-05 Infusion Gil Aguirre 1.2.840.1 [id number] 1 [id number] [facility] 13:30:00 15:10:39 Gunjan Bloom S 21804.1.1 ity of 3.412.2.7 [place] .3.245328 MD [facility] 2021-12-05 2021-12-05 Office Gil Aguirre 1.2.840.1 [id number] 10 [id number] [facility] 11:20:00 12:50:28 Visit Danisha Arias 40557.1.1 ity of 3.412.2.7 [place] .3.059427 MD [facility] 2021-12-05 2021-12-05 Travel 1.2.840.1 1.2.150.243 3401 [id number] [facility] 00:00:00 00:00:00 83545.1.1 350.1.13.41 ity of 3.412.2.7 2.2.7.3.698 [place] .3.903144 084.8 MD [facility] 2021-12-04 2021-12-04 Telephone Cyriac, 1.2.840.1 [id number] 1093 [id number] [facility] 00:00:00 00:00:00 Gagandeep S 00732.1.1 ity of 3.412.2.7 [place] .3.187448 MD [facility] 2021-11-28 2021-11-28 Infusion Risa Aguilera B 1.2.840.1 [id number] [facility] 15:15:00 17:03:38 Becky Macedo 36741.1.1 ity of 3.412.2.7 [place] .3.438246 MD [facility] 2021-11-28 2021-11-28 Aaron Hannon 1.2.840.1 [id number] 10 [id number] [facility] 00:00:00 00:00:00 Only T 76545.1.1 ity of 3.412.2.7 [place] .3.854193 MD [facility] 2021-11-28 2021-11-28 Travel 1.2.840.1 1.2.277.399 9445 [id number] [facility] 00:00:00 00:00:00 45844.1.1 350.1.13.41 ity of 3.412.2.7 2.2[place]7.3.698 [place] .3.816671 084.8 MD [facility] 2021-11-28 2021-11-28 Jackie López 1.2.840.1 [id number] [facility] 00:00:00 00:00:00 B 36792.1.1 ity of 3.412.2.7 [place] .3.511057 MD [facility] 2021-11-28 2021-11-28 Risa Rosa 1.2.840.1 [id number] Univers 00:00:00 00:00:00 Only B 19353.1.1 ity of 3.412.2.7 [place] .3.092215 MD [facility] 2021-11-24 2021-11-24 Documentat Risa Aguilera 1.2.840.1 [id number] [facility] 00:00:00 00:00:00 ion B 58620.1.1 ity of 3.412.2.7 [place] .3.077888 MD [facility] 2021-11-24 2021-11-24 Risa Rosa 1.2.840.1 [id number] [facility] 00:00:00 00:00:00 Only B 42446.1.1 ity of 3.412.2.7 [place] .3.547401 MD [facility] 2021-11-21 2021-11-21 [facility] Danisha Arias 1.2.840.1 [id number] Univers 13:17:50 23:59:00 Encounter Cha Dumont 49588.1.1 ity of 3.412.2.7 [place] .3.580513 MD [facility] 2021-11-21 2021-11-21 Travel 1.2.840.1 1.2.247.351 7499 [id number] [facility] 00:00:00 00:00:00 24757.1.1 350.1.13.41 ity of 3.412.2.7 2.2.7.3.698 [place] .3.894722 084.8 MD [facility] 2021-11-14 2021-11-14 Hospital Risa Aguilera 1.2.840.1 [id number] [facility] 07:11:01 23:59:00 Encounter Max Woodward 10266.1.1 ity of 3.412.2.7 [place] .3.603376 MD [facility] 2021-11-14 2021-11-14 Infusion Risa Aguilera 1.2.840.1 [id number] [facility] 12:15:00 17:22:12 Korin Garzon 39672.1.1 ity of 3.412.2.7 [place] .3.754374 MD [facility] 2021-11-14 2021-11-14 Office Risa Aguilera 1.2.840.1 [id number] 1 [id number] [facility] 11:20:00 12:51:26 Visit Danisha Arias 31791.1.1 ity of 3.412.2.7 [place] .3.827613 MD [facility] 2021-11-14 2021-11-14 Orders Antionette Norman 1.2.840.1 [id number] Univers 00:00:00 00:00:00 Only 58705.1.1 ity of 3.412.2.7 [place] .3.893384 MD [facility] 2021-11-14 2021-11-14 Travel 1.2.840.1 1.2.164.791 [id number] [id number] Univers 00:00:00 00:00:00 11368.1.1 350.1.13.41 ity of 3.412.2.7 2.[place].3.698 [place] .3.542373 084.8 MD Maria [facility] 2021-11-10 2021-11-10 Anesthesia Logan Palomo 1.2.840.1 [id number] Univers 23:59:59 23:59:59 Event 49045.1.1 ity of 3.412.2.7 [place] .3.906553 MD Maria [facility] 2021-11-10 2021-11-10 [facility] [place] 1.2.8 40.1 [id number] Univers 12:41:49 23:59:00 Encounter Edelmira Aguilera 66011.1.1 ity of 3.412.2.7 [place] .3.673672 MD [facility] 2021-11-10 2021-11-10 Ancillary Risa Aguilera 1.2.840.1 [id number] Univers 12:15:00 14:00:00 Procedure B 40007.1.1 it y of 3.412.2.7 [place] .3.267902 MD [facility] 2021-11-10 2021[facility].1 [id number] Univers 11:15:00 11:15:00 Support Carol Ann Almanza 92187.1.1 ity of 3.412.2.7 [place] .3.386438 MD [facility] 2021-11-10 2021-11-10 STEVIE Boudreaux 1.2.840.1 [id number] Univers 08:30:00 09:00:00 Patti Mandujano 00835.1.1 ity of ts 3.412.2.7 [place] .3.751909 MD [facility] 2021-11-10 2021-11-10 Travel 1.2.840.1 1.2.107.653 [id number] [id number] Univers 00:00:00 00:00:00 26621.1.1 350.1.13.41 ity of 3.412.2.7 [place].3.698 [place] .3.647059 084.8 MD [facility]8 [facility] 2021-11-09 2021-11-09 Orders Janusz, 1.2.840.1 [id number] Univers 00:00:00 00:00:00 Only Nazia 14671.1.1 ity of 3.412.2.7 [place] .3.688481 MD [facility] 2021-11-08 2021-11-08 Orders Rush, 1.2.840.1 [id number] Univers 00:00:00 00:00:00 Only Sylvester Arizmendi 27504.1.1 ity of 3.412.2.7 [place] .3.200244 MD [facility] 2021-11-08 2021-11-08 Telephone Abimbola, 1.2.840.1 [id number] Univers 00:00:00 00:00:00 Tammy I 70988.1.1 ity of 3.412.2.7 [place] .3.103506 MD [facility] 2021-11-06 2021-11-06 Consult Hugo, 1.2.840.1 [id number] Univers 10:00:00 11:43:46 Danisha 41523.1.1 ity of 3.412.2.7 [place] .3.238093 MD [facility] 2021-11-06 2021-11-06 Orders Paola 1.2.840.1 [id number] Univers 00:00:00 00:00:00 Only Lisa de la vega 50069.1.1 ity of 3.412.2.7 [place] .3.939605 MD [facility] 2021-11-06 2021-11-06 Orders Risa Aguilera 1.2.840.1 [id number] Univers 00:00:00 00:00:00 Only B 02511.1.1 ity of 3.412.2.7 [place] .3.484835 MD Maria [facility] 2021-11-06 2021-11-06 Travel 1.2.840.1 1.2.828.735 [id number] Univers 00:00:00 00:00:00 81572.1.1 350.1.13.41 ity of 3.412.2.7 [place]7.3.698 [place] .3.099510 084.8 MD Maria [facility] 2021-11-03 2021-11-03 [facility], 1.2.840.1 [id number] [facility] 11:15:00 23:59:00 Encounter Ihab 98658.1.1 it y of 3.412.2.7 [place] .3.091165 MD Maria [facility] 2021-11-03 2021-11-03 Consult [facility], 1.2.840.1 [id number] 10:18:26 11:51:45 IHAB 44476.1.1 Oli rso 3.412.2.7 n .3.450860 .8 2021-11-03 2021-11-03 Travel 1.2.840.1 1.2.867.355 [id number] [id number] Univers 00:00:00 00:00:00 72937.1.1 350.1.13.41 ity of 3.412.2.7 2.[place]7.3.698 [place] .3.549838 084.8 MD Maria [facility] 2021-11-02 2021-11-02 Ancillary Paola 1.2.840.1 [id number] Univers 12:40:00 15:05:00 Procedure Lisa de la vega 56376.1.1 ity of 3.412.2.7 [place] .3.708403 MD .8 [facility] 2021-11-02 2021-11-02 Ancillary Khan-Yung 1.2.840.1 [id number] Univers 09:30:00 10:00:00 Procedure eliceo, Lisa 66596.1.1 ity of 3.412.2.7 [place] .3.604775 MD Ret[facility]8 [facility] 2021-11-02 2021-11-02 Ancillary Khan-Yung 1.2.840.1 [id number] Univers 07:00:00 07:30:00 Procedure eliceo, Lisa 73536.1.1 ity of 3.412.2.7 [place] .3.615341 MD Retana8 [facility] 2021-11-02 2021-11-02 Travel 1.2.840.1 1.2.387.065 [id number] Univers 00:00:00 00:00:00 66001.1.1 350.1.13.41 ity of 3.412.2.7 2.[place].3.698 [place] .3.181926 084.8 MD Maria [facility] 2021-10-27 2021-10-27 Office EL Aracelis, 1.2.840.1 [id number] Univers 08:00:00 11:38:06 Visit Kerry Whittaker 12025.1.1 it y of [place] 3.412.2.7 [place] .3.095217 MD Retana8 [facility] 2021-10-27 2021-10-27 NPR 1.2.840.1 [id number] Univers 07:30:00 08:48:48 69222.1.1 ity of 3.412.2.7 [place] .3.116194 MD Retana8 [facility] 2021-10-27 2021-10-27 Travel 1.2.840.1 1.2.674.454 [id number] [id number] Univers 00:00:00 00:00:00 32877.1.1 350.1.13.41 ity of 3.412.2.7 [place].3.698 [place] .3.571620 084.8 MD Retana8 [facility] 2021-10-26 2021-10-26 Ancillary OMAR Johnsontti, 1.2.840.1 [id number] Univers 20:15:00 20:20:00 Procedure Jorge 30511.1.1 ity of [place] 3.412.2.7 [place] .3.342219 MD Retana8 [facility] 2021-10-26 2021-10-26 Ancillary OMAR Refinetti, 1.2.840.1 [id number] 1 [id number] Univers 20:10:00 20:15:00 Procedure Jorge 11354.1.1 ity of [place] 3.412.2.7 [place] .3.171071 MD Retana8 [facility] 2021-10-26 2021-10-26 Ancillary OMAR Johnsontti, 1.2.840.1 [id number] 1 [id number] Univers 20:05:00 20:10:00 Procedure Jorge 90316.1.1 ity of [place] 3.412.2.7 [place] .3.874847 MD Retana8 [facility] 2021-10-26 2021-10-26 Ancillary OMAR Johnsontti, 1.2.840.1 [id number] 1 [id number] Univers 20:00:00 20:05:00 Procedure Jorge 12691.1.1 ity of [place] 3.412.2.7 [place] .3.551765 MD Retana8 [facility] 2021-10-26 2021-10-26 Ancillary 1.2.840.1 [id number] [id number] Univers 14:00:00 14:15:00 Procedure 78796.1.1 it y of 3.412.2.7 [place] .3.727208 MD Retana8 [facility] 2021-10-26 2021-10-26 Ancillary Paola 1.2.840.1 [id number] Univers 11:15:00 12:45:00 Procedure Lisa de la vega 26111.1.1 ity of 3.412.2.7 [place] .3.487482 .8 [facility] 2021-10-26 2021-10-26 Ancillary OMAR GUEVARA 1.2.840.1 [id number] 09:51:40 09:51:40 Procedure LISA DE LA VEGA 14551.1.1 Anderso 3.412.2.7 n .3.944979 .8 2021-10-26 2021-10-26 Travel 1.2.840.1 1.2.753.473 [id number] [id number] Univers 00:00:00 00:00:00 32722.1.1 350.1.13.41 ity of 3.412.2.7 [place].3.698 [place] .3.541432 084.8 MD Retana8 [facility] 2021-10-25 2021-10-25 Lab Toñito Guevara 1.2.840.1 [id number] Univers 00:00:00 00:00:00 Michael Russell 29535.1.1 ity of n 3.412.2.7 [place] .3.688314 .8 [facility] 2021-10-20 2021-10-20 Carley Guevara 1.2.840.1 [id number] Univers 00:00:00 00:00:00 Only Lisa de la vega 10413.1.1 ity of 3.412.2.7 [place] .3.674625 MD Retana8 [facility] 2021-10-19 2021-10-19 Outpatient Kaleb SALCIDO [facility] [id number] Univers 10:20:00 10:20:00 [facility] [place] [facility] 2021-10-17 2021-10-17 Outpatient Kaleb LAMBERT [facility] [id number] Univers 13:15:00 13:15:00 TIFFANY saunders [facility] 2021-10-17 2021-10-17 Outpatient Kaleb LAMBERT [facility] [id number] Univers 00:00:00 00:00:00 TIFFANY saunders [facility] 2021-10-16 2021-10-16 Outpatient R AURELIOLEO [facility] [id number] [id number] Univers 09:00:00 09:00:00 TIFFANY saunders [facility] 2021-10-16 2021-10-16 Outpatient R AURELIOLEO [facility] [id number] Univers 09:00:00 09:00:00 TIFFANY saunders [facility] 2021-10-12 2021-10-12 [facility] 1.2.840.114 [id number] Univers 00:00:00 00:00:00 Tiffany LAUGHLIN 350.1.13.10 i ty of [place] [phone] [address] 2021-10-11 2021-10-11 Orders Doctor CARLA 1.2.840.114 [id number] Univers 00:00:00 00:00:00 Only Unassigned, ROSA M 350.1.13.10 [place] [facility] 4.2.7.2.686 [place] as [phone] [address] 2021-10-10 2021-10-10 [facility] [id number] [id number] Univers 14:30:00 16:01:54 TIFFANY saunders [facility] 2021-10-10 2021-10-10 Office [facility] 1.2.870.990 [id number] 6046 Univers 14:30:00 16:01:54 Visit Tiffany LAUGHLIN 350.1.13.10 i ty [facility] 4.[place] [phone] Nm dic[address] 2021-10-10 2021-10-10 Office [facility] 1.2.086.782 5944 6046 Univers 14:30:00 16:01:54 Visit Tiffany HOODTON 350.1.13.10 i ty [place] [phone] Nm dic[address] 2021-10-10 2021-10-10 Out[facility] [id number] Univers 14:30:00 14:30:00 TIFFANY saunders [facility] 2021-10-10 2021-10-10 Orders Doctor CARLA 1.2.840.114 [id number] Univers 00:00:00 00:00:00 Only Unassigned, ROSA M 350.1.13.10 [place] [facility] 4.2.7.2.686 Nirmal as [phone] [facility] [address] [place] 2021-10-09 2021-10-09 [facility] [id number] [id number] Univers 10:23:03 23:59:00 TIFFANY saunders [facility] 2021-10-09 2021-10-09 [facility] 1.2.840.114 [id number] Univers 10:23:03 23:59:00 Encounter Tiffany Howard [facility] 350.1.13.10 ity of [facility] 4.2.7.2.[place] [id number] [facility] [address] [place] 2021-10-09 2021-10-09 Outpatient R [facility] [id number] Univers 10:23:03 23:59:00 TIFFANY saunders [facility] 2021-10-03 2021-10-03 Outpatient [facility] [id number] Univers 14:45:00 16:17:41 TIFFANY saunders [facility] 2021-10-03 2021-10-03 Office Tiffany Lambert [facility] 1.2.840. 114 [id number] Univers 14:45:00 16:17:41 Visit Rm, Adc Surg Spec Procedure [place] 3 50.1.13.10 it[place] of [place] [phone] Nm dical [facility] 419 [facility] 2021-10-03 2021-10-03 Outpatient [facility] [id number] Univers 14:45:00 16:17:41 TIFFANY saunders [facility] 2021-10-03 2021-10-03 Office Tiffany Lambert [facility] 1.2.840. 114 [id number] Univers 14:45:00 16:17:41 Visit Rm, Adc Surg Spec Procedure [place] 3 50.1.13.10 [place] [phone] [facility] 419 [facility] 2021-10-03 2021-10-03 Outpatient R [facility] [id number] Univers 14:45:00 16:17:41 TIFFANY [facility] [place] [facility] 2021-10-03 2021-10-03 Outpatient R [facility] [id number] Univers 14:45:00 14:45:00 TIFFANY [facility] [place] [facility] 2021-10-03 2021-10-03 Orders Doctor CARLA 1.2.840.114 [id number] Univers 00:00:00 00:00:00 Only Unassigned, ROSA M 350.1.13.10 [place] [facility] 4.2.7.2.686 Nirmal as [phone] [address] 2021-10-02 2021-10-02 Telephone [facility] 1.2.840.114 [id number] Univers 00:00:00 00:00:00 Tiffany LAUGHLIN 350.1.13.10 i [place] [phone] [facility] 419 [facility] 2021-09-18 2021-09-18 Outpatient R [facility] [id number] Univers 19:00:38 23:59:00 DUNCAN zuletay o f [facility] 2021-09-18 2021-09-18 [facility] 1.2.224.237 [id number] Univers 19:00:38 23:59:00 Encounter [facility] 350.1.13.10 ity of [place] 4.2.7.2.686 Nirmal as MARIA D?BLEA [phone] Nm rohitnora [facility] [address] [facility] 2021-09-18 2021-09-18 Urgent [facility] 1.2.840.114 [id number] Univers 19:00:00 19:00:00 Care [facility] 350.1.13.10 i ty of [place] 4.2.7.2.686 Nimral as MARIA D?BLEA [phone] Nm dical KNEY [address] [place] [facility] 2021-09-18 2021-09-18 Orders Doctor CARLA 1.2.840.114 [id number] Univers 00:00:00 00:00:00 Only Unassigned, ROSA M 350.1.13.10 [place] [facility] 4.2.7.2.686 [place] [phone] [address] 2021-09-06 2021-09-06 Orders Doctor CARLA 1.2.840.114 [id number] Univers 00:00:00 00:00:00 Only Unassigned, ROSA M 350.1.13.10 [place] [facility] 4.2.7.2.686 [place] as [phone] [address] 2021-09-04 2021-09-04 Outpatient R [facility] [id number] Univers 16:00:00 16:00:00 JOSE ity o f [facility] 2021-08-30 2021-08-30 Office [facility] 1.2.840.114 [id number] Univers 13:20:00 13:40:00 Visit Jose [place] 350.1.13.10 [place] [phone] Nm dical NAL 059 [facility] 2021-08-30 2021-08-30 Outpatient R [facility] [id number] Univers 13:20:00 13:20:00 YINKACHELSY ity o f [facility] 2021-04-13 2021-04-13 [facility] 1.2.840.114 [id number] Univers 15:42:05 23:59:00 Encounter Jose [place] 350.1.13.10 it[place] [phone] Nm dical nal 843 [facility] 2021-04-13 2021-04-13 Outpatient R [facility] [id number] Univers 16:00:00 16:00:00 JOSE zuletay o f [facility] 2021-04-13 2021-04-13 Telephone [facility] 1.2.028.045 [id number] Univers 00:00:00 00:00:00 Qiakinza Laughlin 350.1.13.10 it[place] [phone] Nm dical nal 9 [facility] 2021-04-06 2021-04-06 [facility] 1.2.174.186 [id number] Univers 00:00:00 00:00:00 Jose [place] 350.1.13.10 [place] [phone] Nm dical nal 9 [facility] 2021-03-29 2021-03-29 [facility] 1.2.840.114 [id number] Univers 12:52:59 23:59:00 Encounter Jose [place] 350.1.13.10 it[place] [phone] [facility] [address] [place] 2021-03-29 2021-03-29 [facility] R [facility] [id number] Univers 00:00:00 00:00:00 JOSE zuletajuana o f [facility] 2021-03-29 2021-03-29 Orders Doctor CARLA 1.2.840.114 [id number] Univers 00:00:00 00:00:00 Only Unassigned, ROSA M 350.1.13.10 [place] [facility] 4.2.7.2.686 Nirmal as [phone] [facility] [address] [place] 2021-03-09 2021-03-09 Orders Doctor CARLA 1.2.840.114 [id number] Univers 00:00:00 00:00:00 Only Unassigned, ROSA M 350.1.13.10 [place] [facility]OS[facility]ITAL 4.2.7.2.686 Nirmal as [phone] [facility] [address] [place] 2021-03-01 2021-03-01 Office [facility] 1.2.840.114 [id number] Univers 12:59:23 13:42:14 Visit Jose [place] 350.1.13.10 ity [facility] 4.2.7.2.686 [facility] [phone] Nm dical [facility]9 [facility] 2021-03-01 2021-03-01 Outpatient R ELIEL, [facility] [id number] Univers 13:40:00 13:40:00 YINKACHELSY ity o f [facility] 2021-03-01 2021-03-01 Orders Doctor CARLA 1.2.840.114 [id number] Univers 00:00:00 00:00:00 Only Unassigned, ROSA M 350.1.13.10 ity of [facility] 4.2.7.2.686 [place]irm[place] as [phone] [address] 2021-02-13 2021-02-13 Outpatient Yan_W [facility] [id number] [place] 11:54:00 11:54:00 0823 [facility] 2021-02-10 2021-02-10 Outpatient OMAR Triplett [facility] [id number] [place] 15:56:00 15:56:00 [id number] [facility] 2021-01-03 2021-01-03 Hospital Radiology [facility] 1.2.840.114 [id number] 15:30:00 23:59:00 Encounter Noah 350.1.13.10 [place] 4.2.7.2.686 [place] [id number] [id number] 2021-01-03 2021-01-03 Outpatient R RADIOLOGY [facility] [id number] Univers 00:00:00 00:00:00 ity of [facility] 2020-11-16 2020-11-16 Outpatient Yan_W [facility] [id number] [place] 12:32:00 12:32:00 0526 [facility] 2020-11-09 2020-11-09 Outpatient OMAR Triplett [facility] [id number] [place] 12:38:00 12:38:00 [id number] [facility] 2020-09-19 2020-09-19 Outpatient OMAR Triplett [facility] [id number] [place] 12:08:00 12:08:00 [place] -[id number] [facility] 2020-08-19 2020-08-19 Outpatient OMAR Triplett [facility] [id number] [place] 14:53:00 14:53:00 [place] -[id number] [facility] 2020-07-17 2020-07-17 [facility] 1.2.840.114 [id number] 00:00:00 00:00:00 (Out) [facility] 350.1.13.10 [place] 4.2.7.2.686 Professio [phone] nal [address] 2020-07-16 2020-07-16 Telephone Lab, [facility] 1.2.840.114 [id number] 00:00:00 00:00:00 Fam Pob I Health 350.1.13.10 [place] 4.2.7.2.686 Professio [phone] nal [facility] [address] 2020-07-14 2020-07-14 Laboratory Lab, [facility] 1.2.840.114 [id number] 16:12:27 16:32:27 Only Fam Pob I Health 350.1.13.10 [place] 4.2.7.2.686 Professio [phone] nal [facility] Office [address] 2020-07-14 2020-07-14 Outpatient [facility] [id number] Univers 16:20:00 16:20:00 CARLA saunders of [facility] 2020-07-14 2020-07-14 Letter Doctor AGUIRRE 1.2.840.114 [id number] 00:00:00 00:00:00 (Out) Unassigned, ROSA M 350.1.13.10 [place] [facility] 4.2.7.2.686 [id number] 044 2020-07-09 2020-07-09 Outpatient R [facility] [id number] Univers 18:40:00 18:40:00 RADHA martinez f [facility] 2019-08-07 2019-08-07 Orders Doctor AGUIRRE 1.2.840.114 [id number] Univers 00:00:00 00:00:00 Only Unassigned, ROSA M 350.1.13.10 [place] [facility]PITAL 4.2.7.2.686 [place]al [place] [phone] [place] [address] [place] 2019-06-22 2019-06-22 Orders Doctor CARLA 1.2.840.114 [id number] Univers 00:00:00 00:00:00 Only Unassigned, ROSA M 350.1.13.10 [place] [facility]OSPITAL 4.2.7.2.686 Nirmal [place] [phone] [place] [address] [place] 2018-06-05 2018-06-05 Orders Doctor CARLA 1.2.840.114 [id number] Univers 00:00:00 00:00:00 Only Unassigned, ROSA M 350.1.13.10 [place] [facility]OS[facility]ITAL 4.2.7.2.686 N[place]al as [phone] [address] 2014-04-05 2014-04-05 Outpatient OMAR Triplett [facility] [id number] [place] 12:26:00 12:26:00 John -[id number] [facility] 2012-07-09 2012-07-09 Outpatient OMAR TRIPLETT [facility] [id number] [place] 11:03:00 11:03:00 JOHN -[id number] [facility] 2011-08-08 2011-08-08 Outpatient OMAR SILVA [facility] [id number] [place] 10:00:00 10:00:00 , ABBI -[id number] d [facility] 2010-09-29 2010-09-29 Outpatient OMAR Triplett [facility] [id number] 127 [place] 11:57:00 11:57:00 John -[id number] [facility] 2008-04-05 2008-04-05 Outpatient OMAR Triplett [facility] [id number] [place] 10:11:00 10:11:00 John -[id number] [facility] 2007-08-13 2007-08-13 Outpatient OMAR Triplett [facility] [id number] [place] 10:15:00 10:15:00 John -[id number] [facility] 2007-05-01 2007-05-01 Outpatient OMAR Triplett, [facility] [id number] 127 [place] 10:41:00 10:41:00 John -[id number] [facility] 2007-04-02 2007-04-02 Outpatient OMAR Triplett, [facility] [id number] [place] 12:21:00 12:21:00 John -[id number] [facility] 2007-03-06 2007-03-06 Outpatient OMAR Triplett, [facility] [id number] [place] 12:21:00 12:21:00 John -[id number] [facility] 2007-02-04 2007-02-04 Outpatient OMAR Triplett, [facility] [id number] [place] 10:52:00 10:52:00 John -[id number] [facility] 2006-12-31 2006-12-31 Outpatient OMAR Triplett, [facility] [id number] [place] 12:36:00 12:36:00 John -[id number] [facility] 2006-12-26 2006-12-27 Inpatient OMAR DAY, [facility] [id number] [place] 12:27:00 12:49:00 JAYME -[id number] [facility] 2006-12-13 2006-12-13 Outpatient OMAR Triplett, [facility] [id number] [place] 07:39:00 07:39:00 John -[id number] [facility] 2006-11-13 2006-11-13 Outpatient Ioana, [facility] [id number] [place] 13:17:00 13:17:00 John -[id number] [facility] 2006-10-30 2006-10-30 Outpatient Ioana, [facility] [id number] 127 [place] 12:17:00 12:17:00 John -[id number] [facility] 2006-10-23 2006-10-28 [id number] [place] 13:25:00 10:30:00 ANJUM -[id number] [facility] 2006-10-22 2006-10-22 Outpatient Ioana, [facility] [id number] [place] 14:28:00 14:28:00 John -[id number] [facility] 2005-06-20 2005-06-20 Outpatient OMAR Triplett [facility] [id number] 127 [place] 12:12:00 12:12:00 John -[id number] [facility] 2004-12-27 2004-12-28 [facility] [id number] [place] 23:09:00 12:00:00 Tomasz [id number] [facility] 2003-08-11 2003-08-11 Outpatient OMAR Triplett [facility] [id number] [place] 12:49:00 12:49:00 John [id number] [facility] 2001-04-29 2001-04-29 [facility] [id number] [place] 12:00:00 12:00:00 SENIA [id number] [facility] Results Test Description Test Time Test Comments Results Result Comments Source Pathology Surgical Interpretation 2022-06-04 16:48:19 Test Item Value Reference Range Interpretation Comme nts Submitted u0kgiGSnQKEjr9jmBLTurRGtZqKzVzGzYiIlNazxpXXmZMtrtpTyOOqjy5CtN2DpNoMzUDjqjeVtMRCe VhqkxatpDSJkAIN5siKyMMNsHRppRMAbPZexMn4nsHAiwRweHnYeMIAqh6qtnjIXorbvuPl0d6glBACn HpD9oYNoHKdcI5ezsuWvvLBhXVYzBJs3dY78NDDoiM1 Clinical lsAIpAUqjxkZcEfH8TJcaVZZrXyT4RBJanZTwEEMwJ0axKWEeIUflCHJoLRggqDCmXWN9kIjvg5N4vHL zhLJybAuyOsPsNdJnViVQx5SzGYa4kIigT5MqIMLzGgD6wTOkZMRaBOypIMRiNYTbcoN0tX49DNrunwJ 5pZEov6Mnp36qm497bX1hpHOcHMX7XEIbVWBmtXBtOD History QzMTO2QBYzfOLcE8zuWDSbNO1fjqxpTVasAYfhOTUvcZR7FCBvrSQlX3BtCTKeRIrdWYWfajv6ZbMeCg 1cvKMaxUsiQHkum0dim5yxoFZgLow3HIRwEeEsUnutHQxml0His8kkTMMdwe1kUJQ1zRLpkItoe2Z0rH YaZJQwpVBxdsBwIJTnWxG4YMgvNL2gqn12MNKvBLH3w (test code s9cbJIoqPtefvSgvJFdFFexZ1XiXUDoh944XQTxP1VyEDFmt0A0wkCcZqOwDDHdpMH8gcR9RESkJOy4v XUzvaL4sjIzrGGpB0qgcM0wANYtBH7beearj0vvKGxrABtmXARdeIA0mqB9AZPitVViM2JgpN8mRDKsR UdbXYXavuc6WaUhZh5waPUulNcaYFihSjlgDOydFZZp = 38656) woGeedLtzPooWGRcXPRsNYtcERCtHVtxUYCdGOMxJeYiaLticCeuaA3qMbIwQjTyDWheMM5sBHYiF2dy yLBzIBCgQKReJ4owLpBsdQ4jlZpvWZrlqqFdOYfsSahhgRFnuTaoWpMfkEP7MHZxruVdre8dEWInJlOk wNumjSAeMH2ceIDxNnXrBZR6EDzHVXIbRBIrPBgeqQV ewiebONccluLdIBgkysruTBLzKTkhN3pyYbChGMHxlJewCTjxe5LtO GYxXGZzMjJccGFyfX0= Diagnosis i7uoqQAfOSZjiTFxTJVwEkkzxtZmHLHunPQiY9WyssolLRrzRE3hLM5ovTrwmTLqjTSrGJBnUnWjg2wo s404nHVdn2wiQITYmfyrgKt5tUzuH76fd9M5QwrcF2smXHPdNSaiUWCeSHonkMKlQTf0RFDsdQDcaxRr FrMjJSFluZDteIW0XILhNP0zadhfVJhuCCzoNPCzsyF (test code 8JHMfmSSvL7BqHBQsTT4emyeaMMD2LPqcCEUtPWR9DeKzUAQhu7Luxjf5ViMhpHEoTQqwxRDqmdgoaoR qMMLsDXUMAjETmHcorKZmvRibtFDabUAtJM03jP1ulKLynE1neUByd8YjXWVeThsyAMGunZb4JaLkgSg eAjTlRXKfXVDYFPWNU3MDEEiWGMNLAtSWFw2NGYHBNk = 34) KWDyHfO5ZdIFrVWVrDCVQGOX5WKFYDUxduMFZjODTSD8URHFHYVR8GPbAOBTDSJ8uCCHWMTwA6LNE6RT [file] Comment g0qlaAHbSDZerWWaEFJpHmqhhzCpXBVuzNToK2OczityDNjfXO4xDT5svYyvjLObbAWyEGXhMdOxt1is d193eHWng6kyVJJLhkhzzWr3kMllI71pn3J1MwrlF55lpNSoYCG2YNVoYCCfmLErHWQkWVI8KDFzmPJv A2wiNXJhXM8dgduoXDjkQOwpZSHctVR5ZILlxRLqH7K (test code hBUChJXugQTRjpft1KoMcKs8tqLCmoXwcOMesXTGpXWM5CbZsIME1YAK2ULq7iMNsZdZrkIkpOGnwDQW 3BnGjIUj2xYRsCjOnsBh9EQByKSQ5CDd5ZFk0gTE7UDVphUb3BkXeMWG6RcjuJFg4mNx5IJXoiJm9DeL wDYA8CJYzIYIxoQyoxK9dBnVpKCSQV0SkZC2xyZUwHv = 9835) DueGUkaCPhBTNrlmlqCEEgWYsyStJdIXQjDPftsT95ScMhWPblXY8asQ5yflVuPaHPHVFaMFHhmWPOcd ztYZH6AQX1qW6sOEIvCJS3ZFX2IYnwKhGqmV2fbXKcJNRpxiFqkpXlY3AgF8RlRDFmtAm5dIWabSU3YL 2cTMSkr9jdgBBpXLU1aO9vJWQkXXK1GGQcJWZuiE62H BBnudDaY3PdS0ugj50hPJcpUSBxVIKxI3TcjSUwRyOCBPXgSMBbwGYBKN8qCBPkrEqolZXsngSumm8pf BT6UvBLPXulATIbHH12DWwfQaBwPgUzQF8eKId6gDCpHT7eBVWpLTyoyCirQgUycZK2HBmsNAW3VKE3T PAxRjOZNQIgpJ3wySH0BHRyqXEcZPTdgpUrf7FnXCCu R3CflQVGFMBhp9Yze7ycCyR3SR6hQLEjjtalDQJ2 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: ResectionINVASIVE CARCINOMA OF THE BREAST: COMPLETE EXCISION - All [id number] Edition - Protocol posted: 09/13/2021 SPECIMEN Procedure: Excision (less than total Checklist mastectomy) Specimen Lateral ity: Right TUMOR Histologic Type: Invasive carcinoma of no special type (ductal) Histologic Grade (Dell Histologic Score): Glandular (Acinar) / Tubular Differentiation: (test code Score cannot be determined N uclear Pleomorphism: Score cannot be determined Mitotic Rate: Score cannot be determined Overall Grade: Score cannot be determined: Post treatment Tumor Size: Greatest = 9864) dimension of largest invasiv e focus (Millimeters): 25 mm Ductal Carcinoma In Situ (DCIS): Present Lymphovascular Invasion: Not identified Treatment Effect in the Breast: Probable or definite response to presurgical therapy in the i nvasive carcinoma Treatment Effect in the Lymph Nodes: Probable or definite response to presurgical therapy in metastatic carcinoma MARGINS Margin Status for Invasive Carcinoma: All margins negat krista for invasive carcinoma Distance from Invasive Carcinoma to Closest Margin: Greater than: 5 mm Margin Status for DCIS: All margins negative for DCIS Distance from DCIS to Closest Margin: Greater than : 5 mm REGIONAL LYMPH NODES Regional Lymph Node Status: : Tumor present in regional lymph node(s) Number of Lymph Nodes with Macrometastases: 2 Number of Lymph Nodes with Micrometastases: 0 Number of Lymph Nodes with Isolated Tumor Cells: 0 Size of Largest [place]y Metastatic Deposit: 7 mm Extranodal Extension: Not identified Total Number of Lymph Nodes Examined (sentinel and non-sentinel): 18 Number of [place] Nodes Examined: 6 PATHOLOGIC STAGE CLASSIFICATION (pTNM, AJCC 8th Edition) Reporting of pT, pN, and (when applicable) pM categories is based on information available to the pathologist at the time the report is issued. As per the AJCC (Chapter 1, 8th Ed.) it is the managing physician s responsibility to establis h the final pathologic stage based upon all pertinent information, including but potentially not limited to this pathology report. TNM Descriptors: y (post-treatment) pT Category: pT2 pN Category: pN1a Gross q3dovUWdOMQavRCvFIQfXacttqRaEPOrkOVnB0PzuhvmDVupYB3cAY9ykRsbdECooUAyAZJqUqUqq4ky b174kYZsc2tzLCMJfmglqCy2qYzgA52jc4N9SrviS9wzJFTcTYeaPFVkXFejiWYcXNo0JRTkeMHydsBh RrJwSNKjzMBdgNA9DUJoRN6iydczASvcERlbMTFnzfE Descriptio 1MCJncIJnY5WlAQHdLY7nwdtnCQO6OHjlWCRiRCH6CsIpBOGot0Cvynb2AoK4WQedHYLwK3PjK2XxARg vMYX1HOAnLVYgYRLuVX5OXxLkXKZlXov6SLWvDMZLHLGjQsE3RQt8CGQGMCStNKCuUQe5XXP5ZdNxYEK SIDEyMzAwMDAwMjEgXFxuaCBcXHQgMSBcXGZsIFxcbm n (test J5i8obWRYwqAYdQWT0DLiwgQYbZCFbLUZmQUhdCyFBYiPiZvSyNEP5ZmL2JyO7JYq4UMDAYuFzFoYfWB EdYfIpNDGiPYn9KYp1KDnPMgHoQqVbQIL1JoKrCRE6XPd4ZMedbUCwAKhnp7EuDwCoBALlYWorkhJ7RK GqrcKvxTggaP5xXuflxdPyRIU2MWOtpazoOEVnSSNcL code = jNfSWGcM6wjNeOeLFIySYmcBDNrCiHoNOsuYqLyI4PycIhtVDuzgGnbrAmlin7vRSwvYIuzqSvqnhkaM AHvQ6e7YEG0gCnhQPM8FMVirtKvSQLpf2JqRS4tFPZvtTMzqK40cEQlURXaKTwyWOr7sDXzEALuEvYcS DBouaEzwR6nSUAycUqauBBoBC7hKDZ4OYryJ6AasRga [id number] zgP7rUXjNtQwRTElHIPzc0Q9GtQunLZbfP8oyeNcRILyt7ayMBVbPlI4ZXPwEH6ai5IkZvsbVyMyDtih KMYgZWF8SqDksHWfYtYsfEYnHrUsS34bDDnlkyPiDNArJW0aHZLkZaIwZIMfxI7fUTM5vETbcLXzUOMD fsRnLcmxqFG2PONvpXIdWC7jEY2qAFKVZEBTOKEyi5L ) [file] 9VtqtV9KDQspe6= Intraopera z9yztGAuBGUedPRlXZPhYrizcvFpSIDntHNwU9LmqtkqIMezIO6hCD0crUmicUWonCMeCBSiUjYii3xd i083xLQfr6fsILQOlfkjeNw8mNtlO34wn8O2GqteN9xfDPFdZPlhWMUtGNdnmJEuESu0UBPlnVSbabRb FaXsESNfmVSguTB0SIWtWX8bhylrGXwaXQadNHZxshW tive 3IOEntJSqQ5LvVFIqPT4leuyfUFO6XRkeOPTeTXU4VeSrFOOgh4Dqsuq8XbE5RFpiNJJhU7VqH1CvOZq wHNL1BZNrPRSvOGNiBJ3HMsWrZFOhRlt0OQPvQXMAWANvYyG2SLj5LICGCSRhEEZcYHi0HEC9XzVzNSL SIDEyMzAwMDAwMjUgXFxuaCBcXHQgMSBcXGZsIFxcbm Evaluation H3i8ayBBKuiSFeQSG0BRjqaUQeLTAcYUNtDWfsIsRDCcFdDuHmKGR0GlI2PsJ4JMn9OFIYNmTeEjYwTD XdCoKiRZKaPBv4EGk3YTnYMuYhJxRuLoidRHBhOGB9RPs5BOurvTKwHZrue0QiVtNdQZMiONokszY4ZG DarjCevQjklM4lRwczawRcKMM2FQVkqkvmNRBdWUYuL (test code mCkPMKtX6kbUhAvVZOmMOiyYPSwHeBdACDHOX90lF9hfNNdgN6cgKVgg1JiSHIvgWqezNCgrVaqnwtib ZAqZBciePeojstaq5oxGvWwMKhjhVRhsnAhMsu0FKTrdvTmzk4pYOL6LSZzjQUwwd0bYVZ5PL5tZ77kv XJpgyRoHUEfaOImGYElbr9rNNguuS9gYNvrqyCsIDE1 = aYG1NFVihjerv4JakDQ4SKXqPWRerWLbUBJbDOrvX2XdgRt5XYgcywYjVYKtuaQmNbxzJRXqsFLhAVfp gHrzCNnfaA30OvZlEvBjKSE8QYW5UJHtWfWbNMSmnD2qlFObZDyJW2SavGZudKIpwTkiCpexoEW6VUpr RkrinC4obRIYYMEHBnkJOwcladCoPZ8PZZ3JOeORXH5 [id number] 3DgTnKMG1ZXnIL1FClBP2Rlf2VBp5bRwmMfvvljDooSCxHrPzeO2EGoypRpivsIO8YIidCuqibH6twBC YSNBTRjjSKiqkxqWxPN6UDO5SPU6UwGHjMYU3gGH4PYIMVaiafBR5rHC8nX58UTNjKMQicZUxNMjpC16 1PZLaQTlmYFIyOdWehAUcLQRcjrPtb4TmRWjeeAkyII ) RaDpJ9TUFekXOuHQJ9MC1rwCtaHPQ2WLfbJLVpZ2XpF2VfDGqjILV0BPHcCdHqDVHcJB8WOqYaHVMrWk s5OJLxOZc9WBd6TC7KKuWxOUYkPMMcRGF7XURgZRk7PNwlGP5JCVLxLAJ1VvL1HTToSUSdKFXzVGd7UT NwNQzlreOhHMxyJdzdQNucR47knKYyUNnlGdKqXRlpr TcpKHBsCKR5FJRkFmczkUClVZKshrJkv3VvASimlRwrWOUvDkIcxZwbgG9pRkdyqaWaMCXdMRIHHD30j X4mzEBldC2hgAUit0JmPYHmkWjdoNYpkMbqvfirsZFyQOkcpWoasjjdq0aoWmBbPLCye8YbRD2xGJOji SRkGFYytxBzbg5lVVZ0UPLzbHWdug3qHOnxCVWklfKu VycuPNHxjJVrVRaxjDgfWWirdS68RmMls0DxRPwevUwgHHZiBpQjGhKsR5UzMM8yfHCmbEN3fKEcE2Xh X0oqx20nIgJZYY7VTEZhs9OrO0I5IHCmHUdrf6ctBWOoKGyoy0JuWFdCNESQDD8GLI3gnHX1VYuKM0NJ K9gDvCQrLPV9oOO1HIGDEditnAG5xEP5eO13VZIbHII zfRPcZWfzE565AFn1GGApBVskc4lhPUWfPWldn3NgTIrKRVZVOO9VBT6viML0VGlHB7XPIHhpWBEoCse nnVGCIJJ3GEdtlOkhfFs6t2fepNZde1c1TLjjAAF0rPtdnSOtzomxuwTrz2ccxZhrm8RotPUhCW6bxXV gp6vjJTNnuZNjBYM2RKgepOJoOEOsIGPsIOqdScDJXp RnEhTwOFF1ZaE5WsQ0YQn1YPIYGoBzDtOlHYEvJtTpSqGsNMl4SAn6VIpEQoWhQjIaUbqeBqN1OWA8YE f3XIdwiOWbHWskn4VnCiBzYWWdFFdscmF3GDZkbuKlx3HsYEBxFVIaS4qeJfHrGClrVAF9MXRzuzmwDB NoNZOgWnZcPVCvI0igUhFhXIZdASdhOZRjGeTcYQKAR B95sE7xyAJfaH1jsXUig8YnSGIpuHcxzWVupEniqznrhLYdXAivyMgwxpjdz4yrTyQhYKSwx7EpYW5pE BSpqTBvONDbfcNutj2pGsQsQYK9kre4jkVsLkQqGKOtznVyPosfMKOfwYTkXDqwuVatBVegaX40FrEqB mWeXUEjWBLiaQ7lsAXeyBMqXO25AdGYZE9QFFZuc2Rk T0Y7UZSoTOrxa0wyRIKyDLjcw4DoIPlDVXBWDF7KMP3ezXW1QDwGK7MCL1iTdANtAUY5vYP2ZHTOHebj yAE2pMY3lZ96YUPaLDUarCOmNNmaN241AFb9VOBbPEfqv1mxZCIhRAgju8NzGHoUPDXFAY5CSH8ptSR0 XUyCM6TOGSzrSKVbQejvwUALSVL1LSfzxCayeZy7y7o ekCGld8k3FXdiMAT5nHuglXAxrokneoShVRCcgtheTYLgWEAcHpMkTCCbS3nvTLPwr6aevXlws4TeoQK yEC5srBJqb1taITBcxKRsHNW9OErccCVhZTIeHWJdJPnpGlNYXpAlMwZiWAQ9EtQ7MqI5FBa1UUEAJfG uDlDhYMQfZrWyVjIsHXt3EDd2FRgICtGbQaQpZtblYR Q2CAO9DRj3ZHqmqYYwJQhxp3KyPsPaLMPjJZkwlvN8FWVppkZop5PkIFSsQAYeF5ndBrFpOUcjOLE1UD LygdimVJJtXGGcPkAyTWKrM2koRpZrWINzMYfiZVXdEqOuHTEPIY77mK1elXFyvS7olDUji0VgXDCllE axiSVyeInueonnwEMpGKuzpAovcdqvc8jgIbQuVHKmj 2VpLK0iFWTmfBBdNFIlriRwpa3gNgHfGGN2epy5xyV6DAAgBQ8yYnZ7DUIfymjaYPWrUVfsRnIhVErtd wtgZOclKCTFJAEywpX1ewTtWVTpHQ2ckfRpOXgHD5HPPpiyPRDdoQDzDTkiNCRvXPNqvCEKx5DnSLfuL XEjE1MqD4IxsbP9STNftxonAzpziNtoo0OacHWtEXff VUVbHGOlOSezJDQlE7AGXWLnWYSoHTR0BAEhNNz6MXosH7RTGCXdTDO0CuV9TSh1OcE9HJs0TSGBLg8z SZDxJYJ2FbO7JZT7KID8GeLuYFEtCmOaUGNwWPLlXFqlcBIkSI8djKszHPIkDLLtTVB6HVTvlENOm5Qo FOFkNtHUIiutRYDicTNgOUxsFbByUCGwfMGEd5OqLLn ooOIxmifsZNWrNsKmMqIkWSW5IUOnwTfocYasxvfnnQMuc8EyhGTweSCfFA3fw5SeE3YmpSq9OVhjD3S zsYbinzF9yIQkAiSyLKSwIRZcf9M4PuKadH3lpFXsqWj2F7bix3PxMFObr1OkUYklvralb5GpmNOyOBt kxYWoPXdxIUipaiAkGDRrawDyt5W8EBQjm1D3GJNtYS EnqN1jgcEbTUJcf5syQMLpZqY5PBE4MDKhpwonSGJyOVtlAnYpGEquioodQEfdJGDjSOStaLFnPW7nSY YpH8ZTZC1fV0SjI5FpZJCoCdHgdEL4jNRwqITmo5AkLWh5WQ3kRRPeQYEhGTPsm9G3NKCbl9UhuAVpH6 doZaBONT7QQHafmHEaLYWtmcZmy5GaQQlaqSjpIEHsC oF3TDIprMSxIBX0WF7rbCglNJJmR5SiY3BhyuN5PXItjw1= Biomarker a7ztyZBsQQIrwYEgQEJpTbjjimNsFLXcrNCjS4IebkomZDmjPU0rLT2uvCqpmRAvaFHhDNFzTyHme9kf q246lTYhe1tjANBStxvqkNy6cWcnY12qr6Z8DchgF77dzAScYYP9JPVfUWQyaZMuCZPtEAI5JOZyjMZc S8ssQJUsJX8friylDBojEHtrPMUatCL5BFGbcHWnE1E Block(s) rPBUdNAcdILIsmey0WpOyKt5loDMphAqdGIgoEGCtIUUzKLtnENGtHlMoFFDhjNHqlKJ6eM4mzyReuI3 zhugrKYknfGJhMG5mkx5kzUPCxV0lrwmgUZWmfNDidM== (test code = 9841) Disclaimer w1dnnYVpBISxkULtUuHcVBZyJNZfv3hoHSOmsYPhJaFtWuGhXcJuXpfxgKVqLLYjKpLej5twq022uSPz j6gfYYDuIyT2tZViZPKflLWtY389DEAaAUlve0wfe3UgNTVjvMVgb5T3STYMcsgwcJs7bCokW99lr2X2 MewyS5txIVScXKYhR8JrLG0jALKhSze4ROL6QTW1JJY (test code fRMCxK7FqDB4sBDOipYGrULx1x8lpiCtdEWRkUOW2h2oiNYabfxIpNI8hzh5acJz1p3mscjIqJYYjQQM leCRDUFPdJ5KlaOczOy8beJh4iIjeLyqoMUN9Vbq8IU0wsn65glk1nVzfGQMsfrobTlX7UKwsWEDjhbo dOIt2SXadEDZkeCJ9ESIxlGLdG1DrVJFmDM1mmhc7RJ = 9844) N8LJjxXJMuXbJ3VLTzaPIlUHQeyVpuEYojv256YSO3WmSnJB1bV2Fkf8X1fR2asJVkWBWoqWWqPlLxFR Flkd0kdNNnVOrjz1KiRSR3btX6wFPodVNyMTCzTE40Meqmf0GjSrhyROB2ZGAqdfIoc6Fcx7hvVdFlgg ViV2hkY2QgVQYdDFCeRQWfKcOfdeAos0Oab1ScqOTxp Nk2d3ozMVYyQOWeqQgeo0ngPGC5RPHlD9D0bVTxq8mdLTlwYJBftAN5bdY4PMRmvKZiX3UwwH0dPNIcN T3enyd1h5nuKES7GHvqLLYoBeC5saL6SQFnyBBeTIKroNarVGgvg584JWD5RxTuSLMir2TrV7TfpMkgX 47zbWxsR28rDOMswWdtrM7inYfqdA6tKmVcSwVyQUta rUtarSGmtovwENjpfzN4UFgeanejPGPhBNkrR1cnGhNuKYFvwEhsJRpqv1PkUCGzOOCgJqjcpvW5YCWE p86aROGpk7MoSUFgjL7flLWqNOjtdyWwtXI2TXqgovHxOlDwxbMoITDgqW7qCFRpTC6cZHOtvcBxeo2s rbKbGATpEFTtG2KbwizgkGiefvKpZZZbvh3yvtYlTHM 1MXEEVO7AVCNvARPlm70iFAJndHexlU0ldIUytrPbYFJwc9VheU1toEBDQUPsG4bjGV8fRYngb4TpvNX usLRmbDL8ZYSum8MjTsJdnpOeiIDlkZTtH7FlgLewO7qrHFBzNTKnseTpxNKyh3PgVDVfpFS8uNZpIE7 MYxFIh49wZAIdWZKLzrPnDJGcsVljjEJ5jxQ0iP2oZr APNaKloCIpmZQjUpwyOMWhb422aj9tadP5IPNzTDQjexvnp9ZxGZByBTPcxJ63QJQrNOHeeh8tqsjzgM FhswMvP1Vsszc7zE6oQSBiPCwhPAYiXPGwBkZppVXoQwTyEmGdcBbxsYqlLPlsYxOtNOZrGFwcU1ruRv FcZnMyMlxwYXJ9 [facility]Muwgndefzdnv-[id number] 19:14:49 Test Item Value Reference Range Interpretation Comments COVID19 Not Detected Not Detected (SARS-CoV-2) (test code = 43538-6) COVID19 SARS Pre-OR Procedure Indication (test code = 90608) Covid 19 Comment See Note The george S ARS-CoV-2 (test code = [place] [address]) use on the nathan s [employer] System is a reema l-time RT-PCR assay in tended for the qualita tive detection of SARS-CoV-2 (COV ID-19) viral RNA in nasopharyngeal swabs from either individuals norma pected of COVID-19 by their healthcare prov ider or from any individual, inc luding individuals wit hout symptoms or oth er reasons to susp ect COVID-19. A fac t sheet for patie nts provided by the kit planner ([employer]) can be rev iewed at: https://www.[employer] .gov/ edia/529846/talib nload. A fact sheet fo r Health Care pro viders is provided by the kit planner ([employer]) and can be reviewed at: https://www.[employer] .gov/m edia/219409/talib nload Results must be interpreted wit hin the context of all relevant clinic al and laboratory find ings and should not form the sole basis for a diagnosis or treatment decis ion. Positive result s do not rule out bacterial infec tion or co-infection with other viruses. Negative result s do not preclude SARS-CoV-2 infe ction and must be com bined with clinical observations, p atient history, and/or epidemiological information. Th is assay has been authorized by t FDA for use only un kacy Emergency Use Authorization ( EUA) in laboratories that have been CLIA-certified to perform moderate-comple xity and high-comple xity tests. The Microbiology Laboratory at [facility] CLIA Accreditation #[id number] and CAP Accreditation #[id number], verif ied the performance characteristics of this assay. Int ernal controls are us ed to monitor all sta ges of the test proces s. [facility] [place] Breast Complete - Right 2022-04-27 19:12:30 Test Item Value Reference Range Interpretation Comments Radiology Study observation (narrative) (test code = 82266-6) IMP (test code = IMP) Favorable interval response to therapy as detailed above. Recommend appropriate evaluation and treatment of this known malignancy. BI-RADS Category 6:Known Biopsy Proven Malignancy PXN (test code = PXN) Genesis Pichardo, DO - 04/27/2022 CLINICAL INDICATION:Patient is a 66 year old female and is seen for response FILMS COMPAREDThe present examination has been compared to prior imaging studies performed [facility] on 10/26/2021, 02/09/2022 and 04/27/2022. Images were obtained in multiple scanning planes. Real-time sonographic imaging of the right breast (including all 4 quadrants andretroareolar region) was performed. Real time sonographic imaging of the rightaxilla was performed. Real-time sonographic imaging of the right regional nodalbasins including ultrasound of the chest/mediastinum to evaluate the axillary(level I,II,III) and internal mammary regions was performed. The known malignancy is identified in the central retroareolar region as anirregular, hypoechoic mass with in situ clip measuring 2.5 x 1.8 x 1.4cm(previously 2.7 x 2.0 x 1.6 cm 02/09/2022 and 3.2 x 3 x 2.7 cm 10/26/2021). Thisextends to the base of the nipple with nipple retraction. There are no newsuspicious sonographic findings in the right breast. The known metastatic axillary level 1 lymph node is also decreased in sizemeasuring 1.9 x 0.9 x 0.6cm (previously 2.3 x 1.7 x 0.7 cm 02/09/2022) with insitu clip. A total of 2 abnormal level 1 lymph nodes are identified. There isno additional axillary (level 2 3) or internal mammary lymphadenopathy. IMPRESSION:Favorable interval response to therapy as detailed above. Recommend appropriate evaluation and treatment of this known malignancy. BI-RADS Category 6:Known Biopsy Proven Malignancy Lab Interpretation Abnormal (test code = 20949-7) [facility] [place] Chest for Breast Ultrasound (Add-on Only)2022-04-27 19:12:30 Test Item Value Reference Range Interpretation Comments Radiology Study observation (narrative) (test code = 27651-0) IMP (test code = IMP) Favorable interval response to therapy as detailed above. Recommend appropriate evaluation and treatment of this known malignancy. BI-RADS Category 6:Known Biopsy Proven Malignancy PXN (test code = PXN) Genesis Pichardo, DO - 04/27/2022 CLINICAL INDICATION:Patient is a 66 year old female and is seen for response FILMS COMPAREDThe present examination has been compared to prior imaging studies performed [facility] on 10/26/2021, 02/09/2022 and 04/27/2022. Images were obtained in multiple scanning planes. Real-time sonographic imaging of the right breast (including all 4 quadrants andretroareolar region) was performed. Real time sonographic imaging of the rightaxilla was performed. Real-time sonographic imaging of the right regional nodalbasins including ultrasound of the chest/mediastinum to evaluate the axillary(level I,II,III) and internal mammary regions was performed. The known malignancy is identified in the central retroareolar region as anirregular, hypoechoic mass with in situ clip measuring 2.5 x 1.8 x 1.4cm(previously 2.7 x 2.0 x 1.6 cm 02/09/2022 and 3.2 x 3 x 2.7 cm 10/26/2021). Thisextends to the base of the nipple with nipple retraction. There are no newsuspicious sonographic findings in the right breast. The known metastatic axillary level 1 lymph node is also decreased in sizemeasuring 1.9 x 0.9 x 0.6cm (previously 2.3 x 1.7 x 0.7 cm 02/09/2022) with insitu clip. A total of 2 abnormal level 1 lymph nodes are identified. There isno additional axillary (level 2 3) or internal mammary lymphadenopathy. IMPRESSION:Favorable interval response to therapy as detailed above. Recommend appropriate evaluation and treatment of this known malignancy. BI-RADS Category 6:Known Biopsy Proven Malignancy Lab Interpretation Abnormal (test code = 13142-5) [facility] Digital Diagnostic Right with [id number] 19:11:44 Test Item Value Reference Range Interpretation Comments Radiology Study observation (narrative) (test code = 25130-1) IMP (test code = IMP) 1. Findings consistent with interval response. Ultrasound is scheduled to follow. BI-RADS Category 5.Known breast malignancy. PXN (test code = PXN) Genesis Pichardo DO - 04/27/2022 CLINICAL INDICATION:Patient is a 66 year old female and is seen for breast cancer MAMMO DIGITAL DIAGNOSTIC RIGHT W TOMODigital Mammogram evaluated with Computer Aided Detection (CAD). COMPARISON:The present examination has been compared to prior imaging studies performed [facility] on 06/05/2018, 08/07/2019, 08/23/2020 and 09/06/2021, and [facility] on 10/26/2021 and 02/09/2022. FINDINGS:The breast is almost entirely fatty. An irregular spiculated mass in the retroareolar right breast 0.4 cm from thenipple measures approximately 2.7 x 1.9 x 1.8cm (previously 3.6 x 3.2 x 2.7 cm10/26/2021). There are associated pleomorphic calcifications within the mass andan associated coil biopsy clip. [facility] pathology review reported as IDC. There isassociated nipple retraction. U shaped biopsy clip noted in the right axillawith associated node consistent with biopsy proven metastatic carcinoma. Tomosynthesis performed in CC and MLO projections. IMPRESSION:1. Findings consistent with interval response. Ultrasound is scheduled to follow. BI-RADS Category 5.Known breast malignancy. Lab Interpretation Abnormal (test code = 02994-9) [facility] [id number] 15:03:01 Test Item Value Reference Range Interpretation Comments Radiology Study observation (narrative) (test code = 98515-7) IMP (test code = IMP) Partial interval [...] compared to a prior imaging study performed [facility] on 10/26/2021. Images were obtained in multiple [...] Malignancy Lab Interpretation Abnormal (test code = 37941-6) [facility] [place] Chest for Breast Ultrasound (Add-on Only)2022-02-09 15:03:01 Test Item Value Reference Range Interpretation Comments Radiology Study observation (narrative) (test code = 51553-5) IMP (test code = IMP) Partial interval [...] compared to a prior imaging study performed [facility] on 10/26/2021. Images were obtained in multiple [...] Malignancy Lab Interpretation Abnormal (test code = 52220-9) [facility] (SARS-CoV-2) PCR- Asymptomatic [id number] 04:31:40 Test Item Value Reference Range Interpretation Comments COVID19 (SARS Not Detected Not Detected CoV-2) Result (test code = ____[place] a 33289-8) qualitative reverse-transcr iptase polymerase tim n reaction (RT-PC R) developed for t he [employer] 680 0 system and inte nded [...] patients provid ed by the manufacture r ([employer]) c an be reviewed at:https://www. fda.go v/media/623993/ downlo ad. A fact shee t for Health Care pro viders is provided by the kit planner ([employer]) and can be reviewed at: https://www.fda .gov/m edia/368039/talib nload Results must be interpreted wit hin [...] were verified by the Microbiology Laboratory at [facility] CLIA Accreditation # : [id number] and CAP Accreditation # : [id number]. COVID19 SARS IC DESIGNER CUSTOM Swab Source (test code = 66836) COVID19 SARS Pre-OR Procedure Indication (test code = 37080) [facility] [place] (SARS-CoV-2) PCR- Asymptomatic [id number] 04:31:40 Test Item Value Reference Range Interpretation Comments COVID19 (SARS Not Detected Not Detected CoV-2) Result (test code = ____This test i s a 91265-5) qualitative reverse-transcr iptase polymerase tim n reaction (RT-PC R) developed for t he [employer] 680 0 system and inte nded [...] patients provid ed by the manufacture r ([employer]) c an be reviewed at:https://www. fda.go v/media/321047/ downlo ad. A fact shee t for Health Care pro viders is provided by the kit planner ([employer]) and can be reviewed at: https://www.fda .gov/m edia/051542/talib nload Results must be interpreted wit hin [...] were verified by the Microbiology Laboratory at [facility] CLIA Accreditation # : [id number] and CAP Accreditation # : [id number]. COVID19 SARS IC DESIGNER CUSTOM Swab Source (test code = 73418) COVID19 SARS Pre-OR Procedure Indication (test code = 48444) [facility] [id number] 12:28:58 Test Item Value Reference Range Interpretation Comments POC Crea (test code 0.9 mg/dL 0.6-1.3 Medicati ons, especially = 09186-3) hydroxyurea or supplements, garcia ch as ascorbate, can interfere with test resul ts causing a false ly and significantly h igher result than exp ected. If a problem is garcia spected with a patient' s result, a sample should be sent to the laborato for confirmatory te sting. Method descript ion: [...] Normal eGF R >= 60 code = 84572-8) mL/min/1.73 m2 The eGFR is calculated u [...] Normal eG FR >= 60 code = 13975-8) mL/min/1.73 m2 The eGFR is calculated u [...] [facility] code = 98776) [facility], [address] [address] [facility], [place], [place] [address]; Point of Care Lab Dir tiffanie: Rosalind Neal MD [facility] [id number] 12:28:58 Test Item Value Reference Range Interpretation Comments POC Crea (test code 0.9 mg/dL 0.6-1.3 Medicati ons, especially = 11605-0) hydroxyurea or supplements, garcia ch as ascorbate, [...] Normal eGF R >= 60 code = 33580-4) mL/min/1.73 m2 The eGFR is calculated u [...] Normal eG FR >= 60 code = 85216-7) mL/min/1.73 m2 The eGFR is calculated u [...] [facility] code = 75241) [facility], [address] [address], [place], [place] [address]; Point of Care Lab Dir tiffanie: Rosalind Neal MD [facility] CenterCytology Image-Guided [facility]NA [id number] 17:01:27 Test Item Value Reference Range Interpretation Comments Gross Description (test m5xxoNDvQJTbxWYSESuyW code = 4083994104) IgqsvEyTTEcwAHnL4Zfgn vhIQueAW6sDH8zvEzgzIZ gbYFaKV0VBHGiUlVbODWr cGVydzEyMjQwXHBhcGVya XY7JUVtYO6srarcWPcvIF kfYHLdjuX6FAUbvTJlH2A zJUXuMV1hmywrPYC9FYat oJ6clnDKBvthAy2neIBwr HtcZjFcZmNoYXJzZXQwXG CfhKnsXVAkARm7sM4UDzf sL32mc8Z2Vow9RSToLOHv Q4VsHF0tTGTfmVXcD39UE optNJX4EZMFFisdFWPqTN 6Rc6osFBNtfAHuYSZ7GLt dgRTsZSRaDEJzUOh9GQKq FYssoCJfBD1kkAjsZrkoz Pjcx5UixBIlEKseYRJnKT HtDFkoGAWgFM4ODhPoWXL 3FAwwFTcgMGg9UNa0AO2E BcGmFQFkSPW9LBh2TXGsK Cp5REdgWQ1DIBOmXsX1EX A6AxDmHZZwHNbsLDa8GGT gXFxmIEFyaWFsIFxcZnMg MTAgXFxmYiBcXGZsIFxcb sO3KDBtRHqsJFKoFcClMH BBOlxwYXIgDQpccGxhaW5 gLNTuY85fu4GAx6BpZA6R PWq5wdHpkxfumG2sMNTkk tFcBTdhjPVbY9foY3ZsZF SwTxQpE6HxT5hcZG9hPLL ct8O4hhTqCofqEMCgNHic IERpZmYgUXVpazsgNyBQY THaQ3UacF1qT7kqBGPpWE NqvrUNWpVjUQ4zTKJakPY yvXAthPevVuyqvHJ6OFbm LasdlV4kiPJHALEEUsoHH rkmyyBhNO5RFJOOUsRQSY 82PfP1ZfJ0SMlllXsbIoc vmiNkePKhZzZSsN9beH92 QEnrAOIou7SjY4Iug6klw ROtNUidYedvqYOfhrT0HS jTRRJLSYfWKxSrQD3gZVy JTERCRUdJTnwyfXtcZmxk ekAudVErDlLSmZ0idJ7fO Dy8XTVlFPsda4bwBTInLT iqz1ZkHXeREXWIYJ0AHN5 vdWY1N5cYDUVJXBqhcXgk TsxborPzzTQqIiKUgP6dc EbwzW0inBBvD3maaCEzbJ VjdFxjZjFcZnMyMCAgZmx 5oAJ9BEFdZGcuu1urZIIe NDmcb7TxISvTENRALD1YN V4pwBZ0GSsTGGKTAGfdCI Y3EIezaTT1c8gmzQEvt0k 1GDiwHGU2lIhlkOXyfcqd dHJjaFxjZjFcZnMyMCAga J8qIpRPZWsaTDYhCMikS5 MsNLEuU3LosUFVtD9tb9g tNIDhZFdKFRDiF6YxuCUz PEcoY1UeTAulVOVdmc5om GluOiBccHJvdGVjdHtcZm ijlIM2EJklJewirR3ioVH VUUKDAsmKYdqrbtSeWY4J FT2XXdGAJC49MMOyAtC7Q 5cBB7ERNRPHSDI0LAj6bB W6bQ97RYKwQPCwaPJzYQx xQ934YJGxKHTkDoS9TTRh THxjo3krIXWlPVeeh2JsC TkMGPNWKV9GVL4oyXO1ML zFM8LXMVg4RNQ7AnrymGH RFLPQNZHQJHacsZq0CYa7 fXtcZmxkcnNsdCBcJzFDf K2zxErwwR6tbOKtX2vtNw DkPYVjZMNmr5TeZ3L5HAP pNWelt6ygNOSjTJkbz5Ui HLhCRGFJXC0AQI9pgHX1H SsCL4XCW7qIrVhotSQ4Qa 6TaXM0vOgkcGj8u1fsjZR st9z8KVnmKNJ5xHV8Cxbg AV18VGXjSGzkd1kmFIXbB Pusc6VqPTrPLPDEMI0OVC 9spPY7TIiQK7WAEHu1Bgi 5vM8XQ5psmDw5BGy9lDjm RkapfsEyjYCiJkMXrD7tm RvbtK7lrGJkX4rzVeVcFY vdTLWuUJkvU7RsOHLqjcT EGfHnqeH7CSRgC0FkNGKj qtUQZilugKWfrHS2PLPiv 0Tag2MrEJ25PVRuawJiuY MffY9noqZzSEZepQTyoYI 3YXMgbWFkZSBccHJvdGVj lEvtByavcUM2LZepVzgmc D4roOGBUCIGLrrNKwwacu PfDG0VVXIDUmCGUT15SxO 5ZvX5LZs0lUaxDwpjacXv iTQfMsLHrB70KAnrFfaej DX3QUjxTkwjlZ2teZQKCB TUNefKClcxjcRtVI3TMTD DND1NvLJ7SeR3lRS8CJ64 MDBbTLOjqIBzXYujM489J JFqWLhhRZu1mvBnDHDvXQ qkuoTmZFQltGHRkr0mK4H uZHUuDQpcdiBTTUFSVExJ G6QwWEAQDCTMOGTuLnINR H7bBsE3UfD1II0yOiqmQl E0KwQ6lLG5SMEFRUVMSZk KX7XdPQJGQQSLKHRuGR5T WEwSXOLTMZVQX79OCOGQY EJTJ4PYZ2vSBUUth9Vkz0 1jsXoPBBNQQZDOR05UTRZ PPCPIY8ZMSGODYZICXYbC KCVOOr9FYCJEGXSVQE2GQ UdJTiAxXHtmbHVpZDoyNT B2ACe5LBp0bXRuj7SxxVZ 1FfV7QtRnaZDAKNWJCQtZ SEOHDt0YUKLMUKSCOI1ZE vXkX3DGUD0QRt1ARZHEUH FZNA0XSDlKTbMrP7JDLZ6 GDy7LQZWSJJOJQJ1QYsPn UHYVO4DSZjEOA1umSJNXY KROTDNhOjUJKC2pMMGTBQ 2DGDSKTLAAD26VYBZLBXN JA7OMCI0CWMEflXSUCKZ2 UV6kFKw0TNqiWWYaX4TpM 8XkuwItmENvWQUstwDqt6 hcGBF2MXZwhSBfjRLfAaF qZcdxHHN8ONEcYPguYT5A ZVBxJDR4GPrbpY23hCGwV O2QCYKmEDvhHAUoGZAzjq A0NWCrzPDiRWH7WN2qaKw utGCcerogxqE9QJ0IqN== Immediate Assessment Adequate cellularity (test code = 9837) Major Classification MALIGNANT A (test code = 9839) Diagnosis (test code = f4lkqHZjJEBqbSO9WcOlS 34) CUpf6uyo5GwfFFmwAOjCW jnpUNrccXzlz22dJI1hM4 1AU2oFLVpCbD2LIKafeZ9 Ixb9TNItXUBbkHJzW030y 7zid9hwhaEcaWT9SIGhXP ItA0GtKN7xDEOvwKEzJ86 maFSjPSO2GTMyNKUenCFy THYvZAL3XPKitJKeA8aoV DBvBC8iidelOIqyEEycXX PgxDR3KYIogEKdE2UxZLB iVLdnQCVadtc2WsKiWp7z gCRgfKuiVRnhB9zihI0uN tO1AZnjD3ggyC1vDXq8BO stQXKuqGR6npP4YOWyaFA aX1UncS2cBFZwYG1ssxw6 e7zqYQQ4TUcmNBOmKuY2i cB5NVEewSKwBLutdSKdet xmczIwXGNmMSBBLiBMeW1 bcOXxc6ZbJWUksDozaMQp eGlsbGEsIGZpbmUgbmVlZ PpdGHEsrQekCHRis621VR QxwqudBAYlpEBgCH5CTTR VLFKNTKMsF6QUO3oVW61K PNFTPzTIU5XQXyAwQ5vGS ULUGeJXZ0IbQKQTWKFPDT BccGFyXHRhYlxwYXJ9 Comment (test code = w8etiYEtYEFheCD2OpQlT 9835) RHsl7ryn6ZhjDKlxRVfMJ plsWUskyUrlk06uQO0wM1 0QF8cVBFlWqW2EUSdasM2 Ehs1HFHgECYjfFNwF103i 3ihk5iuyySbmRY1eQdvIK MwjbnvGhQ2MDxpGKVyyto lTTj4SLrkPRLjtVE7YXXe mOHgB5OsLUOsHQ8ipfe3B TH8AYxqTTEhDnS3LZCfsY KgGRVgwVmuCYuld297KAP 5QcLgCMFuxtKodJbpvU2n WwKpWKTEmJDaX6ZtiBMdv E3qxpMdaoCzCGTgxNqsol C1GXRjN31hcZAvMfC2x8N 9DAAng8OjWODnlYyaDUZv p0JiVYNkIClmm7Fkcm3pE HBhclxwYXJkXHBhcn0= Retained/Biomarker i7bplPEwWFAspRO0RkJcL Testing (test code = ZLfo7wlt3SrwNQjbWZuKF 6542) tioPVvsbZylm25yKC8mR9 2ZK2iHWWaIwK4QHYuccP4 Igk3YVPnXTPmcDTmW427r 8cim9gqhhHzdYT8hSkmYV QtwmvqDrC9EKzgNOSegus dLOc8SAicECOelYM8PCAz uVBdY0IaSXIlVM0wxks8W PI9EFkvSGPdYuZ1DNRbrU FvOQCczMeoXPeme119UWN 1CsTsKVCugeHbxFfubM6s ZnMyMCBTUjoxMFMsIDFDQ qgsKFAgUJEILSBXPw9vII CitMVkYL5QPTTWAVR5T2A bsWIaBO9FSFKPWWNLIlEU XGxpbmUgTURMIERROjNTX HBhcn0= Informational Points e8bfiSJsNLXagPNyBvFvZ (test code = 9836) AMtODRay0pwHSGtaXOfUe EwMzNcZnRuYmpcdWMxXGR bNvFia1uqf290tKLoc5vr BLPdRzJ1aAPrBYUijDZuM 464YVVrMSsks2wvm1FoFL RsqDCif6R3SXRRDQxpBZT TCFp1l6yiEtOoMuS3cATd ITvdF2dygjPwgFMlFAGpI Zv7lZ68JCPonL4qaDPwNC xmjcXeMgP7KIsfRMSsOsN 8TUUjqZCiCECeR8ixQVYj MEaoNAEkGEoibUQoQWU2a Qsil3I3cSFnaORvtYckLv JxRlDjEbTUv5VgRJk8gRy cN7CxWFMqDvM1vNEpIHNk XYfuLLIpZTDpmnE4wI30O MujxxP7eECov3Qey96ox2 54jN5scOVhCIP3XVCgVUC nvRKoXNVcWMW8DXSrgNNp G7zeWAVhIT8pesyeHWfrO OynUETkwOU6NSUwqWDhX8 ZtVIQoGEbiGTUjxvj9VoQ vIl9wbDVpiCexBJbbd1jq d2rlbCMnDrj8OTQeJeBeV exxGNalc1Wew1vvKAQaoq 5mKXZ7cZVrbIpdc3M5jLM qKONcvDVzsoXjYVKbos47 iBOijTSulLPhxd5knjPor WBaeWUtZBR6eFBuuwDhIQ PmyVPbUIWdDKRkL2nhDcY gyvCxP5hxK9JxUXFhGCLv ZHCwTxPxcgWso3Qap9Iql MIhjMi4j1mxIKCfDRVdoU llx8wwHXN1ACGmB7T6xZS af8npNUzkGXFegGH6niK9 GUUupBMzQ6SgrZ0yBQIiV E3vyem8c7qnODS4GQrrJU FpKxV0nvY1RMKyuEXtISW sjZedMQkum230GQD2MeBn OWIec4FxF1QnxOavF61ic BxqK68zSWWzyQcbjB6dtA pabH0gKdPqYfXiSZxojMd xvFObhosjCIrewkL3YBpo nmhmOZUyMRqhJ3uwBpYpM ZQlwByxKKjef7OqNRDjKM KqNBrxbXXNp01hUSTvn2H mYZOdsP9sqLEgFOdzecOs cUB2ZEoxquBwLoTpoaHqD DXebB9vRUPuKC9iYJTbwx Umld2kisTcVOFvRDWtP6C hddbvfLcaahJuLQHtmu2s moDtFPH2UUGCMV9AOPIhE GOwg69hJNHprKibdL9tsS CxtpDsUWVhm2JuzB4yfEP OZBKsK3xwJU3sQYwmg6Ha dGQkmMKqoUX6ZHQxj9SfP lJwqpNnbOVguENyR4BdyN bmS3alFRKqLAQfdeDzvCO vl5EkEJEflHD2fZIcCA5S OdTYd36zZZCdYRFQpjKuZ OQzqWidrCJ9cnY9sM8oQs ZKwPjoGZVvs6Wmu1GtDKZ wysApqsWuXJE2KBlzkGEa euaoDAnodoV6WWmxyxjaC HBgNNjxY4mjXzPtINBgdJ bhRVolw2ZtNKHyTIPzGyv hcvS7SLn1ucGhTVctO4Kr pNJIr7PitS2jAGMdAJfwp 5P2xAObSY0vC7rkMiDZwR AavSV0nZ6xc9a2DRzoHt2 sVMAazlzhxUjhxC8aZzSi WcBlPEkqKZ4lFISaF7exz GQfACHlIVYuJ1atJaVuhV 9jaFxmMVxjZjJcZnMxOFx pICwgXHBsYWluXGYxXGZz MThcbGFuZzEwMzNcaGlja FxmMVxkYmNoXGYxXGxvY2 irDtIqK6OzXVPkXMxhsDT oZ9guzUNhRSLmJBNASQT5 ZESyDDE3DJrgQJiuiPC6n 40pNZBESHx2NSg1GJHmYX luXGYxXGZzMThcbGFuZzE wMzNcaGljaFxmMVxkYmNo EIMsEAdaY2nyXfJnA8CjI GZzMThcaSAuXHBsYWluXG YyXGZzMjJcbGFuZzEwMzN caGljaFxmMlxkYmNoXGYy KWtaA8vjIkUuKzAkYbslJ XJ9 Lab Interpretation (test Abnormal code = 60527-8) [facility] Image-Guided FNA Vrkpdsfnhccvzd5974-70-52 17:01:27 Test Item Value Reference Range Interpretation Comments Gross Description (test l0hayYWkHTWzeWXMFUpxX code = [id number]) FssbsKmYMPhxUWsT9Hvrk xwLAraMT5mDZ6uaNynrMT wtPRdAB7HYNXbGnPfHPFy cGVydzEyMjQwXHBhcGVya DY7WOAvWF5xfdjlYClaYV oxNDKrhyB3TEKysAJfR1J qYNThEC1xejriSGZ4IDan bD8jocUYLkvdNq2pnDUqs HtcZjFcZmNoYXJzZXQwXG WehBorQAZuALk0mV6KBtr mA70bh0C9Kiy3ILHkKCWu I9BvPV6mHOZzbJIeG72RB awjSKQ8MONKNjhtRNPyTI 4Ez1jvEGRsaCWtNJP6DCl dhDXqUIHdGNQxFFb3MOKh ODphnMWcRS9ryMdfTniyp Dpwi7KefJFoDIlrOOPnCN JwBHzhIDIqTA1MYgSkRAN 8SApcKRvqWVn9NLj6SH2Y GjFbKJIwFBT3VEu7PVTqU Nh6NSahTE0TVZDyNvR4NK C1StQmMMSzOJhkJLl1DLR gXFxmIEFyaWFsIFxcZnMg MTAgXFxmYiBcXGZsIFxcb sE1IRPxLDrpOKLoUrIbPT BBOlxwYXIgDQpccGxhaW5 sQQCrP13ui9XKi7IhVC9R ZMr8uxEspzajfE6kFPNgv wWbRBdyzSBiB9uwR2RwRQ JgGfTlP7GtT8ahGY1oPBW dn8L2ahKsEdflBYDxOOnk IERpZmYgUXVpazsgNyBQY UUrZ5UcrL5qW2wkQTWuTN OmveWLBbVtQB3zBDTtqKL zvGRgnPgpXeqquUY1GHfp CtpjmY4ocUTWDFXOBuhSW cvjcvLvRV5BJESQJrDOYD 77LjX9CpP0IMhaeRjiTqg vegGwyOXlMwKUbR5ijD82 UCkvKCLxs6IiV2Uoq9gca HNdRVorXfewtIHkquG3IB lXZKORHImCJfIpOI1hQXn JTERCRUdJTnwyfXtcZmxk ukGxdFWiQyAVfZ7hfA2eB Gt6WMJfJEmvt5gcYPKaOR lir1LzVVrJJBGVHA9OJJ6 dbZF8H9iHQZMFQNrwfWck JgeyliWxhEHqEhQTiZ3tn JsgyY9rkKOvX6ydzOSawE VjdFxjZjFcZnMyMCAgZmx 8fTW9EATfCTwlt1ybUPVn HYmil5VwPIsHJWTNQQ9TO K7vfWL4MLwTONSXGBtoTJ X0PTuxaHI1b5gboDCjq4i 8VNlsFSQ5iAtnwZGrmmnr dHJjaFxjZjFcZnMyMCAga O7gSfQMOJfeELNdCEfwL8 XlPCOzD9KpeLODlA4cm9x mEPTzNSfOGPKzS3TlvFEl ASkiW7TaDFdmVBCylv3ne GluOiBccHJvdGVjdHtcZm spvJI6CNgeGquzrQ9wgCP DMCSVGlhRLyrxxoNyCT2D WN6SRvLGBS11CRDpRcN4L 2fKZ3UBGQUDNIL7SEq3hD Z6iF98EKMuPCAmcKWaWVk eT155KHWmACBxZzQ2BYXh IXwfc5deODGlBVcko0NhJ UbPBNNPXU3QVO8anOY7IX aQJ1PTLIj9BGI4TxmbwDQ XIECGMSSGMXnonPe9QLw5 fXtcZmxkcnNsdCBcJzFDf Z8keJqoqW8iyHFbV5kmOl ZuVLBjXEMeh7UfW1O9UVG nYHgfd5vtKBWzTTell4Bd ZBfEVCYDOP4DDV3eoYI7F YgSQ6NCK1rBrImvzXH8Tb 9NpXL2kTlucTd8k4ucnCQ wd5r1KQqgKVF9fLC9Rgkw BV30UZLgWKblh3lgUSWiN Shsx5GoSZoFENBRJN0PDL 8ycFW8KJfOW9AEDQc3Til 0pR0EI1rihXj4ZRt8yWzz XjlugnRmaLEqQiUDkN3ti AyauJ9ywKUeQ6fiEuKvEC jzWRKaDFqfA7CkMRUdqzP RKcHnzvF7PUPoY0MhXQEt iaCPQoxqrUAexSG2VPLax 7Hpw3KmKB30ANOqfzAioX TpbB4mebBgOGTkbCVeuHJ 3YXMgbWFkZSBccHJvdGVj uKscHfwrlWL1LDmiNtseb C7hePKOKEPAGkbFBbhntc FaPC0OGKTIDnPWMZ91NwU 4BkM2YXv0uMehOpajliYq hARnDxZCmW44HErwDnxrj PN5CBdjCskgqS2wwOWTZA OVQwkKAanvwxDnUZ7XBJN XAR0IoSD8CcK6zUV2UD44 VQYhZJXvoIFkIBkdO350E RKaNOtxTPn3koLnAKVtHK tyxvEwKUXyfFYDib0dQ8K uZHUuDQpcdiBTTUFSVExJ V6SqWBRVPRNWVLPaDzTIL X6sVmW8HsX2LC3zOcztQo F9EfQ3xNH7IHMQIYPLWLy ED2WrJKAAFJXBGVCqCH7Y YHoUJDSTPEFRJ07WUTLRW LUKX9MQB3sQZQOsp3Lgs9 2mdPyYBKRRDUNAW26ARTT BIXBPS8EUATGGPWMFKBlB UPUWLr2LHFUSTWODMT0JL UdJTiAxXHtmbHVpZDoyNT I9CMy3EUe1vXAis8IjvIU 3DqU6OrXglUJIRBWATViA XRYEPl7REFCALFJAET7UB aStG9BZKK3RDa1YZTDZQO RNPQ0DDTaMSkRyS9KLBO8 ZHa1MDJQGNERGRT6NRrAc ZTGQP9BDBeVVG7ewIFWBL OFMTVTwDtTMYB1sFRUHSA 0ZYXCRBPVAY78WACCEMIA KS4UZYT1MGWXkoDGDSLA4 IV6gKNe1FXjpGLFwD1QvG 9CavpNdfWKyKFIzepCwg3 qeKMJ4BZPpkLUumKQuHrX nAprfXRI2WZHnNRkwRM4Z CVNxMYK7DFykhP30iTCyQ C4DUBIaEJrcQNDeGBKidn Y1ZOYonPOgKKT6PP4nfAf wnMDqtcpcugH1IM6CaK== Immediate Assessment Adequate cellularity (test code = 9837) Major Classification MALIGNANT A (test code = 9839) Diagnosis (test code = n5rdsVScNZYfvHR0BrPmZ 34) APlo5ubd5UosJTxzEXqBL ctvGDpdfXnpn82eKH2zI6 6UX8qBKIkYxC1HHPsprL2 Idv1IBFlDYRwbPKvO265m 4nnz8rutzLgeTX4VAUaJT MdT8EgJR1wJHMclGQvF72 evAMvCEY1XHPqNCIvyZIe BHWtIBM2YQZgkQSuJ8qwP PWwWD8xzutfBJetYAcyRE IcnMH5GWAugMUoG3YhCJN aSRoiIBPnzek8TdHfTr2s zPEqfHalORqhJ0ifuX2wC sZ5KLicU5npkJ6yBWc9LL umUQObwFB0zkW0HFIwtKE tZ2IchD3nVWGlNQ3ngjr6 n2imSVM6MZunXQRdHfM0a mF7QPYtbRShEJahdUZpvn xmczIwXGNmMSBBLiBMeW1 qiJVsr3DhASInnPqotRVr eGlsbGEsIGZpbmUgbmVlZ AwiFHWsdUiyWXZmb251KS DqpnshATYjpMQdGQ2EMCX IRTGNZJGfJ6JWT4gDL42P ZRYIKvEYM7UDNaBiN5nPJ LYXVtFKH9XbGNDTAONDAU BccGFyXHRhYlxwYXJ9 Comment (test code = z7luyCThQJVzyRB8VmOmI 9835) CGxr0ysq9RpeVAedHJnIB nmoSJhlfGyrw56qEG8sF8 5DL9nEVEpBeT9HVFjcfC9 Ydj4BUObXABcfMNxT216v 5pfb0cwtnVdnQG8fUciIJ WupowbWnP9ACpbXURqyxx qJYd1NKfpHXUpmRU9VZEj zXKfJ0FdOAFqUN0vjfg7K EF8UPghSUJwXtU4DNHthP WjMIVvcMbfGDlyy103XWA 6BgDtASLbdiLgtMhuuF6x AiXbWFYIwGYeW5RvxDNnh O3oziNyedFlYKFwuIbyoq E0HPOmR73ekDZjUaM7k1A 1HRAcn5LuFCFlsMuuPEKd x3PsHACoROtqv1Vrda0aH HBhclxwYXJkXHBhcn0= Retained/Biomarker w8ksuRLnBSKvwQV9AxOrH Testing (test code = FJri0jkc7CujFYweZKvTY 1814) cbbPLsfcBmea16bIZ3vT7 5JA5wNFBzJfG9HNFmxvI4 Jer6DWJeZFYhcWXaN865s 0gka2gwnyWkdVE4pVesZN IisfeoIoJ2BLnbFUQcnek vJMp1QPbvJWExqLW1OHAe kZVcH6KbPECwCM7esnv2Q WN1MDylPKUgGxU1TJNlqG PoZHKtsZyuGGklm852LQB 9BgRvFGYkcuTscFamhO1l ZnMyMCBTUjoxMFMsIDFDQ bejBMXfTHLAWCROCf7xUA XwySSqPQ6WOGEDXZH7X4A zxXJwPX2QURIXEVJIMjVG XGxpbmUgTURMIERROjNTX HBhcn0= Informational Points e4vtnHKvNNNhrMGzIxSyQ (test code = 9836) ABgJXPqh0kkUJMneBXhHd EwMzNcZnRuYmpcdWMxXGR tEbQaj3vho403aWAsh5ty AMHqYqX3vFKiZJGskSGjZ 839ZLAlSVzlh9njy0AaGS OubHGzf5H5DNLEVNtsDGE ZOUb3q3zyPsBjLbW5fRTd ZZhbC2lsifDawZOgQVElJ Zw4aF48OORdtT5okGIxPF gywnJqNhY8OPbsVDQvMjK 8NAEcvOZaOSOrU7xsZVSi OWlkGCDsPEjjbHKmENH1u Exhy1O9eWYdaZCzwAxhWv BqIkKjBeDKl6PcXWy8gJh jB4ZlCXFeMoX6vGXqCZTx AAowGNCoHVJphwG4yJ39V VvsvpF5mXPda7Ydt97gi0 22vY1ylTDoQTV2QYRfSKO ugZFdQPXjHWF2SBLqxBWg B2yzGSSpPA1ygptiFBqbZ JcaSBLzyZD4YDXsdJUtP4 MeZKUuZRrgNNEcjbq3OvS lWp4hpEDgoKzbJMrrj2zt m4twzOMbCki8DQZcFfYnV hkzNEfse6Jqu6hyOHImnz 5hKVK8kONsrPdkw5W1bMA cFETxsGSmslUaXTNnrw67 xMUinHIgxWFwcw0uyiQne YUyoHFnCRI6zINbpkMeFQ QzdZPhVOLiYRKsX3spTeU ojuNuF0agC4DvDHBfRPQt XMHwXmGoeaEhk7Tzo0Yoa GPhiYg6m6yjNKHiJWVjbA gho7lgMDP5TNBrM2X1oCQ uo0drHWfnMCNqpBK9giN7 YSFvxHNbC2XkxK7qNBGjR N6qqvc2u9tcKYO6UFxsDD EoJsQ0lhW3VZBjoDLyYIS weZjcUJldr122ALR0WwVl SWWei2JcM6XaqTjkG99mj ZhtT74jAWBpcAdlmW7ytF njxY6fIxTiVtHwEIgnvYz qlHEmunyoBYxlrgE0XQcy sahvHNUoRMuoW6tuKxPcF XAobWflJPtpq0VoBSYnHS AmKKooaMSRj96qGUSol8T iLLDskT8zcBDePImytdBc yGJ9CBgppjSmPjSuesOkW KNpkD8lSKPlRZ6nIUZkfk Nhxd1vbaUrXHRuDSVrD6Z kwxbsoBtjjgKsAAOuac4n jlGsHJP5BRBYMJ3PAIQbM TTay56eCGYchEfskN8ilP EamsHzGYUip3UufW8olNS RLCWvO2sbZO6uINazm2Xl xZQsgOSzjBD7KDRwe0TkY wPvsgFipVSrmOQxS3TsmY diJ5qoZMHfRKQppdLbpYL qd2PvHBFgoVE6lSRzSF6O BaOMr62mMQFoNPBYtfEzV ECfvDwsmYQ3scA1nF3cEu NGkEtqQYWbn6Ljm0VwOTQ sgeHsorShOSW5YBmnmYQa cwrtKUckjoZ0UHenkzxzV NRdYUpdA9zyCjLoVIEtaK upBKjym9AsGXVjBZGjDes lrdM0IQw9vcSrJLcoJ0Uz jIISu6AwnX4tRLBaDIejn 0A9iXTsKS3dP6ioBwVCrX BykZL2dB6jz2f2WDoxHk4 wXUThirhvjGkzaX6rLjQc HeLdSAwbBV4tONIsP1azv REwNOCpTZXjF4pjLpQbgW 9jaFxmMVxjZjJcZnMxOFx pICwgXHBsYWluXGYxXGZz MThcbGFuZzEwMzNcaGlja FxmMVxkYmNoXGYxXGxvY2 spFfYkP0UmJORcDArbxQH pS5dpwBIeGIKmQHAKLKM0 FQGlWLF5LLelSUslrQL7t 23lXONUSMq5WJb4PVCxKN luXGYxXGZzMThcbGFuZzE wMzNcaGljaFxmMVxkYmNo PXBlNUfgW2kvCzIgD1HoL GZzMThcaSAuXHBsYWluXG YyXGZzMjJcbGFuZzEwMzN caGljaFxmMlxkYmNoXGYy OJeeQ4pbKbSiOyEpSdfoT XJ9 Lab Interpretation (test Abnormal code = 73625-6) [facility] Breast Complete - Bilateral 2021-10-26 18:55:03 Test Item Value Reference Range Interpretation Comments Radiology Study observation (narrative) (test code = 96707-2) IMP (test code = IMP) Biopsy should [...] indicates site ofbiopsy-proven malignancy from outside facility ([facility] over read pending).The mass extends to the [...] Abnormality Lab Interpretation Abnormal (test code = 73915-6) [facility] Chest for Breast Ultrasound (Add-on Only)2021-10-26 18:55:03 Test Item Value Reference Range Interpretation Comments Radiology Study observation (narrative) (test code = 32779-9) IMP (test code = IMP) Biopsy should [...] ofbiopsy-proven malignancy from outside facility ([facility] over read pending).The mass extends to the [...] Abnormality Lab Interpretation Abnormal (test code = 73429-4) [facility] Head Neck Soft [id number] 18:55:03 Test Item Value Reference Range Interpretation Comments Radiology Study observation (narrative) (test code = 65606-2) IMP (test code = IMP) Biopsy should [...] ofbiopsy-proven malignancy from outside facility ([facility] over read pending).The mass extends to the [...] Abnormality Lab Interpretation Abnormal (test code = 30365-8) [facility] Digital Diagnostic Bilateral with Oczk6446-18-81 18:50:10 Test Item Value Reference Interpretation Comments Range Radiology Study observation (narrative) (test code = 28599-2) IMP (test code = Finding in the [...] Evaluation Lab Interpretation Abnormal (test code = 28749-8) [facility] 2021-10-26 14:09:59 Test Item Value Reference Range Interpretation Comments Materials Received (test x0egsSFuBJXleDYmVuSk code = 9973) LEAbZUAnk5sdAJJrdBEp ZzEwMzNcZnRuYmpcdWMx KXAuNxOby4btg001lSVe m0hgCRTwWzS0ePQsNEKt kUOcM325NNMyLDsba8eg r4ZgCKDubNSaa3P4CZSP wbxhwDt4lXwfW01xn6V8 FbvpO7tiHVVqYJLdU7Vr NO6gOJDxZhw8DLD9YEI4 MSDnZZUvM4XiXB9vMKGi eTBhIFy7y5hzxPakDNMi TYP9a8jbDRcqucQvAN0k ob0erNr4w4naifIaHVZk XKEkrJVFITQhN7KjaWlm Fk6rvBk2yLxjJtudWXD2 Wkr7ZE7kuc87rte6bScz CLDotmaqMcN8WFwzNBTk catdCJg0CBldXYHcbPpp MFxtYXJncjcyMFxtYXJn gRY5CGCguMOnY4JdWXWg THmmLOJkjio2FrTwVp1y pESddTmzRAigd4gqd7rp lVIhCpm0BSZgGwSqMzto IDyfj4Qbq9llYOTrkf7q HIS8xEOchWtjm4K6cYRx KTSaiDHftqRsEVIzuv73 yRFjmJGofPMwoq4xzgRt tVNtdAZkNAJ7bQNwuePf ERSybUWqAIAzOM1wrIEl QGCekJ5fvjzhCYZsQwOn fdybIVSqyEotpcSkJm7z pXigJSU9NEksO3eyiU2g KhN5VWfrH7qqcD1lLNo3 PZbpbIO2XHWpeV5gLA4h iwksq9miDmUkVI7cgeje a3yaUmFeNA4kkjm1h7ij MDF9RMgvRRGkZaB9mjP2 NDBcaGVhZGVyeTcyMFxm j888KRH6RhInVLVlv2Ic U6NiyPapL49feFnoA27j JOHdmGgzrJ5ebWuiqW0p NrEvHwAuFUs8fs68TJp9 sfyvvElqOMx0cxFrLOPn JIS9ZFDtxCDjWLKoZ8n3 khMeHBPnFIT5TVDemGSh CJPkL8z8yqDtKHR0SEu4 cnBhZGRmdDNcdHJwYWRk YjBcdHJwYWRkZmIzXHRy jSLobNPupTHfhE6spFph WMCiuDVsjV1oXNT6RJTm cmgzMjBcdHJoZHJcbHRy ak53DZFajbVwvOTalTyu xQAaZFL2KSGqJZAlRGDs VQH4TGLfMkKaoeRcIKnt bGJyZHJiXGJyZHJzXGJy VRN0YBZuEbVfxiSjOJph bGJyZHJsXGJyZHJzXGJy RAZ3XSQiGmJkqzRfWDvd bGJyZHJyXGJyZHJzXGJy UPA5THVhVxXjjlIiACah bHBhZHQxMFxjbHBhZGZ0 G7gooTAzZNGeSTiyeYYu PBZtR6aflRMpKXyrQAKg cGFkZmwzXGNscGFkYjBc E4wdQELpRwIpQ1HbzRb3 MDAwXGNsdmVydGFsdFxj yNMkTFR6TZSqUCCvAWBf ZTT8ROCzVgVedbPpTUvc bGJyZHJiXGJyZHJzXGJy WIA6QDCjIoMghxSrQNrm bGJyZHJsXGJyZHJzXGJy DTM9LQCeNoEefyFpDWqs bGJyZHJyXGJyZHJzXGJy QXX2UFWxVpEqddRrULsf bHBhZHQxMFxjbHBhZGZ0 H8mkkLYxSKKmQFyfaDWg XPBdH9jdeMDyYVddSSHb cGFkZmwzXGNscGFkYjBc L5eqHMNgQmDsM4MptOo3 NjAwXGNsdmVydGFsdFxj jWZqEVF2MIDiKUHlXUQg CGL5RIQnAlGbssMhJPpb bGJyZHJiXGJyZHJzXGJy KPI1SIDdCjOmlqOgYLym bGJyZHJsXGJyZHJzXGJy FFN4ZJYyCjVvcwPoCOsl bGJyZHJyXGJyZHJzXGJy XVA5TYMfPiCvqqSjDJms bHBhZHQxMFxjbHBhZGZ0 T5bihMBhACZaUNsdoAKg TNLlI6pawQYfCTscJYTg cGFkZmwzXGNscGFkYjBc O7ecRBVnNfByK7ScpLk6 NpVqVHPiljQreP02Dddq i8WuVNAeCYC9RCjoZLmv bFxwbGFpblxmMVxmczIw DQkdqjveNUUnOAauO7se GiHcTACzhSzfERshq6Zi XGYxXGNmMlxmczIwXGIg FKAyEFTvrX8zNhmgW8Gl dL4fMHslRmpbA1qpVOVw x4EtoD4pASbodMQxbkzj MVxmczIwXGxhbmcxMDMz POfeW8tbNbEuVFOtwRmw PEqsi3ZyUUOtWJItTkfx izVaLAp7itUaUMItnGuh gCPpSYlnysTfbJhtn0Vv znEvdPraJFPsPRj9smNr hficaKr7xONmnTenMRXp pQibtT0eHrCuPkWqGYsj bGFpblxmMVxmczIwXGxh zqogBEPkBEwkB0wwEaVe FHGquQvwZGlie7GeGNPm USXzKdwxltRzQTByG59t bGVjdGVkXHBsYWluXGYx XGZzMjBcbGFuZzEwMzNc aGljaFxmMVxkYmNoXGYx ZYagY3jxHvUyZ3YhUJWt KzPejDKzN2fuF7JzwCnv YXJkXGludGJsXHNzcGFy RZU1tGObvtJczVBsbZBq NHVoHBpxZWW7yHIhvebq lSRajmluEVzzvgM4KJGu YWluXGYxXGZzMjBcbGFu ZzEwMzNcaGljaFxmMVxk HmQfHBBtBOmiK2zvDdNa U3XwJPOdJdKkUtVJJMWd aXZlZFxwbGFpblxmMVxm czIwXGxhbmcxMDMzXGhp F7cqOsNoDKWplSmaXHdt g0ZfPIDtFHNaNdkdjdXj AGi2buDmDTStlVimoQ45 Tsjfyi91DOQmf2moBXYt R3KvcSYcTLIjlAZcXDkh MDhcdHJwYWRkZmwzXHRy cGFkZHIxMDhcdHJwYWRk ZnIzXHRycGFkZHQwXHRy gVWhFIR4P3l4rkEyHEAa LJm0rgYxXLFuChFhnGQf HBF5WIf5BuchscG1iUEk J1m3TjcaxrYcGVkvhJNz ma69JCZunoIzwVPubLyy eFLnATG8DWNfTDKxRQXj ORS2XWNxKuNpohUvDPhe bGJyZHJiXGJyZHJzXGJy GTG9IRVuElYdiiBjADwx bGJyZHJsXGJyZHJzXGJy YJY4NBKcCjWmixNzFJml bGJyZHJyXGJyZHJzXGJy WCY3IJPcEtVemqVzCVor bHBhZHQxMFxjbHBhZGZ0 O6yswSRkOKMqQBmzcUCc XMPdQ4vygWMwXVjkQKEy cGFkZmwzXGNscGFkYjBc C1ywTJKrIeUxP1AwiCx5 MDAwXGNsdmVydGFsdFxj uKOeEVX6GFUqZPXnJZYu LXA9NGBlNsTninLqZTcd bGJyZHJiXGJyZHJzXGJy QGO4QHJsYwDrqiLcTGym bGJyZHJsXGJyZHJzXGJy QGH7LWApQtAciyZnLZfb bGJyZHJyXGJyZHJzXGJy IST4RRGzNzBpuwOkOJau bHBhZHQxMFxjbHBhZGZ0 E6snuFTwELHsIDtxfWWr CTIxV3sdnEVvYJixFDPn cGFkZmwzXGNscGFkYjBc K5nnHGRuCsXmC6XntPd3 NjAwXGNsdmVydGFsdFxj jYMiSJD9HRNkJHPeYHRa PWG2CKKbRmYibxXgKDgh bGJyZHJiXGJyZHJzXGJy NMN2KTGuIiJkcgBuMHlh bGJyZHJsXGJyZHJzXGJy KTN2AUCfUxBqdsXaEYij bGJyZHJyXGJyZHJzXGJy VBL7LBTxOvZgsaXqNEoy bHBhZHQxMFxjbHBhZGZ0 P3abuPHmKMFdSPxkxAPc PKFgW8hczRMtKLqvNGJe cGFkZmwzXGNscGFkYjBc H5giOXOnCnWgM7VnoJi2 HmVkBWUbmvValE00Turh m9TyFLAoRFN9KUqtEIra bFxwbGFpblxmMFxmczI0 XHBsYWluXGYxXGZzMjBc bGFuZzEwMzNcaGljaFxm QUigWuPwFDKdKIarZ8qf LlXpI3CuRUUwSxLzBZ6q WmKbLFL6WDG7EIR4GPVS QFKsOPFBT3CAAydnYUIX O4XbuVjsaQ2gIsYjYkHc CLjdLF1eUHDtK9xhsUOv ZZOhOXQyZ6ayNgRpeA6b aFxmMVxjZjJcZnMyMFxs dHJjaFxjZWxsXHBhcmRc vT18Kvcjg3YvSPIoNVC9 MFxzMFxxbFxwbGFpblxm WWxjimL4WVDjJUiqZVMd XGZzMjBcbGFuZzEwMzNc aGljaFxmMVxkYmNoXGYx CEceL0rtFvJuT4RyEDDe DyVxAA6kLj7rNTZbZORr YWluXGYxXGZzMjBcbGFu ZzEwMzNcaGljaFxmMVxk KdDrLOGjZDuqB5cbAmJx B6RnDVCwFgFasTWoV2mq I9SzkCpyTGNmOCyljLDt LSLmnWNyVPC5bPUnzlQc nSlglXgihE6mSqOiSgVl NFxwbGFpblxmMVxmczIw ILwemjhwLDNqVDjuN1tb QrEaEYZrlXnxBVojz3Ho XGYxXGNmMlxmczIwIDUv XJ2lXTTtKKYdZEpzNRBk XGZzMjBcbGFuZzEwMzNc aGljaFxmMVxkYmNoXGYx VGvgM8rlIjVeM3JtGZCm RoMimYLcS2hfW1JnuEbm jlAjvVcne1fkpIXdDUif f7FmlfZhtUeuRAFxVAZy XHBsYWluXGYwXGZzMjRc tXiotF8yOhItGxDzYGnf BL5nNLJfQ0eusSVoNHHi ILSzW5fjVqJmlM0jnTky MVxmczIwXHBhcn0= Diagnosis (test code = z0tmeDGkSDRgoQM4FjMa 34) KFUcw3bxg5YdkPIztFSu XGleiGVjzoIqwf26qXK3 nK20YJ8dFXNgAuX4SQPb xhJ3Btj2AEEjKERdwCAx J258d7oeh2sdycXdaLM5 VHLiWJBmW1ZuFE9lWRFi fHQwT62zcZGuUOP8RPEh SCYdwYHvYCKeKJF4IMEo rDBvJ4alDEKdWM8zlxst RJydFStxPDPflSZ4RFVo jQXmK2JyVSXhFVbkAFSd wcc5VpJgFy3bfMCmfLba MFxwYXJkXHBsYWluXGZz NmXpC0SeAM69cVSzWNRc RVScLq7oXdA2SYtlRKEC RcinSBHDAQ3ZN6ZnAACa YCUQURFdv3bxZGF8YMGo b58jOL2tJv4vCCNzKTob cGFyXGNmMFxwYXJcbGk3 MjBcbGluNzIwIEEuIFJp S8a6OCDdPUDhvLD0hHVw pgWjkc1sliTafI9cp4lk FTWcNWF6SUehiBixBKeX IGZvciBFUiwgUFIsIEhl mhKbFFUuGCOndR43WkSy glMEQHx1BDFwehukBTXv rJxwAYMrULjdciI2XZDn IR9UKUCOKxYpRIMDQQKV WYOQTgNJUk8ISXquRa7n L5ZZJ7tAJYXSYLGNNupk CRAayKUbCH8STEKYFrtK MT6bB8RLJZUdIxLqKpDi TIUhTqUyEM7eyWSjVNRk vgQEvNFixDY0QYLkLGgY OlxwYXJcdGFiIEVSIFBP P9hEANPMZDdyYZOjJCFm EsoriUMiNCznDgC0WDyy jV6nLHOrFMPLPU2PY5IG GGPFNNc7HLLjJOEulvWG XNExXtKZHM7XZ3YFUTEC WQmtE57uVUFgEcqafVVr HDnsHHU2YM3KRKZGKZKU TFkgRUxFVkFURUQgKDI1 KDmirXUaZYorWUU7XWcq fW2iKKVwHLDdjjnzgNQw NjBcZmktNzIwXGxpbjIx NjBccGFyXHBhcmRccGFy fQ== Biomarker Block(s) (test z1apqDPnAFEmpRY1YtFa code = 9841) JQGpw5xef5BasHKnlIOl BUmjcKAremUygl96pXU7 pY14FQ0vRCVgDzC2FNJt emM3Vqu9LEVbJLAizSPx F476e1vjp3qfbdGubDK1 oCfzAKOniniiNpT6ANph UQBfoviiUMa6QBinSXAa bYZ6JUCwrJVqO4DjDHBs WA9yobz8EXA1AGbrEYEw GmR3CWKdjBPbKCLoyLkq DJhmr915LUA0CsUyNIFq tjGjlIjplF4nAhAlLMSY MSwgQTRccGFyfQ== Disclaimer (test code = c9cezMCdWJHmpJHpInJt 9844) KAWmOBQae0gsROXazKBz ZzEwMzNcZnRuYmpcdWMx OQKqPmFis9kyg996bYDe d0umTKJbNyL4yQSeKAYn nMZoJ225WJXcBUsmy3ux t0DgGZDekFXot1B9HERY dtperQx6qVtoI21xi1I2 YhdqM8niQAVnRKXoI1Jj BU8oCIUaKqj9YCH1VZQ2 TFBrNLJcY3YzIG6nANAa lXXqVPv9x1bldLnrTPTa UWQ2b9pnXBonroWyKV8q kr2fwTa2h5fvjcTsOPDr RLUjlMBXAIHgC1EmvGmx Oo2fpEf3gSolLobfVZW5 Gmc2BY1uma61hqi6zVzs KUKbjkxpOuI4IAcgWGSn abbwZPp4BZqgXUEgpVL7 WSNokVJiF1BrAMHiPB3b yix2OCS5JXckLRMiZfN6 NDBcaGVhZGVyeTcyMFxm v005BIR0CwNxVP1kT0Yo s5N2vU8trYDyVRFiwWMm WbLmFJIjuc1rdNZlMSho c6BcEPA4pjA4xSViqEGl PGGiDF97Zdnsf8YuNsam KFJ5RRNabmGcv5Xym6bt NzDbkiCoJ3bqO1KgMVAk WXSiYCMyUvHndgAkm6Gd s4WotZYswIe7h5kgRCOy AGLgbWlzo1mzEFV0AWOt Z1E9gMHvo1rpINeiDTLr sWK4brE9RQKsvQAbQ3Ur zE5vOZYcLL9ogkt9f5ct PHD6NLkwENMyGyE2xaD5 NDBcaGVhZGVyeTcyMFxm t617FGL9PmQvKENvx8Xc L8VpuHsdU36rqRmxH49q WBVmcVlhyZ5kpEcdxN1z ZjBcZnMyNFxxbFxwbGFp iqakVPtuarI4TDbbljuf GHLhSMriG9xtBrYaRLIg pYpnNQdrh2IcVXCxVAWh QduebnR9ZQFSy21dUAHw d9DwZSHfeZ5zoELdDNsp bcPeuIW6GGnygbHmPhGs wiUjQFUtvG1oHOZnXD3k KTDlhnCexx8ibcTvMHRw KHUaF1TumjzdiJvusuOz WGItpr8gsvBaMYU7UTVR PZ0EBAPsCLTrz69xKGUc fDlwxJ8chKWzdzIdUYHd g9XgyT0iaFPYDSQlV5zg JE8mFYgty8XseSOciNZi rCA7SKRgo2ZzBpBgqbUt oSYhcUJoW6HmeOzcJ5by JEAuZNDctwGbuFQir8Mw VSRbhWY6tGQvLT1XCvCU a86tMRAdJIFEbjSiPZOc eAshaNO8bqZ3sE7lElUA ZiBhcHBsaWNhYmxlLCBj d005wa7obeB5ZYVaEGBn ihnkx6EuOQSxNRCtrG93 DXGbDWIjpj1qvfafyFOc tzZiT9Zqtyp7fJ7uPDIb YWluXGYxXGZzMjJcbGFu ZzEwMzNcaGljaFxmMVxk MvIfINSrGHvaX2qnYoTv ZnMyMlxwYXJ9 [facility]ation 2021-10-26 14:09:59 Test Item Value Reference Range Interpretation Comments Materials Received (test s1htwYZeEXPqiRVpUqFm code = 9973) WSEtKLLcb1ugREWxvQBd ZzEwMzNcZnRuYmpcdWMx GVRgWfQjt7byy004bWTc p7jnAVFaObP5eXArEJZc dTFkJ615DVKnWOnqq4ny r2KrFJAiaKMdk4U2VCHI plkpdUs8yAiaW23bm5W3 DwltK3epKEBgKFRiN2Pm VG7pEGCrIyu4QBB7MLV0 ISIaXUSlS6AqZA5iQCXs oFJuGQl3i2yrdPzoKZPz MEN1c0gjGWptsgPxNH2s wk2wmHm9r2jtvcFhOHWw IRIzrIZEVANyP4EdwHwq Sa1xaVu5uBjmKxylIXQ6 Jtf7MO5gxg98eoa4bNpk WQZsjaupZlZ3IXsaDGSc lpdrDQi9QVbfHIKttEph MFxtYXJncjcyMFxtYXJn qKF8BUCwtTUrG0VkPLPv MBucWFMktqq7TqZuDs0i sFMabGttMPjdr3lfm6yf iFGkZad6PGSaJiStXgmr VXvvn1Afw1jtLSMhes1g YLQ2yAZnzNdaq5Q8jNGa QOMvgSEchwYzHAQfxl46 rAUgqFSayBPbhu1wxkCn zVWrpGDcKJQ3mXXkenSm WOKxsXKcPELnLE0cbYBx CLGbyB8jxxsrMYVbWvMb njydKEZfnTzmipAoUi6s rQieMSF0RUvnO0rymM3y NdY8KVrsT4oeuS2jEVd4 EXajzAK3WXQoyF3zCF1e flins8zyJpYbZA3lpgux o3wyPuMrKZ3qvsr8a9ca PGB4CObwRPRtTnM4huF3 NDBcaGVhZGVyeTcyMFxm s523SEW8FoEyTOJxf1Bf X1RyuKyuT48svYuyB16b VNVqbFlzbL2zuEcpqL6e JkReQqTxLKz1jy67EQj7 jnuncHguFHz3zrLmVCIr PER4IGGkpHDoCSMfP2e5 usCwPDWpBRZ0OSZkmASp PSHtT4i6sjKwIIY0FBe5 cnBhZGRmdDNcdHJwYWRk YjBcdHJwYWRkZmIzXHRy nOJngJVuhPDigQ6xkKax VPEvzYSaeW6hMXF7COSv cmgzMjBcdHJoZHJcbHRy zg60XCAxqlXihEJcdVyg yKBvFPL4YHFlRDPlZMNp DZJ3JIViNzPlemNpPTdh bGJyZHJiXGJyZHJzXGJy TTC8RWTpCmDsrtOzHZdr bGJyZHJsXGJyZHJzXGJy UAL9LTFaKeMcqmNcRCnl bGJyZHJyXGJyZHJzXGJy WMJ6XPMqArJcwzGjDSjr bHBhZHQxMFxjbHBhZGZ0 A7dzgTSnOWQbQUeboUBq IQIyY1lspKMgWSyhAZKi cGFkZmwzXGNscGFkYjBc H8yfKOReTrZqS3VneSv0 MDAwXGNsdmVydGFsdFxj rEWlJMD3VVChVZEeGNGk WGS8SAYdSmYzdxKmHGzk bGJyZHJiXGJyZHJzXGJy FXE1TYGmMgFegrFgGPik bGJyZHJsXGJyZHJzXGJy RKJ0KASjXaVrsjSnBOoe bGJyZHJyXGJyZHJzXGJy HGP7EGGqHfQwahEqJOyj bHBhZHQxMFxjbHBhZGZ0 P5luoUGpQPBoSFshlYNt NAIcB4dciCYeEEbqAZZi cGFkZmwzXGNscGFkYjBc U4vnHMAiBeFpV6MxtAj8 NjAwXGNsdmVydGFsdFxj bFZiAJH5MFIdDTNoUUFi HOC0LNCoFlNncfTfRPgk bGJyZHJiXGJyZHJzXGJy GHN7LASmRsGnauKzMMqq bGJyZHJsXGJyZHJzXGJy KSN9EZJqZxKuxwTyGGvz bGJyZHJyXGJyZHJzXGJy AUP8MVUxBwRkpuGyUVcy bHBhZHQxMFxjbHBhZGZ0 I8igoUWzTUJiBNipdDKz TXWwU2dkiSUcYMrgBXJh cGFkZmwzXGNscGFkYjBc W3hjIKJyVbIiP5WgwHk8 TdTyJVGezuYzeH07Ctnk i9ZtFBKkKRD6TOdeHNbh bFxwbGFpblxmMVxmczIw PUgwlagwIRDxDTdlX8pe CiSuJQQygVjxUUpoq3Vq XGYxXGNmMlxmczIwXGIg WIOuTFAuuM4tUlabP1Ux oH7hTPliLsmsN7fvJKLu u1DdoC8iSWebkCAnvstr MVxmczIwXGxhbmcxMDMz SJkgL8ueWsZdRNLkwYsh IGhik8CoNLCsDMGqPthr piCoBUb4rjGqKGXfuBxr tETfGIutgvNjnTkyg5Qf jjZkvDjlZBZrVDk5juAx glvwyOw0iDKkrMwiEYZa sMdlmX7kWvEkMfPpIIhk bGFpblxmMVxmczIwXGxh agyjSMNpOMwlU5usIzVb GVLsaRdoLUjav0TuGALn RGYtUxjescEmIAZeO37w bGVjdGVkXHBsYWluXGYx XGZzMjBcbGFuZzEwMzNc aGljaFxmMVxkYmNoXGYx POzaC2ncNbPfN6MrYIVo VfSzjATxF5sdU8TxzBgl YXJkXGludGJsXHNzcGFy CGS8sBRxuaFhcGRcgLNy YOEfHUhxNOT6kWVbeute aFGfyzsbYNqlqhF1PQOd YWluXGYxXGZzMjBcbGFu ZzEwMzNcaGljaFxmMVxk BfUnRCCiFYgrV9tfWcDu Z9KuKBVjYcMkGcIHURFd aXZlZFxwbGFpblxmMVxm czIwXGxhbmcxMDMzXGhp G2cyCpEyPUStoXitPCsy n9BfYAYhVQBxNvvlsdDy OZj9shCzUHCrnBvfsH15 Lpfihi80SQRmx1dmHWIx O1QljTNrZHDgsTGoNOto MDhcdHJwYWRkZmwzXHRy cGFkZHIxMDhcdHJwYWRk ZnIzXHRycGFkZHQwXHRy rKVbEWB9R7u1qfBoGZRy QDp5hqHiJDOzDvEcmTEm EET6IAk3GgnqdiA4zBAw A1d9IqnakuZqFZcugHMj oq75RKBxqbYeqRKsyPxa cTSkQDI1CLFvVLCpGOYl HSI3YVZlFiXqjaYiPGpl bGJyZHJiXGJyZHJzXGJy OTX3ZDXoLkRbwrLaOMki bGJyZHJsXGJyZHJzXGJy PAB6UGUdCoOfpoRnEToo bGJyZHJyXGJyZHJzXGJy GLM6YXPjMhMbbgSqOFih bHBhZHQxMFxjbHBhZGZ0 S1tfzNNsGJVxLVoufUGw VZYuS5ebnXMbJYaqDZLy cGFkZmwzXGNscGFkYjBc J0pjHEDnNdRfI0FokRa5 MDAwXGNsdmVydGFsdFxj lLIgWPZ3GQQvIXSyREIx WCW6XJUjWnZxptLjLJdz bGJyZHJiXGJyZHJzXGJy JFC4WDYpDkYsfxNtHFkd bGJyZHJsXGJyZHJzXGJy QLW1MPGeXaHfjmPlPKzz bGJyZHJyXGJyZHJzXGJy SHL4ZAZwFfWbwdKwFUlf bHBhZHQxMFxjbHBhZGZ0 H3yuiJMbDARhOYauqVWs KKUfN9ldgJFeOSiwJQPh cGFkZmwzXGNscGFkYjBc Y2oqKHOpXiEiK7VrlFd2 NjAwXGNsdmVydGFsdFxj eVFuGAV5NJJaSVQbXGIx OFH5EJStRnAdbyXfHEot bGJyZHJiXGJyZHJzXGJy GPQ6ZQMpVhWgrnLmFIqf bGJyZHJsXGJyZHJzXGJy CME6HLDwHxCiwfIoPHxl bGJyZHJyXGJyZHJzXGJy EWR1OMUxHkWehhMnPCtz bHBhZHQxMFxjbHBhZGZ0 Y4dutQEpEMQzWJwniLJj XPInC7amsISaXMrePNXf cGFkZmwzXGNscGFkYjBc L2tpVUHyMoLfF1TenMz9 RmMaPSJgljBtcB78Kaqx y7VgUCDqDCV0PSilRSjx bFxwbGFpblxmMFxmczI0 XHBsYWluXGYxXGZzMjBc bGFuZzEwMzNcaGljaFxm HKqfYhEtMQUxTFzxD9uj MvFyS6QjPGBjGpDwRC2y BjKsGTE2DBA6EFS5SAUL DVHwYEGHN6JXQrfeJYOM I3SkvSzyyY2kXhGvSvXw PUxvMX2vKJVkY8iwpZSd JGGgNIXoN7gpSbDdjH7s aFxmMVxjZjJcZnMyMFxs dHJjaFxjZWxsXHBhcmRc mU62Uvgcw4UnUOEwTHI9 MFxzMFxxbFxwbGFpblxm CSdbtvF1VDMbHIchNKLg XGZzMjBcbGFuZzEwMzNc aGljaFxmMVxkYmNoXGYx QOrlA9wnGrDdI1JgABRz KpEkGW9rRx7xMLPwASWs YWluXGYxXGZzMjBcbGFu ZzEwMzNcaGljaFxmMVxk BdWsQXHhMCnvQ0dcIxXc B0UjOOAyDbIttWRgL3sw C3EsxHjbJLSwUPnueXEb PDEttIYqMZH6yQRevhVx wHpngRwbfB6pHzZdEdVw NFxwbGFpblxmMVxmczIw PAgbxadvRZAqYNafS4id TsAaWHNdyZurPMntq9Sw XGYxXGNmMlxmczIwIDUv AL0aTWMvWKUzYNmhEWIt XGZzMjBcbGFuZzEwMzNc aGljaFxmMVxkYmNoXGYx WUijG0uiCtRfO5QaPEIt CrJdiDQrX1hqT5StbHoa bzRnzVctq6ilrMIdIKza d9NdrpYozYgwVBIqHQMz XHBsYWluXGYwXGZzMjRc xNknnR2aFyAoShRkYCxk LL5cGGCsP6msyZPfBAVj LAYjU3chFnPfhU7iwQse MVxmczIwXHBhcn0= Diagnosis (test code = l2hduVYjZNUcjMI4AvHc 34) NTCca0xyu5PhsULahPSu UJazeXDvrfOomi96vVX8 fI58XM0pFAJqLkX8LRYw fpY1Fqs3NEBoCFMxfHGm W687f8orc0jngiWobBT6 RMReXUVmC4DdTG4gBBOl oAVuM17xkBVqSJS3ASGe RGLudMCnWEYpYKF3SFMr lEKaJ6rzKLLqXA5jibei SLgsLFenTWVxyIP3VVXk iNPiK9NpMTKfVPjvSKHe gat0EoPcOl0bnMMmpWki MFxwYXJkXHBsYWluXGZz QgPuN4KmDF58qYVeIDHs YWEiTn0pUbG0YWpsJXRI RfohWDUTBT4MH0DgVUKq SQJCNUDwd7efCFA3JTZo s17gAJ1bFf7cXIDfAXog cGFyXGNmMFxwYXJcbGk3 MjBcbGluNzIwIEEuIFJp D0q6AWQrXSGreXY6aTPw mfWauo2iqvXjgD5gn1xf IIEdJSN6GHmfhXpkIQnM IGZvciBFUiwgUFIsIEhl vgMaBPRcEGFznI24RmIt pvOAQHr8NZEmvdjqEFAc pLkxMVVmOVngybE1QUYw XJ8UNJLSQeUvVDMUSLPX SBLYXtRBJa8EFTxoAh5x I7VYN4cGFZWUXSNLDcal UEMnjKUhGZ2EJLVXBnzT KM2gL3TOKEOiOqCpKlWm GYGsXcYgZJ3vmXWzGSSt mlLCnLMgvEZ8TRPkVFpC OlxwYXJcdGFiIEVSIFBP H8yUBRDAHJjjRAPoLSIx ClygbDKtROpyKjW8AEdw cR9cCATrABMIJF0HJ4OX WXDACWu7WHYwPXOzoyMM MDZvMePFRF6UN3SUSZOZ XCayS06ePSHlZudgmCLs ZUuySVS6ZD5WGHHLPLAP TFkgRUxFVkFURUQgKDI1 LXcbdQOfJJkfUBO4PJed zW4qYYFwBJXdhnevvAZo NjBcZmktNzIwXGxpbjIx NjBccGFyXHBhcmRccGFy fQ== Biomarker Block(s) (test x3ailHIcMASjqSG5NjCs code = 9841) SKJtj7lug5YosLWqjMLz ABacoOQeagRxqv80nBU0 xA35FI6oYHNcPfH6AJXa yqK7Nvw2SVFnKGYppWZb B577e6vuy7zjnzYxeWW8 wWtlRLNcuejeNaH8ZAzo CEHwpckcNFq5EKeiDVUq tZB1MELkbRFsG5VrZUSe ZQ5sdhf7QET1JAspTMCg KkD1HUKzfURbCMAciPkf WFqdt094ZSS5PhGgRKHc tqXgtFwhjG8yQsRnONWH MSwgQTRccGFyfQ== Disclaimer (test code = [id number]) LOShGQVin9brTLMnqQBi ZzEwMzNcZnRuYmpcdWMx UPAeSnHbw3ley546mZOs f2tpFMQwZnT5wNQyMHJa hCXjE123BMJjXQmaw7mf m8RtMNWalERtg9P8PACV fomlyQe5wZeiW34bn5V7 InhcY1weSHOnNZGpG5Au EZ5aCFXxAyj7CUW9QWB2 YCLxUPIuV4RwSU2aKZLn dTZqXJf2r2xcwQsrWRYc ASZ4g2jxBJdzzoJcDY8x gt3xnQp2w3phcfKzQYJy LZQclXALAPFcE1WnpGeu Zc2dyKf7cMlgHawyKAL0 Gfn1WC2hic37gva1nBrn UKMejabuCeI5JKrrNKLu hupxOSy0NDkkVDHrlAC7 ZOYntFMcH8YeVVRbUK4l mqj3COO7ZXzhZUBsBlJ5 NDBcaGVhZGVyeTcyMFxm o465NGX4XfZgJP1tO4Kx g3F5eE1hmJFsURKshOMj IaNePFNaoa8wrTBgTOle t6VbLOL4sfD3lMRnmSUs HLVhAW11Emhft3TdVgud WEY4OZYipvYhq7Lbj5dn DmTzfcWaD6fsU8XgXINi MFXrWBLdUkFjwuTdg0Ad z5SicCQhsJl7p1glROVv YRQtkYrei6lvIIE1LHWd O2Z8zRVvy1ghBFwwERCz cGA8fjP9TXKdeEAfQ9Fw eB9yPENcIB8fuqi0f6eq JIB7XAtkYTOtMcA8ibT8 NDBcaGVhZGVyeTcyMFxm b609EOT0TuSdEYPaw6Yv B2ObbByuB86msWqcO15g VAQgaVmjrO0fiUzobL5v ZjBcZnMyNFxxbFxwbGFp sjfvDElnhrW9QQvszjlh EVYmOMcnG7vlOrOtTGDi xDxhTUltz0HbYOWxOGOc TntxnhO5WLUBg84bKMVx v4CpIATddQ1vnHKgFPqy yqUduCK6XFnuqdViOtFd ocIaVZWntC0yTETeBW4x NVLsvpPxch8fxzFmPRLt JUPlP3VohifagNqdzwXe ORYbns1fvqScYTL3TKGX SJ8ILBKpCHIbv75oLYOv nCmlrH1gsGGonyEiADXm z6AjjF4tlWQUDQKuR3gw OV1cZBeoa8PtjIHmtCZy rKJ0DNElh7VqFxWbrsLl fBKraRYeE3WjrGctA6wa QRClTAMxhtEgkQAic3Rd CHJsvSU6wWKqVG9DIeYT a06vIUSzJEANmaKaVBLs bTjojLP8lmR0hW5nHaLX ZiBhcHBsaWNhYmxlLCBj g692jm9vdxT9BVWcJHNc ebuns7KsBEAtYHUjcS54 WSKhKQXfvm2wbwbmeUBt jsTdG9Snntw5eT0oBAHk YWluXGYxXGZzMjJcbGFu ZzEwMzNcaGljaFxmMVxk AiTdVGImXMpoC7cgBsLd ZnMyMlxwYXJ9 [facility] [place] Panel 2019-03-18 21:08:21 Test Item Value [...] A/G 1.4 ratio N Ratio) Comprehensive Metabolic [id number] 21:08:21 Test Item Value Reference Range Interpretation [...] the National Kidney Foundation, http://nkdep.ni h.gov Lipid [id number] 21:08:21 Test Item Value Reference Range Interpretation Comments Cholesterol Total 172 mg/dL 0-200 RISK OF HE ART (test code = DISEASEPublishe d by Cholesterol Total) [place] [employer] Kerry lyte Optimal Borderl ine [...] LDL/HDL Ratio=L DL Calc/HDL Chol Comprehensive Metabolic [id number] 21:08:21 Test Item Value Reference Range Interpretation [...] the National Kidney Foundation, http://nkdep.ni h.gov Automated [id number] 21:05:07 Test Item Value Reference Range Interpretation Comments Neutro Auto (test code = Neutro 55.7 % 36.0-70.0 Auto) Lymph Auto (test code = Lymph Auto) 33.7 % 12.0-44.0 [place]ory Auto (test code = H[place]ory Auto) 7.2 % 0.0-11.0 Eos, Auto (test code = Eos, Auto) 2.6 % 0.0-7.0 Basophil Auto (test code = Basophil 0.6 % 0.0-2.0 Auto) Neutro Absolute (test code = Neutro 2.8 x10 1.6-7.4 Absolute) Lymph Absolute (test code = Lymph 1.69 x10 .50-4.60 Absolute) [place] Absolute (test code = [place] .36 x10 .00-1.20 Absolute) Eos Absolute (test code = Eos 0.13 x10 0.00-0.74 Absolute) Baso Absolute (test code = Baso 0.03 x10 0.00-0.21 Absolute) IG [id number] 21:05:07 Test Item Value Reference Range Interpretation Comments IG (test code = IG) 0.2 % 0.0-5.0 IG Abs (test code = IG Abs) 0 x10 N Complete Blood Count with [id number] 21:05:06 Test Item Value Reference Range Interpretation [...]
--- NOTE | 2022-12-14 20:34 | RAD REPORT ---
EXAM DESCRIPTION: RAD - Chest Single View - 12/14/2022 8:26 pm CLINICAL HISTORY: CHEST PAIN Chest pain. COMPARISON: Chest Single View dated 12/11/2021hest Pa And Lat (2 Views) dated 09/12/2022; Chest Singl e View dated 01/08/2022; Chest Pa And Lat (2 Views) dated 09/29/2021; Chest Single View dated 03/26/2021 FINDINGS: Portable technique limits examination quality. The lungs are grossly clear. The heart is normal in size. Tortuous thoracic aorta. No displaced fract ures. IMPRESSION: No acute intrathoracic process suspected.
[2022-12-14 23:08] LABS: Hematocrit 39.8 % (36.0-45.0); Lymphocytes % 25.2 % (15.3-44.8); MCV 103.7 fL (80-100); MPV 6.6 fL (7.6-11.3); RBC Red Blood Cell Count 3.84 M/uL (3.86-4.86)
[2022-12-14 23:34] LABS: ALT/SGPT 22 U/L (13-56); AST/SGOT 21 U/L (15-37); Albumin 4.1 g/dL (3.4-5.0); Alkaline Phosphatase 71 U/L (45-117); BUN Blood Urea Nitrogen 21 mg/dL (7-18); Bicarbonate 29 mEq/L (21-32); Bilirubin Direct < 0.1 mg/dL (0-0.2); Bilirubin Indirect, Calculated ND mg/dL (0.2-0.8); Bilirubin Total 0.5 mg/dL (0.2-1.0); Glomerular Filtration Rate 46 ml/min (=/>90); Glucose Level 77 mg/dL (74-106); Magnesium 2.3 mg/dL (1.6-2.4); NT PRO-BNP 94 pg/mL (<125); Potassium 4.5 mEq/L (3.5-5.1); Protein, Total 8.5 g/dL (6.4-8.2); Sodium Level 140 mEq/L (136-145); Troponin High Sensitivity 27.5 pg/mL (<58.9)
--- NOTE | 2022-12-14 23:42 | RAD REPORT ---
EXAM DESCRIPTION: US - UPPER EXTREMITY VENOUS UNILATE - 12/14/2022 11:27 pm CLINICAL HISTORY: arm pain Arm swelling and edema. COMPARISON: Extremity Venous Uni Ltd dated 03/26/2021 FINDINGS: Right upper extremity venous system was interrogated with Doppler technique. Normal flow, compressibility and augmentation was noted. There is no DVT present. IMPRESSION: No evidence of right upper extremity deep venous thrombosis.
[2022-12-15 00:23] LABS: Protime INR 0.7
[2022-12-15 01:02] LABS: Specific Gravity 1.018 (1.005-1.030); Urine Bacteria <20 /HPF (<20); Urine Bilirubin NEGATIVE (Negative); Urine Blood Negative (Negative); Urine Clarity Extremely Turbid (Clear); Urine Color Light-Yellow (Yellow); Urine Glucose NEGATIVE (Negative); Urine Mucus Slight /HPF (None Seen); Urine Protein NEGATIVE (Negative); Urine RBC <5 /HPF (None Seen); Urine Urobilinogen Normal (Normal)
--- NOTE | 2022-12-15 02:35 | ER ---
Nurse's Notes [facility] Name: Kate Brice Age: 67 yrs Sex: Female : 1955 Arrival Date: 12/14/2022 Time: 18:15 Bed 15 Private MD: Diagnosis: Pain in right arm;Chest pain, unspecified Presentation: 12/14 18:50 Chief complaint: Patient states: Right arm pain onset Saturday. Pt states that the arm cm10 pain is worse with movement and with touch. Pt also reports that she was diagnosed with a UTI 10 days ago and completed ABX and provider started a 2nd round of ABX due to having urinary frequency. Pt states that she had an episode where her heart was racing. Coronavirus screen: Vaccine status: Patient reports receiving the 2nd dose of the covid vaccine. Client denies travel out of the [place] in the last 14 days. At this time, the client does not indicate any symptoms associated with coronavirus-19. Ebola Screen: Patient denies travel to an Ebola-affected area in the 21 days before illness onset. No symptoms or risks identified at this time. Initial Sepsis Screen: Does the patient meet any 2 criteria? No. Patient's initial sepsis screen is negative. Does the patient have a suspected source of infection? Yes: No. Patient's initial sepsis screen is negative. Risk Assessment: Do you want to hurt yourself or someone else? Patient reports no desire to harm self or others. 18:50 Method Of Arrival: Ambulatory cm10 18:50 Acuity: RACQUEL 3 cm10 18:54 Onset of symptoms was December 10, 2022. 10 Triage Assessment: 18:57 General: Appears in no apparent distress. comfortable, Behavior is calm, cooperative. cm10 Neuro: No deficits noted. Level of Consciousness is awake, alert, Oriented to person, place, time, situation. Respiratory: No deficits noted. Airway is patent Respiratory effort is even, unlabored, Respiratory pattern is regular, symmetrical. Historical: - Allergies: 18:54 NKDA; cm10 - Home Meds: 18:54 Verzenio 100 mg oral tablet [Active]; letrozole 2.5 mg oral tablet [Active]; gabapentin cm10 oral [Active]; - PMHx: 18:54 Arthritis; breast cancer; Hypertension; cm10 - PSHx: 18:54 knee replacement; hip replacement; hysterectomy; breast- removed 19 lymphnodes; cm10 - Immunization history:: Adult Immunizations up to date. - Social history:: Smoking status: Patient denies any tobacco usage or history of. Screenin:10 [facility] ED Fall Risk Assessment (Adult) History of falling in the last 3 months, ll3 including since admission No falls in past 3 months (0 pts) Confusion or Disorientation No (0 pts) Intoxicated or Sedated No (0 pts) Impaired Gait No (0 pts) Mobility Assist Device Used No (0 pt) Altered Elimination No (0 pt) Score/Fall Risk Level 0 - 2 = Low Risk Oriented to surroundings, Maintained a safe environment, Educated pt \T\ family on fall prevention, incl call for assistance when getting out of bed. Abuse screen: Denies threats or abuse. Denies injuries from another. Nutritional screening: No deficits noted. Tuberculosis screening: No symptoms or risk factors identified. Assessment: 23:08 General: Appears comfortable, Behavior is calm, cooperative. Pain: Complains of pain in ll3 right arm Pain does not radiate. Pain currently is 0 out of 10 on a pain scale. Pain began 4 days ago Is continuous. Neuro: Level of Consciousness is awake, alert, obeys commands, Oriented to person, place, time, situation. Cardiovascular: Reports palpitations, shortness of breath, since States felt palpitations while walking up, states symptoms resolved shortly after arrival Patient's skin is warm and dry. Rhythm is sinus bradycardia. Respiratory: Respiratory effort is even, unlabored, Respiratory pattern is regular, symmetrical. : Reports urinary frequency, since 2 weeks. Derm: Skin is pink, warm \T\ dry. Vital Signs: 18:50 BP 130 / 78; Pulse 60; Resp 16; Pulse Ox 100% on R/A; Weight 95.25 kg; Height 5 ft. 7 cm10 in. ; Pain 0/10; 23:07 BP 117 / 59; Pulse 50; Resp 14; Pulse Ox 100% on R/A; ll3 0624 00:21 BP 107 / 60; Pulse 59; Resp 19; Pulse Ox 99% on R/A; ll3 01:30 BP 106 / 70; Pulse 59; Resp 16; Pulse Ox 99% on R/A; ll3 02:30 BP 119 / 68; Pulse 58; Resp 20; Pulse Ox 98% on R/A; ll3 12/14 18:50 Body Mass Index 32.89 (95.25 kg, 170.18 cm) cm10 12/14 18:50 Pain Scale: Adult cm10 ED Course: 12/14 18:22 Patient arrived in ED. im 18:54 Triage completed. cm10 18:57 Arm band placed on Patient placed in waiting room. EKG completed in triage. Results cm10 shown to MD. 19:15 Ray Alberto PA is PHCP. stephy 19:15 Bhargav Lopez MD is Attending Physician. jmm 20:28 XRAY Chest (1 view) In Process Unspecified. EDMS 22:39 Missed attempt(s): Bleeding controlled, band aid applied, catheter tip intact. oe 23:02 Initial lab(s) drawn, by ED staff, sent to lab. Inserted saline lock: 22 gauge in left ll3 wrist, using aseptic technique. Blood collected. 23:02 Basic Metabolic Panel Sent. pf1 23:02 CBC with Diff Sent. pf1 23:02 LFT's Sent. pf1 23:02 Magnesium Sent. pf1 23:02 NT PRO-BNP Sent. pf1 23:03 PT-INR Sent. pf1 23:03 Troponin HS Sent. pf1 23:10 Patient has correct armband on for positive identification. Bed in low position. Call ll3 light in reach. Side rails up X 1. Adult w/ patient. 23:29 UPPER EXTREMITY VENOUS UNILATE In Process Unspecified. EDMS 12/15 02:55 No provider procedures requiring assistance completed. IV discontinued, intact, ll3 bleeding controlled, No redness/swelling at site. Pressure dressing applied. Administered Medications: 02:54 Drug: Acetaminophen PO 650 mg Route: PO; ll3 02:56 Follow up: Response: Medication administered at discharge. ll3 Medication: 02:55 VIS not applicable for this client. ll3 Outcome: 02:34 Discharge ordered by . [facility] 02:55 Discharged to home ambulatory, with family. ll3 02:55 Condition: stable 02:55 Discharge instructions given to patient, family, Instructed on discharge instructions, follow up and referral plans. medication usage, Demonstrated understanding of instructions, follow-up care, medications, Prescriptions given X 2. 02:56 Patient left the ED. ll3 Signatures: Dispatcher [employer] EDMS Ray Alberto PA PA jmm Malagon, Nima oe Loubet, Lynsea, RN RN ll3 Sanjuanita Joseph RN RN pf1 Ayanna Rolle Clarissa RN RN cm10
--- NOTE | 2022-12-15 02:35 | EDPHYS ---
Physician Documentation [facility] Name: Kate Brice Age: 67 yrs Sex: Female : 1955 Arrival Date: 12/14/2022 Time: 18:15 Bed 15 Private MD: ED Physician Bhargav Lopez HPI: 12/14 19:45 This 67 yrs old Black Female presents to ER via Ambulatory with complaints of General jmm Weakness, Arm Pain. 19:45 The patient or guardian complains of pain. Onset: The symptoms/episode began/occurred jmm gradually. Is a 67-year-old female with history of breast cancer, currently in remission, hypertension, arthritis the presents emerged part with complaints of right arm pain. Denies any injury. Pain is mainly in the antecubital region and extends up to the mid humeral region. Patient states in route to the ER she developed transient episode of chest pain which lasted approximately 5 minutes that she described as palpitations.. Historical: - Allergies: 18:54 NKDA; cm10 - Home Meds: 18:54 Verzenio 100 mg oral tablet [Active]; letrozole 2.5 mg oral tablet [Active]; gabapentin cm10 oral [Active]; - PMHx: 18:54 Arthritis; breast cancer; Hypertension; cm10 - PSHx: 18:54 knee replacement; hip replacement; hysterectomy; breast- removed 19 lymphnodes; cm10 - Immunization history:: Adult Immunizations up to date. - Social history:: Smoking status: Patient denies any tobacco usage or history of. ROS: 19:45 Constitutional: Negative for fever, chills, and weight loss, Respiratory: Negative for jmm shortness of breath, cough, wheezing, and pleuritic chest pain. 19:45 MS/extremity: Positive for pain. 19:45 All other systems are negative. Exam: 19:45 Constitutional: This is a well developed, well nourished patient who is awake, alert, jmm and in no acute distress. Head/Face: atraumatic. Eyes: EOMI, no conjunctival erythema appreciated ENT: Moist Mucus Membranes Neck: Trachea midline, Supple Chest/axilla: Normal chest wall appearance and motion. Cardiovascular: Regular rate and rhythm. No edema appreciated Respiratory: Normal respirations, no respiratory distress appreciated Abdomen/GI: Non distended Back: Normal ROM Skin: General appearance color normal 19:45 Musculoskeletal/extremity: Full range of motion appreciated to the right elbow, compartments are soft, full hospital orderly strength, full radial pulse, neurovascular intact. 19:45 Skin: Appearance: Color: normal in color, abscess. 19:45 Neuro: Orientation: is normal, Mentation: is normal, Memory: is normal. 19:45 Psych: Behavior/mood is pleasant, cooperative. Vital Signs: 18:50 BP 130 / 78; Pulse 60; Resp 16; Pulse Ox 100% on R/A; Weight 95.25 kg; Height 5 ft. 7 cm10 in. ; Pain 0/10; 23:07 BP 117 / 59; Pulse 50; Resp 14; Pulse Ox 100% on R/A; ll3 12/15 00:21 BP 107 / 60; Pulse 59; Resp 19; Pulse Ox 99% on R/A; ll3 01:30 BP 106 / 70; Pulse 59; Resp 16; Pulse Ox 99% on R/A; ll3 02:30 BP 119 / 68; Pulse 58; Resp 20; Pulse Ox 98% on R/A; ll3 12/14 18:50 Body Mass Index 32.89 (95.25 kg, 170.18 cm) cm10 12/14 18:50 Pain Scale: Adult cm10 MDM: 12/14 19:45 Patient medically screened. [facility] 12/15 02:33 Differential diagnosis: DVT, ACS, Pneumonia. Data reviewed: vital signs, nurses notes, [facility] lab test result(s), radiologic studies, plain films, ultrasound. Consideration of Admission/Observation Escalation of care including admission/observation considered. I considered the following discharge prescriptions or medication management in the emergency department Medications were administered in the Emergency Department. See MAR. Counseling: I had a detailed discussion with the patient and/or guardian regarding: the historical points, exam findings, and any diagnostic results supporting the discharge/admit diagnosis, lab results, radiology results, the need for outpatient follow up, to return to the emergency department if symptoms worsen or persist or if there are any questions or concerns that arise at home. Refusal of service: The patient/guardian displays adequate decision making capability and despite a detailed discussion of alternatives, benefits, risks, and consequences refuses: Admission to the hospital for further work-up and treatment. 12/14 19:47 Order name: Basic Metabolic Panel; Complete Time: 23:41 [facility] 12/14 19:47 Order name: CBC with Diff; Complete Time: 23:12 [facility] 12/14 19:47 Order name: LFT's; Complete Time: 23:41 [facility] 12/14 19:47 Order name: Magnesium; Complete Time: 23:41 [facility] 12/14 19:47 Order name: NT PRO-BNP; Complete Time: 23:41 [facility] 12/14 19:47 Order name: PT-INR; Complete Time: 00:26 [facility] 12/14 19:47 Order name: Troponin HS; Complete Time: 23:41 [facility] 12/14 20:43 Order name: Urinalysis w/ reflexes; Complete Time: 01:04 [facility] 12/15 01:06 Order name: Urine Culture [facility] 12/15 01:18 Order name: Troponin High Sensitivity: repeat; Complete Time: 02:32 [facility] 12/14 19:47 Order name: XRAY Chest (1 view); Complete Time: 20:36 [facility] 12/14 21:40 Order name: UPPER EXTREMITY VENOUS UNILATE; Complete Time: 23:43 [facility] 12/14 19:47 Order name: EKG; Complete Time: 19:48 [facility] 12/14 19:47 Order name: Cardiac monitoring; Complete Time: 23:02 [facility] 12/14 19:47 Order name: EKG - Nurse/Tech; Complete Time: 23:07 [facility] 12/14 19:47 Order name: IV Saline Lock; Complete Time: 23:02 [facility] 12/14 19:47 Order name: Labs collected and sent; Complete Time: 23:02 [facility] 12/14 19:47 Order name: O2 Per Protocol; Complete Time: 23:02 [facility] 12/14 19:47 Order name: O2 Sat Monitoring; Complete Time: 23:02 [facility] Administered Medications: 02:54 Drug: Acetaminophen PO 650 mg Route: PO; ll3 02:56 Follow up: Response: Medication administered at discharge. ll3 Disposition Summary: 12/15/22 02:34 Discharge Ordered Location: Home [facility] Condition: Stable [facility] Diagnosis - Pain in right arm jmm - Chest pain, unspecified [facility] Followup: [facility] - With: Private Physician - When: 1 - 2 days - Reason: Recheck today's complaints, Continuance of care, Re-evaluation by your physician Discharge Instructions: - Discharge Summary Sheet m - Nonspecific Chest Pain, Adult jmm - Musculoskeletal Pain jm Forms: - Medication Reconciliation Form jmm - Thank You Letter jmm - Antibiotic Education [facility] - Prescription Opioid Use [facility] Prescriptions: - Voltaren Arthritis Pain 1 % Topical gel - apply 4 gram by TOPICAL route 4 times per day As needed apply to single knee, jmm ankle, foot; for foot includes sole/toes/top of foot; 1 unit; Refills: 0, Product Selection Permitted - orphenadrine citrate 100 mg Oral Tablet Sustained Release - take 1 tablet by ORAL route 2 times per day As needed; 20 tablet; Refills: 0, [facility] Product Selection Permitted Addendum: 12/18/2022 10:22 Co-signature as Attending Physician, Bhargav Lopez MD I reviewed the patient's care r t provided by the Advanced Practice Provider and agree with the diagnosis and treatment plan. Signatures: Dispatcher [employer] EDMS Ray Alberto PA PA jmm Loubet, Lynsea RN RN ll3 Bhargav Lopez MD MD rt Doris Lerner RN RN cm10 Corrections: (The following items were deleted from the chart) 12/14 21:40 19:48 Extremity Venous Uni Ltd+[email or web address] ordered. [facility] EDNE
[2022-12-15] MEDS ORDERED: ACETAMINOPHEN 325 MG TABLET ONE (02:56)
[2022-12-15 03:08] VITALS: BP 119/68; O2SAT 98
--- NOTE | 2022-12-16 14:25 | EKG ---
Test Date: 2022-12-14 Test Time: 18:56:29 Electrical Wirer: JEANNE MEASUREMENT RESULTS: Intervals: Rate: 61 SC: 130 QRSD: 82 QT: 422 QTc: 424 [place]: P: 47 SC: 130 QRS: 55 T: 45 INTERPRETIVE STATEMENTS: Normal sinus rhythm Normal ECG Compared to ECG 01/08/2022 15:06:58 No significant changes Electronically Signed On 12-16-22 14:22:15 CDT by Hugo Davis
== END 2022-12-15 02:56 | disposition home or self-care (01) ==
LOC: ER 18:15
DX: M79.601 Pain in right arm (principal); R07.9 Chest pain, unspecified; R53.1 Weakness; I10 Essential (primary) hypertension; Z85.3 Personal history of malignant neoplasm of breast
CPT/HCPCS: 36415; 71045; 80048; 80076; 81001; 83735; 83880; 84484; 85025; 85610; 87086; 87088; 93005; 93971; 99284

== ENCOUNTER 2023-05-02 15:00 | Emergency (ER) | payer OTHER ==
--- OUTSIDE RECORDS SUMMARY | 2023-05-02 15:05 | XMS REPORT | Clinical Summary ---
:1955 Author Organization [facility] MD [facility] Address [address] [place] [address] Care Team Providers Name Role Phone Kasi Triplett MD Unavailable Larissa Fermin MD Unavailable [phone] Madeleine Plaza MD Primary Care Provider [phone] Adam Melendez MD Unavailable Misty Cardoza MD Unavailable Yoav Valdez MD Unavailable Danisha Arias MD Unavailable Allergies Active Allergy Reactions Criticality Noted Date Comments Lidocaine 10/27/2021 Makes hands itc h few days after injection Paclitaxel Other (See Comments) 11/14/2021 CO: cou ghing flushing, feeling tighten ing of breath & feelin g hot. Infusion stoppe d. Diphenhydramine 50mg, famotidine 40mg , & hydrocortisone 100mg given. After re solution of symptoms infusi on rechallenged @ 1/2 rate and finished in fusion at full rate w/o f urther complications [...] longer taking, Informant: Self, Reported on 06/20/2022 letrozole (Femara) 2.5 Take 1 tablet 90 tablet 3 07/23/2022 Active mg tabletIndications: (2.5 mg) by Infiltrating ductal mouth daily. carcinoma of central portion of right female breast fluticasone propionate Inhale 1 spray 0 09/12/2022 Active (FLONASE) 50 mcg/spray (50 mcg) into nasal spray each nostril daily. abemaciclib (Verzenio) Take 1 tablet 56 tablet 3 10/23/2022 Active 100 mg (100 mg) by tabletIndications: mouth twice Infiltrating ductal daily. carcinoma of central portion of right female breast abemaciclib (Verzenio) Take 1 tablet 56 tablet 4 10/24/2022 Active 100 mg (100 mg) by tabletIndications: mouth twice Infiltrating ductal daily. carcinoma of central portion of right female breast gabapentin (NEURONTIN) Take 1 capsule 60 capsule 4 01/14/2023 Active 300 mg (300 mg) by capsuleIndications: mouth twice Infiltrating ductal daily. carcinoma of central portion of right female breast abemaciclib (Verzenio) Take 1 tablet 56 tablet 4 04/10/2023 Active 100 mg (100 mg) by tabletIndications: mouth twice Infiltrating ductal daily. carcinoma of central portion of right female breast acetaminophen (TYLENOL) Take by mouth 0 Discontinued 500 mg tablet as needed. (Stop Taking at Discharge) traMADol (Ultram) 50 mg Take 1 tablet 30 tablet 2 11/13/2021 1 07/26 Discontinued tabletIndications: (50 mg) by (Stop Taking at Infiltrating duct mouth every 6 Discharge) carcinoma of right (six) hours as female breast needed for moderate pain (headache). lidocaine-prilocaine Apply topically 30 g 0 11/14/2021 Discontinued (EMLA) 2.5-2.5% to (T herapy creamIndications: area(s) as c ompleted) Infiltrating duct needed for mild carcinoma of right pain. female breast traMADol (Ultram) 50 mg Take 1 tablet 30 tablet 2 02/11/202207/23 Discontinued tabletIndications: (50 mg) by Infiltrating duct mouth every 6 carcinoma of right (six) hours as female breast needed for moderate pain (headache). cefdinir (OMNICEF) 300 Take 1 capsule 0 03/23/2022 1 07/23 Discontinued (Not mg capsule by mouth Appl icable) daily. gabapentin (NEURONTIN) Take 1 capsule 30 [...] tablet 0 05/24/202207/23 Discontinued (Not 800 mg (800 mg) Applicab le) tabletIndications: mouth every 8 Neoplasm of breast (eight) hours regional lymph node as needed for staging category N1: moderate pain Metastasis to movable or mild pain. ipsilateral level I, II axillary lymph node(s) gabapentin (NEURONTIN) Take 1 capsule 60 capsule 4 06/20/202201/14 Discontinued 300 mg (300 mg) (Reorder ) capsuleIndications: mouth twice Infiltrating ductal daily. carcinoma of central portion of right female breast abemaciclib (Verzenio) Take 1 tablet 56 tablet 5 09/17/2022 Discontinued 150 mg by mouth twice tabletIndications: daily. Infiltrating ductal carcinoma of central portion of right female breast Active Problems Patient Care Coordination Note Formatting of this note might be differe nt from the original. 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, II axillary lymph node(s) Infiltrating ductal carcinoma of central portion of right female breast Cancer Staging: Clinical stage from 2021: Stage IIB (cT2, cN1(f), cM0, G2, ER+, ID-, HER2-) - Unsigned Pathologic stage from 05/24/2022: No Stag e Recommended (ypT2, pN1a, cM0, GX, ER+, ID-, HER2-) - Unsigned Encounters Date Type Department Care Team Description 05/01/2023 Telephone Erika Orr Integrative Medicine RN 0 [facility], Floor 7 [place] [address] 04/29/2023 Telephone Erika Orr Integrative Medicine RN 0 [facility], Floor 7 [place] [address] 04/25/2023 Telephone [facility] Medical lining inserter [address] [facility] [address] [place] [address] 04/25/2023 Orders Only MD [facility], Land - Breast Medical PA Oncology [address] [place] [address] 04/19/2023 Orders Only MD [facility]ille [facility], Infilt rating Land - Breast Medical PA ductal carcinoma Oncology of central portion [address] of right fe male [place] breast (Primary [address] Dx) [place] [address] 04/15/2023 Follow[facility] Infil trating 11:20 AM Land - Breast Medical ductal carcinoma CDT Oncology of central portion [address] of right male [place] breast [address] [place] [address] 04/15/2023 Travel 04/08/2023 Orders Only [facility] Infilt rating [place] - Breast Medical PA ductal carcinoma Oncology of central portion [address] of right male [place] breast (Primary [address] Dx) [place] [address] 03/04/2023 Follow-Up MD Neville in [facility] HugoDanisha, Infil trating 11:20 AM Land - Breast Medical ductal carcinoma CDT Oncology of central portion [address] of right male [place] breast [address] [place] [address] 03/04/2023 Travel 02/11/2023 Telephone Internal Medicine Patti Limon (/) Center Hung B, RN [address] [facility], [address] [place] [address] [place] [address] 02/05/2023 Refill MD [facility], Infilt rating Land - Breast Medical PA ductal carcinoma Oncology of central portion [address] of right fe male [place] breast [address] [place] [address] 01/29/2023 Follow-Up MD Neville in [facility] MelaMadeleine Infil trating 11:00 AM Land - Breast Surgery Remedios Moore, ducta l carcinoma CDT Oncology MD of central portion [address] of right [place] [address] 01/29/2023 Ancillary Procedure Diagnostic Imaging in Alfredo jones Infiltrating 9:00 AM CDT [facility] Chelsie, PA ductal carcinoma [address] of central portion [address] of right fem nidia [address], [address] [place] [address] 01/29/2023 Travel 01/23/2023 Telephone MD Neville in [facility], 2:20 PM CDT [facility] Micah CLAY Oncology Risa Trevino, [address] [facility] [address] [place] [address] 01/23/2023 Orders Only MD Neville in [facility] Risa Trevino, Infilt rating [facility] Micah RENNER ductal carcinoma Oncology of central portion [address] of right fe male [place] breast (Primary [address] Dx) [place] [address] 01/14/2023 Follow-Up MD Neville in [facility], Infil trating 11:40 AM [facility] Micah CLAY ductal carcinoma CDT Oncology of central portion [address] of right fe male [place] breast (Primary [address] Dx) [place] [address] 01/14/2023 Travel 01/01/2023 Telephone MD Neville in [facility], 11:00 AM [facility] Micah CLAY CDT Oncology [address] [facility] [address] [place] [address] 12/31/2022 Telephone [facility] Erika Sheikh Integrative Medicine RN [address] [facility] Science [place], Floor 7 [place], [place] [address] 12/28/2022 Ancillary Procedure Diagnostic Imaging in Risa Trevino , Infiltrating 2:00 PM CDT [facility] ductal carcinoma [address] of central portion [address] of right fem nidia [address], [address] [place] [address] 12/28/2022 Ancillary Procedure Diagnostic Imaging in Risa Trevino , Infiltrating 1:45 PM CDT [facility] ductal carcinoma [address] of central portion [address] of right fem nidia [address], [address] [place] [address] 12/28/2022 Ancillary Procedure Diagnostic Imaging in Risa Trevino , Infiltrating 12:45 PM [place] PA ductal carcinoma CDT [address] of central portion [address] of right fem nidia [address], [address] [place] [address] 12/28/2022 Orders Only MD Neville in [facility] Risa Trevino, Martha Obrien PA Oncology [address] [facility] [address] [place] [address] 12/27/2022 Telephone [facility] Erika Sue Integrative Medicine RN [address] [facility], Floor 7 [place] [address] 12/17/2022 Follow-Up MD [facility] in [facility], Infil trating 8:00 AM CDT Martha Obrien MD ductal carcinoma Oncology Risa Trevino, of central portion [address] [facility] PA of right fe male [place] breast (Primary [address] Dx) [place] [address] 12/17/2022 Travel 11/21/2022 Telephone MD Neville in [facility] Jackie Deal Land - Breast Micah lining inserter [address] [facility] [address] [place] [address] 11/20/2022 Follow-Up MD Neville in [facility] Danisha, Infil trating 11:40 AM Martha Obrien MD ductal carcinoma CDT Oncology Risa Trevino, of central portion [address] PA of right fe male [place] breast (Primary [address] Dx) [place] [address] 11/20/2022 Travel 10/24/2022 Orders Only MD Neville in [facility] Risa Trevino, Infilt rating Martha RENNER ductal carcinoma Oncology of central portion [address] of right fe male [place] breast (Primary [address] Dx) [place] [address] 10/22/2022 Follow-Up MD Neville in [facility] [place] [facility], Infil trating 9:20 AM CDT Martha Obrien MD ductal carcinoma Oncology of central portion [address] of right fe male [place] breast [address] [place] [address] 10/22/2022 Travel 10/01/2022 Telephone MD Neville in [facility] Jackie Deal Land - Breast Medical lining inserter [address] [place] [address] 200 [place] [address] 09/17/2022 Follow-Up MD Neville in Danisha Bautista, Infil trating 8:00 AM CDT Martha Obrien MD ductal carcinoma Oncology of [address] of [facility] breast [address] [place] [address] 09/17/2022 Travel 08/23/2022 Nutrition Clinical Nutrition Madeleine Plaza 1:00 PM FIELD MECHANICAL METER TESTER For your Nutrition Remedios Moore, appointment location MD directions please Florinda Tom call: C, RD [phone] 08/20/2022 Orders Only MD Neville in [facility] Risa Trevino, Martha - Breast Medical PA Oncology [address] [place] [address] 08/16/2022 Telephone MD Neville in [facility] Jackie Deal [place] - Breast Medical lining inserter [address] [place] [address] 08/09/2022 Orders Only MD Neville in [facility] Risa Trevino, Land - Breast Medical PA Oncology [address] [place] [address] 08/02/2022 Orders Only MD Neville in [facility] Risa Trevino, Land - Breast Medical PA Oncology [address] [place] [address] 07/23/2022 Follow-Up MD Neville in [facility] Danisha Arias, Infil trating 10:00 AM Martha Obrien MD ductal carcinoma FIELD MECHANICAL METER TESTER Oncology of [address] of [facility] breast [address] [place] [address] 07/23/2022 Travel 06/29/2022 Telephone MD Neville in Annalise Jackie Deal Land - Breast Medical lining inserter [address] [place] [address] 06/20/2022 Clinical Support MD Neville in [facility] Alan-Navarrete Infiltrating 11:00 AM Land - Chelsie Finley PA ductal carcinoma FIELD MECHANICAL METER TESTER Oncology Aleksey, of central portion [address] [facility] ENRIKE Cheung of right [place] [address] 06/20/2022 Orders Only MD Neville in [facility] Risa Trevino, Bartt [facility] Medical PA ductal carcinoma Oncology of central portion [address] of right fe male [place] breast [address] [place] [address] 06/20/2022 Telephone MD Neville in [facility] Jackie Deal [facility] Medical lining inserter [address] [facility] [address] [place] [address] 06/20/2022 Travel 06/19/2022 Orders Only [facility] In[facility] Land - Breast Surgery , ZURDO Holguin ductal carcinoma Oncology of central portion [address] of right fe male [place] breast ([place] [address] Dx) [phone] 06/14/2022 Clinical Support MD Neville in [facility] Alan-Landon Infiltrating 2:30 PM FIELD MECHANICAL METER TESTER [facility] - Surgical Chelsie PA ductal carcinoma Oncology JeremiasCharmaine of central portion [address] [facility] Hunt RN of right [place] [address] 06/14/2022 Travel 06/13/2022 Orders Only MD [facility] Infi ltrating Land - Breast Surgery , ZURDO Holguin ductal carcinoma Oncology of central portion [address] of right fe male [place] breast ([place] [address] Dx) [phone] 06/08/2022 Office Visit MD Neville in [facility] Refinetti, Madeleine Infil trating 2:30 PM FIELD MECHANICAL METER TESTER Land - Breast Surgery nagi Nunes l carcinoma Oncology MD of central portion [address] of right [place] [address] 06/08/2022 Orders Only MD Neville in Sugar Maylin [facility] - Breast Surgery Chelsie PA Oncology [address] [place] [address] 06/08/2022 Travel 06/05/2022 Telemedicine MD Neville in [facility] Dianna Oconnor, [facility] trating ductal carcinoma of central portion of right female breast (Primary Dx); 9:00 AM FIELD MECHANICAL METER TESTER [facility] - Radiation MD Neoplasm of breast regional lymph node staging category N1: 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, II axillary lymph node(s) Oncology [address] [facility] [address] [place] [address] 06/05/2022 Telephone MD Neville in [facility] Hugo [facility] - Breast Medical MD Oncology [address] [facility] [address] [place] [address] 06/01/2022 Office Visit Center for Yoav Valdez 9:15 AM FIELD MECHANICAL METER TESTER Reconstructive Surgery MD Victor M ducta l carcinoma - 8th Floor of central portion [address] of right female [facility], 8th Rene or breast (Primary Elevator U Dx) [place] [address]330 06/01/2022 Travel 05/28/2022 Orders Only [facility]astro[facility]d [facility] [place] [facility] Oncology MD Karis [address] Main Bldg, 7th Floor Elevator A [place] [address] 05/28/2022 Telephone Gastrointestinal Redd [facility] [place] - Surgical Isami Oncology MD Karis [address] Main Bldg, 7th Floor Elevator A [place] [address] 05/28/2022 Nurse Triage Parul Santa [address] [place] [address] 05/28/2022 Telephone BELLA Ren, Discharge Call (/) [address] [place] [address] 05/27/2022 Telephone BELLA Nagel, Discharge Call 15[address] [facility] [place] [address] 05/26/2022 Nurse Triage [facility] PHYSICIAN Kath, [address] [place] [address] 05/25/2022 Nurse Triage [facility] PHYSICIAN Jackeline Andrew [address] [place] [address] 05/24/2022 Anesthesia Event MAIN OR Alba Reyes, 3:59 PM FIELD MECHANICAL METER TESTER [address] [place] [place] [address] Melissa Geller, DISTRIBUTION ENGINEERING TECHNOLOGIST 05/24/2022 Surgery MAIN OR Madeleine Plaza SEED LOC; 3:00 PM FIELD MECHANICAL METER TESTER [address] [place] [address] MASTECTOMY 05/24/2022 9:10 PM FIELD MECHANICAL METER TESTER 05/24/2022 Hospital Encounter Breast Imaging [facility] Discharge 12:00 PM [address] Posey PA Disposition: Home [facility] - [facility], 5th Rene or 05/24/2022 Elevator T 11:59 [place] [address] FIELD MECHANICAL METER TESTER [phone] 05/24/2022 Hospital Encounter MAIN [id number] Madeleine Plaza Neoplasm of breast regional lymph node staging category N1: 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, II axillary lymph node(s) (Primary Dx); 11:30 AM [address] Moore, Infiltrating duct carcinoma of right female breast FIELD MECHANICAL METER TESTER - Manjeet CLAY Discharge Disposition: Home 05/25/2022 [place] [address] 1:44 PM FIELD MECHANICAL METER TESTER [phone] 05/24/2022 Orders Only Center for Erika Daniels Infiltrating Reconstructive Surge ZURDO Zarate ductal carcinoma [address] of central portion [facility], 5th Rene or of right female Elevator U breast ([place] [address] Dx) [phone] 05/24/2022 Travel 05/23/2022 Anesthesia Event Perioperative Kyleigh Arellano 11:59 PM Evaluation and A, COST CLERK FIELD MECHANICAL METER TESTER Management [facility] [address] Bldg, 6th [place] [address] 05/23/2022 Ancillary Procedure Diagnostic Imaging in Infiltrating 3:45 PM FIELD MECHANICAL METER TESTER [facility] ductal carcinoma [address] of central portion [address] [employer] of right fem nidia [address], [address] [place] [address] 05/23/2022 Ancillary Procedure Nuclear Medicine Alan-Navarrete 3:00 PM FIELD MECHANICAL METER TESTER [address] Chelsie PA [facility], 6th Floor, [place] [address] 05/23/2022 Ancillary Procedure Diagnostic Imaging in Infiltrating 1:45 PM FIELD MECHANICAL METER TESTER [facility] ductal carcinoma [address] of central portion [address] of right fem nidia [address], [address] [place] [address] 05/23/2022 Ancillary Procedure Nuclear Medicine Alan-Navarrete 12:[address] , ZURDO Holguin FIELD MECHANICAL METER TESTER [facility], 6th Floor, [place] [address] 05/23/2022 Ancillary Procedure Nuclear Medicine Alan-Navarrete Infiltrating 11:[address] , ZURDO Holguin ductal carcinoma FIELD MECHANICAL METER TESTER [facility], 6th of central portion Floor, [place] [address] breast [phone] 05/23/2022 Consult Center for Yoav Valdez Infiltrating 8:45 AM FIELD MECHANICAL METER TESTER Reconstructive Surgery MD nagi Dow l carcinoma - 8th Floor of central portion [address] of right female [facility], 8th [place]ene [place] [address] 05/23/2022 POEM Appointments Perioperative Alan-Navarrete Infilt rating duct 8:00 AM FIELD MECHANICAL METER TESTER Evaluation and , ZURDO Holguin carcinoma of right Management [facility] female breast [address] Bldg, 6th [place] [address] 05/23/2022 Orders Only MD Neville in [facility] WaqasLandon [facility] - Breast Surgery , ZURDO Holguin Oncology [address] [place] [address] 05/23/2022 Telephone [facility] - Breast Surgery F, lining inserter [address] [place] [address] 05/23/2022 Travel 05/09/2022 Orders Only MD Neville in [facility] - Breast Surgery , ZURDO Holguin Oncology [address] [place] [address] after 05/02/2022 Surgical History Surgery Date Site/Laterality Comments HYSTERECTOMY TOTAL HIP ARTHROPLASTY Bilateral TOTAL KNEE ARTHROPLASTY Right ID MASTECTOMY PARTIAL 05/24/2022 Breast/Right Procedure: SEED LOC; SEGMENTAL MASTEC JERRY; Surgeon: Madeleine Calvillo MD; L ocation: MAIN OR; Service: MAIA AST ID BX/EXC LYMPH NODE OPEN DEEP 05/24/2022 Axilla/Right P rocedure: TARGETED AXILLARY AXILLARY NODE NODE DISSECTION; Surgeon: Madeleine stokes MD; Location: MAIN O R; Service: BREAST ID AXILLARY LYMPHADENECTOMY 05/24/2022 Axilla/Right Proc edure: AXILLARY COMPLETE LYMPHADENECTOMY; Surgeon: Madeleine stokes MD; Location: MAIN O R; Service: BREAST ID INTRAOP SENTINEL LYMPH NODE 05/24/2022 Breast/Right P rocedure: INTRAOPERATIVE ID W/DYE INJECTION LYMPHATIC MAP PING; Surgeon: Madeleine Plaza MD; Location: [place] IN OR; Service: BREAST ID RMVL BRIANA CTR VAD W/SUBQ 05/24/2022 Chest/Left Proce dure: PORT-A-CATH PORT/ENTRY LEVEL ELECTRICAL ENGINEER CTR/PRPH INSJ REMOVAL; Surgeon: Madeleine Plaza MD; Location: MAIN O R; Service: BREAST ID REPAIR COMPLEX TRUNK 05/24/2022 Breast/Right Procedur e: [...] = 0.6 oz pure alcoho l) Sex and Gender Information Value Date Recorded Sex Assigned at Not on file Gender Identity Not on file Sexual Orientation Not on file Job Start Date Occupation Industry Not on file Not on file Not on file Obstetrics History Para Term AB IAB SAB Ectopic Multiple Living Live Births 2 2 Date Outcome GA Total Labor/2nd/3rd Weight Sex Delivery Anes PTL Sakshi A 1 A5 Name Clin Labor Para Para Comments Parity: 21 yo Menarche: 15 yo BCP none HRT: none Menopause: 40's Last Filed Vital Signs Vital Sign Reading Time Taken Comments Blood Pressure 144/81 04/15/2023 11:30 AM CDT Pulse 54 04/15/2023 11:30 AM CDT Temperature 36.6 C (97.9 F) 04/15/2023 11:30 AM CDT Respiratory Rate 18 04/15/2023 11:30 AM CDT Oxygen Saturation 99% 01/29/2023 12:15 PM CDT Inhaled Oxygen Concentration - - Weight 94.4 kg (208 lb 1.8 oz) 03/04/2023 11:43 AM CDT Height 167 cm (5' 5.75") 05/24/2022 10:31 PM FIELD MECHANICAL METER TESTER Body Mass Index 33.85 05/24/2022 10:31 PM FIELD MECHANICAL METER TESTER Plan of Treatment Date Type Department Care Team Description 05/07/2023 1:00 Lab MD [facility] PA PM FIELD MECHANICAL METER TESTER [facility] - Lab [facility] [address] [place] [address] [address] [place] [phone] [address] (Work) [place] 348688 [phone] 05/07/2023 2:00 Follow-Up MD Neville in [facility] Tracy Arias MD PM FIELD MECHANICAL METER TESTER [facility] - Breast 1515 [facility] Medical Oncology [place] [id number] [address] [place] [address] [place] (Work) [address] [place] [address] 05/08/2023 2:00 Evaluation MD Neville in [facility], ZURDO Mcdowell [address] [place] [phone] PM FIELD MECHANICAL METER TESTER [place] - Physical Tracey Ellison, PT [address] [place], [place] [id number] Therapy [address] [facility] 4th Floor [address] [place] [address] 01/31/2024 Ancillary Procedure Diagnostic Imaging Maylin , 11:00 AM CDT in [facility] ZURDO Holguin [address] [facility] 15[address] [facility] [address] [place] [address] [address], [address] [place] [address] (Work) [phone] 01/31/2024 1:00 Follow-Up MD Neville in [facility] PM CDT [place] - Breast Remedios Moore MD Surgery Oncology [address] [facility] [facility] [address] [place], [place] [address] [address] [phone] [place] [address] (Work) [phone] Health Maintenance Due Date Last Done Comments COVID-19 Vaccination (#1) 10/13/1960 Medical Devices Implanted Type Area Game Agent Device Shelf Model / Identifier Expiration Serial / Date Lot Candida Potts Isp 8fr - [id number] Port Left: BARD PERIPHER AL 09/21/2022 [id number] / Implanted: Qty: 1 on 11/14/2021 at [facility] st VASCULAR [id number] / Explanted: 05/24/2022 (Quantity not on file) Wall [id number] Knee Replacement Right: Knee Description: right Procedures Procedure Name Priority Date/Time Associated Comments Diagnosis .CBC Routine 04/15/2023 11:12 Infiltrating ductal Resu lts for this AM CDT carcinoma of procedure are i n central portion of the resul ts right female breast section. COMPREHENSIVE METABOLIC Routine 04/15/2023 11:12 Infiltrating ductal Results for this PANEL AM CDT carcinoma of procedure are i n central portion of the resul ts right female breast section. COMPLETE BLOOD COUNT W/ Routine 04/15/2023 11:12 Infiltrating ductal Results for this DIFFERENTIAL AM CDT carcinoma of procedure are i n central portion of the resul ts right female breast section. DIFFERENTIAL Routine 03/04/2023 11:11 Infiltrating ductal Resu lts for this AM CDT carcinoma of procedure are i n central portion of the resul ts right female breast section. .CBC Routine 03/04/2023 11:11 Infiltrating ductal Resu lts for this AM CDT carcinoma of procedure are i n central portion of the resul ts right female breast section. FRACTIONATED BILIRUBIN Routine 03/04/2023 11:11 Infiltrating d uctal Results for this AM CDT carcinoma of procedure are i n central portion of the resul ts right female breast section. TOTAL PROTEIN Routine 03/04/2023 11:11 Infiltrating ductal Res ults for this AM CDT carcinoma of procedure are i n central portion of the resul ts right female breast section. ASPARTATE Routine 03/04/2023 11:11 Infiltrating ductal Resu lts for this AMINOTRANSFERASE AM CDT carcinoma of procedure a re in central portion of the resul ts right female breast section. ALANINE AMINOTRANSFERASE Routine 03/04/2023 11:11 Infiltrating ductal Results for this AM CDT carcinoma of procedure are i n central portion of the resul ts right female breast section. ALKALINE PHOSPHATASE Routine 03/04/2023 11:11 Infiltrating hoda kulwant Results for this AM CDT carcinoma of procedure are i n central portion of the resul ts right female breast section. ALBUMIN LEVEL Routine 03/04/2023 11:11 Infiltrating ductal Res ults for this AM CDT carcinoma of procedure are i n central portion of the resul ts right female breast section. CALCIUM LEVEL Routine 03/04/2023 11:11 Infiltrating ductal Res ults for this AM CDT carcinoma of procedure are i n central portion of the resul ts right female breast section. .GLOMERULAR FILTRATION Routine 03/04/2023 11:11 Infiltrating d uctal Results for this RATE AM CDT carcinoma of procedure are i n central portion of the resul ts right female breast section. SERUM CREATININE Routine 03/04/2023 11:11 Infiltrating ductal Results for this AM CDT carcinoma of procedure are i n central portion of the resul ts right female breast section. ELECTROLYTE PANEL Routine 03/04/2023 11:11 Infiltrating ductal Results for this AM CDT carcinoma of procedure are i n central portion of the resul ts right female breast section. BLOOD UREA NITROGEN Routine 03/04/2023 11:11 Infiltrating duct al Results for this AM CDT carcinoma of procedure are i n central portion of the resul ts right female breast section. GLUCOSE LEVEL Routine 03/04/2023 11:11 Infiltrating ductal Res ults for this AM CDT carcinoma of procedure are i n central portion of the resul ts right female breast section. 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 DIFFERENTIAL Routine 01/14/2023 11:21 Infiltrating ductal Resu lts for this AM CDT carcinoma of procedure are i n central portion of the resul ts right female breast section. .CBC Routine 01/14/2023 11:21 Infiltrating ductal Resu lts for this AM CDT carcinoma of procedure are i n central portion of the resul ts right female breast section. FRACTIONATED BILIRUBIN Routine 01/14/2023 11:21 Infiltrating d uctal Results for this AM CDT carcinoma of procedure are i n central portion of the resul ts right female breast section. TOTAL PROTEIN Routine 01/14/2023 11:21 Infiltrating ductal Res ults for this AM CDT carcinoma of procedure are i n central portion of the resul ts right female breast section. ASPARTATE Routine 01/14/2023 11:21 Infiltrating ductal Resu lts for this AMINOTRANSFERASE AM CDT carcinoma of procedure a re in central portion of the resul ts right female breast section. ALANINE AMINOTRANSFERASE Routine 01/14/2023 11:21 Infiltrating ductal Results for this AM CDT carcinoma of procedure are i n central portion of the resul ts right female breast section. ALKALINE PHOSPHATASE Routine 01/14/2023 11:21 Infiltrating hoda kulwant Results for this AM CDT carcinoma of procedure are i n central portion of the resul ts right female breast section. ALBUMIN LEVEL Routine 01/14/2023 11:21 Infiltrating ductal Res ults for this AM CDT carcinoma of procedure are i n central portion of the resul ts right female breast section. CALCIUM LEVEL Routine 01/14/2023 11:21 Infiltrating ductal Res ults for this AM CDT carcinoma of procedure are i n central portion of the resul ts right female breast section. .GLOMERULAR FILTRATION Routine 01/14/2023 11:21 Infiltrating d uctal Results for this RATE AM CDT carcinoma of procedure are i n central portion of the resul ts right female breast section. SERUM CREATININE Routine 01/14/2023 11:21 Infiltrating ductal Results for this AM CDT carcinoma of procedure are i n central portion of the resul ts right female breast section. ELECTROLYTE PANEL Routine 01/14/2023 11:21 Infiltrating ductal Results for this AM CDT carcinoma of procedure are i n central portion of the resul ts right female breast section. BLOOD UREA NITROGEN Routine 01/14/2023 11:21 Infiltrating duct al Results for this AM CDT carcinoma of procedure are i n central portion of the resul ts right female breast section. GLUCOSE LEVEL Routine 01/14/2023 11:21 Infiltrating ductal Res ults for this AM CDT carcinoma of procedure are i n central portion of the resul ts right female breast section. COMPLETE BLOOD COUNT W/ Routine 01/14/2023 11:21 Infiltrating ductal DIFFERENTIAL AM CDT carcinoma of central portion of right female breast COMPREHENSIVE METABOLIC Routine 01/14/2023 11:21 Infiltrating ductal PANEL AM CDT carcinoma of central portion of right female breast US ARM VENOUS DOPPLER Routine 12/28/2022 2:27 Infiltrating hoda kulwant Results for this RIGHT PM CDT carcinoma of procedure are i n central portion of the resul ts right female breast section. XR FOREARM 2 VW RIGHT Routine 12/28/2022 1:56 Infiltrating hoda kulwant Results for this PM CDT carcinoma of procedure are i n central portion of the resul ts right female breast section. DIFFERENTIAL Routine 12/17/2022 7:58 Infiltrating ductal Resul ts for this AM CDT carcinoma of procedure are i n central portion of the resul ts right female breast section. .CBC Routine 12/17/2022 7:58 Infiltrating ductal Resul ts for this AM CDT carcinoma of procedure are i n central portion of the resul ts right female breast section. FRACTIONATED BILIRUBIN Routine 12/17/2022 7:58 Infiltrating du ctal Results for this AM CDT carcinoma of procedure are i n central portion of the resul ts right female breast section. TOTAL PROTEIN Routine 12/17/2022 7:58 Infiltrating ductal Resu lts for this AM CDT carcinoma of procedure are i n central portion of the resul ts right female breast section. ASPARTATE Routine 12/17/2022 7:58 Infiltrating ductal Resu lts for this AMINOTRANSFERASE AM CDT carcinoma of procedure a re in central portion of the resul ts right female breast section. ALANINE AMINOTRANSFERASE Routine 12/17/2022 7:58 Infiltrating ductal Results for this AM CDT carcinoma of procedure are i n central portion of the resul ts right female breast section. ALKALINE PHOSPHATASE Routine 12/17/2022 7:58 Infiltrating duct al Results for this AM CDT carcinoma of procedure are i n central portion of the resul ts right female breast section. ALBUMIN LEVEL Routine 12/17/2022 7:58 Infiltrating ductal Resu lts for this AM CDT carcinoma of procedure are i n central portion of the resul ts right female breast section. CALCIUM LEVEL Routine 12/17/2022 7:58 Infiltrating ductal Resu lts for this AM CDT carcinoma of procedure are i n central portion of the resul ts right female breast section. .GLOMERULAR FILTRATION Routine 12/17/2022 7:58 Infiltrating du ctal Results for this RATE AM CDT carcinoma of procedure are i n central portion of the resul ts right female breast section. SERUM CREATININE Routine 12/17/2022 7:58 Infiltrating ductal R esults for this AM CDT carcinoma of procedure are i n central portion of the resul ts right female breast section. ELECTROLYTE PANEL Routine 12/17/2022 7:58 Infiltrating ductal Results for this AM CDT carcinoma of procedure are i n central portion of the resul ts right female breast section. BLOOD UREA NITROGEN Routine 12/17/2022 7:58 Infiltrating ducta l Results for this AM CDT carcinoma of procedure are i n central portion of the resul ts right female breast section. GLUCOSE LEVEL Routine 12/17/2022 7:58 Infiltrating ductal Resu lts for this AM CDT carcinoma of procedure are i n central portion of the resul ts right female breast section. COMPLETE BLOOD COUNT W/ Routine 12/17/2022 7:58 Infiltrating d uctal DIFFERENTIAL AM CDT carcinoma of central portion of right female breast COMPREHENSIVE METABOLIC Routine 12/17/2022 7:58 Infiltrating d uctal PANEL AM CDT carcinoma of central portion of right female breast URINALYSIS MICROSCOPIC Routine 11/20/2022 11:57 R esults [...] ts right female breast section. CALCIUM LEVEL Routine 11/20/2022 10:41 Infiltrating ductal Res [...] the resul ts right female breast section. DIFFERENTIAL Routine 11/20/2022 10:41 Infiltrating ductal Resu lts for this AM CDT carcinoma of procedure are i n central portion of the resul ts right female breast section. .CBC Routine 11/20/2022 10:41 Infiltrating ductal Resu lts [...] of central portion of right female breast DIFFERENTIAL Routine 10/22/2022 9:14 Infiltrating ductal Resul ts for this AM CDT carcinoma of procedure are i n central portion of the resul ts right female breast section. .CBC Routine 10/22/2022 9:14 Infiltrating ductal Resul ts [...] ts right female breast section. 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 Special Needs [id number] pt have a rapid covi d test SEED placement and Lympho on 05/23High DosePlastic surgery time 180 mins INTRAOPERATIVE LYMPHATIC 05/24/2022 3:33 PM FIELD MECHANICAL METER TESTER Infilt rating duct carcinoma MAPPING of right female breast Special Needs [id number] pt have a rapid covi d test SEED placement and Lympho on 05/23High DosePlastic surgery time 180 mins AXILLARY LYMPHADENECTOMY 05/24/2022 3:33 PM FIELD MECHANICAL METER TESTER Infilt rating duct carcinoma of right female breast Special Needs [id number] pt have a rapid covi d test SEED placement and Lympho on 05/23High DosePlastic surgery time 180 mins TARGETED AXILLARY NODE 05/24/2022 3:33 PM FIELD MECHANICAL METER TESTER Infiltra ting duct carcinoma of DISSECTION right female breast Special Needs [id number] pt have a rapid covi d test SEED placement and Lympho on 05/23High DosePlastic surgery time 180 mins SEGMENTAL MASTECTOMY - OTHER 05/24/2022 3:33 PM FIELD MECHANICAL METER TESTER 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 COVID-19 Now 05/24/2022 11:51 Results for this (SARS-COV-2)PCR - AM FIELD MECHANICAL METER TESTER procedur e are in ASYMPTOMATIC - LT the result s section. EKG, 12-LEAD (PORTABLE) STAT 05/24/2022 FRACTIONATED BILIRUBIN Routine 05/23/2022 4:[address] Results for this PM FIELD MECHANICAL METER TESTER carcinoma of right procedure are in female breast the results section. TOTAL PROTEIN Routine 05/23/2022 4:06 Infiltrating duct Result s for this PM FIELD MECHANICAL METER TESTER carcinoma of right procedure are in female breast the results section. ASPARTATE Routine 05/23/2022 4:06 Infiltrating duct Results for this AMINOTRANSFERASE PM FIELD MECHANICAL METER TESTER carcinoma of right proce dure are in female breast the results section. ALANINE AMINOTRANSFERASE Routine 05/23/2022 4:06 Infiltrating duct Results for this PM FIELD MECHANICAL METER TESTER carcinoma of right procedure are in female breast the results section. ALKALINE PHOSPHATASE Routine 05/23/2022 4:06 Infiltrating duct Results for this PM FIELD MECHANICAL METER TESTER carcinoma of right procedure are in female breast the results section. ALBUMIN LEVEL Routine 05/23/2022 4:06 Infiltrating duct Result s for this PM FIELD MECHANICAL METER TESTER carcinoma of right procedure are in female breast the results section. CALCIUM LEVEL Routine 05/23/2022 4:06 Infiltrating duct Result s for this PM FIELD MECHANICAL METER TESTER carcinoma of right procedure are in female breast the results section. .GLOMERULAR FILTRATION Routine 05/23/2022 4:[address] Results for this RATE PM FIELD MECHANICAL METER TESTER carcinoma of right procedure are in female breast the results section. SERUM CREATININE Routine 05/23/2022 4:06 Infiltrating duct Res ults for this PM FIELD MECHANICAL METER TESTER carcinoma of right procedure are in female breast the results section. ELECTROLYTE PANEL Routine 05/23/2022 4:06 Infiltrating duct Re sults for this PM FIELD MECHANICAL METER TESTER carcinoma of right procedure are in female breast the results section. BLOOD UREA NITROGEN Routine 05/23/2022 4:06 Infiltrating duct Results for this PM FIELD MECHANICAL METER TESTER carcinoma of right procedure are in female breast the results section. GLUCOSE LEVEL Routine 05/23/2022 4:06 Infiltrating duct Result s for this PM FIELD MECHANICAL METER TESTER carcinoma of right procedure are in female breast the results section. DIFFERENTIAL Routine 05/23/2022 4:06 Infiltrating duct Results for this PM FIELD MECHANICAL METER TESTER carcinoma of right procedure are in female breast the results section. .CBC Routine 05/23/2022 4:06 Infiltrating duct Results for this PM FIELD MECHANICAL METER TESTER carcinoma of right procedure are in female breast the results section. COMPREHENSIVE METABOLIC Routine 05/23/2022 4:06 Infiltrating d uct PANEL PM FIELD MECHANICAL METER TESTER carcinoma of right female breast COMPLETE BLOOD COUNT W/ Routine 05/23/2022 4:06 Infiltrating d uct DIFFERENTIAL PM FIELD MECHANICAL METER TESTER carcinoma of right female breast MAMMO POST PROCEDURE Routine 05/23/2022 3:52 Infiltrating duct al Results for this RIGHT PM FIELD MECHANICAL METER TESTER carcinoma of procedure are i n central portion of the resul ts right female breast section. US GUIDED AXILLARY LN Routine 05/23/2022 3:21 Infiltrating hoda kulwant Results for this NON-WIRE LOCALIZATION PM FIELD MECHANICAL METER TESTER carcinoma of proced ure are in RIGHT central portion of the resul ts right female breast section. US GUIDED BREAST NON-WIRE Routine 05/23/2022 3:21 Infiltrating ductal Results for this LOCALIZATION RIGHT PM FIELD MECHANICAL METER TESTER carcinoma of procedure are in central portion of the resul ts right female breast section. NM LYMPHOSCINTIGRAPHY Routine 05/23/2022 12:40 Infiltrating du ctal Results for this BREAST PM FIELD MECHANICAL METER TESTER carcinoma of procedure are i n central portion of the resul ts right female breast section. after 05/02/2022 Results (ABNORMAL) .CBC (04/15/2023 11:12 AM CDT)Only the most recent of7 resultswithin the time period is included. [facility] Method Time Signature White Blood Cell 3.9 (L) 4.1 - 04/15/2023 [place] 10.5 K/uL 11:22 AM CDT Red Blood Cell 3.81 (L) 3.99 - 04/15/2023 [place] 5.46 M/uL 11:22 AM CDT Hemoglobin 13.4 12.2 - 04/15/2023 [place] 15.3 g/dL 11:22 AM CDT Hematocrit 40.2 36.4 - 04/15/2023 [place] 46.8 % 11:22 AM CDT Mean Cell Volume 106 (H) 82 - 99 04/15/2023 [place] fL 11:22 AM CDT Mean Cell 35.2 (H) 26.6 - 04/15/2023 [place] Hemoglobin 33.2 pg 11:22 AM CDT Mean Cell 33.3 31.1 - 04/15/2023 [place] Hemoglobin 35.2 11:22 AM CDT Concentration gm/dL RDW-SD 45.9 37.5 - 04/15/2023 [place] 49.7 fL 11:22 AM CDT Red Cell Diameter 12.4 11.6 - 04/15/2023 [place] Width 15.5 % 11:22 AM CDT Platelet 145 (L) 160 - 397 04/15/2023 [place] K/uL 11:22 AM CDT Mean Platelet 8.6 (L) 9.1 - 04/15/2023 [place] Volume 12.6 fL 11:22 AM CDT Neutrophil % 73.5 (H) 43.2 - 04/15/2023 [place] 72.7 % 11:22 AM CDT Lymphocyte % 17.3 16.8 - 04/15/2023 [place] 46.2 % 11:22 AM CDT Monocyte % 8.1 5.1 - 04/15/2023 [place] 12.5 % 11:22 AM CDT Eosinophil % 0.8 0.4 - 6.3 04/15/2023 [place] % 11:22 AM CDT Basophil % 0.3 0.2 - 1.4 04/15/2023 [place] % 11:22 AM CDT Neutrophil Abs 2.90 1.95 - 04/15/2023 [place] 7.25 K/uL 11:22 AM CDT Lymphocyte Abs 0.68 (L) 1.01 - 04/15/2023 [place] 3.24 K/uL 11:22 AM CDT Monocyte Abs 0.32 0.24 - 04/15/2023 [place] 0.85 K/uL 11:22 AM CDT Eosinophil Abs 0.03 0.02 - 04/15/2023 [place] 0.50 K/uL 11:22 AM CDT Basophil Abs 0.01 (L) 0.02 - 04/15/2023 [place] 0.09 K/uL 11:22 AM CDT Specimen Anatomical Collection Method Collection Time Receive d Time (Source) Location / / Volume Laterality Blood Port / Unknown 04/15/2023 11:12 3 AM CDT 11:16 AM CDT Danisha Arias MD LAB BLOOD ORDERABLES Performing Organization Address City/State/ZIP Code Phon e Number [facility] [place] [address] [place] [address] [facility], [address] (ABNORMAL) Comprehensive Metabolic Panel (04/15/2023 11:12 AM CDT) athologist Signature Bilirubin Total 0.4 <=1.2 mg/dL 04/15/2023 [place] 11:44 AM CDT Comment: Indocyanine Green (ICG) may cause falsel y elevated bilirubin results. Total and direct bilirubin must not be measured from samples containing indocyanine green. False elevation of total bilirubin can be seen in patients with IgG concentration s above 28 g/L. This result was previously suppressed fr om the chart. Bilirubin Direct <0.2 <=0.3 mg/dL 04/15/2023 11:44 AM C DT [place] Comment: Indocyanine Green (ICG) may cause falsel y elevated bilirubin results. Total and direct bilirubin must not be measured from samples containing indocyanine green. This result was previously suppressed fr om the chart. Bilirubin Indirect 04/15/2023 11:44 AM C DT [place] Comment: Unable to calculate Indirect Bi lirubin result due to some parameters are outside reportable range eGFR 54 (L) >=60 mL/min/1.73 sq. m 04/15/2023 11:44 AM CDT [place] Comment: The eGFRcr is calculated with the [...] as the abnormalities of kidney structure or fu nction, present for more than 3 months, with implications for health. CKD should be classified by cause, GFR category, and albuminuria category. KDIGO guidelines provide the following GFR categories. Stage / Description / GFR mL/min/1.73 m2 : G1* / Normal or high / >= 90 G2* / Mildly decreased / 60-89 G3a / Mildly to moderately decreased / 4 5-59 G3b / Moderately to severely decreased / 30-44 G4 / Severely decreased / 15-29 G5 / Kidney failure / <15 *In the absence of evidence of kidney da mage, neither G1 nor G2 fulfill criteria for CKD. Tot Protein 7.2 6.4 - 8.3 gm/dL 04/15/2023 11:44 AM CD T [place] Comment: This result was previously supp ressed from the chart. Calcium Level Total 9.3 8.2 - 10.2 mg/dL 04/15/2023 11 :44 AM CDT [place] Comment: This result was previously supp ressed from the chart. Alkaline Phosphatase 59 35 - 104 U/L 04/15/2023 11:44 AM CDT [place] Comment: This result was previously supp ressed from the chart. Albumin Level 4.0 3.5 - 5.2 gm/dL 04/15/2023 11:44 AM CDT [place] Comment: This result was previously supp ressed from the chart. AST 16 <=32 U/L 04/15/2023 11:44 AM CDT [place] Comment: This result was previously supp ressed from the chart. ALT 13 <=33 U/L 04/15/2023 11:44 AM CDT [place] Comment: This result was previously supp ressed from the chart. Sodium Level 138 136 - 145 mmol/L 04/15/2023 11:44 AM CDT [place] Comment: This result was previously supp ressed from the chart. Potassium Level 3.7 3.4 - 4.5 mmol/L 04/15/2023 11:44 AM CDT [place] Comment: This result was previously supp ressed from the chart. Chloride 104 98 - 107 mmol/L 04/15/2023 11:44 AM CDT [place] Comment: This result was previously supp ressed from the chart. CO2 26 22 - 29 mmol/L 04/15/2023 11:44 AM CDT [place] Comment: This result was previously supp ressed from the chart. Anion Gap 8 4 - 14 mmol/L 04/15/2023 11:44 AM CDT [facility] Comment: This result was previously supp ressed from the chart. Creatinine 1.12 (H) 0.51 - 0.95 mg/dL 04/15/2023 11:44 AM C DT [place] [facility] Comment: This result was previously supp ressed from the chart. BUN 14 6 - 23 mg/dL 04/15/2023 11:44 AM CDT [place] [facility] Comment: This result was previously supp ressed from the chart. Glucose Level 87 70 - 99 mg/dL 04/15/2023 11:44 AM CD T [place] [facility] Comment: Effective 01/18/16, the glucose reference intervals have been updated based on [place] [employer] guidelines (Standards of Medical Care in Diabetes 2016. Diabetes Care 2016; 39: S13-S22). Fasting blood glucose: Normal: 70-99 mg/dL Impaired fasting glucose (increased risk for diabetes or pre-diabetes): 100-125 mg/dL Diabetes mellitus: >/=126 mg/dL Random blood glucose: Normal: 70-199 mg/dL Note: Random glucose >100 mg/dL is assoc iated with increased risk for diabetes. This result was previously suppressed fr om the chart. Specimen Anatomical Collection Method Collection Time Receive d Time (Source) Location / / Volume Laterality Blood Port / Unknown 04/15/2023 11:12 3 AM CDT 11:16 AM CDT Danisha Arias MD LAB BLOOD ORDERABLES Performing Organization Address City/State/Z[place] [address], [address] (ABNORMAL) .Serum Creatinine (03/04/2023 11:11 AM CDT)Only the most recent of6 resultswithin the time period is included. athologist Signature Creatinine 1.18 (H) 0.51 - 0.95 [place] mg/dL Comment: Testing performed at [facility], [address] [place] [address], [place] [address] Specimen Anatomical Collection Method Collection Time Receive d Time (Source) Location / / Volume Laterality Blood 03/04/2023 11:11 03/04/2023 AM CDT 11:32 AM CDT Narrative [place] - 03/04/2023 12:03 PM CDT Nonfasting labs Risa [facility] LAB BLOOD ORDERABLES Performing Organization Address City/State/[place] [address], [facility] [address] (ABNORMAL) Glomerular Filtration Rate (03/04/2023 11:11 AM CDT)Only the most recent of6 resultswithin the time period is included. P athologist Signature eGFR 51 (L) >=60 [place] mL/min/1.73 sq. m Comment: The eGFRcr is [...] fulfill criteria for CKD. [facility] at [facility], [address] [place] [address] Specimen Anatomical Collection Method Collection Time Receive d Time (Source) Location / / Volume Laterality Blood 03/04/2023 11:11 03/04/2023 AM CDT 11:32 AM CDT Narrative [place] - 03/04/2023 12:03 PM CDT Nonfasting labs Risa RENNER LAB BLOOD ORDERABLES Performing Organization Address City/State/ZIP [place] [address], [facility] 200 Fractionated Bilirubin (03/04/2023 11:11 AM CDT)Only the most recent of6 results within the time period is included. [facility] Bili Total 0.3 <=1.2 mg/dL [place] Comment: Indocyanine Green (ICG) may cause falsel y elevated bilirubin results. Total and direct bilirubin must not be measured from samples containing indocyanine green. False elevation of total bilirubin can b e seen in patients with IgG concentrations above 28 g/L. Testing performed at [facility], [address] [place] [id number] Bili Direct <0.2 <=0.3 mg/dL [place] Comment: Indocyanine Green (ICG) may cause falsel y elevated bilirubin results. Total and direct bilirubin must not be measured from samples containing indocyanine green. Testing performed at [facility], [address] [place], [place] [address] Bili Indirect See Note 0.0 - 0.9 mg/dL [place] Comment: Unable to calculate Indirect Bilirubin r esult due to some parameters are outside reportable range Testing performed at [facility], [address] [place] [address] Specimen Anatomical Collection Method Collection Time Receive d Time (Source) Location / / Volume Laterality Blood 03/04/2023 11:11 03/04/2023 AM CDT 11:32 AM CDT Narrative [place] - 03/04/2023 12:03 PM CDT Nonfasting labs Risa RENNER LAB BLOOD ORDERABLES Performing Organization Address City/State/ZIP [place] [address], [facility] 200 Differential (03/04/2023 11:11 AM CDT)Only the most recent of6 resultswithin the time period is included. [facility] Neutrophil % 59.0 43.2 - 72.7 [place] % Comment: All components of the Different ial performed at [facility], [address] [place] [address] Lymphocyte % 28.1 16.8 - 46.2 % [place] Comment: As part of Differential, testin g performed at [facility], [address] [place] [address] Monocyte % 11.4 5.1 - 12.5 % [place] Comment: As part of Differential, testin g performed at [facility], [address] [place] [address] Eosinophil % 1.0 0.4 - 6.3 % [place] [facility] Comment: As part of Differential, testin g performed at [facility], [address] [place] [address] Basophil % 0.5 0.2 - 1.4 % [place] [facility] Comment: As part of Differential, testin g performed at [facility], [address] [place] [address] Neutrophil Abs 2.39 1.95 - 7.25 K/uL [place] Comment: As part of Differential, testin g performed at [facility], [address] [place] [address] Lymphocyte Abs 1.14 1.01 - 3.24 K/uL [place] Comment: As part of Differential, testin g performed at [facility], [address] [place] [address] Monocyte Abs 0.46 0.24 - 0.85 K/uL [place] [facility] Comment: As part of Differential, testin g performed at [facility], [address] [place] [address] Eosinophil Abs 0.04 0.02 - 0.50 K/uL [place] Comment: As part of Differential, testin g performed at [facility], [address] [place] [address] Basophil Abs 0.02 0.02 - 0.09 K/uL [place] [facility] Comment: As part of Differential, testin g performed at [facility], [address] [place] [address] Specimen Anatomical Collection Method Collection Time Receive d Time (Source) Location / / Volume Laterality Blood 03/04/2023 11:11 03/04/2023 AM CDT 11:32 AM CDT Narrative [place] - 03/04/2023 11:40 AM CDT Nonfasting labs Risa Trevino PA LAB BLOOD ORDERABLES Performing Organization Address City/State/ZIP [place] [address], [facility] 200 BUN (03/04/2023 11:11 AM CDT)Only the most recent of6 resultswithin the time period is included. athologist Signature BUN 15 6 - 23 mg/dL [place] Comment: Testing performed at [facility], [address] [place] [address] Specimen Anatomical Collection Method Collection Time Receive d Time (Source) Location / / Volume Laterality Blood 03/04/2023 11:11 03/04/2023 AM CDT 11:32 AM CDT Narrative [place] - 03/04/2023 12:03 PM CDT Nonfasting labs Risa Trevino PA LAB BLOOD ORDERABLES Performing Organization Address City/[facility] [place] [address] 200 ALT (03/04/2023 11:11 AM CDT)Only the most recent of6 resultswithin the time period is included. athologist Signature ALT 6 <=33 U/L [place] Comment: Testing performed at [facility], [address] [place] [address] Specimen Anatomical Collection Method Collection Time Receive d Time (Source) Location / / Volume Laterality Blood 03/04/2023 11:11 03/04/2023 AM CDT 11:32 AM CDT Narrative [place] - 03/04/2023 12:03 PM CDT Nonfasting labs Risa Trevino PA LAB BLOOD ORDERABLES Performing Organization Address City/[facility]/ZIP [place] [address], [facility] 200 Aspartate Aminotransferase (03/04/2023 11:11 AM CDT)Only the most recent of6 resultswithin the time period is included. P athologist Signature AST 16 <=32 U/L [place] Comment: Testing performed at [facility], [address] [place] [address] Specimen Anatomical Collection Method Collection Time Receive d Time (Source) Location / / Volume Laterality Blood 03/04/2023 11:11 03/04/2023 AM CDT 11:32 AM CDT Narrative [place] - 03/04/2023 12:03 PM CDT Nonfasting labs Risa RENNER LAB BLOOD ORDERABLES Performing Organization Address City/[facility] [place] [address], [facility] 200 Total Protein (03/04/2023 11:11 AM CDT)Only the most recent of6 resultswithin the time period is included. athologist Signature Total Protein 7.3 6.4 - 8.3 [place] g/dL Comment: Testing performed at [facility], [address] [place] [address] Specimen Anatomical Collection Method Collection Time Receive d Time (Source) Location / / Volume Laterality Blood 03/04/2023 11:11 03/04/2023 AM CDT 11:32 AM CDT Narrative [place] - 03/04/2023 12:03 PM CDT Nonfasting labs Risa RENNER LAB BLOOD ORDERABLES Performing Organization Address City/[facility] [place] [address], [facility] 200 Alkaline Phosphatase (03/04/2023 11:11 AM CDT)Only the most recent of6 results within the time period is included. athologist Signature Alk Phos 63 35 - 104 U/L [place] Comment: Testing performed at [facility], [address] [place] [address] Specimen Anatomical Collection Method Collection Time Receive d Time (Source) Location / / Volume Laterality Blood 03/04/2023 11:11 03/04/2023 AM CDT 11:32 AM CDT Narrative [place] - 03/04/2023 12:03 PM CDT Nonfasting labs Risa RENNER LAB BLOOD ORDERABLES Performing Organization Address City/State/Z[place] [address] 200 Glucose Level (03/04/2023 11:11 AM CDT)Only the most recent of6 resultswithin the time period is included. athologist Signature Glucose Level 94 70 - 99 [place] mg/dL Comment: Effective 01/18/16, the glucose reference intervals have been updated based on [place] [employer] guidelines (Standards of Medical Care in Diabetes 2016. Diabetes Care 2016; 39: S13-S22). Fasting blood glucose: Normal: 70-99 mg/dL Impaired fasting glucose (increased risk for diabetes or pre-diabetes): 100- 125 mg/dL Diabetes mellitus: >/=126 mg/dL Random blood glucose: Normal: 70-199 mg/dL Note: Random glucose >100 mg/dL is assoc iated with increased risk for diabetes Testing performed at [facility], [address] [place], [place] [address] Specimen Anatomical Collection Method Collection Time Receive d Time (Source) Location / / Volume Laterality Blood 03/04/2023 11:11 03/04/2023 AM CDT 11:32 AM CDT Narrative [place] - 03/04/2023 12:03 PM CDT Nonfasting labs Risa RENNER LAB BLOOD ORDERABLES Performing Organization Address City/State/ZIP [place] [address] 200 Calcium Level (03/04/2023 11:11 AM CDT)Only the most recent of6 resultswithin the time period is included. athologist Signature Calcium Lvl 9.5 8.4 - 10.2 [place] [facility] mg/dL Comment: [facility], [address] [place] [address] Specimen Anatomical Collection Method Collection Time Receive d Time (Source) Location / / Volume Laterality Blood 03/04/2023 11:11 03/04/2023 AM CDT 11:32 AM CDT Narrative [place] - 03/04/2023 12:03 PM CDT Nonfasting labs Risa Trevino PA LAB BLOOD ORDERABLES Performing Organization Address City/[facility]/ZIP [place] [address] 200 Albumin Level (03/04/2023 11:11 AM CDT)Only the most recent of6 resultswithin the time period is included. athologist Signature Albumin Lvl 4.2 3.5 - 5.2 [place] gm/dL Comment: Testing performed at [facility], [address] [place] [address] Specimen Anatomical Collection Method Collection Time Receive d Time (Source) Location / / Volume Laterality Blood 03/04/2023 11:11 03/04/2023 AM CDT 11:32 AM CDT Narrative [place] - 03/04/2023 12:03 PM CDT Nonfasting labs Risa Trevino PA LAB BLOOD ORDERABLES Performing Organization Address City/[facility]/ZIP [place] [address] 200 Electrolyte Panel (03/04/2023 11:11 AM CDT)Only the most recent of6 results within the time period is included. athologist Signature Sodium Lvl 136 136 - 145 [place] mEq/L Comment: Testing performed at [facility], [address] [place] [address] Potassium Lvl 4.1 3.5 - 5.1 mEq/L [place] Comment: Testing performed at [facility], [address] [place] [address] Chloride 103 98 - 107 mEq/L [place] Comment: Testing performed at [facility], [address] [place] [address] CO2 23 22 - 29 mEq/L [place] Comment: Testing performed at [facility], [address] [place] [address] Anion Gap 10 4 - 14 mEq/L [place] Comment: Testing performed at [facility], [address] [facility] [address], [place] [address] Specimen Anatomical Collection Method Collection Time Receive d Time (Source) Location / / Volume Laterality Blood 03/04/2023 11:11 03/04/2023 AM CDT 11:32 AM CDT Narrative [place] - 03/04/2023 12:03 PM CDT Nonfasting labs Risa RENNER LAB BLOOD ORDERABLES Performing Organization Address City/State/Z[place] [address] [place] [address], [address] Mammography Digital Diagnostic Bilateral with Jasson (01/29/2023 11:14 AM CDT) Anatomical Region Laterality Modality Breast Bilateral Mammography Specimen (Source) Anatomical Collection Method Collection Time Re ceived Time Location / / Volume Laterality 01/29/2023 11:31 AM CDT Impressions 01/29/2023 11:31 AM CDT There is no mammographic evidence of malignancy. Recommend continued clinical management of patient's right breast sym ptoms to include correlation with physical exam to determine if further ev aluation with breast ultrasound is clinically warranted. Annual mammogram i n 1 year is also recommended. BI-RADS Category 2: Benign Finding(s) These results and recommendations were p ersonally discussed with the patient at the time of the examination. The importa nce of clinical follow up was stressed. Narrative 01/29/2023 11:31 AM CDT CLINICAL INDICATION: Patient is a 67 year old female and is s een for history of right breast cancer status post breast conservation therapy. Right breast pain. MAMMO DIGITAL DIAGNOSTIC BILATERAL W JUANI O Digital Mammogram evaluated with Compute r Aided Detection (CAD). COMPARISON: Prior imaging studies performed at an [facility] location on 08/07/2019, 08/23/2020 and 09/06/2021, and at [facility] on 10/26/2021 and 04/27/2022 were reviewed. FINDINGS: There are scattered areas of fibroglandu lar density. There are postoperative changes in the r ight breast and right axilla along with diffuse trabecular thickening and skin t hickening. These findings are most consistent with post-treatment change. No dominant mass, distortion, or suspicious calcifications are identified . In the left breast, no dominant mass, di stortion, or suspicious calcifications are identified. Tomosynthesis performed in CC and MLO pr ojections. Procedure Note Sunshine Mcfadden MD - 01/29/2023 CLINICAL INDICATION: Patient is a 67 year old female and is s een for history of right breast cancer status post breast conservation therapy. Right breast pain. MAMMO DIGITAL DIAGNOSTIC BILATERAL W JUANI O Digital Mammogram evaluated with Compute r Aided Detection (CAD). COMPARISON: Prior imaging studies performed at an [facility] location on 08/07/2019, 08/23/2020 and 09/06/2021, and at [facility] on 10/26/2021 and 04/27/2022 were reviewed. FINDINGS: There are scattered areas of fibroglandu lar density. There are postoperative changes in the r ight breast and right axilla along with diffuse trabecular thickening and skin t hickening. These findings are most consistent with post-treatment change. N o dominant mass, distortion, or suspicious calcifications are identified . In the left breast, no dominant mass, di stortion, or suspicious calcifications are identified. Tomosynthesis performed in CC and MLO pr ojections. IMPRESSION: There is no mammographic evidence of mal ignancy. Recommend continued clinical management of patient's right breast sym ptoms to include correlation with physical exam to determine if further ev aluation with breast ultrasound is clinically warranted. Annual mammogram i n 1 year is also recommended. BI-RADS Category 2: Benign Finding(s) These results and recommendations were p ersonally discussed with the patient at the time of the examination. The importa nce of clinical follow up was stressed. Chelsie RENNER IMEfren MAMMOGRAPHY ORDERABLES US Arm Venous Doppler Right (12/28/2022 2:27 PM CDT) Anatomical Region Laterality Modality Arm, Extremity Ultrasound Specimen (Source) Anatomical Collection Method Collection Time Re ceived Time Location / / Volume Laterality 12/28/2022 3:02 PM CDT Impressions 12/28/2022 3:03 PM CDT Negative for deep venous thrombosis righ t upper extremity . Narrative 12/28/2022 3:03 PM CDT Examination: US ARM VENOUS DOPPLER RIGHT , 12/28/2022 2:27 PM Clinical History: Infiltrating ductal ca rcinoma of central portion of right female breast Indication: Pain Comparison: None available. Technique: Grayscale and color/spectral Doppler ultrasound of the right upper extremity veins was performed. Findings: The right internal jugular, subclavian, axillary, brachial, cephalic, and basilic veins show phasic color flow and are patent. Procedure Note Miko Parrish MD - 12/28/2022 Examination: US ARM VENOUS DOPPLER RIGHT , 12/28/2022 2:27 PM Clinical History: Infiltrating ductal ca rcinoma of central portion of right female breast Indication: Pain Comparison: None available. Technique: Grayscale and color/spectral Doppler ultrasound of the right upper extremity veins was performed. Findings: The right internal jugular, subclavian, axillary, brachial, cephalic, and basilic veins show phasic color flow and are patent. IMPRESSION: Negative for deep venous thrombosis righ t upper extremity . Risa RENNER IMEfren US ORDERABLES XR Forearm 2 Views Right (12/28/2022 1:56 PM CDT) Anatomical Region Laterality Modality Forearm, Extremity Radio Fluoroscopy Specimen (Source) Anatomical Collection Method Collection Time Re ceived Time Location / / Volume Laterality 12/28/2022 2:04 PM CDT Impressions 12/28/2022 2:08 PM CDT No acute fracture or bone metastasis. Narrative 12/28/2022 2:08 PM CDT FULL RESULT: Examination: XR Right Forearm, 2 Views, 12/28/2022 1:56 PM. Clinical History: Breast cancer. Indication: Right forearm pain. Comparison: None. Technique: AP and lateral right forearm, 12/28/2022. Findings: Osteoarthritis with some joint space deja rowing and eburnation is noted at the 1st carpometacarpal joint. Old traumatic changes with a small nonun ited fracture fragment are seen in this region. No other bone, joint or soft tissue abno rmality is present. Procedure Note Rene Arce MD - 12/28/2022Formatti ng of this note might be different from the original. FULL RESULT: Examination: XR Right Forearm, 2 Views, 12/28/2022 1:56 PM. Clinical History: Breast cancer. Indication: Right forearm pain. Comparison: None. Technique: AP and lateral right forearm, 12/28/2022. Findings: Osteoarthritis with some joint space deja rowing and eburnation is noted at the 1st carpometacarpal joint. Old traumatic changes with a small nonun ited fracture fragment are seen in this region. No other bone, joint or soft tissue abno rmality is present. IMPRESSION: No acute fracture or bone metastasis. Risa RENNER IMG DIAGNOSTIC IMAGING ORDER BUZZ (ABNORMAL) Urinalysis Microscopic Exam (11/20/2022 11:57 AM CDT) athologist Signature UA WBC 3-4 (A) 0 - 2 /HPF [place] [facility] Comment: Some reporting parameters within the Uri nalysis test have changed due to the implementation of new instrumentation in the [place], allowing greater sensitivity of measurement. Urinalysis results rep orted by the [facility] using existing instrumentation, as well as Urinalysis t esting performed manually or by backup methodology at the [place] will remain relatively unchanged. New reporting parameters and units will not be reported for all campuses. All components of UA Microscopic Exam performed at [facility], [address] [place] [address] UA RBC 0-2 0 - 2 /HPF [place] Comment: As part of the UA Microscopic E xam performed at [facility], [address] [place] [address] UA Mucous TRACE Not Seen-Trace /HPF [place] [facility] Comment: As part of the UA Microscopic E xam performed at [facility], [address] [place] [address] UA Bacteria OCC NOT SEEN /HPF [place] [facility] Comment: As part of the UA Microscopic E xam performed at [facility], [address] [place] [address] UA Squam Epi 1+ (A) None-Occasional /HPF [place] [facility] Comment: As part of the UA Microscopic E xam performed at [facility], [address] [place] [address] UA Hyal Cast 0-2 0 - 2 /LPF [place] Comment: As part of the UA Microscopic E xam performed at [facility], [address] [place] [address] Specimen Anatomical Collection Method Collection Time Receive d Time (Source) Location / / Volume Laterality Urine 11/20/2022 11:57 11/20/2022 AM CDT 12:06 PM CDT Risa RENNER LAB BLOOD ORDERABLES Performing Organization Address City/State/ZIP Code Phon e Number [address], [address] (ABNORMAL) Urinalysis w/Microscopic if Indicated (11/20/2022 11:57 AM CDT) athologist Signature UA Color Yellow Straw-Yellow [place] Comment: All components of UA Macroscopi c performed at [facility], [address] [place] [address] UA Appear Clear Clear [place] Comment: As part of the UA Macroscopic p erformed at [facility], [address] [place] [address] UA Glucose NEG NEG mg/dL [place] Comment: As part of the UA Macroscopic p erformed at [facility], [address] [place] [address] UA Bili NEG NEG [place] Comment: As part of the UA Macroscopic p erformed at [facility], [address] [place] [address] UA Ketones NEG NEG mg/dL [place] Comment: As part of UA Macroscopic or as an individual orderable testing performed at [facility], [address] [place] [address] UA Spec Grav 1.010 1.003 - 1.035 [place] Comment: As part of UA Macroscopic or as an individual orderable testing performed at [facility], [address] [place] [address] UA Blood NEG NEG [place] Comment: As part of the UA Macroscopic p erformed at [facility], [address] [place] [address] UA pH 6.5 5.0 - 9.0 [place] Comment: As part of UA Macroscopic or as an individual orderable testing performed at [facility], [address] [place] [address] UA Protein NEG NEG mg/dL [place] Comment: As part of the UA Macroscopic p erformed at [facility], [address] [place], [place] [address] UA Urobilinogen NEG NEG [place] Comment: As part of the UA Macroscopic p erformed at [facility], [address] [place], [place] [address] UA Nitrite NEG NEG [place] Comment: As part of the UA Macroscopic p erformed at [facility], [address] [place], [place] [address] UA Leuk Est Trace (A) NEG [place] Comment: As part of the UA Macroscopic p erformed at [facility], [address] [place] [address] Specimen Anatomical Collection Method Collection Time Receive d Time (Source) Location / / Volume Laterality Urine 11/20/2022 11:57 11/20/2022 AM CDT 12:06 PM CDT Risa RENNER URINE ORDERABLES Performing Organization Address City/State/ZIP Code Phon [place] [facility] [place] [place] [address], [address] (ABNORMAL) Culture, Urine (11/20/2022 11:57 AM CDT) [facility] gist Method Time Signature Final Report <10,000 cfu/ml Normal site daria present. [place] Generally of low significance. [place] Correlate with clinical data and culture history. [facility]ER [place] (A) Specimen Anatomical Collection Method Collection Time Receive d Time (Source) Location / / Volume Laterality Urine, Clean 11/20/2022 11:57 11/20/2022 3:35 Catch AM CDT PM CDT Comment: written on the specimen label ( wipe not used by pt) Risa RENNER MICROBIOLOGY - GENERAL ORDER BUZZ Performing Organization Address City/State/ZIP Code Phon e Number [facility] Unless otherwise noted, [place] [address] [place] all lab tests performed by: Division of Pathology and Laboratory Medicine [address] [place] [address] Pathology Surgical Interpretation (05/24/2022 5:00 PM FIELD MECHANICAL METER TESTER) Component Value Ref Test Analysis Performed Pathologis t Range Method Time At Signature Submitted Infiltrating duct 06/04/2022 [facility] Clinical History carcinoma of 10:48 AM right female FIELD MECHANICAL METER TESTER breast [C50.911] Diagnosis A: Right axillary sentinel lymph node #1: 06/04/2022 [facility] Electronically METASTATIC CARCINOMA IN ONE OF TWO LYMPH NODES. 10:48 AM signed by Mary Beth, LARGEST TUMOR DEPOSIT SIZE: 7 MM. FIELD MECHANICAL METER TESTER MD Abraham on EXTRACAPSULAR EXTENSION: Not identified. 06/04/2022 at [...] new margin. G: Left chest wall port-a-cath: alliance manager, gross description only. H: Right axillary contents [...] Residual Tumor Area: 1 % (invasive carcinoma) FIELD MECHANICAL METER TESTER Percent of Residual Cancer that is in-situ: NA Total Number of Lymph Nodes with Residual Metastatic Carcino ma: 2 Size of Largest Metastasis: 7 mm Synoptic INVASIVE CARCINOMA OF THE BREAST: Resection 06/04/2022 [facility] Checklist INVASIVE CARCINOMA OF THE BREAST: COMPLETE EXCISION - All Specimens 10:48 AM 8th Edition - Protocol posted: 09/13/2021 FIELD MECHANICAL METER TESTER SPECIMEN Procedure: Excision (less than total mastectomy) Specimen Laterality: Right TUMOR Histologic Type: Invasive carcinoma of no special t ype (ductal) Histologic Grade (Aung Histologic Score): Glandular (Acinar) / Tubular Differentiation: [...] Examined (sentinel and non-sentinel): 18 Number of Valatie Nodes Examined: 6 PATHOLOGIC STAGE CLASSIFICATION (pTNM, AJCC 8th Edition) Reporting of pT, pN, and (when applicable) pM categories is based on information available to the pathologist at the time the report is issued. As per the AJCC (Chapter 1, 8th Ed.) it is the [facility] responsibility to establish the final pathologic stage based upon all pertinent information, including but potentially not limited to this pathology report. TNM Descriptors: y (post-treatment) pT Category: pT2 pN Category: pN1a Gross A: 06/04/2022 [facility] Description Valatie lymph node, axillar y, right axillary sln#1- hot and blue invivo 124, exvivo 116 - contained clipped node; localizer type: vane-rounder and backer; specimen radiograph: yes - or#2: A 5.0 x 3.5 x 1.3 cm aggre 10:48 AM gate of fibroadipose tissue. One biopsy clip and one VANE rounder and backer is identified on radiographic picture and grossly. Dissection reveals 2 possible lymph nodes (2.5 x 1.5 x 1.0 cm and 1.5 x 0.5 x 0.5 cm). FIELD MECHANICAL METER TESTER Sectioning of the 2.5 cm pos sible lymph node reveals the Vane rounder and backer and biopsy clip. The possible lymph node are serially sectioned, submitted entirely for frozen diagnosis, and resubmitted for permanent processing as follows: SECTION CODE: A1-A3, the cl ipped possible lymph node, frozen remnant resubmitted; A4, one possible lymph node, frozen remnant resubmitted. YS B: Valatie lymph node, axillar y, right axillary sln#2 [...] frozen section and permanent processing. PB C: Val[place] lymph node, axillar y, right axillary sln#3 - hot and blue - invivo 60, exvivo 131 - or#2: A 2.5 x 1.5 x 0.8 cm portion of fibroadipose tissue. Dissection reveals a 1.0 cm in greatest dimension possible lymph node. The pos sible lymph node is serially sectioned and submitted entirely in C1. Time in formalin: 5:51 PM YS D: Valatie lymph node, axillar y, right axillary sln#4 [...] right, right segment al mastectomy; localizer type: vane-rounder and backer; short stitch superior, long stitch lateral, ink [...] A biopsy clip and a Vane are ident ified in the specimen. The specimen is sampled per radiograp h. INK CODE: anterior-yellow, posterior-black, superior-blue, inferior-ink, medial [...] surfaces. No distinct lesion is noted. A players club representative section is submitted in cassettes I1. Time in formalin is 20:00 on 05/24/2022. MF Intraoperative A: 06/04/2022 [facility] Evaluation Valatie lymph node, axillar y, right axillary sln#1- hot and blue invivo 124, exvivo 116 - contained clipped node; localizer type: vane-rounder and backer; specimen radiograph: yes - or#2: 10:48 AM Metastatic carcinoma. LH/FLZ FIELD MECHANICAL METER TESTER B: Val[place] lymph node, axillar y, right axillary sln#2 - hot and blue - invivo 124- exvivo 89 - or#2: Metastatic carcinoma. LH/FLZ C: Val[place] lymph node, axillar y, right axillary sln#3 - hot and blue - invivo 60, exvivo 131 - or#2: Defer to permanent. LH/FLZ D: Valatie lymph node, axillar y, right axillary sln#4 - hot and blue - invivo 33, exvivo 71 - or#2: Defer to permanent. LH/FLZ E: Breast, right, right segment al mastectomy; localizer type: vane-rounder and backer; short stitch superior, long stitch lateral, ink richter posterior; specrimen radiograph: yes: 1 clip and 1 VANE. Spicules from the tumor extend to the posterior margin. LH/FLZ Biomarker Primary tumor block: E7 06/04/2022 [facility] Block(s) Normal Block: E1 10:48 AM FIELD MECHANICAL METER TESTER Disclaimer "Some tests 06/04/2022 [facility] reported here may 10:48 AM have been FIELD MECHANICAL METER TESTER developed and performance characteristics determined by [facility] Pathology and Laboratory Medicine. These tests have not been specifically cleared or approved by the U.S. Food and Drug Administration. If applicable, controls were reviewed and showed appropriate reactivity." Specimen (Source) Anatomical Collection Method Collection Time Re ceived Time Location / / Volume Laterality Tissue specimen 05/24/2022 5:00 2 5:16 (specimen) PM FIELD MECHANICAL METER TESTER PM FIELD MECHANICAL METER TESTER (Valatie Lymph Node, Axillary) Tissue specimen 05/24/2022 5:12 2 5:16 (specimen) PM FIELD MECHANICAL METER TESTER PM FIELD MECHANICAL METER TESTER (Valatie Lymph Node, Axillary) Tissue specimen 05/24/2022 5:19 2 5:27 (specimen) PM FIELD MECHANICAL METER TESTER PM FIELD MECHANICAL METER TESTER (Valatie Lymph Node, Axillary) Tissue specimen 05/24/2022 5:21 2 5:27 (specimen) PM FIELD MECHANICAL METER TESTER PM FIELD MECHANICAL METER TESTER (Valatie Lymph Node, Axillary) Tissue specimen 05/24/2022 5:23 2 5:42 (specimen) PM FIELD MECHANICAL METER TESTER PM FIELD MECHANICAL METER TESTER (Breast, Right) Tissue specimen 05/24/2022 5:40 2 7:29 (specimen) PM FIELD MECHANICAL METER TESTER AM FIELD MECHANICAL METER TESTER (Breast, Right, Additional Margin) Tissue specimen 05/24/2022 5:53 2 7:29 (specimen) (Chest PM FIELD MECHANICAL METER TESTER AM FIELD MECHANICAL METER TESTER Wall, Left) Tissue specimen 05/24/2022 5:58 2 7:29 (specimen) PM FIELD MECHANICAL METER TESTER AM FIELD MECHANICAL METER TESTER (Axillary Contents, Right) Tissue specimen 05/24/2022 6:59 2 7:40 (specimen) PM FIELD MECHANICAL METER TESTER AM FIELD MECHANICAL METER TESTER (Breast, Right, Skin) Madeleine Plaza MD LAB PATHOLOGY ORDERABLES Performing Organization Address City/State/ZIP Code Phon e Number [facility] [place] [address], [place] [address] Breast Specimen Radiograph (Right) (05/24/2022 12:00 PM FIELD MECHANICAL METER TESTER) Anatomical Region Laterality Modality Breast N/A Digital Radiography Specimen (Source) Anatomical Collection Method Collection Time Re ceived Time Location / / Volume Laterality 05/24/2022 6:19 PM FIELD MECHANICAL METER TESTER Impressions 05/24/2022 6:19 PM FIELD MECHANICAL METER TESTER As discussed above. Radiography confirms removal of 2 Vane S cout localizers. Narrative 05/24/2022 6:19 PM FIELD MECHANICAL METER TESTER Examination: Specimen Radiograph Right 05/24/2022. Indication: Breast Cancer Technique: Right breast and axillary spe cimens submitted for review. There is a total of 3 radiographic images. The en b loc specimen is imaged on the second radiographic image. Findings: There is a mass with calcifica tions, a biopsy clip and a Vane Water Resource Manager reflector in the breast specimen. There is a Vane Water Resource Manager reflector and biopsy clip in the axillary [...] tions, a biopsy clip and a Vane Water Resource Manager reflector in the breast specimen. There is a Vane Water Resource Manager reflector and biopsy clip in the axillary specimen. Findings were electronically annotated and discussed with the pathologist Dr. Mary Beth flower the time of this dictation. IMPRESSION: As discussed above. Radiography confirms removal of 2 Vane S cout localizers. Chelsie RENNER IMEfren MAMMOGRAPHY ORDERABLES COVID-19 (SARS-CoV-2)Asymptomatic-LT (05/24/2022 11:51 AM FIELD MECHANICAL METER TESTER) [facility] Method Time Signature COVID19 Not Detected Not Detected [place] (SARS-CoV-2) [facility] COVID19 SARS Pre-OR [place] Indication Procedure [facility] Covid 19 See Note [place] Comment [facility] Comment: The carol SARS-CoV-2 nucleic acid [...] fact sheet for patients provided by the bulb planter ([employer]) can be reviewed at: https://www.fda.gov/media/215400/naliniloa dMazin A fact sheet for Health Care providers is provided by the bulb planter ([employer]) and can be reviewed at: https://www.fda.gov/media/432812/download Results must be interpreted within the c [...] This assay has been authorized by the [facility] for use only under Emergency Use Authorization (EUA) in laboratories that have been CLIA-certified to perform moderate-complexity and high-complexity tests. The Microbiology Laboratory at [facility] [place], CLIA Accreditation #[id number] [place] CAP Accreditation #[id number], verified the performance characteristics of this assay. Internal controls are used to monitor all stages of the test process. Specimen (Source) Anatomical Collection Method Collection Time Re ceived Time Location / / Volume Laterality Nasopharyngeal Swab 05/24/2022 11:51 12/0 06/2021 AM FIELD MECHANICAL METER TESTER 12:30 PM FIELD MECHANICAL METER TESTER Madeleine Plaza MD MICROBIOLOGY - GENERAL O RDERABLES Performing Organization Address City/State/ZIP Code Phon e Number [facility] Unless otherwise noted, [place] [address] [place] all lab tests performed by: Division of Pathology and Laboratory Medicine [id number] EKG, 12-Lead (05/24/2022) Specimen (Source) Anatomical Location Collection Method / Collectio n Time Received Time / Laterality Volume Narrative This result has an attachment that is no t available. Elizabeth Izquierdo MD ECG ORDERABLES Performing Organization Address City/State/ZIP Code Phon e Number [facility] Post Procedure Mammogram Right (05/23/2022 3:52 PM FIELD MECHANICAL METER TESTER) Anatomical Region Laterality Modality Breast Left Mammography Specimen (Source) Anatomical Collection Method Collection Time Re ceived Time Location / / Volume Laterality 05/23/2022 5:17 PM FIELD MECHANICAL METER TESTER Narrative 05/23/2022 5:17 PM FIELD MECHANICAL METER TESTER Clinical Indication: Patient is a 66 year old female seen for breast cancer. ULTRASOUND GUIDED VANE LONG TERM CARE PHLEBOTOMIST PLACEMENT R IGHT Comparison:The present examination has b een compared to prior imaging studies performed at [facility] on 10/26/2021, 02/09/2022 and 04/27/2022. Technique: Targeted ultrasound was perfo rmed of the lesion(s) of interest to guide localization. Findings: Mass in the right breast subar eolar position, 2 cm from the nipple. Procedures(s): Ultrasound-Guided Vane Sc out Reflector Localization - right breast Primary Proceduralist: Dr. Marleen Gibbs Business Solutions Consultant(s): None Consent: The consent for Vane Water Resource Manager refl tiffanie placement was performed The presence of the signed consent form in [facility] patient's electronic health record was confirmed prior to the procedure. [facility] consent includes a written commitment to [...] was administered for local anesthesia. one Vane Water Resource Manager reflectors were advanced into the first lesion of interest. One Vane Water Resource Manager reflector was advanced into the second lesion of the right axillary node u shaped clip interest i n the axillary node The approach was lateral to medial. After adjustment of [facility] needle tip(s), reflector deployment was [...] diagram was uploaded in the patient's electronic [facility] record. Estimated Blood Loss: Minimal Specimen(s) Removed: No Immediate Complications: None Post-procedure diagnosis: Breast cancer Disposition: The patient was discharged from Breast Imaging to the next clinical appointment in good condition. Impression: 1. Technically successful ultrasound hazel ded Vane Water Resource Manager reflector localization of the mass in the right breast subareolar position, 2 cm from the nipple. and right axillary node n Post procedural right mammogram was perf ormed. Procedure Note Marleen Gibbs MD - 05/23/2022Formatt ing of this note might be different from the original. Clinical Indication: Patient is a 66 yea r old female seen for breast cancer. ULTRASOUND GUIDED VANE LONG TERM CARE PHLEBOTOMIST PLACEMENT R IGHT Comparison:The present examination has b een compared to prior imaging studies performed at [facility] on 10/26/2021, 02/09/2022 and 04/27/2022. Technique: Targeted ultrasound was perfo rmed of the lesion(s) of interest to guide localization. Findings: Mass in the right breast subar eolar position, 2 cm from the nipple. Procedures(s): Ultrasound-Guided Vane Sc out Reflector Localization - right breast Primary Proceduralist: Dr. Marleen Gibbs Business Solutions Consultant(s): None Consent: The consent for Vane Water Resource Manager refl tiffanie placement was performed The presence of the signed consent form in [facility] patient's electronic health record was confirmed prior to the procedure. [facility] consent includes a written commitment to [...] was administered for local anesthesia. one Vane Water Resource Manager reflectors we re advanced into the first lesion of interest. One Vane Water Resource Manager reflector was advanced in to the second lesion of the right axillary node u shaped clip interest in the axillary node The approach was lateral to medial. After adjustment of [facility] needle tip(s), reflector deployment was [...] diagram was uploaded in the patient's electronic [facility] record. Estimated Blood Loss: Minimal Specimen(s) Removed: No Immediate Complications: None Post-procedure diagnosis: Breast cancer Disposition: The patient was discharged from Breast Imaging to the next clinical appointment in good condition. Impression: 1. Technically successful ultrasound hazel ded Vane Water Resource Manager reflector localization of the mass in the right breast subareolar position, 2 cm from the nipple. and right axillary node n Post procedural right mammogram was perf ormed. Chelsie RENNER IMEfren MAMMOGRAPHY ORDERABLES US Guided Axillary LN Non-Wire Localization Right (05/23/2022 3:21 PM FIELD MECHANICAL METER TESTER) Anatomical Region Laterality Modality Lymph Node Right Ultrasound Specimen (Source) Anatomical Collection Method Collection Time Re ceived Time Location / / Volume Laterality 05/23/2022 5:17 PM FIELD MECHANICAL METER TESTER Narrative 05/23/2022 5:17 PM FIELD MECHANICAL METER TESTER Clinical Indication: Patient is a 66 year old female seen for breast cancer. ULTRASOUND GUIDED VANE LONG TERM CARE PHLEBOTOMIST PLACEMENT R IGHT Comparison:The present examination has b een compared to prior imaging studies performed at [facility] on 10/26/2021, 02/09/2022 and 04/27/2022. Technique: Targeted ultrasound was perfo rmed of the lesion(s) of interest to guide localization. Findings: Mass in the right breast subar eolar position, 2 cm from the nipple. Procedures(s): Ultrasound-Guided Vane Sc out Reflector Localization - right breast Primary Proceduralist: Dr. Marleen Gibbs Business Solutions Consultant(s): None Consent: The consent for Vane Water Resource Manager refl tiffanie placement was performed The presence of the signed consent form in t he patient's electronic health record was confirmed prior [...] was administered for local anesthesia. one Vane Water Resource Manager reflectors were advanced into the first lesion of interest. One Vane Water Resource Manager reflector was advanced into the second lesion [...] diagram was uploaded in the patient's electronic [facility] record. Estimated Blood Loss: Minimal Specimen(s) Removed: No Immediate Complications: None Post-procedure diagnosis: Breast cancer Disposition: The patient was discharged from Breast Imaging to the next clinical appointment in good condition. Impression: 1. Technically successful ultrasound hazel ded Vane Water Resource Manager reflector localization of the mass in the right breast subareolar position, 2 cm from the nipple. and right axillary node n Post procedural right mammogram was perf ormed. Procedure Note Marleen Gibbs MD - 05/23/2022Formatt ing of this note might be different from the original. Clinical Indication: Patient is a 66 yea r old female seen for breast cancer. ULTRASOUND GUIDED VANE LONG TERM CARE PHLEBOTOMIST PLACEMENT R IGHT Comparison:The present examination has b een compared to prior imaging studies performed at [facility] [place] on 10/26/2021, 02/09/2022 and 04/27/2022. Technique: Targeted ultrasound was perfo rmed of the lesion(s) of interest to guide localization. Findings: Mass in the right breast subar eolar position, 2 cm from the nipple. Procedures(s): Ultrasound-Guided Vane Sc out Reflector Localization - right breast Primary Proceduralist: Dr. Marleen Gibbs Business Solutions Consultant(s): None Consent: The consent for Vane Water Resource Manager refl tiffanie placement was performed The presence of the signed consent form in [facility] patient's electronic health record was [...] was administered for local anesthesia. one Vane Water Resource Manager reflectors we re advanced into the first lesion of interest. One Vane Water Resource Manager reflector was advanced in to the second [...] diagram was uploaded in the patient's electronic [facility] record. Estimated Blood Loss: Minimal Specimen(s) Removed: No Immediate Complications: None Post-procedure diagnosis: Breast cancer Disposition: The patient was discharged from Breast Imaging to the next clinical appointment in good condition. Impression: 1. Technically successful ultrasound hazel ded Vane Water Resource Manager reflector localization of the mass in the right breast subareolar position, 2 cm from the nipple. and right axillary node n Post procedural right mammogram was perf ormed. Chelsie SAUL US ORDERABLES US Guided Breast Non-Wire Localization Right (05/23/2022 3:21 PM FIELD MECHANICAL METER TESTER) Anatomical Region Laterality Modality Breast Right Ultrasound Specimen (Source) Anatomical Collection Method Collection Time Re ceived Time Location / / Volume Laterality 05/23/2022 5:17 PM FIELD MECHANICAL METER TESTER Narrative 05/23/2022 5:17 PM FIELD MECHANICAL METER TESTER Clinical Indication: Patient is a 66 year old female seen for breast cancer. ULTRASOUND GUIDED VANE LONG TERM CARE PHLEBOTOMIST PLACEMENT R IGHT Comparison:The present examination has b een compared to prior imaging studies performed at [facility] on 10/26/2021, 02/09/2022 and 04/27/2022. Technique: Targeted ultrasound was perfo rmed of the lesion(s) of interest to guide localization. Findings: Mass in the right breast subar eolar position, 2 cm from the nipple. Procedures(s): Ultrasound-Guided Vane Sc out Reflector Localization - right breast Primary Proceduralist: Dr. Marleen Gibbs Business Solutions Consultant(s): None Consent: The consent for Vane Water Resource Manager refl tiffanie placement was performed The presence of the signed consent form in [facility] patient's electronic health record was confirmed prior to the procedure. [facility] consent includes a written commitment to [...] was administered for local anesthesia. one Vane Water Resource Manager reflectors were advanced into the first lesion of interest. One Vane Water Resource Manager reflector was advanced into the second lesion of the right axillary node u shaped clip interest i n the axillary node The approach was lateral to medial. After adjustment of [facility] needle tip(s), reflector deployment was [...] diagram was uploaded in the patient's electronic [facility] record. Estimated Blood Loss: Minimal Specimen(s) Removed: No Immediate Complications: None Post-procedure diagnosis: Breast cancer Disposition: The patient was discharged from Breast Imaging to the next clinical appointment in good condition. Impression: 1. Technically successful ultrasound hazel ded Vane Water Resource Manager reflector localization of the mass in the right breast subareolar position, 2 cm from the nipple. and right axillary node n Post procedural right mammogram was perf ormed. Procedure Note Marleen Gibbs MD - 05/23/2022Formatt ing of this note might be different from the original. Clinical Indication: Patient is a 66 yea r old female seen for breast cancer. ULTRASOUND GUIDED VANE LONG TERM CARE PHLEBOTOMIST PLACEMENT R IGHT Comparison:The present examination has b een compared to prior imaging studies performed at [facility] on 10/26/2021, 02/09/2022 and 04/27/2022. Technique: Targeted ultrasound was perfo rmed of the lesion(s) of interest to guide localization. Findings: Mass in the right breast subar eolar position, 2 cm from the nipple. Procedures(s): Ultrasound-Guided Vane Sc out Reflector Localization - right breast Primary Proceduralist: Dr. Marleen Gibbs Business Solutions Consultant(s): None Consent: The consent for Vane Water Resource Manager refl tiffanie placement was performed The presence of the signed consent form in [facility] patient's electronic health record was confirmed prior to the procedure. [facility] consent includes a written commitment to [...] was administered for local anesthesia. one Vane Water Resource Manager reflectors we re advanced into the first lesion of interest. One Vane Water Resource Manager reflector was advanced in to the second lesion of the right axillary node u shaped clip interest in the axillary node The approach was lateral to medial. After adjustment of [facility] needle tip(s), reflector deployment was [...] diagram was uploaded in the patient's electronic [facility] record. Estimated Blood Loss: Minimal Specimen(s) Removed: No Immediate Complications: None Post-procedure diagnosis: Breast cancer Disposition: The patient was discharged from Breast Imaging to the next clinical appointment in good condition. Impression: 1. Technically successful ultrasound hazel ded Vane Water Resource Manager reflector localization of the mass in the right breast subareolar position, 2 cm from the nipple. and right axillary node n Post procedural right mammogram was perf ormed. Chelsie SAUL US ORDERABLES NM Lymphoscintigraphy Breast (05/23/2022 12:40 PM FIELD MECHANICAL METER TESTER) Anatomical Region Laterality Modality Abdomen Nuclear Medicine Specimen (Source) Anatomical Collection Method Collection Time Re ceived Time Location / / Volume Laterality 05/23/2022 12:41 PM FIELD MECHANICAL METER TESTER Impressions 05/23/2022 12:42 PM FIELD MECHANICAL METER TESTER Drainage into right axillary and possible right subpectoral nodes Narrative 05/23/2022 12:42 PM FIELD MECHANICAL METER TESTER FULL RESULT: Examination: Lymphoscintigraphy, 12:40 PM Clinical [...] and possibl e right subpectoral nodes Chelsie SAUL NM ORDERABLES after 05/02/2022 Insurance Payer Benefit Plan / Subscriber ID Effective Dates Phone Addre ss Type Group HUMANA HUMANA CHOICE [id number] 2021-Presen [address] [address] Medicare [place] [address] Advance Directives Code Status Date Activated Date Inactivated Comments Full Code 05/24/2022 10:24 PM 05/25/2022 3:49 PM Care Teams Sanitary Landfill Operator Relationship Specialty Start Date End Date Kasi Triplett, PCP - External Cardiology 10/12/21 Referring [address] [phone] MARIAELENA Fermin - External Primary Internal Medicine 10/12/21 MD Larissa Care Provider [address] [place] [address] Made[address] PCP - General Breast Surgery 10/20/21 Remedios Moore MD [address] [place] [id number] Adam Melendez MD Consulting Physician Internal Medicine 04/02/[address] [place] [id number] Misty Cardoza MD Consulting Physician Cardiology 11/03/[address] [place] [id number] Yoav Valdez, Consulting Physician Plastic and 05/23/22 MD Reconstructive Surgery [address] [place] [address] Danisha Arias MD Consulting Physician Breast Medical Oncology 11/06/21 [address] [place] [address]
--- OUTSIDE RECORDS SUMMARY | 2023-05-02 15:13 | XMS REPORT | Continuity of Care Document ---
:1955 Author Organization [facility] t Address [address] [place] [address] [place] [id number] Care Team Providers Name Role Phone Larissa Silva MD Primary Care Physician [phone] SYSTEM, PROVIDER NOT IN Attending Clinician Unavailable John Triplett Attending Clinician Unavailable Erika Sue RN Attending Clinician NEGRA JARA Attending Clinician Unavailable RISA AGUILERA Attending Clinician Unavailable Cathy Butt RN Attending Clinician Unavailable Risa Wakefield Attending Clinician KEIKO QUIROGA Attending Clinician Unavailable DANISHA ARIAS Attending Clinician Unavailable Danisha Arias MD Attending Clinician Team, [facility] Attending Clinician UnavailAALIYAH Teixeira Attending Clinician Unavailable RISA AGUILERA Attending Clinician Unavailable UBALDO SOLITARIO Attending Clinician Unavailable UBALDO SOLITARIO Attending Clinician Unavailable Braxton CALVERT, Hung B Attending Clinician Unavailable KERRY PLAZA Attending Clinician Unavailable Kerry Plaza MD Attending Clinician Maylin RENNER, Lisa Attending Clinician [phone] LISA CARLISLE Attending Clinician Unavailable Patricia Kapadia Attending Clinician BELIA ARBOLEDA Attending Clinician Unavailable Eliel CLAY, Jose Attending Clinician PATRICIA DE LA VEGA Attending Clinician Unavailable Doctor Unassigned, [place] Attending Clinician Unavailable Say CALVERT, Jackie Unger Attending Clinician Unavailable Gayatri Attending Clinician Unavailable JOHN TRIPLETT Attending Clinician Unavailable JOSE JULIAN Attending Clinician Unavailable Vaishali RIVERA, Florinda Mejia Attending Clinician Unavailable DEREK DURON-C Attending Clinician Unavailable Aleksey CALVERT, Skye Attending Clinician Jeremias CALVERT, Charmaine Attending Clinician Unavailable Anastasia CLAY, Dianna Attending Clinician Yoav Valdez MD Attending Clinician Renato CLAY, Redd Dyson Attending Clinician [phone] Dolores CALVERT, Parul Burns Attending Clinician Unavailable Mikal CALVERT, Pietro Downing Attending Clinician Unavailable Harini Nagel RN Attending Clinician Unavailable Tomasz Stockton APRN Attending Clinician Jackeline Andrew RN Attending Clinician Alba Reyes MD Attending Clinician Melissa Geller CRNA Attending Clinician Erika Stephenson Attending Clinician Kyleigh Arellano APRN Attending Clinician Princess Christianson Attending Clinician Dalia Tyler RN Attending Clinician Antionette Norman MD Attending Clinician Gladis Whitmore MA Attending Clinician Unavailable Al CLAY, Adam Attending Clinician Matteo CALVERT, Sebas Downing Attending Clinician Unavailable Ryann CALVERT, Korin Messina Attending Clinician Unavailable Kasia Ivory MD Attending Clinician Samanta Rolle RN Attending Clinician Unavailable Karlie Link RN Attending Clinician Unavailable Remington CALVERT, Becky Attending Clinician Unavailable Gil Aguirre APRN Attending Clinician GIL AGUIRRE Attending Clinician Unavailable Carla CALVERT, Ivis Attending Clinician Unavailable Loi CALVERT, Adelaide Alba Attending Clinician Unavailable Merle CALVERT, Gunjan Howard Attending Clinician Quinten CALVERT, Shahnaz Chavez Attending Clinician Era CALVERT, Chey Downing Attending Clinician Suri CALVERT, Gagandeep Howard Attending Clinician Unavailable Aaron Perez Attending Clinician Cha Dumont RN Attending Clinician Max Woodward MD Attending Clinician [...] Unavailable Tiffany Lambert MD Attending Clinician , Adc Surg Spec Procedure Attending Clinician Unavailable DUNCAN HOLLY Attending Clinician Unavailable Duncan Tolentino Attending Clinician Radiology Attending Clinician Unavailable RADIOLOGY Attending Clinician Unavailable Martha Mckoy MA Attending Clinician Unavailable Lab, Adc Fam Pob I Attending Clinician Unavailable CARLA SELLERS Attending Clinician Unavailable RADHA MENDOZA Attending Clinician Unavailable ABBI SILVA Attending Clinician Unavailable JAYME DAY Attending Clinician Unavailable ANJUM CASTRO Attending Clinician Unavailable Tomasz Tafoya Attending Clinician Unavailable SENIA BUCHANAN Attending Clinician Unavailable Gayatri Admitting Clinician Unavailable KERRY PLAZA Admitting Clinician Unavailable TIFFANY LAMBERT Admitting Clinician Unavailable JAYME DAY Admitting Clinician Unavailable ANJUM CASTRO Admitting Clinician Unavailable Tomasz Tafoya Admitting Clinician Unavailable Payers Payer Name Policy Type Policy Number Effective Date Expiration Date Ricky MILLER (MEDICARE [id number] REPLACEMENT/ADVANT AGE - PPO) [place]IC[place] B-[place]: [id number] 2001 Divitel 00:00:00 WELLMED/AARP [id number] 2020 MEDICARE ADVANTAGE 00:00:00 Problems Condition Condition Condition Status Onset Resolution Last Treating Co mments Source Name Details Category Date Date Treatment Clinician Date Obesity Obesity Disease Active Univers (BMI (BMI 3-13 ity of 30-39.9) 30-39.9) 00:00: [place] 00 Medical Branch Hyperlipid Hyperlipid Disease Active U nivers emia, emia, 3-13 ity of unspecifie [place]specif[place] Medical hyperlipid hyperlipid Br anch emia type emia type Hypertensi Hypertensi Disease Active 2021-06 U nivers on on 07-25 ity of 00:00: [place] 00 MD [facility] Hyperlipid Hyperlipid Disease Active 2021-06 U kulwinderers emia emia 07-25 ity of 00:00: 00 MD [facility] Coronary Coronary Disease Active 2021-06 Unive rs artery artery 07-25 ity of disease disease 00:00: [place] due to due to 00 calcified calcified Oli rso coronary coronary n lesion lesion [facility] Bradycardi Bradycardi Disease Active 2021-06 U nivers a a 07-25 ity of 00:00: [place] 00 MD [facility] [place] Estrogen Estrogen Disease Active Unive rs receptor receptor 8-24 ity of positive positive 00:00: [place] status status 00 (ER+) (ER+) [facility] [place] Neoplasm Neoplasm Disease Active Unive rs of breast of breast 8-24 ity of regional regional 00:00: [place] lymph node lymph node 00 staging staging Anderso category category n N1: N1: Cancer Metastasis Metastasis Ce nter to movable to movable ipsilatera ipsilatera l level I, l level I, II II axillary axillary lymph lymph node(s) node(s) 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 estrogen estrogen Added receptor receptor automatic positive positive ally from request for surgery [id number] Nonobstruc Nonobstruc Disease Active U nivers tive [...] ity of osteoarthr osteoarthr g of this [place] osis, osis, note Medical unspecifie unspecifie might be Branch d site d site different from the original. Hands, knees, hips; left leg is more symptomat ic Hypermobil Hypermobil Disease Active U nivers ity ity ity of syndrome syndrome [place] [facility] Essential Essential Disease Active Overview: Univers hypertensi hypertensi Formattin ity of on on g of this [place] note Medical might be Branch different from the original. 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 Unspecifie Unspecifie Disease Active U nivers [...] DRUG Active Other 2021-0 MD EL INGREDI 24 Anderso 00:00: n 00 PACLITAX DRUG Active Other 2021-0 MD EL INGREDI 24 [place] 00:00: n 00 PACLITAX DRUG Active Other 2021-0 MD EL INGREDI 24 [place] 00:00: n 00 Paclitax Propensi Active Other (See CO: Un michelle el ty to Comments) 24 coughing ity o f adverse 00:00: flushing, [...] LIDOCAIN DRUG Active 2021-0 MD E INGREDI -06 Anderso 00:00: n 00 LIDOCAIN DRUG Active 2-0 MD E INGREDI 5-06 [place] 00:00: n 00 LIDOCAIN DRUG Active 2-0 MD E INGREDI 5-06 Anderso 00:00: n 00 LIDOCAIN DRUG Active 2-0 MD E INGREDI 5-06 [place] 00:00: n 00 LIDOCAIN DRUG Active 2-0 MD E INGREDI 5-06 Anderso 00:00: n 00 LIDOCAIN DRUG Active 2-0 MD E INGREDI 5-06 Anderso 00:00: n 00 LIDOCAIN DRUG Active 2-0 MD E INGREDI 5-06 Anders[place] 00:00: n 00 LIDOCAIN DRUG Active 2-0 MD E INGREDI 5-06 Anderso 00:00: n [...] Anderso 00:00: n 00 Lidocain Propensi Active 2-0 Makes Univer s e ty to 506 hands ity of adverse 00:00: itch few [place] reaction 00 days MD s after [facility]o injection n [facility] No Known DA Active U 0 SJm Drug 3-18 Allergie 00:00: s 00 NO KNOWN Drug Active [facility] ALLERGIE Class ity of S [facility] Family History Family Member Diagnosis Comments Start Date Stop Date Source Maternal cousin No Known Problems Un iversity of [facility] Natural sister Cervical cancer Unive rsity of [facility] Natural sister Colon cancer Universi ty of [facility] Social History Social Habit Start Date Stop Date Quantity Comments Source Gender identity Universit y [facility] Sexual orientation Univer sity [facility] MD Craig faust [facility] Exposure to 2022-11-10 2022-11-20 Not sure [facility] SARS-CoV-2 (event) 00:00:00 10:57:00 [facility] Alcohol intake 2022-05-30 2022-05-30 Lifetime University of 00:00:00 00:00:00 non-drinker [place] MD Oli feliciano (finding) [facility] History of Social 2022-05-30 2022-05-30 Univers ity of function 00:00:00 00:00:00 [place] MD Craig faust [facility] Tobacco use and 2021-12-26 2021-12-26 Smokeless Universit y of exposure 00:00:00 00:00:00 tobacco non-user [facility] Sex [birth year] Universit y of 00:00:00 00:00:00 [place] MD Srinivasan [facility] Smoking Status Start Date Stop Date Source Never smoked tobacco [facility] Medications Ordered Filled Start Stop Current Ordering Indication Dosage Frequency Signature Comments Components Source Medication Medication Date Date Medication? Clinician (SIG) Name Name aspirin 81 2022-06 Yes 81mg Chew 1 Unive rs mg chewable 0-23 tablet (81 it y of tablet 11:34: mg) daily. [place] 37 MD Yoselin arizmendi [facility] omega-3 2022-06 Yes 1000mg Take 1 Univer s fatty 0-23 capsule ity of acids/fish 11:34: (1,000 mg) [place] oil (fish 37 by mouth. oil-omega-3 Andcoltono fatty n acids) Cancer 300-1,000 Center mg capsule cholecalcif 2022-06 Yes 1{capsu Take 1 U nivers adeel, 0-23 le} capsule by ity of vitamin D3, 11:34: mouth [place] 100 mcg 37 daily. (4,000 Anderso unit) cap n Cancer Center losartan-hy 2022-06 Yes 1{tbl} Take 1 Un michelle drochloroth 0-23 tablet by ity of iazide 11:34: mouth [place] (HYZAAR) 37 daily. 100-25 mg [place] per tablet n Cancer [place] cyanocobala 2022-06 Yes Take by Uni vers min, 0-23 mouth. ity of vitamin 11:34: [place] B-12, 37 MD (VITAMIN Anderso B-12 ORAL) n Cancer [place] phenylephri 2022-06 Yes 10mg Take 1 Univ ers ne (SUDAFED 0-23 tablet (10 it y of PE) 10 MG 11:34: mg) by [place] tab 37 mouth every 4 Anderso (four) n hours as Cancer needed for Center congestion . abemaciclib 2022-06 Yes Infiltratin Take 1 Univers (Verzenio) 0-18 g ductal tablet ity of 100 mg 00:00: carcinoma (100 mg[place] tablet 00 of central by mouth MD portion of twice Anderso right daily. n [facility] breast [place] gabapentin Yes Infiltratin 300mg Take 1 Univers (NEURONTIN) 7-24 g ductal capsule i ty of 300 mg 00:00: carcinoma (300 mg) [place] capsule 00 of central by mouth portion of twice Anderso right daily. n [facility] omega-3 Yes 1000mg Take 1 Univer s fatty 5-30 capsule ity of acids/fish 11:42: (1,000 mg) [place] oil (fish 54 by mouth. oil-omega-3 Anderso fatty n acids) Cancer 300-1,000 Center mg capsule phenylephri Yes 10mg Take 1 Univ ers ne (SUDAFED 5-30 tablet (10 it y of PE) 10 MG 11:42: mg) by [place] tab 54 mouth every 4 Anderso (four) n hours as Cancer needed for Center congestion . aspirin 81 Yes 81mg Chew 1 Unive rs mg chewable 5-30 tablet (81 it y of tablet 11:28: mg) daily. [place] 59 MD Anderso n [facility] cholecalcif Yes 1{capsu Take 1 U nivers adeel, 5-30 le} capsule by ity of vitamin D3, 11:28: mouth [place] 100 mcg 59 daily. (4,000 Anderso unit) cap [facility] losartan-hy Yes 1{tbl} Take 1 Un michelle drochloroth 5-30 tablet by ity of iazide 11:28: mouth [place] (HYZAAR) 59 daily. 100-25 mg [place] per tablet [facility] cyanocobala Yes Take by Uni vers min, 5-30 mouth. ity of vitamin 11:28: [place] B-12, 59 (VITAMIN Anderso B-12 ORAL) [facility] ACETAMINOPH Yes 1-2 pills U nivers EN 500 MG 5-23 a day ity of ORAL TAB 15:46: [place] [address] Medical Branch GLUCOSAMINE Yes 1-2 pills U nivers &CHONDROIT- 5-23 a day ity of MV-MIN3 15:46: [place] [id number] Medical 0.5 MG ORAL Branch TAB omega-3 Yes 1000mg Take 1 Univer s fatty acids 5-23 capsule by it y of capsule 15:46: mouth in [place] 45 the Medical morning. Branch ACETAMINOPH Yes 1-2 pills U nivers EN 500 MG 5-23 a day ity of ORAL TAB 15:46: [place] [address] Medical Branch GLUCOSAMINE 0 Yes 1-2 pills U nivers &CHONDROIT- 5-23 a day ity of MV-MIN3 15:46: [place] [id number] Medical 0.5 MG ORAL Branch TAB omega-3 0 Yes 1000mg Take 1 Univer s fatty acids 5-23 capsule by it y of capsule 15:46: mouth in [place] 45 the Medical morning. Branch ACETAMINOPH 0 Yes 1-2 pills U nivers EN 500 MG 5-23 a day ity of ORAL TAB 15:46: [place] [address] Medical Branch GLUCOSAMINE 0 Yes 1-2 pills U nivers &CHONDROIT- 5-23 a day ity of MV-MIN3 15:46: [place] [id number] Medical 0.5 MG ORAL Branch TAB omega-3 0 Yes 1000mg Take 1 Univer s fatty acids 5-23 capsule by it y of capsule 15:46: mouth in [place] 45 the Medical morning. Branch ACETAMINOPH 0 Yes 1-2 pills U nivers EN 500 MG 5-23 a day ity of ORAL TAB 15:46: [place] [address] Medical Branch GLUCOSAMINE 2022-0 Yes 1-2 pills U nivers &CHONDROIT- 5-23 a day ity of MV-MIN3 15:46: [address] 45 Medical 0.5 MG ORAL Branch TAB omega-3 0 Yes 1000mg Take 1 Univer s fatty acids 5-23 capsule by it y of capsule 15:46: mouth in [place] 45 the Medical morning. Branch ACETAMINOPH 0 Yes 1-2 pills U nivers EN 500 MG 5-23 a day ity of ORAL TAB 15:46: [place] [address] Medical Branch GLUCOSAMINE 0 Yes 1-2 pills U nivers &CHONDROIT- 5-23 a day ity of MV-MIN3 15:46: [address] Medical 0.5 MG ORAL Branch TAB omega-3 0 Yes 1000mg Take 1 Univer s fatty acids 5-23 capsule by it y of capsule 15:46: mouth in [place] 45 the Medical morning. Branch ACETAMINOPH 0 Yes 1-2 pills U nivers EN 500 MG 5-23 a day ity of ORAL TAB 15:46: [place] [address] Medical Branch GLUCOSAMINE 0 Yes 1-2 pills U nivers &CHONDROIT- 5-23 a day ity of MV-MIN3 15:46: [address] Medical 0.5 MG ORAL Branch TAB omega-3 2022-0 Yes 1000mg Take 1 Univer s fatty acids 5-23 capsule by it y of capsule 15:46: mouth in [place] 45 the Medical morning. Branch ACETAMINOPH 0 Yes 1-2 pills U nivers EN 500 MG 5-23 a day ity of ORAL TAB 15:46: [place] [address] Medical Branch GLUCOSAMINE 2022-0 Yes 1-2 pills U nivers &CHONDROIT- 5-23 a day ity of MV-MIN3 15:46: [place] [id number] 45 Medical 0.5 MG ORAL Branch TAB omega-3 2022-0 Yes 1000mg Take 1 Univer s fatty acids 5-23 capsule by it y of capsule 15:46: mouth in [place] 45 the Medical morning. Branch ACETAMINOPH 0 Yes 1-2 pills U nivers EN 500 MG 5-23 a day ity of ORAL TAB 15:46: [place] 45 Medical Branch GLUCOSAMINE 2022-0 Yes 1-2 pills U nivers &CHONDROIT- 5-23 a day ity of MV-MIN3 15:46: [place] [id number] Medical 0.5 MG ORAL Branch TAB omega-3 0 Yes 1000mg Take 1 Univer s fatty acids 5-23 capsule by it y of capsule 15:46: mouth in [place] 45 the Medical morning. Branch losartan-hy 2022-0 2022- No 1{tbl} Take 1 U nivers drochloroth 5-16 05-16 tablet by it y of iazide 16:21: 00:00 mouth in [place] 100-25 mg 57 :00 the Medical per tablet morning. [facility] losartan-hy Yes [id number] 1{tbl} Take 1 Univers drochloroth 5-16 tablet by ity of iazide 00:00: mouth in [place] 100-25 mg 00 the Medical per tablet morning. [facility] atorvastati 0 Yes [id number] 20mg Take 1 Univers n 20 mg 5-16 tablet by ity of tablet 00:00: mouth in [place] 00 the Medical morning. Branch losartan-hy 0 Yes [id number] 1{tbl} Take 1 Univers drochloroth 5-16 tablet by ity of iazide 00:00: mouth in [place] 100-25 mg 00 the Medical per tablet morning. [facility] atorvastati 2022-0 Yes [id number] 20mg Take 1 Univers n 20 mg 5-16 tablet by ity of tablet 00:00: mouth in [place] 00 the Medical morning. Branch losartan-hy 0 Yes [id number] 1{tbl} Take 1 Univers drochloroth 5-16 tablet by ity of iazide 00:00: mouth in [place] 100-25 mg 00 the Medical per tablet morning. [facility] atorvastati 2022-0 Yes [id number] 20mg Take 1 Univers n 20 mg 5-16 tablet by ity of tablet 00:00: mouth in [place] 00 the Medical morning. Branch losartan-hy 2022-0 Yes [id number] 1{tbl} Take 1 Univers drochloroth 5-16 tablet by ity of iazide 00:00: mouth in [place] 100-25 mg 00 the Medical per tablet morning. [facility] h atorvastati 2022-0 Yes [id number] 20mg Take 1 Univers n 20 mg 5-16 tablet by ity of tablet 00:00: mouth in [place] 00 the Medical morning. Branch losartan-hy 2022-0 Yes [id number] 1{tbl} Take 1 Univers drochloroth 5-16 tablet by ity of iazide 00:00: mouth in [place] 100-25 mg 00 the Medical per tablet morning. [facility] h atorvastati 2022-0 Yes [id number] 20mg Take 1 Univers n 20 mg 5-16 tablet by ity of tablet 00:00: mouth in [place] 00 the Medical morning. Branch losartan-hy 2022-0 Yes [id number] 1{tbl} Take 1 Univers drochloroth 5-16 tablet by ity of iazide 00:00: mouth in [place] 100-25 mg 00 the Medical per tablet morning. [facility] h atorvastati 2022-0 Yes [id number] 20mg Take 1 Univers n 20 mg 5-16 tablet by ity of tablet 00:00: mouth in [place] 00 the Medical morning. Branch losartan-hy 2022-0 Yes [id number] 1{tbl} Take 1 Univers drochloroth 5-16 tablet by ity of iazide 00:00: mouth in [place] 100-25 mg 00 the Medical per tablet morning. [facility] h atorvastati 2022-0 Yes [id number] 20mg Take 1 Univers n 20 mg 5-16 tablet by ity of tablet 00:00: mouth in [place] 00 the Medical morning. Branch losartan-hy 2022-0 Yes [id number] 1{tbl} Take 1 Univers drochloroth 5-16 tablet by ity of iazide 00:00: mouth in [place] 100-25 mg 00 the Medical per tablet morning. [facility] h atorvastati 3-0 Yes [id number] 20mg Take 1 Univers n 20 mg 5-16 tablet by ity of tablet 00:00: mouth in [place] 00 the Medical morning. Branch losartan-hy 2022-0 Yes [id number] 1{tbl} Take 1 Univers drochloroth 5-16 tablet by ity of iazide 00:00: mouth in [place] 100-25 mg 00 the Medical per tablet morning. [facility] atorvastati 2022-0 Yes [id number] 20mg Take 1 Univers n 20 mg 5-16 tablet by ity of tablet 00:00: mouth in [place] 00 the Medical morning. [place] losartan-hy 2022-0 Yes [id number] 1{tbl} Take 1 Univers drochloroth 5-16 tablet by ity of iazide 00:00: mouth in [place] 100-25 mg 00 the Medical per tablet morning. [facility] atorvastati 0 Yes [id number] 20mg Take 1 Univers n 20 mg 5-16 tablet by ity of tablet 00:00: mouth in [place] 00 the Medical morning. [place] atorvastati 0 Yes [id number] 20mg Take 1 Univers n 20 mg 5-06 tablet by ity of tablet 00:00: mouth in [place] 00 the Medical morning. [place] atorvastati 0 Yes [id number] 20mg Take 1 Univers n 20 mg 5-06 tablet by ity of tablet 00:00: mouth in [place] 00 the Medical morning. [place] atorvastati 2022- No [id number] 20mg Take 1 Univers n 20 mg 5-06 05-16 tablet by ity of tablet 00:00: 00:00 mouth in [place] 00 :00 the Medical morning. [place] abemaciclib Yes Infiltratin Take 1 Univers (Verzenio) 5-03 g ductal tablet ity of 100 mg 00:00: carcinoma (100 mg) [place] tablet 00 of central by mouth MD portion of twice [place] right daily. n [facility] abemaciclib Yes Infiltratin Take 1 Univers (Verzenio) 5-03 g ductal tablet ity of 100 mg 00:00: carcinoma (100 mg) [place] tablet 00 of central by mouth MD portion of twice Anderso right daily. n [facility] abemaciclib Yes Infiltratin 100mg Take 1 Univers (Verzenio) 5-02 g ductal tablet ity of 100 mg 00:00: carcinoma (100 mg) [place] tablet 00 of central by mouth MD portion of twice Anderso right daily. n [facility] abemaciclib Yes Infiltratin 100mg Take 1 Univers (Verzenio) 5-02 g ductal tablet ity of 100 mg 00:00: carcinoma (100 mg) [place] tablet 00 of central by mouth MD portion of twice Anderso right daily. n [facility] abemaciclib 2022- No Infiltratin 150mg Take 1 Univers (Verzenio) 3-27 05-01 g ductal tablet by ity of 150 mg 00:00: 00:00 carcinoma [place] tablet 00 :00 of central twice MD portion of daily. Anders[place] right n [facility] abemaciclib 2022- No Infiltratin 150mg Take 1 Univers (Verzenio) 3-27 05-01 g ductal tablet by ity of 150 mg 00:00: 00:00 carcinoma [place] tablet 00 :00 of central twice MD portion of daily. Anderso right [facility] fluticasone Yes 50ug Inhale 1 Un michelle propionate 3-22 spray (50 ity of (FLONASE) 00:00: mcg) into [place] as 50 00 each MD mcg/spray nostril Anderso nasal spray daily. [facility] fluticasone Yes 1{spray Inhale 1 Univers propionate 3-22 } spray (50 ity of (FLONASE) 00:00: mcg) into [place] as 50 00 each MD mcg/spray nostril Anderso nasal spray daily. [facility] losartan-hy Yes 1{tbl} Take 1 Un michelle drochloroth 3-13 tablet by ity of iazide 15:19: mouth in [place] 100-25 mg 40 the Medical per tablet morning. Branc h ASPIRIN 81 0 Yes 1 PO daily U nivers MG ORAL 3-13 ity of CHEW 15:19: [place] 40 Medical Branch cholecalcif Yes 1{capsu Take 1 U nivers adeel, 3-13 le} capsule by ity of vitamin D3, 15:19: mouth [place] 100 mcg 40 daily. Medical (4,000 Branch unit) Cap ASPIRIN 81 2023-0 Yes 1 PO daily U nivers MG ORAL 3-13 ity of CHEW 15:19: [address] cholecalcif 2022-0 Yes 1{capsu Take 1 U nivers adeel, 3-13 le} capsule by ity of vitamin D3, 15:19: mouth [place] 100 mcg 40 daily. Medical (,000 Branch unit) Cap ASPIRIN 81 2022-0 Yes 1 PO daily U nivers MG ORAL 3-13 ity of CHEW 15:19: [address] cholecalcif 2022-0 Yes 1{capsu Take 1 U nivers adeel, 3-13 le} capsule by ity of vitamin D3, 15:19: mouth [place] 100 mcg 40 daily. Medical (,000 Branch unit) Cap ASPIRIN 81 2022-0 Yes 1 PO daily U nivers MG ORAL 3-13 ity of CHEW 15:19: [address] cholecalcif 2022-0 Yes 1{capsu Take 1 U nivers adeel, 3-13 le} capsule by ity of vitamin D3, 15:19: mouth [place] 100 mcg 40 daily. Medical (,000 Branch unit) Cap ASPIRIN 81 2022-0 Yes 1 PO daily U nivers MG ORAL 3-13 ity of CHEW 15:19: [address] cholecalcif 0 Yes 1{capsu Take 1 U nivers adeel, 3-13 le} capsule by ity of vitamin D3, 15:19: mouth [place] 100 mcg 40 daily. Medical (,000 Branch unit) Cap ASPIRIN 81 2022-0 Yes 1 PO daily U nivers MG ORAL 3-13 ity of CHEW 15:19: [address] cholecalcif 2022-0 Yes 1{capsu Take 1 U nivers adeel, 3-13 le} capsule by ity of vitamin D3, 15:19: mouth [place] 100 mcg 40 daily. Medical (,000 Branch unit) Cap ASPIRIN 81 2022-0 Yes 1 PO daily U nivers MG ORAL 3-13 ity of CHEW 15:19: [address] cholecalcif 2022-0 Yes 1{capsu Take 1 U nivers adeel, 3-13 le} capsule by ity of vitamin D3, 15:19: mouth [place] 100 mcg 40 daily. Medical (,000 Branch unit) Cap ASPIRIN 81 2022-0 Yes 1 PO daily U nivers MG ORAL 3-13 ity of CHEW 15:19: [address] cholecalcif 2022-0 Yes 1{capsu Take 1 U nivers adeel, 3-13 le} capsule by ity of vitamin D3, 15:19: mouth [place] 100 mcg 40 daily. Medical (,000 Branch unit) Cap ASPIRIN 81 2022-0 Yes 1 PO daily U nivers MG ORAL 3-13 ity of CHEW 15:19: [address] cholecalcif 2022-0 Yes 1{capsu Take 1 U nivers adeel, 3-13 le} capsule by ity of vitamin D3, 15:19: mouth [place] 100 mcg 40 daily. Medical (,000 Branch unit) Cap ASPIRIN 81 2022-0 Yes 1 PO daily U nivers MG ORAL 3-13 ity of CHEW 15:19: [address] cholecalcif 0 Yes 1{capsu Take 1 U nivers adeel, 3-13 le} capsule by ity of vitamin D3, 15:19: mouth [place] 100 mcg 40 daily. Medical (,000 Branch unit) Cap ASPIRIN 81 2022-0 Yes 1 PO daily U nivers MG ORAL 3-13 ity of CHEW 15:19: [address] cholecalcif 0 Yes 1{capsu Take 1 U nivers adeel, 3-13 le} capsule by ity of vitamin D3, 15:19: mouth [place] 100 mcg 40 daily. Medical (,000 Branch unit) Cap ASPIRIN 81 2022-0 Yes 1 PO daily U nivers MG ORAL 3-13 ity of CHEW 15:19: [address] cholecalcif 2022-0 Yes 1{capsu Take 1 U nivers adeel, 3-13 le} capsule by ity of vitamin D3, 15:19: mouth [place] 100 mcg 40 daily. Medical (,000 Branch unit) Cap losartan-hy 2022-0 Yes 1{tbl} Take 1 Un michelle drochloroth 3-13 tablet by ity of iazide 15:19: mouth in [place] 100-25 mg 40 the Medical per tablet morning. Branc h ASPIRIN 81 2022-0 Yes 1 PO daily U nivers MG ORAL 3-13 ity of CHEW 15:19: [address] cholecalcif 2023-0 Yes 1{capsu Take 1 U nivers adeel, 3-13 le} capsule by ity of vitamin D3, 15:19: mouth [place] 100 mcg 40 daily. Medical (4,000 Branch unit) Cap losartan-hy 2022-0 Yes 1{tbl} Take 1 Un michelle drochloroth 3-13 tablet by ity of iazide 15:19: mouth in [place] 100-25 mg 40 the Medical per tablet morning. Bran h ASPIRIN 81 2022-0 Yes 1 PO daily U nivers MG ORAL 3-13 ity of CHEW 15:19: [place] 40 Medical Branch cholecalcif 0 Yes 1{capsu Take 1 U nivers adeel, 3-13 le} capsule by ity of vitamin D3, 15:19: mouth [place] 100 mcg 40 daily. Medical (4,000 Branch unit) Cap losartan-hy 0 Yes 1{tbl} Take 1 Un [place]helle drochloroth 3-13 tablet by ity of iazide 15:19: mouth in [place] 100-25 mg 40 the Medical per tablet morning. Bran h ASPIRIN 81 2022-0 Yes 1 PO daily U nivers MG ORAL 3-13 ity of CHEW 15:19: [place] 40 [facility] Branch cholecalcif 0 Yes 1{capsu Take 1 U nivers adeel, 3-13 le} capsule by ity of vitamin D3, 15:19: mouth [place] 100 mcg 40 daily. Medical (4,000 Branch unit) Cap losartan-hy 0 Yes 1{tbl} Take 1 Un [place]helle drochloroth 3-13 tablet by ity of iazide 15:19: mouth in [place] 100-25 mg 40 the Medical per tablet morning. Bran h ASPIRIN 81 2022-0 Yes 1 PO daily U nivers MG ORAL 3-13 ity of CHEW 15:19: [place] 40 Medical Branch cholecalcif 2022-0 Yes 1{capsu Take 1 U nivers adeel, 3-13 le} capsule by ity of vitamin D3, 15:19: mouth [place] 100 mcg 40 daily. Medical (4,000 Branch unit) Cap losartan-hy 2022-0 Yes 1{tbl} Take 1 Un [place]helle drochloroth 3-13 tablet by ity of iazide 15:19: mouth in [place] 100-25 mg 40 the Medical per tablet morning. Bran h ASPIRIN 81 2022-0 Yes 1 PO daily U nivers MG ORAL 3-13 ity of CHEW 15:19: [place] 40 Medical Branch cholecalcif 2022-0 Yes 1{capsu Take 1 U nivers adeel, 3-13 le} capsule by ity of vitamin D3, 15:19: mouth [place] 100 mcg 40 daily. Medical (4,000 Branch unit) Cap atorvastati 0 Yes [id number] 20mg Take 1 Univers n 20 mg 2-03 tablet by ity of tablet 00:00: mouth in [place] 00 the Medical morning. Branch atorvastati 2022-0 Yes [id number] 20mg Take 1 Univers n 20 mg 2-03 tablet by ity of tablet 00:00: mouth in [place] 00 the Medical morning. Branch atorvastati 2022-0 Yes [id number] 20mg Take 1 Univers n 20 mg 2-03 tablet by ity of tablet 00:00: mouth in [place] 00 the Medical morning. Branch atorvastati 2022-0 Yes [id number] 20mg Take 1 Univers n 20 mg 2-03 tablet by ity of tablet 00:00: mouth in [place] 00 the Medical morning. Branch atorvastati 2022-0 Yes [id number] 20mg Take 1 Univers n 20 mg 2-03 tablet by ity of tablet 00:00: mouth in [place] 00 the Medical morning. Branch atorvastati 0 2022- No [id number] 20mg Take 1 Univers n 20 mg 2-03 05-06 tablet by ity of tablet 00:00: 00:00 mouth in [place] 00 :00 the Medical morning. Branch atorvastati 2022-0 2022- No [id number] 20mg Take 1 Univers n 20 mg 2-03 05-06 tablet by ity of tablet 00:00: 00:00 mouth in [place] 00 :00 the Medical morning. Branch atorvastati 2022-0 2022- No [id number] 20mg Take 1 Univers n 20 mg 2-03 05-06 tablet by ity of tablet 00:00: 00:00 mouth in [place] 00 :00 the Medical morning. Branch letrozole 0 Yes Infiltratin 2.5mg Take 1 Univers (Femara) 1-30 g ductal tablet ity o f 2.5 mg 00:00: carcinoma (2.5 mg) [place] tablet 00 of central by mouth MD portion of daily. Anderso right n [facility] letrozole Yes Infiltratin 2.5mg Take 1 Univers (Femara) 1-30 g ductal tablet ity o f 2.5 mg 00:00: carcinoma (2.5 mg) [place] tablet 00 of central by mouth MD portion of daily. Anderso right n [facility] gabapentin 2021-06 Yes Infiltratin 300mg Take 1 Univers (NEURONTIN) 2-28 g ductal capsule i ty of 300 mg 00:00: carcinoma (300 mg) [place] capsule 00 of central by mouth MD portion of twice Anderso right daily. n [facility] gabapentin 2021-06- No Infiltratin 300mg Take 1 Univers (NEURONTIN) 2-28 07-24 g ductal capsule ity of 300 mg 00:00: 00:00 carcinoma (300 mg) [place] capsule 00 :00 of central by mouth MD portion of twice Anderso right daily. n [facility] No Take by Un michelle en 07-26 mouth as ity of (TYLENOL) 13:44: 00:[place] 500 mg 35 :00 MD tablet Anderso [facility] 2021-06- No Take by Un michelle en 07-26 mouth as ity of (TYLENOL) 13:44: 00: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 axillary lymph node(s) ibuprofen 2021-06- No Neoplasm of 800mg Take 1 Univers (ADVIL,MOTR 230 breast tablet ity of [place]) 800 mg 00:00: 00:00 regional (800 mg) [place] tablet 00 :00 lymph node by mouth MD staging every 8 Anderso category (eight) n N1: hours as Cancer Metastasis needed for Darrin ter to movable moderate ipsilateral pain or level I, II mild pain. axillary lymph node(s) nystatin 2021-06- No SWISH, Univer s (MYCOSTATIN 0-21 11-30 HOLD, THEN i ty of ) 100,000 00:00: 00:00 SWALLOW 6 [place] units/mL 00 :00 ML 4 TIMES MD suspension A DAY FOR Oli rso 10 DAYS n [facility] Center nystatin 2021-06- No SWISH, Univer s (MYCOSTATIN 0-21 11-30 HOLD, THEN i ty of ) 100,000 00:00: 00:00 SWALLOW 6 [place] units/mL 00 :00 ML 4 TIMES MD suspension A DAY FOR Oli rso 10 DAYS [facility] gabapentin 2021-06- No Infiltratin 300mg Take 1 Univers (NEURONTIN) 0-04 12-28 g ductal capsule ity of 300 mg 00:00: 00:00 carcinoma (300 mg) [place] capsule 00 :00 of central by mouth MD portion of at Anders right bedtime. n female [facility] gabapentin 2021-06- No Infiltratin 300mg Take 1 Univers (NEURONTIN) 0-04 12-28 g ductal capsule ity of 300 mg 00:00: 00:00 carcinoma (300 mg) [place] capsule 00 :00 of central by mouth MD portion of at Anderso right bedtime. n [facility] cefdinir 2021- No 1{capsu Take 1 Uni vers (OMNICEF) 9-30 11-30 le} capsule by ity of 300 mg 00:00: 00:00 mouth [place] capsule 00 :00 [facility]. [facility]- No 1{capsu Take 1 Uni vers (OMNICEF) 9-30 11-30 le} capsule by ity of 300 mg 00:00: 00:00 mouth [place] capsule 00 :00 twice MD daily. [facility] aspirin 81 Yes 81mg Chew 81 mg U nivers mg chewable 9-13 daily. ity of tablet 13:35: [place] 41 MD [place] [facility] omega-3 Yes 1000mg Take 1,000 Un michelle fatty 9-13 mg by ity of acids/fish 13:35: mouth. [place] oil (fish 41 oil-omega-3 Anderso fatty n acids) Cancer 300-1,000 Center mg capsule cholecalcif Yes 1{capsu Take 1 U nivers adeel, 9-13 le} capsule by ity of vitamin D3, 13:35: mouth [place] 100 mcg 41 daily. (4,000 Anderso unit) staci [facility] losartan-hy Yes 1{tbl} Take 1 Un michelle drochloroth 9-13 tablet by ity of iazide 13:35: mouth [place] (HYZAAR) 41 daily. 100-25 mg Anderso per tablet n [facility] Center acetaminoph Yes Take by Uni vers en 9-13 mouth as ity of (TYLENOL) 13:35: needed. [place] 500 mg 41 MD tablet Anderso n [facility] cyanocobala Yes Take by Uni vers min, 9-13 mouth. ity of vitamin 13:35: [place] B-12, 41 (VITAMIN Anderso B-12 ORAL) n Cancer Center ondansetron Yes Infiltratin 8mg Take 1 [...] ity of (COMPAZINE) 00:00: carcinoma mg) by [place] 10 mg 00 of right mouth MD tablet female every 6 Anderso breast (six) n hours as Cancer needed for Center nausea or vomiting (breakthro ugh). ondansetron 2021-0 Yes Infiltratin 8mg Take 1 Univers (ZOFRAN) [...] nausea or vomiting (breakthro ugh). traMADol 2021-0 2021- No Infiltratin 50mg Take 1 Univers (Ultram) 50 8-21 11-30 g duct tablet (50 ity of mg tablet 00:00: 00:00 carcinoma mg) by [place] 00 :00 of right mouth MD female every 6 Anderso breast (six) n hours as Cancer needed for Center moderate pain (headache) . traMADol 2021-0 2021- No Infiltratin 50mg Take 1 Univers [...] acids/fish 11:33: mouth. [place] oil (fish 50 oil-omega-3 Anderso fatty n acids) Cancer 300-1,000 [...] 100-25 mg Anderso per tablet n Cancer Center acetaminoph Yes Take by Uni vers en 6-14 mouth as ity of (TYLENOL) 11:33: needed. [place] 500 mg 50 MD tablet Anderso n [facility] cyanocobala Yes Take by Uni vers min, 6-14 mouth. ity of vitamin 11:33: uJlee B-12, 50 (VITAMIN Anderso B-12 ORAL) n [...] hours as Cancer needed for Center itching. [facility] Yes Infiltratin Apply Univers ne 6-03 g duct topically ity of (KENALOG) 00:00: carcinoma to [place] 0.1% cream 00 of right affected M D female area(s) Anderso breast twice n daily. [facility] Yes Infiltratin Apply Univers ne 6-03 g duct topically ity of (KENALOG) 00:00: carcinoma to [place] as 0.1% cream 00 of right affected M D female area(s) Anderso breast twice n daily. [facility] Yes Infiltratin Apply Univers ne 6-03 g duct topically ity of (KENALOG) 00:00: carcinoma to [place] as 0.1% cream 00 of right affected M D female area(s) Anderso breast twice n daily. [facility] Yes Infiltratin Apply Univers ne 6-03 g duct topically ity of (KENALOG) 00:00: carcinoma to [place] as 0.1% cream 00 of right affected M D female area(s) Anderso breast twice n daily. [facility] lidocaine-p Yes Infiltratin Apply Univers rilocaine 5-24 g duct topically ity of (EMLA) 00:00: carcinoma to [place] 2.5-2.5% 00 of right affected MD cream female area(s) as [place] o breast needed for n mild pain. [facility] lidocaine-p Yes Infiltratin Apply Univers rilocaine 5-24 g duct topically ity of (EMLA) 00:00: carcinoma to [place] 2.5-2.5% 00 of right affected MD cream female area(s) as [place] o breast needed for n mild pain. [facility] lidocaine-p 2021- No Infiltratin Apply Univers rilocaine 5-24 12-09 g duct topically it y of (EMLA) 00:00: 00:00 carcinoma to [place] 2.5-2.5% 00 :00 of right affected MD cream female area(s) as [place] o breast needed for n mild pain. [facility] Center lidocaine-p 2021- No Infiltratin Apply Univers rilocaine 5-24 12-09 g duct topically it y of (EMLA) 00:00: 00:00 carcinoma to [place] 2.5-2.5% 00 :00 of right affected MD cream female area(s) as [place] o breast needed for n mild pain. [facility] prochlorper Yes Infiltratin 10mg Take 1 Univers azine 5-23 g duct tablet (10 ity of (Compazine) 00:00: carcinoma mg) by [place] 10 mg 00 of right mouth MD tablet female every 6 Anderso breast (six) n hours as Cancer needed for Center nausea or vomiting. prochlorper Yes Infiltratin 10mg Take 1 Univers [...] of mg tablet 00:00: carcinoma mg) [place] 00 of right mouth MD female every 6 Anderso breast (six) n hours as Cancer needed for Center moderate pain (headache) . prochlorper Yes Infiltratin 10mg Take 1 Univers azine 5-23 g duct tablet (10 ity of (Compazine) 00:00: carcinoma mg) by [place] 10 mg 00 of right mouth MD tablet female every 6 Anderso breast (six) n hours as Cancer needed for Center nausea or vomiting. traMADol 2021- No Infiltratin 50mg Take 1 Univers (Ultram) 50 5-23 12-02 g duct tablet (50 ity of mg tablet 00:00: 00:00 carcinoma mg) by [place] 00 :00 of right mouth MD female every 6 Anderso breast (six) n hours as Cancer needed for Center moderate pain (headache) . traMADol 2021- No Infiltratin 50mg Take 1 Univers (Ultram) 50 5-23 12-02 g duct tablet (50 ity of mg tablet 00:00: 00:00 carcinoma mg) by [place] 00 :00 of right mouth MD female [...] TAB 10:41: [place] 41 Medical Branch GLUCOSAMINE Yes 1-2 pills [...] a day ity of ORAL TAB 10:41: [place] [address] Medical Branch GLUCOSAMINE Yes 1-2 pills U nivers &CHONDROIT- 4-20 a day ity of MV-MIN3 10:41: [place] Medical 0.5 MG ORAL Branch TAB omega-3 Yes 1000mg Take 1,000 Un michelle fatty acids 4-20 mg by ity of (FISH OIL) 10:41: mouth [place] capsule 41 daily. Medical Branch ACETAMINOPH Yes 1-2 pills U nivers EN 500 MG 4-20 a day ity of ORAL TAB 10:41: [place] [address] Medical Branch GLUCOSAMINE Yes 1-2 pills U nivers &CHONDROIT- 4-20 a day ity of MV-MIN3 10:41: [place] Medical 0.5 MG ORAL Branch TAB omega-3 Yes 1000mg Take 1,000 Un michelle fatty acids 4-20 mg by ity of (FISH OIL) 10:41: mouth [place] capsule 41 daily. Medical Branch ACETAMINOPH Yes 1-2 pills U nivers EN 500 MG 4-20 a day ity of ORAL TAB 10:41: [place] [address] Medical Branch GLUCOSAMINE Yes 1-2 pills U nivers &CHONDROIT- 4-20 a day ity of MV-MIN3 10:41: [place] Medical 0.5 MG ORAL Branch TAB ASPIRIN 81 Yes 1 PO daily U nivers MG ORAL 4-20 ity of CHEW 10:41: [place] [address] Medical Branch cholecalcif Yes 1{capsu Take 1 U nivers adeel, 4-20 le} capsule by ity of vitamin D3, 10:41: mouth [place] (VITAMIN 41 daily. Medical D3) 4,000 Branch unit Cap omega-3 Yes 1000mg Take 1,000 Un michelle fatty acids 4-20 mg by ity of (FISH OIL) 10:41: mouth [place] capsule 41 daily. Medical Branch ACETAMINOPH Yes 1-2 pills U nivers EN 500 MG 4-20 a day ity of ORAL TAB 10:41: [place] [address] Medical Branch GLUCOSAMINE Yes 1-2 pills U nivers &CHONDROIT- 4-20 a day ity of MV-MIN3 10:41: [place] 300 Medical 0.5 MG ORAL Branch TAB ASPIRIN 81 0 Yes 1 PO daily U nivers MG ORAL 4-20 ity of CHEW 10:41: [address] Branch cholecalcif Yes 1{capsu Take 1 U nivers adeel, 4-20 le} capsule by ity of vitamin D3, 10:41: mouth [place] (VITAMIN 41 daily. Medical D3) 4,000 Branch unit Cap omega-3 Yes 1000mg Take 1,000 Un michelle fatty acids 4-20 mg by ity of (FISH OIL) 10:41: mouth [place] capsule 41 daily. Medical Branch ACETAMINOPH Yes 1-2 pills U nivers EN 500 MG 4-20 a day ity of ORAL TAB 10:41: [place] [address] Medical Branch GLUCOSAMINE Yes 1-2 pills U nivers &CHONDROIT- 4-20 a day ity of MV-MIN3 10:41: [place] 300 Medical 0.5 MG ORAL Branch TAB ASPIRIN 81 0 Yes 1 PO daily U nivers MG ORAL 4-20 ity of CHEW 10:41: [address] cholecalcif Yes 1{capsu Take 1 U nivers adeel, 4-20 le} capsule by ity of vitamin D3, 10:41: mouth [place] (VITAMIN 41 daily. Medical D3) 4,000 Branch unit Cap omega-3 Yes 1000mg Take 1,000 Un michelle fatty acids 4-20 mg by ity of (FISH OIL) 10:41: mouth [place] capsule 41 daily. Medical Branch ACETAMINOPH Yes 1-2 pills U nivers EN 500 MG 4-20 a day ity of ORAL TAB 10:41: [place] [address] Medical Branch GLUCOSAMINE Yes 1-2 pills U nivers &CHONDROIT- 4-20 a day ity of MV-MIN3 10:41: [place] 300- Medical 0.5 MG ORAL Branch TAB omega-3 Yes 1000mg Take 1,000 Un michelle fatty acids 4-20 mg by ity of (FISH OIL) 10:41: mouth [place] capsule 41 daily. Medical Branch ACETAMINOPH Yes 1-2 pills U nivers EN 500 MG 4-20 a day ity of ORAL TAB 10:41: Medical Branch GLUCOSAMINE Yes 1-2 pills U nivers &CHONDROIT- 4-20 a day ity of MV-MIN3 10:41: [place] Medical 0.5 MG ORAL Branch TAB omega-3 Yes 1000mg Take 1,000 Un michelle fatty acids 4-20 mg by ity of (FISH OIL) 10:41: mouth [place] capsule 41 daily. Medical Branch ACETAMINOPH Yes 1-2 pills U nivers EN 500 MG 4-20 a day ity of ORAL TAB 10:41: [place] Medical Branch GLUCOSAMINE Yes 1-2 pills U nivers &CHONDROIT- 4-20 a day ity of MV-MIN3 10:41: [place] Medical 0.5 MG ORAL Branch TAB omega-3 Yes 1000mg Take 1,000 Un michelle fatty acids 4-20 mg by ity of (FISH OIL) 10:41: mouth [place] capsule 41 daily. Medical Branch ACETAMINOPH Yes 1-2 pills U nivers EN 500 MG 4-20 a day ity of ORAL TAB 10:41: [place] Medical Branch GLUCOSAMINE Yes 1-2 pills U nivers &CHONDROIT- 4-20 a day ity of MV-MIN3 10:41: [place] Medical 0.5 MG ORAL Branch TAB omega-3 Yes 1000mg Take 1,000 Un michelle fatty acids 4-20 mg by ity of (FISH OIL) 10:41: mouth [place] capsule 41 daily. Medical Branch ACETAMINOPH Yes 1-2 pills U nivers EN 500 MG 4-20 a day ity of ORAL TAB 10:41: [place] Medical Branch GLUCOSAMINE Yes 1-2 pills U nivers &CHONDROIT- 4-20 a day ity of MV-MIN3 10:41: [place] Medical 0.5 MG ORAL Branch TAB omega-3 [...] (scale 7-10). Indication s: acute pain HYDROcodone Yes 4647 1{tbl} Take 1 Un michelle -acetaminop 4-12 tablet by ity of hen (NORCO) 00:00: mouth [place] 5-325 mg 00 every 6 Medical tablet (six) Branch hours as needed for Pain (scale 7-10). Indication s: acute pain HYDROcodone 2021- Yes 4647 1{tbl} Take 1 Un michelle -acetaminop 4-12 tablet by ity of hen (NORCO) 00:00: mouth [place] 5-325 mg 00 every 6 Medical tablet (six) Branch hours as needed for Pain (scale 7-10). Indication s: acute pain HYDROcodone Yes 4647 1{tbl} Take 1 Un michelle -acetaminop 4-12 tablet by ity of hen (NORCO) 00:00: mouth [place] 5-325 mg 00 every 6 Medical tablet (six) Branch hours as needed for Pain (scale 7-10). Indication s: acute pain HYDROcodone Yes 4647 1{tbl} Take 1 Un [...] (scale 7-10). Indication s: acute pain HYDROcodone Yes 4647 1{tbl} Take 1 Un [...] 00 NEEDED MD mcg/puff [place] inhaler n [facility] albuterol Yes INHALE 1 Univ ers (VENTOLIN 3-29 PUFF EVERY ity of HFA,PROAIR 00:00: 6-8 HOURS [place] HFA) 90 00 NEEDED MD mcg/puff [place] inhaler n [facility] albuterol Yes INHALE 1 Univ ers (VENTOLIN 3-29 PUFF EVERY ity of HFA,PROAIR 00:00: 6-8 HOURS [place] HFA) 90 00 NEEDED MD mcg/puff Anderso inhaler n [facility] albuterol Yes INHALE 1 Univ ers (VENTOLIN 3-29 PUFF EVERY ity of HFA,PROAIR 00:00: 6-8 HOURS [place] HFA) 90 00 NEEDED MD mcg/puff [place]o inhaler n [facility] cetirizine Yes [id number] 10mg Take 1 U nivers (ZYRTEC) 10 3-28 tablet by ity of mg tablet 00:00: mouth [place] 00 daily. Medical Branch guaiFENesin Yes [id number] 600mg Take 1 Univers (MUCINEX) 3-28 tablet by ity o f 600 mg 00:00: mouth [place] tablet 00 every 12 Medical (twelve) Branch hours. cetirizine Yes [id number] 10mg Take 1 U nivers (ZYRTEC) 10 3-28 tablet by ity of mg tablet 00:00: mouth [place] 00 daily. Medical Branch guaiFENesin Yes [id number] 600mg Take 1 Univers (MUCINEX) 3-28 tablet by ity o f 600 mg 00:00: mouth [place] tablet 00 every 12 Medical (twelve) Branch hours. cetirizine 2021-0 Yes [id number] 10mg Take 1 U nivers (ZYRTEC) 10 3-28 tablet by ity of mg tablet 00:00: mouth [place] 00 daily. Medical Branch guaiFENesin 2021-0 Yes [id number] 600mg Take 1 Univers (MUCINEX) 3-28 tablet by ity o f 600 mg 00:00: mouth [place] tablet 00 every 12 Medical (twelve) Branch hours. cetirizine 2021-0 Yes [id number] 10mg Take 1 U nivers (ZYRTEC) 10 3-28 tablet by ity of mg tablet 00:00: mouth [place] 00 daily. [facility] Branch guaiFENesin 0 Yes [id number] 600mg Take 1 Univers (MUCINEX) 3-28 tablet by ity o f 600 mg 00:00: mouth [place] tablet 00 every 12 Medical (twelve) Branch hours. cetirizine 2021-0 Yes [id number] 10mg Take 1 U nivers (ZYRTEC) 10 3-28 tablet by ity of mg tablet 00:00: mouth [place] 00 daily. Medical Branch guaiFENesin 2021-0 Yes [id number] 600mg Take 1 Univers (MUCINEX) 3-28 tablet by ity o f 600 mg 00:00: mouth [place] tablet 00 every 12 Medical (twelve) Branch hours. cetirizine 2021-0 Yes [id number] 10mg Take 1 U nivers (ZYRTEC) 10 3-28 tablet by ity of mg tablet 00:00: mouth [place] 00 daily. [facility] Branch guaiFENesin 2021-0 Yes [id number] 600mg Take 1 Univers (MUCINEX) 3-28 tablet by ity o f 600 mg 00:00: mouth [place] tablet 00 every 12 Medical (twelve) Branch hours. cetirizine 2021-0 Yes [id number] 10mg Take 1 U nivers (ZYRTEC) 10 3-28 tablet by ity of mg tablet 00:00: mouth [place] 00 daily. [facility] Branch guaiFENesin 2021-0 Yes [id number] 600mg Take 1 Univers (MUCINEX) 3-28 tablet by ity o f 600 mg 00:00: mouth [place] tablet 00 every 12 Medical (twelve) Branch hours. cetirizine 2021-0 Yes [id number] 10mg Take 1 U nivers (ZYRTEC) 10 3-28 tablet by ity of mg tablet 00:00: mouth [place] 00 daily. Medical Branch guaiFENesin 2021-0 Yes [id number] 600mg Take 1 Univers (MUCINEX) 3-28 tablet by ity o f 600 mg 00:00: mouth [place] tablet 00 every 12 Medical (twelve) Branch hours. cetirizine 2021-0 Yes [id number] 10mg Take 1 U nivers (ZYRTEC) 10 3-28 tablet by ity of mg tablet 00:00: mouth [place] 00 daily. Medical Branch guaiFENesin 2021-0 Yes [id number] 600mg Take 1 Univers (MUCINEX) 3-28 tablet by ity o f 600 mg 00:00: mouth [place] tablet 00 every 12 Medical (twelve) Branch hours. cetirizine 2021-0 Yes [id number] 10mg Take 1 U nivers (ZYRTEC) 10 3-28 tablet by ity of mg tablet 00:00: mouth [place] 00 daily. Medical Branch guaiFENesin 2021-0 Yes [id number] 600mg Take 1 Univers (MUCINEX) 3-28 tablet by ity o f 600 mg 00:00: mouth [place] tablet 00 every 12 Medical (twelve) Branch hours. cetirizine 2021-0 Yes [id number] 10mg Take 1 U nivers (ZYRTEC) 10 3-28 tablet by ity of mg tablet 00:00: mouth [place] 00 daily. Medical Branch guaiFENesin 2021-0 Yes [id number] 600mg Take 1 Univers (MUCINEX) 3-28 tablet by ity o f 600 mg 00:00: mouth [place] tablet 00 every 12 Medical (twelve) Branch hours. cetirizine 2021-0 Yes [id number] 10mg Take 1 U nivers (ZYRTEC) 10 3-28 tablet by ity of mg tablet 00:00: mouth [place] 00 daily. Medical Branch guaiFENesin 2021-0 Yes [id number] 600mg Take 1 Univers (MUCINEX) 3-28 tablet by ity o f 600 mg 00:00: mouth [place] tablet 00 every 12 Medical (twelve) Branch hours. cetirizine 2021-0 Yes [id number] 10mg Take 1 U nivers (ZYRTEC) 10 3-28 tablet by ity of mg tablet 00:00: mouth [place] 00 daily. Medical Branch guaiFENesin 2021-0 Yes [id number] 600mg Take 1 Univers (MUCINEX) 3-28 tablet by ity o f 600 mg 00:00: mouth [place] tablet 00 every 12 Medical (twelve) Branch hours. cetirizine 2021-0 Yes [id number] 10mg Take 1 U nivers (ZYRTEC) 10 3-28 tablet by ity of mg tablet 00:00: mouth [place] 00 daily. Medical Branch guaiFENesin 2021-0 Yes [id number] 600mg Take 1 Univers (MUCINEX) 3-28 tablet by ity o f 600 mg 00:00: mouth [place] tablet 00 every 12 Medical (twelve) Branch hours. cetirizine 2021-0 Yes [id number] 10mg Take 1 U nivers (ZYRTEC) 10 3-28 tablet by ity of mg tablet 00:00: mouth [place] 00 daily. Medical Branch guaiFENesin 2021-0 Yes [id number] 600mg Take 1 Univers (MUCINEX) 3-28 tablet by ity o f 600 mg 00:00: mouth [place] tablet 00 every 12 Medical (twelve) Branch hours. cetirizine 2021-0 Yes [id number] 10mg Take 1 U nivers (ZYRTEC) 10 3-28 tablet by ity of mg tablet 00:00: mouth [place] 00 daily. Medical Branch guaiFENesin 2021-0 Yes [id number] 600mg Take 1 Univers (MUCINEX) 3-28 tablet by ity o f 600 mg 00:00: mouth [place] tablet 00 every 12 Medical (twelve) Branch hours. cetirizine 2021-0 Yes [id number] 10mg Take 1 U nivers (ZYRTEC) 10 3-28 tablet by ity of mg tablet 00:00: mouth [place] 00 daily. Medical Branch guaiFENesin 2021-0 Yes [id number] 600mg Take 1 Univers (MUCINEX) 3-28 tablet by ity o f 600 mg 00:00: mouth [place] tablet 00 every 12 Medical (twelve) Branch hours. cetirizine 2-0 Yes [id number] 10mg Take 1 U nivers (ZYRTEC) 10 3-28 tablet by ity of mg tablet 00:00: mouth [place] 00 daily. Medical Branch guaiFENesin 2021-0 Yes [id number] 600mg Take 1 Univers (MUCINEX) 3-28 tablet by ity o f 600 mg 00:00: mouth [place] tablet 00 every 12 Medical (twelve) Branch hours. cetirizine 2-0 Yes [id number] 10mg Take 1 U nivers (ZYRTEC) 10 3-28 tablet by ity of mg tablet 00:00: mouth [place] 00 daily. Medical Branch guaiFENesin 2021-0 Yes [id number] 600mg Take 1 Univers (MUCINEX) 3-28 tablet by ity o f 600 mg 00:00: mouth [place] tablet 00 every 12 Medical (twelve) Branch hours. cetirizine 2021-0 Yes [id number] 10mg Take 1 U nivers (ZYRTEC) 10 3-28 tablet by ity of mg tablet 00:00: mouth [place] 00 daily. Medical Branch guaiFENesin 2021-0 Yes [id number] 600mg Take 1 Univers (MUCINEX) 3-28 tablet by ity o f 600 mg 00:00: mouth [place] tablet 00 every 12 Medical (twelve) Branch hours. nitroglycer 2020-[address] 1 Uni vers in 0.4 mg 0-22 tablet ity of sublingual 00:00: [place] tablet 00 tongue Medical every 5 Branch (five) minutes as needed for Chest pain. nitroglycer [address] 1 Uni vers in 0.4 mg 0-22 tablet ity of sublingual 00:00: [place] the [place] tablet 00 tongue Medical every 5 Branch (five) minutes as needed for Chest pain. nitroglycer [address] 1 Uni vers in 0.4 mg 0-22 tablet ity of sublingual 00:00: [place] tablet 00 tongue Medical every 5 Branch (five) minutes as needed for Chest pain. nitroglycer [address] 1 Uni vers in [...] minutes as needed for Chest pain. nitroglycer [address] 1 Uni vers in [...] mg under ity of (NITROSTAT) 00:00: the [place] 0.4 mg SL 00 tongue. MD yepez [facility] nitroglycer 2020-[address] 0.4 U nivers in 0-22 mg under ity of (NITROSTAT) 00:00: the [place] 0.4 mg SL 00 tongue. MD yepez [facility] nitroglycer 2020-[address] 0.4 U nivers in 0-22 mg under ity of (NITROSTAT) 00:00: the [place] 0.4 mg SL 00 tongue. tablet [facility] nitroglycer 2020-[address] 0.4 U nivers in 0-22 mg under ity of (NITROSTAT) 00:00: the [place] 0.4 mg SL 00 tongue. MD yepez [facility] amLODIPine Yes [id number] 5mg Take 1 U nivers 5 mg tablet 9-08 tablet by ity of 00:00: mouth [place] 00 daily. Medical Branch atorvastati Yes [id number] 20mg Take 1 Univers n 20 mg 9-08 tablet by ity of tablet 00:00: mouth [place] 00 daily. Medical Branch amLODIPine Yes [id number] 5mg Take 1 U nivers 5 mg tablet 9-08 tablet by ity of 00:00: mouth [place] 00 daily. Medical Branch amLODIPine Yes [id number] 5mg Take 1 U nivers 5 mg tablet 9-08 tablet by ity of 00:00: mouth [place] 00 daily. Medical Branch amLODIPine Yes [id number] 5mg Take 1 U nivers 5 mg tablet 9-08 tablet by ity of 00:00: mouth [place] 00 daily. [facility] Branch atorvastati Yes 20mg Take 1 Univ ers n (LIPITOR) 9-08 tablet (20 it y of 20 mg 00:00: mg) by [place] tablet 00 mouth [place] bedtime. [facility] atorvastati Yes 20mg Take 20 mg Univers n (LIPITOR) -08 by mouth ity of 20 mg 00:00: at [place] tablet 00 bedtime. [facility] atorvastati Yes 20mg Take 20 mg Univers n (LIPITOR) 9-08 by mouth ity of 20 mg 00:00: at [place] tablet 00 bedtime. [facility] atorvastati Yes 20mg Take 1 Univ ers n (LIPITOR) 9-08 tablet (20 it y of 20 mg 00:00: mg) by [place] tablet 00 [place] bedtime. [facility] amLODIPine 3- No [id number] 5mg Take 1 Univers 5 mg tablet 03-01 tablet by it y of 00:00: 00:00 mouth [place] 00 :00 daily. Medical Branch amLODIPine 0 2022- No [id number] 5mg Take 1 Univers 5 mg tablet 03-01 tablet by it y of 00:00: 00:00 mouth [place] 00 :00 daily. Medical Branch amLODIPine 0 2022- No [id number] 5mg Take 1 Univers 5 mg tablet 03-01 tablet by it y of 00:00: 00:00 mouth [place] 00 :00 daily. Medical Branch atorvastati 2022- No [id number] 20mg Take 1 Univers n 20 mg 03-01 tablet by ity of tablet 00:00: 00:00 mouth [place] 00 :00 daily. Medical Branch hydroCHLORO 2021- No [id number] 25mg Take 1 Univers thiazide 25 03-0120 tablet by it y of mg tablet [...] by ity of tablet 00:00: mouth 2 (two) Medical times Branch daily with meals. [...] by ity of tablet 00:00: mouth 2 (two) Medical times Branch daily with meals. methylPREDN 2017-0 Yes 84mg Take 21 Uni vers ISolone 4-05 tablets by ity of (MEDROL, 00:00: mouth [place] LEIGH,) 4 mg 00 SEE-INSTRU Med ical tablets CTIONS. Branch follow package directions diclofenac 2017-0 Yes 75mg Take 1 Unive rs 75 mg EC 4-05 tablet by ity of tablet 00:00: mouth 2 (two) Medical times Branch daily with meals. acetaminoph 2017 Yes 1 - 2 by Un michelel en-codeine -11 mouth ity of (TYLENOL-CO 00:00: every 4-6 [place] DEINE #3) 00 hours as Medica l 300-30 mg needed for Bran ch tablet pain acetaminoph Yes 1 - 2 by Un michelle en-codeine -11 mouth ity of (TYLENOL-CO 00:00: every 4-6 [place] DEINE #3) 00 hours as Medica l 300-30 mg needed for Bran ch tablet pain acetaminoph Yes 1 - 2 by Un michelle en-codeine -11 mouth ity of (TYLENOL-CO 00:00: every 4-6 [place] DEINE #3) 00 hours as Medica l 300-30 mg needed for Bran ch tablet pain acetaminoph Yes 1 - 2 by Un michelle en-codeine -11 mouth ity of (TYLENOL-CO 00:00: every 4-6 [...] needed for Bran ch tablet pain acetaminoph 2017-0 Yes 1 - 2 by Un michelle en-codeine 1-11 mouth ity of (TYLENOL-CO 00:00: every 4-6 [place] DEINE #3) 00 hours as Medica l 300-30 mg needed for Bran ch tablet pain acetaminoph 2017-0 Yes 1 - 2 by Un michelle en-codeine 1-11 mouth ity of (TYLENOL-CO 00:00: every 4-6 [place] DEINE #3) 00 hours as Medica l 300-30 mg needed for Bran ch tablet pain acetaminoph 2017-0 Yes 1 - 2 by Un michelle en-codeine 1-11 mouth ity of (TYLENOL-CO 00:00: every 4-6 [place] DEINE #3) 00 hours as Medica l 300-30 mg needed for Bran ch tablet pain acetaminoph 2017-0 Yes 1 - 2 by Un michelle en-codeine 1-11 mouth ity of (TYLENOL-CO 00:00: every 4-6 [place] DEINE #3) 00 hours as Medica l 300-30 mg needed for Bran ch tablet pain acetaminoph 2017-0 Yes 1 - 2 by Un michelle en-codeine 1-11 mouth ity of (TYLENOL-CO 00:00: every 4-6 [place] DEINE #3) 00 hours as Medica l 300-30 mg needed for Bran ch tablet pain acetaminoph 2017-0 Yes 1 - 2 by Un michelle en-codeine 1-11 mouth ity of (TYLENOL-CO 00:00: every 4-6 [place] DEINE #3) 00 hours as Medica l 300-30 mg needed for Bran ch tablet pain acetaminoph 2017-0 Yes 1 - 2 by Un michelle en-codeine 1-11 mouth ity of (TYLENOL-CO 00:00: every 4-6 [place] DEINE #3) 00 hours as Medica l 300-30 mg needed for Bran ch tablet pain acetaminoph 2017-0 Yes 1 - 2 by [...] needed for Bran ch tablet pain traMADOL 2016-0 Yes Univers (ULTRAM) 50 9-02 ity of mg tablet 00:00: [place] [facility] traMADOL 2016-0 Yes Univers (ULTRAM) 50 9-02 ity of mg tablet 00:00: Medical Branch traMADOL 2016-0 Yes Univers (ULTRAM) 50 9-02 ity of mg tablet 00:00: Medical Branch traMADOL 2016-0 Yes Univers (ULTRAM) 50 9-02 ity of mg tablet 00:00: [place] [facility] traMADOL 20160 Yes Univers (ULTRAM) 50 9-02 ity of mg tablet 00:00: [place] [facility] traMADOL 20160 Yes Univers (ULTRAM) 50 9-02 ity of mg tablet 00:00: [place] [facility] traMADOL 20160 Yes Univers (ULTRAM) 50 9-02 ity of mg tablet 00:00: [place] [facility] traMADOL 20160 Yes Univers (ULTRAM) 50 9-02 ity of mg tablet 00:00: [place] [facility] traMADOL 20160 Yes Univers (ULTRAM) 50 9-02 ity of mg tablet 00:00: [place] [facility] traMADOL 20160 Yes Univers (ULTRAM) 50 9-02 ity of mg tablet 00:00: [place] [facility] Branch traMADOL 20160 Yes Univers (ULTRAM) 50 9-02 ity of mg tablet 00:00: [place] [facility] Branch traMADOL 2016 Yes Univers (ULTRAM) 50 9-02 ity of mg tablet 00:00: [place] [facility] Branch traMADOL 20160 Yes Univers (ULTRAM) 50 9-02 ity of mg tablet 00:00: [place] [facility] Branch traMADOL 20160 Yes Univers (ULTRAM) 50 9-02 ity of mg tablet 00:00: [place] [facility] Branch traMADOL 20160 Yes Univers (ULTRAM) 50 9-02 ity of mg tablet 00:00: [place] [facility] Branch traMADOL 20160 Yes Univers (ULTRAM) 50 9-02 ity of mg tablet 00:00: [place] [facility] Branch traMADOL 20160 Yes Univers (ULTRAM) 50 9-02 ity of mg tablet 00:00: [place] [facility] traMADOL 20160 Yes Univers (ULTRAM) 50 9-02 ity of mg tablet 00:00: [place] [facility] traMADOL 20160 Yes Univers (ULTRAM) 50 9-02 ity of mg tablet 00:00: [place] [facility] traMADOL 20160 Yes Univers (ULTRAM) 50 9-02 ity of mg tablet 00:00: [address] albuterol albuterol No albuterol [place] [...] nasal spray nasal Group aerosol aerosol spray [place] 1 [place] aerosol spray every spray every [place] 1 day by day by spray intranasal [...] nasal mcg/actuat spray,suspe spray,suspe ion nasal nsion [place] nsion [place] spray,susp 1 spray 1 spray ension every day every day [place] 1 by by spray intranasal intranasal every [...] Source Systolic blood 2022-11-13 20:47:00 108 mm[Hg] [facility] [place] [facility] Diastolic blood 2022-11-13 20:47:00 68 mm[Hg] [facility] Heart rate 2022-11-13 20:47:00 92 /min [facility] Respiratory rate 2022-11-13 20:47:00 18 /min [facility] [place] [facility] height 2022-11-13 20:47:[address] [facility] Body weight 2022-11-13 20:47:[address] [facility] BMI 2022-11-13 20:47:00 30.87 kg/m2 Universi ty of [place] [facility] Oxygen saturation in 2022-11-13 20:47:00 96 /min University of Arterial blood by [facility] Pulse oximetry Branch BP Diastolic 2022-09-19 00:00:00 84 mm[Hg] [facility] Height 2022-09-19 00:00:00 68 [in_i] [facility] BMI (Body Mass 2022-09-19 00:00:00 31.3 kg/m2 [facility] Group BP Systolic 2022-09-19 00:00:00 127 mm[Hg] [facility] Body Weight 2022-09-19 00:00:00 205.8 [lb_av] [facility] Systolic blood 2022-09-03 20:24:00 116 mm[Hg] Univer sity of pressure [place] [facility] Diastolic blood 2022-09-03 20:24:00 69 mm[Hg] Unive rsity of pressure [place] [facility] Heart rate 2022-09-03 20:24:00 60 /min Universi ty of [place] [facility] Respiratory rate 2022-09-03 20:24:00 18 /min Univ ersity of [place] [facility] Body height 2022-09-03 20:24:00 172.7 cm Universi ty [facility] [place] [facility] Body weight 2022-09-03 20:24:00 92.942 kg Universi ty [facility] [place] [facility] BMI 2022-09-03 20:24:00 31.15 kg/m2 Universi ty of [place] [facility] Oxygen saturation in 2022-09-03 20:24:00 98 /min University of Arterial blood by [facility] Pulse oximetry Branch Systolic blood 2021-10-10 19:49:00 142 mm[Hg] Univer sity of pressure [place] [facility] Diastolic blood 2021-10-10 19:49:00 82 mm[Hg] Unive rsity of pressure [place] [facility] Heart rate 2021-10-10 19:47:00 60 /min Universi ty [facility] [place] [facility] Respiratory rate 2021-10-10 19:47:00 18 /min Univ ersity of [place] [facility] Body height 2021-10-10 19:47:00 172.7 cm Universi ty of [place] [facility] Body weight 2021-10-10 19:47:00 102.059 kg Universi ty of [place] [facility] BMI 2021-10-10 19:47:00 34.21 kg/m2 Universi ty of [facility] Oxygen saturation in 2021-10-10 19:47:00 98 /min University of Arterial blood by [facility] Pulse oximetry Branch Systolic blood 2021-10-10 19:49:00 142 mm[Hg] Univer sity of pressure [place] [facility] Diastolic blood 2021-10-10 19:49:00 82 mm[Hg] Unive rsity of pressure [facility] Branch Heart rate 2021-10-10 19:47:00 60 /min Universi ty of [place] [facility] Respiratory rate 2021-10-10 19:47:00 18 /min Univ ersity of [facility] Body height 2021-10-10 19:47:00 172.7 cm Universi ty of [place] [facility] Body weight 2021-10-10 19:47:00 102.059 kg Universi ty [facility] [place] [facility] BMI 2021-10-10 19:47:00 34.21 kg/m2 Universi ty [facility] [place] [facility] Oxygen saturation in 2021-10-10 19:47:00 98 /min University of Arterial blood by [facility] Pulse oximetry Branch Systolic blood 2023-04-15 16:30:42 144 mm[Hg] Univer sitjuana of pressure [facility] Diastolic blood 2023-04-15 16:30:42 81 mm[Hg] Unive rsity of pressure [facility] Heart rate 2023-04-15 16:30:42 54 /min Universi ty of [facility] Body temperature 2023-04-15 16:30:42 36.61 [place] Univ ersity of [facility] Respiratory rate 2023-04-15 16:30:42 18 /min Univ ersity of [facility] Body weight 2023-03-04 16:43:05 94.4 kg Universi ty of [facility] BMI 2023-03-04 16:43:05 33.85 kg/m2 Universi ty of [facility] Oxygen saturation in 2023-01-29 17:15:24 99 /min University of Arterial blood by [facility] myleson Pulse oximetry [facility] Systolic blood 2022-11-20 16:19:30 143 mm[Hg] Univer [...] 16:19:30 16 /min Univ ersity of [facility] Body weight 2022-11-20 16:19:30 93.8 kg Universi ty of [facility] BMI 2022-11-20 16:19:30 33.63 kg/m2 Universi ty of [facility] Oxygen saturation in 2022-06-01 15:37:30 98 /min University of Arterial blood by [facility] watsonrson Pulse oximetry [facility] Body height 2022-05-25 [...] 2022-01-02 20:45:00 62 /min Universi ty of [place] [facility] Body temperature 2022-01-02 19:17:00 36.5 [place] [facility] Respiratory rate 2022-01-02 19:17:00 17 /min [facility] [place] [facility] Body weight 2022-01-02 19:17:00 98.3 kg Universi ty of [facility] BMI 2022-01-02 19:17:00 34.22 kg/m2 Universi ty [facility] MD [facility] Oxygen saturation in 2021-11-21 19:08:30 99 /min University of Arterial blood by [facility] muse Pulse oximetry [facility] Center Body height 2021-11-14 18:40:00 169.5 cm Universi ty of [place] [facility] 02 Sat by Pulse 2020-09-12 13:40:28 100 /min Oximetry BMI more than 35 2020-09-12 13:40:28 N Body Mass Index 2020-09-12 13:40:28 34.7 Height 2020-09-12 13:40:28 172.72\\S\\68 Pulse Rate 2020-09-12 13:40:28 60 /min Pulse Strength 2020-09-12 13:40:28 Normal /min Pulse Rhythm 2020-09-12 13:40:28 Regular /min Respiratory Rate 2020-09-12 13:40:28 18 /min Weight 2020-09-12 13:40:28 904014.06\\S\\3648 Weight Measurement 2020-09-12 13:40:28 Standing Scale Method 02 Sat by Pulse 2020-09-10 00:09:06 100 /min Oximetry BMI more than 35 2020-09-10 00:09:06 N Body Mass Index 2020-09-10 00:09:06 34.7 Height 2020-09-10 00:09:06 172.72\\S\\68 Pulse Rate 2020-09-10 00:09:06 60 /min Pulse Strength 2020-09-10 00:09:06 Normal /min Pulse Rhythm 2020-09-10 00:09:06 Regular /min Respiratory Rate 2020-09-10 00:09:06 18 /min Weight 2020-09-10 00:09:06 215047.06\\S\\3648 Weight Measurement 2020-09-10 00:09:06 Standing Scale Method 02 Sat by Pulse 2020-09-10 00:09:05 100 /min Oximetry BMI more than 35 2020-09-10 00:09:05 N Body Mass Index 2020-09-10 00:09:05 34.7 Height 2020-09-10 00:09:05 172.72\\S\\68 Pulse Rate 2020-09-10 00:09:05 60 /min Pulse Strength 2020-09-10 00:09:05 Normal /min Pulse Rhythm 2020-09-10 00:09:05 Regular /min Respiratory Rate 2020-09-10 00:09:05 18 /min Weight 2020-09-10 00:09:05 513800.06\\S\\3648 Weight Measurement 2020-09-10 00:09:05 Standing Scale Method 02 Sat by Pulse 2020-09-09 15:07:53 100 /min Oximetry BMI more than 35 2020-09-09 15:07:53 N Body Mass Index 2020-09-09 15:07:53 34.7 Height 2020-09-09 15:07:53 172.72\\S\\68 Pulse Rate 2020-09-09 15:07:53 60 /min Pulse Strength 2020-09-09 15:07:53 Normal /min Pulse Rhythm 2020-09-09 15:07:53 Regular /min Respiratory Rate 2020-09-09 15:07:53 18 /min Weight 2020-09-09 15:07:53 660802.06\\S\\3648 Weight Measurement 2020-09-09 15:07:53 Standing Scale Method [...] 2020-09-09 09:56:28 18 /min Weight 2020-09-09 09:56:28 122133.06\\S\\3648 Weight Measurement 2020-09-09 09:56:28 Standing Scale Method WEIGHT 2020-09-09 09:40:00 103.19385 kg HEIGHT 2020-09-09 09:40:00 172.72 cm Body Mass Index 2020-09-09 06:42:15 7418087.4 Height 2020-09-09 06:42:15 1\\S\\0.39 Weight 2020-09-09 06:42:15 734570.206\\S\\3760 Body Mass Index 2020-09-08 10:27:34 8381118.4 Height 2020-09-08 10:27:34 1\\S\\0.39 Weight 2020-09-08 10:27:34 811549.206\\S\\3760 WEIGHT 2020-09-08 10:27:00 106.722841 kg HEIGHT 2020-09-08 10:27:00 1 cm Procedures Procedure Date / Time Performing Source Performed Clinician COMPLETE BLOOD COUNT W/ 2023-04-15 16:12:00 Danisha Arias [facility] COMPREHENSIVE METABOLIC 2023-04-15 16:12:00 Danisha Arias [facility] .CBC 2023-04-15 16:12:00 Danisha Arias [place] [facility] COMPREHENSIVE METABOLIC 2023-03-04 16:11:00 Risa Aguilera [facility] COMPLETE BLOOD COUNT W/ 2023-03-04 16:11:00 Risa Aguilera [facility] GLUCOSE LEVEL 2023-03-04 16:11:00 Risa Aguilera [facility] BLOOD UREA NITROGEN 2023-03-04 16:11:00 Risa Aguilera [facility] ELECTROLYTE PANEL 2023-03-04 16:11:00 Risa Aguilera [facility] SERUM CREATININE 2023-03-04 16:11:00 Risa Aguilera [facility] .GLOMERULAR FILTRATION RATE 2023-03-04 16:11:00 Risa Aguilera [facility] CALCIUM LEVEL 2023-03-04 16:11:00 Risa Aguilera [facility] ALBUMIN LEVEL 2023-03-04 16:11:00 Risa Aguilera [facility] ALKALINE PHOSPHATASE 2023-03-04 16:11:00 Risa Aguilera [facility] ALANINE AMINOTRANSFERASE 2023-03-04 16:11:00 Risa Aguilera [facility] ASPARTATE AMINOTRANSFERASE 2023-03-04 16:11:00 [facility] T[facility] PROTEIN 2023-03-04 16:11:00 Risa Aguilera [facility] FRACTIONATED BILIRUBIN 2023-03-04 16:11:00 Risa Aguilera [facility] .CBC 2023-03-04 16:11:00 Risa Aguilera [facility] DIFFERENTIAL 2023-03-04 16:11:00 Risa Aguilera [facility] EXTERNAL MAMMOGRAM 2023-01-29 16:31:00 Doctor Unassigned, [facility] MAMMO DIGITAL DIAGNOSTIC 2023-01-29 16:14:00 Maylin, [place] [facility] [place] BILATERAL W HOWARD Holguin [facility] COMPREHENSIVE METABOLIC 2023-01-14 16:21:00 Risa Aguilera [facility] PANEL [facility] COMPLETE BLOOD COUNT W/ 2023-01-14 16:21:00 Risa Aguilera [facility] GLUCOSE LEVEL 2023-01-14 16:21:00 Risa Aguilera [facility] BLOOD UREA NITROGEN 2023-01-14 16:21:00 Risa Aguilera [facility] ELECTROLYTE PANEL 2023-01-14 16:21:00 Risa Aguilera [facility] SERUM CREATININE 2023-01-14 16:21:00 Risa Aguilera [facility] .GLOMERULAR FILTRATION RATE 2023-01-14 16:21:00 Risa Aguilera [facility] CALCIUM LEVEL 2023-01-14 16:21:00 Risa Aguilera [facility] ALBUMIN LEVEL 2023-01-14 16:21:00 Risa Aguielra [facility] ALKALINE PHOSPHATASE 2023-01-14 16:21:00 Risa Aguilera [facility] ALANINE AMINOTRANSFERASE 2023-01-14 16:21:00 Risa Aguilera [facility] ASPARTATE AMINOTRANSFERASE 2023-01-14 16:21:00 [facility] TOTAL PROTEIN 2023-01-14 16:21:00 Risa Aguilera [facility] FRACTIONATED BILIRUBIN 2023-01-14 16:21:00 Risa Aguilera [facility] .CBC 2023-01-14 16:21:00 Risa Aguilera [facility] DIFFERENTIAL 2023-01-14 16:21:00 Risa Aguilera [facility] US ARM VENOUS DOPPLER RIGHT 2022-12-28 19:27:27 Risa Aguilera [facility] XR FOREARM 2 VW RIGHT 2022-12-28 18:56:41 Risa Aguilera [facility] COMPREHENSIVE METABOLIC 2022-12-17 12:58:11 Aguilera, Risa B [facility] PANEL [facility] COMPLETE BLOOD COUNT W/ 2022-12-17 12:58:11 Risa Aguilera [facility] DIFFERENTIAL [facility] GLUCOSE LEVEL 2022-12-17 12:58:11 Risa Aguilera [facility] BLOOD UREA NITROGEN 2022-12-17 12:58:11 Risa Aguilera [facility] ELECTROLYTE PANEL 2022-12-17 12:58:11 Risa Aguilera [facility] SERUM CREATININE 2022-12-17 12:58:11 Risa Aguilera [facility] .GLOMERULAR FILTRATION RATE 2022-12-17 12:58:11 Risa Aguilera [facility] CALCIUM LEVEL 2022-12-17 12:58:11 Risa Aguilera [facility] ALBUMIN LEVEL 2022-12-17 12:58:11 Risa Aguilera [facility] ALKALINE PHOSPHATASE 2022-12-17 12:58:11 Risa Aguilera [facility] ALANINE AMINOTRANSFERASE 2022-12-17 12:58:11 Risa Aguilera [facility] vers[facility] ASPARTATE AMINOTRANSFERASE 2022-12-17 12:58:11 Risa Aguilera [facility] n[facility] TOTAL PROTEIN 2022-12-17 12:58:11 Risa Aguilera [facility] FRACTIONATED BILIRUBIN 2022-12-17 12:58:11 Risa Aguilera [facility] rsUT [facility] .CBC 2022-12-17 12:58:11 Risa Aguilera [facility] DIFFERENTIAL 2022-12-17 12:58:11 Risa Aguilera [facility] MISC - NON-LEGAL REC 2022-11-30 05:01:00 Doctor Unassigned, [facility] URINE CULTURE 2022-11-20 16:57:00 Risa Aguilera [facility] URINALYSIS WITH MICROSCOPIC 2022-11-20 16:57:00 Risa Aguilera [facility] IF INDICATED [facility] URINALYSIS MICROSCOPIC EXAM 2022-11-20 16:57:00 Risa Aguilera [facility] URINE CULTURE 2022-11-20 16:57:00 Risa Aguilera [facility] URINALYSIS MICROSCOPIC EXAM 2022-11-20 16:57:00 Risa Aguilera [facility] COMPLETE BLOOD COUNT W/ 2022-11-20 15:41:00 Hugo Danisha [facility] DIFFERENTIAL [facility] COMPREHENSIVE METABOLIC 2022-11-20 15:41:00 Hugo Danisha [facility] PANEL [facility] Results CBC 2022-11-20 15:41:00 Hugo Danisha [facility] MANUAL DIFFERENTIAL 2022-11-20 15:41:00 Danisha Arias [facility] GLUCOSE LEVEL 2022-11-20 15:41:00 Hugo Danisha [facility] BLOOD UREA NITROGEN 2022-11-20 15:41:00 Danisha Arias [facility] ELECTROLYTE PANEL 2022-11-20 15:41:00 Hugo Danisha [facility] SERUM CREATININE 2022-11-20 15:41:00 Hugo [facility] .GLOMERULAR FILTRATION RATE 2022-11-20 15:41:00 Hugo [facility] CALCIUM LEVEL TOTAL 2022-11-20 15:41:00 [place] [facility] ALBUMIN LEVEL 2022-11-20 15:41:00 [facility] ALKALINE PHOSPHATASE 2022-11-20 15:41:00 Danisha Ari[facility] ALANINE AMINOTRANSFERASE 2022-11-20 15:41:00 Danisha Arias [facility] ASPARTATE AMINOTRANSFERASE 2022-11-20 15:41:00 Danisha Arias [facility] TOTAL PROTEIN 2022-11-20 15:41:00 Danisha Arias [facility] FRACTIONATED BILIRUBIN 2022-11-20 15:41:00 Danisha Arias [facility] CONSENT/REFUSAL FOR 2022-11-13 20:14:27 Doctor [facility] DIAGNOSIS AND TREATMENT [facility] COMPREHENSIVE METABOLIC 2022-10-22 14:14:00 Risa Aguilera [facility] PANEL [facility] COMPLETE BLOOD COUNT W/ 2022-10-22 14:14:00 Risa Aguilera [facility] DIFFERENTIAL [facility] GLUCOSE LEVEL 2022-10-22 14:14:00 Risa Aguilera [facility] BLOOD UREA NITROGEN 2022-10-22 14:14:00 Risa Aguilera [facility] ELECTROLYTE PANEL 2022-10-22 14:14:00 Risa Aguilera [facility] SERUM CREATININE 2022-10-22 14:14:00 Risa Aguilera [facility] .GLOMERULAR FILTRATION RATE 2022-10-22 14:14:00 Risa Aguilera [facility] CALCIUM LEVEL TOTAL 2022-10-22 14:14:00 Risa Aguilera [facility] ALBUMIN LEVEL 2022-10-22 14:14:00 Risa Aguilera [facility] ALKALINE PHOSPHATASE 2022-10-22 14:14:00 Risa Aguilera [facility] ALANINE AMINOTRANSFERASE 2022-10-22 14:14:00 Risa Aguilera [facility] ASPARTATE AMINOTRANSFERASE 2022-10-22 14:14:00 Risa Aguilera [facility] TOTAL PROTEIN 2022-10-22 14:14:00 Risa Aguilera [facility] FRACTIONATED BILIRUBIN 2022-10-22 14:14:00 Risa Aguilera [facility] Results CBC 2022-10-22 14:14:00 Risa Aguilera [place] [facility] MANUAL DIFFERENTIAL 2022-10-22 14:14:00 Risa Aguilera [facility] PHYSICIAN ORDERS 2022-10-22 05:01:00 Doctor Unassigned, [facility] HB ECG ROUTINE & RHYTHM 2022-09-03 20:28:58 Jose Julian [facility] PATIENT FINANCIAL 2022-09-03 20:20:15 Doctor Unassigned, [facility] [place] POLICY [facility] PHYSICIAN ORDERS 2022-07-27 06:01:00 Doctor Unassigned, [facility] Name Medical [place] PATHOLOGY SURGICAL 2022-05-24 23:00:00 Kerry Plaza [facility] INTERPRETATION Remedios Moore MD [facility] SEGMENTAL MASTECTOMY - OTHER 2022-05-24 21:33:00 Kerry Plaza [facility] Remedios Moore MD [facility] TARGETED AXILLARY NODE 2022-05-24 21:33:00 Kerry Plaza [facility] DISSECTION Remedios Moore MD [facility] AXILLARY LYMPHADENECTOMY 2022-05-24 21:33:00 Kerry Plaza [facility] Moore [facility] INTRAOPERATIVE LYMPHATIC 2022-05-24 21:33:00 Kerry Plaza [facility] MAPPING Remedios Moore MD [facility] PORT-A-CATH REMOVAL 2022-05-24 21:33:00 Kerry Plaza [facility] Remedios Moore MD [facility] COMPLEX REPAIR OF TRUNK 2022-05-24 21:33:00 Yoav Valdez [facility] BREAST SPECIMEN RADIOGRAPH 2022-05-24 18:00:39 Maylin [facility] Lisa CLAY [facility] COVID-19 (SARS-COV-2) 2022-05-24 17:51:00 Kerry Plaza [facility] ASY[facility]LT Remedios Moore MD [facility] COVID-19 (SARS-COV-2) PCR - 2022-05-24 17:51:00 Kerry Plaza [facility] ASYMPTOMATIC - LT Remedios [facility] SEGMENTAL MASTECTOMY - OTHER 2022-05-24 13:00:00 Kerry Plaza [facility] Remedios Moore MD [facility] TARGETED AXILLARY NODE 2022-05-24 13:00:00 Kerry Plaza [facility] DISSECTION Remedios Moore MD [facility] AXILLARY LYMPHADENECTOMY 2022-05-24 13:00:00 Kerry Plaza [facility] REARRANGEMENT OF ADJACENT 2022-05-24 13:00:00 Yoav Valdez [facility] TISSUE FOR REPAIR OF DEFECT MD Sal[facility] Center MASTOPEXY 2022-05-24 13:00:00 Yoav Valdez [facility] EKG, 12-LEAD (PORTABLE) 2022-05-24 00:00:00 Elizabeth Izquierdo [facility] COMPLETE BLOOD COUNT W/ 2022-05-23 22:06:00 Evonne Carlisle [facility] DIFFERENTIAL [facility] COMPREHENSIVE METABOLIC 2022-05-23 22:06:00 Evonne Carlisle [facility] PANEL [facility] Results CBC 2022-05-23 22:06:00 Maylin [facility] MANUAL DIFFERENTIAL 2022-05-23 22:06:00 aJd Carlisle [facility] GLUCOSE LEVEL 2022-05-23 22:06:00 Maylin [facility] BLOOD UREA NITROGEN 2022-05-23 22:06:00 Jad Carlisle [facility] ELECTROLYTE PANEL 2022-05-23 22:06:00 Maylin [facility] [place] SERUM CREATININE 2022-05-23 22:06:00 Maylin [facility] .GLOMERULAR FILTRATION RATE 2022-05-23 22:06:00 Maylin [facility] CALCIUM LEVEL TOTAL 2022-05-23 22:06:00 Maylin [facility] ALBUMIN LEVEL 2022-05-23 22:06:00 Maylin [facility] ALKALINE PHOSPHATASE 2022-05-23 22:06:00 Maylin [facility] ALANINE AMINOTRANSFERASE 2022-05-23 22:06:00 [facility] ASPARTATE AMINOTRANSFERASE 2022-05-23 22:06:00 Maylin [facility] TOTAL PROTEIN 2022-05-23 22:06:00 Maylin [facility] FRACTIONATED BILIRUBIN 2022-05-23 22:06:00 Maylin [facility] MAMMO POST PROCEDURE RIGHT 2022-05-23 21:52:00 Maylin [facility] US GUIDED BREAST NON-WIRE 2022-05-23 21:21:00 [facility] LOCALIZATION RIGHT Lisa Mejia [facility] US GUIDED AXILLARY LN 2022-05-23 21:21:00 [facility] NON-WIRE LOCALIZATION RIGHT Lisa Downing [facility] [place] LYMPHOSCINTIGRAPHY BREAST 2022-05-23 18:40:00 Maylin [facility] EXTERNAL MAMMOGRAM 2022-04-27 19:11:00 Doctor Unassigned, Nayeli [facility] MAMMO DIGITAL DIAGNOSTIC 2022-04-27 17:07:00 Maylin, [facility] [place] RIGHT W HOWARD Lisa MD [facility] US BREAST COMPLETE RIGHT 2022-04-27 16:20:00 Maylin, [facility] US CHEST 2022-04-27 16:20:00 Maylin, [facility] URINALYSIS WITH MICROSCOPIC 2022-04-17 18:21:38 Risa Aguilera [facility] IF INDICATED [facility] COMPLETE BLOOD COUNT W/ 2022-04-17 16:39:00 Risa Aguilera [facility] DIFFERENTIAL [facility] Results CBC 2022-04-17 16:39:00 Risa Aguilera [facility] MANUAL DIFFERENTIAL 2022-04-17 16:39:00 Risa Aguilera [facility] URINE CULTURE 2022-03-27 18:41:00 Hugo Danisha [facility] URINALYSIS MICROSCOPIC 2022-03-27 18:41:00 Danisha Arias [facility] URINALYSIS WITH MICROSCOPIC 2022-03-27 18:41:00 Hugo Danisha [facility] IF INDICATED [facility] COMPLETE BLOOD COUNT W/ 2022-03-27 17:27:55 Risa Aguilera [facility] DIFFERENTIAL [facility] ASPARTATE AMINOTRANSFERASE 2022-03-27 17:27:55 Risa Aguilera [facility] ALANINE AMINOTRANSFERASE 2022-03-27 17:27:55 Risa Aguilera [facility] vers[facility] ALKALINE PHOSPHATASE 2022-03-27 17:27:55 Risa [facility] BILIRUBIN TOTAL 2022-03-27 17:27:55 Risa Aguilera [facility] Results CBC 2022-03-27 17:27:55 Risa Aguilera [facility] er Center MANUAL DIFFERENTIAL 2022-03-27 17:27:55 Risa Aguilera [facility] Center COMPLETE BLOOD COUNT W/ 2022-03-06 18:25:18 Danisha Arias [facility] DIFFERENTIAL [facility] Results CBC 2022-03-06 18:25:18 Dansiha Arias [facility] MANUAL DIFFERENTIAL 2022-03-06 18:25:18 Danisha Arias [facility] Center XR HUMERUS 2 VIEWS MINIMUM 2022-02-20 18:25:20 R[facility] RIGHT [facility] US ARM VENOUS DOPPLER RIGHT 2022-02-20 18:13:00 Risa Aguilera [facility] COMPLETE BLOOD COUNT W/ 2022-02-13 18:00:00 Risa Aguilera [facility] DIFFERENTIAL [facility] BLOOD UREA NITROGEN 2022-02-13 18:00:00 Risa Aguilera [facility] Center SERUM CREATININE 2022-02-13 18:00:00 Risa Aguilera [facility] ASPARTATE AMINOTRANSFERASE 2022-02-13 18:00:00 Risa Aguilera [facility] ALANINE AMINOTRANSFERASE 2022-02-13 18:00:00 Risa Aguilera [facility] ALKALINE PHOSPHATASE 2022-02-13 18:00:[address] [facility] BILIRUBIN TOTAL 2022-02-13 18:00:00 Risa Aguilera [facility] Results CBC 2022-02-13 18:00:00 Risa Aguilera [facility] MANUAL DIFFERENTIAL 2022-02-13 18:00:00 Risa Aguilera [facility] Center SERUM CREATININE 2022-02-13 18:00:00 Risa Aguilera [facility] .GLOMERULAR FILTRATION RATE 2022-02-13 18:00:00 Risa [facility] EXTERNAL MAMMOGRAM 2022-02-09 15:03:00 Doctor Unassigned, Nayeli crook [facility] US BREAST COMPLETE RIGHT 2022-02-09 14:54:00 Brooks [facility] US CHEST 2022-02-09 14:54:00 Maylin [facility] er Center COMPLETE BLOOD COUNT W/ 2022-02-06 19:16:25 Risa Aguilera [facility] DIFFERENTIAL [facility] er Center Results CBC 2022-02-06 19:16:25 Risa Aguilera [facility] er Center MANUAL DIFFERENTIAL 2022-02-06 19:16:25 Risa Aguilera [facility] Center COMPLETE BLOOD COUNT W/ 2022-01-30 19:10:00 Risa Aguilera [facility] DIFFERENTIAL [facility] er Center Results CBC 2022-01-30 19:10:00 Risa Aguilera [facility] er Center MANUAL DIFFERENTIAL 2022-01-30 19:10:00 Risa Aguilera [facility] Center COMPLETE BLOOD COUNT W/ 2022-01-22 15:43:00 Gil Aguirre [facility] DIFFERENTIAL [facility] er Center Results CBC 2022-01-22 15:43:00 Gil Aguirre [facility] er Center MANUAL DIFFERENTIAL 2022-01-22 15:43:00 Gil Aguirre [facility] er Center COMPLETE BLOOD COUNT W/ 2022-01-15 14:40:18 Gil Aguirre [facility] DIFFERENTIAL [facility] er Center Results CBC 2022-01-15 14:40:18 Giuseppe Aguirrejuana [facility] er Center MANUAL DIFFERENTIAL 2022-01-15 14:40:18 Gil Aguirre [facility] er Center COMPLETE BLOOD COUNT W/ 2022-01-02 18:18:24 Gil Aguirre [facility] [place] DIFFERENTIAL [facility] Center Results CBC 2022-01-02 18:18:24 Gil Aguirre o [facility] Center MANUAL DIFFERENTIAL 2022-01-02 18:18:24 [facility] er Center COMPLETE BLOOD COUNT W/ 2021-12-26 15:11:00 Gil Aguirre [facility] [place] DIFFERENTIAL [facility] er Center ASPARTATE AMINOTRANSFERASE 2021-12-26 15:11:00 Gil Aguirre U [facility] of [facility] Center ALANINE AMINOTRANSFERASE 2021-12-26 15:11:00 Gil Aguirre Uni versity of [facility] er Center ALKALINE PHOSPHATASE 2021-12-26 15:11:00 [facility] Center BILIRUBIN TOTAL 2021-12-26 15:11:00 Gil Aguirre [place] [facility] er Center Results CBC 2021-12-26 15:11:00 Gil Aguirre [place] [facility] er Center MANUAL DIFFERENTIAL 2021-12-26 15:11:00 Gil Aguirre [facility] ty of [facility] er Center COMPLETE BLOOD COUNT W/ 2021-12-19 17:56:00 Gil Aguirre [facility] [place] DIFFERENTIAL [facility] er Center Results CBC 2021-12-19 17:56:00 Gil Aguirre [place] [facility] er Center MANUAL DIFFERENTIAL 2021-12-19 17:56:00 [facility] er Center COMPLETE BLOOD COUNT W/ 2021-12-12 19:00:00 Gil Aguirre [facility] [place] DIFFERENTIAL [facility] er Center Results CBC 2021-12-12 19:00:00 Gil Aguirre o [facility] er Center MANUAL DIFFERENTIAL 2021-12-12 19:00:00 Gil [facility] er Center COMPLETE BLOOD COUNT W/ 2021-12-05 15:35:00 Gil Aguirre [facility] [place] DIFFERENTIAL [facility] er Center Results CBC 2021-12-05 15:35:00 Gil Aguirre [facility] er Center MANUAL DIFFERENTIAL 2021-12-05 15:35:00 Gil Aguirre [facility] Center COMPLETE BLOOD COUNT W/ 2021-11-28 18:03:00 Lynda Barlow [facility] DIFFERENTIAL [facility] er Center Results CBC 2021-11-28 18:03:00 Lynda Barlow [facility] er Center MANUAL DIFFERENTIAL 2021-11-28 18:03:00 Lynda Barlow [facility] Center COMPLETE BLOOD COUNT W/ 2021-11-21 13:07:00 Cain Lynda [facility] Center Results CBC 2021-11-21 13:07:00 Lynda Barlow [facility] er Center MANUAL DIFFERENTIAL 2021-11-21 13:07:00 Lynda Barlow [facility] Center COMPLETE BLOOD COUNT W/ 2021-11-14 16:55:00 Risa Aguilera [facility] ASPARTATE AMINOTRANSFERASE 2021-11-14 16:55:00 Risa [facility] ALANINE AMINOTRANSFERASE 2021-11-14 16:55:00 Risa Aguilera [facility] ALKALINE PHOSPHATASE 2021-11-14 16:55:00 Risa Aguilera [facility] er Center BILIRUBIN TOTAL 2021-11-14 16:55:00 Risa Aguilera [facility] er Center Results CBC 2021-11-14 16:55:00 Risa Aguilera [facility] er Center MANUAL DIFFERENTIAL 2021-11-14 16:55:00 Risa Aguilera [facility] er Center IR FL PORT PLACEMENT 2021-11-14 14:55:[address] [facility] MRI ABDOMEN W WO CONTRAST 2021-11-10 18:38:00 Risa Aguilera [facility] COMPLETE BLOOD COUNT W/ 2021-11-10 16:10:43 Risa Aguilera [facility] COMPREHENSIVE METABOLIC 2021-11-10 16:10:43 Risa Aguilera [facility] [place] PANEL [facility] CANCER ANTIGEN 15-3 2021-11-10 16:10:43 Risa Aguilera [facility] PROTHROMBIN TIME 2021-11-10 16:10:43 Sylvester Beverly [facility] GLUCOSE, RANDOM 2021-11-10 16:10:43 Nazia Boudreaux [facility] TYPE AND SCREEN 2021-11-10 16:10:43 Janusz [facility] Results CBC 2021-11-10 16:10:43 Risa Aguilera [facility] MANUAL DIFFERENTIAL 2021-11-10 16:10:43 Risa Aguilera [facility] BLOOD UREA NITROGEN 2021-11-10 16:10:43 Risa Aguilera [facility] ELECTROLYTE PANEL 2021-11-10 16:10:43 Risa Aguilera [facility] SERUM CREATININE 2021-11-10 16:10:43 Risa Aguilera [facility] .GLOMERULAR FILTRATION RATE 2021-11-10 16:10:43 Risa Aguilera [facility] CALCIUM LEVEL TOTAL 2021-11-10 16:10:43 Risa Aguilera [facility] ALBUMIN LEVEL 2021-11-10 16:10:43 Risa Aguilera [facility] ALKALINE PHOSPHATASE 2021-11-10 16:10:43 Risa Aguilera [facility] ALANINE AMINOTRANSFERASE 2021-11-10 16:10:43 Risa Aguilera [facility] ASPARTATE AMINOTRANSFERASE 2021-11-10 16:10:43 Risa Aguilera [facility] TOTAL PROTEIN 2021-11-10 16:10:43 Risa Aguilera [place] [facility] FRACTIONATED BILIRUBIN 2021-11-10 16:10:43 Risa Aguilera [facility] ABORH 2021-11-10 16:10:43 Nazia Boudreaux [facility] ANTIBODY SCREEN 2021-11-10 16:10:43 Nazia Boudreaux [facility] CLOT EXPIRATION DATE 2021-11-10 16:10:43 Nazia [facility]oudreaux [facility] INTERPRETATION ANTIBODY 2021-11-10 16:10:43 Karson Boudreaux [facility] SCREEN NEGATIVE [facility] CONFIRM ABORH TYPE 2021-11-10 16:06:54 Risa [facility] COVID-19 (SARS-COV-2) 2021-11-10 15:54:00 Nazia Boudreaux [facility] PCR-ASYMPTOMATIC [facility] ECHOCARDIOGRAM 2D COMPLETE 2021-11-03 19:28:49 Misty Cardoza [facility] EKG, 12-LEAD (SCHEDULED) 2021-11-03 00:00:00 Misty Cardoza [facility] NM BONE SCAN WHOLE BODY 2021-11-02 14:40:00 Maylin [facility] CHEST ABDOMEN PELVIS W WO 2021-11-02 13:42:00 Maylin [facility] CONTRAST [facility] POC CREATININE 2021-11-02 12:27:00 Maylin [facility] MAMMO POST PROCEDURE RIGHT 2021-10-26 18:50:35 Maylin [facility] EXTERNAL MAMMOGRAM 2021-10-26 18:50:00 Doctor Unassigned, [facility] [place] [facility] US BREAST COMPLETE BILATERAL 2021-10-26 18:42:00 Maylin , [facility] Lisa CLAY [facility] er Center US CHEST 2021-10-26 18:42:00 Maylin, [facility] er Center US HEAD NECK SOFT TISSUE 2021-10-26 18:42:00 KhanTanner, [facility] US GUIDED AXILLARY LYMPH 2021-10-26 18:42:00 Maylin, [facility] [place] NODE FNA RIGHT [facility] US GUIDED AXILLARY CLIP 2021-10-26 18:42:00 KhanTanner, [facility] [place] PLACEMENT RIGHT [facility] CYTOLOGY IMAGE-GUIDED FNA 2021-10-26 17:30:00 Maylin, [facility] [place] INTERPRETATION [facility] MAMMO DIGITAL DIAGNOSTIC 2021-10-26 16:22:00 Maylin, [facility] [place] BILATERAL W HOWARD [facility] PATHOLOGY OUTSIDE 2021-10-03 00:00:00 Michael Tirado [facility] INTERPRETATION [facility] OSI MAMMO BILATERAL 2021-09-06 16:03:00 [facility] Remedios Moore MD [facility] Partial Mastectomy [facility] Procedure on Knee [facility] Repair of Hip [facility] Plan of Care Planned Activity Planned Date Details Comments Source Future Scheduled 2023-05-02 COVID-19 Vaccination [facility] [place] Test 10:48:28 (#1) [code = COVID-19 [facility] (#1[facility] Center Future Scheduled 2022-12-12 COVID-19 Vaccination [facility] [place] Test 10:21:24 (#1) [code = COVID-19 MD [facility] (#1)] Center Future Scheduled 2022-03-13 COVID-19 Vaccination [facility] [place] Test 11:54:24 (#1) [code = COVID-19 MD [facility] (#1)] Center Future Scheduled 2022-01-09 COVID-19 Vaccination [facility] [place] Test 07:58:01 (#1) [code = COVID-19 MD [facility] (#1)] Center Encounters Start End Encounter Admission Attending Care Care Encounter Source Date/Time Date/Time Type Type Clinicians Facility Department ID 2022-10-02 Outpatient SYSTEM, [facility] [id number] 13:28:21 PROVIDER Shaheen o n 2022-08-14 Outpatient SYSTEM, [facility] [id number] 09:00:10 PROVIDER Shaheen o n 2021-10-26 Outpatient SYSTEM, [facility] [id number] 09:43:27 PROVIDER Shaheen o n 2021-10-26 Outpatient SYSTEM, [facility] [id number] MD 08:50:15 PROVIDER Shaheen o n 2021-10-26 Outpatient SYSTEM, [facility] [id number] MD 08:50:15 PROVIDER Shaheen o n 2021-10-26 Outpatient SYSTEM, [facility] [id number] MD 08:50:15 PROVIDER Shaheen o n 2021-10-26 Outpatient SYSTEM, [facility] [id number] MD 08:45:15 PROVIDER Shaheen o n 2021-10-13 Outpatient SYSTEM, [facility] [id number] MD 13:22:46 PROVIDER Shaheen o n 2020-09-02 Inpatient Elective Ioana [facility] [id number] [facility] 09:30:00 [place] [id number] 2023-05-01 2023-05-01 Telephone Erika Sue [id number] [facility] 00:00:00 00:00:00 [id number] ity of 3.412.2.7 [place] .3.606842 .8 Yoselin arizmendi [facility] 2023-04-29 2023-04-29 Outpatient OMAR JARA [facility] [id number] [place] 10:12:00 10:12:00 [facility][id number] [facility]23-[facility]-29 2023-04-29 Outpatient RISA [facility]QUENDO [facility] [id number] [place] 10:08:00 10:08:00 -[id number] [facility] 2023-04-29 2023-04-29 Telephone Erika Sue 1.2.840.1 [id number] Univers 00:00:00 00:00:00 L [id number] ity of 3.412.2.7 [place] .3.120208 MD Retana8 [facility] 2023-04-25 2023-04-25 Telephone Daquan, 1.2.840.1 [id number] Univers 00:00:00 00:00:00 Cathy A [id number] ity of 3.412.2.7 [place] .3.289236 MD Retana8 [facility] 2023-04-25 2023-04-25 Risa Rosa 1.2.840.1 [id number] Univers 00:00:00 00:00:00 Only B [id number] ity of 3.412.2.7 [place] .[id number] MD Retana8 [facility] 2023-04-19 2023-04-19 Risa Rosa 1.2.840.1 [id number] Univers 00:00:00 00:00:00 Only B [id number] ity of 3.412.2.7 [place] .[id number] MD Maria [facility] 2023-04-18 2023-04-18 Outpatient OMAR QUIROGA [facility] [id number] [place] 13:34:00 13:34:00 KEIKO [id number] [facility] 2023-04-15 2023-04-15 Outpatient OMAR ARIAS MDA MDA [id number] 11:21:16 12:09:56 DANISHA arizmendi 2023-04-15 2023-04-15 Follow-Up Hugo 1.2.840.1 [id number] [facility] 11:20:00 12:09:56 Danisha [id number] ity of 3.412.2.7 [place] .[id number] MD Maria [facility] 2023-04-15 2023-04-15 Outpatient OMAR ARIAS BELLA BLANCO [id number] 11:04:39 11:17:00 DANISHA arizmendi 2023-04-15 2023-04-15 Travel 1.2.840.1 [id number] Univers 00:00:00 00:00:00 [id number] [place]y of 3[place].2.[place] .[id number] 084.8 .[facility]23-04-08 Orders Risa Aguilera 1.2.840.1 [id number] [facility] 00:00:00 00:00:00 Only B 80776.1.1 ity of 3.412.2.7 [place] .3.702164 MD Retana8 [facility] 2023-03-21 2023-03-21 Telephone Team, [facility] 1.2.840.114 1 [id number] [facility] 00:00:00 00:00:00 Health ROSA M 350.1.13.10 it y of [facility] 4.2.7.2.686 [place] 807.9325737 [place] [id number] [place] 2023-03-12 2023-03-12 Outpatient OMAR SABILLON [facility] [id number] [facility] 09:12:00 09:12:00 AALIYAH -[id number] [facility] 2023-03-04 2023-03-04 Follow-Up Shelby Arias.2.840.1 [id number] [id number] [facility] 11:20:00 11:40:00 Danisha 03945.1.1 ity of 3.412.2.7 [place] .3.519013 MD [facility]8 [facility] 20[facility]-03-[facility] 2023-03-04 Outpatient OMAR ARIAS BELLA BLANCO [id number] 11:36:43 11:36:43 DANISHA arizmendi 2023-03-04 2023-03-04 Outpatient RISA OQUENDO MDA, MDA 1109 [id number] 11:10:58 11:32:27 Shaheen arizmendi 2023-03-04 2023-03-04 Travel 1.2.840.1 1.2.797.725 3756 [id number] Univers 00:00:00 00:00:00 50076.1.1 350.1.13.41 ity of 3.412.2.7 [place].7.3.698 [place] .3.176006 084.8 MD Retana8 [facility] 2023-02-11 2023-02-11 Telephone Braxton, 1.2.840.1 [id number] Univers 00:00:00 00:00:00 Hung B 06599.1.1 i ty of 3.412.2.7 [place] .3.753539 MD Retana8 [facility] 2023-02-05 2023-02-05 Risa Arzate 1.2.840.1 [id number] 059 [id number] Univers 00:00:00 00:00:00 B 26603.1.1 ity of 3.412.2.7 [place] .3.250743 MD Maria [facility] 2023-01-29 2023-01-29 Outpatient EL MELA MDA MDA [id number] 12:06:23 12:38:19 KERRY [facility] 2023-01-29 2023-01-29 Follow-Up Mela, 1.2.840.1 [id number] Univers 11:00:00 12:38:19 Kerry Whittaker 61144.1.1 it y of [place] 3.412.2.7 [place] .3.239703 MD Maria [facility] 2023-01-29 2023-01-29 Ancillary Paola 1.2.840.1 [id number] Univers 09:00:00 10:00:00 Procedure Lisa de la vega 71357.1.1 ity of 3.412.2.7 [place] .3.824533 MD Maria [facility] 2023-01-29 2023-01-29 Outpatient EL PAOLA MDA MDA [id number] 09:52:12 09:52:12 LISA DE LA VEGA Lety woodruffvega n 2023-01-29 2023-01-29 Travel 1.2.840.1 1.2.938.681 9451 [id number] Univers 00:00:00 00:00:00 84808.1.1 350.1.13.41 ity of 3.412.2.7 2.[place].7.3.698 [place] .3.902652 084.8 MD Retana8 [facility] 2023-01-28 2023-01-28 Outpatient OMAR JARA [facility] [id number] [place] 13:58:00 13:58:00 NEGRA -[id number] [facility] 2023-01-23 2023-01-23 Telephone Danisha Arias 1.2.840.1 [id number] Univers 14:20:00 14:40:00 Risa Aguilera 26910.1.1 ity of 3.412.2.7 [place] .3.258231 MD Retana8 [facility] 2023-01-23 2023-01-23 Orders Risa Aguilera 1.2.840.1 [id number] Univers 00:00:00 00:00:00 Only Ute 59711.1.1 ity of 3.412.2.7 [place] .3.152447 MD Maria [facility] 2023-01-16 2023-01-16 [facility] 1.2.474.836 5802 [id number] Univers 00:00:00 00:00:00 Patricia LAUGHLIN 350.1.13.10 i ty of [place] 4.2.7.2.[place] 057.1302878 Or dical NAL 059 [address] [employer] 2023-01-14 2023-01-14 Outpatient OMAR ARIAS MDA MDA [id number] 11:51:07 12:45:44 DANISHA arizmendi 2023-01-14 2023-01-14 Follow-Up Shelby Arias.2.840.1 [id number] Univers 11:40:00 12:45:44 Danisha 52321.1.1 ity of 3.412.2.7 [place] .3.800697 MD Retana8 [facility] 2023-01-14 2023-01-14 Outpatient RISA OQUENDO [facility] [id number] 11:21:07 11:42:30 [facility] 2023-01-14 2023-01-14 Travel 1.2.840.1 1.2.511.858 0020 [id number] Univers 00:00:00 00:00:00 43294.1.1 350.1.13.41 ity of 3.412.2.7 2.[place].7.3.698 [place] .3.146741 084.8 MD Retana8 [facility] 2023-01-02 2023-01-02 Outpatient Kaleb [facility] [id number] Univers 13:30:00 13:30:00 BELIA ity of [facility] 2023-01-01 2023-01-01 Telephone Hugo, 1.2.840.1 [id number] [facility] 11:00:00 11:20:00 Danisha 34671.1.1 ity of 3.412.2.7 [place] .3.173910 MD Retana8 [facility] 2022-12-31 2022-12-31 Telephone Erika Sue 1.2.840.0 [id number] Univers 00:00:00 00:00:00 L 62353.1.1 ity of 3.412.2.7 [place] .3.327402 MD Retana8 [facility] 2022-12-28 2022-12-28 Ancillary Risa Aguilera 1.2.840.1 [id number] 1 [id number] Univers 14:00:00 14:15:00 Procedure B 30814.1.1 it y of 3.412.2.7 [place] .3.093801 MD Maria [facility] 2022-12-28 2022-12-28 Ancillary Risa Aguilera 1.2.840.1 [id number] 1 [id number] Univers 13:45:00 14:00:00 Procedure B 88253.1.1 it y of 3.412.2.7 [place] .3.474881 MD Retana8 [facility] 2022-12-28 2022-12-28 Ancillary Risa Aguilera 1.2.840.1 [id number] 1 [id number] [facility] 12:45:00 13:45:00 Procedure B 05852.1.1 it y of 3.412.2.7 [place] .3.673398 MD Retana8 [facility] 2022-12-28 2022-12-28 Outpatient RISA OQUENDO MDA MDA 1107 [id number] 13:06:08 13:06:08 Shaheen o ugo 2022-12-28 2022-12-28 Outpatient RISA OQUENDO MDA MDA [id number] 13:06:01 13:06:01 Shaheen o n 2022-12-28 2022-12-28 Outpatient RISA OQUENDO MDA MDA [id number] 13:05:52 13:05:52 [facility] 2022-12-28 2022-12-28 Orders Risa Aguilera 1.2.840.1 [id number] [id number] [facility] 00:00:00 00:00:00 Only B 95779.1.1 ity of 3.412.2.7 [place] .3.384712 MD Retana8 [facility] 2022-12-27 2022-12-27 Telephone Erika Sue 1.2.840.9 [id number] [facility] 00:00:00 00:00:00 L 00809.1.1 ity of 3.412.2.7 [place] .3.204140 MD Maria [facility] 2022-12-17 2022-12-17 Outpatient OMAR ARIAS MDA MDA [id number] 08:02:35 08:52:47 DANISHA martinez 2022-12-17 2022-12-17 Follow-Up Danisha Arias 1.2.840.1 [id number] [facility] 08:00:00 08:52:47 Risa Aguilera B 94064.1.1 ity of 3.412.2.7 [place] .3.841369 MD Maria [facility] 2022-12-17 2022-12-17 Outpatient OMAR RISA AGUILERA [facility] 1106 [id number] 07:48:44 07:58:37 Shaheen arizmendi 2022-12-17 2022-12-17 Travel 1.2.840.1 1.2.404.741 2402 [id number] Univers 00:00:00 00:00:00 04219.1.1 350.1.13.41 ity of 3.412.2.7 2.2.7.3.698 [place] .3.095325 084.8 MD Retana8 [facility] 2022-12-11 2022-12-11 [facility]phone [facility] 1.2.191.061 4725 [id number] Univers 00:00:00 00:00:00 Lailasonyachelsy LAUGHLIN 350.1.13.10 ity of [place] 4.2.7.2.686 [place] [facility] [phone] [place] dicVictor [place] 694279 [facility] 2022-12-05 2022-12-05 Outpatient R [facility] [id number] Univers 12:57:24 13:42:00 PATRICIA ity of [facility] 2022-11-30 2022-11-30 Orders Doctor CARLA 1.2.840.114 [id number] Univers 00:00:00 00:00:00 Only Unassigned, ROSA M 350.1.13.10 ity of [place] [facility] 4.2.7.2.686 Nirmal as [id number] [address] 2022-11-21 2022-11-21 Telephone Jackie Deal 1.2.840.1 [id number] Univers 00:00:00 00:00:00 B 59311.1.1 ity of 3.412.2.7 [place] .3.105695 MD Maria [facility] 2022-11-21 2022-11-21 Telephone Jackie Deal 1.2.840.1 [id number] Univers 00:00:00 00:00:00 B 36646.1.1 ity of 3.412.2.7 [place] .3.055127 MD Maria [facility] 2022-11-20 2022-11-20 Follow-Up Danisha Bonilla 1.2.840.1 [id number] [facility] 11:40:00 12:40:38 Risa Aguilera 00325.1.1 ity of 3.412.2.7 [place] .3.413551 .8 [facility] 2022-11-20 2022-11-20 Follow-Up Danisha Arias 1.2.840.1 [id number] [facility] 11:40:00 12:40:38 Risa Aguilera 58474.1.1 ity of 3.412.2.7 [place] .3.523709 MD Retana8 [facility] 2022-11-20 2022-11-20 Outpatient OMAR RISA AGUILERA BELLA BLANCO 1106 [id number] 11:56:52 12:01:41 [facility] 2022-11-20 2022-11-20 Outpatient OMAR ARIAS BELLA MDA [id number] 10:41:11 10:53:07 DANISHA [facility] 2022-11-20 2022-11-20 Travel 1.2.840.1 1.2.813.343 8552 [id number] Univers 00:00:00 00:00:00 34890.1.1 350.1.13.41 ity of 3.412.2.7 2.[place].7.3.698 [place] .3.699194 084.8 MD Retana8 [facility] 2022-11-20 2022-11-20 Travel 1.2.840.1 1.2.209.896 9062 [id number] [facility] 00:00:00 00:00:00 91016.1.1 350.1.13.41 ity of 3.412.2.7 2.[place].7.3.698 [place] .3.870144 084.8 MD Maria [facility] 2022-11-13 2022-11-13 Outpatient Kaleb DE LA [place] [facility] [id number] [facility] 15:40:00 16:02:49 PATRICIA ity of [facility] 2022-11-13 2022-11-13 Office [facility] 1.2.840.114 [id number] Univers 15:40:00 16:02:49 Visit Patricia LAUGHLIN 350.1.13.10 i ty of [place] 4.2.7.2.[place] PROFESS[place] 017.1108069 Or dic[address] 2022-11-13 2022-11-13 Orders Doctor AGUIRRE 1.2.840.114 [id number] Univers 00:00:00 00:00:00 Only Unassigned, ROSA M 350.1.13.10 ity of [facility] 4.2.7.2.686 N[place] as [phone] [address] 2022-11-09 2022-11-09 Telephone [facility] 1.2.226.394 2429 [id number] Univers 00:00:00 00:00:00 Jose LAUGHLIN 350.1.13.10 ity of [place].7.2.[place] PROF[place] 879.3743169 Or dical NAL [address] [place] [address] 2022-11-06 2022-11-06 Telephone [facility] 1.2.506.639 0432 [id number] Univers 00:00:00 00:00:00 Jose LAUGHLIN 350.1.13.10 ity of [place] 4.[place].2.[place] 800.2594165 Or dical NAL 9 [facility] 2022-10-24 2022-10-24 Risa Rosa 1.2.840.1 [id number] Univers 00:00:00 00:00:00 Only B 53940.1.1 ity of 3.412.2.7 [place] .3Mazin139916 MD Retana8 [facility] 2022-10-24 2022-10-24 Risa Rosa 1.2.840.1 [id number] 066 [id number] Univers 00:00:00 00:00:00 Only B 45264.1.1 ity of 3.412.2.7 [place] .3Mazin325921Hal Retana8 [facility] 2022-10-22 2022-10-22 Follow-Up MOAR Arias, 1.2.840.1 [id number] [id number] Univers 09:20:00 12:39:07 Danisha 56155.1.1 ity of 3.412.2.7 [place] .3.667236 MD Maria [facility] 2022-10-22 2022-10-22 Follow-Up Hugo, 1.2.840.1 [id number] [id number] Univers 09:20:00 12:39:07 Danisha 97229.1.1 ity of 3.412.2.7 [place] .3.426259 MD Retana8 [facility] 2022-10-22 2022-10-22 Outpatient RISA OQUENDO MDA, MDA 1105 [id number] 09:13:42 09:47:12 [facility] 2022-10-22 2022-10-22 Travel 1.2.840.1 1.2.735.751 4497 [id number] Univers 00:00:00 00:00:00 94103.1.1 350.1.13.41 ity of 3.412.2.7 2.2.7.3.698 [place] .3.298452 084.8 MD Maria [facility] 2022-10-22 2022-10-22 Travel 1.2.840.1 1.2.631.047 6886 [id number] Univers 00:00:00 00:00:00 23140.1.1 350.1.13.41 ity of 3.412.2.7 2.2.7.3.698 [place] .3.857740 084.8 MD Maria [facility] 2022-10-22 2022-10-22 Orders Doctor CARLA 1.2.840.114 [id number] Univers 00:00:00 00:00:00 Only Unassigned, ROSA M 350.1.13.10 ity of [place] [facility] 4.2.7.2.686 [place]al as 456.2451872 [place] [address] [address] 2022-10-18 2022-10-18 Spencer Julian [facility] 1.2.840.114 [id number] Univers 00:00:00 00:00:00 Jose LAUGHLIN 350.1.13.10 ity of [place] 4.2.7.2.686 David RESENDIZIO 747.0535594 [place] 694279 [facility] 2022-10-01 2022-10-01 Telephone Jackie Deal 1.2.840.1 [id number] Univers 00:00:00 00:00:00 B 85198.1.1 ity of 3.412.2.7 [place] .3.092810 MD Retana8 [facility] 2022-10-01 2022-10-01 Telephone Jackie Deal 1.2.840.1 [id number] Univers 00:00:00 00:00:00 B 72207.1.1 ity of 3.412.2.7 [place] .3.677399 .8 [facility] 2022-09-20 2022-09-20 Outpatient [facility] [id number] 023 [place] 00:00:00 00:00:00 0509 [facility] 2022-09-19 2022-09-19 Outpatient Yan[facility]W [facility] [id number] 023 [place] 00:00:00 00:00:00 0329 [facility] 2022-09-19 2022-09-19 Outpatient Yan[facility]W [facility] [id number] 023 [place] 00:00:00 00:00:00 0330 [facility] 2022-09-19 2022-09-19 August Palomo MM [place] - [id number] [place] 00:00:00 00:00:00 MD: Eleni Calhoun [facility] [address], [facility], Otolaryngol CARLOS Storey [phone] , Ph. 2022-09-17 2022-09-17 Follow-Up OMAR Arias, 1.2.840.1 [id number] 1102 [id number] Univers 08:00:00 09:11:17 Danisha 71602.1.1 ity of 3.412.2.7 [place] .3.107636 MD Maria [facility] 2022-09-17 2022-09-17 Follow-Up Hugo, 1.2.840.1 [id number] [id number] Univers 08:00:00 09:11:17 Danisha 37773.1.1 ity of 3.412.2.7 [place] .3.496816 MD Maria [facility] 2022-09-17 2022-09-17 Travel 1.2.840.1 1.2.524.696 3472 [id number] Univers 00:00:00 00:00:00 68554.1.1 350.1.13.41 ity of 3.412.2.7 2.2.7.3.698 [place] .3.080751 084.8 MD Maria [facility] 2022-09-17 2022-09-17 Travel 1.2.840.1 1.2.833.097 0815 [id number] Univers 00:00:00 00:00:00 55460.1.1 350.1.13.41 ity of 3.412.2.7 2.2.7.3.698 [place] .3.220183 084.8 MD Maria [facility] 2022-09-13 2022-09-13 Outpatient IAN TRIPLETT, [facility] [id number] [place] 17:03:00 17:03:00 [id number] [facility] 2022-09-03 2022-09-03 Outpatient R ELIEL [facility] [id number] Univers 15:20:00 16:09:57 JOSE saunders o f [facility] 2022-09-03 2022-09-03 Office Eliel [facility] 1.2.840.114 [id number] Univers 15:20:00 16:09:57 Visit Jose LAUGHLIN 350.1.13.10 ity of [place] 4.2.7.2.686 David howard PROFESSIO [id number] Or dical [facility]9 [facility] 2022-09-03 2022-09-03 Orders Doctor CARLA 1.2.840.114 [id number] Univers 00:00:00 00:00:00 Only Unassigned, ROSA M 350.1.13.10 ity of [place] [facility] 4.2.7.2.686 Nirmal as 191.4326913 [place] [address] [address] 2022-08-23 2022-08-23 Nutrition Kerry Elliott [place] 1.2.840.1 [id number] Univers 13:00:00 13:30:00 Florinda Tom 98358.1.1 ity of 3.412.2.7 [place] .3.279919 MD Maria [facility] 2022-08-23 2022-08-23 Kerry Herrerasalina [place] 1.2.840.1 [id number] Univers 13:00:00 13:30:00 Florinda Tom 71634.1.1 ity of 3.412.2.7 [place] .3.982366 MD Maria [facility] 2022-08-20 2022-08-20 Orders Risa Aguilera 1.2.840.1 [id number] [id number] Univers 00:00:00 00:00:00 Only B 98847.1.1 ity of 3.412.2.7 [place] .3.645587 MD Maria [facility] 2022-08-20 2022-08-20 Orders Risa Aguilera 1.2.840.1 [id number] 837 [id number] Univers 00:00:00 00:00:00 Only B 22364.1.1 ity of 3.412.2.7 [place] .3.911612 MD Maria [facility] 2022-08-16 2022-08-16 Telephone Jackie Deal 1.2.840.1 [id number] Univers 00:00:00 00:00:00 B 19085.1.1 ity of 3.412.2.7 [place] .3.580263 MD Maria [facility] 2022-08-16 2022-08-16 Telephone Jackie Deal 1.2.840.1 [id number] Univers 00:00:00 00:00:00 B 13604.1.1 ity of 3.412.2.7 [place] .3.902802 MD Maria [facility] 2022-08-13 2022-08-13 Outpatient Yan_W [facility] [place] [id number] 023 [place] 00:00:00 00:00:00 0220 [facility] 2022-08-13 2022-08-13 Outpatient Yan_W [facility] [id number] 023 [place] 00:00:00 00:00:00 022 [facility] 2022-08-13 2022-08-13 Outpatient Yan_W [facility] [id number] 023 [place] 00:00:00 00:00:00 0328 [facility] 2022-08-09 2022-08-09 Risa Rosa 1.2.840.1 [id number] Univers 00:00:00 00:00:00 Only B 07843.1.1 ity of 3.412.2.7 [place] .3.870298 MD Maria [facility] 2022-08-09 2022-08-09 Risa Rosa 1.2.840.1 [id number] Univers 00:00:00 00:00:00 Only B 62309.1.1 ity of 3.412.2.7 [place] .3.471780 MD Maria [facility] 2022-08-03 2022-08-03 [facility] [id number] [place] 03:17:00 03:17:00 DEREK -[id number] [facility] 2022-08-02 2022-08-02 Risa Rosa 1.2.840.1 [id number] [id number] Univers 00:00:00 00:00:00 Only B 88735.1.1 ity of 3.412.2.7 [place] .3.442271 MD Maria [facility] 2022-08-02 2022-08-02 Risa Rosa 1.2.840.1 [id number] Univers 00:00:00 00:00:00 Only B 22828.1.1 ity of 3.412.2.7 [place] .3.387012 MD Maria [facility] 2022-07-27 2022-07-27 Orders Doctor CARLA 1.2.840.114 [id number] Univers 00:00:00 00:00:00 Only Unassigned, ROSA M 350.1.13.10 ity of [place] [facility] 4.2.7.2.686 Nirmal as 111.7571727 [place] [address] [address] 2022-07-25 2022-07-25 Refill [facility] 1.2.840.114 [id number] Univers 00:00:00 00:00:00 Jose LAUGHLIN 350.1.13.10 ity of [place].2.[place] 879.4534344 [facility]59 [facility] 2022-07-23 2022-07-23 Follow-Up OMAR Arias, 1.2.840.1 [id number] [id number] Univers 10:00:00 10:37:51 Danisha 37264.1.1 ity of 3.412.2.7 [place] .3.166225 MD Maria [facility] 2022-07-23 2022-07-23 Follow-Up Hugo, 1.2.840.1 [id number] 1102 [id number] Univers 10:00:00 10:37:51 Danisha 15778.1.1 ity of 3.412.2.7 [place] .3.571694 MD Maria [facility] 2022-07-23 2022-07-23 Travel 1.2.840.1 1.2.834.292 8153 [id number] Univers 00:00:00 00:00:00 26294.1.1 350.1.13.41 ity of 3.412.2.7 2.[place].7.3.698 [place] .3.129658 084.8 MD Maria [facility] 2022-07-23 2022-07-23 Travel 1.2.840.1 1.2.608.953 8435 [id number] Univers 00:00:00 00:00:00 22509.1.1 350.1.13.41 ity of 3.412.2.7 2.2.7.3.698 [place] .3.476411 084.8 MD Maria [facility] 2022-06-29 2022-06-29 Jackie López 1.2.840.1 [id number] Univers 00:00:00 00:00:00 B 17573.1.1 ity of 3.412.2.7 [place] .3.358102 MD Retana8 [facility] 2022-06-29 2022-06-29 Jackie López 1.2.840.1 [id number] Univers 00:00:00 00:00:00 B 92603.1.1 ity of 3.412.2.7 [place] .3.874046 MD Retana8 [facility] 2022-06-20 2022-06-20 Clinical Lisa Duffy 1.2.840.1 [id number] Univers 11:00:00 11:30:00 Support Skye Ryder 02544.1.1 ity of 3.412.2.7 [place] .3.206322 MD Maria [facility] 2022-06-20 2022-06-20 Lisa Solis 1.2.840.1 [id number] Univers 11:00:00 11:30:00 Support Skye Ryder 96052.1.1 ity of 3.412.2.7 [place] .3.911792 MD Retana8 [facility] 2022-06-20 2022-06-20 Risa Rosa 1.2.840.1 [id number] [id number] Univers 00:00:00 00:00:00 Only B 15330.1.1 ity of 3.412.2.7 [place] .3.893081 MD Retana8 [facility] 2022-06-20 2022-06-20 Jackie López 1.2.840.1 [id number] Univers 00:00:00 00:00:00 B 99118.1.1 ity of 3.412.2.7 [place] .3.829191 MD Maria [facility] 2022-06-20 2022-06-20 Travel 1.2.840.1 1.2.237.578 1674 [id number] Univers 00:00:00 00:00:00 60117.1.1 350.1.13.41 ity of 3.412.2.7 2.2.7.3.698 [place] .3.552065 084.8 MD Maria [facility] 2022-06-20 2022-06-20 Risa Rosa 1.2.840.1 [id number] Univers 00:00:00 00:00:00 Only B 36995.1.1 ity of 3.412.2.7 [place] .3.600363 MD Maria [facility] 2022-06-20 2022-06-20 Telephone Jackie Deal 1.2.840.1 [id number] Univers 00:00:00 00:00:00 B 88614.1.1 ity of 3.412.2.7 [place] .3.097912 MD Maria [facility] 2022-06-20 2022-06-20 Travel 1.2.840.1 1.2.558.637 1160 [id number] Univers 00:00:00 00:00:00 64839.1.1 350.1.13.41 ity of 3.412.2.7 2.2.7.3.698 [place] .3.022301 084.8 MD Maria [facility] 2022-06-19 2022-06-19 Carley Guevara 1.2.840.1 [id number] Univers 00:00:00 00:00:00 Only Lisa de la vega 68413.1.1 ity of 3.412.2.7 [place] .3.692642 MD Maria [facility] 2022-06-19 2022-06-19 Orders Paola 1.2.840.1 [id number] Univers 00:00:00 00:00:00 Only Lisa [place] 75222.1.1 ity of 3.412.2.7 [place] .3.997919 MD Maria [facility] 2022-06-14 2022-06-14 Clinical Lisa Duffy 1.2.840.1 [id number] Univers 14:30:00 15:00:00 Support Jeremias September 01864.1.1 ity of 3.412.2.7 [place] .3.508094 MD Maria [facility] 2022-06-14 2022-06-14 Lisa Solis 1.2.840.1 [id number] Univers 14:30:00 15:00:00 Support Jeremias September 26965.1.1 ity of 3.412.2.7 [place] .3.486539 MD Maria [facility] 2022-06-14 2022-06-14 Travel 1.2.840.1 1.2.576.071 [id number] Univers 00:00:00 00:00:00 75284.1.1 350.1.13.41 ity of 3.412.2.[place]3.698 [place] .3.439538 084.8 MD Maria [facility] 2022-06-14 2022-06-14 Travel 1.2.840.1 1.2.263.136 6858 [id number] Univers 00:00:00 00:00:00 99619.1.1 350.1.13.41 ity of 3.412.2.7 [place].3.698 [place] .3.627187 084.8 MD Maria [facility] 2022-06-13 2022-06-13 Orders Waqas-Yung 1.2.840.1 [id number] Univers 00:00:00 00:00:00 Only Lisa [place] 99405.1.1 ity of 3.412.2.7 [place] .3.434062 MD Retana8 [facility] 2022-06-13 2022-06-13 Orders Khan-Yung 1.2.840.1 [id number] 11 [id number] Univers 00:00:00 00:00:00 Only Lisa [place] 55573.1.1 ity of 3.412.2.7 [place] .3.771957 MD Retana8 [facility] 2022-06-08 2022-06-08 Office EL Refinetti, 1.2.840.1 [id number] [id number] Univers 14:30:00 15:47:49 Visit Kerry Whittaker 49307.1.1 it y of [place] 3.412.2.7 [place] .3.951796 MD Retana8 [facility] 2022-06-08 2022-06-08 Office Refinetti, 1.2.840.1 [id number] [id number] Univers 14:30:00 15:47:49 Visit Kerry Whittaker 88074.1.1 it y of [place] 3.412.2.7 [place] .3.345235 MD Maria [facility] 2022-06-08 2022-06-08 Orders Khan-Yung 1.2.840.1 [id number] 11 [id number] Univers 00:00:00 00:00:00 Only Lisa [place] 51151.1.1 ity of 3.412.2.7 [place] .3.095883 MD Maria [facility] 2022-06-08 2022-06-08 Travel 1.2.840.1 1.2.634.545 [id number] Univers 00:00:00 00:00:00 62323.1.1 350.1.13.41 ity of 3.412.2.[place]3.698 [place] .3.955988 084.8 MD Maria [facility] 2022-06-08 2022-06-08 Orders Khan-Yung 1.2.840.1 [id number] 11 [id number] Univers 00:00:00 00:00:00 Only Lisa [place] 87321.1.1 ity of 3.412.2.7 [place] .3.131702 MD Retana8 [facility] 2022-06-08 2022-06-08 Travel 1.2.840.1 1.2.660.832 4827 [id number] Univers 00:00:00 00:00:00 18106.1.1 350.1.13.41 ity of 3.412.2.[place]3.698 [place] .3.637628 084.8 MD Retana8 [facility] 2022-06-05 2022-06-05 Telemedici OMAR Oconnor, 1.2.840.1 [id number] Univers 09:00:00 09:15:00 ne Dianna 83277.1.1 ity of 3.412.2.7 [place] .3.170897 MD Retana8 [facility] 2022-06-05 2022-06-05 Telemedici Anastasia, 1.2.840.1 [id number] Univers 09:00:00 09:15:00 ne Dianna 43346.1.1 ity of 3.412.2.7 [place] .3.409637 MD Retana8 [facility] 2022-06-05 2022-06-05 Telephone Hugo, 1.2.840.1 [id number] Univers 00:00:00 00:00:00 Danisha 57224.1.1 ity of 3.412.2.7 [place] .3.505547 MD Retana8 [facility] 2022-06-05 2022-06-05 Telephone Hugo, 1.2.840.1 [id number] Univers 00:00:00 00:00:00 Danisha 33839.1.1 ity of 3.412.2.7 [place] .3.172394 MD Retana8 [facility] 2022-06-01 2022-06-01 Office Yoav Lowe 1.2.840.1 [id number] Univers 09:15:00 10:00:42 Visit Victor M 87844.1.1 ity of 3.412.2.7 [place] .3.113696 MD Maria [facility] 2022-06-01 2022-06-01 Office Yoav Valdez 1.2.840.1 [id number] 018 [id number] Univers 09:15:00 10:00:42 Visit Victor M 29082.1.1 ity of 3.412.2.7 [place] .3.036333 MD Maria [facility] 2022-06-01 2022-06-01 Travel 1.2.840.1 1.2.490.000 6658 067228 Univers 00:00:00 00:00:00 53937.1.1 350.1.13.41 ity of 3.412.2.7 [place].3.698 [place] .3.230[place] 084.Adriel [facility] 2022-06-01 2022-06-01 Travel 1.2.840.1 1.2.088.997 9317 801127 Univers 00:00:00 00:00:00 91162.1.1 350.1.13.41 ity of 3.412.2.7 [place].3.698 [place] .3.838[place] 084.Adriel [facility] 2022-05-28 2022-05-28 Redd Boyle 1.2.840.1 [id number] 11 [id number] Univers 00:00:00 00:00:00 Only Isami 41365.1.1 [place] .3.[place] MD [facility] 2022-05-28 2022-05-28 Redd Blum 1.2.840.1 [id number] Univers 00:00:00 00:00:00 Isami 53578.1.1 [place] .3.78[place]46Hal Retana8 [facility] 2022-05-28 2022-05-28 Nurse Bernal, 1.2.840.1 [id number] Univers 00:00:00 00:00:00 Triage Parul 83658.1.1 ity of [place] 3.412.2.7 Nirmal as .3.536821 MD Retana8 [facility] 2022-05-28 2022-05-28 Telephone Ren, 1.2.840.1 [id number] 11 [id number] Univers 00:00:00 00:00:00 Pietro A 29393.1.1 ity of 3.412.2.7 [place] .3.027547 MD Retana8 [facility] 2022-05-28 2022-05-28 Orders Redd Gross 1.2.840.1 [id number] 11 [id number] Univers 00:00:00 00:00:00 Only Isami 77842.1.1 [place] .3.675[place] Retana8 [facility] 2022-05-28 2022-05-28 Telephone Redd Gross 1.2.840.1 [id number] Univers 00:00:00 00:00:00 Isami 05417.1.1 [place] .3.8968[place] Retana8 [facility] 2022-05-28 2022-05-28 Nurse Bernal, 1.2.840.1 [id number] Univers 00:00:00 00:00:00 Triage Parul 28432.1.1 ity of [place] 3.412.2.7 Nirmal as .3.076460 MD Retana8 [facility] 2022-05-28 2022-05-28 Telephone Ren, 1.2.840.1 [id number] 11 [id number] Univers 00:00:00 00:00:00 Pietro A 30693.1.1 ity of 3.412.2.7 [place] .3.849921 MD Retana8 [facility] 2022-05-272022-05-27 Telephone Nagel, 1.2.840.1 [id number] 1100 [id number] Univers 00:00:00 00:00:00 Harini F 68675.1.1 ity of 3.412.2.7 [place] .3.060232 MD [facility] 2022-05-27 2022-05-27 Telephone Nagel, 1.2.840.1 [id number] 1100 [id number] Univers 00:00:00 00:00:00 Harini F 26463.1.1 ity of 3.412.2.7 [place] .3.241354 MD Retana8 [facility] 2022-05-26 2022-05-26 Nurse Kath, 1.2.840.1 [id number] 1100 [id number] Univers 00:00:00 00:00:00 Triage Tomasz 88629.1.1 ity of 3.412.2.7 [place] .3.442099 MD Retana8 [facility] 2022-05-26 2022-05-26 Nurse Kath, 1.2.840.1 [id number] 1100 [id number] Univers 00:00:00 00:00:00 Triage Tomasz 78928.1.1 ity of 3.412.2.7 [place] .3.514330 MD Retana8 [facility] 2022-05-24 2022-05-25 [facility], 1.2.840.1 [id number] 10 [id number] Univers 11:30:00 13:44:00 Encounter Kerry Whittaker 61835.1.1 ity of [place] 3.412.2.7 [place] .3.886736 MD Retana8 [facility] 2022-05-24 2022-05-25 [facility] [place], 1.2.840.1 [id number] 10 [id number] Univers 11:30:00 13:44:00 Encounter Kerry Whittaker 49720.1.1 ity of [place] 3.412.2.7 [place] .3.761002 MD Retana8 [facility] 2022-05-25 2022-05-25 Nurse Kamran, 1.2.840.1 [id number] 81865 [id number] Univers 00:00:00 00:00:00 Triage Jackeline Jimenez 75813.1.1 ity of 3.412.2.7 [place] .3.345367 MD Retana8 [facility] 2022-05-25 2022-05-25 Nurse Kamran, 1.2.840.1 [id number] [id number] Univers 00:00:00 00:00:00 Triage Jackeline Tony 10122.1.1 ity of 3.412.2.7 [place] .3.419996 MD Retana8 [facility] 2022-05-24 2022-05-24 [facility] 1.2.840.1 [id number] 1 [id number] Univers 12:00:39 23:59:00 Encounter Lisa de la vega 61963.1.1 ity of 3.412.2.7 [place] .3.804382 MD Retana8 [facility] 2022-05-24 2022-05-24 [facility] 1.2.840.1 [id number] 1 [id number] Univers 12:00:39 23:59:00 Encounter Lisa de la vega 43409.1.1 ity of 3.412.2.7 [place] .3.257441 MD [facility] 2022-05-24 2022-05-24 Surgery Refinetti, 1.2.840.1 [id number] 179 [id number] Univers 15:00:00 21:10:00 Amy 29769.1.1 it y of [place] 3.412.2.7 [place] .3.013981 MD Retana8 [facility] 2022-05-24 2022-05-24 Surgery Refinetti, 1.2.840.1 [id number] 776 [id number] Univers 15:00:00 21:10:00 Amy 15505.1.1 it y of [place] 3.412.2.7 [place] .3.270381 MD Retana8 [facility] 2022-05-24 2022-05-24 Anesthesia Alba Reyes 1.2.840.1 [id number] 6 [id number] Univers 15:59:00 19:44:00 Event Melissa Geller 11848.1.1 ity of 3.412.2.7 [place] .3.850774 MD [facility] 2022-05-24 2022-05-24 Anesthesia Alba Reyes 1.2.840.1 [id number] 6 [id number] Univers 15:59:00 19:44:00 Event Melissa Geller 28974.1.1 ity of 3.412.2.7 [place] .3.196834 MD [facility] 2022-05-24 2022-05-24 Erika Meyer 1.2.840.1 [id number] 11 [id number] Univers 00:00:00 00:00:00 Only Ella 92498.1.1 ity of 3.412.2.7 [place] .3.168049 MD Maria [facility] 2022-05-24 2022-05-24 Travel 1.2.840.1 1.2.274.894 6563 [id number] Univers 00:00:00 00:00:00 68360.1.1 350.1.13.41 ity of 3.412.2.7 [place]7.3.698 [place] .3.0545[place] 084Candace [facility] 2022-05-24 2022-05-24 Carley Erika Daniels 1.2.840.1 [id number] 11 [id number] Univers 00:00:00 00:00:00 Only Ella 80470.1.1 ity of 3.412.2.7 [place] .3.094368 MD Maria [facility] 2022-05-24 2022-05-24 Travel 1.2.840.1 1.2.137.141 8995 [id number] Univers 00:00:00 00:00:00 89663.1.1 350.1.13.41 ity of 3.412.2.7 2.[place].7.3.698 [place] .3.9563[place] 084Candace [facility] 2022-05-23 2022-05-23 Anesthesia Adan, 1.2.840.1 [id number] 054 [id number] Univers 23:59:59 23:59:59 Event Kyleigh Downing 01360.1.1 it y of 3.412.2.7 [place] .3.283278 MD Retana8 [facility] 2022-05-23 2022-05-23 Anesthesia Adan, 1.2.840.1 [id number] 178 [id number] Univers 23:59:59 23:59:59 Event Kyleigh A 74354.1.1 it y of 3.412.2.7 [place] .3.871657 MD Retana8 [facility] 2022-05-23 2022-05-23 Outpatient OMAR GUEVARA [facility] [id number] 16:01:45 16:01:45 LISA DE LA VEGA An derso n 2022-05-23 2022-05-23 Ancillary EL 1.2.840.1 [id number] 1100 [id number] Univers 15:45:00 16:00:00 Procedure 06602.1.1 it y of 3.412.2.7 [place] .3.548884 MD Retana8 [facility] 2022-05-23 2022-05-23 Ancillary 1.2.840.1 [id number] 1100 [id number] Univers 15:45:00 16:00:00 Procedure 45765.1.1 it y of 3.412.2.7 [place] .3.949515 MD Retana8 [facility] 2022-05-23 2022-05-23 Ancillary OMAR Guevara 1.2.840.1 [id number] Univers 15:00:00 15:30:00 Procedure Lisa de la vega 70581.1.1 ity of 3.412.2.7 [place] .3.435115 MD Retana8 [facility] 2022-05-23 2022-05-23 Ancillary Paola 1.2.840.1 [id number] Univers 15:00:00 15:30:00 Procedure Lisa de la vega 56543.1.1 ity of 3.412.2.7 [place] .3.448856 MD [facility] 2022-05-23 2022-05-23 Ancillary EL 1.2.840.1 [id number] 1096 [id number] Univers 13:45:00 15:30:00 Procedure 89208.1.1 it y of 3.412.2.7 [place] .3.923734 MD Retana8 [facility] 2022-05-23 2022-05-23 Ancillary 1.2.840.1 [id number] 1096 [id number] Univers 13:45:00 15:30:00 Procedure 66102.1.1 it y of 3.412.2.7 [place] .3.883337 MD Retana8 [facility] 2022-05-23 2022-05-23 Ancillary EL Khan-Yung 1.2.840.1 [id number] Univers 12:00:00 12:30:00 Procedure eliceo, Lisa 53858.1.1 ity of 3.412.2.7 [place] .3.581785 MD [facility] 2022-05-23 2022-05-23 Ancillary Khan-Yung 1.2.840.1 [id number] Univers 12:00:00 12:30:00 Procedure eliceo, Lisa 69113.1.1 ity of 3.412.2.7 [place] .3.290543 MD [facility] 2022-05-23 2022-05-23 Ancillary EL Khan-Yung 1.2.840.1 [id number] Univers 11:00:00 11:30:00 Procedure eliceo, Lisa 97911.1.1 ity of 3.412.2.7 [place] .3.973607 MD Retana8 [facility] 2022-05-23 2022-05-23 Ancillary Khan-Yung 1.2.840.1 [id number] [facility] 11:00:00 11:30:00 Procedure eliceo, Lisa 86298.1.1 ity of 3.412.2.7 [place] .3.108014 MD Maria [facility] 2022-05-23 2022-05-23 Consult Yoav Lowe 1.2.840.1 [id number] 548 [id number] Univers 08:45:00 09:31:38 [place] 34140.1.1 ity of 3.412.2.7 [place] .3.653873 MD Retana8 [facility] 2022-05-23 2022-05-23 Consult Yoav Valdez 1.2.840.1 [id number] 598 [id number] Univers 08:45:00 09:31:38 [place] 11904.1.1 ity of 3.412.2.7 [place] .3.735121 MD Retana8 [facility] 2022-05-23 2022-05-23 POEM OMAR GutierrezKhan-Yung 1.2.840.1 [id number] 10 [id number] Univers 08:00:00 08:30:00 AppointLisa marnio 14341.1.1 ity of ts 3.412.2.7 [place] .3.600311 MD Retana8 [facility] 2022-05-23 2022-05-23 POPARDEEP GutierrezKhan-Yung 1.2.840.1 [id number] 10 [id number] Univers 08:00:00 08:30:00 Lisa Herman 10945.1.1 ity of ts 3.412.2.7 [place] .3.234287 MD Retana8 [facility] 2022-05-23 2022-05-23 Orders Khan-Yung 1.2.840.1 [id number] 11 [id number] Univers 00:00:00 00:00:00 Only Lisa de la vega 95270.1.1 ity of 3.412.2.7 [place] .3.898089 MD Retana8 [facility] 2022-05-23 2022-05-23 Cheo Mcdowell 1.2.840.1 [id number] 1100 [id number] Univers 00:00:00 00:00:00 Charmaine F 13172.1.1 ity of 3.412.2.7 [place] .3.852092 MD Retana8 [facility] 2022-05-23 2022-05-23 Travel 1.2.840.1 1.2.688.391 7252 577281 Univers 00:00:00 00:00:00 65357.1.1 350.1.13.41 ity of 3.412.2.7 2.2.7.3.698 [place] .3.233541 084.8 MD Retana8 [facility] 2022-05-23 2022-05-23 Orders Khan-Yung 1.2.840.1 [id number] 11 [id number] Univers 00:00:00 00:00:00 Only Lisa de la vega 28331.1.1 ity of 3.412.2.7 [place] .3.770598 MD Retana8 [facility] 2022-05-23 2022-05-23 Telephone Jeremias, 1.2.840.1 [id number] 1100 [id number] Univers 00:00:00 00:00:00 Charmaine F 72831.1.1 ity of 3.412.2.7 [place] .3.114091 MD Retana8 [facility] 2022-05-23 2022-05-23 Travel 1.2.840.1 1.2.150.989 8736 943715 Univers 00:00:00 00:00:00 34213.1.1 350.1.13.41 ity of 3.412.2.7 2.2.7.3.698 [place] .3.772333 084.8 MD Retana8 [facility] 2022-05-09 2022-05-09 Orders Khan-Yung 1.2.840.1 [id number] 10 [id number] Univers 00:00:00 00:00:00 Only Margie de la vegasy 63467.1.1 ity of 3.412.2.7 [place] .3.768506 MD [facility] 2022-05-09 2022-05-09 Orders Khan-Yung 1.2.840.1 [id number] 10 [id number] Univers 00:00:00 00:00:00 Only Margie de la vegasy 08181.1.1 ity of 3.412.2.7 [place] .3.191556 MD Maria [facility] 2022-05-01 2022-05-[address], 1.2.840.1 [id number] 866 [id number] Univers 13:30:00 15:30:25 Visit Kerry Whittaker 45759.1.1 it y of [place] 3.412.2.7 [place] .3.154677 MD Retana8 [facility] 2022-05-01 2022-05-01 Travel 1.2.840.1 1.2.102.646 8140 377311 Univers 00:00:00 00:00:00 38993.1.1 350.1.13.41 ity of 3.412.2.7 2.2.7.3.698 [place] .3.385632 084.8 MD Maria [facility] 2022-04-27 2022-04-27 Ancillary EL Khan-Yung 1.2.840.1 [id number] Univers 10:15:00 11:15:00 Procedure eliceo, Lisa 30723.1.1 ity of 3.412.2.7 [place] .3.059437 MD Maria [facility] 2022-04-27 2022-04-27 Ancillary EL Khan-Yung 1.2.840.1 [id number] Univers 08:30:00 09:30:00 Procedure eliceo Lsia 75838.1.1 ity of 3.412.2.7 [place] .3.837167 MD Maria [facility] 2022-04-27 2022-04-27 Travel 1.2.840.1 1.2.425.396 3769 330820 Univers 00:00:00 00:00:00 05935.1.1 350.1.13.41 ity of 3.412.2.7 2.2.7.3.698 [place] .3.113669 084.8 MD Maria [facility] 2022-04-19 2022-04-19 Carley Arce, 1.2.840.1 [id number] [id number] Univers 00:00:00 00:00:00 Only Princess 16924.1.1 ity of 3.412.2.7 [place] .3.787007 MD Retana8 [facility] 2022-04-19 2022-04-19 Orders Paola 1.2.840.1 [id number] 10 [id number] Univers 00:00:00 00:00:00 Only Lisa de la vega 62747.1.1 ity of 3.412.2.7 [place] .3.103373 MD Retana8 [facility] 2022-04-17 2022-04-17 Infusion Risa Oquendo 1.2.840.1 [id number] Univers 14:15:00 16:30:23 Dalia Tyler 30982.1.1 ity of 3.412.2.7 [place] .3.957022 MD Retana8 [facility] 2022-04-17 2022-04-17 Office Danisha Bonilla 1.2.840.1 [id number] Univers 13:00:00 13:30:00 Visit Risa Aguilera 40262.1.1 ity of 3.412.2.7 [place] .3.116513 MD Retana8 [facility] 2022-04-17 2022-04-17 Outpatient RISA OQUENDO MDA, MDA [id number] 13:16:05 13:21:49 [facility] 2022-04-17 2022-04-17 Outpatient RISA OQUENDO MDA, MDA [id number] 11:39:20 12:10:16 [facility] 2022-04-17 2022-04-17 Orders Ester Phat 1.2.840.1 [id number] Univers 00:00:00 00:00:00 Only 19844.1.1 ity of 3.412.2.7 [place] .3.391912 MD eRtana8 [facility] 2022-04-17 2022-04-17 Travel 1.2.840.1 1.2.703.214 1427 [id number] Univers 00:00:00 00:00:00 43468.1.1 350.1.13.41 ity of 3.412.2.7 2.2.7.3.698 [place] .3.810407 084.8 MD [facility] 2022-04-03 2022-04-03 Karlie Whitmore, 1.2.840.1 [id number] 832 [id number] Univers 12:42:58 12:42:58 Event Gladis Alanis 68587.1.1 it y of 3.412.2.7 [place] .3.524623 MD Retana8 [facility] 2022-04-02 2022-04-02 Lisa Rivera 1.2.840.1 1 [id number] Univers 09:00:00 12:53:17 Adam Melendez 76041.1.1 ity of 3.412.2.7 [place] .3.070104 MD Retana8 [facility] 2022-04-02 2022-04-[address], 1.2.840.1 [id number] 242 [id number] Univers 10:00:00 12:53:12 Appointmen Kerry Whittaker 30820.1.1 ity of ts [place] 3.412.2.7 [place] .3.108034 MD Retana8 [facility] 2022-04-02 2022-04-02 Carley Felipe, 1.2.840.1 [id number] 0655 Univers 00:00:00 00:00:00 Only Sebas A 02686.1.1 ity of 3.412.2.7 [place] .3.667797 MD Retana8 [facility] 2022-04-02 2022-04-02 Travel 1.2.840.1 1.2.955.203 5909 557141 Univers 00:00:00 00:00:00 84703.1.1 350.1.13.41 ity of 3.412.2.7 2.2.7.3.698 [place] .3.359607 084.8 MD Maria [facility] 2022-03-27 2022-03-27 Infusion Risa Oquendo 1.2.840.1 [id number] [facility] 14:15:00 15:56:26 Korin Garzon 13507.1.1 ity of 3.412.2.7 [place] .3.433400 .8 [facility] 2022-03-27 2022-03-27 Outpatient OMAR ARIAS MDA MDA [id number] 13:41:10 13:43:53 DANISHA [facility] 2022-03-27 2022-03-27 Office OMAR Arias 1.2.840.1 [id number] [facility] 13:20:00 13:40:00 Visit Danisha 88935.1.1 ity of 3.412.2.7 [place] .3.600318 MD Retana8 [facility] 2022-03-27 2022-03-27 Outpatient RISA OQUENDO [facility] 1097 [id number] 12:09:44 12:27:39 [facility] 2022-03-27 2022-03-27 Travel 1.2.840.1 1.2.193.389 2130 813550 Univers 00:00:00 00:00:00 83726.1.1 350.1.13.41 ity of 3.412.2.7 2.2.7.3.698 [place] .3.845586 084.8 MD Retana8 [facility] 2022-03-07 2022-03-07 Orders Waqas-Yung 1.2.840.1 [id number] 10 [id number] Univers 00:00:00 00:00:00 Only Lisa de la vega 87912.1.1 ity of 3.412.2.7 [place] .3.616971 MD Maria [facility] 2022-03-06 2022-03-06 Infusion Danisha Bonilla 1.2.840.1 [id number] [facility] 15:15:00 17:01:34 Korin Garzon 19933.1.1 ity of 3.412.2.7 [place] .3.660743 MD Maria [facility] 2022-03-06 2022-03-06 Office OMAR Garciapardeep Danisha 1.2.840.1 [id number] Univers 14:00:00 14:01:10 Visit Risa Aguilera 86927.1.1 ity of 3.412.2.7 [place] .3.295109 MD Retana8 [facility] 2022-03-06 2022-03-06 Outpatient OMAR ARIAS [facility] [id number] 871 13:07:28 13:25:29 [facility] 2022-03-06 2022-03-06 Carley Arias 1.2.840.1 [id number] Univers 00:00:00 00:00:00 Only Danisha 00457.1.1 ity of 3.412.2.7 [place] .3.737949 MD Maria [facility] 2022-03-06 2022-03-06 Orders Risa Aguilera 1.2.840.1 [id number] 003 [id number] Univers 00:00:00 00:00:00 Only Ute 78645.1.1 ity of 3.412.2.7 [place] .3.754568 MD Maria [facility] 2022-03-06 2022-03-06 Travel 1.2.840.1 1.2.432.924 9929 908775 Univers 00:00:00 00:00:00 29828.1.1 350.1.13.41 ity of 3.412.2.7 2.2.7.3.698 [place] .3.143226 084.8 MD Maria [facility] 2022-02-22 2022-02-22 Carley Ivory 1.2.840.1 [id number] Univers 00:00:00 00:00:00 Only Kasia 46779.1.1 ity of 3.412.2.7 [place] .3.810564 MD Maria [facility] 2022-02-22 2022-02-22 Carley Guevara 1.2.840.1 [id number] 10 [id number] Univers 00:00:00 00:00:00 Only Lisa de la vega 26346.1.1 ity of 3.412.2.7 [place] .3.941439 MD Maria [facility] 2022-02-22 2022-02-22 Orders Khan-Yung 1.2.840.1 [id number] 10 [id number] Univers 00:00:00 00:00:00 Only Lisa de la vega 38938.1.1 ity of 3.412.2.7 [place] .3.224215 MD Maria [facility] 2022-02-20 2022-02-20 Ancillary Risa Oquendo 1.2.840.1 [id number] 1 [id number] Univers 13:00:00 14:15:00 Procedure B 70840.1.1 it y of 3.412.2.7 [place] .3.537331 MD Maria [facility] 2022-02-20 2022-02-20 Ancillary Risa Oquendo 1.2.840.1 [id number] 1 [id number] Univers 13:30:00 13:45:00 Procedure B 14329.1.1 it y of 3.412.2.7 [place] .3.475007 MD Maria [facility] 2022-02-20 2022-02-20 Travel 1.2.840.1 1.2.763.327 3800 073828 Univers 00:00:00 00:00:00 75410.1.1 350.1.13.41 ity of 3.412.2.7 2.2.7.3.698 [place] .3.698407 084.8 MD Maria [facility] 2022-02-16 2022-02-16 Telephone Hugo, 1.2.840.1 [id number] 1096 [id number] Univers 00:00:00 00:00:00 Danisha 29249.1.1 ity of 3.412.2.7 [place] .3.634282 MD Maria [facility] 2022-02-15 2022-02-15 Orders Khan-Yung 1.2.840.1 [id number] 10 [id number] Univers 00:00:00 00:00:00 Only Lisa de la vega 27870.1.1 ity of 3.412.2.7 [place] .3.005759 MD Maria [facility] 2022-02-14 2022-02-14 Consult OMAR Oconnor, 1.2.840.1 [id number] Univers 09:00:00 10:10:29 Dianna 85072.1.1 ity of 3.412.2.7 [place] .3.057104 MD Retana8 [facility] 2022-02-14 2022-02-14 Travel 1.2.840.1 1.2.961.965 5463 [id number] Univers 00:00:00 00:00:00 93521.1.1 350.1.13.41 ity of 3.412.2.7 2.2.7.3.698 [place] .3.270032 084.8 MD Maria [facility] 2022-02-13 2022-02-13 Infusion Risa Oquendo 1.2.840.1 [id number] Univers 15:00:00 17:00:54 Samanta Rolle 97757.1.1 ity of 3.412.2.7 [place] .3.012575 MD Maria [facility] 2022-02-13 2022-02-13 Office OMAR Arias, 1.2.840.1 [id number] [facility] 14:00:00 14:15:04 Visit Danisha 17154.1.1 ity of 3.412.2.7 [place] .3.081285 MD Maria [facility] 2022-02-13 2022-02-13 Outpatient RISA OQUENDO [facility] [id number] 13:00:04 13:12:03 [facility] 2022-02-13 2022-02-13 Risa Rosa 1.2.840.1 [id number] [facility] 00:00:00 00:00:00 Only B 88672.1.1 ity of 3.412.2.7 [place] .3.228246 MD Maria [facility] 2022-02-13 2022-02-13 Travel 1.2.840.1 1.2.795.930 1117 770870 Univers 00:00:00 00:00:00 69252.1.1 350.1.13.41 ity of 3.412.2.7 2.2.7.3.698 [place] .3.788817 084.8 MD Maria [facility] 2022-02-09 2022-02-09 Office EL [address] 1.2.84 0.1 [id number] Univers 13:30:00 13:30:00 Visit Lisa Carlisle 41619.1.1 ity of 3.412.2.7 [place] .3.690736 MD Maria [facility] 2022-02-09 2022-02-09 Ancillary EL 1.2.840.1 [id number] 1092 [id number] Univers 08:00:00 08:45:00 Procedure 79395.1.1 it y of 3.412.2.7 [place] .3.651023 MD Maria [facility] 2022-02-09 2022-02-09 Prep for Paola 1.2.840.1 [id number] [facility] 00:00:00 00:00:00 Surgery Lisa de la vega 05509.1.1 ity of 3.412.2.7 [place] .3.598488 MD Maria [facility] 2022-02-09 2022-02-09 Travel 1.2.840.1 1.2.456.513 [id number] [facility] 00:00:00 00:00:00 88607.1.1 350.1.13.41 ity of 3.412.2.[place]3.698 [place] .3.356598 084.8 MD Maria [facility] 2022-02-06 2022-02-06 Infusion Risa Oquendo 1.2.840.1 [id number] [facility] 15:00:00 17:24:59 Karlie Link 81317.1.1 ity of 3.412.2.7 [place] .3.077258 MD Maria [facility] 2022-02-06 2022-02-06 Outpatient RISA OQUENDO [facility] [id number] 14:01:12 14:16:37 [facility] 2022-02-06 2022-02-06 Travel 1.2.840.1 1.2.332.262 [id number] [facility] 00:00:00 00:00:00 31323.1.1 350.1.13.41 ity of 3.412.2.[place]3.698 [place] .3.845598 084.8 MD Maria [facility] 2022-01-30 2022-01-30 Infusion Risa Oquendo 1.2.840.1 [id number] [facility] 15:30:00 17:39:03 Becky Macedo 58238.1.1 ity of 3.412.2.7 [place] .3.451162 MD Maria [facility] 2022-01-30 2022-01-30 Outpatient RISA OQUENDO [facility] [id number] 14:10:23 14:33:14 [facility] 2022-01-30 2022-01-30 Travel 1.2.840.1 1.2.727.232 0234 [id number] [facility] 00:00:00 00:00:00 19022.1.1 350.1.13.41 ity of 3.412.2.7 [place].3.698 [place] .3.527551 084.8 MD Ret[facility]8 [facility] 2022-01-22 2022-01-22 Infusion Gil Lockhart 1.2.840.1 [id number] [facility] 11:45:00 14:19:41 Korin Garzon 43171.1.1 ity of 3.412.2.7 [place] .3.677879 MD [facility]8 [facility] 2022-01-22 2022-01-22 Outpatient GIL LOCKHART MDA MDA [id number] 10:42:42 11:22:43 Shaheen o n 2022-01-22 2022-01-22 Travel 1.2.840.1 1.2.245.997 [id number] [facility] 00:00:00 00:00:00 39725.1.1 350.1.13.41 ity of 3.412.2.7 2.[place]7.3.698 [place] .3.632843 084.8 MD Retana8 [facility] 2022-01-16 2022-01-16 Risa Rosa 1.2.840.1 [id number] [facility] 00:00:00 00:00:00 Only B 34890.1.1 ity of 3.412.2.7 [place] .3.116065 MD Maria [facility] 2022-01-15 2022-01-15 Infusion Gil Lockhart 1.2.840.1 [id number] [facility] 11:45:00 16:07:40 Ivis Aguirre 65490.1.1 ity of 3.412.2.7 [place] .3.178429 MD Maria [facility] 2022-01-15 2022-01-15 Office OMAR Arias 1.2.840.1 [id number] [facility] 11:00:00 11:20:00 Visit Danisha 62900.1.1 ity of 3.412.2.7 [place] .3.012203 MD [facility]8 [facility] 2022-01-15 2022-01-15 Outpatient GIL LOCKHART [facility] MDA [id number] 09:23:36 09:39:47 [facility] 2022-01-15 2022-01-15 Risa Rosa 1.2.840.1 [id number] [facility] 00:00:00 00:00:00 Only B 03402.1.1 ity of 3.412.2.7 [place] .3.432922 MD Ret[facility]8 [facility] 2022-01-15 2022-01-15 Travel 1.2.840.1 1.2.506.724 [id number] [facility] 00:00:00 00:00:00 42727.1.1 350.1.13.41 ity of 3.412.2.7 2.[place]7.3.698 [place] .3.248349 084.8 MD Retana8 [facility] 2022-01-09 2022-01-09 Risa Rosa 1.2.840.1 [id number] [facility] 00:00:00 00:00:00 Only B 35622.1.1 ity of 3.412.2.7 [place] .3.336480 MD Maria [facility] 2022-01-08 2022-01-08 Risa Rosa 1.2.840.1 [id number] [facility] 00:00:00 00:00:00 Only B 05639.1.1 ity of 3.412.2.7 [place] .3.502975 MD Retana8 [facility] 2022-01-08 2022-01-08 Telephone Hugo, 1.2.840.1 [id number] Univers 00:00:00 00:00:00 Danisha 60039.1.1 ity of 3.412.2.7 [place] .3.410341 MD Retana8 [facility] 2022-01-03 2022-01-03 Risa Rosa 1.2.840.1 [id number] Univers 00:00:00 00:00:00 Only B 46251.1.1 ity of 3.412.2.7 [place] .3.451242 MD Maria [facility] 2022-01-02 2022-01-02 Gil Snyder 1.2.840.1 [id number] 1 [id number] Univers 14:15:00 16:39:43 Adelaide Monsivais 52144.1.1 ity of 3.412.2.7 [place] .3.650307 MD Retana8 [facility] 2022-01-02 2022-01-02 Outpatient GIL LOCKHART [facility] [id number] 13:02:21 13:18:35 [facility] 2022-01-02 2022-01-02 Travel 1.2.840.1 1.2.035.235 7396 [id number] Univers 00:00:00 00:00:00 18216.1.1 350.1.13.41 ity of 3.412.2.7 [place].3.698 [place] .3.818[place] 084.8 .8 [facility] 2021-12-29 2021-12-29 Telephone Jackie Deal 1.2.840.1 [id number] Univers 00:00:00 00:00:00 B 66646.1.1 ity of 3.412.2.7 [place] .3.077386 MD Retana8 [facility] 2021-12-26 2021-12-26 Infusion Gil Lockhart 1.2.840.1 [id number] 1 [id number] Univers 11:30:00 14:33:10 Adelaide Monsivais 20790.1.1 ity of 3.412.2.7 [place] .3.966902 MD Maria [facility] 2021-12-26 2021-12-26 Office Gil Lockhart 1.2.840.1 [id number] 10 [id number] [facility] 10:30:00 11:24:07 Visit 46878.1.1 ity of 3.412.2.7 [place] .3.323919 MD Retana8 [facility] 2021-12-26 2021-12-26 Outpatient GIL LOCKHART [facility] [id number] 10:11:17 10:38:19 [facility] 2021-12-26 2021-12-26 Carley Arias 1.2.840.1 [id number] Univers 00:00:00 00:00:00 Only Danisha 86301.1.1 ity of 3.412.2.7 [place] .3.047133 MD Maria [facility] 2021-12-26 2021-12-26 Travel 1.2.840.1 1.2.804.558 0984 [id number] [facility] 00:00:00 00:00:00 96057.1.1 350.1.13.41 ity of 3.412.2.7 [place]7.3.698 [place] .3.806738 084.8 MD Maria [facility] 2021-12-19 2021-12-19 Infusion Gil Lockhart 1.2.840.1 [id number] 1 [id number] [facility] 14:15:00 16:43:28 Gunjan Bloom 81685.1.1 ity of 3.412.2.7 [place] .3.973362 MD Maria [facility] 2021-12-19 2021-12-19 Outpatient GIL LOCKHART [facility] [id number] 12:55:52 13:04:05 [facility] 2021-12-19 2021-12-19 Travel 1.2.840.1 1.2.232.742 1471 [id number] [facility] 00:00:00 00:00:00 59383.1.1 350.1.13.41 ity of 3.412.2.7 [place]7.3.698 [place] .3.817[place] 084.8 MD Maria [facility] 2021-12-13 2021-12-13 Orders Paola 1.2.840.1 [id number] Univers 00:00:00 00:00:00 Only Lisa de la vega 75507.1.1 ity of 3.412.2.7 [place] .3.771365 MD Maria [facility] 2021-12-13 2021-12-13 Orders Risa Aguilera 1.2.840.1 [id number] Univers 00:00:00 00:00:00 Only B 39824.1.1 ity of 3.412.2.7 [place] .3.229222 MD Maria [facility] 2021-12-12 2021-12-12 Infusion Gil Aguirre 1.2.840.1 [id number] 1 [id number] Univers 15:00:00 17:04:49 KelliShahnaz arizmendi Kathy 76802.1.1 ity of 3.412.2.7 [place] .3.627374 MD Maria [facility] 2021-12-12 2021-12-12 Orders Gil Aguirre 1.2.840.1 [id number] 10 [id number] Univers 00:00:00 00:00:00 Only 23246.1.1 ity of 3.412.2.7 [place] .3.070635 MD Maria [facility] 2021-12-12 2021-12-12 Travel 1.2.840.1 1.2.494.302 7013 [id number] Univers 00:00:00 00:00:00 47336.1.1 350.1.13.41 ity of 3.412.2.7 2.[place]7.3.698 [place] .3.579823 084.8 MD Maria [facility] 2021-12-11 2021-12-11 Telephone Era 1.2.840.1 [id number] 1 [id number] Univers 00:00:00 00:00:00 Chey A 96451.1.1 it y of 3.412.2.7 [place] .3.890468 MD Maria [facility] 2021-12-07 2021-12-07 Telephone Jackie Deal 1.2.840.1 [id number] Univers 00:00:00 00:00:00 B 37781.1.1 ity of 3.412.2.7 [place] .3.768420 MD Maria [facility] 2021-12-05 2021-12-05 Infusion Gil Aguirre 1.2.840.1 [id number] 1 [id number] Univers 13:30:00 15:10:39 Gunjan Bloom 41444.1.1 ity of 3.412.2.7 [place] .3.716399 MD Retana8 [facility] 2021-12-05 2021-12-05 Office Gil Aguirre 1.2.840.1 [id number] 10 [id number] Univers 11:20:00 12:50:28 Visit Danisha Arias 19274.1.1 ity of 3.412.2.7 [place] .3.249898 MD Retana8 [facility] 2021-12-05 2021-12-05 Travel 1.2.840.1 1.2.434.548 8447 [id number] Univers 00:00:00 00:00:00 62852.1.1 350.1.13.41 ity of 3.412.2.7 2.[place]7.3.698 [place] .3.383815 084.8 MD Maria [facility] 2021-12-04 2021-12-04 Telephone Suri, 1.2.840.1 [id number] 1093 [id number] Univers 00:00:00 00:00:00 Cicily S 61498.1.1 ity of 3.412.2.7 [place] .3.900544 MD Maria [facility] 2021-11-28 2021-11-28 Risa Rose 1.2.840.1 [id number] Univers 15:15:00 17:03:38 Becky Macedo 14180.1.1 ity of 3.412.2.7 [place] .3.293873 MD Maria [facility] 2021-11-28 2021-11-28 Aaron Hannon 1.2.840.1 [id number] 10 [id number] Univers 00:00:00 00:00:00 Only T 49445.1.1 ity of 3.412.2.7 [place] .3.154338 MD Maria [facility] 2021-11-28 2021-11-28 Travel 1.2.840.1 1.2.320.627 7934 [id number] Univers 00:00:00 00:00:00 79490.1.1 350.1.13.41 ity of 3.412.2.7 2.2.7.3.698 Te bryan .3.636385 084.8 MD Retana8 [facility] 2021-11-28 2021-11-28 Cheo Dela Jackie 1.2.840.1 [id number] Univers 00:00:00 00:00:00 B 41421.1.1 ity of 3.412.2.7 [place] .3.866971 MD Maria [facility] 2021-11-28 2021-11-28 Risa Rosa 1.2.840.1 [id number] Univers 00:00:00 00:00:00 Only B 74082.1.1 ity of 3.412.2.7 [place] .3.547403 MD Maria [facility] 2021-11-24 2021-11-24 Documentat Risa Aguilera 1.2.840.1 [id number] Univers 00:00:00 00:00:00 ion B 51446.1.1 ity of 3.412.2.7 [place] .3.071357 MD Maria [facility] 2021-11-24 2021-11-24 Risa Rosa 1.2.840.1 [id number] Univers 00:00:00 00:00:00 Only B 05058.1.1 ity of 3.412.2.7 [place] .3.733892 MD Maria [facility] 2021-11-21 2021-11-21 [facility] Danisha Arias 1.2.840.1 [id number] Univers 13:17:50 23:59:00 Cha Goodwin 66283.1.1 ity of 3.412.2.7 [place] .3.812906 MD Maria [facility] 2021-11-21 2021-11-21 Travel 1.2.840.1 1.2.469.161 1191 [id number] Univers 00:00:00 00:00:00 15072.1.1 350.1.13.41 ity of 3.412.2.7 [place]7.3.698 [place] .3.794402 084.8 MD Maria [facility] 2021-11-14 2021-11-14 Hospital Risa Aguilera 1.2.840.1 [id number] Univers 07:11:01 23:59:00 Encounter Max Woodward 79592.1.1 ity of 3.412.2.7 [place] .3.042444 MD Maria [facility] 2021-11-14 2021-11-14 Infusion Risa Aguilera 1.2.840.1 [id number] Univers 12:15:00 17:22:12 Korin Garzon 87537.1.1 ity of 3.412.2.7 [place] .3.137396 MD Maria [facility] 2021-11-14 2021-11-14 Office Risa Aguilera 1.2.840.1 [id number] 1 [id number] Univers 11:20:00 12:51:26 Visit Danisha Arias 94603.1.1 ity of 3.412.2.7 [place] .3.500350 MD Maria [facility] 2021-11-14 2021-11-14 Orders Antionette Norman 1.2.840.1 [id number] Univers 00:00:00 00:00:00 Only 55799.1.1 ity of 3.412.2.7 [place] .3.491513 MD Maria [facility] 2021-11-14 2021-11-14 Travel 1.2.840.1 1.2.651.988 1873 [id number] Univers 00:00:00 00:00:00 37272.1.1 350.1.13.41 ity of 3.412.2.7 2.2.7.3.698 [place] .3.863041 084.8 MD Maria [facility] 2021-11-10 2021-11-10 Anesthesia Logan Palomo 1.2.840.1 [id number] Univers 23:59:59 23:59:59 Event 80586.1.1 ity of 3.412.2.7 [place] .3.430102 MD Maria [facility] 2021-11-10 2021-11-10 [facility] Kerry [address] 1.2.8 40.1 [id number] Univers 12:41:49 23:59:00 Encounter Edelmira Aguilera 82756.1.1 ity of 3.412.2.7 [place] .3.530811 MD Maria [facility] 2021-11-10 2021-11-10 Ancillary Risa Aguilera 1.2.840.1 [id number] 1 [id number] Univers 12:15:00 14:00:00 Procedure B 03279.1.1 it y of 3.412.2.7 [place] .3.573083 MD Maria [facility] 2021-11-10 2021-11-10 [facility] Kerry Yuana 1.2.8 40.1 [id number] Univers 11:15:00 11:15:00 Support Carol Ann Almanza 50969.1.1 ity of 3.412.2.7 [place] .3.313818 MD Maria [facility] 2021-11-10 2021-11-10 STEVIE Boudreaux, 1.2.840.1 [id number] Univers 08:30:00 09:00:00 Appointcathi Mandujano 18873.1.1 ity of ts 3.412.2.7 [place] .3.039313 MD Maria [facility] 2021-11-10 2021-11-10 Travel 1.2.840.1 1.2.413.975 7756 [id number] Univers 00:00:00 00:00:00 48795.1.1 350.1.13.41 ity of 3.412.2.7 2.[place]7.3.698 [place] .3.945451 084.8 MD Maria [facility] 2021-11-09 2021-11-09 Carley Boudreaux, 1.2.840.1 [id number] 72752 Univers 00:00:00 00:00:00 Only Nazia 37438.1.1 ity of 3.412.2.7 [place] .3.747187 MD Maria [facility] 2021-11-08 2021-11-08 Orders Beverly, 1.2.840.1 [id number] Univers 00:00:00 00:00:00 Only Sylvester N 10514.1.1 ity of 3.412.2.7 [place] .3.072708 MD Retana8 [facility] 2021-11-08 2021-11-08 Telephone Abimbola, 1.2.840.1 [id number] Univers 00:00:00 00:00:00 Tammy I 88710.1.1 ity of 3.412.2.7 [place] .3.549298 MD Maria [facility] 2021-11-06 2021-11-06 Consult Hugo, 1.2.840.1 [id number] Univers 10:00:00 11:43:46 Danisha 05409.1.1 ity of 3.412.2.7 [place] .3.615501 MD Maria [facility] 2021-11-06 2021-11-06 Orders Paola 1.2.840.1 [id number] 10 [id number] Univers 00:00:00 00:00:00 Only Lisa de la vega 78981.1.1 ity of 3.412.2.7 [place] .3.435249 MD Maria [facility] 2021-11-06 2021-11-06 Orders Risa Aguilera 1.2.840.1 [id number] [id number] Univers 00:00:00 00:00:00 Only B 06727.1.1 ity of 3.412.2.7 [place] .3.473229 MD Maria [facility] 2021-11-06 2021-11-06 Travel 1.2.840.1 1.2.288.019 6603 [id number] Univers 00:00:00 00:00:00 19930.1.1 350.1.13.41 ity of 3.412.2.7 2.2.7.3.698 [place] .3.803812 084.8 MD Maria [facility] 2021-11-03 2021-11-03 [facility], 1.2.840.1 [id number] [facility] 11:15:00 23:59:00 Encounter Ihab 21624.1.1 it y of 3.412.2.7 [place] .3.036424 MD Retana8 [facility] 2021-11-03 2021-11-03 [facility], 1.2.840.1 [id number] 6105 10:18:26 11:51:45 IHAB 53280.1.1 Oli rso 3.412.2.7 n .3.352901 .8 2021-11-03 2021-11-03 Travel 1.2.840.1 1.2.139.598 5032 [id number] [facility] 00:00:00 00:00:00 85365.1.1 350.1.13.41 ity of 3.412.2.7 2.2.7.3.698 [place] .3.438942 084.8 MD Maria [facility] 2021-11-02 2021-11-02 Ancillary Khan-Yung 1.2.840.1 [id number] Univers 12:40:00 15:05:00 Procedure eliceo, Lisa 03322.1.1 ity of 3.412.2.7 [place] .3.236810 MD Maria [facility] 2021-11-02 2021-11-02 Ancillary Khan-Yung 1.2.840.1 [id number] Univers 09:30:00 10:00:00 Procedure eliceo, Lisa 33856.1.1 ity of 3.412.2.7 [place] .3.370879 MD Maria [facility] 2021-11-02 2021-11-02 Ancillary KhanJass 1.2.840.1 [id number] Univers 07:00:00 07:30:00 Procedure Lisa de la vega 46562.1.1 ity of 3.412.2.7 [place] .3.491249 MD Maria [facility] 2021-11-02 2021-11-02 Travel 1.2.840.1 1.2.982.943 0797 [id number] Univers 00:00:00 00:00:00 53403.1.1 350.1.13.41 ity of 3.412.2.7 2.2.7.3.698 [place] .3.881990 084.Adriel Maria [facility] 2021-10-27 2021-10-27 Office EL Mela, 1.2.840.1 [id number] Univers 08:00:00 11:38:06 Visit Kerry Whittaker 54162.1.1 it y of [place] 3.412.2.7 [place] .3.627634 MD Maria [facility] 2021-10-27 2021-10-27 NPR EL 1.2.840.1 [id number] Univers 07:30:00 08:48:48 18532.1.1 ity of 3.412.2.7 [place] .3.540463 MD Mraia [facility] 2021-10-27 2021-10-27 Travel 1.2.840.1 1.2.843.156 4805 [id number] Univers 00:00:00 00:00:00 36944.1.1 350.1.13.41 ity of 3.412.2.7 2.2.7.3.698 [place] .3.408947 084Candace Maria [facility] 2021-10-26 2021-10-[address], 1.2.840.1 [id number] 1 [id number] Univers 20:15:00 20:20:00 Procedure Kerry Whittaker 99220.1.1 ity of [place] 3.412.2.7 [place] .3.285808 .8 [facility] 2021-10-26 2021-10-26 Ancillary EL Refinetti, 1.2.840.1 [id number] 1 [id number] Univers 20:10:00 20:15:00 Procedure Amy 27172.1.1 ity of [place] 3.412.2.7 [place] .3.822231 .8 [facility] 2021-10-26 2021-10-26 Ancillary EL Refinetti, 1.2.840.1 [id number] 1 [id number] Univers 20:05:00 20:10:00 Procedure Amy 29446.1.1 ity of [place] 3.412.2.7 [place] .3.266586 .8 [facility] 2021-10-26 2021-10-26 Ancillary EL Refinetti, 1.2.840.1 [id number] 1 [id number] Univers 20:00:00 20:05:00 Procedure Amy 10869.1.1 ity of [place] 3.412.2.7 [place] .3.092216 .8 [facility] 2021-10-26 2021-10-26 Ancillary 1.2.840.1 [id number] 1092 [id number] Univers 14:00:00 14:15:00 Procedure 53010.1.1 it y of 3.412.2.7 [place] .3.814961 .8 [facility] 2021-10-26 2021-10-26 Ancillary Waqas-Yung 1.2.840.1 [id number] Univers 11:15:00 12:45:00 Procedure Margie de la vegasy 50947.1.1 ity of 3.412.2.7 [place] .3.246805 MD Retana8 [facility] 2021-10-26 2021-10-26 Ancillary OMAR GUTIERREZKHAN-UYNG 1.2.840.1 [id number] MD 09:51:40 09:51:40 Procedure MARGIE DE LA VEGASY 37873.1.1 Anderso 3.412.2.7 n .3.018046 .8 2021-10-26 2021-10-26 Travel 1.2.840.1 1.2.926.066 3145 [id number] Univers 00:00:00 00:00:00 04095.1.1 350.1.13.41 ity of 3.412.2.7 2.[place].7.3.698 [place] .3.006341 084.8 .8 [facility] 2021-10-25 2021-10-25 Lab Guevara Toñito Schwartz 1.2.840.1 [id number] 52 [id number] Univers 00:00:00 00:00:00 Michael Russell 74122.1.1 ity of n 3.412.2.7 [place] .3.691734 .8 [facility] 2021-10-20 2021-10-20 Carley Guevara 1.2.840.1 [id number] 10 [id number] Univers 00:00:00 00:00:00 Only Lisa de la vega 29616.1.1 ity of 3.412.2.7 [place] .3.945676 .8 [facility] 2021-10-19 2021-10-19 Outpatient Kaleb [facility] [id number] Univers 10:20:00 10:20:00 YOUSUF [facility] 2021-10-17 2021-10-17 Outpatient Kaleb LAMBERT [facility] Q[facility] [id number] Univers 00:00[facility]10-17 2021-10-17 Outpatient Kaleb [facility]ERT [facility] [id number] Univers 00:00:00 00:00:00 TIFFANY [facility] 2021-10-16 2021-10-16 Outpatient Kaleb [facility] [id number] Univers 09:00:00 09:00:00 TIFFANY [facility] 2021-10-16 2021-10-16 Outpatient Kaleb [facility] [id number] Univers 09:00:00 09:00:00 TIFFANY [facility] 2021-10-12 2021-10-12 Telephone [facility] 1.2.840.114 [id number] Univers 00:00:00 00:00:00 Tiffany Howard TRUMAN 350.1.13.10 i ty of [facility] 4[place].2.[place] [id number] [address] 2021-10-11 2021-10-11 Orders Doctor CARLA 1.2.840.114 [id number] Univers 00:00:00 00:00:00 Only Unassigned, ROSA M 350.1.13.10 ity of [facility] 4.2.7.2.686 Nirmal as [id number] [address] 2021-10-10 2021-10-10 Outpatient [facility] [id number] Univers 14:30:00 16:01:54 TIFFANY [facility] 2021-10-10 2021-10-10 Office [facility] 1.2.768.442 [id number] Univers 14:30:00 16:01:54 Visit Tiffany HOODFERDINAND 350.1.13.10 i ty of [place] 4[place].2.[place] [id number] [address] 2021-10-10 2021-10-10 Office [facility] 1.2.166.184 3941 6046 Univers 14:30:00 16:01:54 Visit Tiffany Howard TRUMAN 350.1.13.10 i ty of [place] 4[place]7.2.[place] [id number] [address] 2021-10-10 2021-10-10 Outpatient R [facility] [id number] Univers 14:30:00 14:30:00 TIFFANY [facility] 2021-10-10 2021-10-10 Orders Doctor CARLA 1.2.840.114 [id number] Univers 00:00:00 00:00:00 Only Unassigned, ROSA M 350.1.13.10 ity of [facility] 4.2.7.2.686 [place]al as [id number] [facility] [address] [place] 2021-10-09 2021-10-09 Outpatient R FAUSTO [facility] [id number] Univers 10:23:03 23:59:00 TIFFANY juana [facility] 2021-10-09 2021-10-09 [facility] 1.2.840.114 [id number] Univers 10:23:03 23:59:00 Encounter Tiffany Ricky [facility] 350.1.13.10 ity of [facility] 4.2.7.2.[place] [id number] [facility] [address] [place] 2021-10-09 2021-10-09 Outpatient R [facility] [id number] Univers 10:23:03 23:59:00 TIFFANY [facility] 2021-10-03 2021-10-03 [facility] [id number] Univers 14:45:00 16:17:41 TIFFANY [facility] 2021-10-03 2021-10-03 Office BijanTiffany lundberg [facility] 1.2.840. 114 [id number] Univers 14:45:00 16:17:41 Visit Rm, Adc Surg Spec Procedure [place] 3 50.1.13.10 ity of [place].2.[place] [id number] [facility] [address] [facility] 2021-10-03 2021-10-03 Outpatient R [facility] [id number] Univers 14:45:00 16:17:41 TIFFANY [facility] 2021-10-03 2021-10-03 Office BijanTiffany lundberg [facility] 1.2.840. 114 [id number] Univers 14:45:00 16:17:41 Visit Rm, Adc Surg Spec Procedure [place] 3 50.1.13.10 ity of [place] 4[place]7.2.[place] [id number] [facility] [address] [facility] 2021-10-03 2021-10-03 [facility] [id number] Univers 14:45:00 16:17:41 TIFFANYROB saunders [facility] 2021-10-03 2021-10-03 Outpatient R [facility] [id number] Univers 14:45:00 14:45:00 TIFFANY saunders [facility] 2021-10-03 2021-10-03 Orders Doctor CARLA 1.2.840.114 [id number] Univers 00:00:00 00:00:00 Only Unassigned, ROSA M 350.1.13.10 ity of [place] [facility] 4.2.7.2.686 [place] as [id number] [address] 2021-10-02 2021-10-02 Telephone [facility] 1.2.840.114 [id number] Univers 00:00:00 00:00:00 Tiffany S TRUMAN 350.1.13.10 i ty of [facility] 4.2.7.2.[place] [id number] Or dical NAL [address] [facility] 2021-09-18 2021-09-18 Outpatient R [facility] [id number] Univers 19:00:38 23:59:00 DUNCAN songjuana o f [facility] 2021-09-18 2021-09-18 [facility] 1.2.533.592 [id number] [id number] Univers 19:00:38 23:59:00 Encounter [facility] 350.1.13.10 ity of [facility] 4.2.7.2.686 [place] MARIA D?BLEA [id number] Or dical KNEY [address] MEDICAL OFFICE [facility] 2021-09-18 2021-09-18 Urgent [facility] 1.2.840.114 [id number] Univers 19:00:00 19:00:00 Care Duncan [facility] 350.1.13.10 i ty [facility] 4.2.7.2.686 [place] MARIA D?BLEA [id number] Or dical KNEY [address] [place] [facility] 2021-09-18 2021-09-18 Orders Doctor CARLA 1.2.840.114 [id number] Univers 00:00:00 00:00:00 Only Unassigned, ROSA M 350.1.13.10 ity of [facility] 4.2.7.2.686 [place] as [id number] [address] 2021-09-06 2021-09-06 Orders Doctor CARLA 1.2.840.114 [id number] Univers 00:00:00 00:00:00 Only Unassigned, ROSA M 350.1.13.10 ity of [facility] 4.2.7.2.686 [place] as [id number] [address] 2021-09-04 2021-09-04 Outpatient R [facility] [id number] Univers 16:00:00 16:00:00 JOSE saunders o f [facility] 2021-08-30 2021-08-30 [facility] 1.2.840.114 [id number] Univers 13:20:00 13:40:00 Visit Jose SANAFERDINAND 350.1.13.10 ity of [facility] 4.2.7.2.[place] [id number] Or dical NAL 059 [facility] 2021-08-30 2021-08-30 Outpatient R [facility] [id number] Univers 13:20:00 13:20:00 JOSE saunders o ashley [facility] 2021-04-13 2021-04-13 [facility] 1.2.840.114 [id number] Univers 15:42:05 23:59:00 Encounter Lailasonyachelsy [place] 350.1.13.10 ity of [place] [id number] Or dical nal 843 [facility] 2021-04-13 2021-04-13 Outpatient R [facility] [id number] Univers 16:00:00 16:00:00 JOSE saunders o ashley [facility] 2021-04-13 2021-04-13 [facility] [id number] [employer] 00:00:00 00:00:00 Lailasonyachelsy [place] 350.1.13.10 [place] [phone] Or dical nal 059 [facility] 2021-04-06 2021-04-06 Telephone [facility] [id number] Univers 00:00:00 00:00:00 Jose [place] 350.1.13.10 [place] [phone] Or dicca nal 9 [facility] 2021-03-29 2021-03-29 [facility] 1.2.840.114 [id number] Univers 12:52:59 23:59:00 Encounter Jose [place] 350.1.13.10 [place] [id number] [address] 2021-03-29 2021-03-29 Outpatient R [facility] [id number] Univers 00:00:00 00:00:00 JOSE saunders o f [facility] 2021-03-29 2021-03-29 Orders Doctor CARLA 1.2.840.114 [id number] [employer] 00:00:00 00:00:00 Only Unassigned, ROSA M 350.1.13.10 ity of [facility] 4.2.7.2.686 [place] [phone] [address] 2021-03-09 2021-03-09 Orders Doctor CARLA 1.2.840.114 [id number] Univers 00:00:00 00:00:00 Only Unassigned, ROSA M 350.1.13.10 ity of [facility] 4.2.7.2.686 [place] [phone] [address] 2021-03-01 2021-03-01 Office [facility] 1.2.840.114 [id number] Univers 12:59:23 13:42:14 Visit Jose [place] 350.1.13.10 [place] [phone] Or dicca nal 9 [facility] 2021-03-01 2021-03-01 Outpatient R [facility] [id number] Univers 13:40:00 13:40:00 YINKAJUN ity o f [facility] 2021-03-01 2021-03-01 Orders Doctor CARLA 1.2.840.114 [id number] [employer] 00:00:00 00:00:00 Only Unassigned, ROSA M 350.1.13.10 ity of [facility] 4.2.7.2.686 [facility] [phone] [address] 2021-02-13 2021-02-13 Outpatient [facility] [id number] [place] 11:54:00 11:54:00 0823 [facility] 2021-02-10 2021-02-10 Outpatient [facility] [id number] [place] 15:56:00 15:56:00 [id number] [facility] 2021-01-03 2021-01-03 Hospital Radiology [facility] 1.2.840.114 [id number] 15:30:00 23:59:00 Encounter Trmuan 350.1.13.10 [place] 4.2.7.2.686 [place] [id number] [id number] 2021-01-03 2021-01-03 Outpatient R RADIOLOGY [facility] [id number] Univers 00:00:00 00:00:00 ity of [facility] 2020-11-16 2020-11-16 Outpatient Dewey[facility]W [facility] [id number] [place] 12:32:00 12:32:00 0526 [facility] 2020-11-09 2020-11-09 Outpatient [facility] [id number] [place] 12:38:00 12:38:00 [id number] [facility] 2020-09-19 2020-09-19 Outpatient OMAR TRIPLETT [facility] [id number] [address] [place] 12:08:00 12:08:00 [id number] [facility] 2020-08-19 2020-08-19 Outpatient OMAR TRIPLETT [facility] [id number] [address] [place] 14:53:00 14:53:00 [id number] [facility] 2020-07-17 2020-07-17 Lenka Mckoy [facility] 1.2.840.114 [id number] 00:00:00 00:00:00 (Out) [facility] [id number] [place] 4.2.7.2.[phone] [facility] Office Building One 2020-07-16 2020-07-16 Telephone Lab, [facility] 1.2.840.114 [id number] 00:00:00 00:00:00 Fam Pob I Health 350.1.13.10 [place] 4.2.7.2.686 Professio [phone] nal 044 Office Building One 2020-07-14 2020-07-14 Laboratory Lab, [facility] 1.2.840.114 [id number] 16:12:27 16:32:27 Only Fam Pob I Health 350.1.13.10 [place] 4.2.7.2.686 Professio [phone] [place] [address] Office Building One 2020-07-14 2020-07-14 [facility] [id number] Univers 16:20:00 16:20:00 CARLA saunders [facility] 2020-07-14 2020-07-14 Letter Doctor CARLA 1.2.840.114 [id number] 00:00:00 00:00:00 (Out) UnassROSA M nino 350.1.13.10 [place] [facility] 4.2.7.2.686 [phone] 2020-07-09 2020-07-09 [facility] [id number] Univers 18:40:00 18:40:00 RADHA saunders o f [facility] 2019-08-07 2019-08-07 Orders Doctor CARLA 1.2.840.114 [id number] Univers 00:00:00 00:00:00 Only UnassignedROSA M 350.1.13.10 ity [place] [facility] 4.2.7.2.686 [place] as [phone] [address] 2019-06-22 2019-06-22 Orders Doctor CARLA Camilo2.840.114 [id number] Univers 00:00:00 00:00:00 Only Unassigned, ROSA M 350.1.13.10 ity of [place] [facility] 4.2.7.2.686 [place] as [phone] [place] [address] [address] 2018-06-05 2018-06-05 Orders Doctor CARLA 1.2.840.114 [id number] Univers 00:00:00 00:00:00 Only Unassigned, ROSA M 350.1.13.10 ity of [place] [facility] 4.2.7.2.686 [place] as [phone] [place] [address] [address] 2014-04-05 2014-04-05 Outpatient OMAR TRIPLETT, [facility] [id number] 12:26:00 12:26:00 JOHN -[id number] [facility] 2012-07-09 2012-07-09 Outpatient OMAR TRIPLETT [facility] [id number] [place] 11:03:00 11:03:00 JOHN -[id number] [facility] 2011-08-08 2011-08-08 Outpatient OMAR SILVA [facility] [id number] [place] 10:00:00 10:00:00 , BABI -[id number] d [facility] 2010-09-29 2010-09-29 Outpatient OMAR TRIPLETT [facility] [id number] [place] 11:57:00 11:57:00 JOHN -[id number] [facility] 2008-04-05 2008-04-05 Outpatient OMAR TRIPLETT [facility] [id number] [place] 10:11:00 10:11:00 JOHN -[id number] [facility] 2007-08-13 2007-08-13 Outpatient OMAR TRIPLETT [facility] [id number] [place] 10:15:00 10:15:00 JOHN -[id number] [facility] 2007-05-01 2007-05-01 Outpatient OMAR TRIPLETT [facility] [id number] [place] 10:41:00 10:41:00 JOHN [id number] [facility] 2007-04-02 2007-04-02 Outpatient OMAR TRIPLETT [facility] [id number] [address] [place] 12:21:00 12:21:00 JOHN [id number] [facility] 2007-03-06 2007-03-06 Outpatient OMAR TRIPLETT, [facility] [id number] [place] 12:21:00 12:21:00 JOHN -[id number] [facility] 2007-02-04 2007-02-04 Outpatient OMAR TRIPLETT, [facility] [id number] [place] 10:52:00 10:52:00 JOHN -[id number] [facility] 2006-12-31 2006-12-31 Outpatient OMAR TRIPLETT, [facility] [id number] [place] 12:36:00 12:36:00 JOHN -[id number] [facility] 2006-12-26 2006-12-27 Inpatient OMAR DAY, [facility] [id number] [place] 12:27:00 12:49:00 JAYME -[id number] [facility] 2006-12-13 2006-12-13 Outpatient OMAR TRIPLETT, [facility] [id number] [place] 07:39:00 07:39:00 JOHN -[id number] [facility] 2006-11-13 2006-11-13 Outpatient IOANA, [facility] [id number] [place] 13:17:00 13:17:00 JOHN -[id number] [facility] 2006-10-30 2006-10-30 Outpatient IOANA, [facility] [id number] [address] [place] 12:17:00 12:17:00 JOHN -[id number] [facility] 2006-10-23 2006-10-28 Inpatient OMAR CASTRO, [facility] [id number] [place] 13:25:00 10:30:00 ANJUM [id number] [facility] 2006-10-22 2006-10-22 Outpatient IOANA, [facility] [id number] [place] 14:28:00 14:28:00 JOHN -[id number] [facility] 2005-06-20 2005-06-20 Outpatient OMAR TRIPLETT, [facility] [id number] [place] 12:12:00 12:12:00 JOHN [id number] [facility] 2004-12-27 2004-12-28 Inpatient ER Neret, [facility] [id number] [place] 23:09:00 12:00:00 Tomasz [id number] [facility] 2003-08-11 2003-08-11 Outpatient OMAR TRIPLETT [facility] [id number] [place] 12:49:00 12:49:00 JOHN -[id number] [facility] 2001-04-29 2001-04-29 Outpatient OMAR BUCHANAN [facility] [id number] [place] 12:00:00 12:00:00 SENIA -[id number] [facility] Results Test Description Test Time Test Comments Results Result Comments Source EXTERNAL MAMMOGRAM 2023-03-21 15:57:00 Test Item Value Reference Range Interpretation Comme nts Radiology Study observation (narrative) (test code = 66083-8) JUDIT (test code = JUDIT) Please see results in Care Everywhere. Keiko Mcfadden MD - 01/29/2023 CLINICAL INDICATION: Patient is a 67 year old female and is seen for history of right breast cancer status post breast conservation therapy. ?Right breast pain. MAMMO DIGITAL DIAGNOSTIC BILATERAL W HOWARD Digital Mammogram evaluated with Computer Aided Detection (CAD). COMPARISON: Prior imaging studies performed at an outside location on 08/07/2019, 08/23/2020 and 09/06/2021, and at [facility] on 10/26/2021 and 04/27/2022 were reviewed. FINDINGS: There are scattered areas of fibroglandular density. There are postoperative changes in the right breast and right axilla along with diffuse trabecular thickening and skin thickening. ?These findings are most consistent with post-treatment change. ?No dominant mass, distortion, or suspicious calcifications are identified. In the left breast, no dominant mass, distortion, or suspicious calcifications are identified. Tomosynthesis performed in CC and MLO projections. IMPRESSION: There is no mammographic evidence of malignancy. Recommend continued clinical management of patient's right breast symptoms to include correlation with physical exam to determine if further evaluation with breast ultrasound is clinically warranted. Annual mammogram in 1 year is also recommended. BI-RADS Category 2: Benign Finding(s) These results and recommendations were personally discussed with the patient at the time?of the examination. The importance of clinical follow up was stressed. Exam End: 01/29/23 11:14 Specimen Collected: 01/29/23 11:31 Last Resulted: 01/29/23 11:31 Received From: [facility] Result Received: 03/21/23 10:57 Lab Interpretation (test code = Normal 94113-9) [id number]:07:00 Test Item Value Reference Range Interpretation Comments Radiology Study observation (narrative) (test code = 33085-9) JUDIT (test code = JUDIT) Please see results in Care Everywhere. Genesis Pichardo DO - 04/27/2022 CLINICAL INDICATION: Patient is a 66 year old female and is seen for breast cancer MAMMO DIGITAL DIAGNOSTIC RIGHT W HOWARD Digital Mammogram evaluated with Computer Aided Detection (CAD). COMPARISON: The present examination has been compared to prior imaging studies performed at an outside location on 06/05/2018, 08/07/2019, 08/23/2020 and 09/06/2021, and at [facility] on 10/26/2021 and 02/09/2022. FINDINGS: The breast is almost entirely fatty. An irregular spiculated mass in the retroareolar right breast 0.4 cm from the nipple measures approximately 2.7 x 1.9 x 1.8cm (previously 3.6 x 3.2 x 2.7 cm 10/26/2021). ?There?are associated pleomorphic calcifications within the mass and an associated coil biopsy clip. MDA pathology review reported as IDC. ?There is associated nipple retraction. U shaped biopsy clip noted in the right axilla with associated node consistent?with biopsy proven metastatic carcinoma. Tomosynthesis performed in CC and MLO projections. IMPRESSION: 1. Findings consistent with interval response. Ultrasound is scheduled to follow. BI-RADS Category 5. Known breast malignancy. Exam End: 04/27/22 12:07 Specimen Collected: 04/27/22 14:11 Last Resulted: 04/27/22 14:11 Received From: [facility] Result Received: 09/03/22 15:07 Lab Interpretation Abnormal (test code = 13649-3) [facility] [id number] 16:48:19 Test Item Value Reference Range Interpretation Comments Submitted Clinical c3gxbJSqLFMap2kfBHFwpKBh History (test code = ZzEwMzNcZnRuYmpcdWMxIHtc 23832) rjAnLMutl1YsW9RuJnMpPOsa bnNpXGRlZmxhbmcxMDMzXGZ0 emSyZMXfSZyfISGlABzdKk5l bJIjuQbmJcIoYUDrl4qrpjFG ocmbgSj0m6gwXJZtUnH8lFQo ZYmxU8ewujQkcHIbZFLvEGo5 tT52KIEgnO3mcVLrZQxoutWl FsV1AUgtRYVeScS7PFSfhOZa SVXbQ5ahVCGaEPucUVUiYPqc fUIqQBZ3sKheo0F4iPQmqXSt hKnjJiHeYiIeOpIFm4PeJFx8 iJdpL5BbAIEyRyS2tPHaFIAh JPcySQClQLPfizW4rA14FEzh reZ4rUPwp8Wcu59iy143iH0d qVIeGYQ4KIGzJHQfjAHoEXAs IQI2VSMidJYzB8mdIVWvAH8k sdkrFDkkELjgVEYqyDV0KLOj uDOxQ1VoSJMjIBnvEELejmd1 WtEyYw6xiYCqnMejPCpsv9qy y6igoTPeVuq0QHLnYfRaFbyv CKnkc8Igk4vmHVIcik1eJLM9 vRYrgYpah1U1gOBzDEHlvXUm psMaYKYqPuD8USrlCT8qks15 QSTqRTB8ie0hiVFbgDxshkNq tGTkDDkzW3JzFKHii115XLLb C4MbTRJet9Y1qlSpMtEkOJUo mRK8pjK9WDBrIAj4zASyfrA2 xcKrzFFwM7jmlK5fNZLtLP5k pcccp2beVWrwRFqaCLWmcJZ8 bxP2PTSkbERcT9EzsL0uJHKz BEhkRRDxsup0WmOuKp1gtHOi eTcyMFxzYmtwYWdlXHBnbmNv bnRccGduZGVjXHBsYWluXHBs YWluXGYwXGZzMjRccWxccGxh vX6tVtVlElXgYKhlAD4rZYQb W8qjnMZfIDSmQOJlW6bjMuIb kY3axWejDCvunjSeSUqhCtgy fBUinKveEiSvrZV2LYIswcCa wd2gBAPgZiLvvXmyoVHaVT6a yKWaUaXlNMD6WPkHNAMgLWTg XVxwbGFpblxmMVxmczIyXGxh hnvkYZAdMMimV6zwVtBtDAUo gJpqYAslk5LfCLBlAAAkGkHs cGFyfX0= Diagnosis (test code e4gphSFlXFZdiCRjXWHwTtgl = 34) snXpFYIubPWpP4AlwugbIUwi SW6aBB1zsDhbsRCqzWYiCNYc HeCfj1rae339xFTwt2qbGHYR zqvohPe9lQnvS99hg3F7Nutt F9ybMMImPMuyIKWeWBqkrTOm AHg1FTXkeKHtlfAhXkQtBDHc kLArbCC6GDXzAG4wedpcCIox UIhhHZPtzzC9DSGdqOIzH8Ki MBDeJE1jsxbpOYV9LAebQGVx JUV1HbFgCLCsm1Panxm7DkIx cGFyZFxwbGFpblxmczIwXGNm MSBBOiBSaWdodCBheGlsbGFy oRRrXN41yN5raWCqoZ4umCWk o9JmMMRyJlfzTDQoqWe4JuEh bQzkFfVbHLOyFXTWZJVDD3WY GLxJNUZRKmYNUg7KPAUHFxDC CjUrF2UqNBfYDNpPIODKIW4Q NCTTBucyGWFgMEQCB2ZKQRKG GD3BTuRXAQOSU8kJTSJZSbL1 RHT1WQ1IHtchMTIsTDvKThPW LUDTLQpRZhBPSKLRClGJL265 OU7wvEAlVOUrhNottGAkEmge YXJcbGkwXGxpbjBccGFyXGNm MSBCOiBSaWdodCBheGlsbGFy qZTqGP65zQ3fqTVizU7hvLGr p8SkZABaQblgTQDtzTd7GiUs xDedMlPnEOFuVHYQINESY4IR THxHOGZIYoTRFl8ZBIKBGtYD JlYkFFcCSJgxCc5OJV5xbXJi WNZHWNYRA0FOJ4VKAMKrQQfP IR7TGZ9HSoFYv5UwsVKglkSw FexmDB8idOLfVWvyMSrooB1k XHBhclxjZjEgQzogUmlnaHQg QEkxpFngdanjo4PdjZotLUlr zKqktProec0gDLYhComzjLUy XGxpNzIwXGxpbjcyMFxjZjAg K76sGBd9yVDjCQ0zOPNiWF2j YOB0eV7hLHThAXIfsrQdLXMx zuyzjTIwmBwqGOhqFYDgE3Vn LKU2HETdS1h1ZNZ0nLzcRFL6 OLJqsqYuftNcMHl1tFViEV8g WQYoGhR9GWOlsmmorLoyMRtd mN06QtMqP0ZkDHE1tmMfoW4d nNQxa7Aopmxcku6pnODsw7Kk yMObr8DfqU3qlZFdAGydQMws lX5lLPYfchxzCxGcQUzqQrto yFRmj2XjrNTsxUTkDK2hg0Kk T4UysNx8EDXggzkzOUScQRvq QkZdFPrjbjcuHAf1vKUrsGqy YYLcvQj6LtJzaIbxIBMeFDV9 OwJ7YHq6sRO4TQZcpHcxWkVb TYZ3LZUvJKd6cQIcTLQbmSf1 ArKzVJI7DvA9SOv6hYzyLAEh sHk6NVEtXPK0TVB8KMf5pXuw ZrDxjMxkGQP4MGOQBWBCNXFB XNSIGuHSF8uCOQKHVBXAMZ4T YJPkB7cCJESPFvPOUA8XIvXa RUZGRUNULiAgXHBhclxwYXJk LOxgOMD2WXquoD82VxOdzEit MRV3QIw2zZXkcUxsIYSokOiw FOJtCVA8BqM7UBw6oLR9GWCz qHbmUoMdKBA9YNMxDWl0nMYz JAKpxIg1IlUnXEC4XtQ3DWu5 yMndWJUxuVy9XOTtSAV5VEW8 QVl3eDxbZkJkjRyxFYD5RPh9 eDEwODAwIEludmFzaXZlIGNh jvHzjw9jWWSsszPnqPTzzmHc WVE0nW0jNPFaFRKfTiKgvPLv v9rcuNN5IUy4CWLnGYL6DCXf P48fOACoxVEgdOBailboQIVs uu60sX5oqRJnxPLaVVZdRrH8 bL7zvqZcQNpywEfgmir0nWKm gNWqaaQeNiJnCHCjeuESt7Fr cBKvw5SyO3crrZIbKKZ3P1Qx aMWvXJAqaG3gjZPovY7nv4u5 dSAoRENJUykuXHBhclxsaTcy KBqauUQlcWqqXpLfNS1tZIUa ZmluaXRpdmUgbHltcGhvdmFz O0KbIKQgoX07BSSga92fzCIf iJFqpfUbYsnfPN6yAQTetfky hUS6PKPrUafbThPiOEexnmW1 GPLgXG47HMWrkuFnE2JpQ3dx n08jSJlgMLvyq1NwfNhqowBu NC7fBLEoi19bhTnfJQVwu4Bb dbtzutLgYYOeoD79QEMZMMFm rYIaXD33MM5fNQHdh60ccUls EJKuj5NozpppunGsFDMtzA7b DWHlcNEjPD29cLKdKN4apnys iuWzhI5gATH6oVWqURWeH05p DnNetTCuCTBlhU3zjKHvUATa yeZAoXHssLRkWX3oZRBwiC8o HQ7zHCJ4hE0hAFDkXEUfdwYf XHBhclxwYXJkXGNmMFxwYXJc J9BfQZB3KSJaB6r0FRDwRAZv vJJnCKViyFwqfwQiAIPrm5Te elshkwUvUUQtuH74XTAmxnnp ITXzABgcNOV9TZcrvF89HuXt gFugXDI5RAp7cKJjmVwbLWVi vFknAXNfWSW3AoQ8SQd0fKR4 BCNisMatMfBcAMS3TDZkNMk3 tXMnJAZpvLo4GkZfXMZ2KaB8 MSp7tPnvAGCvtFu4RPAsVVA8 NQF9JHq2uAbjScVssTcjAHC3 ESs9zNKbAVAgDGIoKRT3RNDb FZBnyYVax5Nzy3MnPbNgb1Br XJ9dJPVct6dmfSAeJUfuxyAw dYNuLQEzeyWzzy4mNFdlgBJm a0CapW1wLUPhuN2jyM6oV3Ub ZLVrc2RaBJkeHL3whJ8aRuqk GUFoL6FaB0hro44yGUzdLA7w rhIfsGozgrS3LM2cWSLtb50z oNmtVW5ywvLgISRzyX8zTCWy yqpuNPDgNRXgROxdDKLoA5Zw CKj4AJerBfLnY0wsi3Ruu5Hr aMQky4S4NEJkE3J6wMzdkXUt FGuoDpGkYAuahjgdFZz7pCRh dGxwYXIgTWVkaWNhbCBkZXZp I8RcLLuqc5AeHZJvv6OvoNW0 wO0iKS2xfJrxKHLjyorkBYGf ZJHgHJnhSNGdF7NdKNg8VSKi Z2f6DKA0vBiwLGP5MZUbbkWz bnRzIGxldmVscyAxICYgMjpc cGFyXGxpNzIwXGxpbjcyMFxj LeCuMDcqdDJhOQw3xEYzZF4k DKGbKHQioaA0eP2yciBhehRl KM04VfmzNQPueJqdHHjmccSc cGFyXGNmMSBJOiBSaWdodCBi qpZsu3Wgb2fqtmjunZOcVZni PsDrTEkqrwobBJlrIjVnY4co vlpqh4MfJ0S1QI8am8NvGEIe DjWjJHQhwO5kXUY3mGGbvSBr UW9kQCDmD3WmZNQoIPEkyIUp oGr1gEHgtKIvZFKbxoZ1zV8i avCwbwGjQJ73VlimMLOwoDFe ZFxwYXJ9 Comment (test code = i9afiFFrZOUocXJuKMJuGqzm 9835) zxGeOLUbcAAuR0YgxnmuBYza EI9pQD5ecVaihFFlkDGyFJXn XbYkb5ivi789xVHyc2nbVHDR ikehuBx3rSblB19wq1N0Bfuf M93dmLZsGYH2GXVsORVjoONk KCFlGAK2BVTkcFTlX8nyWYOf AH1qtslpZYalLFqfJUYpjNU8 RANkpVUeJ8KuIMRbJPlpKCSi hpk4OwOuRo1ufRPqyDimRCaj UIJqNRT6JaSwWHI3MXM6DAc1 gMTcWoNyiJxeLHlaXUI3LtTm PYo1uZAwBqNouMr5UWIcIRM3 JKa4YYf5yVN8GPGemAr3BnVm KUW1EioyXQd0aVs2PKUecMn0 XuPaBSK9DFHgBYEdyFcwaQ1e GzCgYBRWR2EnQN3cuYTvVhGe aWFibGVzXHBhclxwYXJkXGxp KyIaISClKIswnW07OgHqFFmi PB3jrU1rdxKpVjVHYRItARVo bVEJnzqyWQZ8HTH6cR3uRESo TYR8DON0VAegBaJveR7fcUJt JYHlsvSyvzPhU4JgB8VyTAMi tDs3dHHvfGR1WR6aPDSai2pn zNJxFRW8rZ8wUPBqFZX4WPPg IRZulI18KWEdbjGnR9WhH3xs d70dTMiwSTLpGCOiL9FbjJYl WaTBWCMfTQZvzDMGNM9aNARo uCzodITmcuUtry8usEH1HtSL YHgaZGYdFR77ZVljMvRzGoHe TE8iXBw3wUCgWF6wBTCzRUsa bIvpTmFylJP9IBqxTCI9SCE9 DVUlRrQTIHPlzH7yuFN2VXSv nPFuFVFcdmStc9HpPGXrV5Gj jBBVZAVbp5Jiw1joPjA9ZF6v XHBhclxwYXJ9 Synoptic Checklist INVASIVE CARCINOMA OF (test code = 9864) THE BREAST: ResectionINVASIVE CARCINOMA OF THE BREAST: COMPLETE EXCISION - All Molzsvsrd4vf Edition - Protocol posted: 09/13/2021 SPECIMEN Procedure: Excision (less than total mastectomy) Specimen Laterality: Right TUMOR Histologic Type: Invasive carcinoma of no special type (ductal) Histologic Grade ([place] Histologic Score): Glandular (Acinar) / Tubular Differentiation: Score cannot be determined Nuclear Pleomorphism: Score cannot be determined Mitotic Rate: Score cannot be determined Overall Grade: Score cannot be determined: Post treatment Tumor Size: Greatest dimension of largest invasive focus (Millimeters): 25 mm Ductal Carcinoma In Situ (DCIS): Present Lymphovascular Invasion: Not identified Treatment Effect in the Breast: Probable or definite response to presurgical therapy in the invasive carcinoma Treatment Effect in the Lymph Nodes: Probable or definite response to presurgical therapy in metastatic carcinoma MARGINS Margin Status for Invasive Carcinoma: All margins negative for invasive carcinoma Distance from Invasive Carcinoma to Closest Margin: Greater than: 5 mm Margin Status for DCIS: All margins negative for DCIS Distance from DCIS to Closest Margin: Greater than: 5 mm REGIONAL LYMPH NODES Regional Lymph Node Status: : Tumor present in regional lymph node(s) Number of Lymph Nodes with Macrometastases: 2 Number of Lymph Nodes with Micrometastases: 0 Number of Lymph Nodes with Isolated Tumor Cells: 0 Size of Largest Eddy Metastatic Deposit: 7 mm Extranodal Extension: Not identified Total Number of Lymph Nodes Examined (sentinel and non-sentinel): 18 Number of [place] Nodes Examined: 6 PATHOLOGIC STAGE CLASSIFICATION (pTNM, AJCC 8th Edition) Reporting of pT, pN, and (when applicable) pM categories is based on information available to the pathologist at the time the report is issued. As per the AJCC (Chapter 1, 8th Ed.) it is the managing physician s responsibility to establish the final pathologic stage based upon all pertinent information, including but potentially not limited to this pathology report. TNM Descriptors: y (post-treatment) pT Category: pT2 pN Category: pN1a Gross Description s2fkyAXmZQZrtYHvATWsKkkj (test code = qgMrPHBxkEQcB8AapcmzJNsm [id number]) TG2zBT3ckZwweVMctFPlXGZp JdWnl8uea992tVHhb7enHIRE jgmfwHk8dQkuV16jz4W3Mjqt A3vqKAHgSTpqTPGsBPkeiXVj BVm2JVWmaZRpfpUfKkLiLXYo kAWxhBT0MEMiQH2blyrpSGpc FOhtVBGozkF1OGVlhRYmS8Za DGDdCI5hqadsPBW9YWzxGEYa RLI2DsRjSQUbg9Vgyzy4OrY1 LGfvZHMjS8WzR8NtZNsiKMQ5 TSOcBTZdGUHhKN5PNsJdOJSs Dpw4NZUvMGAQBARvGwB1WAr7 XKCLFRGcXBKyESm2NZU4YoDn TFJSIDEyMzAwMDAwMjEgXFxu aCBcXHQgMSBcXGZsIFxcbmN9 t9ksQQPzuSCiGBC2HYwpdOAg NTEwMDIgXFxkYiBPVlIgIiAx EBM3GiK3CwR1HKj1ZNJWWxXr BlKvKQTgQyPzKZSxSJx0LYx4 ZMbGYuCdJtWmKAX9LfGoNAZ3 ZSu2DMdnwJPaFPhzb1DvNtJq TMLyXAswngS7VTHuxaUgwBls tP1zRdfgfvGeXWK7ICUewspg DHRvUPPcYtEkZDYbX3fuHqKu XHBsYWluXGJcZnMyMFxjZjEg L4AgjNfrMBbokOtluCycis1z VGtlPVowxPhhhylrXGDtA7e7 CZI0oArsZCN5ZLFcetCrUYJo z2CwRI5xXPCdzLUjoT92tLEt NDStBSegISn6uVJbHMUbOnAh BECftoMkrG1aJGHdqFavlDJn IV7dHTE8MWvhS1VzvTdvliB6 aQBqEwItCPRpHFMhc3R7VcJj nNIqfS6bduRwYZIhn2nvUEQa ZyS1GAImWM4mw1AuFsktMgSm HtcaZLQfUWU6IyDghKKjQqHs fYQqPbQlN74eACqyqgXeZLNb LP6aIWEcUdYpYOMugZ1kVVK9 aXNzdWUuICBPbmUgYmlvcHN5 BQZawSZuEZ7dUR5vAUGDMLHC MBIzf3B6YHxiRCbqBB97ePBb DMGgj79lvfKcbK7ghrWzdYng SWCfO5W1hxLbTK6lTIome2Sf pVlzSUJXjLIrMPN7wE0pNAXu rgNjvPYiWhGor5SdbMWcNHTs yP8oiMWau8TgnjYuRm49NFzx NB96KOjcGE9xEWDbSARgNHWf YbQgyTUhSlJsuRElEwOmR72f GbQkK3QrbPujkaotPiKjSwH0 nTZrNc60TKDwGRZuu9SnFezt YPf8gEPmSW7sONRpvbC1NFKr zkR0oUPuL8Y9mVWuT158mUCu nxEjPpffbIO5PXPrwPSnNMGZ kUUyrT4sh2cshUDpqEzdkRyh bi0fUBKrvkPry9PfvLVemSfg g6JxpNvlctPdNCDxhLSebWU3 SBJpWR03pQYzfRgzKt6zZHYd g5nyriIadFFbha5fkNZjVWOp NFBaTTP7Wm2tdALiCBPgq7Do aVRmaWFlFD80DGMtf9Uoo4Us artrCLFxWq6dhH03ofkvtIIm XHBhcmRccGFyXHNhMzBcZXBp Y3uoMVFcXUNuCySVEKUDSX2S GJKVHBN7QLGqKXYxHDJ3lIKh B1onsSYqAGNvm4RokAToZKXd aR7elIRcy2RiYGIhcq40NC3m hyHtaeLytDNiYID2Ev7mvNBw QQeaYISoIX1xNURtt2TsoXDh ANWuoK4xfGQwv1SnVFShto06 ZM4ptfHczqEujWNsHRH6Gb1t nRZdVI4lITuscm59FJV1e8it tVLuCJqvDggywODblzZ4BAkU FSKBKXzTEjKnNU4oWJsITysR RUdJTnwyMTAxNnwxfFVTRVJ8 LGnqwTqevPs3s9xmwGQsn7x2 DMcbLTY3lKjZk7ghiJGnVGpx MbprxKFmkoZ3QYjGZVDDFGsI EzKlUM1qSQlIYucBDmR0XyIh WWO5JZsFY8TSbFV6Wvo9FDs3 xHycRpckoaZysIVaKtSrgN4u iYggdH8vLfJzNVdtPOPfI7Kb L6EwczM3XSDyotfyQiecuPiv n0IepCWoNKimSYPrXVKmULbb TSZzT4OKPBTcHERiEMN7CPNm QVt5MYzkE1MCUNZzTQK3IzL3 OLL4YxJ3CWq7FGFVOw5gBIAo ESE3XLJ2ZUC4IAU7HmKyPMWm GvYbNEHjCRDzERmtaNXbBA3l sXziZTBbFBFeOYT2QTVwgUXJ v7VuYIKtOoIKWfijZDYzvBSo XKskSiBqKKFmfDDFd7VlJVeg wNNduyswUKSwCxNtT5TbMKCv svJcfvPtCNm6dEUeDN3uRXVz UYV9fOvkUTI1OABmuJdupRHc jHdyeOCdzIAgjO1nRvAbVCye jROuqxGcPan4DQSwRRpzhcb0 edZdDtLbCOE6eob2vdR7VZEv DJ7fCmHkJ2XuHQzzVjDvAGVh J7QkvaFzVSEzWYIzVHXvbfWf vm98CP9he8RbcOlkdhApyqCy QMGoogodLCNpqvGmJ8WvOEOb zO2zbvkunfGjETPus0S9fK0z OP6mCFumfKmodz0xBEWgfV9x vWtemNFyHVVaVlEiNeW1lKnb kGdli2BuVQplLcDtsHWuApBs xQUdLjNwR92rACHufkvrdWf8 GINrB1Wrc21wLBB7aaXqBGJx QLueGCIqtN5eqGCbvH0at9rb lVQskPodrVxrvq0rQDGdSC34 KWDdCOqaPZU3FAJ4UQFycSKe g4hooeqwRQCWrfCpyU2eo8oh kTRgwAfczXoaks0bISK6saqo SPY7BWAgHW1nKRAnrVycTUj5 RGA6Rt5ijKIgDBKtetKBHZOv b3JmYdMpjxEmHZOjB5Vit60x IS3sYMTlva5pfeXxyYXulf5c KRHkuY9kMnjlJYBntKAjOEpg TZXql1NzCPkvtCdcZBGyHnTr kYVayRXtbSszNfmvvXF1WAku ZqomwA8qlTIDODZLVymHTmcd awIoWK4QAC8QQbXSJD49AqTw ZNL8GggQW6XNtLW9Bws9XGs1 zEiyYwfwrsTdiXLuEtDfxU0T CnghKudvwOO2VDynLjfmuD6r tQVMXLDCPdvTTfvfsaGaJR4P UF1KOR7ZvWNxJCY8wBX2PWAP KosucBA3fFG7aQ23KAKmWGPx qQUqQPqoY649FZQiUJltMMAo LsI1KPYkjYMqSFO0VT5jvBep NHK1DHsoNSRxQ7FrS9LbJDhf EHS9TQAdRlYbSVKaQE1BTyEz ZBWgYus0RTOzITp0GBw1BG5X NtRhUAXtRPWcSVR8PWJxICi8 BGzwKT0ADAJvAWG5QHw4QkSe GAWeNMwmVAk0XAEmCEdsdmIl PVqpZhznLDdcA77wxSHpHShd UiDkLBlpuAdxXAFiMZO9ZUSj AzpftOQpURZxitJui1CtLFts aYexJQSoFsQuzWybnQ4dHgwx haHtQZZxRPXOHR15sJ8owZSa nV5klZQwf8CqLWElvHiatJJz eSwgcmlnaHQgYXhpbGxhcnkg y1otRiQbTUJsq7MfRE6gWVLw tRNaLLXytjYxsg0nGuFdDZB9 vxj5gzIjVfSiMGEhdcBeNMTq MNV5TIErCBKGIKNzEYF0ITCo NWC4ZCTeOVYzjRFhd1B2aO2b RG4cDSOlIvAeLCXqpD1iIPW6 rZFumRWuTRZReSSkWVX7hW2v LYEgkvSdkZRrVKLtJyDhZ40v yD9pC0GuFBDnq1NoOKpsUQ6w nR5mRVGjh4VfWqqhZVt7sGEu PA7aLNGmTKLNfHBerX5aj9sq uONkvRxebWahji8bVREzoeUp TEFzDGzbmBUrCIG0cY6dWZKc VY7jHDS1Kw5vpALnMIXvriFy zdHygAJbbeZQQK6uzDGyFJXa xoBuk9AuSLrepGeuFBLjFsLp CCybCKXsfkUne6ShGJkbxzln GRq5TGCWRFJnzRUfbHZhiDkl KzlydSS5LNrxWqzwzX2eaDLU RYZFAvjAOdxgctEdVC1NER0O FiGEUC20NsAqAGP3F2hMJ5NZ yTQ8Kox0AKu8kDggAfwaddLf uIAvOtIftE9WV4zsStxudPO2 FBurOqiliF2glBPOFGEGOjmL BlneiqQwTJ9DGJ0CYU6LfWFv YUS3vJK3FWYNGwvbxWV0cBU3 dT74IKOdYULixQBkZGevY312 EWFfXDnlKQTcRhL0AEUjkDMd PJB7CN3npLgiLHS0TYbiFRKw D9HnE4HxZNvbDLT8XFHlEwQn BUCfPR3XHfNeQSZwSpf0EWFg TXh3WPj7IX0FSyMvPGHsPCGm QKF4EnZhNJa8FEfeNO1RJTZz UQP3HMsuMRHbVZHoMNhpZZd7 IDIgXFxzcyAzIFxcZmwgXFxu R85nmYSqIPmiKcJgXYwjkDnj AEGlQFQ4FPXzUXxftOBxSIIb moNcb3OoKBtpzZmhMGYoJhKk vBmfpV2gFjfxxjGeBSSgTPOV VJ13pY7izJYrzF7elOKmb3Bq LCBheGlsbGFyeSwgcmlnaHQg IUzpeOebrbrbu2vdNhGtZEOi k4MpOZ2aIUUwaTRwYKQskwGz xj1xKcIjIJW4qcv5akS0KSXv LK6qShSmS9PiNRdwBuSiWUFu dX7fg7bbrVSvsHgxbErdil9a JLJzNKKaQNBmpZBsysOfPA63 XBQjQZosZRfzKCN9CRM9PFGn iIXlw0arspauOFUPpRYvaX0o g0oqdKBctYixyQbqkp5lFCJs NFLtEBGyspvnhFp3INAkC5Ew p86fQJJfleFyr1IivNe7mNDa LZVbwEovWPn6CZKeMEUhnKai g7A6ASSfhhsmZDFtOMEvtiTZ QQPWPM5YMXXONWC9CNTkBSSi CICegoRmtG2ng2iokZJxrZkt pLqlwm5kUTSsUZFtGRQnm8Hj dHRlLiBccGFyXHNhMzBcZXBp N4uoFPLdMBLrcLPwdP4zVv8a mNScaS67ALE2TGYmMO0pASMc h4YrN2R1BSXpXMdtc9elJBNr RLwmv4GzZUgWFJECLO4YPT9f zAU1OMaAL1OOU0rLyXAgHYE2 dLP3BNOMHfxscRC8gTT6aR16 MGYfYXUydACiGYvmC551HYO4 CMKfUJecp1wgPCNiVEyoa3Gl APtXZGJKZJ2IGW6qpVM9DPoD X5LCQQpoZRXbHfl1oSWKCLP3 ZCqcpYjakSp1l9nalHJko9a3 KQwiFWB9kXdtmPLwvegpuhTu v3fhzOszd2SbnJXzEX4alZLu a9jeQSHhcVOnAWP1YEgbjTPl NTEwMDIgXFxkYiBPVlIgIiAx PRP7FeW0AgH7MUx2REQQRvSh CfQhBJVmNwWfDcqfWNs0VEc0 XJgVYiZdWzGiOUAaNNZ5GXY6 XCp4QShgqWYfDRucf0UaZyRj RTYdNUepgtO9OQIkbbIun2Wx LEHjWSXoZ1csDbWmPCyuDUL4 XHBhclxwYXJkXHNiMzBcZXBp G8bgFqZaDNWsVUjbECKdDvLp ZOvkUvPxAfGfFSR4GGJqeRfw qGnvmukykWFny3QynUYwvHVw WM7fo2RsS9PlzEt5RHcqM3Jn sCcippY1xJUyEaVrQRYoKLFi q9E2ZyMkgG8ogLSbnYw6V5qk w4LwOYCcq7EfYVuuecaet9Gs dGNoIGxhdGVyYWwsIGluayBt JDYrxaQiz5D1YUZfl0A5UQFh HYVtqI8ujrQhFJYll1huLMOj PwF7YPGgQ5XpHBzeEmBcWWRy O9BcqXJraLUxGXulZU75DFmu gANurHRjnM3bgGMkLXYmJIV6 FEHcKbJtzPN3FbVxM67sQGOk COYsYgKjLgnox9p3eHAuSLEq DJXpngBwc8xxUXc4LmAtiRA4 JtJsL97eRSCgecMhcPbbOH9y uEKwZCVfWA9qLFjwJV1tQCdf UX32VNQjCM3yXXHcEIEbpHZc pG7rfaWtoqAnegzlcgOwWEK4 nBVvOGLpz0I4ZMC2dOStiNPd mCMbmXFjurxerfpnrG1hRyOo uFf6Z2rtYBJtfJB5BHCgfTyh WK3xGRaqguBbwlLzn7L4EHTp d8TmKZCHjVSjc0XzQ7hfXQ8j sVIqk4JccLOdoUiiv6kpW9Me XNKlw26leXQ8CNIfoBC1ktXl UOMkSEbolX05ywG7HWCujIIf gf2wKXOyYErorW4tTBXvtoXs DY5wi7Msm7n1mNJniXSxy1Xn imRnUqY5CVIjCaD1YOJoSZRf bSkgaXMgaWRlbnRpZmllZCBh dCAxIGNtIGJlbmVhdGggdGhl JB6mnDFiXJSegrVvcBluPEZt ZCPpvhZyr4lxD5DlFzVmIOUK hDMmiBVlwzUzrv5li8t8UTA6 lSNiWDN2xtYwg6I0CJJuj3Pn eSNoZ9lhWBVwpjCjaSIkYcTu hYTwls0cZFUeHQOkpPXvhsfh ezKeTSQgdN3pESDhZiDdsPIe yi2aYHvcNcVlgD1rSY0uitcp us4mOAmcZHEvtGAavpQdmzVv Ym5zRTclmfE8CRW6PI2xvzJ3 rJ3oQOGgbaBdsCysGIIzPHmo uX8byXN3RNX3BKu1WPVvm49k CVPSVFFlb3GmbUMplYybHREy IUOsAFMeowtuSJCuEArcYG33 yRMwZWSjvH5twJinINAwFZWn bWVuLiAgVGhlIHNwZWNpbWVu IGlzIHNhbXBsZWQgcGVyIHJh DWiiJ6ZwsZxsWNEqczyoPETh ARWeTqQXTyusC41NLBfiVL55 NWAur1NtvMSvsR34CDYrp6I6 PXLcj1VqAmumH9pyHAZ2qWDc vJ0dHCNlxVPhDKasHtEcgI5n LWluaywgbWVkaWFsIGFuZCBs YXRlcmFsLXJlZFxwYXJcdGFi ERSZF8QTQ30jW52UKDkoSTKg eHuwFISwEFYqwDQolJH9FFXl LCBsYXRlcmFsIHBlcnBlbmRp R7NqZBMrdBWqW9qmQhOCSKvs MXLpBTQrsuOseYnjt7JyZUfz INVzkZXwMGHgCfCNQAxmB1tw W6bvKGCbtoObMJvqVYJscMBd GDWnNqMPTI7MVXOzPI5fu2Uu JLVth1XsBWCiPSX5qHUhQCQz N7G0lKPfhfTpeAEbohqdmWMh H9acAFatYWGimBKxHCJ2GxVW YQJpTO2iWZRhRfogzAGynpCa s2VnF1mhbKEvUIwwmIxqFJFb sL3oh0nmZ3josKDxokCsdJvi MODeBJsfJDCqIRIhMCutS9Ly eWP9pFQdhGUjrK1dg4mrZ0Nk LaE3ZLBoLQvbzLYugUBdCQRo xgQfoxQmY6CnXLQwxVXjX2qk VbcbOENmmDPmMAYjrSSkpT1f Lq4nfXDcuA03PQP7XiGgFY1w eCIdESHnYwOxDMNaF2xmIIZd GEHon4SsF7P1QHReMAwgp5pf FDHiVZhfi1YyKRwZATWKMP7H OX2uiGB9OFoVT6RLI4aViBAj SAT9rZO8OSHWTalflXX6mUE4 vV96SBRrZFUraEWrJIdaQ450 HJw3DSOxFUcvc8hlZUApPCbb m3YzBCpHPYMPRX7AZH7kfBG3 VKyBT0DXSFqxAAYqZos0jSPR EED1ZFkgtCextFt8e8dqtGXu s1h3RPrwFAO0jYoesNIbgxfq lwTsb1xptPbfz0JcaYDwFL7z nWRet5ogUCRlvQBxKHG4ZTgw aWQgNTEwMDIgXFxkYiBPVlIg QwBrGMX8MvI0FdU9MSy7KIZH VlMgIiAgIDUyMzQxOTkiIDk5 YNi6ZYfLMcMkZuPoMGB2Xxne FNP0XSc3PJvzpIMkTGivv7Fe YrUmJUPsMTmkrpY1OQQznqSu i9AsJUPnDBVuP9rlDaEmGAgh WRO1IBIqensmCEWxMINqOpVt FDXzK1yrLmBdWOOsNUdpUUJa SiNdBKcyGwUjCnVoOLE0LTQn iMestKfiUYZiwRVhh03cvZGt QNTarI0nMQMzA4u5FYNqBJHq uZGgMRZmdXztdlQrTGWyh9Jr odlfarShWAVbnV6iGAWwuQjf XC6bltniHCEdkEXaxXZmC0ms JC4zv6QyAznqMdCkTmfsTQHh GVF8WdXhsSH8IrAedHQqClRe R77ooP7dgPyesaZaAaHjaFLe r3AgdSHox6BkyUimc6SiSFBx BKZymCHoj3QwGL02LQVkKwep rDluZJA7pbjmj12dr7k3nPPi yQhtqgZlvqM0tWJegVI3LOJn DTKguN0oNEBSgDIpzFS7BNVj NARnfQ0vvGPbzY3aFAZdCsi9 ZSBhbmQgdGhlIHNwZWNpbWVu NZmvJJDmS4Bru87qHI4cXCW6 qPOklVXoNMCqrjAwusQjL58m lB7lYQJbp8FgkUYhFZ8adF1q llNqsUC0YEfiy7ttuY3bbRlq uNBpEUIcsQQlh1VkjAymv5Qj OPfvyPlzMJLlIFFfl4LpIGHn g4Zwe4wbbOEjEqpnaw95igO9 mQHmsYWpEZMwkEWta6SguUT3 jHJgKUNbE4Yer77oXYGcJIJb rEFxhZM8YRHwqT0lR3Ldw4J6 hQFhLGXwRGTcZP6hiCDlGCZw buZshRYcCUNvCkKqPLIkF4gb KHAhVOUrlGGngC5hZl2ebCOe iS1zsFMsLaG5EXQay13dICAu NS4gBCUkLgLirDUbqLXnhDas PdpiyKL0IGhrYpwafL8eyRXX UAALPnxGWzveydOwLS3KRK8D XkGFFZ20XrHoEAC3RlcSC3SZ dYG6Lwc6NYn8lZbfMrabphBh jQNvZtDrpU6XErwdIrsmjZQ2 QEcfSnmtdS6iwRJLWJATLdzR QjwydgDxXJ4MUN8EXL7JtYYc RYU4yCL9HRGLTjraiKX3wLA8 cD75RMRsLYSphLLfHGciA761 IIFzQEaeZHQyCkM4EUYnyUHp HNB3XW7jtIgpCJQ2DJjdOJYy R8LyJ8AhFShoQFC6EUQzTlSw YYFrIW8PWyUoEIDpYsg6YPHq DWv7LJe4PX6WRfCzKSMjALXn HNJtGFGaYOc4NVqnPD3QWRCn FPM2NGH2ETFjVDApDOPnVJv4 IDIgXFxzcyAzIFxcZmwgXFxu V50dhOWuDAxuKfRwLExsvCuj GLVdXAI8WNQhYqthpZNoMCZa xqEub6JqUUrbfBwpNYSfWaEs i6XnLSngyRcaQCSkMgXurAts bS2gMbpvebYoXEBqXEOSzXQw aJV2IVriCDCzOHI1UBIeTCI3 MOVhTRT8NMnbqFijhE6rkLFn EJUtYA3trHNes47coPWge5Vq UnwjAfQjNrceCLRrI82if2kz uCLgg2FoUED9prVex4f9U7Ya aCLRq9D2NHBjK0A1fTTaCJYb nOHsmwhgEw5qIGjuDv8tGFxj RH02RVYlKDlnxLveGPC1JXBy MXGtz2hdlSSspWRwnJ8bXKtc ZI3vOMCaEZspHIuilys5dBXs eSAwLjIgbSBpbiBkaWFtZXRl rehzSM7yEFTyS95hJhnsNA60 WOZpTsRibBYyEKZxPU7ksOQa GfSWakOur5W2BGViy5J0PAAg wpFweKLiO7nvTM3mLQ9bW9Ek ZyBlPP9xPR7kISKon1BzX3Du mHS8DFNLDcHiKKG3PTQoGBMZ PzWKxPFxs6MrV4bgJO2jsERr Wq8yWJbuv0FuFU6jxWeuTPzw zj79YXC7f7zszMBwMIkeTkar sICcigJ2MFaPEWFUYYkOIuOl VT7yCIbPGghGDHbXZgokXZZc Dqu3sJAICXK4YXfusTdroJj7 d0wkhGRdu0w3MLvzJKE9kR1F h4xjqIPqUZzoShbydQDqqeD4 XKrCHXJHFLcOFfNvLK3nENwB GfnXLmU4UuPrGSU7I9qAO2RT wMU7Pqt3THk7uZijPecclgIx hAEmTcHhcQ3owEjcuC0kQjIx ERhxUIRoB0BvV6VnizZ9SIGt ftnwJsvphDpnu4KamGVkZRjf ANRuJHRxGDdrASKeQ5BZWAOx OPFqOGV6JJPaIUk4RKgxW8HS SDAqPSD5EtP7LcQ7QdH7NSv8 GPKRFx3uCIIwIUi7AonnFgL1 YSQ1OoMeXTLyQeNoEIVcHNFz VLgqfYSuJA1uhDljUKHrUMPj UVC6HSMgaSHVc2XiDZMdYdUW OlxwYXJccGFyZFxzYjMwXGVw uLPFy7UiUWuqdHDvdzauQWTk BwKfN1CzOWO7sGbuDQE9ZVZm bnRlbnRzLCByaWdodCwgcmln eYPkFOhttVuynediF96eyTXi wFPknWA5GXiuOKLmPKGbAQRl gtHaDFRtARR2SNHxMOSEQTqh MQY2BBSfYbP5PVWlKhQjlRFa n1O1vL4fMY1xXQKgUrBzIyQ2 xLqsiWxil3HlBzMTxUHmy8Rk G3kfKM1ukYUorJVdiSG4UDQp RN5iAPTym3WqK3CwRKF7dhNk OP9rwuV4atR8ARDhZxKjl6Uh rLIwFJOdhX0htLHih2RevfPv OK3jeE8kUPGux47nNH81YHId OCBjbSBpbiBncmVhdGVzdCBk tQ3wmrXls03xXZCzoghcRVKe XCJjmvCHDTPROP2VANXKNYE0 QZkyKYR9nDCxSHXmd4MhqFUr YLFihU2mqHOag9DxetsoJMSh MSLpaAQqlV9zx3wiuLLmaUde fQbdgm8aSDT0RMpcEHF8lQHk XMZnd6UxoBYsNVVzjW9ceFYy l8RrcixgARUvMM4cDGSqm2Ht bGUaAAOabO4ieIGsr6TxGIeb eHRzF5PeTMx1HLi7OWGmmsJb dK0op6wmuNYmjElzkYjxjh9c DPZpmCOkw1UmyYGbMNroSXMq KXbvAH6rBUEpd2BpaLQyEMGm nX8mgSHed2MlWLkdQIPnYIns jIEpVWE9sI7fPMBrPabhIJKj eTRqQHBmJjVaYQSeE5kiMKFb XPRrnEKzlV8dZn9zfWLxwM9z gDSiXfW0JKEwi71cYSToKG0u MDIyLiBccHJvdGVjdHtcZmll tFV4XJwgImgyfZ6atNEWIWRY LhtBYuldbbAlKN4BNB9TCsNM PJ90MbQnNOE8VTvDI2RRcCU8 Rxd4ABs4tQfiOuwyqnXtxUCs WuPszR3CImibOtubyOU1RAjv SydxyX9jgIBUEKJEBdfLCpsm mtPgBC2HUW7SFP3KwZBrDSR6 jIj7VYVIDwpkbUN2sIM2pE38 PJFmXBIggPVmVHuyY333QGKi CAbaBPYbNsK1EWPzqFWiRIQ7 XK7nxAfsNEJ4OZdeCEPcO7Qk E2WdLUwdJLR3ZYAbOjRnBGJw OK4HHcNuNARcUam6BLNwFKz0 ZJh2DH1SPdEhJJXmWRTuAPDq YDKgANk4LTmdNA4HXVEdRHH0 EGD2BCRgZTKnRJIbUNn3SYOa TPeeguYfNNkaLegnLJhnS44h cGFyZFxzYjEwNVxlcGljWHNi EPE0AFCbIChkfVNuEVWsjbRw g9DwRItxdXseAJKsFqHshNxc sZ0mEktkjiAjIJReRNMDbaMb m8OmUOIcH1u6WLXmp9suLWNd nfOsSJYcGAS2HSXcUCUQw38r oUR0dwKwEgY8j90dVzJjC61h gvZiXW5zQMAll9mzWISaxwI6 kkddk6wkUWFti8cuOVefiVoc gT6hDRSboVnxDrKanJHil6Bu nQY9DRAfh7Y0GMCmQ1thSPsg iUvqHmX8qwV8UcGeuGRkWzkn gHFyLiLaG11lRHXzE3Jdz27a olbrklG6LUHrdjX0joBouDDy j2LxjPFqyLLmlV27RCfuTrNy GHDvEILtmMPrn0JkCvRgBRGh TL4dNADba0VuidI4UUeto6rx hxLzeuHdq7ZiBF0zRUFqWASg RUInwsNggUd0LKIgSLM7jJ2l DOupVLK6Yr9adCBtXVTanqNc LWKdBKF8SCVnYEJyBZGgugvn YXJkXHRhYlxwYXJccGFyXHNh SlTzLZPeF0pnPOUpIPMlxRWq oF5rSo8vfLFjsC0xcCRzGhN7 YVXyh02lHXPqWZ0eCKPjIbIt kPYpxPYadRqyZixltXD8AKdy EfashF0ciCLZXUOPPtmVKfbr sgLoQW8QZY6FQpRECM93MfIo HNS2XXfVJ3XVtBC2Mcu7GAy5 yZckVmqxwiVgdWPbAsJarA9H OfjiPwonfHB7VYrtJweipQ7s hOIHQOIGDwdGCggpnyPiSP6Q NV8CRL6EmCPuIEZ1nCq6WHYH AtvfaJY8rWY6uA54AMHaTWHw hYFdRDmeJ971PSGwHKdlDFXm BeD2NJDbdWTqJBS1XN5kuPjp LNOmW8KaK1NuxfS4KPHfwp4= Intraoperative m5pyaWKkEAHrxYSoUDTjDxav Evaluation (test code iuQtNLWetDFpY1JovenuHHps = [id number]) JM5yOM1ksFrcgWHryYGeAZRc PsAgn7tse553gPEur1rjYGSW fnmdvMk7lLrfF39ca4Z7Fney S6jqZLWiLPmtJCHtIYpcsNGm JIn5UQGphETzwoHbSiUvFBGw qUNipOV0UQZeIR4kbwjmRDzz QVczFNSudlQ2LQNwqKDmZ8Wm QJKsDR6ephofSAO3FYhwQMHr OME5ZkMhCJEgy5Cohcu4JpS7 WHroFJBoZ0QeM6DjIPryPLH0 LVNnCCAdFGUtKY3SLcQfTPJe Rwb6VPAiGROTMOVyXaR1SJn2 VRWNIEGcVRNpGDx5HIX6XtEf TFJSIDEyMzAwMDAwMjUgXFxu aCBcXHQgMSBcXGZsIFxcbmN9 f3ohDSIviGLxFZM7XQzeaTHf NTEwMDIgXFxkYiBPVlIgIiAx TWY8JwQ0PsG1AEs1DNIUJrXv FhMnVALjQfPeCIExIUn5QQm3 IEhOTyAxMjAwNjczNTIzIDU1 BCt1RLmzfBBwOLwpw1JrFoUp CXSvPDssewB6BLXutmTidWla eV2aBolifhUbCNI8FYUpldus GNQdYITlOmYvLFQaQ2gfBpLl OJWqBLefZZVrPmEhYXMKDV15 lK2djEOxnQ8nwXKfn5KkPCXt eGlsbGFyeSwgcmlnaHQgYXhp iSftymcrv0fwTzTkFDrxfVAb ymSmOgp2GLRxqoXtpg8rCGA5 YBSloXLhwx2xCFM2XG5sX09d tHJuyrUyLXZabNUfQGHxfw5n YZyymN7tEYljolQlEID4iAR4 GJRuclivv1NqhKL9XBThBICn nJGwOCElHEsrF6FltWe1XQyw cyAgLSBvciMyOlxwYXJccGFy VFpcnOwxOEevpW42UdYgXcJj JUM5HJM2JMBeVzOmEJCgqG2i gZHmFPiOH3SobUZkbQPgaRvk UbbsuVV1VRojBmbpiY7gzSXZ QQCIEphATmurduVjJB4AWC8L YsIPAJ76DcErPKP4VIkXJ1PP xRU0Vfl4PHl6mXvsFrwnsuJi yDCuWhNuxJ3ZAmqpJffxuAU6 JWajXmddqQ5kyOMNQKJBWqoK QgwdjyKrPO4YWM1ONJ4EsRQe UDM4zGM9WCNGRmdklUK5bBL5 hS97SICsROWpzMDyVUkkN117 XHBsYWluXGZzMjBccGFyXHBh qxEof5EsMHvftZczRAKdXyF5 SMNxcENzLQU2NC4nbWeuZVC0 HMiaFPVwS6GuF3WhENltCIL6 HXDtToSlWHOpDY6GIcJxLCWe Czk8EBMsTBo5EIs1HK3OEvJx SVIpKFDlQEE1NOIlNDe9HUdb EN8OPMLpMZB1GxC6OZAwARQw PNPbQHs3OSDfBOokyeWtUBgb NzjxNXqaC92reSJoZVuwCfIl XYegdCexIUTjHJT0ZHEyCykv oTCuODXfdiYbw5ZoXLimyYml YIHsDjHjqMipnY0gAdcuakZp YQKqUKGCBR08oG5nxSAuaN0m bVJzs7PgEUJslXudbHTnpCgd yuwzdYWhIHhamHdayigxb2ng BkTsSAHjw4FoYI3vDIQsgHDa BZSpqwHokw2yPHC7CKHyaWXn hf5uZUhpVNAtdxHiJxldLVQj fDTlMXsnyCuxCZhovO49HtAr l9HqSNmgeAwzCLQsDlSdFwAm C8SsRQ1dwFInnCL2jRXpC1Jf D1wwj36lSfEMDZ0OPOKau2Vh M4B6VXBoARqdu6xwLBAtQPcq p1NkLLrPAPEBWM7XZG2bkRG5 FCaNO9ARM8eBfJOwLML7pPU4 CVYPCqdlbQA1aGR9jP73IFBk TRAiuZShGIqwI330QBg5MBMw JDiup1mlHFPkVSdde8OtKHeA FXBJQI7HEM6lkJD8SHiMM6YK TKejIYQtWnjimGOCPQV0KViy lFcgbWd9w8zinLXut2w6AYwz RLM3lWrhqHTjznyycyAon6ap dJgbu0ZziZIgJL3sbBUdv4ie PLTpdYDzJDD0NRkkrVWiEAJp MDIgXFxkYiBPVlIgIiAxMTM4 MjE2JvZ6GBc8TLMCHwDrSyIc KILbPqAaIbQiQRj0DZr2IKcO MgQgJcStYidyKxX4JIJ9OIu1 OQoyyVIrZLvue7SpIwAzWQCd QRytacL4KZJxvnTzm4YuQIAw MMCcX1oeYoHwUCenTSH3NNLd tbvcZMJyEYYnWtZcLRFuX8hf YjMwXHBsYWluXGJcZnMyMCBT JU28qN4lpZMccV9coMDvz0Qx LCBheGlsbGFyeSwgcmlnaHQg PNcgaJckjpyyl8xfTdJmZSZj p9JnAB2xEGJcbFVzNAXkorDq ik1tKvPzQZT0jyi4ouRlNuBb LSBvciMyOlxwYXJccGFyZFxs eFyyFTrjuP16ZgIkZiVeIZEs PVRdzH6xlFNcaLKvRG82FkHZ NX9SNURup2KcI5M7YJAcJMqn u8ayLGYhFJlon5HdTCjZRKDA IT7SDP3xyCA3OSqWB9XDX6jA rVJyLXS1xJE1FXFORduzdMD7 jMV3bE70GIHpLFBvzUXgPGgk A595BFv4IQAaKGhsr0ufFLJd RNnty9PlPQdZPGBSLU0LJW7a dNA5XAtKU8SNDRshWEAeRugu dMSTWNW9UEpyxBuehHz1s7zj dYDjp5n2EKrdHLR4dFeqhPNy blxmczIwXHBhclxwYXJkXHNh RdHpKVSvB3efFZDha7phfBuf x5IbrSZmAY0fkAUek0pcXHZi wLKaQCS5XQqklUXmVRVpZOHa PIttFpXCZcDgXuNkCZD2JjW8 FiV3FIy7OSJTIkJbRrSkLUTz RvSqGuVmYLu8BGi7ZTxYUgAh OzFyInnrTOF8NUZ9CDh4WTyd nUSrQLcqv5RsTbVzTYVqJAfe xdV1FLYgguCoq5QoJEAdWQKm R1xdIfOxFBgzNFC0ADYrobmk XYJoRIBlLhDtGEQnK4jaIiBo VDCwACoiTWLcBuFbPZBVRE94 mA3tkABvwT2riJOeg3TnPZQw eGlsbGFyeSwgcmlnaHQgYXhp sHwuolzyt8egPzGfDQFjh5Om YL5pYXKmiWSnOQYddsGlby7y ToLzIMG8sww9jxZ3MBEiGN2d SlX4KBChbcmfZLQzAFxnKlOn XGxpbjcyMFxiMCBEZWZlciB0 zoGtLWDhEH8wdoOrVBmYB3UF WlxwYXJccGFyZFxzYTMwXGVw xEMHa8DeIJinOQIdS6KsJ9Bn wkU2ZKBlwlktEsjevQeqb5Jp dCBcXGlkIDUxMDAyIFxcZGIg C2DISSIyZIKdTDF3KSUvCGc3 EAcqM0VLGGDqQIE9BqQ5QJv6 ZuB7OLh4RMBIRf2oOGTgQZM3 TqQ4DEU0ERD5WnYpJYQbRgRm TFCrSTZwEBqeuGCnFV4jcVwg IZNqPECxURC7RUXasTJEx5Uu MDVcYiBFOlxwYXJccGFyZFxz CsNnMDOruBWSy8EoOIdsiLTx nkjhOSGxZlLdQkAaYKT1QSWz vRnkyAcrczxsiBHok5OsmXXu iEBfNF4vg7XqY2EarTs1IXht A4PioDlwcrQ1jADxQjJyZKVk QTVfl4U9HrApvQ7iwLHfcOq3 X6raj7ZgZCYtp9QeXFbmjgdb m2EabFUqHCfdfNRmRVdxFUyj cxCbPWFftkQug0O9AFOxd7T9 EQQiQGNfdO3kdeWwWQGdk5iy RKFfIbY0QMN1TYPjuakkUZXx XGxpNzIwXGxpbjcyMFxiMCAx YSXpgXFxIL0qIWNzC7TCFV7a V5AqS0HeJZIfZsGjcOZ2xWPl tDYem5TfKZg1PT2vTFFsZZJm UCQda9K5MBQqz2IqaUUlR3cc EnFSKP5OXCuntSHbLCPohqHi z8SgXOxmnPkhFZMbQyK6HYOs rZThSOR2DM2tuZazGFZoS6Gg L1MknxF2TYNdha6= [employer](s) n7szaMGyAAEpmVEyMTGfYbyv (test code = 9841) wmNjUEUpeSRlI4QqkiuvWBqj BY5bOT1jrBgniMEcxGLjFRBz NmEcu3bez649lZKcb9cePDNJ agkqpKw5qVurT39ym5S5Kkad J21kzQBlJAG9HHSsLMXveZUu FLPrWZY6ZCXkoZPcP2knETVk SO4kkvvmLQbdVQknZGQtbOA1 RXUunSTcP2HsPBXdSKtmKUZd zpk4GwWrXi1yxESurOinYQml YXJkXHBsYWluXGZzMjAgUHJp oWOzqOL4bO5qbiXpeO0urchp LQwfzEPuZZ1cxf2urUTGsG4a azogRTFccGFyfQ== Disclaimer (test code n6hnsBXrWAZbmLFiEtSuLVFf = 9878) JRFxs8mcOMXbnEFaBkDoDdJi ArKgWylffLOcKDXvFiVbm0cb w584eACch6tpYZLaOpD4qEDa STXcxPPcL380JPEnWOzal1dg v2XyVDQjwSEnl3W5UGUSotls gEp6eLqhX20qf4N9IdmlW2uc LWNpNWJlT9TnGF0pSDApPex0 CTT8XAR3LPKqRDJbR9YmRO2y WDIzcGEtJJp8v8hxiSkqYVVn XRQ6f8orBUpvzhSjCH1akp5q zNq6z3eskzYfOMYmPAWkaBHX TBClA4PifRwrHu3ovAa4oOrs XuqaUOS7Viz6MC7xyz73bhs7 wLcdPFWbwtvdNzC7DMtqUPWb bscnDSm8RJrqSRRgkDO8QKVk zULqS3CpBOFbTA8selv3VVR1 ZGiwMKLbLjR7KPZiqZHrYZMv sDugXSnyo420FQY5ChMiGP1f H5Yid3T2lL7tjQJwQDYagPCz SvNpFKRegu7rjFRgWCvrk2Zx PNE4riQ2gWSczOPfELJcIH03 Ufbuw3OmFaccSLX5FGPjqgCx i0Jjw2npIdQlkrKjZ8grF9Jf BPRcHRHjWGGpKoRcsuGsr9Qr z9EwiUUxqSs9q1wvCNXmDQYn yTnwe7znZDI1VTNaD0J8xMSf x0djSNooBEDnlFG4jwG5TQQv aUCzJ9ZgcI9wOLHuMX4albc9 g8rcFPF1KGeiEARmMeL1skF7 RFUxsRTdSBRiwYvfPVjjz495 DOR1FwJwUMDts4OpH0GioLjb D72fgWsvG42wAUWiiPcfeD4v wCmmwG0tOuCzKjMyBBfbuYvh yLUfltomFZmigkD3JHtjiish OBLfCLnrP2pzRkOiOKXcoInp HXqfs2IpIBVrHQPaAtalshT8 PICEr72uSXQea7WyVFPknK1o sPPgLUexcuSpdGH4NVhnnlAo EnVgvkInNQUnjW0dRCLbMN7s IKYahcXipm8skmXyVRHvHBLz I4BwpkynwGaqutOaGBFhkl1n vfXgLBS2XFVFQT4XNZPrCQTj v93oVXQmkFcwlU8vqDPrrgZl GTZjs1GiqK4dpGKYQHTrB3jg XI5pMTfqo3EgvKQyqFMrqEE0 QSBdc2DfFfJoqbKgmWOzuFIa K2VqmOktO8kyIDXrNJGzorEy zYWkb2NiEZHwiTG9xTDkER8S YaFRc37mTONaEOFYkzHjOCQl bJmakAT6vjR0vJ9oMtBKAxQg tFLyqDXjNppeWSAup175jz8l jsC6PZWzQCXdlonqj7DxIGGe ERPmlR82HZUvWMNtkz5gxkop fGPanxLgD6Rvtqd4aJ5cMKKd YWluXGYxXGZzMjJcbGFuZzEw MzNcaGljaFxmMVxkYmNoXGYx DNujQ1ytCtZhVrZoBbznDBI3 [facility] 2022-06-04 16:48:19 Test Item Value Reference Range Interpretation Comments Submitted Clinical v6lvfHFcYHUqh8tbVHBysMVs History (test code = ZzEwMzNcZnRuYmpcdWMxIHtc 46000) uwVhUBhvw7YuQ6WdAnYxZMkj bnNpXGRlZmxhbmcxMDMzXGZ0 rvBgHVEvUBinUCJjNPpmTg9h aGQeaMwiUwAyGBPiz1ciobRX mmjtwWh5r1auCLQjVmV1uQHw URgmX7qlcwMuaBVcEDAxBBa0 lG09RTSmzV4caMDrKPiippMf JgK8CFdbXKTyVhP4FJMbjCFd DKSrH5frGFYkGUlgMPIgKHcd aCKqYTR3vJqpo2N2sLByuESq gQysXvPiEbJhMyUFh4CcTOe7 bRlzF3YtDTYgNhT7kOTdWLKk DSazNESgANUwjwN7zN77CPaq ziI9cSTwr3Hay70va421tY0v pASsSIP4SKWaCMDrcBFxZWLw GPH7HSTgiOJtO1gwWDLfDP6s sfclFEaiAWlaHWTceEK3IVEu yQIxD9TiMHOqQKqoJHDeayn6 XjXmEz6iwESetNtkLExcx1bf a1essRTcZax6LIOjEnUkVzvv UWaxd1Cxo0xeFOSert0cPST1 gFLfcFbuk9B2mOAtTIYfzNGl soJxWNFsEqE4EVpaNQ8ivt41 STRlZGY4zo7bzHQmtSuwzjHs oVWfYDaoR2RvNWJxx541PPBa O4RkUKUtz3S2mmJmYhJfLWOm pMA4byC7WALeETy8oIDvwlS9 doWwnTEzP4rloI3eBXCbRU6y dtjjx7xaKVgjHDdrOVJgbMN2 rcD9QUTvqFKpR0JzdP6xXNOr UNunAKQfcjn7QxWmHb4kcDZm eTcyMFxzYmtwYWdlXHBnbmNv bnRccGduZGVjXHBsYWluXHBs YWluXGYwXGZzMjRccWxccGxh zU3fLpFoBeUgFVgiUQ1cANAv W1gobJAgFLGgSOJeJ9xiJiVi bS1lhMrpDEugwzKeVYnoOlsf pQMzgTytNlZdePK0OMWhnhVj dq1yJEUvVqNbhDdmdGLhDA1o vTFvAdOrBOW3NQbVIVNdYPUw XVxwbGFpblxmMVxmczIyXGxh dugjIRAsNKkfZ7zaQzRmSXHv xZadYEwqe9BvSLPzXPOnSeBo cGFyfX0= Diagnosis (test code g7oyhJXpVWZfzNDpDMXaDiph = 34) evQfBIZqdFGnJ4XxsoczXRzg VO6gUR9goDxzrQKmmOYsIDTl CjHtk4xdb669vACnt0yrTPOO ivbisNw8wDbqC13ga0B2Mqpt B7axEOTeYQoiVGZfNUzlfKLv RNd1HGOaiVDwiwQqDeYkDOTu uRLjpZT4CRWtRA9azptsETkv EFlyLGPyvlT7YWJchKRvS8Xl EQBiIB9cfixwXRX1VNthULNb OKT3FbPoLACoz0Dhreg1HqLu cGFyZFxwbGFpblxmczIwXGNm MSBBOiBSaWdodCBheGlsbGFy oXZdNC35rD7tdYExoQ2gkULz z8PrBLTrZmdlTMOtxFn7ZnQo wTyeGoAdZGOtQGRMHRVLF1RJ TLyEBKUFNeVGQc7GGBUIUbBY LxZlX6BsULgCVHnREAGLKX9T HAFHPeqvSPEyPWOZR9LCSKLU SQ4CVlEDBBFEV2qDRJYFPlR6 JII8VD1GCvbfXVEsPCzLDrSS BRYRSGwXNbVCLRCTOeCIS751 OP2nnDLtFKZxbJbtfKThZsnt YXJcbGkwXGxpbjBccGFyXGNm MSBCOiBSaWdodCBheGlsbGFy yYQnKA36wP7tjAWovD2vrOJm k0MwHVCmRujmHQWklOs4UpBz oFexAbKvVXNdCNUHFRQCY4BR KUaVTQNYHxLGTw5OGJTFBhRW QpRvBOfIUTulMp0VRG3bgZDv RRMFDWOYL8RUD3XVBDQqJEdX SP8DJH9XXvKGy8FoqTBnyjHw DrqbMU7prPHqRPxhOFzeiW3c XHBhclxjZjEgQzogUmlnaHQg EAgcqItfmdvap1UkrBwxSAcz oJzneFncvm4rSCOrMeasfOJz XGxpNzIwXGxpbjcyMFxjZjAg C01iZQl7lCHsSL3bGRCtVI2u ETR7sX4iMNVxVDItipAyMHXl zodenIHauWehLGtuQAMdE6Vr ECN3UKAeA8h2LUZ5dLiwWYV0 RVQbotTopfJyOBh3iUKaHA8h WPAlHtK2HGBzlszeqGxzZEqa gW27HeBeA6SpEDK0qiMdlN3r oYSfo7Oagvrjja2doGSta8Yb dMRuz6LyxU8mcEZxUVdtZSyc aU4vELVbghzyLsQcIWkcOaxa bYTdv4OzdQWvePVeMR4lo3Me X5OrmDa0FYRjgsudPWTtFYaz IhNcPClloykdXNi0zESaeAtl NPIyvEf9IdGsqNlnGQPwJJS3 GrX5ZBe5ySA2LYMpvFhoRvKw TXA4NRNbGIl7rFXoZCZilFp7 CdKkZHS5XfW7XDa0uAsqYMCx lMu1VJYeDKW7SVT2DYk8vZij QnTmdHnzZYP7MIHJKLLOYXWL UPWRGhNWO2qYQHWKFLFGSV0Z ESSpA5eFJKYGMoFQZQ1KLtWd RUZGRUNULiAgXHBhclxwYXJk HBnxJCK1PTcvdD66QvVuvGie NKV4XNy5xHOhgLikWAHkaAfi OSCsVPQ4WoU4VMv2vHR3DMDj pIqcWuWxJXX8YTClBRh3cHSm VKQnfJb0NmSbETF9HrS5LRw9 mAxzHWRnyKl8WJKtOCT6IGO6 EUu4sAjhSwQgvKhbARO8QCm1 eDEwODAwIEludmFzaXZlIGNh rqEigj1kIFBbqkIltYRjfzJn URK1eI0mCFJeQCYyZcByaBXu r2ngySW8JQn5WWNeYKH3SJOu H40iCETffUOmsKPhdxldVXSl zt63mC4teIZggCEbRYRfBtN0 zX0ncbOsIGexqSssddz7kSFh uWViizEaJlItZYIyloJRb9Po hTHlv3YmW5uazXUzHDG2A8Wy oHPpRTEnkU1scBOhyL3tr2i7 dSAoRENJUykuXHBhclxsaTcy NYucgCLnzQzzCaIhXH2lIONh ZmluaXRpdmUgbHltcGhvdmFz R3KkXMFjuQ48OJImu31qqPTq sULhyiGkLdugEW7mZTKdwefx vPW2NCJtKihlSrWlXXaviyV1 PRDhHH03BIJjjsMdW8QjC3ss e90uBFbvQSspi8ZroWptieYj VT5mYOUbs23pqHhzLQHhq3Jt ywndbjLvEYYyqF55CSJCRMEf qDSfEH68BM6oIBXjm87dwGym ONEpd7AcqzrkenHpNSJiqV7e EXHoxJObHL13pIXzHF5laczy avUptK1fETU5kNBrBOLhT08d GmUitMOqYGRsiF0sdJOrGUXe pjLQkLGtnKEsZK4mCMEjlL4k UR3qIPY0yA9dCGQmOPUvnkTf XHBhclxwYXJkXGNmMFxwYXJc K7TqUPD2EXToN1j3ULUuZESn rMGtIUWhfVlvyfYaYMKjo8Ts aucdhwJrDNShdH24IMNpjunw RTXhHRxsEIK9RNarlC37BkSm hNbuIIT3KYl6rFMqfEikRFXq kMfmYRHhWZU2UhQ4MZg9jXS2 QAEwuRzrExRiLLG5NOHnIXw6 qYTcFOLrwAb4FtRsDMC5BiR3 UPr5uKxsXKTuoEk8JYBjJRE9 AJV4HMt7sOcoDnLlwXomXGC4 QJh4gDLaQSReHDBeXQA5HMRr BUOijRMel1Jey7XbKrGab1Rh IK7iVDTnm5opfDUvVXnbuxVq zITmGNLkosXlgv3sVNdsiOBe u8BpoW7mTWFsjU9ryG7wL0Mg KJOil0CgAYqsNT3xaD3uNqly WBMjF1JtN1jid90cKNwtCO2d tiLtaApnoyP9SR9gOQAqu81x uQhmCU2xfpVyGTKgjB9sCIWl gbocJXStTPGlTPieLFQmE6Il BMp7OGfeAmBpB5sti0Zun6Bs bXKdm8N1KTJwX0C2sSbeyPVy ILylJaAwDAjnrztcTOk7kIFs dGxwYXIgTWVkaWNhbCBkZXZp V4FsQGjpl7AgUAQwy8GjpJM5 lT1jVY2adKzsRLMegmztIRNq XNPuGDzpVFChZ9QyIZu8JTTd M3o2DJF2mXqfLIY0GGXbdnGl bnRzIGxldmVscyAxICYgMjpc cGFyXGxpNzIwXGxpbjcyMFxj KqWdZHegqYEbLZz0zOTpKO3x JEYfOEOxhjN6aB9pnkGpshFb NH35BshjDEWzrTurSVwxplRh cGFyXGNmMSBJOiBSaWdodCBi ffRep1Qcz7dtiszefWBsUYkv FvXfVEiflmpnHBvwZcHfV0nn koldt3LvL3V8PH0gj8ArEGTr SkAlAUZnlJ8vXSQ1tQOvqCXr XD6iDPPcF0AuQLUyCKLxoWHf xOq8mJAitNCjNMWicxJ2eM6o rwQtlnJkMD09UofnPCHisJQq ZFxwYXJ9 Comment (test code = [id number] 9835) usBhMXDkfAMtM3ZjpgyfGScc CS3yQT1kiTbszHGeoJHgHNMt YrGhb1off956aLRrw8ymOWQD rejigTw1vRbwT43jz1B3Dlnu E21boGMzDIV3TBQiHNUwcWLu WWVbJUE2TLPhjNYnT4zuTPHn CU6cllrcCFriXBcdFZQulGX8 JBKphZFgG6MrAFGrKXsoYCHs hur1UaAyQr1piZFmpHfuLEim HWVnMUO7NpZyFBP6ZKF8EOt1 vHQsTdCowUltAHihDFI9SwZk CAd1jVXaTeDafPz4QUElFVN8 USb5CHf6dQX1ZDAgmEc6VrAb CLT1CadnLCo9wLu0QFTwdSh0 BtWxZSS8VOErEUCywXjhhW5w YiEfRGMHF8AfQD0loWRnOdOo aWFibGVzXHBhclxwYXJkXGxp BoRaCTXbKWvkrP03CbPgVPrt MH4vrS9ktcCkDrSVFGOtGTRx vHLIlrndMDW2QNU2mB4nURGg ZDC8OIC0DAicYuSkvQ9ydDFc RTNcraNpmhYiZ5KpN6UpIOKb hDs3cFXxuVG5XV4uMEQvi9ps pBYsISJ5pA3cZPSxKRQ2RJXu CNLioT96HMVyilNbM7LiL7ev k77jZTdxSEAbOICoR5IutUPd FrIQWLDfEXWbpDOZQV3yMNNz fZnpjEJxdnUwqz7aoQW5HwLK MOffIATbJU68ADggDkJzYvTc LJ3cJTl0jMWuHX1kSEVyEMnn hOzeFaVqnQI0KEhjSUI3LGN7 VPAbDlXTQZZjfK2uvPW1LNKr nLYsWZYeibMrn7ShNUHmH5Yw qHZZOHCrn5Kie0ahBkL8BW6h XHBhclxwYXJ9 Synoptic Checklist INVASIVE CARCINOMA OF (test code = 9864) THE BREAST: ResectionINVASIVE CARCINOMA OF THE BREAST: COMPLETE EXCISION - All Xfcpsktyq4nt Edition - Protocol posted: 09/13/2021 SPECIMEN Procedure: Excision (less than total mastectomy) Specimen Laterality: Right TUMOR Histologic Type: Invasive carcinoma of no special type (ductal) Histologic Grade (Aung Histologic Score): Glandular (Acinar) / Tubular Differentiation: Score cannot be determined Nuclear Pleomorphism: Score cannot be determined Mitotic Rate: Score cannot be determined Overall Grade: Score cannot be determined: Post treatment Tumor Size: Greatest dimension of largest invasive focus (Millimeters): 25 mm Ductal Carcinoma In Situ (DCIS): Present Lymphovascular Invasion: Not identified Treatment Effect in the Breast: Probable or definite response to presurgical therapy in the invasive carcinoma Treatment Effect in the Lymph Nodes: Probable or definite response to presurgical therapy in metastatic carcinoma MARGINS Margin Status for Invasive Carcinoma: All margins negative for invasive carcinoma Distance from Invasive Carcinoma to Closest Margin: Greater than: 5 mm Margin Status for DCIS: All margins negative for DCIS Distance from DCIS to Closest Margin: Greater than: 5 mm REGIONAL LYMPH NODES Regional Lymph Node Status: : Tumor present in regional lymph node(s) Number of Lymph Nodes with Macrometastases: 2 Number of Lymph Nodes with Micrometastases: 0 Number of Lymph Nodes with Isolated Tumor Cells: 0 Size of Largest Eddy Metastatic Deposit: 7 mm Extranodal Extension: Not identified Total Number of Lymph Nodes Examined (sentinel and non-sentinel): 18 Number of [place] Nodes Examined: 6 PATHOLOGIC STAGE CLASSIFICATION (pTNM, AJCC 8th Edition) Reporting of pT, pN, and (when applicable) pM categories is based on information available to the pathologist at the time the report is issued. As per the AJCC (Chapter 1, 8th Ed.) it is the managing physician s responsibility to establish the final pathologic stage based upon all pertinent information, including but potentially not limited to this pathology report. TNM Descriptors: y (post-treatment) pT Category: pT2 pN Category: pN1a Gross Description i6hecWQfYECngDAgVBHkPrep (test code = qfIwRBYbfLMaD9UmtuxuEUxe [id number]) RO5cZH6rmLvdxCOwwXYpCJZj GeNgu7cxf587bTJhv9kdTDRR guwcuJr0mMsnS74vi3J4Imql K0dwWESpSChrYABbVAgjtBAw MVz5CAKduMOvivMlJaSgNWMl lDNpoRS1VKAaAP9glmyvPHwr FLwoVQHppkW0WDQwiMCfM6Mx BQCwGI4gcstfSBP0FDrmQPNm NKT5RgPvZEZxr0Cfcnk0LoB2 IPviQZBwY6PhK5CdABpgOML3 XZNjRYInOZRgMX9COkHsGMCg Htr6CHIqQZJQCNQlCsF7HRo7 PHNEATMsBJRzYSi6CFI4IvZb TFJSIDEyMzAwMDAwMjEgXFxu aCBcXHQgMSBcXGZsIFxcbmN9 l5moFJZuyOMwQEC2TFytoSHw NTEwMDIgXFxkYiBPVlIgIiAx LKR7SkG2EqC1MUr8DGVJIyRv PkGaUOWbCxBjPQQvIYe2AIj0 TFdVFxNnXeMkWYM2KiOdULG3 CEc7QApknGHgLQubt3XrZxIa DTDvCRbkbdH4RBIwheWqcEla fX5bMcqmhiJkMUQ5ZXQhdhon MPDsWGLtUuRmRITpZ4lfPvLh XHBsYWluXGJcZnMyMFxjZjEg O9OohSczDNnbuLceiDtnnd8p QDvmALtpfPgchqxbYVItZ7w4 PNJ0lZftUPY2DYWmzkTdUONt x7XwSI1yUMCbcJFjjM48uVSd BRWhYXkyLDr6lJIqHZJtPkLv QOKmrsTxcX9nHNLswKeycJKe VZ7fXLN0HUrnL4TfzEjieqL4 zCLzLeMaVIChWSNsd6U4RqFv aILleE2azmQfEFIkm3znUGLk UpT9ANYcPK8oi4UyNqygFcPk KmydRNFmRQV7BdPjgKFzLpEv mVGwEpNwE93aUOclixTzFECr CK6zJMPwGgTgMRBocH0lYHO1 aXNzdWUuICBPbmUgYmlvcHN5 TUDuhXNjNS4mBC4rIXFBZCEP DLMfj0J1JOhmLOgsZB03aJCc PHWay32khoAvfH9repQggYsp YWUlD7V7zqPvZP7iHUlrg8Zd qZngMGVPoQYaUEO5zM3iIBSp ckGgoWRhXpEaq0GslCVgMHAx iP0bmCTbv1OiqzNkVd50HVyf IN83UHmrWP5gHKKyTJQyBVCc DiAeiFPsKhVanNCbAsChT65k XoRsV1SndIphjudoPnRxMbF4 yXAiTi56UTAvIHJwf8MvSody OTf7cBMnUO0dRSCmkoC2UQRb myW8kUVyX0Y9uXDgL538aZJz qdQfJvxgvMR4DWGquXKiHVIU fUVapK4xl6luoKHbeBcxcNwu ey7eQDApfqVeu9YdcPFdkFhi y1XefCxuxsXnZLKoqJIaoJH2 DCAaVU62rIEkqErwDf4oCFNo t3jpgnZdcJElai4liKZsDPKm ARXoAOE1Pn7uoYNqFYQkl1Wt kNLjyHQaDI15AYAvb2Grh0Ga umuwATUxXo5oiP21ykdxiRZa XHBhcmRccGFyXHNhMzBcZXBp R8lkVQZdJSJxQiHLGRVNFL9Z HTMEEBK3PTRuFVAtIZS3lBMi L0matSMoETLcd7RzpKBnKVCg qG9wzCJvs8ZlZGEzaa97YX2w hyAwynSgsZPiYHB8Jv9wnLCw ZLxyFSYfSM0wNCIbx7DerVKu AYJjyW7nuUHic3DnQTHsgc43 WM1hchQxhbHltFKjWCU6Cs4o mHRtUZ5oVOequv85DKI7s0yb xTUyMKqpFncriDFoddN1UZtA DXMBOVbUXcCpYK5fWNsHRttU RUdJTnwyMTAxNnwxfFVTRVJ8 LQtvbFyosGf6d6hudBVjw8s6 ONtmNZT3kErYi4kqeSUiLSzn LthecGXbxfB9MEjVJZLSMVbR PjRxNO5tGWoFGqiJZwN2OxBa ACQ5PNrAZ9IEnCB1Zqm7KTm5 iNbcXjiohiXoeMCqVaLvtM2g dKjofL0sNgOiDIbjBDPdV2Fo Z4LiwaG1IWOfizfzLmtkhArg u7RvjIFzWLijEPXeMWSnKKkf IFSbD5GQPJMcNGKjEKE3BRYy RMe0YRkcG1CXGFTxBKH9TlG1 FWR0HrD8WYf6ILAKQh8wQSDk WSR0HAY1JMI3JPT6CjVoRSPe AqZnMTTpBVNdVTisuOAkLL1x iGnkBNAkGLVzLZP1KWPduOXZ g1WuITLnFaDEAfbcTTQdxTMv DZpfLlItMQVmpJWZd8DxCRel dVGuqfifJZIvOkZkX8UhAGSb rfTemxFeCLp2qOEhHH1dZTMq MAE4hDbvJHU6QIPjqYyylQMg cLfwkNQnyTNkvV0nVuBoZSyq eJRttmDcNlv5KFMvSIsbrde9 taEqPmWaGIR7efn5moI4OUKm EI7hDxSsP2IdFMxuPdGtRBXm Y9OpdvElKCEjIIUiWBNcupVx rm87YH8mg2DzkOoupxBjtdPz CVHrgmgeDEJranNfM6TuBVWf xH0dspkozsMjSOJjb0M1hA0p SN6lXGlnxPqxag9bPPRwfR7s iTzpcLGtPWCeAkRjCoF4mZmy cAdnj6SjVZhyRbCkiIDoBjSr oLYrGbEuT46rWYEebxqutYz1 DMFpR1Kyy10iZEC6moEkKOUo UKvcYRYmdW9yhTCxbF5tp7it tWYdpMgntBjgxr4kEGXoGH45 DTNsYJziWJC2GDL8MKQkdAOj e2vyqntpEICDcnFzxU9dj4yw cLTcxMvgdWjfgn1xVRH5mtve IRF2GLGlOW0fATHbuKfmBZb8 JPO3Pf4baIYsDFMjpvWUYALi v2LmYhXopzJwYOSzZ6Pop40d CU4oYXJbtw4irfAymKVmsg1t SQLxwE3qDmwiNALazLQrLYrw TPSwz7PyKBhgiUkiXKTpVqIs zHDmdGRjqWazRgwudNF6TVej YzwloQ4nrDAOINJTTosTOfby rjFpTZ8TYN4OLmPIQJ11QxVc KRS3HmmTH2PMnMZ9Qbl8PPr8 vWdrEilzvoIbpCQdYrMwpW7Z KmsjRaomlCF0RGfcXhfqkI6c cZTTBWRNRkxTNyykrpSsLL0B TV1UIN5GvVQxFDK2fJL8OSAL XrkgfRH5xBZ7gQ10QVEsHKOy cAXiHGvqV445KPXyCLbkGNHj MrF1EANvrTYsIAM0PG7hyWyb ECM6OKvuJJEtF8XiH2VyTWmx IYK2CEYfIaPlHTNsQI5VUhBp IGFySsa0EQXrZKo5TDb4ZI8Q ImVdQYFvJKVaXTB2APYoDZk5 JKlzTL7FWYHbGGD4IZz3AuTa CBZzHJzgYZm2KKUsPFozipVo FNerUjcgXMxfM33ycQZjJSmy UdDsKKwxsYegRYWdOXD3CQUk QvfoyUDyQESbhuJwl7JkCPga yQqgYZOaUbAwmAmtnE5qNoxj svGcNKXhTZDLRW40lZ3djCYu dX6piSRox9GiCUUwbUnpxHPz eSwgcmlnaHQgYXhpbGxhcnkg q6suAuJlHPZbc5FkJM8jOUEx nQTbYMAmxiQpvl6jMqLwHFQ3 ucj7wwRiDuVfGRNjwmPsYUYu ITE5NSOjVACMPOYdHKP3BBLb VQW2KOHpXWKroZSjz1R9vP9l HU3bBQIrBsImKVMvfU3bNGM0 bOOprTDfYRSXiMGmPCF3xZ7c MKSwmrGqpNLrEHKaWjEdK71b qT9fP4XrUHTjq2DmXBjcPA0c eE7qZEAiq2PtVbxgYWt1bHNl EJ4qTWDjDMGFvCNenL9pl8iw jLDykArcnKwafd8rAYTexhDm NLWlHNxweMVvGOX8zV3oNZZp CL3fYUP9Gz1ciOQgBKEyiaXp gmRqhHVpyyQGXE8chNKaWXOn nbMyb1GoZFmjcLxoUWHkRmVo SBneBRBweyVet5UdDMjqebpy DEx1DLZHZISgdLJsfJVstXfd VwspxSY0FWslZqywoL9ijAMQ NZHTOyhSLiqqukLoKX6XKT7F OzSTHK65WuNrZGL4K7qKG0MO eXM6Aml0FIa3zCswYtdhuaEk iVRsSqFaeF8RL6ycGhyheRY4 EFkzIzzfjI8iqRUYZPKTRbmV IdycoiCySM6ZPP4ZHL2DxDHs SQP9rBI5WLLUTiiltRL3tCT0 eE85KRGoVNIzaAKyFKwmM556 CTOnKWhdJQChQiA2UXDheLWf RQO7DU6eyXwpZQT0HDlaXQGw E5DdU6CaCVnfMNY5TZRzGhKz PMOrAG7AWlGkFLQzPux5COCq ZDc4XCa0LP1CKcOqTGNaYJCm SMV3SgYkCVv4EGvlWX7RRFHj DEM3XZlpKCCuYAQoJJkmZKn0 IDIgXFxzcyAzIFxcZmwgXFxu R76xaXCgABzqKdPnZWwzbGth SMXmPUF4LJCmXMhveJPeDZEb niCno0ZpWYkfiHtkJMWpGaQn iYnmzB7bEmlrevDiVOJvWPWS OU01hX7uhJWxjQ7ngJPui3Hk LCBheGlsbGFyeSwgcmlnaHQg NSnjuCysbsetm8fsAiNlDZSb i0QhPV9hQFEcfTNtENSedkEy nj2mXrCkPLL5ybz1khL6IIBs BZ6fTnUyS8DtZOfmHcDpCERu aB6hc0tktEVxvWilvPzxiy9o TSYeRKRgKKZgsRSsauViMW59 YLVmZCkbEWpfWOJ6FSV8ITNc oPQnm4ornywbGHZOiDOshC0m j3hiyPDnqSmkmGgqrp0oGGGy AWSsLRYmacdnpKs0QSUcT8Fs h80pBVKhbnBes4UppUe5iSJd QVZkzXxpHTe5DGOhWMVpuEtx e7S2YUYshpmyMLHxKEDgztCS FQODMZ3XPHALAFP6WTPaGQJx LMYckgUqqX5hw5koyFBucVad bCpgpf4hHUNpMXRwPTQqq9Hn dHRlLiBccGFyXHNhMzBcZXBp G0yzSUZrCXYivMTieW6vOf1f vCWmcH40NJC6WHJsNM6lCVWt r0VuM4B3BLQtWKevr6xdNMEx RObpx4BpGXqLVKVSFM3ADL1t lEZ6CScUD2OWW9nBgIDbXLI8 hVR0IPYADucwkKD8bFD5kE01 XKQvLOLgvODtHQjjI732VVG4 QZAqOEsbz4zkFNEvYGisb8Fo XZzWNKBLSS0DFT6mmPL8UUxD G2WMTBbxXDBnLxk6mAZWMOM6 EYkmxFyysDu6x3ehqOWzi3m4 ZCayTFW8qFeomWMgrlfmtiJr b0afnLezj7YvdFOaUB2ftPFh g7dfORXbbKAyPJV0FGhffMQy NTEwMDIgXFxkYiBPVlIgIiAx LME2WnO0OmZ3HEp9XHDWIvIx EwJpAJTeJvXvSqxcWBx9OTy8 ZZoUNwZmJvJbVYQqDGJ1BMW1 CIy6AEufzHXoGIdwj9WwCgYr QHCkXVadysS6QRTvpvFgp1Tc LJSlTXSfS6gqJlSoENisTFV1 XHBhclxwYXJkXHNiMzBcZXBp E4waZzFuMTDeHEdaYUIhYaTj MTpeIwLnAzGyWPA7KTPpcQbv qSvcgeyvjCYiu0UvnGEnfMSq AT4gy7LlR0FpiWk6FXftL4Jz jEdbvdF1fLNrVdLzWVUvGMNu m4S9TfGhkG8crFEosAg8E6jn p7ZpBUJrs6HcVJcrlzkhm6Sz dGNoIGxhdGVyYWwsIGluayBt WRHckxMpc2Y3NRAot0W5RZQu UMFyyJ9xynHaZIUmv9fbPANu JoB9QRWgA2SsKHunMxIzLZIu S3ZgdWInmYFxNCgyWC10VPrx qYZvhKVtpA8wdXRoDWEfVOS3 JQMoLuAmiBD0NdLzP79kJCQa MIAfJeArCxvdy1m4rCHxYDXb OBZzmnMqe4vbXKp6SyCzoWI0 PlOvR36fGBDmcyVjnQufMB8g qYFuCCMeKQ1xWQzrJG4pOHma UQ99ABTzCJ4kFZQuANLwzRYm rF8rzlVvrhZptznpgsAaJJM1 wKHqSJXqr6R0FHL7mLMqqMHx rISgqVEtmwtaxlahrJ7bNpVo aZh0A4zrNVFaiAE8NPLggTmj BI9nGAqwpmItroWmd3N6VUVc h5SjYFHLgGPox9BnK9hwHR9q yWNhp3EwgDUepVtaz5awE9Ii BEAkk68cnST7LYKeoRN4kjNf NCMcIIwniD49tiI9LZQhpJLc cy6cUBSnEIfegM1xZYKzmwCi ZW7hl7Yja3o9pKAlsLSnx0Tf udRoHuV7ANIcRxF7LLYvMGYx bSkgaXMgaWRlbnRpZmllZCBh dCAxIGNtIGJlbmVhdGggdGhl HQ6qvZLuBVMtxrFueHeuPQQu CAOnksPez9bkN1NpEhAaKZQU lVDjiACgldPoqm4xh3s6JOQ5 vYHrZXZ8mmXxz2E5PNJpw0Eo aLQcV7zdRYOaudOatFRqBzEa hBPfbc8kTMNwFRMfuCPqzecs nvUpRCEqqC3vQEQaUqTbdZPp ia9dDKgoQpFzcB9eWL7hvaor re6pJFgtEBQzyUVfpkEoqvGp Pm4oGQymopI3AQH4CV4seiV6 rJ7mTEBgeiHxpJdkSHJvYGgh pK1xoTI4TCN0PEf5CGHur00j ACDESWZsv5TusJSirZmqQMHk RFWrIMBokipbRAMgBOdlRA49 dZPmPHLnaR3grRgnHLXxVXAl bWVuLiAgVGhlIHNwZWNpbWVu IGlzIHNhbXBsZWQgcGVyIHJh ONrnG5MlrEsjPWPbjqmoDEWt BBFtFsKMAevuI10AUCjuGQ42 ZCQzn8ZvvQDplG71NWMrs4N0 QLOqw5AwGnqoM4qmTGT2iZKk bM3jYQSueZIgSUnsTiAouQ2b LWluaywgbWVkaWFsIGFuZCBs YXRlcmFsLXJlZFxwYXJcdGFi WCKYB0CIK46uB50NHCicUORp iBapLBXoFJVqdMIxvHL4YZTy LCBsYXRlcmFsIHBlcnBlbmRp R3TvIXGacYKkW9tgMxPHFMrm BAJbWJQcyhVwtZksq8PaEPzb AWEpnWYqGQAzVaCTNImxA7ii U9rgMCXuzmZwTJdcPCHanOHi CRNbMpGYPB7QEKEwGW5in8Ui LUTxo7RvBHIsKJD1bVUcWXSr Z0U0lGAiifSdeKGkaamdoYFt H0boMHdoSEQwfOZxAAN5ZlOX NWUcNN6aWRTiQanmmULjykTe s1AaN6dgzEYkUVjnfWmnQWZm eB3kq1ylK7pudJSizsNnuBzl VXJxEEpyFSKsQGEaUIdmA2Fj pTM1hKDsmVEyjB0zb9jmF2Rt TqQ3KLLzWKzkaRMxuSMxKVHg adWngzJcC9DhYUEvbJJcB4ww KxknGPZfxEDhBEBadYUxdC1v Iv0jyMGefT40HRK7HlWrWD0n lDQrMGIpQdUdRLPgH6tlRBVq EINft9TkU2E0WDNhUIdiu4wb HKNdNItnd0BaYUdAPFTAWQ5O NW0uyYM5MNdFN9TIY9uRfXOe QFS7lDD8MMLEZtxlqMR3xLD8 mQ04DTXyWEEirYPuURprT584 BTt6YVWdRTipg3tdKZRtJKbo h9UkKSlPBTZZSC6SBF7yhUD6 JSwZP1UUVOilWAKvEvs4jTOJ FBE2CYbcdTthwCm5s6ucoGNg s5w0OEgnPOT9dPiswJXlhgas seUjr6miqWolc1XfqCWgCU0i yOEyk3jjTZArlGYnIOY0BZta aWQgNTEwMDIgXFxkYiBPVlIg WsKpLDZ2UwA4XxL7CWs2ZQUS VlMgIiAgIDUyMzQxOTkiIDk5 TVv7XZyZNwOwYgAgUTJ4Kucs ZEO7YBk3UNzeiCGoSJiqf3Yo BbGmHPMwOPgrajM5JIDxghFn z9TmLHBeZKPnF2jeNdSzQHij GWE2CVXqcljiTTFlQZDiKbJr LLZgS9hwViBzOABtAHjnHUCn OtQhGJgmBmSrYrPbMLW9EBKh wOouqAxtEUFwtBLdp02enLXw EKFjiM4rRYPsH7w8JBFjNUOc eCAqMWNosFandqUsHWTuw2Ne zzbvyoYaGHIbhG8fXAAxvLmf YS7zgcwpZSCqyNKitMYbX9un HM3rc3MlTcybLiEyDndqMYMs ROU9VjFlzGI8LnAdwMHfDsQg V42dyB4dgUfhflFqWnOrtCIy z6UjnYVni5AerJdjw0FwILVp AEYdaOXxp6WrFY52FULwEhpn pGujYZL2vigum12sz1h5pOGk rYhrpdYydlT5cKGhyHR2BDIr OXLijZ0rQNYFqICmeNE8GRUy WNQljZ7leNLqyI6bQJYgMrh4 ZSBhbmQgdGhlIHNwZWNpbWVu IWfpGLHqN6Jyf16mVR2cYRV2 dAJbaOCuUEMthcBpotVdF44c eD3jCQTkc1BzkNXsJK2dlD2i osOegFO0DZomu3kzcI6omSuj mETuQPZgxAPeq0NrzBsqr1Ux OQyrtAqjAORjTMXht3SmVDFx p3The1mboVKaDzszyb58wnW1 oULyyXXqGGIeeZOke4EptCZ6 jFYjNZEeI9Tvg72gRJUlGBIl lZKoxDN9GZPekE6kR8Mhk5Y3 hGMjKLGgMTOaCK6sdINxGAQg wpJeoXRwAPZzUvFlLQYiG2za MJKaYRZpuFActV0hNv2ogGVo iT4ouMAxArK7ZZMhc38fRCFt EH7aSVZvEzCsaSAaeRFabIug TttplFD4ZBpvNqttwT9guOFH KUSYSriNUddcdwIkBM2CFM6W RcXGHV13HiZzULP4QjsCO3DD lEE6Nsr1XGs7uXplCliozqPi dQOnEdZogX4AEjveYrnmhBO8 YZamAkkkoI3vqBTADNWAMtwB RzmgzwQmTK7IOC4LGO5TpYOz EIJ3iSW2ZBSGVurzcUC9tXB8 jF22DCUcTICcrNSbEWpbU536 GCGsTKdfUMYdVsH6WWIxsUTt BWL1MM2qxJwjHQC6YHlkIAVk K4GkD1QkVMxhJRV5AMBkYwMj GEUbSK3CNlLlWIWfPqw8VHDq HWf8KJw3WE4AWxJmLHFaWDMf VIDgLDYwJZi7GBnrWO8ESSBh DBD2WGJ4IWBqAYQbEHNsATb6 IDIgXFxzcyAzIFxcZmwgXFxu C38kjDOwJVynJrQzMOrreIjw MSHaTKY3VVMwBcdojXHoTFQb ruNrh0LoWJbvnHodHTToWwQj r4CtUKxxwOumQQVqLdBlbBbc pB0wThhwehUmMUHmGHZSgUNi uOP5LVufLERyMQC7CMGsDYS8 DWYuDUK2YCezzXnxhZ1mdDEq QJWpAR4ydGGhm35vyOWca2So CwfvZtUpUqchCLQsT41xd3ed zPNwx9WfIDV7weJra7t3L0Xi rMLEx7E1FCJbZ5J8lCSiOWDx yFSikgfnHm4bPClkOh1zSJzu YY08TCAeLCpufAcfLWO2HWAr FATsy4lfiCUiyUKcrB7jEUye KL8rJIXrMPxhASvnlqr8rHUh eSAwLjIgbSBpbiBkaWFtZXRl zotwSM8wJRZhP69qMbuxQD39 GJJtQyTqsFUbFARcRI5ecOEa IjGKyxDnq3G2TQJow9L5WHCf hwNwvQGrQ9hpQO6yAE8pO9Js CpTcFS0rDZ0zQYOuz0AzX5Pu wDG7BRKQUdAxVUW3TFErDDUH IrAJtDLvd9YkC5dmJA3tbJQz En0nCTpdt5XjWI8jkYaxJOwp kx33PWQ2x2rqjRQeZUbzKyly oVKfwlR1KKqFJLLWVToYGdYi JF4fRPySBkmCFWwQIvmqGFVs Sht7wDLUSIM0XVppwKybzQm7 z3bonDXkp5z2EZpaZYQ1kY0J o7dyiGOuKHxsHbvlfUPxuqE7 TUcCCADVZQvSHxLfMG7uUWzE RzuTIzX8SaTkGQE9R6iQC2DC lHI4Sfh8LXi1lAllQbknlmRo uVTkOeOrfO6zrZrdaW3gBtSs DMaaYDVfF8YbR4JyoiD1FRYk jaahBygccWiqg3KkhLXsHJxb BWNsISFnOFfdABLjM5KRNYDy RVWvYEN2UVYyCQm1PYaeV7BV IRAqUTI4WjX5TiG7MlJ2LOk8 QSLKXg7uQTLlUIk2UgvoAhJ5 AZU3NwBoMABaZbGsVJOiQLEl FPdovUZwRP7otNngJVOcRNXr WUA2XSTfdBJFu3NhNWNlThOT OlxwYXJccGFyZFxzYjMwXGVw qUQEl3FvTJqebETlwschFYXw YyGuI0AnHJL9iOpfAUV2RSPq bnRlbnRzLCByaWdodCwgcmln bIGpKTaggSqkbpmaT63scYFq vIVobLJ6VEdzCXKaDQIwVGHc oaIxVCZaDKQ8GNByLFLGQAyn RQR8YHJuPmM7LGPgXxUftWJq c6S5cC4uGU8fERSbKgQuZbQ8 eAgrkQzga0UvWqXRsUJvn3Cm K2yfIF6paNYohJRxjSH3JMHp PC0hYBVnd8BdT2VmSEA2tbVd GQ9tvcG1sbP4LGCpNlMrm5Oq lVArWZGmtY1emIYgc4MecqOs ZG8eiU1aNVTpa28fAR03MYBd OCBjbSBpbiBncmVhdGVzdCBk wH2pquKql55hBUJgphpoPCGf AWDomzFMSAUCWE4OJBECJZY7 RJqiPLW4kJEoSENon9AhpYWd AWYuiT6bsQIuh1OkunjbCYWz UARbwEZssD6to8einNLpxOup iNorss9lMGM2JKuqTRN3ePEm CSCbo2AipUMtONCfdG4bcEFs w2EhbbzjJWXlDM4ySGZci9Pk hZJaTTGuwP7umBYji1RaSIrq hQQtH3TqWJr1UCl6ROZpktVc gJ3lg2qtsQUrsEnvqKzivm6m XGCrfOFqx8AhjSFfOGvbVEUv HAzuQO2pJJGzg8RdlHQbPKCb wR6msULan9NeFTsaPFIcTRtt nSOyYMB8wX4bYCRzIwyaAFRa lZDyNSThYzKiQFBhV0ldRAUb IQMauIHndA5wOk3lgFJjwZ0z nXOzXuB1ITRbj64jFWUqSV1a MDIyLiBccHJvdGVjdHtcZmll wXQ2BQbjEksonV9ngRFCMNJZ XheQTnawdhAjSK4YBA8USvRN BX76RfIaHQX4VElRV8DCcGV6 Zzy7KBe1nGcvDhlpjqHgiICl GvQutM1JGalnTgdwqCW0SScf AooxsZ4qwNRMIGOYUtwLYnda hkNqKQ9NAB1BBK0GaQUrOPU1 iVh1CWWSWqlxsHJ8uTF1rC97 AXYbPIEjrXThOXhlC894HWFs HYfiRPCrDtX5EUXshXEwGFI8 VH2twQvfULG6DPnhSYQzD5Qh C1RhLBjmLYT5BNPaGdRkMBQa TV5ONeXsBBMkQpf7BKNzTEb0 PVm0DQ4RZbMrDHZyQIEjSOJu HLFySFj9GAfyRL4IYVDmTFV1 WZM9UZWcGPDjKYHyTNk0EORg EYvewsGgQTmwHcolMBzlZ52g cGFyZFxzYjEwNVxlcGljWHNi WRH8NYTvHWkmfCLlKZYjxfBj t9GhHFmrlTecSPRhKvEphHry eE7hYsvlhnJhKYPqPYSAhbVd k0KaEIRmZ2i8UWAxd8keRJUj ciIiEHBsQDS3ADMoATOCr94q oLW7mkXiXmB7q98jBwOlB56b eeNhXN6bVAOys4ykQYIesuK7 gcssh5pqDXPgv1muSKtqcKuy oM7tUYGcmGajHvKawURla0Tg mRD1WIMsl7L7HVEdV8dvMRfp pAfiXuZ0wgE1DfBfhWRfEqel jTQaBbTvO02hMAMxI3Zig89t zhhxdsZ4DTMmiwF4rzVsrWYr l4HnaXYqzWXrtE23HErgGlRi XFWgDZQgtYEaq4HeAiGlXAYc PB7gCIPfc8VbmzK0HBfam7ht zfXyzvJes5UaXX1lPVMfTTPq AIMmtlHbbLg6EJBmCPE7rB7h WFvyYAG8Vj8kvCWkXSJpxpYw SJNgYLF4ZQUmUWNjHWXpclut YXJkXHRhYlxwYXJccGFyXHNh YfMtPQBhP8jrNDDhSRTklRXs wL7kEk4muFIelZ0ngMQeXcB4 BTFhr22mFXQwEU1mSQIeHyQj fHQteZEbfIsiZvuziSE0WEua VbdaiE2ytJKTUOTOVihWUlcf mrBmVV1XJX2CGuXTEY19XaGf WDB8LXcVL8FSdOJ1Gmw3XDy7 fDmjUkslkbNysDPvBvRofP6N NzuzOaiqxHT3NYpzTzsnxM2p bQFDQDMECbgQScednaPbJB1D XF3QBS2MqOEpJKX7bBe8AEVN HlhggXU6iZR2yH05KZVcWTKg aAOmMEttL795FUTlMMxyCPJd LuX0OXYrhTAuZZJ4SQ3kmWng LUNoO2YbL6SxzpJ9QFMdbc0= Intraoperative b5maqXMhRIJgsKMrZNEiCjvq Evaluation (test code nyYbEVNcbGFgJ7TndddtHXdk = [id number]) QA7mLD4qdIijjUUelIMfPQDx QxGum7sjp621aBRab2oeRWTE kyaqvCc2jUfeF07ix6R0Qhst F3zqEIBhJLvoSSSpCHuujWTc TYl4RFGqeJDbvvOuKpUsZHSx kTHuwUV1VODzLY8dxemnZNmo GZhrGEUtbzT8IMAbfYXxA5Bx RIIsLW8pcnecEFL5DTqfRQZi JLT7IzLjDVUag8Bwvhg1ReM6 CIehCCAvB2MaR7RoMRtrDHW6 WDEzYUGkJJWcKD2GUzJmYJVl Rzc7ZADeXVWCFNAuKuO1GRb5 HLKVHGBiJVNmLAv7PUM5PtYr TFJSIDEyMzAwMDAwMjUgXFxu aCBcXHQgMSBcXGZsIFxcbmN9 i4esSGSzeCUaOPQ2XPdjjZEs NTEwMDIgXFxkYiBPVlIgIiAx UTA6RvZ7NlR5WIw1NIPNYdZo JvGvACQtZbCoBLPnWVm6MSx5 IEhOTyAxMjAwNjczNTIzIDU1 JVo6HHajyUGwQUesb2VzMdAk YYWfEOblffE2OMTlazXcrQlw nB3xBvzgdoAdJLU4JBTurmpv AHZrIOEtTbWfSIRdB4rkRcHb FJDsJBcySPLoPnRjHDRENH03 yC6bgFKslG4hxSGpf5VtQDWu eGlsbGFyeSwgcmlnaHQgYXhp uRtlerkfr6xkFlNmXBjfiPCa mzYvEid3CZZytoZpnw5pVAY3 QIUebSZdfy4cCSZ1XI0oA36a wSTiytVsSBKllIKmKCKmzj9m DZrosI5oPQolykUiKRO8rHQ0 DZNxjkeal1OadIM7UYIaYESk mLOwWDDcSGbcV4UegSx7PCjd cyAgLSBvciMyOlxwYXJccGFy ACnozHuxBQedcO55QyZrOgDm UIR8FSR6KAGcJfGwYKAqtO5y qRGaYIyWC9NfyUWxnPUenMyj PrkvlLF2QXjiScqrxD9juBGQ PLBMIjgGEvmwbjNaYD2DDA6F HlHKTH57AmJfHJP7HYcQS0PG zPI2Xnb2YKa1cMcdYfzkyoAu pDPvBiLtpH6TGjvsIhjwiMR4 SWcvNchfmG0jaCNWXPVSUgnM GljxexApMQ0OZZ3UJI3BiUWt GNQ8pVY5BGPDMkqqwJU6eWK2 kB63DLBmYCFzbBXlRYfmR526 XHBsYWluXGZzMjBccGFyXHBh ohWiq6YxHYefbRcfSKNrCpL8 PDEneHNvWDI7MC0nnBvmFCP4 CXjrCCItV3LcA2NaCCblIAZ4 HOTtQoNdASGnRV6IZuEnUGTh Ffl4RUXwBZy1CAb7CB1HJvAa EIZvSROeHEY2WNLiRIp7MJku ZN0SMZGrUZE6LkN5FPDkEXHh LDRjAXi1KLNxCKgegsScYIit GgsjCHggA93odSEdHQlhObFp QVmdwDfmMELzTQR7WIXsTyfa tOIsDPUykyTio2VxQZbxiLtv EACnLuHnaEpdqD3uDwttatZd NDWtBCIOTQ88eB5kcPUolA0c bCAtw1JmIYZqsBhqmRVhkWdf qqxekTOwCPfzeKiortzad1uj XgVhERZdl2EsDJ9dMPHaxOMm HXBxgeNech3iKRT8RPJzyAIn nh4aIVifQTDhaiVjMqpqPAMd mWBgGLmxyXxzCJtwnP00AcAy e8RqVLdcdZstKLFkUiZpFyQp H6ZhAC5pfSQyiOT4oSQsR6Qf X0grw25dPiAORL7FCGMoy2Fo W2E0NLVhYXain1baTWTyXCtv s3HyZWoVZGOBSL0ELE3thPD5 GEtAN2ISZ0cZbVGqXVM4pQS9 VCLKYpynyIR5xMW9xH68TDRt LBOvjLTqPWyuF776DPp5FDXu WNpmb8zaDZSvEAhnx6GnPRgY SJMNAO5ZOA3dbQK8ZYfAV7EC PTmiAGKuFpoxqHOTYUP7ZZbe vHvfhCo6v2neiLVmj4d3ANuw EIW5lCblrXFwasdjloRvm3ot hQuod6UvzBTmJU8vrXZmq3kx FIFriTPfDJW4OOvnxSQyHDKq MDIgXFxkYiBPVlIgIiAxMTM4 QoK8LvO5TFh3VTHOHxHlSkTs FOAsMbDrYwPiRXq0ZPa2SFmD DbLuTyNpIubdDgC7CLQ2QTx6 MEyiyZKvBBnqq2LmEkZrXVJu PVqwhoR1CMTolfSvx5AnPKRo CYAgA2ueXyBxBGekLLX1RZHb zytfZZEpKWWlGhEzLNBqD1le YjMwXHBsYWluXGJcZnMyMCBT YA98jR3srTRjvB4nkXEet0Fn LCBheGlsbGFyeSwgcmlnaHQg AWlweVhpvqggu8ukZrGgWXBt e3YbES8dWSRfvDDjGZGhovEi iv1bIiYxCTI5xct7isBnSwLi LSBvciMyOlxwYXJccGFyZFxs oLxiAJlvkO66HpZcBsXfNHPp ILPdaR6fzSSnoFEzDN77QqBX SW7MTLYfd6SaO9A3NLMlZWhc v3kgVIKdEDpvn4VlYZmCYYIA KH1SFS4cpEH5EMeDN5JOK0eE tWIrWTY2xLR1NQBCEozqzMM0 hTK9aC64BPCqWDWdwKKgRKom X422AGm0ELXyXLmyv5bjMLOc XIndr9WcOOmMBBXSEA7ODJ8c hMZ0QPzYI6BYLVmlTGOyKuvd iFEBSCD7ZAztmBamlAh2a7kv bSJoc6i3ANycHTN0wZdmtBKb blxmczIwXHBhclxwYXJkXHNh WpEiNUCmS8ycZQIka2gafDmw u1QmmDEdSL1rwHPcl0uvLSQf rHEsDAP3VUhtpAGhWJJlMWWp PAduGqYJJpYrRnYmTTV1GbV6 NkD6BEa0AHIFZgIxGrSnOZYf SxKwSxEvKLo1IZf4RDlHSbNs YmEfFdwwOJK7EJY2NAs3YCeq iUJiPOhha7ObQxPmSGMgQGfc vvI4XNPgxiGxn1ItRRLlJIAi R3vcVvLxCKiuVPM7EOXulpzz HDTnQBSyRjBtTLIcI4dgNlOy AAEnSLalQWWrWvNrCQAUKB74 jT7tjXGslD3bcHCwc1UhUAOo eGlsbGFyeSwgcmlnaHQgYXhp pHsjhvivw3seZyKoCGSfa3Ne YS3pYXVnpLMeLVUkkvZvki1y QhCfVKE8uzl0imA1MDJxAV0f BmP5XEPutdtqPKUzXFaeOsSc XGxpbjcyMFxiMCBEZWZlciB0 lkLuUBPyRZ0wrhGuPJkKJ2TU WlxwYXJccGFyZFxzYTMwXGVw aBVBd6ApMTbjSBYvV9SsC6Gl qkA2PBIisrivNorupOedz3Xd dCBcXGlkIDUxMDAyIFxcZGIg F7UGSTPxKPSiTHX8OOWcOBe1 OFnvY9ZAHLKmHKU4JwN3KSm5 SgZ4ROh8DZQMKf0lWQTnJLT1 McS1NWH4HXE4CiOfWYJcEqMw CSRiFWVoSKvlwIOjLB8mzQaj CAPoQUXlHRB4UFOwoQHOh4Ed MDVcYiBFOlxwYXJccGFyZFxz NbAcPGBpgFNDq6UtMTdohZTf ecduWVYcVdLhHlDkIED0MLNg fRsptEwjfopbpMZhj7MqbATx lNLtMP7jf0ApD8DzjFf2RHff S5ZaeGizcjG5fFPrFbGePJFa EWUsw9U3HuJiiI6juARpeUl9 Y0dej4CjAUUit2GtCBfmgupx t6EzjZXwDFtugWHxTPrrHCkh jaFeHECkuiHqx5N6NFHjl7Y4 TGEwSUSogM6yfhLoGUKku1uy OXUnCfV0ZDN5RVGqiecjPUFs XGxpNzIwXGxpbjcyMFxiMCAx LOAhkMXqDA6oQMKhU2ZGGI8s P8MrV7UrFXRhXzJhuUA1cIOi fRJlb4YcJMg0QQ1iCNBcCZIs SSVom8R9EBIlw9DdjAXrZ1lv LrXAJB8LKKynbTFhROMwkaLg x4WzBPnuqMslZOGkBaK3EHRk xGFcEWV4CL1cfBdsRIVcD8Pb Q8WoteQ5NLNpbn0= [employer](s) q6fsiDEkDZKzsMAzTYAhGrlt (test code = 9841) ywJpDYTuwPIrN2EnphcuTOox GL9pUY4kmOxfqULbpRCbYBFl VmVeo8exq250bMRyi5ueBOMA lqdeuXm1vYcbY63zr9G4Pxrb W59elUYbVQK3ETPeCIKjfSOg EDCbPQR0RYTrtNMeP0osEQLo TC3jlhscPVvgFYrhNPJioSG4 AWWrwCCmS0AwKNEzARhyGEWr nsy9HzZgLm9srQYfkNamNVpj YXJkXHBsYWluXGZzMjAgUHJp xZYtaYX4mB7xkpJtjO3dgmig BFhtcLKeUX3klg5pyVEBgR2l azogRTFccGFyfQ== Disclaimer (test code q4hiwAJtBHCgqIYrWeZfIHSl = 9844) ONZez6zmHXZdjSFbRrZqMcGh StScRsqddSBlCWAwCaJsw6qc e441sJQbg7gkXNUbTrR4vXHy ROMjjIYzV854LBBvLZqkh3qm m0ApGHMjbDMjd3L7IWVTkfow qYu0tVcfK45gh7V2FoiwV2if MIPlNXZgP9YmSV3cUXGjFgj4 GMB0TCA3FFRoLFCgY1NlSE6j EFWnhNCdMRw0t7nniSflTYNy SSM2n0ijCDmaryAdYF1grt7h sZp6e8tvmnFlHUZvOABmaUNU BEWtG9TwlUkfDf5wsDl5dDth RfbzVZL3Vdl8FI5rqe03wuz6 bSwxFMUcfnzoHpF9NCrePXEa ovnsQKr9VYffTSJcqMY2IIXs zBJhZ0BqOWOxGP3tjev8ZKC0 XJiwTQBlMsX3ARVriAToTYUi yIgtUTkav169ZRZ6GrIdLB6m U5Dft0Y5zO3koIKoSXSskQQr GeLsNPDjab8yiFSiCRtkj9Wj PRT5bbG7uDZrvQQeMRXxOH80 Pbnqn7CaEigrNBR9WJSzchIg v6Hgz1qxCoYjixCxW7wfT4Al OOJpELRqAYMpOgRkzrGms9Ek i1DghGNijKu2y0mlPBIfGXZs vJnma3nbQGV0NXFwB8Y9wUQk k4lhJImrDBKkzAZ1pqN5SCDk pPVlQ1GkfH5oZKRiUB6ukjc8 n0vdTQR6XTllGJPrYlH9qvA6 XHDcmJYcYCUyuBbkOMwfm262 KHX8RrJuSJIdw2EgH9NlkOqm R73xoOrmK71yYPDzcSopoW9q rWbnyN9kIpAwAkKeCUzdbTpz pONqlyvjLKpezoG5IAchssvm TJDdALqqX4jkBiSrIDEdoAoi ATxoi7CaIRNoWRPuRijbqpF7 YCLBi09sDOUzn9XiVDScaK8p bFOjWPnligLziOH4KNpmnbLu ChIeaiUsYSSnfH9uHULgJN5f MJNaddEzql8xpoYiQFJfAUTd Y6QqpnbnaKmwrcUuPHVbqs8y nuMyARH4EMJWWA9FGTCuURHg r48fTFYynGwugA1lfVDvhyXk QLPya7FesL4qbOBZOCWbK1ea GR0jCKadh4XpdUQekMQhrAP9 SDCto4HnPwCvgiYuvOJxvBQs W5HkcYdkB2smDIQpHLEsuaQs tQYkr3OrLOGomRT3yDOhUU3J VvONb61wPHYrRKFXarZzIAVu tKidcOY3gtP4wO2qCwSMUcPi fEWmlVXwPkzzWKCbo918bw8k emK3ZHCySGVnqwoeo3QvALXk ZZBxjM82PECyNPJpgh2nbhws gAFdeiKjO0Fuicd2oC2bRBPd YWluXGYxXGZzMjJcbGFuZzEw MzNcaGljaFxmMVxkYmNoXGYx UHtdR8pfAeDhRmPbBsafQAY7 [facility] AmericaCOVID-19 (SARS-CoV-2)[id number] 19:14:49 Test Item Value Reference Range Interpretation Comments COVID19 Not Detected Not Detected (SARS-CoV-2) (test code = 82766-8) COVID19 SARS Pre-OR Procedure Indication (test code = 54488) Covid 19 Comment See Note The george S ARS-CoV-2 (test code = [place] [address]) use on the nathan s Rosh[employer] System [...] sheet for patie nts provided by the contact lens blocker ([employer]) can be rev iewed at: https://www.MediCard .gov/m edia/474076/talib nload. A fact sheet fo Health Care pro viders is provided by the contact lens blocker ([employer]) and can be reviewed at: https://www.MediCard .gov/m edia/697961/talib nload Results must be interpreted wit hin [...] high-comple xity tests. The Microbiology Laboratory at [facility], CLIA Accreditation #[id number] and CAP Accreditation #[id number], verif ied the performance characteristics of this assay. Int ernal controls are us ed to monitor all sta ges of the test proces s. [facility] AmericaCOVID-19 (SARS-CoV-2)[id number] 19:14:49 Test Item Value Reference Range Interpretation Comments COVID19 Not Detected Not Detected (SARS-CoV-2) (test code = 22027-5) COVID19 SARS Pre-OR Procedure Indication (test code = 56099) Covid 19 Comment See Note The george S ARS-CoV-2 (test code = [place] [address]) use on the nathan s [employer]osh[employer] System [...] sheet for patie nts provided by the contact lens blocker ([employer]) can be rev iewed at: https://www.MediCard .gov/m edia/703404/talib nload. A fact sheet fo Health Care pro viders is provided by the contact lens blocker ([employer]) and can be reviewed at: https://www.fda .gov/m edia/944611/talib nload Results must be interpreted wit hin [...] high-comple xity tests. The Microbiology Laboratory at [facility], CLIA Accreditation #[id number] and CAP Accreditation #[id number], verif ied the performance characteristics of this assay. Int ernal controls are us ed to monitor all sta ges of the test proces s. [facility] AmericaUS Breast Complete - Right 2022-04-27 19:12:30 Test Item Value Reference Range Interpretation Comments Radiology Study observation (narrative) (test code = 81751-7) IMP (test code = IMP) Favorable interval response to therapy as detailed above. Recommend appropriate evaluation and treatment of this known malignancy. BI-RADS Category 6:Known Biopsy Proven Malignancy PXN (test code = PXN) Genesis Pichardo, DO - 04/27/2022 CLINICAL INDICATION:Patient is a 66 year old female and is seen for response FILMS COMPAREDThe present examination has been compared to prior imaging studies performed [facility] on 10/26/2021, 02/09/2022 and 04/27/2022. Images were [...] Malignancy Lab Interpretation Abnormal (test code = 79314-7) [facility] Chest for Breast Ultrasound (Add-on Only)2022-04-27 19:12:30 Test Item Value Reference Range Interpretation Comments Radiology Study observation (narrative) (test code = 76412-3) IMP (test code = IMP) Favorable interval response to therapy as detailed above. Recommend appropriate evaluation and treatment of this known malignancy. BI-RADS Category 6:Known Biopsy Proven Malignancy PXN (test code = PXN) Genesis Pichardo, DO - 04/27/2022 CLINICAL INDICATION:Patient is a 66 year old female and is seen for response FILMS COMPAREDThe present examination has been compared to prior imaging studies performed [facility] on 10/26/2021, 02/09/2022 and 04/27/2022. Images were [...] Malignancy Lab Interpretation Abnormal (test code = 87509-8) [facility] [place] Digital Diagnostic Right with [id number] 19:11:44 Test Item Value Reference Range Interpretation Comments Radiology Study observation (narrative) (test code = 72964-3) IMP (test code = IMP) 1. Findings [...] outside location on 06/05/2018, 08/07/2019, 08/23/2020 and 09/06/2021, and [facility] on 10/26/2021 and 02/09/2022. FINDINGS:The breast is almost entirely fatty. An irregular spiculated mass in the retroareolar right breast 0.4 cm from thenipple measures approximately 2.7 x 1.9 x 1.8cm (previously 3.6 x 3.2 x 2.7 cm10/26/2021). There are associated pleomorphic calcifications within the mass andan associated coil biopsy clip. [facility] pathology review reported as IDC. There isassociated nipple retraction. U shaped biopsy clip noted in the right axillawith associated node consistent with biopsy proven metastatic carcinoma. Tomosynthesis performed in CC and MLO projections. IMPRESSION:1. Findings consistent with interval response. Ultrasound is scheduled to follow. BI-RADS Category 5.Known breast malignancy. Lab Interpretation Abnormal (test code = 22766-5) [facility] AmericaEXTERNAL [id number] 14:07:00 Test Item Value Reference Range Interpretation Comments Radiology Study observation (narrative) (test code = 60872-7) JUDIT (test code = JUDIT) Please see results in Care Everywhere. Claus Sanders MD - 02/09/2022 CLINICAL INDICATION: Patient is a 66 year old female and is seen for breast cancer FILMS COMPARED The present examination has been compared to a prior imaging study performed at [facility] on 10/26/2021. Images were obtained in multiple scanning planes. Real-time sonographic imaging of the right breast (including all 4 quadrants and retroareolar region) was performed. ?Real-time sonographic imaging of the right regional eddy basins including ultrasound of the chest/mediastinum to evaluate the axillary (level I,II,III) and internal mammary regions was performed. The known malignancy is identified in the central?retroareolar region as an irregular, hypoechoic mass with in situ clip measuring 2.7 x 2.0 x 1.6 cm, previously 3.2 x 3 x 2.7 cm. ?There is persistent nipple retraction. ?There are no new suspicious sonographic findings in the right breast. The known metastatic axillary level 1 lymph node is also decreased in size measuring 2.3 x 1.7 x 0.7 cm with in situ clip and persistent focal cortical thickening. ?Previously, this measured 2.7 x 1.6 x 1.4 cm. ?A total of 2 abnormal level 1 lymph nodes are?identified. ?There is no additional axillary (level 2-3) or internal mammary lymphadenopathy. IMPRESSION: Partial interval response to therapy as detailed above. Recommend appropriate evaluation and treatment of this known malignancy. BI-RADS?Category 6: Known Biopsy Proven Malignancy Exam End: 02/09/22 09:54 Specimen Collected: 02/09/22 10:03 Last Resulted: 02/09/22 10:03 Received From: [facility] Result Received: 04/23/22 09:07 Lab Interpretation (test Abnormal code = 98402-7) [id number] 14:07:00 Test Item Value Reference Range Interpretation Comments Radiology Study observation (narrative) (test code = 99513-7) JUDIT (test code = JUDIT) Please see results in Care Everywhere. CLINICAL INDICATION: Patient is a 66 year old female and is seen for breast cancer MAMMO DIGITAL DIAGNOSTIC BILATERAL W HOWARD Digital Mammogram evaluated?with Computer Aided Detection (CAD). COMPARISON: The present examination has been compared to prior imaging studies performed at an outside location on 06/05/2018, 08/07/2019, 08/23/2020 and 09/06/2021. FINDINGS: The breasts are almost entirely?fatty. An irregular spiculated mass in the retroareolar right breast 0.4 cm from the nipple measures 3.6 x 3.2 x 2.7 cm. ?There are associated pleomorphic calcifications within the mass. ?An associated biopsy clip indicates site of biopsy-proven malignancy from outside facility ([facility] overread pending). There is overlying nipple retraction. In the left breast, no dominant mass, distortion, or suspicious calcifications are identified. Tomosynthesis performed in CC and MLO projections. IMPRESSION: Finding in the right breast requires additional imaging evaluation. Recommend further evaluation of this finding in the right breast, which is of concern. Known right breast cancer. An ultrasound is to follow for further evaluation. BI-RADS Category 0: Incomplete: Needs Additional Imaging Evaluation Exam End: 10/26/21 11:22 Specimen Collected: 10/26/21 13:50 Last Resulted: 10/26/21 13:50 Received From: [facility] Result Received: 04/23/22 09:07 Lab Interpretation Abnormal (test code = 47288-6) [facility] [id number] 15:03:01 Test Item Value Reference Range Interpretation Comments Radiology Study observation (narrative) (test code = 08763-8) IMP (test code = IMP) Partial interval [...] compared to a prior imaging study performed [facility] on 10/26/2021. Images were obtained in [...] Malignancy Lab Interpretation Abnormal (test code = 81186-4) [facility] [place] Chest for Breast Ultrasound (Add-on Only)2022-02-09 15:03:01 Test Item Value Reference Range Interpretation Comments Radiology Study observation (narrative) (test code = 94802-8) IMP (test code = IMP) Partial interval [...] compared to a prior imaging study performed [facility] on 10/26/2021. Images were obtained in [...] Malignancy Lab Interpretation Abnormal (test code = 63287-6) [facility] [place]OVID[place] (SARS-CoV-2) PCR- Asymptomatic [id number] 04:31:40 Test Item Value Reference Range Interpretation Comments COVID19 (SARS Not Detected Not Detected CoV-2) Result (test code = ____[place] a 87116-6) qualitative reverse-transcr iptase polymerase tim n reaction (RT-PC R) developed for t he [employer] GEORGE 680 0 system and inte nded [...] patients provid ed by the manufacture r ([employer]) c an be reviewed at:https://www. fda.go v/media/357931/ downlo ad. A fact shee t for Health Care pro viders is provided by the contact lens blocker ([employer]) and can be reviewed at: https://www.fda .gov/m edia/795270/talib nload Results must be interpreted wit hin [...] were verified by the Microbiology Laboratory at [facility], CLIA Accreditation # : [id number] and CAP Accreditation # : [id number]. COVID19 SARS WINE CELLAR STOCK CLERK Swab Source (test code = 04596) COVID19 SARS Pre-OR Procedure Indication (test code = 83251) [facility]OVID-[facility] (SARS-CoV-2) PCR- Asymptomatic [id number] 04:31:40 Test Item Value Reference Range Interpretation Comments COVID19 (SARS Not Detected Not Detected CoV-2) Result (test code = ____[place] a 05319-0) qualitative reverse-transcr iptase polymerase tim n reaction [...] patients provid ed by the manufacture r ([employer]) c an be reviewed at:https://www. fda.go v/media/880950/ downlo ad. A fact shee t for Health Care pro viders is provided by the contact lens blocker ([employer]) and can be reviewed at: https://www.fda .gov/m edia/247768/talib nload Results must be interpreted wit hin [...] were verified by the Microbiology Laboratory at [facility], CLIA Accreditation # : [id number] and CAP Accreditation # : [id number]. 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 If a problem is garcia spected with a patient' s result, a sample [facility]. Method descript ion: [...] Normal eGF R >= 60 code = 68253-7) mL/min/1.73 m2 The eGFR is calculated u [...] Normal eG FR >= 60 code = 45943-8) mL/min/1.73 m2 The eGFR is calculated u [...] [facility] code = 30510) [facility] [address], [address] [place], [place] [address]; Point of Care Lab Dir tiffanie: Rosalind Neal MD [facility] Uirhbhnlgk8022-73-88 12:28:58 Test Item Value Reference Range Interpretation Comments POC Crea (test code 0.9 mg/dL 0.6-1.3 Medicati ons, especially = 64568-8) hydroxyurea or supplements, garcia ch as ascorbate, [...] Normal eGF R >= 60 code = 15587-4) mL/min/1.73 m2 The eGFR is calculated u sing the CKD-EPI equatio n. The eGFR declines w ith age. eGFR <60 mL/min /1.73 m2 is considered a s "decreased" Thi s equation should only be used for patien ts 18 and older. Accordin g to the National [employer]'s Ki [...] s) [Automated mess age] The system which [employer] nerated this result tra nsmitted reference range : >=60 mL/min/1.73 m2. The reference range was not used to interpr et this result as normal/abnormal . POC eGFR-KAVEH (test 67 See_Comment Normal eG FR >= 60 code = 28552-5) mL/min/1.73 m2 The eGFR is calculated u sing the CKD-EPI equatio n. The eGFR declines w ith age. eGFR <60 mL/min /1.73 m2 is considered a s "decreased" Thi s equation should only be used for patien ts 18 and older. Accordin g to the National [employer]'s Ki [...] s) [Automated mess age] The system which [employer] nerated this result tra nsmitted reference range : >=60 mL/min/1.73 m2. The reference range was not used to interpr et this result as normal/abnormal . POC Clean Dev (test Yes code = 6672) Performing Lab (test DI [facility] code = 29460) [facility], [address] [facility], [place], [place] [address]; Point of Care Lab Dir tiffanie: Rosalind Neal MD [facility] CenterCytology Image-Guided FNA Nmjtanvnbaxutv4724-78-02 17:01:27 Test Item Value Reference Range Interpretation Comments Gross Description (test a1dksKSyKSPktQUMENvzD code = 6207678728) MiquiWcVUXkbKQpN5Apqy ktXBhnBL7sSN2brCjcdUS rwYDvVJ2KUWDxJoXnGZRk cGVydzEyMjQwXHBhcGVya CD6FRIdXO3hpnbjONciFQ caXGJomkY0LAGmuLJdA1E oXQGlYS3unhjeIXG5CZhx uL2iilKNZnrmLp6xpFXtu HtcZjFcZmNoYXJzZXQwXG IkjFolVARrJYo8pV9JPle tF63um9Q7Esp8HKMnWJXu F4DdWF7hYIElwGBrQ85EF zayARI0SGFCNygcJZNvFO 2Ld2qcLSJmlMStIMS0MUf xkNQtFYWeMKKmAHj5ZMWp MMnkdGXvOX7imEceRrfkd Bmoc6DkeYKmJEhvNRUwIB RsCIjvYTErLO9DRaZmXWP 3LAfnDYxwMMv2LXn7UC2R QbTmHGWuFVF8FHj1MCJgE Pm7WTqjGH0XGUYhKyU4WS I7JjQaNKSrUHamXXy3RZH gXFxmIEFyaWFsIFxcZnMg MTAgXFxmYiBcXGZsIFxcb kQ6JMKeIAeuLJQbUnIvNE BBOlxwYXIgDQpccGxhaW5 dALDcH42qe7GMa7WfIZ9S JKw7ehCrcduohD5lRPBtj yKzSEvxkWQbX9qlY8OwSA BxCsXeV6XgJ0avET2yPHD sy0H7dmWdCalpPFYrAYdm IERpZmYgUXVpazsgNyBQY URpO5HmaG4oS9pzQRWtZC JhalUBNyGvQN5wCUElxXC cmKZckBefRrarqBS1QByl DjaueB2uqFTMPPYMDrnCF rqahpHnJU7BSTWEHiVWAC 76BkO0PsB8NTljtMidXso mneMgpHLeWnGBhO9xsE56 XUxgNGPtw5AwF5Kyq5ycy PCgWMezCssbjHUmisJ2VI qREWOIXWzUQkWxYY4pKXv JTERCRUdJTnwyfXtcZmxk ezMrzFPlOnCKdL6qiO5bY Mc7HKGtBEstl7cnIILtTF kvy6PoWOuSCMJOXW1UIW6 fqMC8I6dFCMIAZDekrUoi VxegwfEiwMXhDiOYwE3vy SkwnM2ngUYeA2nhoYIosL VjdFxjZjFcZnMyMCAgZmx 5xSP4AJUjSDgks4vmYTIo BXwpm7ZgBLoZNOUJMK4IO F9flDL9AMjWRQLDWZkyRF K0KJfkoHA0v5okgLAkk6g 1PTyjKQF1fBzgpGMechcz dHJjaFxjZjFcZnMyMCAga L0rVyJQEGjuYJOqHPapW4 CxTEYpC9WauEXVgZ8bz2i gKSSvTTzCIBQlG4KejAOj GOrpU6FwPTvuZQXigl3hs GluOiBccHJvdGVjdHtcZm emtXE6MBqoEwwfhI1vvVQ JFRVTPreXHpjbmwIzLP5E QE4GNtAZDI45KKRyAwJ0G 9tNI9NCDKBPCBH7VPp4eS A3mD32UZLsMJLjkQXvLAz qB611MICqELBcPiN8WHKd DOyze1jdYJSxNDxfl8PuL VbZZWPKTX1VVW1bsJH0FT dHM5KUZIe4REM9YsucdUO UWLDHAIJXNVuhyLy7VCm3 fXtcZmxkcnNsdCBcJzFDf P5dkXionM2tuZQeZ5zbJd PySHCsGOHya2BvX6M2JRY tDXrmz0tiWBRrVNkap3Lu NMlLXEBORN4NOY6fnYL7M CdFU3KMU5dOtHgrvKD1Tn 8WuEA4kSnudDk4l1wpnCR jq7j7QFwnMKE3vCY1Nbdl PH08DTWkXRoxe5bcMAWqE Uehz7CdEFaJKLEQZJ7ATX 3jbEH0IMiEU5BJHWr4Wws 2bN5DO5apmWx4UQr7hQmi FwmnfgVfuLWeUzTJeW6gt GetuY7jbJMhI5ndXtZhRS ynCNDkXYvmL4BoVSKrzdK TSuTggvT2XGIbU9TnWBPg haVUGdciuVQdeYM0VKHeu 9Mjs9IrOA17ITWediFouO EbrV4calGnHWHwmEHvaBL 3YXMgbWFkZSBccHJvdGVj cJczHndttDZ8SElkWiznr V0psUZDXHKQNcdUYtslpk DnSR2CMJEAQeEOHA12FqA 8XuK0ZFd5zZkyMpiyieXk sKRwPlOCsA25GUikPhfef GI2DXghUcdssL7rtWLIRB JHKbeFSwcnivMxOB6RSNF LOZ7RxJA5GrS0lBN5IG20 CQQxGMTdxPKeOJijM404J SYsEEpbALt4wlMnPMJmMV cygmAaZLTmbXLIud7xX8Y uZHUuDQpcdiBTTUFSVExJ R5WyKTOQLJNFHHLqXrLVD U8kGyX3FiY0AB8oTjkmUn D1OpJ6tYZ1QPDXNUVBMKc RU2GuVMKXJDNSVBWzVQ5Q BXjOEJWPIBLUO74SMJZQH UYHC6LDY7yYQDPwx2Rlb5 2hvFwGMBUJJIFWG85AFLA KRFJDZ1TREDNIVMIUMNoF DYJRMu0NBNESJQBWYA8UV UdJTiAxXHtmbHVpZDoyNT S8KSh3PAn8eDWpc1MlxTW 3DqL6NlDyxQLYJBTHAFpY JSLPDj0WTVYPSRAEFM3KW eAuZ3VFCT1QTe3FQRCOBP LXJS6JIGaASsEvI1STUH9 HCp0NKRFXSNZXTU4KZgHw OELMV6WNKhLCB0xcYIVRJ SBOHQVwGaHZZU5cUXWVTV 9TKCVULVAIN15JOSOJMZW VE8UGVM1BFNEyxPPAVNX6 IO6fXUn9OLohLPRcG1PwJ 9IiecPpbJNxXOScjiWcb0 wmPPX7BICvjEQeeTZwQuD jMnbzHOZ1FKRsPKbsIY3F DTItPZU6AAfebU63pFYwB M2NROXsOOqnOQKdVINvso G4SPHsvXWnOLW1PN1wpWs jmJEqrmvhbiK3XF0MhO== Immediate Assessment Adequate cellularity (test code = 9837) Major Classification MALIGNANT A (test code = 9839) Diagnosis (test code = r4jxmHAeENWqxXL7LcPaB 34) REru7jad0GetQMjyTQvJR raoNAmrxUpzy46hEZ8pB7 2WD3lZSSjHiC1MTRzgwV1 Jyc2FUUoGCAhvYDhK540n 3scj8ixspVxpTC9MYBoMR HbJ0SrBP0gAYEqhESdI75 oxFKtEBG1TFXgOXZlyITh JBUpOEQ4DAXblTLdK8khI DIzVQ7ovagnKUtiZQccZU KecKJ1FJJhfTFpC0JkWSD lVWjrHCAwhwq2QxBoXs0y qGLozKgaNWyzA7sexU9kG pR6ZAdgV3czsM2tANg4VQ dhHRIxyEO6nuH9HSHffFA sQ0AymG1fZZTeIT7owkb6 w2ofLSY7DOmxPUGbAwZ4e bS3HZLdcKLmSPsuqDQwzi xmczIwXGNmMSBBLiBMeW1 jdBVge2SqZCKssLesqAQo eGlsbGEsIGZpbmUgbmVlZ KezLFLcsTvqZYEih160FX VgiyrcFKZwtTZgCG1AVRB OISFVVGPyQ8ODL2dDA41Y HJIIQkEFV7FUTzSsO6vHI OMSAfPCW4AmBTGPXLDNBB BccGFyXHRhYlxwYXJ9 Comment (test code = j9rtpYRtAOIrdYM4JzKyL 9835) QTqs3gju6GlqAQtePSgZB vpbZYejvWnoi79jMO9bQ4 2OG4kCKAxGhT8KRLctnL9 Myb5NWCiKNDwlORiN659z 9pdx4zomqHocBH8jXnaZV LmyrasAzA7BShcJGTlexx bMAw6IMaiVIRdbFS0HXPw dFBeX8XrBQGdET8bhwg8U UG3RGhxFAMbVkD3NRVnmS FiCOGkpNtzAEger184VTR 9WzIcNTRoirQygItxuW2z AdBfSVRWkCLyZ4XsiFIso Q4brfGfavVhNWMcnLopxa H9IGDdP70ynMLjZqX1f1C 2MFJll9ZeKFJjkYjuPNEi m1IlGLQmTCcnm1Oqsh6gW HBhclxwYXJkXHBhcn0= Retained/Biomarker z7adzNPfLEUvxIC0CjVjB Testing (test code = WFrb5bxd6FgwHJadSZbAC 9826) uhmBDzzqUlpr76eAC6lF4 5OZ2jEAOxObU6MOUizkA2 Lze9OWMbCGAvuTMaJ870q 6mun5mpeoNtkYU1nSvyZR EqitefYyO8BAbgZUUsgjo zYUe7DPsyLSQxlDN4KCUg iXFzN1InDXBnHU5kcav2P QN4RRcrORXlVsJ1HRZakQ YlHFGgaRpnHVibq764WSA 8OsGcESHliqUtlNoffC5r ZnMyMCBTUjoxMFMsIDFDQ xolJRItVOBXGKWJPa2tSB JmnUQfML0JCXKNDPK0H3T xsXZcMB8MGGRLDMOIWlPJ XGxpbmUgTURMIERROjNTX HBhcn0= Informational Points i9jccNAbBDIupYItNkIbQ (test code = 9836) BBxOXNlf6rdYXEllYRsRo EwMzNcZnRuYmpcdWMxXGR vLcCea5yuz599wQYcx4ou UZEcSwH3hXLhNSBrdRSwU 419HICeFBlny1rys7YlWR DueNOzu7J1APBFTAotTYM GTKb5s9lyNiQfAuY3rOFl QPsfG0mxegVlsJNyTDQjY Gv4sZ85WGTnuA5ewKJqJI sepwCiWvW1OHsuYYOmOiA 7CPNnjBBkVEUeW1gnAAKv RPhdFQQvMElvoJSmHQC2x Ntrz2M8jNWxsTBygYtvJl NuToZzPfPYh3JdDMu7pRp rC2PkTPYrZbU8hUEgTMDa NUceVOJoHIRbntE4vA42B UqyskO2xYJdk8Ars46qh8 01qV0fvDRjUSA1XUFbKXL vaJPpWTWlWID1NQUzsJVk R2qqHVQiIR1acdsgHHpbQ RykPSRloRF0XSYrvZMtC8 FaYVKmOCvhMISprbi6IaT uPc2hlKCchRrxBZkcz6fb z2lbeXWkEte4ZKDsFtZaO qhqIPvgd8Dlg7fjZDFytd 8jVWH0gBMwvXlfv4J2tDB qSYHvgPQuucLcUEFizz49 qUOwwQWddKYcxn7sxcUqs RLaoKIfEAP9sYFqijKpJB OpzKGhBGQlFTEiM3buUbV pfyZaM7liT3DiLKUaWJSn AOWoYsDyymDvu2Zzy1Pwu YWozZb8o4omWJOhTXWysY xvz8voUAA7IHJqD2M6pKN fq2qsWNvrYHDpiYS3stL9 SLScdQViZ9InfP3tOWMcM P5keyr7p6fwGAZ7XMisJB AdQpE8brW1MWMylJRxVTO yxPwtZOrob919BPG4ZgBz UNPyr7DdQ2BojYwmL52tc NcmW50vLNLpcBobtF5ruQ ukxZ8oOoHkRcDpRTkkyQv gcGUubgiuDOibazT0YBsx mbyfBVDmJAxjH3ohStUzB WAokFznHDmes2QdVESnGZ BfFQdadGOBt30bFKAms8F qWLTwyR3tpKCmFParysSj xLM9SZueeaEwOdSjcbNtT LWyuQ5cFGLpMY4pLTDvol Ottt2nzmOuZMSwFEAiQ5F jocldbZjtwyUmUGExij1l qwUqLFF8JXDRJK5JPUFiC CWju14rZCRrhPfflH2qkF VsutMoFBHmd2ArsB4rcLZ AKIBhV5tgOG3lTMrrv4Wu eFZykQWhhPG2PFFvs4FrA xTtshPrkDAvaGHwJ9YmiZ xtF7bjQFYwGEZnkaAybSU rg3MlBGMajPB1fMBhJC4C MoHMm82cLUMxOYOWhrPfF HWlaYcvgPU3huJ5uL8mMx PKvZusEAGmj5Ryo1VtTNL tmmYcfiUhBTN0HGlpcRNh bamhXMsqxvY4RHmgtertJ SQfVXbjY6zqBsAoVWIwvX zvWVhvv7IcSOHeWWCmVvh jueJ3PId5yhKaLDrbX3Zk mRQTy0YusN1oGNGaLShna 3V9jJAqBB6uZ2zuBeZZoP IwuNR0gR2im7g8CLwtHn7 hERLqxvwwoWiovQ8hRaUm DbDbSIvdJN9tSZJfE2qnj WFnBJPzOBTwF7pxVeLieG 9jaFxmMVxjZjJcZnMxOFx pICwgXHBsYWluXGYxXGZz MThcbGFuZzEwMzNcaGlja FxmMVxkYmNoXGYxXGxvY2 euUbBaJ2QrOSSgHXkpsHH aN1icyNPwIMTdQUJJZLT5 DCEwJLP9BGevUDslzIQ8y 53cSSKOPOm8PNq0CBSoFA luXGYxXGZzMThcbGFuZzE wMzNcaGljaFxmMVxkYmNo ZYYaCOgvO1liUwHkQ8JiO GZzMThcaSAuXHBsYWluXG YyXGZzMjJcbGFuZzEwMzN caGljaFxmMlxkYmNoXGYy OWgnO7etZvPfNvCbJmmsG XJ9 Lab Interpretation (test Abnormal code = 25820-9) [facility]NA Pdkltntmhashpp2976-91-71 17:01:27 Test Item Value Reference Range Interpretation Comments Gross Description (test b3fozUDgQPBprMKOMXqyS code = 6731911261) YaxiaDaQUOsjKSfT5Lilo ttEUtpXG1tSH7doZzafHT noSKbHV8MTPXgMjVzEOQo cGVydzEyMjQwXHBhcGVya GP5HYQnGD6wknspVYatNW qfRIFqazX8FXEnsNCoW1J iNFAvJS3vkerwXKH7VFmz sT4xguKWCzxfXl2nmCNkw HtcZjFcZmNoYXJzZXQwXG IhwLoeRAFzXNt2qV8WEor aI79br7B2Udi4OBMaUYLn H4VlPC2yUZEpyLHpX14NJ cnaGNC8PPDQYgchUHNrEQ 3As3fqDLXjiYGjHSD5MGu azZSlARWvQOToQOi0ZEBd KMgqsYYrFY7poWrfTswcw Gabp1HhhMNmFWfgLVBoDJ IaVYzwVUPeUN6UHvGlLDA 3NBsbTQvnVOh2LMe4NO9A FaOgIBPlKXR0EWp3OHRoL Ef2LKxaNT6WJTJoXqR2ZN P2IbWhCFUsBXovLQf5BUO gXFxmIEFyaWFsIFxcZnMg MTAgXFxmYiBcXGZsIFxcb pW3JLZhOIiuZBEhPeQkLL BBOlxwYXIgDQpccGxhaW5 uQWYlR23ax0MHi5QnTZ7R ULh5ymJpuurqdT8pBEOqn yVuINfzgITiK6hmQ5ZqWW UlXzVpE3NgL8ubTH2lEQX wi9I5esFjLyspFKBuVAaa IERpZmYgUXVpazsgNyBQY GEcC0WzwR3qI1qgCZKwIF NdecLYYmEvAO4nXTQuqOB vsKXvqXraVyvlePL2WEne UyzovX9nvXOIRBOLFpzLC pqfdmWjIC3YONAEChIYHL 08RrB5CeW5BTxquNokLgd kgwGniBCxAxADaY4orU95 TKelIHKez8FbD2Tlw3gpu OCgKHrbOdjpfQZvrrY4GB dEAVVGLGoJHgGuQK5hZJu JTERCRUdJTnwyfXtcZmxk ytQydHKpOfPCeS6caX0eV Tu1JMFpVQsoe8igREKbMR yio7JqGSsCBBLJSP8LBG6 leTU9R8nCZBARZGovsGjt DrbzqzVwkSQiCpKDpQ1tt PmtzB3cbSLnU0wwgWQkwB VjdFxjZjFcZnMyMCAgZmx 3pBZ7QFMvQNamg3quRVFp OSxyt0SgJHtGLKSQWK5MY U3cfVN5ZSsUUACPZYfwGN H2JWcsrNJ5r2yfpDNkl2n 0JVuwYTZ4wYgmoATmtavq dHJjaFxjZjFcZnMyMCAga Q9kOfOQERwoUQUrJOvoU5 SvSELnP1WvuAWBqY2qa9i eYNCtHHoBLBOuA2AwzKYp VPjzK4RgWMgtEFNokt3wa GluOiBccHJvdGVjdHtcZm hzlKY3ZLbjSxrjlH8jyOM FFZIDUfcVZyfidxXzOF7P TQ3XAjADVP74BHDiAlN4G 8iYI8RLXXYPDNB4WEc4mI Z4sV71ZWCwCHSqxEUqSQl jI308JFVmWCWuUtM7OOHo JVsvh6xjGQHtHHjrc3LeJ HuZWQAWPQ5VAD5jqOL6SQ eYB7QAGJk3BTW8RmftrIJ RTUIFNCAYAVwbdWb9SKs3 fXtcZmxkcnNsdCBcJzFDf J2heGtgcO5akCMoL7efYm ViVOZwJQIrv5GdD6I5MDA dVWbsx1miSGLkSGdza6Gx UNyNXJMUSY2JYX8duJW6M MaAX5JYM3sJcXzhiZG8Fl 8KgYN1qMwtrDu7b6byxLI tp8j1CTmfDIQ1fLE4Qoag ES74JJUgFOdaq4yyLXYbK Scmp4XzIExUXVPXMM8WBQ 9dvRC1QFiVQ4PAIVs4Xxr 9wW1JM6ptyYz8LTh2bUnf DhewdmRzrWQuLhZSaN0wu LuabU5ciPSyW8slVxVyJA wbFVCxRTylM6DoBFUgtzQ PHvGlxnF4ZHJiZ8RbOFSt fiGVNvaqpCHipCM9BYXjb 3Jdi4RuBE19HVIrfpUtlQ RorR7hhrAqSTSagVWmeKJ 3YXMgbWFkZSBccHJvdGVj hIyxGmdepTU7JSuuRpuwg F7zuPKLCSEUDihKVrmkip LsXP5MPVEJTuZJQE15PuD 4RlS3FJf2gQgcUqcrapZy kTKzFqGZbN47PVumCnpzu JA0HJloOhxdbC7lpIYNIL QJEaoQEbmsmfKhPZ1HMKW RKF4JeTV7DpE5yHR9LT67 RYCbWRSjhRHbBLngD160J VBdGAzeDGj1wyWoOFHoAB doerFwEUDknMAMkp7yU4S uZHUuDQpcdiBTTUFSVExJ T6YpQSJXLAMXFYAeMtWKS F0xCaQ1KaH2KB6kLjffPk K3GzU3qHX0BWSRKSKSNVj TK6NoXZCUZVCJIFJqQC7I LKaGCYAYNVGGM17DJIFDQ NPBF2TZF9qIEJUyb2Oqf9 5jgVqMJOIZAOVXT90LYOW IERBXC7KQQXZCBIHVAWgO JDMDIy0OEUQYSIDKXD2XK UdJTiAxXHtmbHVpZDoyNT T7NRj2OFs1dPRjp5UwxHN 8WuI3DrGzhOFVGYAQKKqG BNBQUp8GPQCCDFTCVL9QD lZgD7JKFW4FAp0XCIHKKK RFRZ3DYStVXmSiZ5AIEX2 KQf3ZQZOWQFCQXH7PElUt UQCIG5BZOfXBU2eiEEHTX QMNQDVvRnUKFV5dZOBPAV 6RLPIFSSCZF19QTWGIBMV FJ7ECPC6EJWWbnGVFMRJ3 MK4aPVm1HFvqAKVfJ8AkH 4GjnmSohTArGSGqibGyr2 plKXC7OEOwtINorHAuRiK cRudxSVH4DCKxDTpsAC7O FYDyWBT2NYoioQ99fSTpS V9FYYBiOPqgTMOpTPFypd Z1PEWvgBDnOLP2UQ1skKb abACqyertmhS8MP3EcK== Immediate Assessment Adequate cellularity (test code = 9837) Major Classification MALIGNANT A (test code = 9839) Diagnosis (test code = y5bpgPLbKEOsjNU1CfDpC 34) USol9vlu0OcyZEioGXzQP mspGVdkhZbgh48gAD5jN8 9VN5bCVIhPkI1BAKignK3 Azr2ZWBbCSDwmVEaA660k 9eth6nmkvLkkXR9MDHxMH MsX7PwKK2lQOMkoAPtV46 ihTZqYAY7LVKiCJYwoVEv PYMhARG9EMTskWFrI3iuH KGoYB2xnnynSHzsHFarDN JtaRL3XBWtyMYvK6KaFBW zERgrAPQbpfm8PdKbCs2p xAPauYkoOIdcS3asaG6pK iB0GEhpZ1nidJ2mIGw2MP xpZJLmgHR5yuM5CLImsEV yO1HfeT8sDZWbCX2nbgk5 h9okAPX5CNlbPAGmRwT7g lO2YPEksTYkVZbgtSRpho xmczIwXGNmMSBBLiBMeW1 zvBZhm7OrDWAcoAwglZKl eGlsbGEsIGZpbmUgbmVlZ SutHWJmsMetDZHdf891CM VknqzePEIqeGLtYK5YBGF JJJGAFPJiF5SWQ1pUC42P IDNRTkZRY7ISVaBxC4lRN HJGNkTFO1ZgNEWRYSTGZV BccGFyXHRhYlxwYXJ9 Comment (test code = i6mffIIkOJUlhPF0PhCfO 9835) HLly1ttm8YgnSCqwPQnIR zlpINftuIzen92uNK7vP0 1RN5yTIXmSeH1UZPunyO4 Wpt4OBFrMFSugIUpP158v 8byl9ziykWauNU9aRguCY NkzsjcJaG5XIjbHGCesne kHYa9NLvtEIGlxYR6KZGo vSOsV5HcTZFeFO8rogy0L CD5EXbeUAFtJfH6UQKloI XqCECyhAgaKSeyr971XFC 8HvGeUPGzbrHsaStcaK4l VxKkLCXCuNRbM2IxrRRhn J0vxnAhyeVgHQOelZhhep G6XTLiM37owRQrCcY4c7H 1CSJfm7OrXIZdsQjwVFNi y7ItLAHqTIxai9Elbt5zW HBhclxwYXJkXHBhcn0= Retained/Biomarker r5gtnGXfUTTahQV4AxMhH Testing (test code = ARux0mcs9LctNSqvIAeIG 9818) plwSCuckLdhd70dBE9wQ9 5LS3kDVZmHyK7VILpmoU5 Gjk4OYPtSCMirBRkZ471t 3gtd0uheyNzeQI8eGpcCB BurvfvDkM1LGchGKOnfyu rVUl3WKzfICZuzQE4XDLp bDXaK6IwUXGrXV2rhek4T MH6VKteVQFkBdQ8FYIrkR FiKGDbsHgsNTffv968EZJ 1MxZcQMWyrxRpvVkmyO9j ZnMyMCBTUjoxMFMsIDFDQ khpKYMbHGLRSEFHKb1bSS LfcBBjWR0TPIUFXFX5P1H jbZQpYS4DFMRFHMPRUbPY XGxpbmUgTURMIERROjNTX HBhcn0= Informational Points q5ditJOdFOBzyHHfNtXrX (test code = 9836) IYuNYEns6ojSGVwqVJjWm EwMzNcZnRuYmpcdWMxXGR nAdBmn0hdf208fKLwx0xw LNHfJzG9dSEfAMTzkZNlR 898VTGtOXtcj1uhg1XkMB StgVWdt3R8ALJJIViwJCV HTFh5l8msQdRaOaC5bCJc NProJ1yxmkIdnPXiWIEtU Qv4zI72FJBkbQ3fwAXxGV gmajIzUnX8WBntMZYeOnD 5YTLeuLFzRQVlF5kwKEVg FMfpNAWoEMgvfJZcVUA8c Vgqo4M8tDHgmUWqnBcnPy ZfMbWuUwOPg3RsDUu6jMl gQ8QjYLAcRbW0oQMwENYs XYdcWEMhSDLyyoM3zA45P QcyqsU2pDSli5Mmk13jx3 60bS0jzRDcKUN5CQRbOCM unHLiQTQbEQH2IXKotMCo Y3jxJKCdMP7nhtzmVKlyD QzgVOMohOZ7NTLwbZFwB0 UzDGYbWKozPWBaeon3EzV tPl4acUEpiIprYFkgw5hg q8rhdGVmVmh6XKOtFdBmI sdxWWzvz1Oll2bhXJEfom 8rXDC8hYPhpYpfj4L2xYK jXCYohTBmbcYgTPYhfa32 nGThmFVbxHMwfx8ctvGjg MAcnLJrSUL4xBDozgZoSZ VwoZQpBEWoMCBbW1rqNzB omrCiI9itQ9FuGQAuBOQd ZLIuFcPqmsVmm8Uqp5Gdn TQneXm3p8zqYJMiUVGqbP kvo0lqXRK8HNEaH7N0lTR vf5ugINxqJTEeiQO8ltA2 STFjoVSfQ1EuaB8yDTXeR I3zyxw8w4xbGIR5NPbvJQ LmGkK5rkK6VRJoySWpTRC ulJdpAQnxc904RRE9AhJj FKSjt6RyK9YpoZkbZ23yb IysF36bVSJclYmwwD9bcN eznX1gQqWpDtEmYSxwfMb mfYBvrmyjWPeiiqC7KEvq fsctEZLlATkpJ6ulWmGkP VTndRwaSQfck7EzENVmRB GsITzfwQXJw73lUPPir2L lIESspY6ksJDwJJvnixKj tLY8SLrbczIfVeBgzkLnQ YLkfU7nQPTtMK5rRZVcqk Glbm2kvxSuUWLlKQZvE7H wamsieRrxnvBvUMHcpp4o trMqTWN6FVXOQD5MWLGaY GFdh93zDNKlyCgujS0ybM NvtoVqNZQhg2TyrC7feXF XQWKnR7efJD9lVLawy7Mx fMLmtRJzkZB1WEMqp4ZnF rNwtiQzfWBvcYLkE5KqeK yxG5lvWXYoLDXgbqDmhVR vo6FrPYOiwPW1hYEjYL6W PtESy63lFUKbBPGWgcAyH GLdwYwpjWF8ylQ9oR7eYp SIiPtyCIZjw0Okm8QaKDY vvhMzlgJmKVO6MVvsjODb zytpIDdycsV4CGoqxixuN QNdKPvpI2hrIqUgEIWsaJ afNEsdn1OzCBXgOBWkFaw yeeJ6MBh1mrZcPWqjG1Hz nSIXt5SnkQ0kDKEbMOyiq 1B2kFUfFD8nQ2amImHMuA EpqYE1iG8xn8f1CYabSa4 iTDWmlarzmRpbsU6eUlTz EnItBGapWP9yAKQnP0gvi FRaVMFaMLCwS9uyAfNtnI 9jaFxmMVxjZjJcZnMxOFx pICwgXHBsYWluXGYxXGZz MThcbGFuZzEwMzNcaGlja FxmMVxkYmNoXGYxXGxvY2 jcXzWiD6QbSMNjQXymdLT wM8hrtIYeHTImKJLJICY7 VULxACJ8KVyfEPswqGH1r 25bHQGYXGz0WSv7RYNkLK luXGYxXGZzMThcbGFuZzE wMzNcaGljaFxmMVxkYmNo OECsIWrkM3klXzUiG2YgC GZzMThcaSAuXHBsYWluXG YyXGZzMjJcbGFuZzEwMzN caGljaFxmMlxkYmNoXGYy PUwfL3lpIwImNsMvRkhlR XJ9 Lab Interpretation (test Abnormal code = 32613-2) [facility] [place] - Bilateral 2021-10-26 18:55:03 Test Item Value Reference Range Interpretation Comments Radiology Study observation (narrative) (test code = 13851-4) IMP (test code = IMP) Biopsy should [...] indicates site ofbiopsy-proven malignancy from outside facility ([facility] over read pending).The mass extends to the [...] Abnormality Lab Interpretation Abnormal (test code = 32380-2) [facility] for Breast Ultrasound (Add-on Only)2021-10-26 18:55:03 Test Item Value Reference Range Interpretation Comments Radiology Study observation (narrative) (test code = 77227-1) IMP (test code = IMP) Biopsy should [...] Abnormality Lab Interpretation Abnormal (test code = 62344-9) [facility] [place] Neck Soft [id number] 18:55:03 Test Item Value Reference Range Interpretation Comments Radiology Study observation (narrative) (test code = 20027-0) IMP (test code = IMP) Biopsy should [...] Abnormality Lab Interpretation Abnormal (test code = 08383-4) [facility] [place] Digital Diagnostic Bilateral with [id number] 18:50:10 Test Item Value Reference Interpretation Comments Range Radiology Study observation (narrative) (test code = 47496-7) IMP (test code = Finding in the [...] Evaluation Lab Interpretation Abnormal (test code = 91752-4) [facility]ation 2021-10-26 14:09:59 Test Item Value Reference Range Interpretation Comments Materials Received (test n6cedMSwFMArvPRgNaEa code = 9973) ZQQuURUfv5ekVCEhaQNl ZzEwMzNcZnRuYmpcdWMx UWMzEzNur0jpm975qDGa f9crWQFbDvD4pUWuAFEq mTFdP723BUFgPZrfo9bt h7BiDMUhbXQou3G1MEIG wevuxXy6vMnnZ60ki8S0 LlsqW3suPVXcQIUdR3Yl QA8bQKNbOah6BIZ5QWB2 JIDoRHAhG3NeYP7tVSRl iSPgEAd2r8bzgUnsTYKr IRF2k1rcIFgtgiBjFA8n sa9auSq5v6azhyEoRWFz ZJDagNFRHLUuS6WnaXoo Zh1gqLq8yBaqBluuGDO0 Flx0WA3kwl08xgi6kHvt PDGbypbdJcN4VDqrVEWo ffbzXSx6MLdzHZNarDml MFxtYXJncjcyMFxtYXJn wCZ9NVKfrLOdJ5OiDQXa ZYeoYRHgrzf8YrRmAv8e lXDqtAzsOJrej5hnj7bj wKChZfn0LTHkFcLcQzlg MGsrt2Dnt3sdJXSgta5y OPH4cFTqkGmoa7R0vKFc AAJumPGkjmWdIDTiua31 gUYmyKWttLPmkh4jnnCx lJNjkLOeUXD8yTFzfvKq FUAxnYYnJDCsJW2ruGKx XGMdwU5hocomCVDhYxJa qcotIEOdvGhfihMrOc9l lKupVUO7HNaxQ0vpjT9x JkA6TKlsK8itiU8lUTn3 OLkujXD8PFRjyO2hXN9b aqvrf4yiYxFpBS6pdlnr a4isRhEzPO6hvii3w9sh YEL4RJsnBLJaUoV1syM8 NDBcaGVhZGVyeTcyMFxm h039GFJ2ReBqLQLnr9Cz D4XbtIeaT45cxHomD64k LQWluVzyuP1rvOxlwC3z NtUfBxTuFKf4uv64DKx3 cvnjzGecPYy6baBpOZYc GWJ5GTMgwEOoSCScB1g5 znYdSCJeJGY4TBAmvBPk RZGeB1c6xtYpBPP4CWd0 cnBhZGRmdDNcdHJwYWRk YjBcdHJwYWRkZmIzXHRy bIPpkIVxoJIupJ0tgMur IGTqlNYxbK0mRIV0MCWl cmgzMjBcdHJoZHJcbHRy vx42UENhkbVeyJBhjNbb yFKrQJB3HRTyPFBkALNg HYC9FKGiNcFmjxIyWAus bGJyZHJiXGJyZHJzXGJy ZNH7FZQvYhBrpaFvZHuo bGJyZHJsXGJyZHJzXGJy GTE3YYXrVhQkdpUlYBay bGJyZHJyXGJyZHJzXGJy XGN8XMXyMtJwwuJxXZwf bHBhZHQxMFxjbHBhZGZ0 Z8qipKZtWJSgELkoqBRz XHLqV1hytPYhAPqfUMIu cGFkZmwzXGNscGFkYjBc B1anFHCjNuQiM7KsgFa0 MDAwXGNsdmVydGFsdFxj dAWqUSQ7DZIfKOQzTBHe IDD1RCAtDeXdehVeFJqz bGJyZHJiXGJyZHJzXGJy WGG6CKGtQoBxyaUrXYii bGJyZHJsXGJyZHJzXGJy IGF5NKJxVlHlcbCfIYee bGJyZHJyXGJyZHJzXGJy VUV2CPPuWuCouwSxFRud bHBhZHQxMFxjbHBhZGZ0 I5ycnFHkQMIrYKgudOAk HTZaS7ogsSJlCUdsPEAu cGFkZmwzXGNscGFkYjBc R9abAFDyEiQfI8ScuZs2 NjAwXGNsdmVydGFsdFxj zXNkWHE8TCAiFAHmUAVz HVZ0KLVwMeViokHkXDmv bGJyZHJiXGJyZHJzXGJy DRS9LEWiNgZbbwVsRJhc bGJyZHJsXGJyZHJzXGJy HYM7IFMlObKtmhSpLKbh bGJyZHJyXGJyZHJzXGJy GTH8OKHuWaRshwXlZLav bHBhZHQxMFxjbHBhZGZ0 D5rgxBBxWXNmFWubwYFb VQZeK2chjFHeONwzATBh cGFkZmwzXGNscGFkYjBc E3tmTEVsWpDxI4PnlQz6 MoOeYQPxmlUemH72Kklm o6PfBTIrKXC7QBscRBxs bFxwbGFpblxmMVxmczIw ZGqhhyizRZKpOZtbX6rx FwHuDPImeCzqDWufl9Bb XGYxXGNmMlxmczIwXGIg JQGvWEGkgS5mLkfgP7Qk cR9mDEwrAmnuD3ykLAWi w6UgxX3kJBjanROlygub MVxmczIwXGxhbmcxMDMz IHeaX6ndNzCbVAAwhEla XRqmp2EyHFDoTHTpIvhn vrPwILt6yqDdGSFhvPqh qWVsAHkhsuCfnHina9At szAgbMutWREtDXt1dyVj pwpddTp4gNWeqRdsUGHl qKlbmJ1oYgTkElXwLLbn bGFpblxmMVxmczIwXGxh xfkpHPWsHKowC8vzSkQk GHBgcIufDAstp7BrFLDs CBBiPgujknTfITPgZ83x bGVjdGVkXHBsYWluXGYx XGZzMjBcbGFuZzEwMzNc aGljaFxmMVxkYmNoXGYx XFhvM2hmPwKoH5TtOWRg PvZxnMMuJ9wtS6BqwIro YXJkXGludGJsXHNzcGFy QVX1zZEytaJtnUOcgRIn RBUzVGtmJGD8mJYhuhzj oIPewqpuEWlhdkK6RXJj YWluXGYxXGZzMjBcbGFu ZzEwMzNcaGljaFxmMVxk EjDfZROrSLpnL8luLpRp E9XlZXMdQeGjKoJKVNNv aXZlZFxwbGFpblxmMVxm czIwXGxhbmcxMDMzXGhp O4rlLbYkLZIhgObjYKnu f3IeDJZgECUbKrwwonLr AMd0feWjIORlzJavxA62 Ocfapj07KUCyr8fpZGYx I2ShgLSdBHUlmYJmRXnb MDhcdHJwYWRkZmwzXHRy cGFkZHIxMDhcdHJwYWRk ZnIzXHRycGFkZHQwXHRy tMHoGCD7I3v9fvLcPKOp RMt5msBdNISrXlEqwSLz XBA6PFm4HuxgifU1pPJb Q9e3LbvcvuJoVAzvwPHj no13AHQwosVtlDQtbErv rFUcXNK0HJMlQRNlDBEt WED4WKUzImVngaUeJVnb bGJyZHJiXGJyZHJzXGJy FOI8VPJjLyJosgAgNHij bGJyZHJsXGJyZHJzXGJy EAB1LXAiCzCqtkQnDGeg bGJyZHJyXGJyZHJzXGJy FWZ1LFPtLaCsmiUeLMih bHBhZHQxMFxjbHBhZGZ0 O3qfnBWmNIGiFZxonRXs JHFyT5lttMPqMAvrUASj cGFkZmwzXGNscGFkYjBc S5fiNTMuAlIiE3XxpZq6 MDAwXGNsdmVydGFsdFxj fEQrADF4JQEfFVThMKYb OZT2BJNgWrZojiIvAAiz bGJyZHJiXGJyZHJzXGJy ZZQ0IVEyPvJnlzUmMIeq bGJyZHJsXGJyZHJzXGJy DDM6FNHhAwHehqIeRAcj bGJyZHJyXGJyZHJzXGJy NDY9TWYzWqZzlwDnKFdg bHBhZHQxMFxjbHBhZGZ0 K6ehhYOpMTXqHHeyhLAk WRWmE5pagMZmXBddPGQr cGFkZmwzXGNscGFkYjBc Q5ppHMSzQeBvO8BfdJl9 NjAwXGNsdmVydGFsdFxj tCCpNED4VFFnEVEcICYb JLP5EMMsHpXbdxXyOCwg bGJyZHJiXGJyZHJzXGJy ZQV8HTAxVqXyzsBpYJyy bGJyZHJsXGJyZHJzXGJy LLK3DRGsItBawmNxQRxp bGJyZHJyXGJyZHJzXGJy MQN7CWIsGxKeihQzVAin bHBhZHQxMFxjbHBhZGZ0 D0cymYVqBYLhVViytMSf OAKmH4foeWSeOXazQVCp cGFkZmwzXGNscGFkYjBc G3sxDPQgMcTwH0JedLq5 GbBpLVOtacNbfP29Whyk v1XfLTFsACJ9EOshPTit bFxwbGFpblxmMFxmczI0 XHBsYWluXGYxXGZzMjBc bGFuZzEwMzNcaGljaFxm KBceXvOiWTXsRGdaL3mc UvRyR5EdFMYsUkOzAN1v NcVsRGT4FNG5ESK2UBWE QVCnUNKKT4PVMrzpIPJJ T2UuzRuxdQ7yZoQdOyZs VCziCI6gTMPuS6tmySEr NGKkOXIfG1fjVhOraN0x aFxmMVxjZjJcZnMyMFxs dHJjaFxjZWxsXHBhcmRc rK76Qgjja2GkYXFmQOM4 MFxzMFxxbFxwbGFpblxm BUtjdwK9AQCuEJypWQUj XGZzMjBcbGFuZzEwzNc aGljaFxmMVxkYmNoXGYx FOeiL2azQfAlC3QvVVWx XsYuPN9pWk3kGXGpFOBp YWluXGYxXGZzMjBcbGFu ZzEwMzNcaGljaFxmMVxk GmYnWKXjQNmtX6fsLiPj J3RbFKNkKrVmfBDiZ7bm R6ImnWuzQVVoAFrwhNLe SVZlyQHjNNN9lRRrreOq wWjtsYkyfB3iGkUkKyRv NFxwbGFpblxmMVxmczIw GCelzmvuTWZrRDepV4ee PvDjEXAqcNdkHNmoz3Kc XGYxXGNmMlxmczIwIDUv LM3wYOWaDWYuSHnlBERd XGZzMjBcbGFuZzEwMzNc aGljaFxmMVxkYmNoXGYx YNafV7xzXmKjQ7JjVAHj DpBrdXBuI0nwK6DoaXtd skBjhNqwe5opgIYqQCbv s5EsujSqqJllMITrQZIv XHBsYWluXGYwXGZzMjRc zJcloW6qFoNrRyHvEHul LV6cHIPfS9mjhNEoWJKm ZYGsF8rpGcRcoZ5glDuv MVxmczIwXHBhcn0= Diagnosis (test code = j1sqqGHwIZRbvOH8UjTd 34) BVXqg6lyk8NnoYJnzXTw YDblcXOfdaTfsf49dKQ5 bG98VH5dZOZyEuK3NSVx keQ1Dic1IOKlYZBufHZt O992d4djj1srpsEspRE1 YMYwYASxN2NvFX2yIRBr sKMzQ72hfLEhQZT3YXFq IVKxpTQfIODrTHF7MTKj uRWsP5ebRXInJJ7wlxof AOsiWHbyRBBzpWF0SSRj bXDyU5WwHOUqQCmgRIEg mjy4SuSlQg3vbQOxsBus MFxwYXJkXHBsYWluXGZz EmUlJ7OrPG17lYEtEUQy OJUvIq0eIyY2YAzoKWHL NbazBBPMMY2IB1JbVMYo YGBPUQWth8jnVKM9QAKc e39wGY1qIp3tRRNqCIds cGFyXGNmMFxwYXJcbGk3 MjBcbGluNzIwIEEuIFJp M4u7PJUpXESpuPB1hCJa mqQdbh1gviSlwN6fj4oy SGEoJFW1EVtnwFwlBMgY IGZvciBFUiwgUFIsIEhl dnTmWKOiAKBsdN12ZiTj qnPGXDo6WGOqxfwtZJLw tRizRXUwUWqzajQ8RSFy RY6EJCJODxGlIJALRGUP JDVMYcFOTh2DQGlaXo0u D8CWL3iOCFDZHDKQSdwh CMTvbISsYU9NVZMZMckL ZC7iU4JENSMlSvTaNpMt HDEnPgZrHH5trIMiRTHl cgVQkTKecDI8QVOwECcL OlxwYXJcdGFiIEVSIFBP D4eXWUDCWFzdYUMuAEYz DbuyiGRzRBwuFpT5ZKfd hZ4vKIVyYBCPEG6XP1PY ADKUCNv1FXOlFEExmoFR KLXvSrPPMR8XG7XEPXYH EQuzM53tPSZfUrgyrIXj QNwqUPR4HO0AAGAUBCQG TFkgRUxFVkFURUQgKDI1 HFseyRZcOBjpGFR3PCtd lB8yQNZgFQPcsqiezRUz NjBcZmktNzIwXGxpbjIx NjBccGFyXHBhcmRccGFy fQ== Biomarker Block(s) (test b7lipMQyEENhnGA9ZaBw code = 9841) BTOhb1mmc1JbfRRfoLMa HCbzkVFjguXnbu99yBO5 eA12JB1vBDTeIsN9BVId ugI2Mng4OIEdCOCzsARz X888d4vmf0dwecMqtUK5 oHbrDUDewmacYpU8WVak XIUrmmqdPWi9HDibHTFz oYM0FXFqcMPtX1SfFDWb CE9mjyu8HLE3BKojSUIh VfT5MLJrnMQaQNJoeZhp MKmcd692KVQ6NwTaAVBm iyOkmMxyhN3fVsBsWCIM MSwgQTRccGFyfQ== Disclaimer (test code = s1yzxJGmZHByxYUePeBi 9844) QBYcKKOam8guAGQusLQy ZzEwMzNcZnRuYmpcdWMx BVPrYgAua2bcx338nVSe y1qsUFBzFwB7hIOhNXZx uVOgA136AZNyVOvbv8an k7RvWAFwlUCzw1I2TXNS wwpmxJp4nBjhU67yi8M5 DxzpI6oeOXKxQIFgM3Yp DZ9iBSZwBga1NOL9IVG5 RYPmWPNfT3HoTC2hCQFt cSUxHDt0s0awzOxsITUt EHB1y0uyGByegoJuLW4v zw4epRq2m0frhfImLEOs PTMeoOYNQHIlJ1PoqDqg Sm3otDo2yGxxPpqgAJP2 Gbb7TW6aqg26fae8sGhp SVVumcgmUrL1IPbnZEZi owfgKNx8DJhtCBJlhCL6 PILwlRRsF3LeTTQwYQ3v esx8FTA6NOzuKXJsElF8 NDBcaGVhZGVyeTcyMFxm e930KWG2FlIlQG2jB9Df e8R2jN9odIQhTVIrrLAw CvFbHBOvax3hjEScQJyz f0DdHBW9vpL4jXRohXYq KOSqUF17Ocdjc3ZsQuuh VWI7LMNojlYry1Kcn2tm KdRvviHtM6jcE2XqBNPn HMKjIOExSlFtiqTrb4Hn r7UzsDNyhCm5f3ztXATa BXBppUnod8eqWOU1SYMe C2J4cIZxt2lhRKsqFVPo yBG9ezT1EQUoyNLjU5Ca zY8wOXWgLW2dmwa1c4wb QJZ9ZExeNYMrLpZ0bgK6 NDBcaGVhZGVyeTcyMFxm t126NKI8RaHbVYKhv1Ao B0ImwTnaM69ckWgrF73u HGTzfVqwbU5jjSndgP2y ZjBcZnMyNFxxbFxwbGFp mccyTMtkgdG0BXdxxqld HJOhJFtfV1cgOtJhWUZj pYknFZxxi8LlEMNxAQCp GxoykkQ9LNJTu63tHGJx g1FiDZLbrW3mtWKbTAvs hrPosXN9LXpaeuUtAnMm pfHbORRibK5fQISrRD5q LXFkleCaly6mhdGxPOBl RHQfY8AtspjcxKjfcwNr MNUkyp4hxeExQWG5DLSC YV8WNFFhJDZqr87wZJLf qViezY2ehIQxhgZeTCYy y0QldL1ivQEAOZOpH4eq KS7sZFwam0AmqQAoaNUr hEZ1ACZzo1KbEyHovsCy lJPxkHDuN2EkrTycB5qg ITVcLXMartNmpWKuq7Oy RCXdjQJ5mCEpQM8VYaEO i97fIFZwOFVCajKbIPEl yLbakNA7awR1sI8wHmND ZiBhcHBsaWNhYmxlLCBj w646jv4lfpU6OPKhLYXb riuho7KrRVLvGKXqbO44 SWVtJYErpo2skebirPFy zpCjC7Otrpd5bL0oJMPw YWluXGYxXGZzMjJcbGFu ZzEwMzNcaGljaFxmMVxk WhJxIDEdDAcuQ3wsUsBf ZnMyMlxwYXJ9 [facility] Interpretation 2021-10-26 14:09:59 Test Item Value Reference Range Interpretation Comments Materials Received (test k1qleHWuWAUbvPNeFaTs code = 9973) KYQkTEPse2ejWPNntKJw ZzEwMzNcZnRuYmpcdWMx ESFpUqPsz9ccy097nTNy o8urMVXpAkY9qJWuBEVs hEVsC849USSzXZtqo8ba s0UtLQXxwEEuk8W7HBVG jstpkFc2aLyoR40tn7E6 JmlyB7hlGEZuCBYlD4Qf CW5mQJNaYmm1MYU4QBO8 CCEmEIAkQ6NeKM5uTSMl hXUgKSf5z6quvBdhYXAb XWH6z0xxXEsfpfVrGM3k jg1maIx1h8ydebEoASZh MINekSAVTXReC6OdyYjw Fb9lbJa9cEoaGtrxGQS8 Byg5BE7jwc05unm6iGrp EAYjeiweWgW9IOyeCTEl bhdhEPs6AQllTNCtrIvn MFxtYXJncjcyMFxtYXJn nLR8WSWlxAIxF7FqVMAl UOdqNPPnjuw5DbUpBe8u nOTcfJhyDTcrp7yov5en zUReYvs3JGChGcPeUcel CMtzm3Dcl4uhRPUtxm6i FCB1uTBmxLfeh1V0qAVc LWBloKLkdeQfBLPojl63 mNZuzDTrcQCxcu4ormAb nJJxyVVgFUK9wLWxkzPv DXSsjHUzSOWcJX5abNXb FEVgeM6winyfCMOwFsPv egyoAGVadOmktfEuYq6j tZjvHWW6UIeqB8mncA2y BkL8LTveT9eoiL6hNBc6 KCpcyPP4PLHacD1xVU7h llbdg5smQpOcRC8epmtc f4daVxZiNH2pbcn1f1xy TOY8BIejVPMyOpF2mlM1 NDBcaGVhZGVyeTcyMFxm y407HPO7CiNwKWLuc6Sh C7ZyjIqjK14hoCcoK94m FUXozDkedJ0sbOvnjQ8q LcZxIrYiGYl2cv60BDw1 fycpaKxbCUr7mkVfWGDe JSV2GOCxgTTwSWKnP5m5 biOmVBTvKUK9SKGuaBOy YKAcY0z5cdFxRAY3AUf0 cnBhZGRmdDNcdHJwYWRk YjBcdHJwYWRkZmIzXHRy wSZbcMCebAKhgO3viByv ENOhlUXqxQ6kPMB8NUPy cmgzMjBcdHJoZHJcbHRy qg90QSQbbkDbzIVetNon zKFrOGE7SFEqBMWkZJXe LDF9YXFnYiHrfcRnTSac bGJyZHJiXGJyZHJzXGJy BZU2TLYcAiKjnyZfOXkn bGJyZHJsXGJyZHJzXGJy DNL8BQCgDjAeabMkVEjw bGJyZHJyXGJyZHJzXGJy GAL6MZAbKuRgqdXlGGiz bHBhZHQxMFxjbHBhZGZ0 C3vgfHSkCQVjUGnjpBDr JBItA2tkaTHwJAjlNFJb cGFkZmwzXGNscGFkYjBc O3zhZNRpPmCgY5LvqBu7 MDAwXGNsdmVydGFsdFxj dOSzMNS5VJStPZYiGMYb ABX3CITgQgNshzUxGFvw bGJyZHJiXGJyZHJzXGJy LPW9NDZvWrFzcmInZCuc bGJyZHJsXGJyZHJzXGJy JSZ7FXGsRiZkgqUmNCmm bGJyZHJyXGJyZHJzXGJy HII2OIPcZxAehhTzFHud bHBhZHQxMFxjbHBhZGZ0 E9ussBKrVWBnHCttdNKl JXGlC1gcpXDyFFloVGTi cGFkZmwzXGNscGFkYjBc U4hkXDFkBsDvF0SwdCc1 NjAwXGNsdmVydGFsdFxj uTBdLDV5ALFxUEItNSGq RPC9MZMgXnMgjkZlNDch bGJyZHJiXGJyZHJzXGJy NAK8ZOYzCdHvhlLrWHxc bGJyZHJsXGJyZHJzXGJy BFY6EJNeRuWlrxNiFYfb bGJyZHJyXGJyZHJzXGJy QDY6BBJcUcEmamGjJBtd bHBhZHQxMFxjbHBhZGZ0 U1obeBDyLGCmPVclgKUw VCXiU5hhkCExIPhdGSGh cGFkZmwzXGNscGFkYjBc C8drJQXsEwQmT3KiqEt0 JzCrEWPtkhGlcV93Xgzf y4KjCCMrRGS3EBacJBbw bFxwbGFpblxmMVxmczIw CYowbecbZFGeIQynR7pk JbTiTABnzPasXEasx3Nl XGYxXGNmMlxmczIwXGIg NSDfKJVlsN9uGxlpV2Wo kS1mGVxiZjohA8alHJVy p9XgzP4tVVevxMHhmvwt MVxmczIwXGxhbmcxMDMz FMplZ8czWwItREQajNtg MMzle3WfEAPdQEGnNtju pvWuTKo1dyCqHQGjbSwn oGSoUEisakKblOial7Gl joYsjSssIGGwRHe8euVf zahryMw5nUByjRfzLTDp iDyfhX4bEjHwJuGyMWud bGFpblxmMVxmczIwXGxh qterYGVuHFgkO7khJcNz LKRbcSygXTcec4PgXIFt EGHaPkjgyqMoFLPtV92a bGVjdGVkXHBsYWluXGYx XGZzMjBcbGFuZzEwMzNc aGljaFxmMVxkYmNoXGYx QUcjV1jfWbYaX3DaFMKw YkWudKPaE2fvT5AgwQgj YXJkXGludGJsXHNzcGFy GRV1uFLewiCmmIUqjRXn SNUeCUskXEU0wKWweikv qJUdwpglPOblfiT2QFBl YWluXGYxXGZzMjBcbGFu ZzEwMzNcaGljaFxmMVxk WvDcJMTfIUubH2psHbYc E4ZfXQGkEdFzAeIYDLAq aXZlZFxwbGFpblxmMVxm czIwXGxhbmcxMDMzXGhp Y6wcYtArLKDvxMiuSPna m1MgOLAyUIZeUbnvduUx MVx7qpNfCLStbItcnC56 Hicdxc50FSXcz2pvDVPm K4NokCSvXBTmcMYzBRmo MDhcdHJwYWRkZmwzXHRy cGFkZHIxMDhcdHJwYWRk ZnIzXHRycGFkZHQwXHRy lUIbALE0O9d6yjRhVKNw GUe2naEpEQJtKvQgtIEa BBL0RGs8FxytsjV9eAEv P9b8QgeoveVsDLwpbNGa py86QIIntfZpiVUngHuc lBRxRTT5FMRiBWCeIMMt TUN6EXToDkFqefQuWQss bGJyZHJiXGJyZHJzXGJy CRS5XSOzUjYhlyKnXFow bGJyZHJsXGJyZHJzXGJy UPT1AFOqOwAtliYiVSaz bGJyZHJyXGJyZHJzXGJy LBJ7XXJvMzGpjbKmUVup bHBhZHQxMFxjbHBhZGZ0 G8xfmQPwAVTdZPyuwIHj OKWsW1hkdHKsVNzzQOPl cGFkZmwzXGNscGFkYjBc P4fiLOYpGuGcX3NwjQm9 MDAwXGNsdmVydGFsdFxj hSMxNEE4UAHnRGEdRYNl OXL7UFXqPjUlkrOnIFyn bGJyZHJiXGJyZHJzXGJy IZK3NBEqUrMifdZvESve bGJyZHJsXGJyZHJzXGJy WJF4SFPzVoPcwtHjUSrh bGJyZHJyXGJyZHJzXGJy WEB4BLRmBbRiizSmDDyo bHBhZHQxMFxjbHBhZGZ0 O7ctwPJsGLHpHJkneOJo VEYgP8iunSOwQMqnXYSu cGFkZmwzXGNscGFkYjBc O9ehMCYrBoEiX6KqmWb5 NjAwXGNsdmVydGFsdFxj vEVyLFL5MXBnSHOwPDKv VLR3EVMbKxNzmaRqGXap bGJyZHJiXGJyZHJzXGJy WWE0GDOwMcHhqjAiTJce bGJyZHJsXGJyZHJzXGJy JDD8PUCtVlHtzoKrDUmm bGJyZHJyXGJyZHJzXGJy DBJ1OVVcRsXtzaOiWVwc bHBhZHQxMFxjbHBhZGZ0 E1bqpUNaFOQhAJcmrWVc XWLeW9hsbZWdDHoxDBBw cGFkZmwzXGNscGFkYjBc V8yuBOFxQgDsI1DqdMv6 VtZlQNXksjPykS61Sphv a3RlIMPcWTA0XRjkXHzr bFxwbGFpblxmMFxmczI0 XHBsYWluXGYxXGZzMjBc bGFuZzEwMzNcaGljaFxm FQjxUrUtRAJlEMmvG4ii MtQuP1HkIUVpPaNuUI1p AiShPBZ7UWQ5IMX3AIWS WKNvKWENC4HGKecoJGEP Z2QuzDeojL9vNyQhKwUr ZJxlTI5oGVTkX5sxnTAu VHRlECQuS7swXhWmuR7e aFxmMVxjZjJcZnMyMFxs dHJjaFxjZWxsXHBhcmRc wQ72Usejw3VzAFRlLUO5 MFxzMFxxbFxwbGFpblxm AOgzjpV5EZKwEPbpBGRn XGZzMjBcbGFuZzEwMzNc aGljaFxmMVxkYmNoXGYx WDebC1wcTuHvU5NuKUHs QeZkDB5oVs3xRYLvSYSx YWluXGYxXGZzMjBcbGFu ZzEwMzNcaGljaFxmMVxk BtSlTOErODimJ1xzYhYw I0WaFILpWxWmaMSpM1dx Y7SouTdvRZEkUKvdmILd EBSrgKEdFZN1uVEljfHu xDzzhEttzX3xNwQwNeCk NFxwbGFpblxmMVxmczIw MHhaerhtKQIrJKmhF9jt AtEwDWIlzSdqARird8Mq XGYxXGNmMlxmczIwIDUv FN7wHQBsAKPoEBhtBMTu XGZzMjBcbGFuZzEwMzNc aGljaFxmMVxkYmNoXGYx XPrxF2mdOaXpZ6IkLRXv LdOupFFoW6baX0ZbuZxw iuZnjGmki3kbjABqVTln f3PprtWypOjiRSUbOEDv XHBsYWluXGYwXGZzMjRc jKoloL7lPpWfWeIzBOkz UV9hINTqV3dkaJTgQBEb CGDhD7dyJrTdiM9ztMjh MVxmczIwXHBhcn0= Diagnosis (test code = s1jqfGZnKNAqsMI2CqRs 34) RCFjs3fnz4CtyPCjdUXh IUgavWZuvfUxgc35yTO4 wL20QR7eLOTgIsX3JJFe umI9Xra7KESrBBOvnFLw R654y9mot9cziqLwwTQ6 VZNsKNDmV4AnHS8jOMZo vKKvY03dbXOoNFM6HWHp BXKonBMtXGZcOKF2RQPj yVRnA1duZWLhLG7iddci ZKbdKHdyUMDvwNM4FRAo xFIlL4WaPEGbMBcyVSJr azo2FtCpHj7blPNojBiz MFxwYXJkXHBsYWluXGZz KwGtQ0RiKZ81mDKpEKWd AHEoPw8rIsK2VBzcVPQY RvczYSVWSM6GQ7WnHCDs PXMCYUCaa6lbWLH8SQMt q29kDG9uAn3fTEVkGXte cGFyXGNmMFxwYXJcbGk3 MjBcbGluNzIwIEEuIFJp V1c1PQOcLAYqpEY6sMTb mqCtzp7jyuIziV7ys7re XOAwVSO8WLasyXivPGyP IGZvciBFUiwgUFIsIEhl iwXjZWUvTGZdiT33ZfIn qsLFLPu9LKOaihiiAWPq lVqkEVCtSNgtlfL3PZWv TU6PDKGRKvUsSZSAWVBT NVEXOqMPQk0GEGrfQa1s G4YFQ5sCBWOJOKCVZtob JWBovOLdFN9QEFQLQxjK ZT7vV7QLBFNwGfEzEdRk THHaLyReFA4byVPwYCDh eeXOjWZawBN6PGAqJDrE OlxwYXJcdGFiIEVSIFBP R6rHMICZHLfqKQWvMOFi GrixuCMfDTvrQeI1VBpw qL5xZWQwHSMILA3GB2ON QHEWUAl1SCUuAKDudrAH TDKmFjGPSG5FE0LTESNV QFlsO00tZJLrFpbgqGRo PTwoKTQ4LA1DTPSDBBLA TFkgRUxFVkFURUQgKDI1 EMkudPEjQMpzBJQ2VMvq iY1rYJJpJJNyufdnqTFr NjBcZmktNzIwXGxpbjIx NjBccGFyXHBhcmRccGFy fQ== Biomarker Block(s) (test t8wnlFMdPHAyhDE8AqHc code = 9841) AVToo5umb6QksXUecQNf EDpiyMDkzxAxfo02dUH9 fP28YO7jKAMvOsW7PBZw fsC7Nnn4DXOfJJIknVPo D621h6mws9kaanJtwJY5 eNowKCZyiynaEcL1VLhy XWXoqvbvCPw2PIhmYTPa gQL6SREfgIExA9EgNTKy VV1pvwq6FSH7LUceNLXw SzN3HRVjfKOqILNmgHpg AMyfo775TIE3KqSaKKIm zfPeoSasfL4eMbVhIIGM MSwgQTRccGFyfQ== Disclaimer (test code = j2ossHZcFJCzgKQvZhDt 9844) IUSsVKWdt0juMWRqtYYc ZzEwMzNcZnRuYmpcdWMx WOKvJrNxo0jic783mAGm q2pwEPPcGrA3qLIyJEHh jJVdP496OYQzTStbc4oo d8LqSESmyBTdj7L9OGNN guguaVb2aUtuZ05xz5Y3 QxrrM5lpWPDpAFIfL2Al QC7eYQIdWed9VDZ0AQP0 MLAiDPIcA9NeFZ2zDEXw lAMnAHn2n6mwlOszVSZd VXG5p0rdNSywcmNdOL3t re1mgCn2o2eiyzKeWYXc NDPxbIPRUETnJ8KabRxx Po2eyAr8bPdxTlxlICA2 Hyy7EL1ywo91kjy8sNkp EARgalxmDuP9ZNhwISBl gebnXGu0JChnCZFrqSQ4 ZMXyjZGnM3UyKPQvLZ0j iqx3RAG7UGzkOPSeBeE7 NDBcaGVhZGVyeTcyMFxm g098DKL7TcKcSE9tM2Fi l4R0pG8xoYRhJNBsgFLs XyCwPEYigv0dzJBpECkt e0FdFRN8roU8uZHqgWCa RCJfJG27Motvu3ZiTvgq LOR6ZFCwylRbm7Lkv3lb OjUunnAtB0svE6HlCTYy EJClTHKgDqKycwZor4Aa n3KetORchEy7k7fpPPRg ODGbmXufk5viUQU2HRQz B4A6sPCar4gdGFhhCPHp kGQ8spZ4FTQxcZWpH2Bd uS6iXJPnXL3qdpp7j2nj DZE4ZYpaQSPgNvT5zbD6 NDBcaGVhZGVyeTcyMFxm k571VQQ6DwVmSOPys8Zu G2SwiStqW38zeAfoX32q SYEjaZqyuK1kcDpkrJ3u ZjBcZnMyNFxxbFxwbGFp fuefEQugyhG2DXonoqkx HJCtHKtaE1hnTeCiUMIx wEnlEUibn7XcFBGiZQGr AbzmwkS5WZQTx27oVLYl r1WsVVHnlT1ftEFeDHic vzEtiSP5RDfadlYuChTd gxUxXMTnzE5sEGMtDQ7s VOVlcsRwht2nboJlYBGw OCGkO1OzclsoxGvtudOr DWWkjb6mxeYmLXV7KJAT IO9QJDUhNWPwi43wILBv qEkojZ4aeZTcnoTnISJg e6PfqW5lcYTYAVWaK9zs LE7fTLtji6EydQEmgZDs dGE3KQHiv6PnCmEzygWa tLHwxSItY3AihWocC7gm DAQuAGHpozBprHOqp3Xc UMWujRX0rQQeIW0LNkTD m27sFGDgFNQJjhUiWLIq jMavqUH3brP8pA7qNuWE ZiBhcHBsaWNhYmxlLCBj u158xm3temS8PKImFLBc omoda7DzLIFfYCTriO76 QVPfUMCezl5hkpffwQUb daYiX8Flrbq5eY3lBSCa YWluXGYxXGZzMjJcbGFu ZzEwMzNcaGljaFxmMVxk TrUbCICpTKbdE4lgGpNf ZnMyMlxwYXJ9 [facility] 2019-03-18 21:08:21 Test Item Value [...] e have not been validated by [facility] MDRD study and should be interpreted wit [...] e have not been validated by [facility] MDRD study and should be interpreted wit h caution. eGFR R esult Interpretation: eGFR > or = 60 is in the Normal RangeeGF R < 60 may mean kid kylah diseaseeGFR < 1 5 may mean kidney failure Rang es recommended by the [employer], [email or web address] Comprehensive Metabolic [id number] 21:08:21 Test Item Value Reference Range Interpretation [...] A/G 1.4 ratio N Ratio) Comprehensive Metabolic [id number] 21:08:21 Test Item Value Reference Range Interpretation [...] the National [employer] Foundation, [email or web address] Lipid [id number] 21:08:21 Test Item Value Reference Range Interpretation Comments Cholesterol Total 172 mg/dL 0-200 RISK OF HE ART (test code = DISEASEPublishe d by Cholesterol Total) [place] [employer] Kerry lyte Optimal Borderl ine [...] calculation is LDL/HDL Ratio=L DL Calc/HDL Chol Automated [id number] 21:05:07 Test Item Value Reference Range Interpretation Comments Neutro Auto (test code = Neutro 55.7 % 36.0-70.0 Auto) Lymph Auto (test code = Lymph Auto) 33.7 % 12.0-44.0 Waldo Auto (test code = Waldo Auto) 7.2 % 0.0-11.0 Eos, Auto (test code = Eos, Auto) 2.6 % 0.0-7.0 Basophil Auto (test code = Basophil 0.6 % 0.0-2.0 Auto) Neutro Absolute (test code = Neutro 2.8 x10 1.6-7.4 Absolute) Lymph Absolute (test code = Lymph 1.69 x10 .50-4.60 Absolute) Waldo Absolute (test code = Waldo .36 x10 .00-1.20 Absolute) Eos Absolute (test code = Eos 0.13 x10 0.00-0.74 Absolute) Baso Absolute (test code = Baso 0.03 x10 0.00-0.21 Absolute) IG [id number] 21:05:07 Test Item Value Reference Range Interpretation Comments IG (test code = IG) 0.2 % 0.0-5.0 IG Abs (test code = IG Abs) 0 x10 N Complete Blood Count with [id number] 21:05:06 Test Item Value Reference Range Interpretation [...]
[2023-05-02 17:48] LABS: Specific Gravity 1.019 (1.005-1.030); Urine Bacteria None Seen /HPF (<20); Urine Bilirubin NEGATIVE (Negative); Urine Blood Negative (Negative); Urine Clarity Clear (Clear); Urine Color Light-Yellow (Yellow); Urine Crystals Unidentified Few /HPF (None Seen); Urine Glucose NEGATIVE (Negative); Urine Mucus Slight /HPF (None Seen); Urine Protein NEGATIVE (Negative); Urine RBC <5 /HPF (None Seen); Urine Urobilinogen Normal (Normal)
[2023-05-02 17:52] LABS: Hematocrit 38.8 % (36.0-45.0); Lymphocytes % 24.2 % (15.3-44.8); MCV 104.7 fL (80-100); MPV 6.8 fL (7.6-11.3); Platelets 170 thou/uL (152-406); RBC Red Blood Cell Count 3.71 M/uL (3.86-4.86)
[2023-05-02 18:05] LABS: Albumin 3.5 g/dL (3.4-5.0); Bilirubin Total 0.5 mg/dL (0.2-1.0); Potassium 3.6 mEq/L (3.5-5.1); Protein, Total 7.6 g/dL (6.4-8.2)
[2023-05-02] MEDS ORDERED: MORPHINE 4 MG/ML SYR ONE (18:54)
[2023-05-02] MEDS ORDERED: NA CHLORIDE 0.9% 1,000 ML ONE (18:54)
[2023-05-02] MEDS ORDERED: ONDANSETRON 4 MG/2 ML VIAL ONE (18:54)
--- NOTE | 2023-05-02 19:50 | RAD REPORT ---
EXAM DESCRIPTION: CT - Abdomen Pelvis W Contrast - 05/02/2023 7:15 pm CLINICAL HISTORY: RLQ;Abd pain COMPARISON: No comparisons TECHNIQUE: Thin cut axial CT imaging of the abdomen and pelvis was performed following intravenous a dministration of 100 mL Isovue 300. Multiplanar reformats were generated and reviewed. All CT scans are performed using dose optimization technique as appropriate and may include automated exposure control or mA/KV adjustment according to patient size. FINDINGS: No suspicious findings in the lung bases. The liver, spleen, adrenal glands, and pancreas show no suspicious findings. Gallbladder and biliary tree are also without suspicious finding. Symmetric renal function is seen with no hydronephrosis or suspicious renal mass. No dilated bowel loops or bowel wall thickening. Ovoid homogeneous density near the ileocecal junctio n, could represent fluid within the cecal lumen size nonspecific. No free air, free fluid or inflamma tory stranding. No hernia, mass or bulky lymphadenopathy. The urinary bladder is without significant finding. No suspicious bony findings. Bilateral hip arthroplasties resultant dense streak artifact limits eval uation of structures in the pelvis. Asymmetric densities in the central right breast with overlying skin thickening and irregularity. IMPRESSION: Asymmetric densities in the central right breast with overlying skin thickening. This is nonspecific. Etiologies could include infectious/inflammatory mastitis or underlying malignancy. Ple ase correlate clinically, and consider additional diagnostic imaging evaluation of the breast. No acute intra-abdominal process. Nonspecific area of homogeneous near fluid density within the cecal lumen nonspecific common could represent fluid or a polyp. Follow-up CT in 1-2 months utilizing oral contrast would be helpful for additional evaluation.
--- NOTE | 2023-05-02 20:13 | ER ---
Nurse's Notes [facility] Name: Kate Brice Age: 67 yrs Sex: Female : 1955 Arrival Date: 05/02/2023 Time: 15:00 Bed 14 Private MD: Diagnosis: Lower abdominal pain, unspecified Presentation: 05/02 15:38 Coronavirus screen: Vaccine status: Patient reports receiving the 2nd dose of the covid kd3 vaccine. Ebola Screen: No symptoms or risks identified at this time. Initial Sepsis Screen: Does the patient meet any 2 criteria? No. Patient's initial sepsis screen is negative. Does the patient have a suspected source of infection? No. Patient's initial sepsis screen is negative. Risk Assessment: Do you want to hurt yourself or someone else? Patient reports no desire to harm self or others. Onset of symptoms was May 02, 2023. 15:38 Method Of Arrival: Ambulatory kd3 15:38 Acuity: RACQUEL 3 kd3 15:39 Chief complaint: Patient states: I have been having the pain on my right side for about kd3 3 days. I can hardly walk. It got better yesterday but then this morning it got worse. I had a bowl movement yesterday and it was normal. The pain radiates into my lower back. Triage Assessment: 15:38 General: Appears uncomfortable, Behavior is calm, cooperative. Pain: Complains of pain kd3 in left lower quadrant. GI: Reports lower abdominal pain. Historical: - Allergies: 15:38 NKDA; kd3 - PMHx: 15:38 Hypertension; breast cancer; Arthritis; kd3 - PSHx: 15:38 breast- removed 19 lymphnodes; hysterectomy; hip replacement; knee replacement; kd3 - Immunization history:: Adult Immunizations up to date. - Social history:: Smoking status: Patient denies any tobacco usage or history of. Screenin:00 [facility] ED Fall Risk Assessment (Adult) Score/Fall Risk Level 0 - 2 = Low Risk. Abuse eh3 screen: Denies threats or abuse. Denies injuries from another. Nutritional screening: No deficits noted. Tuberculosis screening: No symptoms or risk factors identified. Assessment: 19:00 General: Appears in no apparent distress. uncomfortable, Behavior is calm, cooperative, eh3 appropriate for age. Pain: Complains of pain in right lower quadrant and left lower quadrant. Neuro: Level of Consciousness is awake, alert, obeys commands, Oriented to person, place, time, situation. Cardiovascular: Capillary refill < 3 seconds Patient's skin is warm and dry. Respiratory: Airway is patent Respiratory effort is even, unlabored, Respiratory pattern is regular, symmetrical. GI: Abdomen is round non-distended, Bowel sounds present X 4 quads. Abd is soft X 4 quads Abdomen is tender to palpation in right lower quadrant and left lower quadrant. Derm: Skin is pink, warm \T\ dry. Musculoskeletal: Circulation, motion, and sensation intact. 20:00 Reassessment: Patient appears in no apparent distress at this time. Patient and/or eh3 family updated on plan of care and expected duration. Pain level reassessed. Patient is alert, oriented x 3, equal unlabored respirations, skin warm/dry/pink. Vital Signs: 15:36 Pulse 54; Resp 16; Temp 99.2(O); Pulse Ox 99% ; Weight 95.71 kg; Height 5 ft. 7 in. ; kd3 15:39 BP 115 / 69; kd3 19:30 BP 127 / 73; Pulse 53; Resp 16; Pulse Ox 98% on R/A; eh3 20:30 BP 125 / 73; Pulse 50; Resp 16; Pulse Ox 97% on R/A; eh3 15:36 Body Mass Index 33.05 (95.71 kg, 170.18 cm) kd3 ED Course: 15:02 Patient arrived in ED. mr 15:38 Triage completed. kd3 15:38 Arm band placed on right wrist. kd3 15:46 Jed Raya PA is PHCP. jr8 15:46 Gregoria Trevino MD is Attending Physician. jr8 18:53 Christine Limon, ENRIKE is Primary Nurse. iw 19:00 Patient has correct armband on for positive identification. Bed in low position. Call 3 light in reach. Provided Education on: use of call jauregui. Pulse ox on. NIBP on. 19:10 PHCP role handed off by Jed Raya PA jr8 19:10 Cecil Dawkins PA is PHCP. jr8 19:17 CT Abd/Pelvis - IV Contrast Only In Process Unspecified. EDMS 19:59 Guillermina Smith, RN is Primary Nurse. 3 21:10 No provider procedures requiring assistance completed. IV discontinued, intact, eh3 bleeding controlled, No redness/swelling at site. Pressure dressing applied. Administered Medications: 18:53 Not Given (Patient Refused): ondansetron 4 mg IVP once; over 2 minutes iw 18:54 Not Given (Patient Refused): morphineor iv 4 mg IVP once over 4 mins iw 18:54 Drug: NS 0.9% IV 1000 ml IV at 1 bolus Per protocol; 1000 mL bolus Route: IV; Rate: 1 iw bolus; Site: left antecubital; 20:30 Follow up: IV Status: Completed infusion; IV Intake: 1000ml eh3 21:05 Drug: Ketorolac IVP 15 mg IVP once Route: IVP; Site: left antecubital; 3 21:20 Follow up: Response: No adverse reaction 3 Medication: 19:00 VIS not applicable for this client. eh3 Intake: 20:30 IV: 1000ml; Total: 1000ml. 3 Outcome: 20:13 Discharge ordered by . cp 21:20 Discharged to home ambulatory, with family, 3 21:20 Condition: stable 21:20 Discharge instructions given to patient, Instructed on discharge instructions, follow up and referral plans. medication usage, Demonstrated understanding of instructions, follow-up care, medications, Prescriptions given X 1, 21:21 Patient left the ED. 3 Signatures: Dispatcher [employer] Erika March, Reg Reg mr Christine Limon, RN RN Jed Alcala PA PA jr8 Page, Corey, PA PA cp Doucette, Kyli, RN RN kd3 Guillermina Smith, RN RN 3
--- NOTE | 2023-05-02 20:13 | EDPHYS ---
Physician Documentation [facility] Name: Kate Brice Age: 67 yrs Sex: Female : 1955 Arrival Date: 05/02/2023 Time: 15:00 Bed 14 Private MD: ED Physician Gregoria Trevino HPI: 05/02 17:43 This 67 yrs old Black Female presents to ER via Ambulatory with complaints of Abdominal jr8 Pain. 17:43 The patient presents with abdominal pain right lower quadrant. Onset: The jr8 symptoms/episode began/occurred acutely, 3 day(s) ago. The symptoms do not radiate. Associated signs and symptoms: none. The symptoms are described as stabbing. Severity of pain: At its worst the pain was moderate in the emergency department the pain is unchanged. The patient has not experienced similar symptoms in the past. The patient has not recently seen a physician. Historical: - Allergies: 15:38 NKDA; kd3 - PMHx: 15:38 Hypertension; breast cancer; Arthritis; kd3 - PSHx: 15:38 breast- removed 19 lymphnodes; hysterectomy; hip replacement; knee replacement; kd3 - Immunization history:: Adult Immunizations up to date. - Social history:: Smoking status: Patient denies any tobacco usage or history of. ROS: 17:43 Eyes: Negative for injury, pain, redness, and discharge, ENT: Negative for injury, jr8 pain, and discharge, Neck: Negative for injury, pain, and swelling, Cardiovascular: Negative for chest pain, palpitations, and edema, Respiratory: Negative for shortness of breath, cough, wheezing, and pleuritic chest pain, Back: Negative for injury and pain, MS/Extremity: Negative for injury and deformity, Skin: Negative for injury, rash, and discoloration, Neuro: Negative for headache, weakness, numbness, tingling, and seizure, 17:43 Abdomen/GI: Positive for abdominal pain, Negative for nausea, vomiting, and diarrhea, Exam: 17:43 Constitutional: This is a well developed, well nourished patient who is awake, alert, jr8 and in no acute distress. Cardiovascular: Regular rate and rhythm with a normal S1 and S2. No gallops, murmurs, or rubs. Normal PMI, no JVD. No pulse deficits. Respiratory: Lungs have equal breath sounds bilaterally, clear to auscultation and percussion. No rales, rhonchi or wheezes noted. No increased work of breathing, no retractions or nasal flaring. Back: No spinal tenderness. No costovertebral tenderness. Full range of motion. Skin: Warm, dry with normal turgor. Normal color with no rashes, no lesions, and no evidence of cellulitis. MS/ Extremity: Pulses equal, no cyanosis. Neurovascular intact. Full, normal range of motion. Neuro: Awake and alert, GCS 15, oriented to person, place, time, and situation. Cranial nerves II-XII grossly intact. Motor strength 5/5 in all extremities. Sensory grossly intact. Cerebellar exam normal. Normal gait. 17:43 Abdomen/GI: Inspection: abdomen appears normal, Bowel sounds: active, all quadrants, Palpation: moderate abdominal tenderness, in the right lower quadrant, rebound tenderness, is appreciated in the right lower quadrant, voluntary guarding, is not appreciated, involuntary guarding, is not appreciated, no appreciated organomegaly, Indicators: McBurney's point is tender, Baron's sign is negative, Vital Signs: 15:36 Pulse 54; Resp 16; Temp 99.2(O); Pulse Ox 99% ; Weight 95.71 kg; Height 5 ft. 7 in. ; kd3 15:39 BP 115 / 69; kd3 19:30 BP 127 / 73; Pulse 53; Resp 16; Pulse Ox 98% on R/A; eh3 20:30 BP 125 / 73; Pulse 50; Resp 16; Pulse Ox 97% on R/A; eh3 15:36 Body Mass Index 33.05 (95.71 kg, 170.18 cm) kd3 MDM: 15:46 Patient medically screened. 19:09 Data reviewed: vital signs, nurses notes, lab test result(s). Transition of care: After jr8 a detail discussion of the patient's case, care is transferred to Cecil RENNER. 05/02 15:46 Order name: CBC with Diff; Complete Time: 18:14 jr8 05/02 20:00 Interpretation: Normal except: WBC 4.00; RBC 3.71; MCV 104.7; MCH 35.9; MPV 6.8. cp 05/02 15:46 Order name: CMP; Complete Time: 18:14 jr8 05/02 20:00 Interpretation: Normal except: CRE 1.36; GFR 43; GLOB 4.1; A/G 0.9; AST 13. cp 05/02 15:46 Order name: Lipase; Complete Time: 18:14 8 05/02 15:46 Order name: Urinalysis w/ reflexes; Complete Time: 17:51 8 05/02 16:49 Order name: CT Abd/Pelvis - IV Contrast Only; Complete Time: 19:58 05/02 15:46 Order name: IV Saline Lock; Complete Time: 18:33 8 05/02 15:46 Order name: Labs collected and sent; Complete Time: 18:33 Administered Medications: 18:53 Not Given (Patient Refused): ondansetron 4 mg IVP once; over 2 minutes iw 18:54 Not Given (Patient Refused): morphineor iv 4 mg IVP once over 4 mins iw 18:54 Drug: NS 0.9% IV 1000 ml IV at 1 bolus Per protocol; 1000 mL bolus Route: IV; Rate: 1 iw bolus; Site: left antecubital; 20:30 Follow up: IV Status: Completed infusion; IV Intake: 1000ml 3 21:05 Drug: Ketorolac IVP 15 mg IVP once Route: IVP; Site: left antecubital; 3 21:20 Follow up: Response: No adverse reaction 3 Disposition Summary: 05/02/23 20:13 Discharge Ordered Notes: Location: Home cp Problem: new cp Symptoms: have improved cp Condition: Stable cp Diagnosis - Lower abdominal pain, unspecified cp Followup: cp - With: Private Physician - When: 2 - 3 days - Reason: Recheck today's complaints Discharge Instructions: - Discharge Summary Sheet cp - Abdominal Pain, Adult cp Forms: - Medication Reconciliation Form cp - Thank You Letter cp - Antibiotic Education cp - Prescription Opioid Use cp - Patient Portal Instructions cp - Leadership Thank You Letter cp Prescriptions: - Ibuprofen 800 mg Oral Tablet - take 1 tablet ORAL route every 8 hours As needed take with food; 30 tablet; cp Refills: 0, Product Selection Permitted Signatures: Dispatcher [employer] Christine Castillo RN RN iw Roszak, Josh, PA PA jr8 Cecil Dawkins PA PA cp Angie Charlton RN RN 3 Guillermina Smith RN RN 3 Corrections: (The following items were deleted from the chart) 20:00 20:00 Normal except: CRE 1.36; GFR 43; GLOB 4.1; A/G 0.9. cp cp
[2023-05-02] MEDS ORDERED: KETOROLAC 30 MG/ML INJ ONE (21:24)
[2023-05-02 21:28] VITALS: TEMP 99.2
[2023-05-02 21:31] VITALS: BP 125/73; O2SAT 97
== END 2023-05-02 21:21 | disposition home or self-care (01) ==
LOC: ER 15:00
DX: R10.31 Right lower quadrant pain (principal); I10 Essential (primary) hypertension
CPT/HCPCS: 96361; 85025; 81001; 36415; 83690; 80053; 74177; 96374; 99284; Q9967; J2405; J7030

== ENCOUNTER → 2024-03-04 | Day surgery (SDC) | payer OTHER ==
--- NOTE | 2024-03-04 11:02 | RAD REPORT ---
EXAM DESCRIPTION: US - Thyroid Para Parotid Gland - 03/04/2024 10:41 am CLINICAL HISTORY: E04.1 COMPARISON: Soft Tissue Neck W/Contr dated 04/24/2023 FINDINGS: The patient was referred for ultrasound-guided FNA thyroid nodule. Pre-procedure ultrasoun d performed by radiologist demonstrates a vague area of nodularity inferior aspect of the isthmus. Th is measures approximately 18 x 16 x 13 mm. The deep nearly substernal position of the nodule made ultrasound-guided FNA not technically feasible . The features of the nodule favor benign etiology. Recommend follow-up ultrasound monitoring in 6-12 m onths. IMPRESSION: Deep nearly substernal positioned 18 mm nodule is seen extending off the inferior aspect of the isthmus. Position of this nodule made ultrasound-guided FNA not technically feasible. Recommend follow-up ultrasound monitoring in 6-12 months.
== END ==
LOC: FNA 09:19
PROVIDERS: ATTEND Otolaryngology Facial Plastic Surgery
DX: E04.1 Nontoxic single thyroid nodule (principal); Z53.8 Procedure and treatment not carried out for other reasons
CPT/HCPCS: 76536

== ENCOUNTER 2024-10-09 19:19 | Emergency (ER) | payer OTHER ==
--- OUTSIDE RECORDS SUMMARY | 2024-10-09 19:23 | XMS REPORT | Clinical Summary ---
Author Name Unknown Organization [facility] Address [address] [place] [address] Care Team Providers Care Health Information Provider Name Role Phone Kasi Triplett MD Unavailable Larissa Fermin MD Unavailable [phone] Madeleine Plaza MD Primary Care Prov ider Adam Melendez MD Unavailable Misty Cardoza MD Unavailable Yoav Valdez MD Unavailable [phone] Danisha Arias MD Unavailable More Dickens MD Unavailable [phone] Allergies Active Allergy Reactions Criticality Noted Date Comments Lidocaine 10/27/2021 Makes hands itch few days after injection Paclitaxel Other (See Comments) 11/14/2021 CO: coughing flushing, feeling tightening of breath & feeling hot. Infusion stopped. Diphenhydramine 50mg, famotidine 40mg, & hydrocortisone 100mg given. After resolution of symptoms infusion rechallenged @ 1/2 rate and finished infusion at full rate w/o further complications Medications * This document contains information received from the source organization and may not represent a complete record from that organization. aspirin 81 mg chewable tablet Chew and swallow 1 tablet (81 mg) by mouth daily. Active omega-3 fatty acids/fish oil (fish oil-omega-3 fatty acids) 300-1,000 mg capsule Take 1 capsule (1,000 mg) by mouth. Active cholecalciferol, vitamin D3, 100 mcg (4,000 unit) cap Take 1 capsule by mouth daily. Active losartan-hydroch lorothiazide (HYZAAR) 100-25 mg per tablet Take 1 tablet by mouth daily. Active atorvastatin (LIPITOR) 20 mg tablet Take 1 tablet (20 mg) by mouth at bedtime. 03/01/20 21 Active cyanocobalamin, vitamin B-12, (VITAMIN B-12 ORAL) Take by mouth. Activ e acetaminophen (TylenoL) 325 mg tabletIndication s:Neoplasm of breast regional lymph node staging category N1: 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, II axillary lymph node(s) Take 2 tablets (650 mg) by mouth every 6 (six) hours as needed for mild pain or moderate pain. 20 tablet 2 1:57 PM BSS SOLUTION ARCHITECT 05/24/20 22 Active abemaciclib (Verzenio) 100 mg tabletIndication s:Infiltrating ductal carcinoma of central portion of right female breast Take 1 tablet (100 mg) by mouth twice daily. 56 tablet 4 10/25/19 23 Active abemaciclib (Verzenio) 100 mg tabletIndication s:Infiltrating ductal carcinoma of central portion of right female breast Take 1 tablet (100 mg) by mouth twice daily. 56 tablet 4 04/10/20 23 Active ibuprofen (ADVIL,MOTRIN) 200 mg tablet Take 1 tablet (200 mg) by mouth every 8 (eight) hours as needed for moderate pain. Active hydroxyzine HCl (ATARAX) 25 mg tabletIndication s:Infiltrating duct carcinoma of right female breast Take 1 tablet (25 mg) by mouth every 6 (six) hours as needed for itching. 90 tablet 6 07/24/19 24 Active montelukast (SINGULAIR) 10 mg tablet Take 1 tablet (10 mg) by mouth daily. 08/20/19 24 Active letrozole (Femara) 2.5 mg tabletIndication s:Infiltrating ductal carcinoma of central portion of right female breast Take 1 tablet (2.5 mg) by mouth daily. 90 tablet 3 12/11/19 24 Active abemaciclib (Verzenio) 100 mg tabletIndication s:Infiltrating ductal carcinoma of central portion of right female breast Take 1 tablet (100 mg) by mouth twice daily. 56 tablet 3 01/08/20 24 Active nystatin (Nystop) 100,000 units/g powderIndication s:Infiltrating ductal carcinoma of central portion of right female breast Apply topically to affected area(s) twice daily. 60 g 02/25/20 24 Active abemaciclib (VERZENIO) 100 mg tabletIndication s:Infiltrating duct carcinoma of right female breast Take 1 tablet (100 mg) by mouth twice daily. 56 tablet 6 06/03/20 24 Active ranolazine (RANEXA) 500 mg 12 hr tablet Take 1 tablet (500 mg) by mouth twice daily. 09/07/19 25 Active nitroglycerin (NITROSTAT) 0.[address] 0.4 mg under the tongue. 04/14/20 21 024 Discontinu ed(Therapy completed) ondansetron (ZOFRAN) 8 mg tabletIndication s:Infiltrating duct carcinoma of right female breast Take 1 tablet (8 mg) by mouth every 12 (twelve) hours as needed for nausea or vomiting. Take scheduled for three days after chemotherapy then, PRN. 30 tablet 2 02/12/20 22 024 Discontinu ed(Therapy completed) abemaciclib (Verzenio) 100 mg tabletIndication s:Infiltrating ductal carcinoma of central portion of right female breast Take 1 tablet (100 mg) by mouth twice daily. 56 tablet 3 10/24/19 23 024 Discontinu ed(Reorder ) betamethasone dipropionate (DIPROSONE,DEL-B ETA) 0.05 % cream Apply topically to affected area(s) daily. 07/17/19 24 024 Discontinu ed(Therapy completed) letrozole (Femara) 2.5 mg tabletIndication s:Infiltrating ductal carcinoma of central portion of right female breast Take 1 tablet (2.5 mg) by mouth daily. 90 tablet 3 09/09/19 24 024 Discontinu ed(Reorder ) potassium chloride (K-DUR,KLOR-CON M) 20 mEq tablet Take 1 tablet (20 mEq) by mouth daily. 04/28/20 24 025 Active Problems Patient Care Coordination No te Formatting of this note migh t be different from the original. 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, II axillary lymph node(s) 02/14/2022 Infiltrating ductal carcinom a of central portion of right female breast 10/25/2021 Cancer Staging:Clinical stage from 10/26/2021:Stage IIB(cT2, cN1(f), cM0, G2, ER+, [place]-, HER2-) - Unsigned Pathologic stage from 05/24/2022:No Stage Recommended(ypT2, pN1a, cM0, GX, ER+, [place]-, HER2-) - Unsigned Encounters Date Type Department Care Team Description 10/07/2024 2:20 PM CDT Follow-Up MD [facility] in [place] - Breast Medical Oncology [address] [place] [address] Danisha Arias MD Infiltrating duct carcinoma of right breast (Primary Dx) 10/07/2024 Travel 07/29/2024 10:40 AM BSS SOLUTION ARCHITECT Follow-Up MD [facility] in [place] - Breast Medical Oncology [address] [place] [address] Danisha Arias MD Infiltrating duct carcinoma of right female breast 07/29/2024 Travel 07/21/2024 10:00 AM BSS SOLUTION ARCHITECT Ancillary Procedure MD Jamin Paz [address] [address] Risa Trevino PA Infiltrating duct carcinoma of right female breast 07/21/2024 9:00 AM BSS SOLUTION ARCHITECT Ancillary Procedure MD Jamin Pza [address] [address] Risa Trevino, ZURDO Infiltrating duct carcinoma of right female breast 07/21/2024 8:00 AM BSS SOLUTION ARCHITECT Ancillary Procedure MD Jamin Norman[address] [address] Joe Alberto APRN Estrogen receptor positive status (ER+) 07/21/2024 Travel 07/16/2024 Orders Only MD [facility] in [place] - [facility] On[facility] [address] [place] [address] [address] [place] [address] Joe Alberto APRN Estrogen receptor positive status (ER+) (Primary Dx) 07/01/2024 11:20 AM BSS SOLUTION ARCHITECT Follow-Up MD [facility] in [place] - Breast [facility] Oncology [address] [place] [address] Danisha Arias MD Infiltrating duct carcinoma of right female breast (Primary Dx) 07/01/2024 Travel 06/02/2024 11:30 AM BSS SOLUTION ARCHITECT Follow-Up MD [facility] in [address] [address] Danisha Arias MD John, Jaimy, APRN Infiltrating duct carcinoma of right female breast 06/02/2024 Travel 05/13/2024 Telephone [facility] [address] [place] [address] Main [address], [address] [place] [address] Nazia Smith APRN,ZULLY 05/07/2024 12:30 PM BSS SOLUTION ARCHITECT Ancillary Procedure MD [facility] [address] [address] Nazia Smith APRN,ZULLY Thyroid nodule 05/05/2024 11:40 AM BSS SOLUTION ARCHITECT Follow-Up MD [facility] in [place] - [facility] On[facility] [address] [place] [address] Danisha Arias MD Infiltrating duct carcinoma of right female breast 05/05/2024 Travel 04/15/2024 1:00 PM CDT Consult [facility] [address] [place] [address] [address] B[address], [address]th [place] [address] More Dickens MD Thyroid nodule (Primary Dx); Infiltrating duct carcinoma of right female breast 04/15/2024 Travel 04/14/2024 Refill MD [facility] in [place] - [facility] Oncology [address] [place] [address] 200 [place] [address] Danisha Arias MD Infiltrating duct carcinoma of right female breast 04/07/2024 9:20 AM CDT Follow-Up MD [facility] in [facility] Medical Oncology [address] [place] [address] 200 [place] [address] Danisha Arias MD Infiltrating duct carcinoma of right female breast (Primary Dx) 04/07/2024 Travel 02/25/2024 1:30 PM CDT Follow-Up MD [facility] in [facility] Oncology [address] [place] [address] 200 [place] [address] Danisha Arias MD John, Jaimy, APRN Infiltrating ductal carcinoma of central portion of right female breast (Primary Dx) 02/25/2024 12:30 PM CDT Follow-Up MD [facility] in [place] - Breast Surgery Oncology [address] [place] [address] Madeleine Plaza MD Herrera-Vazquez, Daisy, PA Infiltrating ductal carcinoma of central portion of right female breast 02/25/2024 Travel 02/12/2024 Orders Only MD [facility] in [facility] Medical Oncology [address] [place] [address] Risa Trevino PA Infiltrating ductal carcinoma of central portion of right female breast (Primary Dx) 01/30/2024 11:20 AM CDT Ancillary Procedure [facility] in [place] [address], [address] [address] Lynda Barlow APRN Infiltrating ductal carcinoma of central portion of right female breast 01/30/2024 10:30 AM CDT Ancillary Procedure [facility] in [place] [address], [address] [address] Chelsie Carlisle PA Infiltrating ductal carcinoma of central portion of right female breast 01/24/2024 Documentation Diagnostic Imaging in [place] [address], [address] [address] CuadraWendie lew Kim, RT 01/08/2024 11:40 AM CDT Follow-Up MD [facility] in [facility] Oncology [address] [place] [address] Danisha Arias MD Infiltrating ductal carcinoma of central portion of right female breast 01/08/2024 Travel 12/11/2023 3:00 PM CDT Follow-Up MD [facility] in [address] [address] Gil Edwards APRN Infiltrating ductal carcinoma of central portion of right female breast 12/11/2023 Travel 11/14/2023 Orders Only MD [facility] in [address] [address] Gil Edwards APRN Infiltrating ductal carcinoma of central portion of right female breast (Primary Dx) 11/12/2023 1:00 PM CDT Follow-Up MD [facility] in [address] [address] Danisha Arias MD John, Jaimy, APRN Infiltrating ductal carcinoma of central portion of right female breast 11/12/2023 Travel 11/12/2023 Refill MD [facility] in [facility] Oncology [address] [place] [address] Danisha Arias MD 10/16/2023 3:00 PM CDT Follow-Up MD [facility] in [address] [address] Danisha Arias MD Stephen, Stella, APRN Infiltrating ductal carcinoma of central portion of right female breast (Primary Dx) 10/16/2023 Travel after 10/10/2023 Surgical History Surgery Date Site/Laterality Comments HYSTERECTOMY TOTAL HIP ARTHROPLASTY Bilateral TOTAL KNEE ARTHROPLASTY Right [place] MASTECTOMY PARTIAL 05/24/2022 Breast/Right Procedure: SEED LOC; SEGMENTAL MASTECTOMY; Surgeon: Madeleine Plaza MD; Location: MAIN OR; Service: BREAST [place] BX/EXC LYMPH NODE OPEN DE EP AXILLARY NODE 05/24/2022 Axilla/Right Procedure: TARGETED AXILLARY NODE DISSECTION; Surgeon: Madeleine Plaza MD; Location: MAIN OR; Service: BREAST [place] AXILLARY LYMPHADENECTOMY COMPLETE 05/24/2022 Axilla/Right Procedure: AXILLARY LYMPHADENECTOMY; Surgeon: Madeleine Plaza MD; Location: MAIN OR; Service: BREAST [place] INTRAOP SENTINEL LYMPH NO DE ID W/DYE INJECTION 05/24/2022 Breast/Right Procedure: INTRAOPERATIVE LYMPHATIC MAPPING; Surgeon: Madeleine Plaza MD; Location: MAIN OR; Service: BREAST [place] RMVL BRIANA CTR VAD W/SUBQ PORT/MELT HOUSE CENTRIFUGAL OPERATOR CTR/PRPH INSJ 05/24/2022 Chest/Left Procedure: PORT-A-CATH REMOVAL; Surgeon: Madeleine Plaza MD; Location: MAIN OR; Service: BREAST [place] REPAIR COMPLEX TRUNK 1.1-2.5 CM 05/24/2022 Breast/Right Procedure: COMPLEX REPAIR OF TRUNK; Surgeon: Yoav Valdez MD; Location: MAIN OR; Service: PLS - PLASTIC SURGERY BREAST BIOPSY 10/03/2021 Right IDC BIOPSY OF DEEP AXILLARY LYMP H NODE 10/03/2021 Right METASTATIC CARCINOMA CONSISTENT WITH BREAST PRIMARY Medical History Medical History Date Comments Hypertension Coronary artery disease due to calcified coronar y lesion Osteoarthritis Hyperlipidemia Bradycardia Infiltrating duct carcinoma of breast 10/03/2021 IDC Personal history of chemo 11/14/2021 History of radiation therapy to breast area 2021 Right breast Family History Medical History Relation Name Comments No Known Problems Maternal Cousin Cervical cancer Sister Colon cancer Sister Relation Name Status Comments Maternal Cousin Sister Social History Tobacco Use Types Packs/Day Years Used Date Smoking Tobacco: Never Smokeless Tobacco: Never Tobacco Cessation:Counseling Given: Not Answered Alcohol Use Standard Drinks/Week Comments Never 0 (1 standard drink = 0.6 oz pur e alcohol) Comments No Sex and Gender Information Value Date Recorded Sex Assigned at Not on file Legal Sex Female 3:23 PM CDT Gender Identity Not on file Sexual Orientation Not on file Obstetrics History Para Term AB IAB SAB Ectopic Multiple Livin g Live Births 2 2 2 Date Outcome GA Total Labor Labor/2nd/3rd Weight Sex Type Anes PTL Sakshi A1 A5 Name Clin Term Term Comments Parity: 21 yo Menarche: 15 yo BCP none HRT: none Menopause: 40's Last Filed Vital Signs Vital Sign Reading Time Taken Comments Blood Pressure 126/84 10/07/2024 1:59 PM CDT Pulse 52 10/07/2024 1:59 PM CDT Temperature 36.4 °C (97.5 °F) 10/07/2024 1:59 PM CD T Respiratory Rate 18 10/07/2024 1:59 PM CDT Oxygen Saturation 96% 04/15/2024 1:16 PM CDT Inhaled Oxygen Concentration - - Weight 96.6 kg (212 lb 15.4 oz) 10/07/2024 1:59 PM CDT Height 168.2 cm (5' 6.22") 11/12/2023 1:33 PM CD T Body Mass Index 34.15 11/12/2023 1:33 PM CDT Plan of Treatment Upcoming Encounters Date Type Department Care Team (Late st Contact Info) Description 10/19/2024 10:15 AM CDT Ancillary Procedure Diagnostic Imaging in [facility] [address] [place] [address] [address], [address] [place] [address] Risa Trevino, PA [facility] [place], [place] [id number] [email or web address] 10/27/2024 2:20 PM CDT Telephone MD [facility] in [place] - Breast Medical Oncology [address] [place] [address] [address] [place] [address] Danisha Arias MD [address] [place] [address] [id number] [email or web address] 04/12/2025 9:20 AM CDT Follow-Up MD [facility] in [place] - Breast Medical Oncology [address] [place] [address] [address] [place] [address] Danisha Arias MD [address] [place] [address] [id number] [email or web address] Health Maintenance Due Date Last Done Comments COVID-19 Vaccine (#1) 10/13/1960 Pneumococcal Vaccine: 50+ Years (1 of 1 - PCV) 006 Influenza Vaccine (#1) 2024 Medical Devices Implanted Type Area Customer Service Professional Device Identifier Shelf Expiration Date Model / Serial / Lot Candida Potts Isp 8fr - [id number] Implanted:Qty: 1 on 11/14/2021 at [facility] Explanted:2021 (Quantity not on file) Port Left: Chest Wall [employer]ARD [employer] 09/21/2022 [id number] / [id number] / [id number] Hip Replacement Bilateral : Hip Description:bilateral Knee Replacement Right: Knee Description:right Procedures Procedure Name Priority Date/Time Associated Diagnosis Comments .CBC Routine 10/07/2024 1:18 PM CDT Infiltrating duct carcinoma of right breast COMPLETE BLOOD COUNT W/ DIFFERENTIAL Routine 10/07/2024 1:18 PM CDT Infiltrating duct carcinoma of right breast COMPREHENSIVE METABOLIC PANEL Routine 10/07/2024 1:18 PM CDT Infiltrating duct carcinoma of right breast .CBC Routine 07/29/2024 10:02 AM BSS SOLUTION ARCHITECT Infiltrating duct carcinoma of right female breast COMPLETE BLOOD COUNT W/ DIFFERENTIAL Routine 07/29/2024 10:02 AM BSS SOLUTION ARCHITECT Infiltrating duct carcinoma of right female breast COMPREHENSIVE METABOLIC PANEL Routine 07/29/2024 10:02 AM BSS SOLUTION ARCHITECT Infiltrating duct carcinoma of right female breast US LEG VENOUS DOPPLER LEFT Routine 07/21/2024 11:37 AM BSS SOLUTION ARCHITECT Infiltrating duct carcinoma of right female breast US CHEST/INFRACLAV FOR BREAST ULTRASOUND Routine 07/21/2024 10:25 AM BSS SOLUTION ARCHITECT Infiltrating duct carcinoma of right female breast US BREAST COMPLETE RIGHT Routine 07/21/2024 10:25 AM BSS SOLUTION ARCHITECT Infiltrating duct carcinoma of right female breast MAMMO DIGITAL DIAGNOSTIC BILATERAL W JASSON Routine 07/21/2024 9:48 AM BSS SOLUTION ARCHITECT Estrogen receptor positive status (ER+) .CBC Routine 07/01/2024 11:07 AM BSS SOLUTION ARCHITECT Infiltrating duct carcinoma of right female breast MAGNESIUM LEVEL Routine 07/01/2024 11:07 AM BSS SOLUTION ARCHITECT Infiltrating duct carcinoma of right female breast COMPREHENSIVE METABOLIC PANEL Routine 07/01/2024 11:07 AM BSS SOLUTION ARCHITECT Infiltrating duct carcinoma of right female breast COMPLETE BLOOD COUNT W/ DIFFERENTIAL Routine 07/01/2024 11:07 AM BSS SOLUTION ARCHITECT Infiltrating duct carcinoma of right female breast .CBC Routine 06/02/2024 11:30 AM BSS SOLUTION ARCHITECT Infiltrating duct carcinoma of right female breast COMPREHENSIVE METABOLIC PANEL Routine 06/02/2024 11:30 AM BSS SOLUTION ARCHITECT Infiltrating duct carcinoma of right female breast COMPLETE BLOOD COUNT W/ DIFFERENTIAL Routine 06/02/2024 11:30 AM BSS SOLUTION ARCHITECT Infiltrating duct carcinoma of right female breast US HEAD NECK SOFT TISSUE Routine 05/07/2024 1:14 PM BSS SOLUTION ARCHITECT Thyroid nodule .CBC Routine 05/05/2024 11:18 AM BSS SOLUTION ARCHITECT Infiltrating duct carcinoma of right female breast FREE THYROXINE Routine 05/05/2024 11:18 AM BSS SOLUTION ARCHITECT Thyroid nodule THYROID STIMULATING HORMONE Routine 05/05/2024 11:18 AM BSS SOLUTION ARCHITECT Thyroid nodule COMPLETE BLOOD COUNT W/ DIFFERENTIAL Routine 05/05/2024 11:18 AM BSS SOLUTION ARCHITECT Infiltrating duct carcinoma of right female breast COMPREHENSIVE METABOLIC PANEL Routine 05/05/2024 11:18 AM BSS SOLUTION ARCHITECT Infiltrating duct carcinoma of right female breast .CBC Routine 04/07/2024 9:55 AM CDT Infiltrating duct carcinoma of right female breast MAGNESIUM LEVEL Routine 04/07/2024 9:55 AM CDT Infiltrating duct carcinoma of right female breast COMPREHENSIVE METABOLIC PANEL Routine 04/07/2024 9:55 AM CDT Infiltrating duct carcinoma of right female breast COMPLETE BLOOD COUNT W/ DIFFERENTIAL Routine 04/07/2024 9:55 AM CDT Infiltrating duct carcinoma of right female breast .CBC Routine 02/25/2024 1:23 PM CDT Infiltrating ductal carcinoma of central portion of right female breast COMPREHENSIVE METABOLIC PANEL Routine 02/25/2024 1:23 PM CDT Infiltrating ductal carcinoma of central portion of right female breast COMPLETE BLOOD COUNT W/ DIFFERENTIAL Routine 02/25/2024 1:23 PM CDT Infiltrating ductal carcinoma of central portion of right female breast DEXA BONE MINERAL DENSITY BOTH HIPS AND SPINE Routine 01/30/2024 11:47 AM CDT Infiltrating ductal carcinoma of central portion of right female breast MAMMO DIGITAL DIAGNOSTIC BILATERAL W JASSON Routine 01/30/2024 11:29 AM CDT Infiltrating ductal carcinoma of central portion of right female breast .CBC Routine 01/08/2024 11:32 AM CDT Infiltrating ductal carcinoma of central portion of right female breast COMPREHENSIVE METABOLIC PANEL Routine 01/08/2024 11:32 AM CDT Infiltrating ductal carcinoma of central portion of right female breast COMPLETE BLOOD COUNT W/ DIFFERENTIAL Routine 01/08/2024 11:32 AM CDT Infiltrating ductal carcinoma of central portion of right female breast .CBC Routine 12/11/2023 2:01 PM CDT Infiltrating ductal carcinoma of central portion of right female breast MAGNESIUM LEVEL Routine 12/11/2023 2:01 PM CDT Infiltrating ductal carcinoma of central portion of right female breast COMPREHENSIVE METABOLIC PANEL Routine 12/11/2023 2:01 PM CDT Infiltrating ductal carcinoma of central portion of right female breast COMPLETE BLOOD COUNT W/ DIFFERENTIAL Routine 12/11/2023 2:01 PM CDT Infiltrating ductal carcinoma of central portion of right female breast .CBC Routine 11/12/2023 1:26 PM CDT Infiltrating ductal carcinoma of central portion of right female breast MAGNESIUM LEVEL Routine 11/12/2023 1:26 PM CDT Infiltrating ductal carcinoma of central portion of right female breast COMPREHENSIVE METABOLIC PANEL Routine 11/12/2023 1:26 PM CDT Infiltrating ductal carcinoma of central portion of right female breast COMPLETE BLOOD COUNT W/ DIFFERENTIAL Routine 11/12/2023 1:26 PM CDT Infiltrating ductal carcinoma of central portion of right female breast .CBC Routine 10/16/2023 2:08 PM CDT Infiltrating ductal carcinoma of central portion of right female breast CARBOHYDRATE ANTIGEN 15-3 Routine 10/16/2023 2:08 PM CDT Infiltrating ductal carcinoma of central portion of right female breast COMPREHENSIVE METABOLIC PANEL Routine 10/16/2023 2:08 PM CDT Infiltrating ductal carcinoma of central portion of right female breast COMPLETE BLOOD COUNT W/ DIFFERENTIAL Routine 10/16/2023 2:08 PM CDT Infiltrating ductal carcinoma of central portion of right female breast after 10/10/2023 Results * (ABNORMAL) .CBC (10/07/2024 1:18 PM CDT) Only the most recent of11 resultswithin the time period is included. White Blood Cell 4.0(L) 4.1 - 10.5 K/uL 10/07/2024 1:22 PM CDT [place] Red Blood Cell 3.46(L) 3.99 - 5.46 M/uL 10/07/2024 1:22 PM CDT [place] Hemoglobin 12.5 12.2 - 15.3 g/dL 10/07/2024 1:22 PM CDT [place] Hematocrit 35.6(L) 36.4 - 46.8 % 10/07/2024 1:22 PM CDT [place] Mean Cell Volume 103(H) 82 - 99 fL 10/07/2024 1:22 PM CDT [place] Mean Cell Hemoglobin 36.1(H) 26.6 - 33.2 pg 10/07/2024 1:22 PM CDT [place] Mean Cell Hemoglobin Concentration 35.1 31.1 - 35.2 g/dL 10/07/2024 1:22 PM CDT [place] RDW-SD 49.0 37.5 - 49.7 fL 10/07/2024 1:22 PM CDT [place] Red Cell Diameter Width 13.2 11.6 - 15.5 % 10/07/2024 1:22 PM CDT [place] Platelet 165 160 - 397 K/uL 10/07/2024 1:22 PM CDT [place] Mean Platelet Volume 8.5(L) 9.1 - 12.6 fL 10/07/2024 1:22 PM CDT [place] Neutrophil % 60.9 43.2 - 72.7 % 10/07/2024 1:22 PM CDT [place] Lymphocyte % 29.5 16.8 - 46.2 % 10/07/2024 1:22 PM CDT [place] Monocyte % 8.3 5.1 - 12.5 % 10/07/2024 1:22 PM CDT [place] Eosinophil % 0.5 0.4 - 6.3 % 10/07/2024 1:22 PM CDT [place] Basophil % 0.8 0.2 - 1.4 % 10/07/2024 1:22 PM CDT [place] Neutrophil Abs 2.41 1.95 - 7.25 K/uL 10/07/2024 1:22 PM CDT [place] Lymphocyte Abs 1.17 1.01 - 3.24 K/uL 10/07/2024 1:22 PM CDT [place] Monocyte Abs 0.33 0.24 - 0.85 K/uL 10/07/2024 1:22 PM CDT [place] Eosinophil Abs 0.02 0.02 - 0.50 K/uL 10/07/2024 1:22 PM CDT [place] Basophil Abs 0.03 0.02 - 0.09 K/uL 10/07/2024 1:22 PM CDT [place] Blood Peripheral blood specimen / Unknown Venipuncture / Unknown 10/07/2024 1:18 PM CDT 10/07/2024 1:18 PM CDT us Risa [facility] LAB BLOOD ORDERABLES Final Resul t ANNALISE JANG [facility] [address], [address] [place] [address] * (ABNORMAL) Comprehensive Metabolic Panel (10/07/2024 1:18 PM CDT) Only the most recent of11 resultswithin the time period is included. Bilirubin Total 0.5 0.0 - 1.2 mg/dL 10/07/2024 1:41 PM CDT [place] Comment:Indocyanine Green (I CG) may cause falsely elevated bilirubin results. Total and direct bilirubin must not be measured from samples containing indocyanine green. False elevation of total bilirubin can be seen in patients with IgG concentrations above 28 g/L. eGFR 51(L) >=60 mL/min/1. 73 sq. m 10/07/2024 1:41 PM CDT [place] Comment: The eGFRcr is calculated with the 2020 CKD-EPI creatinine equation using creatinine, patient's age, and sex for adults 18 years of age and older. Other factors, especially muscle mass, may affect accuracy and need to be considered. According to the Kidney Disease: Improving Global Outcomes (KDIGO) CKD Work Group 2012 Clinical Practice Guideline, chronic kidney disease (CKD) is defined as the abnormalities of kidney structure or function, present for more than 3 months, with implications for health. CKD should be classified by cause, GFR category, and albuminuria category. KDIGO guidelines provide the following GFR categories. Stage / Description / GFR mL/min/1.73 m2: G1* / Normal or high / >= 90 G2* / Mildly decreased / 60-89 G3a / Mildly to moderately decreased / 45-59 G3b / Moderately to severely decreased / 30-44 G4 / Severely decreased / 15-29 G5 / Kidney failure / <15 *In the absence of evidence of kidney damage, neither G1 nor G2 fulfill criteria for CKD. Tot Protein 7.4 6.4 - 8.3 gm/dL 10/07/2024 1:41 PM CDT [place] Calcium Level Total 8.9 8.2 - 10.2 mg/dL 10/07/2024 1:41 PM CDT [place] Alkaline Phosphatase 49 35 - 104 U/L 10/07/2024 1:41 PM CDT [place] Albumin Level 3.7 3.5 - 5.2 gm/dL 10/07/2024 1:41 PM CDT [place] AST 15 <=32 U/L 10/07/2024 1:41 PM CDT [place] ALT 12 <=33 U/L 10/07/2024 1:41 PM CDT [place] Sodium Level 135(L) 136 - 145 mmol/L 10/07/2024 1:41 PM CDT [place] Potassium Level 3.5 3.4 - 4.5 mmol/L 10/07/2024 1:41 PM CDT [place] Chloride 100 98 - 107 mmol/L 10/07/2024 1:41 PM CDT [place] CO2 24 22 - 29 mmol/L 10/07/2024 1:41 PM CDT [place] Anion Gap 11 4 - 14 mmol/L 10/07/2024 1:41 PM CDT [place] Creatinine 1.16(H) 0.51 - 0.95 mg/dL 10/07/2024 1:41 PM CDT [place] BUN 15 6 - 23 mg/dL 10/07/2024 1:41 PM CDT [place] Glucose Level 95 70 - 99 mg/dL 10/07/2024 1:41 PM CDT [place] Comment: Effective 01/18/16, the glucose reference intervals have been updated based on [place] [employer] guidelines (Standards of Medical Care in Diabetes 2016. Diabetes Care 2016; 39: S13-S22). Fasting blood glucose: Normal: 70-99 mg/dL Impaired fasting glucose (increased risk for diabetes or pre-diabetes): 100-125 mg/dL Diabetes mellitus: >/=126 mg/dL Random blood glucose: Normal: 70-199 mg/dL Note: Random glucose >100 mg/dL is associated with increased risk for diabetes. Blood Peripheral blood specimen / Unknown Venipuncture / Unknown 10/07/2024 1:18 PM CDT 10/07/2024 1:18 PM CDT us Risa RENNER LAB BLOOD ORDERABLES Final Resul t ANNALISE JANG [facility] Annalise Jang [address], [address] [place] [address] * US Leg Venous Doppler Left (07/21/2024 11:37 AM BSS SOLUTION ARCHITECT) Anatomical Region Laterality Modality Leg, Extremity Ultrasound 07/21/2024 3:13 PM BSS SOLUTION ARCHITECT Impressions 07/21/2024 3:15 PM BSS SOLUTION ARCHITECT No deep venous thrombosis in the left lower extremity. ACTIONABLE ITEMS/RECOMMENDATIONS*: None. *An Actionable Finding is a finding that may be unrelated to the original reason for imaging but potentially actionable, meaning further investigation may be necessary. The Actionable Findings Vigilance Unit (AFVU) assists medical providers with responding to additional radiologic findings that are unexpected and potentially actionable. Narrative 07/21/2024 3:15 PM BSS SOLUTION ARCHITECT Examination: US LEG VENOUS DOPPLER LEFT on 07/21/2024 11:37 AM. 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 Indication: Edema, left leg pain. Comparison: None available. TECHNIQUE: Sonographic evaluation of the deep veins of the left lower extremity is performed assessing grayscale appearance, color and spectral Doppler flow and compressibility. FINDINGS: The common femoral, femoral, proximal deep femoral, and popliteal veins and saphenofemoral junction demonstrate color flow and compressibility. The visualized peroneal, anterior tibial and posterior tibial veins demonstrate color flow. Procedure Note Ki Cochran MD - 07/21/2024 Examination: US LEG VENOUS DOPPLER LEFT on 07/21/2024 11:37 AM. 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 Indication: Edema, left leg pain. Comparison: None available. TECHNIQUE: Sonographic evaluation of the deep veins of the left lowerextremity is performed assessing grayscale appearance, color and spectralDoppler flow and compressibility. FINDINGS: The common femoral, femoral, proximal deep femoral, and popliteal veinsand saphenofemoral junction demonstrate color flow and compressibility. The visualized peroneal, anterior tibial and posterior tibial veinsdemonstrate color flow. IMPRESSION: No deep venous thrombosis in the left lower extremity. ACTIONABLE ITEMS/RECOMMENDATIONS*: None. *An Actionable Finding is a finding that may be unrelated to the originalreason for imaging but potentially actionable, meaning furtherinvestigation may be necessary. The Actionable Findings Vigilance Unit(AFVU) assists medical providers with responding to additional radiologicfindings that are unexpected and potentially actionable. us Risa SAUL US ORDERABLES Final Result * US Chest/Infraclav for Breast Ultrasound (07/21/2024 10:25 AM BSS SOLUTION ARCHITECT) Anatomical Region Laterality Modality Chest Bilateral Ultrasound Impressions 07/21/2024 11:25 AM BSS SOLUTION ARCHITECT No sonographic evidence of malignancy. Clinical follow-up of the patient's symptoms is recommended. Overall BI-RAD Category: 2 - Benign Recommend return to annual screening mammography, due on 06/2025. Narrative 07/21/2024 11:25 AM BSS SOLUTION ARCHITECT CLINICAL INDICATION: Patient is a 68 y.o. female and is seen for breast cancer. US Breast Complete Right US Chest/Infraclav for Breast Ultrasound COMPARISON: The present examination has been compared to prior imaging studies performed : 10/26/2021 US Breast Complete - Bilateral at [facility], 02/09/2022 US Breast Complete Right at [facility], 04/27/2022 US Breast Complete - Right at [facility], 05/23/2022 US Guided Breast Non-Wire Localization Right at [facility], 05/24/2022 Breast Specimen Radiograph (Right) at [facility], 01/29/2023 Mammography Digital Diagnostic Bilateral with Jasson at [facility], 01/30/2024 Mammography Digital Diagnostic Bilateral with Jasson at [facility], 07/21/2024 Diagnostic Mammogram w Jasson - Bilateral at [facility] TECHNIQUE: Real-time sonographic imaging was performed on the following regions: right, breast (including all 4 quadrants and retroareolar region) right, regional eddy basin including the axillary (level I,II,III) and internal mammary regions. Images were obtained in multiple scanning planes. FINDINGS: There are no suspicious sonographic findings in the right breast. A hypoechoic postsurgical scar is present in the central breast. Posttreatment skin thickening is noted measuring up to 0.6 cm at the 3 o'clock position. The patient reports right upper outer quadrant pain with no suspicious sonographic correlate. A right axillary surgical scar is present. There is no axillary levels 1-3 or internal mammary lymphadenopathy. us Risa RENNER IMRoni US ORDERABLES Final Result * US Breast Complete Right (07/21/2024 10:25 AM BSS SOLUTION ARCHITECT) Anatomical Region Laterality Modality Breast Right Ultrasound Impressions 07/21/2024 11:25 AM BSS SOLUTION ARCHITECT No sonographic evidence of malignancy. Clinical follow-up of the patient's symptoms is recommended. Overall BI-RAD Category: 2 - Benign Recommend return to annual screening mammography, due on 06/2025. Narrative 07/21/2024 11:25 AM BSS SOLUTION ARCHITECT CLINICAL INDICATION: Patient is a 68 y.o. female and is seen for breast cancer. US Breast Complete Right US Chest/Infraclav for Breast Ultrasound COMPARISON: The present examination has been compared to prior imaging studies performed : 10/26/2021 US Breast Complete - Bilateral at [facility], 02/09/2022 US Breast Complete Right at [facility], 04/27/2022 US Breast Complete - Right at [facility], 05/23/2022 US Guided Breast Non-Wire Localization Right at [facility], 05/24/2022 Breast Specimen Radiograph (Right) at [facility], 01/29/2023 Mammography Digital Diagnostic Bilateral with Jasson at [facility], 01/30/2024 Mammography Digital Diagnostic Bilateral with Jasson at [facility], 07/21/2024 Diagnostic Mammogram w Jasson - Bilateral at [facility] TECHNIQUE: Real-time sonographic imaging was performed on the following regions: right, breast (including all 4 quadrants and retroareolar region) right, regional eddy basin including the axillary (level I,II,III) and internal mammary regions. Images were obtained in multiple scanning planes. FINDINGS: There are no suspicious sonographic findings in the right breast. A hypoechoic postsurgical scar is present in the central breast. Posttreatment skin thickening is noted measuring up to 0.6 cm at the 3 o'clock position. The patient reports right upper outer quadrant pain with no suspicious sonographic correlate. A right axillary surgical scar is present. There is no axillary levels 1-3 or internal mammary lymphadenopathy. us Risa RENNER [facility] US ORDERABLES Final Result * (ABNORMAL) Diagnostic Mammogram w Jasson - Bilateral (07/21/2024 9:48 AM BSS SOLUTION ARCHITECT) Only the most recent of2 resultswithin the time period is included. Anatomical Region Laterality Modality Breast Bilateral Mammography Impressions 07/21/2024 11:21 AM BSS SOLUTION ARCHITECT Right 1) Post-Surgical Finding: Right breast post-surgical finding. Additional Imaging: Breast Ultrasound is recommended. Left There is no mammographic evidence of malignancy in the left breast. Overall BI-RAD Category: 0 - Incomplete: Needs Additional Imaging Evaluation Additional Imaging: Breast Ultrasound is recommended for the right breast. Narrative 07/21/2024 11:21 AM BSS SOLUTION ARCHITECT CLINICAL INDICATION: Patient is a 68 y.o. female and is seen for breast pain. Diagnostic Mammogram w Jasson - Bilateral Computer-aided detection was utilized by the radiologist in the interpretation of this examination. Tomosynthesis was performed in CC and MLO projections. COMPARISON: The present examination has been compared to prior imaging studies performed : 10/26/2021 Post Procedure Mammogram Right at [facility], 04/27/2022 Mammography Digital Diagnostic Right with Jasson at [facility], 05/23/2022 Post Procedure Mammogram Right at [facility], 01/29/2023 Mammography Digital Diagnostic Bilateral with Jasson at [facility], 06/21/2023 US Breast Complete Left at [facility], 01/30/2024 Mammography Digital Diagnostic Bilateral with Jasson at [facility] FINDINGS: There are scattered areas of fibroglandular density. Right 1) Post-Surgical Finding: There is a scar and a surgical clip seen in the right breast. 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 There is associated trabecular thickening and skin thickening. There is no mammographic evidence of recurrent disease. The patient reports right upper outer quadrant pain with no suspicious mammographic correlate. Postsurgical scar with clips noted right axilla. Left There is no evidence of suspicious masses, calcifications, or other abnormal findings in the left breast. Joe Campbellsheila MUÑOZ IMG MAMMOGRAPHY ORDERABLES Final Result * Magnesium Level (07/01/2024 11:07 AM BSS SOLUTION ARCHITECT) Only the most recent of4 resultswithin the time period is included. Magnesium Level 2.2 1.6 - 2.6 mg/dL 07/01/2024 11:35 AM BSS SOLUTION ARCHITECT [facility] Peripheral blood specimen / Unknown Venipuncture / Unknown 07/01/2024 11:07 AM BSS SOLUTION ARCHITECT 07/01/2024 11:10 AM BSS SOLUTION ARCHITECT Gil Edwards WANDA LAB BLOOD ORDERABLES Final Resul t [facility] [address], [address] [place] [address] * US Head Neck Soft Tissue (05/07/2024 1:14 PM BSS SOLUTION ARCHITECT) Anatomical Region Laterality Modality Head, Neck Ultrasound 05/07/2024 1:08 PM BSS SOLUTION ARCHITECT Impressions 05/07/2024 1:17 PM BSS SOLUTION ARCHITECT 1. A left isthmus TR 3 nodule measuring up to 18 mm. Per ACR guidelines below for low risk population, this qualifies for follow-up, but not currently for FNA biopsy. ACTIONABLE ITEMS/RECOMMENDATIONS*: None. *An Actionable Finding is a finding that may be unrelated to the original reason for imaging but potentially actionable, meaning further investigation may be necessary. The Actionable Findings Vigilance Unit (AFVU) assists medical providers with responding to additional radiologic findings that are unexpected and potentially actionable. General considerations for ACR TI-RADS: Please note: TI-RADS recommendations are for low risk patients. If there are patient related factors, i.e. positive PET/CT, personal history of head and neck radiation as a child, or other risk factors for papillary thyroid carcinoma, the recommendations may not apply to that specific patient. References: Toby ALVAREZ et al., J Am [facility] 2017;14:587-595. https://www.acr.org/Clinical-Resources/Utpmlevjz-qug-Ntzk-Systems/TI-RADS ACR 2017 White Paper Guidelines for Thyroid Nodule Management: TR1 Benign: no FNA TR2 Not Suspicious: No FNA TR3 Mildly Suspicious: FNA if >= 2.5 cm; Follow if >= 1.5 cm at 1, 3, and 5 years TR4 Moderately Suspicious: FNA if >= 1.5 cm; Follow if >= 1 cm at 1, 2, 3, and 5 years. TR5 Highly Suspicious: FNA if >= 1 cm; Follow if >= 0.5 cm every year for up to 5 years. 2017 cancer risk final analysis as per Multi-institutional Analysis of Thyroid Nodule Risk Stratification Using the ACR TI-RADS: TR1: 0.3% TR2: 1.5% TR3: 4.8% TR4: 9.1% TR5: 35% Narrative 05/07/2024 1:17 PM BSS SOLUTION ARCHITECT FULL RESULT: Examination: US HEAD NECK SOFT TISSUE on 05/07/2024 1:14 PM. CLINICAL HISTORY/ INDICATION: Thyroid nodule E04.1 . History of breast cancer. COMPARISON: None. PROCEDURE COMMENTS: Real-time ultrasound examination of the neck soft tissues was performed. FINDINGS: Right Thyroid Lobe: 2.9 x 1.3 x 1.0 cm Background parenchymal echogenicity: Normal Right central compartment: No suspicious appearing lymph nodes. Isthmus: 0.2 cm thick Nodule 1: Left isthmus nodule is heterogeneous but predominantly isoechoic with a few small cysts. This measures 18 x 16 x 7 mm. ACR TI-RADS: TR 3 Suprasternal or Delphian lymph nodes: No suspicious appearing lymph nodes. Left Thyroid Lobe: 3.7 x 1.3 x 1.1 cm Background parenchymal echogenicity: Normal Left central compartment: No suspicious appearing lymph nodes. Lymph nodes: Right lateral compartment: No suspicious appearing lymph nodes. Left lateral compartment: No suspicious appearing lymph nodes. Procedure Note Sg Somers Jr., MD - 05/07/2024 FULL RESULT: Examination: US HEAD NECK SOFT TISSUE on 05/07/2024 1:14 PM. CLINICAL HISTORY/ INDICATION: Thyroid nodule E04.1 . History of breastcancer. COMPARISON: None. PROCEDURE COMMENTS: Real-time ultrasound examination of the neck softtissues was performed. FINDINGS: Right Thyroid Lobe: 2.9 x 1.3 x 1.0 cm Background parenchymal echogenicity: Normal Right central compartment: No suspicious appearing lymph nodes. Isthmus: 0.2 cm thick Nodule 1: Left isthmus nodule is heterogeneous but predominantly isoechoicwith a few small cysts. This measures 18 x 16 x 7 mm. ACR TI-RADS: TR 3 Suprasternal or Delphian lymph nodes: No suspicious appearing lymphnodes. Left Thyroid Lobe: 3.7 x 1.3 x 1.1 cm Background parenchymal echogenicity: Normal Left central compartment: No suspicious appearing lymph nodes. Lymph nodes: Right lateral compartment: No suspicious appearing lymph nodes. Left lateral compartment: No suspicious appearing lymph nodes. IMPRESSION: 1. A left isthmus TR 3 nodule measuring up to 18 mm. Per ACR guidelines below for low risk population, this qualifies forfollow-up, but not currently for FNA biopsy. ACTIONABLE ITEMS/RECOMMENDATIONS*: None. *An Actionable Finding is a finding that may be unrelated to the originalreason for imaging but potentially actionable, meaning furtherinvestigation may be necessary. The Actionable Findings Vigilance Unit(AFVU) assists medical providers with responding to additional radiologicfindings that are unexpected and potentially actionable. General considerations for ACR TI-RADS: Please note: TI-RADSrecommendations are for low risk patients. If there are patient relatedfactors, i.e. positive PET/CT, personal history of head and neck radiationas a child, or other risk factors for papillary thyroid carcinoma, therecommendations may not apply to that specific patient. References: Toby ALVAREZ et al., J Am [facility] 2017;14:587-595. https://www.acr.org/Clinical-Resources/Rxscofncv-zyd-Wyzf-Systems/TI-RADS ACR 2017 White Paper Guidelines for Thyroid Nodule Management: TR1 Benign: no FNA TR2 Not Suspicious: No FNA TR3 Mildly Suspicious: FNA if >= 2.5 cm; Follow if >= 1.5 cm at 1, 3, and5 years TR4 Moderately Suspicious: FNA if >= 1.5 cm; Follow if >= 1 cm at 1, 2, 3,and 5 years. TR5 Highly Suspicious: FNA if >= 1 cm; Follow if >= 0.5 cm every year forup to 5 years. 2017 cancer risk final analysis as per Multi-institutional Analysis ofThyroid Nodule Risk Stratification Using the ACR TI-RADS: TR1: 0.3% TR2: 1.5% TR3: 4.8% TR4: 9.1% TR5: 35% us Nazia Smith APRN,ENERGY CONSERVATION ENGINEER IMG US ORDERABLES Final Result * TSH (05/05/2024 11:18 AM BSS SOLUTION ARCHITECT) Thyroid Stimulating Hormone 1.76 0.27 - 4.20 mcunit/mL 05/05/2024 12:27 PM BSS SOLUTION ARCHITECT [place] Blood Peripheral blood specimen / Unknown Venipuncture / Unknown 05/05/2024 11:18 AM BSS SOLUTION ARCHITECT 05/05/2024 11:21 AM BSS SOLUTION ARCHITECT Nazia Smith APRN,ENERGY CONSERVATION ENGINEER LAB BLOOD ORDERABLES Fi nal Result [address], [address] [address] * T4 Free (05/05/2024 11:18 AM BSS SOLUTION ARCHITECT) T4 (Thyroxine) Free 1.08 0.92 - 1.68 ng/dL 05/05/2024 12:03 PM BSS SOLUTION ARCHITECT [place] Blood Peripheral blood specimen / Unknown Venipuncture / Unknown 05/05/2024 11:18 AM BSS SOLUTION ARCHITECT 05/05/2024 11:21 AM BSS SOLUTION ARCHITECT Nazia Smith APRN,ENERGY CONSERVATION ENGINEER LAB BLOOD ORDERABLES Fi nal Result [address], [address] [place] [phone] * NM Bone Mineral Density Both Hips and Spine (01/30/2024 11:47 AM CDT) Anatomical Region Laterality Modality Spine Nuclear Medicine 01/30/2024 11:4 8 AM CDT Impressions 01/30/2024 1:39 PM CDT Normal bone mineral density. I personally reviewed these image(s) along with the resident's/fellow's interpretations, certify that if a procedure was performed I was physically present, and agree with the final report. Narrative 01/30/2024 1:39 PM CDT FULL RESULT: Examination: Bone Mineral Density (DXA), 01/30/2024 Clinical History: 68-year-old postmenopausal female with breast cancer. Indication: Assessment of bone mineral density. Comparison: None. Technique: Bone mineral density was obtained using Hologic dual-energy X-ray absorptiometry. The bilateral hips are excluded from analysis due to the presence of orthopedic hardware. The left forearm is included. Findings: The findings are provided in the below table(s). Bone Density: Region Exam Date BMD T- Z- g/cm2 Score Score AP Spine (L1-L4) 01/30/2024 1.074 -0.7 1.5 1/3 Forearm (Left) 01/30/2024 0.719 0.4 2.3 For postmenopausal women and men age 50 and over, the World Health Organization criteria for BMD interpretation classify patients as: Normal (T-score at or above -1.0), Osteopenia (T-score between -1.0 and -2.5), or Osteoporosis (T-score at or below -2.5). Procedure Note Sue Cedillo MD - 01/30/2024 FULL RESULT: Examination: Bone Mineral Density (DXA), 01/30/2024 Clinical History: 68-year-old postmenopausal female with breast cancer. Indication: Assessment of bone mineral density. Comparison: None. Technique: Bone mineral density was obtained using Hologic evsf-kwxaqmU-wyl absorptiometry. The bilateral hips are excluded from analysis due tothe presence of orthopedic hardware. The left forearm is included. Findings: The findings are provided in the below table(s). Bone Density: Region Exam Date BMD T- Z- g/cm2 Score Score AP Spine (L1-L4) 01/30/2024 1.074 -0.7 1.5 1/3 Forearm (Left) 01/30/2024 0.719 0.4 2.3 For postmenopausal women and men age 50 and over, the World Health Organization criteria for BMD interpretation classify patients as: Normal (T-score at or above -1.0), Osteopenia (T-score between -1.0 and -2.5), or Osteoporosis (T-score at or below -2.5). IMPRESSION: Normal bone mineral density. I personally reviewed these image(s) along with the resident's/fellow'sinterpretations, certify that if a procedure was performed I wasphysically present, and agree with the final report. Lynda Barlow APRN IMG DXA ORDERABLES Final Res ult * CA 15-3 (10/16/2023 2:08 PM CDT) CA 15-3 23.0 <=25.0 U/mL 10/16/2023 3: 03 PM CDT [place] Blood Peripheral blood specimen / Unknown Venipuncture / Unknown 10/16/2023 2:08 PM CDT 10/16/2023 2:11 PM CDT Narrative [place] - 10/16/2023 3:03 PM CDT Results greater than 2400.0 U/mL may not be reliable due to matrix effect with extended dilution as it exceeds the smart grid engineer's recommended limit. Caution should be exercised when interpreting such values and done in conjunction with clinical context. This test is measured by electrochemiluminescence immunoassay on [employer] immunoassay analyzers. Results obtained in different methods are not interchangeable. Lynda Barlow APRN LAB BLOOD ORDERABLES Final R esult [facility] [address], [address] [place] [address] after 10/10/2023 Insurance [employer] CHOICE MEDICARE PPO [employer] MEDICARE PPO Advance Directives * Full Code (Latest Code Status on File) Date Activated Date Inactivated Comments 05/24/2022 10:24 PM 05/25/2022 3:49 PM Care Teams Health Information Provider Relationship Specialty Start Date End Date Kasi Triplett MD [address] [place] [phone] PCP - External Referring Cardiology 10/12/21 Larissa Fermin MD [address] [place] [address] [email or web address] PCP - External Primary Care Provider Internal Medicine 10/12/21 Madeleine Plaza MD [address] [place] [id number] [email or web address] PCP - General Breast Surgery 10/20/21 02/24/24 Adam Melendez MD [address] [place] [phone] [email or web address] Consulting Physician Internal Medicine 04/02/22 Misty Cardoza MD [address] [place] [phone] [email or web address] Consulting Physician Cardiology 11/03/21 Yoav Valdez MD [address] [place] [phone] [email or web address] Consulting Physician Plastic and Reconstructive Surgery 05/23/22 Danisha Arias MD [address] [place] [phone] [email or web address] Consulting Physician Breast Medical Oncology 11/06/21 More Dickens MD [address] [place] [phone] [email or web address] Consulting Physician Endocrinology 04/15/24
--- NOTE | 2024-10-09 21:00 | RAD REPORT ---
Procedure: Chest Single View HISTORY: Shortness of breath COMPARISON: 2022 FINDINGS: The lungs appear clear of acute infiltrate. No significant pleural effusion noted. The heart is normal size. IMPRESSION: No acute abnormality is displayed.
[2024-10-09] MEDS ORDERED: KETOROLAC 30 MG/ML INJ ONE (21:13)
--- NOTE | 2024-10-09 21:21 | RAD REPORT ---
EXAMINATION: US bilateral LOWER EXTREMITY VENOUS DOPPLER CLINICAL INDICATION: Leg pain TECHNIQUE: Sonographic evaluation of the veins of the lower extremity bilaterally formed.Grayscale, c olor and spectral analysis performed on all vessels COMPARISON: 2022 FINDINGS: The common femoral, superficial femoral, greater saphenous, popliteal and posterior tibial veins bila terally are compressible and demonstrate augmentation. Doppler demonstrates good flow. IMPRESSION: No evidence of deep venous thrombosis involving either lower extremity
--- NOTE | 2024-10-09 21:21 | RAD REPORT ---
EXAMINATION:Lower Extremity Arterial Bilat CLINICAL INDICATION: Leg pain TECHNIQUE: Arterial duplex ultrasound was performed of the bilateral lower extremity arteries. With r eal-time, color-flow, and spectral wave Doppler evaluation..Grayscale, color and spectral analysis performed on all vessels COMPARISON: No prior exam. FINDINGS: Right common femoral arterial waveform triphasic Right superficial femoral arterial waveform biphasic Right popliteal arterial waveform triphasic Right posterior tibial arterial waveform biphasic. Right dorsalis pedis arterial waveform triphasic Left common femoral arterial waveform triphasic Left superficial femoral arterial waveform biphasic Left popliteal arterial waveform triphasic Left posterior tibial arterial waveform biphasic Left dorsalis pedis arterial waveform biphasic No high-grade stenosis/occlusion IMPRESSION: No significant vascular abnormality displayed
[2024-10-09 21:42] LABS: Absolute Lymphocytes (CBC) 1.2 K/uL (0.7-4.9); Absolute Monocytes 0.4 K/uL (0.1-1.3); Absolute Neutrophil 3.2 K/uL (1.8-8.0); Basophils % 0.7 % (0-1.3); Eosinophils % 0.7 % (0-4.4); Hematocrit 36.6 % (36.0-45.0); Hemoglobin 12.9 g/dL (12.0-15.0); Lymphocytes % 25.2 % (15.3-44.8); MCH 36.4 pg (27.0-35.0); MCHC 35.2 g/dL (32.0-36.0); MCV 103.5 fL (80-100); MPV 6.4 fL (7.6-11.3); Neutrophils % 65.4 % (41.7-73.7); Nucleated Red Blood Cells % 0.3 % (0-0); Platelets 191 thou/uL (152-406); RBC Red Blood Cell Count 3.54 M/uL (3.86-4.86); Red Cell Distribution Width 14.7 % (12.1-15.2)
[2024-10-09 21:53] LABS: PT Prothrombin Time 11.5 SECONDS (10-13.0); Protime INR 1.01
[2024-10-09 22:00] LABS: ALT/SGPT 19 U/L (13-56); AST/SGOT 15 U/L (15-37); Albumin 3.5 g/dL (3.4-5.0); Albumin/Globulin Ratio 0.8 (1.1-1.8); Alkaline Phosphatase 63 U/L (45-117); Anion Gap 9.2 mEq/L (5.0-15.0); BUN Blood Urea Nitrogen 18 mg/dL (7-18); Bicarbonate 30 mEq/L (21-32); Bilirubin Total 0.3 mg/dL (0.2-1.0); Globulin 4.3 g/dL (2.3-3.5); Glomerular Filtration Rate 39 ml/min (=/>90); Glucose Level 96 mg/dL (74-106); Magnesium 1.9 mg/dL (1.6-2.4); NT PRO-BNP 135 pg/mL (<125); Potassium 3.2 mEq/L (3.5-5.1); Protein, Total 7.8 g/dL (6.4-8.2); Sodium Level 138 mEq/L (136-145); Troponin High Sensitivity 15.8 pg/mL (<58.9)
[2024-10-09 22:01] LABS: Bilirubin Direct < 0.2 mg/dL (0-0.2); Bilirubin Indirect, Calculated 0.1 mg/dL (0.2-0.8)
[2024-10-09 22:02] LABS: Specific Gravity 1.008 (1.005-1.030); Sqamous Epithelial <5 /HPF (None Seen); Urine Bacteria <20 /HPF (<20); Urine Bilirubin NEGATIVE (Negative); Urine Blood Negative (Negative); Urine Clarity Turbid (Clear); Urine Color Colorless (Yellow); Urine Crystals Unidentified Few /HPF (None Seen); Urine Glucose NEGATIVE (Negative); Urine Ketones NEGATIVE (Negative); Urine Micro Reflex YN NO BILL MICROSCOPIC; Urine Mucus Slight /HPF (None Seen); Urine Nitrite NEGATIVE (Negative); Urine Protein NEGATIVE (Negative); Urine RBC <5 /HPF (None Seen); Urine Urobilinogen Normal (Normal); Urine WBC 20-50 /HPF (<5); Urine WBC Clump Rare /HPF (None Seen); Urine pH 6.5 (5.0-7.0)
[2024-10-09] MEDS ORDERED: POTASSIUM 25 MEQ EFFERV TAB ONE (22:09)
--- NOTE | 2024-10-09 23:42 | RAD REPORT ---
Clinical Indication: Bed Name: 15; Pain;Swelling Comparison: None TECHNIQUE: Sonographic evaluation of the right upper extremity veins was performed using high resolution B-mode imaging, along with pulse and color Doppler imaging. FINDINGS: Right upper extremity: The internal jugular vein, subclavian vein, axillary vein, brachial vein, radial and ulnar veins are patent. There is no echogenic debris to suggest deep venous thrombosis. The basilic vein is patent. The cephalic vein is not visualized. REFERENCE: DEEP VEINS: internal jugular, subclavian, axillary, brachial, radial, and ulnar SUPERFICIAL: basilic, cephalic IMPRESSION: No sonographic evidence of DVT in the right upper extremity. Electronically signed by: Ashutosh Odom MD 10/09/2024 11:37 PM CDT RP Due to temporary technical issues with the PACS/[employer] scribe reporting system, reports are being sign ed by the in-house radiologist without review as a courtesy to ensure prompt reporting the interpreting rad iologist is fully responsible for the content of the report. Transcribed Date/Time: 10/09/2024 11:42 PM
--- NOTE | 2024-10-10 | RAD REPORT ---
EXAM: CT Head and Cervical Spine Without Intravenous Contrast CLINICAL HISTORY: The patient is 68 years old and is Female; right arm pain/neck pain TECHNIQUE: Axial computed tomography images of the head/brain and cervical spine without intravenous contrast. Sagittal and coronal reformatted images were created and reviewed. This CT exam was performed using one or more of the following dose reduction techniques: automated exposure control, adjustmen t of the mA and/or kV according to patient size, and/or use of iterative reconstruction technique. COMPARISON: No relevant prior studies available. FINDINGS: BRAIN: Unremarkable. No hemorrhage. No significant white matter disease. No edema. VENTRICLES: Unremarkable. No ventriculomegaly. SKULL: No acute fracture. SINUSES: Unremarkable as visualized. No acute sinusitis. MASTOID AIR CELLS: Unremarkable as visualized. No mastoid effusion. VERTEBRAE: Mild reversal of the normal cervical curvature is present. Vertebral body heights an d alignment are maintained. There is no acute fracture. DISCS/SPINAL CANAL/NEURAL FORAMINA: There is multi-level intervertebral disc height loss. There a re disc-osteophyte complexes at several levels, with associated mild spinal canal narrowing. There is also facet hypertrophy and uncovertebral joint osteophytosis, with associated multilevel neural fo raminal narrowing. SOFT TISSUES: The soft tissues are normal. LUNG APICES: The lung apices are clear. IMPRESSION: 1. No acute intracranial findings. 2. Mild reversal of the normal cervical curvature is present. Findings may be secondary to patien t position versus muscle spasm. Electronically signed by: Yina Garcia MD 10/09/2024 11:56 PM CDT Due to temporary technical issues with the PACS/[employer] reporting system, reports are being navya d by the in-house radiologist without review as a courtesy to ensure prompt reporting the interpreting radiologist is fully responsible for the content of the report. Transcribed Date/Time: 10/09/2024 11:59 PM
[2024-10-10] MEDS ORDERED: METHOCARBAMOL 1,000 MG/10 ML VIAL ONE (00:16)
[2024-10-10] MEDS ORDERED: NA CHLORIDE 0.9% 100 ML ONE (00:16)
[2024-10-10] MEDS ORDERED: CEFTRIAXONE 1000 MG/VIAL ONE (00:16)
--- NOTE | 2024-10-10 00:58 | ER ---
Nurse's Notes [facility] [place] Name: Kate Brice Age: 68 yrs Sex: Female : 1955 Arrival Date: 10/09/2024 Time: 19:19 Bed 15 Private MD: Diagnosis: Pain in right arm;UTI/ Urinary tract infection, site not specified;Pain in left leg Presentation: 10/09 19:29 Chief complaint: Patient states: RT ARM PAIN, STOMACH PAIN AND LT LEG PAIN X 1 WEEK AND dd2 RT THROAT PAIN X 5-6 YEARS. Coronavirus screen: At this time, the client does not indicate any symptoms associated with coronavirus-19. Ebola Screen: No symptoms or risks identified at this time. Initial Sepsis Screen: Does the patient meet any 2 criteria? No. Patient's initial sepsis screen is negative. Does the patient have a suspected source of infection? No. Patient's initial sepsis screen is negative. Risk Assessment: Do you want to hurt yourself or someone else? Patient reports no desire to harm self or others. Onset of symptoms is unknown. 19:29 Method Of Arrival: Ambulatory dd2 19:29 Acuity: RACQUEL 3 dd2 Triage Assessment: 19:32 General: Appears in no apparent distress. Behavior is calm, cooperative, appropriate dd2 for age. Pain: Complains of pain in RT ARM, LT LEG, RT SIDE OF THROAT, STOMACH. EENT: Throat is clear Reports pain in RT SIDE OF THROAT PT DENIES DIFFICULTY SWALLOWING OR DIFFICULTY TALKING. Pain is 8 out of 10 on a pain scale. Neuro: Del Rosario Agitation-Sedation Scale (RASS): 0 - Alert and Calm Level of Consciousness is awake, alert, obeys commands, Oriented to person, place, time, situation, Appropriate for age. Cardiovascular: Patient's skin is warm and dry. Respiratory: Airway is patent Respiratory effort is even, unlabored, Respiratory pattern is regular, symmetrical. GI: Abdomen is non-distended, obese, Abd is soft and non tender X 4 quads. : No deficits noted. No signs and/or symptoms were reported regarding the genitourinary system. Derm: No deficits noted. No signs and/or symptoms reported regarding the dermatologic system. Skin is intact, Skin is dry, Skin is normal, Skin temperature is warm. Musculoskeletal: No deficits noted. No signs and/or symptoms reported regarding the musculoskeletal system. Circulation, motion, and sensation intact. Range of motion: intact in all extremities. Historical: - Allergies: 19:32 NKDA; dd2 - PMHx: 19:32 Arthritis; breast cancer; Hypertension; dd2 - PSHx: 19:32 breast- removed 19 lymphnodes; hip replacement; hysterectomy; knee replacement; dd2 - Immunization history:: Adult Immunizations up to date. - Infectious Disease History:: Denies. - Social history:: Smoking status: Patient denies any tobacco usage or history of. Screenin:10 [facility] ED Fall Risk Assessment (Adult) History of falling in the last 3 months, br2 including since admission No falls in past 3 months (0 pts) Confusion or Disorientation No (0 pts) Intoxicated or Sedated No (0 pts) Impaired Gait No (0 pts) Mobility Assist Device Used No (0 pt) Altered Elimination No (0 pt) Score/Fall Risk Level 0 - 2 = Low Risk Oriented to surroundings. Abuse screen: Denies threats or abuse. Denies injuries from another. Nutritional screening: No deficits noted. Tuberculosis screening: No symptoms or risk factors identified. Assessment: 20:10 Reassessment: Patient and/or family updated on plan of care and expected duration. Pain br2 level reassessed. Patient is alert, oriented x 3, equal unlabored respirations, skin warm/dry/pink. General: Appears in no apparent distress. comfortable, Behavior is calm, cooperative. Pain: Complains of pain in neck Pain began years ago. Neuro: Del Rosario Agitation-Sedation Scale (RASS): 0 - Alert and Calm Level of Consciousness is awake, alert, obeys commands, Oriented to person, place, time, situation. Cardiovascular: Capillary refill < 3 seconds. Respiratory: Airway is patent Respiratory effort is even, unlabored, Respiratory pattern is regular, symmetrical. GI: Reports lower abdominal pain, Patient currently denies diarrhea, nausea, vomiting. : Denies burning with urination, urinary frequency. EENT: Reports pain in right jaw since FOR THE LAST 5 YEARS....PT HAS SEEN HER ENT RECENTLY AND STATES THEY HAVEN'T BEEN ABLE TO FIND ANYTHING WRONG. 21:37 Reassessment: Patient is alert, oriented x 3, equal unlabored respirations, skin br2 warm/dry/pink. Patient states symptoms have not improved. 23:29 Reassessment: Patient and/or family updated on plan of care and expected duration. Pain br2 level reassessed. Patient is alert, oriented x 3, equal unlabored respirations, skin warm/dry/pink. Patient states feeling better. Patient states symptoms have improved. 10/10 00:51 Reassessment: Patient and/or family updated on plan of care and expected duration. Pain br2 level reassessed. Patient is alert, oriented x 3, equal unlabored respirations, skin warm/dry/pink. Patient states feeling better. Patient states symptoms have improved. Vital Signs: 10/09 19:29 BP 126 / 69; Pulse 73; Resp 16; Temp 98.4; Pulse Ox 98% on R/A; Weight 95.71 kg; Height dd2 5 ft. 7 in. ; Pain 8/10; 21:36 BP 134 / 81; Pulse 55; Resp 18 S; Pulse Ox 100% on R/A; Pain 7/10; br2 22:29 BP 128 / 80; Pulse 50; Resp 18 S; Pulse Ox 99% on R/A; br2 23:26 BP 141 / 82; Pulse 63; Resp 18; Pulse Ox 98% ; Pain 0/10; br2 10/10 00:51 BP 135 / 64; Pulse 53; Resp 18 S; Pulse Ox 98% on R/A; Pain 0/10; br2 01:11 BP 126 / 76; Pulse 51; Resp 22 S; Pulse Ox 100% on R/A; br2 10/09 19:29 Body Mass Index 33.05 (95.71 kg, 170.18 cm) dd2 10/09 19:29 Pain Scale: Adult dd2 21:36 Pain Scale: Adult br2 23:26 Pain Scale: Adult br2 10/10 00:51 Pain Scale: Adult br2 ED Course: 10/09 19:23 Patient arrived in ED. jj6 19:32 Triage completed. dd2 19:32 Arm band placed on right wrist. dd2 19:47 Cecil Dawkins PA is PHCP. cp 19:47 Samanta Palmer MD is Attending Physician. cp 19:54 Chela Le RN is Primary Nurse. br2 20:10 Patient has correct armband on for positive identification. Placed in gown. Bed in low br2 position. Call light in reach. Side rails up X 1. Provided Education on: PLAN OF CARE. 20:15 EKG done, by ED staff. hw 20:44 XRAY Chest (1 view) In Process Unspecified. EDMS 21:13 US Extremity Venous W Compression Ramesh: also US right arm to r/o DVT In Process EDMS Unspecified. 21:13 Lower Extremity Arterial Bilat US In Process Unspecified. EDMS 21:35 Basic Metabolic Panel Sent. br2 21:35 CBC with Diff Sent. br2 21:35 LFT's Sent. br2 21:35 Magnesium Sent. br2 21:36 NT PRO-BNP Sent. br2 21:36 PT-INR Sent. br2 21:36 Inserted saline lock: 22 gauge in left antecubital area, using aseptic technique. Blood br2 collected. Flushed with 10 mL NS. 22:35 Awaiting: ULTRASOUND AT BEDSIDE. PENDING RESULTS. br2 22:55 UPPER EXTREMITY VENOUS UNILATE In Process Unspecified. EDMS 23:16 CT Head C Spine In Process Unspecified. EDMS 10/10 00:59 Saeed Ball MD is Attending Physician. cp 01:10 IV discontinued, intact, bleeding controlled, No redness/swelling at site. Pressure br2 dressing applied. Administered Medications: 10/09 21:35 Drug: Ketorolac IVP 15 mg IVP once Route: IVP; Site: left antecubital; br2 10/10 00:51 Follow up: Response: No adverse reaction; Pain is decreased br2 10/09 22:12 Drug: Potassium PO Effervescent Tablet 50 mEq PO once; dissolve in 4 ounces of water or br2 juice Route: PO; 10/10 00:51 Follow up: Response: No adverse reaction br2 00:27 Drug: Methocarbamol IVPB 1 grams IVPB once over 1 hrs; (mix in NS 100 mL) Route: IVPB; br2 Infused Over: 1 hrs; Site: left antecubital; 01:10 Follow up: Response: No adverse reaction; IV Status: Completed infusion; IV Intake: br2 100ml 00:53 Drug: Rocephin IV 1 grams IV at 1 per protocol once; Given slow IV push per pharmacy br2 instructions Route: IV; Rate: 1 per protocol; Site: left antecubital; 01:10 Follow up: Response: No adverse reaction; IV Status: Completed infusion; IV Intake: [id number] Medication: 10/09 20:10 VIS not applicable for this client. br2 Intake: 10/10 01:10 IV: 100ml; Total: 100ml. br2 01:10 IV: 10ml; Total: 110ml. br2 Outcome: 00:57 Discharge ordered by MD. naty 01:10 Discharged to home ambulatory, br2 01:10 Condition: good 01:10 Discharge instructions given to patient, Instructed on discharge instructions, follow up and referral plans. Demonstrated understanding of instructions, follow-up care, medications, Prescriptions given X 2, 01:12 Patient left the ED. br2 Signatures: Dispatcher [employer] EDMS Cecil Dawkins PA PA cp Jeffries, Jennifer jj6 Chela Le RN RN br2 TAMMY FOSTER RN RN dd2 Dianna Garcia
--- NOTE | 2024-10-10 00:58 | EDPHYS ---
Physician Documentation [facility] Name: Kate Brice Age: 68 yrs Sex: Female : 1955 Arrival Date: 10/09/2024 Time: 19:19 Bed 15 Private MD: ED Physician Saeed Ball HPI: 10/09 20:00 This 68 yrs old Black Female presents to ER via Ambulatory with complaints of Neck cp Pain, >24Hrs Old, Pelvic Pain, Leg Pain, Arm Pain. 20:00 Patient is a 68-year-old female with past medical history significant for right breast cp cancer and hypertension who presents to the emergency department with multiple complaints. She complains of right arm pain and heaviness that radiates to the right side of her chest. She also complains of pain in her left leg. She is complaining of lower abdomen pain and chronic right-sided neck pain. She reports she has had an endoscopy in the past. Denies any difficulty swallowing. Patient denies any numbness, weakness and/or chest pain. Historical: - Allergies: 19:32 NKDA; dd2 - PMHx: 19:32 Arthritis; breast cancer; Hypertension; dd2 - PSHx: 19:32 breast- removed 19 lymphnodes; hip replacement; hysterectomy; knee replacement; dd2 - Immunization history:: Adult Immunizations up to date. - Infectious Disease History:: Denies. - Social history:: Smoking status: Patient denies any tobacco usage or history of. ROS: 20:05 Constitutional: Negative for body aches, chills, fever, poor PO intake, cp 20:05 Eyes: Negative for injury, pain, redness, and discharge, cp 20:05 ENT: Negative for drainage from ear(s), ear pain, sore throat, difficulty swallowing, difficulty handling secretions, 20:05 Neck: Positive for pain at rest, tenderness, of the anterior right side of neck, 20:05 Cardiovascular: Negative for chest pain, edema, palpitations, 20:05 Respiratory: Negative for cough, shortness of breath, wheezing, 20:05 Abdomen/GI: Positive for abdominal pain, Negative for vomiting, diarrhea, constipation, 20:05 : Negative for flank pain, 20:05 Neuro: Negative for altered mental status, numbness, weakness, 20:05 All other systems are negative, Exam: 20:10 Constitutional: The patient appears in no acute distress, alert, awake, cp non-diaphoretic, non-toxic, well developed, well nourished, overweight 20:10 Head/Face: Normocephalic, atraumatic. cp 20:10 Eyes: Periorbital structures: appear normal, Pupils: equal, round, and reactive to light and accomodation, Extraocular movements: intact throughout, Conjunctiva: normal, no exudate, no injection, Sclera: no appreciated abnormality, Lids and lashes: appear normal, bilaterally, 20:10 ENT: External ear(s): are unremarkable, Nose: is normal, Mouth: Lips: moist, Oral mucosa: moist, Posterior pharynx: Airway: no evidence of obstruction, patent, 20:10 Neck: C-spine: vertebral tenderness, is not appreciated, crepitus, is not appreciated, 20:10 Chest/axilla: Inspection: normal, 20:10 Cardiovascular: Rate: normal, Rhythm: regular, Edema: is not appreciated, JVD: is not appreciated, 20:10 Respiratory: the patient does not display signs of respiratory distress, Respirations: normal, no use of accessory muscles, no retractions, labored breathing, is not present, Breath sounds: are clear throughout, no decreased breath sounds, no stridor, no wheezing, 20:10 Abdomen/GI: Inspection: abdomen appears normal, Bowel sounds: active, all quadrants, Palpation: abdomen is soft and non-tender, in all quadrants, rebound tenderness, is not appreciated, involuntary guarding, is not appreciated, 20:10 Back: CVA tenderness, is absent, vertebral tenderness, is not appreciated, 20:10 Musculoskeletal/extremity: Extremities: noted in the right arm: pain, tenderness, There is no evidence of decreased ROM, 20:10 Skin: cellulitis, is not appreciated, no rash present. 20:10 Neuro: Orientation: to person, place \T\ time. Mentation: is normal, Cerebellar function: Romberg testing is negative, Motor: moves all fours, strength is normal, Sensation: is normal, 20:15 ECG was reviewed by the Attending Physician. cp Vital Signs: 19:29 BP 126 / 69; Pulse 73; Resp 16; Temp 98.4; Pulse Ox 98% on R/A; Weight 95.71 kg; Height dd2 5 ft. 7 in. ; Pain 8/10; 21:36 BP 134 / 81; Pulse 55; Resp 18 S; Pulse Ox 100% on R/A; Pain 7/10; br2 22:29 BP 128 / 80; Pulse 50; Resp 18 S; Pulse Ox 99% on R/A; br2 23:26 BP 141 / 82; Pulse 63; Resp 18; Pulse Ox 98% ; Pain 0/10; br2 10/10 00:51 BP 135 / 64; Pulse 53; Resp 18 S; Pulse Ox 98% on R/A; Pain 0/10; br2 01:11 BP 126 / 76; Pulse 51; Resp 22 S; Pulse Ox 100% on R/A; br2 10/09 19:29 Body Mass Index 33.05 (95.71 kg, 170.18 cm) dd2 10/09 19:29 Pain Scale: Adult dd2 21:36 Pain Scale: Adult br2 23:26 Pain Scale: Adult br2 10/10 00:51 Pain Scale: Adult br2 MDM: 10/09 19:47 Medical Screening Exam initiated cp 10/10 00:56 Data reviewed: vital signs, nurses notes, lab test result(s), EKG, radiologic studies, cp plain films, ultrasound, and as a result, I will discharge patient. 00:56 Differential diagnosis: C-Spine Fracture Cervical Disc Herniation Cervical Raiculopathy cp Cervical Spondylosis Spondylolisthesis Spondylosis DVT, cellulitis. I considered the following discharge prescriptions or medication management in the emergency department Medications were administered in the Emergency Department. See MAR. Independent interpretation of the following test(s) in the Emergency Department EKG: See my EKG interpretation above. Care significantly affected by the following chronic conditions: Hypertension, Cancer. Counseling: I had a detailed discussion with the patient and/or guardian regarding the historical points, exam findings, and any diagnostic results supporting the discharge/admit diagnosis, lab results, radiology results, the need for outpatient follow up, a family practitioner, to return to the emergency department if symptoms worsen or persist or if there are any questions or concerns that arise at home. Response to treatment: the patient's symptoms have mildly improved after treatment, and as a result, I will discharge patient. 10/09 19:59 Order name: Basic Metabolic Panel; Complete Time: 22:05 cp 04/18 22:05 Interpretation: Normal except: K 3.2; CRE 1.47; GFR 39. cp /18 19:59 Order name: CBC with Diff; Complete Time: 22:05 cp 04/18 22:06 Interpretation: Normal except: RBC 3.54; MCV 103.5; MCH 36.4; MPV 6.4. cp 04/18 19:59 Order name: LFT's; Complete Time: 22:05 cp 04/18 22:07 Interpretation: Normal except: IBILI, CALC 0.1; GLOB 4.3; A/G 0.8. cp 04/18 19:59 Order name: Magnesium; Complete Time: 22:05 cp /18 19:59 Order name: NT PRO-BNP; Complete Time: 22:05 cp 04/18 19:59 Order name: PT-INR; Complete Time: 22:05 cp /18 19:59 Order name: Troponin HS; Complete Time: 22:05 cp 18 19:59 Order name: Urinalysis W/Microscopic; Complete Time: 22:05 cp 0418 22:06 Interpretation: Normal except: UCLA Turbid; UESTR 500; UWBC 20-50. cp /18 19:59 Order name: XRAY Chest (1 view); Complete Time: 21:48 cp /18 20:01 Order name: US Extremity Venous W Compression Ramesh: also US right arm to r/o DVT; cp Complete Time: 21:48 18 20:01 Order name: Lower Extremity Arterial Bilat US; Complete Time: 21:48 cp 18 22:11 Order name: UPPER EXTREMITY VENOUS UNILATE EDMS 18 22:12 Order name: CT Head C Spine cp 18 19:59 Order name: EKG; Complete Time: 20:00 cp /18 19:59 Order name: Cardiac monitoring; Complete Time: 20:14 cp /18 19:59 Order name: EKG - Nurse/Tech; Complete Time: 20:14 cp /18 19:59 Order name: IV Saline Lock; Complete Time: 21:35 cp /18 19:59 Order name: Labs collected and sent; Complete Time: 21:35 cp 04/18 19:59 Order name: O2 Per Protocol; Complete Time: 21:35 cp 04/18 19:59 Order name: O2 Sat Monitoring; Complete Time: 21:35 cp EC/18 20:15 Rate is 53 beats/min. Rhythm is regular. WV interval is normal. QRS interval is normal. cp QT interval is normal. T waves are Inverted in lead aVR. Interpreted by me. Reviewed by me. Administered Medications: 21:35 Drug: Ketorolac IVP 15 mg IVP once Route: IVP; Site: left antecubital; br2 10/10 00:51 Follow up: Response: No adverse reaction; Pain is decreased br2 10/09 22:12 Drug: Potassium PO Effervescent Tablet 50 mEq PO once; dissolve in 4 ounces of water or br2 juice Route: PO; 10/10 00:51 Follow up: Response: No adverse reaction br2 00:27 Drug: Methocarbamol IVPB 1 grams IVPB once over 1 hrs; (mix in NS 100 mL) Route: IVPB; br2 Infused Over: 1 hrs; Site: left antecubital; 01:10 Follow up: Response: No adverse reaction; IV Status: Completed infusion; IV Intake: br2 100ml 00:53 Drug: Rocephin IV 1 grams IV at 1 per protocol once; Given slow IV push per pharmacy br2 instructions Route: IV; Rate: 1 per protocol; Site: left antecubital; 01:10 Follow up: Response: No adverse reaction; IV Status: Completed infusion; IV Intake: [id number] Disposition: 04:14 Co-signature as Attending Physician, Saeed Ball MD I agree with the assessment sp4 and plan of care. I reviewed the patient's care provided by the Advanced Practice Provider and agree with the diagnosis and treatment plan. Disposition Summary: 10/10/24 00:57 Discharge Ordered Notes: Location: Home cp Problem: an ongoing problem cp Symptoms: have improved cp Condition: Stable cp Diagnosis - Pain in right arm cp - UTI/ Urinary tract infection, site not specified cp - Pain in left leg cp Followup: cp - With: Private Physician - When: 5 - 6 days - Reason: Recheck today's complaints Discharge Instructions: - Discharge Summary Sheet cp - Musculoskeletal Pain cp - Urinary Tract Infection, Adult cp - How to Use Cold Therapy cp - Heat Therapy cp Forms: - Medication Reconciliation Form cp - Antibiotic Education cp - Prescription Opioid Use cp - Patient Portal Instructions cp - Leadership Thank You Letter cp Prescriptions: - Macrobid 100 mg Oral Capsule - take 1 capsule ORAL route every 12 hours for 7 days; 14 capsule; Refills: 0, cp Product Selection Permitted - methocarbamol 750 mg Oral tablet - take 1 tablet ORAL route 3 times per day; 30 tablet; Refills: 0, Product cp Selection Permitted Signatures: Dispatcher [employer] EDMS Cecil Dawkins PA PA cp Potepalov, Sergey, MD MD sp4 Chela Le RN RN br2 TAMMY FOSTER RN RN dd2 Corrections: (The following items were deleted from the chart) 10/09 22:09 22:07 Extremity Venous Uni [email or web address] ordered. EDND EDMS
[2024-10-10 01:17] VITALS: TEMP 98.4
[2024-10-10 01:25] VITALS: BP 126/76; O2SAT 100
== END 2024-10-10 01:12 | disposition home or self-care (01) ==
LOC: ER 19:19
DX: M79.601 Pain in right arm (principal); N39.0 Urinary tract infection, site not specified; M79.605 Pain in left leg; M54.2 Cervicalgia; Z85.3 Personal history of malignant neoplasm of breast
CPT/HCPCS: 85025; 81001; 80048; 36415; 83735; 85610; 80076; 84484; 83880; 70450; 72125; 71045; 93971; 93925; 93970; J2800; J0696; 93005; 96365; 96375; 99284

== ENCOUNTER 2025-04-21 15:55 | Emergency (ER) | payer OTHER ==
[2025-04-21] MEDS ORDERED: METHOCARBAMOL 1,000 MG/10 ML VIAL ONE (16:59)
[2025-04-21] MEDS ORDERED: NA CHLORIDE 0.9% 100 ML ONE (16:59)
[2025-04-21] MEDS ORDERED: KETOROLAC 30 MG/ML INJ ONE (16:59)
[2025-04-21] MEDS ORDERED: NA CHLORIDE 0.9% 500 ML ONE (17:12)
[2025-04-21 17:13] LABS: Absolute Lymphocytes (CBC) 1.2 K/uL (0.7-4.9); Hematocrit 41.6 % (36.0-45.0); Hemoglobin 14.0 g/dL (12.0-15.0); MCH 33.0 pg (27.0-35.0); MCHC 33.6 g/dL (32.0-36.0); MCV 98.2 fL (80-100); MPV 7.3 fL (7.6-11.3); Nucleated RBC Absolute Count 0.0 (0-0); Nucleated Red Blood Cells % 0.0 % (0-0); RBC Red Blood Cell Count 4.23 M/uL (3.86-4.86); White Blood Count 6.70 thou/uL (4.3-10.9)
[2025-04-21 17:20] LABS: Sqamous Epithelial <5 /HPF (None Seen); Urine Culture Reflex Order NOT NEEDED; Urine Microscopic Reflex YN ORDER UMIC
[2025-04-21 17:22] LABS: PT Prothrombin Time 12.3 SECONDS (10-13.0); Protime INR 1.09
[2025-04-21 17:41] LABS: ALT/SGPT 23 U/L (13-56); AST/SGOT 15 U/L (15-37); Albumin 3.4 g/dL (3.4-5.0); Albumin/Globulin Ratio 0.7 (1.1-1.8); Alkaline Phosphatase 76 U/L (45-117); Anion Gap 7.5 mEq/L (5.0-15.0); BUN Blood Urea Nitrogen 21 mg/dL (7-18); Globulin 4.8 g/dL (2.3-3.5); Glucose Level 88 mg/dL (74-106); Magnesium 2.0 mg/dL (1.6-2.4); Potassium 3.5 mEq/L (3.5-5.1); Troponin High Sensitivity 11.4 pg/mL (<58.9)
--- NOTE | 2025-04-21 17:50 | RAD REPORT ---
EXAMINATION: Head Brain Wo Cont CLINICAL INDICATION: Female, 69 years old.HEADACHE TECHNIQUE: Axial CT images from the skull base to the vertex without intravenous contrast. Coronal an d sagittal reformatted images were created from the data set. One or more of the following dose reduction techniques were used: Automated exposure control, adjustment of the mA and/or kV according to patient size, and/or iterative reconstruction. Unless otherwise specified, incidental findings do not require dedicated imaging follow-up. [id number]. COMPARISON: No prior exams FINDINGS: INTRACRANIAL: No acute intracranial hemorrhage. No acute large vascular territory infarct. No hydro cephalus. No mass effect or midline shift. No significant white matter disease. VASCULATURE: No visualized abnormalities in the arteries or dural venous sinuses. SCALP/SKULL: No calvarial fracture identified. No acute soft tissue abnormality. SINUSES: Small mucous retention cyst in left maxillary sinus. No significant mastoid fluid. IMPRESSION: No acute intracranial abnormality.
[2025-04-21 17:53] LABS: Bilirubin Indirect, Calculated 0.1 mg/dL (0.2-0.8)
--- NOTE | 2025-04-21 18:24 | ER ---
Nurse's Notes [facility] Name: Kate Brice Age: 69 yrs Sex: Female : 1955 Arrival Date: 04/21/2025 Time: 15:55 Bed 15 Private MD: Diagnosis: Headache Presentation: 04/21 16:12 Chief complaint: Patient states: OCCIPITAL LAGUERRE x1 WK. Coronavirus screen: At this time, bp the client does not indicate any symptoms associated with coronavirus-19. Ebola Screen: No symptoms or risks identified at this time. Initial Sepsis Screen: Does the patient meet any 2 criteria? No. Patient's initial sepsis screen is negative. Does the patient have a suspected source of infection? No. Patient's initial sepsis screen is negative. Risk Assessment: Do you want to hurt yourself or someone else? Patient reports no desire to harm self or others. Onset of symptoms is unknown. 16:12 Method Of Arrival: Ambulatory bp 16:12 Acuity: RACQUEL 4 bp Historical: - Allergies: 16:12 NKDA; bp - PMHx: 16:12 Arthritis; breast cancer; Hypertension; bp - Immunization history:: Adult Immunizations up to date. - Infectious Disease History:: Denies. - Social history:: Smoking status: Patient denies any tobacco usage or history of. Screenin:[address] [facility] ED Fall Risk Assessment (Adult) History of falling in the last 3 months, jb4 including since admission No falls in past 3 months (0 pts) Confusion or Disorientation No (0 pts) Intoxicated or Sedated No (0 pts) Impaired Gait No (0 pts) Mobility Assist Device Used No (0 pt) Altered Elimination No (0 pt) Score/Fall Risk Level 0 - 2 = Low Risk Oriented to surroundings, Maintained a safe environment. Abuse screen: Denies threats or abuse. Nutritional screening: No deficits noted. Tuberculosis screening: No symptoms or risk factors identified. Assessment: 16:45 General: Appears in no apparent distress. uncomfortable, Behavior is calm, cooperative, jb4 appropriate for age. Pain: Complains of pain in occipital area Pain does not radiate. Pain currently is 8 out of 10 on a pain scale. Neuro: Level of Consciousness is awake, alert, obeys commands, Oriented to person, place, time, situation. Cardiovascular: Patient's skin is warm and dry. Respiratory: Airway is patent Respiratory effort is even, unlabored, Respiratory pattern is regular, symmetrical. Derm: Skin is intact, Skin is pink, warm \T\ dry. Musculoskeletal: Circulation, motion, and sensation intact. Range of motion: intact in all extremities. 18:04 Reassessment: Patient appears in no apparent distress at this time. Patient and/or jb4 family updated on plan of care and expected duration. Pain level reassessed. Patient is alert, oriented x 3, equal unlabored respirations, skin warm/dry/pink. 18:52 Reassessment: Patient appears in no apparent distress at this time. Patient and/or jb4 family updated on plan of care and expected duration. Pain level reassessed. Patient is alert, oriented x 3, equal unlabored respirations, skin warm/dry/pink. Vital Signs: 16:12 BP 133 / 77; Pulse 56; Resp 16; Temp 98; Pulse Ox 98% ; bp 18:04 BP 141 / 74; Pulse 72; Resp 16; Pulse Ox 97% on R/A; jb4 ED Course: 16:01 Patient arrived in ED. im 16:02 Cecil Dawkins PA-C is PHCP. cp 16:02 Artemio Parra DO is Attending Physician. cp 16:12 Arm band placed on. bp 16:13 Triage completed. bp 17:07 Initial lab(s) drawn, by ED staff, sent to lab. Inserted saline lock: 20 gauge in left ts3 antecubital area, using aseptic technique. Blood collected. Flushed with 10 mL NS. 17:07 Urine collected: clean catch specimen, sent to lab. ts3 17:07 EKG done, by service technician copier. reviewed by Cecil Dawkins PA-C. ts3 17:41 CT Head Brain wo Cont In Process Unspecified. EDMS 17:48 Roberto Garcia, RN is Primary Nurse. jb4 18:07 Patient has correct armband on for positive identification. Bed in low position. Call jb4 light in reach. Side rails up X 1. Provided Education on: plan of care. 18:07 No provider procedures requiring assistance completed. jb4 18:52 IV discontinued, intact, bleeding controlled, No redness/swelling at site. Pressure jb4 dressing applied. Administered Medications: 17:14 Drug: Methocarbamol IVPB 1 grams IVPB once over 1 hrs; (mix in NS 100 mL) Route: IVPB; jb4 Infused Over: 1 hrs; Site: left forearm; 18:14 Follow up: Response: No adverse reaction; Marked relief of symptoms; IV Status: jb4 Completed infusion; IV Intake: 100ml 17:14 Drug: Ketorolac IVP 15 mg IVP once Route: IVP; Site: left forearm; jb4 17:45 Follow up: Response: No adverse reaction; Marked relief of symptoms jb4 17:17 Drug: NS 0.9% IV 500 ml 500 ml IV at 1 bolus once; to be given as a bolus over 60 jb4 minutes Volume: 500 ml; Route: IV; Rate: 1 bolus; Site: left forearm; 18:40 Follow up: Response: No adverse reaction; IV Status: Completed infusion; IV Intake: jb4 500ml Medication: 18:52 VIS not applicable for this client. jb4 Intake: 18:14 IV: 100ml; Total: 100ml. jb4 18:40 IV: 500ml; Total: 600ml. jb4 Outcome: 18:24 Discharge ordered by MD. naty 18:52 Discharged to home ambulatory, jb4 18:52 Condition: stable 18:52 Discharge instructions given to patient, Instructed on discharge instructions, follow up and referral plans. no drinking with medication, no driving heavy equipment, medication usage, Demonstrated understanding of instructions, follow-up care, medications, Prescriptions given X 2, 18:54 Patient left the ED. jb4 Signatures: Dispatcher [employer] EDMS Cecil Dawkins PA-C PA-C cp Bryson, James, RN RN jb4 Kiko Marr RN RN Ayanna Rolle Taisha ts3 Corrections: (The following items were deleted from the chart) 18:56 18:55 Response: No adverse reaction; IV Status: Completed infusion; IV Intake: 500ml [id number]
--- NOTE | 2025-04-21 18:24 | EDPHYS ---
Physician Documentation [facility] Name: Kate Brice Age: 69 yrs Sex: Female : 1955 Arrival Date: 04/21/2025 Time: 15:55 Bed 15 Private MD: ED Physician Artemio Parra HPI: 04/21 16:25 This 69 yrs old Black Female presents to ER via Ambulatory with complaints of Headache. cp 16:25 The patient complains of pain to the occipital area of scalp. The patient describes the cp headache as aching. Onset: The symptoms/episode began/occurred 1 week(s) ago. Associated signs and symptoms: Pertinent positives: off balance. Severity of symptoms: in the emergency department the pain a " 7" out of "10". 16:25 Headache History: Other patient reports HX of similar LAGUERRE pain in the past but this LAGUERRE cp lasting longer. Historical: - Allergies: 16:12 NKDA; bp - PMHx: 16:12 Arthritis; breast cancer; Hypertension; bp - Immunization history:: Adult Immunizations up to date. - Infectious Disease History:: Denies. - Social history:: Smoking status: Patient denies any tobacco usage or history of. ROS: 16:30 Constitutional: Negative for body aches, chills, fever, poor PO intake, cp 16:30 Cardiovascular: Negative for chest pain, palpitations, cp 16:30 Respiratory: Negative for cough, shortness of breath, wheezing, 16:30 Abdomen/GI: Negative for abdominal pain, vomiting, diarrhea, constipation, 16:30 Neuro: Positive for headache, feeling off balance, Negative for altered mental status, weakness, 16:30 Eyes: Negative for injury, pain, redness, and discharge, cp 16:30 ENT: Negative for drainage from ear(s), ear pain, sore throat, difficulty swallowing, cp difficulty handling secretions, 16:30 Neck: Negative for stiffness, tenderness, bony tenderness, 16:30 Back: Negative for pain at rest, pain with movement, 16:30 All other systems are negative, Exam: 16:35 Constitutional: The patient appears in no acute distress, alert, awake, cp non-diaphoretic, non-toxic, well developed, well nourished, 16:35 Head/Face: Normocephalic, atraumatic. cp 16:35 Eyes: Periorbital structures: appear normal, Pupils: equal, round, and reactive to light and accomodation, Extraocular movements: intact throughout, Conjunctiva: normal, no exudate, no injection, Sclera: no appreciated abnormality, Lids and lashes: appear normal, bilaterally, 16:35 ENT: External ear(s): are unremarkable, Nose: is normal, Mouth: Lips: moist, Oral mucosa: moist, Posterior pharynx: Airway: no evidence of obstruction, patent, 16:35 Neck: ROM/movement: pain, is not appreciated, limited range of motion, is not appreciated, Meningeal signs: are not present, 16:35 Chest/axilla: Inspection: normal, 16:35 Cardiovascular: Rate: bradycardic, Rhythm: regular, Edema: is not appreciated, JVD: is not appreciated, 16:35 Respiratory: the patient does not display signs of respiratory distress, Respirations: normal, no use of accessory muscles, no retractions, labored breathing, is not present, Breath sounds: are clear throughout, no decreased breath sounds, no stridor, no wheezing, 16:35 Abdomen/GI: Exam negative for discomfort, distension, guarding, Inspection: abdomen appears normal, 16:35 Back: pain, is absent, ROM is normal, 16:35 Skin: no rash present. 16:35 Neuro: Orientation: to person, place \\T\\ time. Mentation: is normal, Cerebellar function: Romberg testing is negative, Motor: moves all fours, strength is normal, Sensation: is normal, 16:53 ECG was reviewed by the Attending Physician. Vital Signs: 16:12 BP 133 / 77; Pulse 56; Resp 16; Temp 98; Pulse Ox 98% ; bp 18:04 BP 141 / 74; Pulse 72; Resp 16; Pulse Ox 97% on R/A; jb4 MDM: 16:10 Medical Screening Exam initiated cp 18:24 Data reviewed: vital signs, nurses notes, lab test result(s), EKG, radiologic studies, cp CT scan, and as a result, I will discharge patient. 18:24 Differential diagnosis: hypertensive headache, intracerebral hemorrhage, migraine, cp subdural hematoma, tension headache, traumatic injuries. I considered the following discharge prescriptions or medication management in the emergency department Medications were administered in the Emergency Department. See MAR. Independent interpretation of the following test(s) in the Emergency Department EKG: See my EKG interpretation above. Care significantly affected by the following chronic conditions: Hypertension, Cancer. Counseling: I had a detailed discussion with the patient and/or guardian regarding the historical points, exam findings, and any diagnostic results supporting the discharge/admit diagnosis, lab results, radiology results, to return to the emergency department if symptoms worsen or persist or if there are any questions or concerns that arise at home. Response to treatment: the patient's symptoms have mildly improved after treatment, and as a result, I will discharge patient. 04/21 Order name: Basic Metabolic Panel; Complete Time: 18:01 04/21 18:01 Interpretation: Normal except: NA 135; BUN 21; GFR 60. 04/21 Order name: CBC with Diff; Complete Time: 18:01 04/21 18:01 Interpretation: Normal except: MPV 7.3; GWYN% 74.4. 04/21 Order name: LFT's; Complete Time: 18: 04/21 18:02 Interpretation: Normal except: IBILI, CALC 0.1; GLOB 4.8; A/G 0.7. 04/21 16 Order name: Magnesium; Complete Time: 18: 04/21 Order name: PT-INR; Complete Time: 18: 04/21 Order name: Troponin HS; Complete Time: 18: 04/21 18:03 Interpretation: Reviewed. 04/21 Order name: UA Rfx Marcellus Cult if indicated; Complete Time: 18: 04/21 18:02 Interpretation: Normal except: UESTR 250. 04/21 Order name: CT Head Brain wo Cont; Complete Time: 18:01 04/21 18:02 Interpretation: Report reviewed. 04/21 Order name: Cardiac monitoring; Complete Time: 17:06 04/21 Order name: EKG - Nurse/Tech; Complete Time: 17:06 04/21 Order name: IV Saline Lock; Complete Time: 17:06 04/21 Order name: Labs collected and sent; Complete Time: 16:51 04/21 Order name: O2 Per Protocol; Complete Time: 16:51 04/21 16:26 Order name: O2 Sat Monitoring; Complete Time: 16:51 cp EC:53 Rate is 56 beats/min. Rhythm is regular. LA interval is normal. QRS interval is normal. cp QT interval is normal. T waves are Inverted in lead aVR. Interpreted by me. Reviewed by me. Administered Medications: 17:14 Drug: Methocarbamol IVPB 1 grams IVPB once over 1 hrs; (mix in NS 100 mL) Route: IVPB; jb4 Infused Over: 1 hrs; Site: left forearm; 18:14 Follow up: Response: No adverse reaction; Marked relief of symptoms; IV Status: jb4 Completed infusion; IV Intake: 100ml 17:14 Drug: Ketorolac IVP 15 mg IVP once Route: IVP; Site: left forearm; jb4 17:45 Follow up: Response: No adverse reaction; Marked relief of symptoms jb4 17:17 Drug: NS 0.9% IV 500 ml 500 ml IV at 1 bolus once; to be given as a bolus over 60 jb4 minutes Volume: 500 ml; Route: IV; Rate: 1 bolus; Site: left forearm; 18:40 Follow up: Response: No adverse reaction; IV Status: Completed infusion; IV Intake: jb4 500ml Disposition: 17:09 I was immediately available on-site in the Emergency Department for consultation in the al3 care of the patient. Disposition Summary: 04/21/25 18:24 Discharge Ordered Notes: Location: Home cp Problem: new cp Symptoms: have improved cp Condition: Stable cp Diagnosis - Headache cp Followup: cp - With: Private Physician - When: 2 - 3 days - Reason: Recheck today's complaints Discharge Instructions: - Discharge Summary Sheet cp - General Headache Without Cause cp Forms: - Medication Reconciliation Form cp - Antibiotic Education cp - Prescription Opioid Use cp - Patient Portal Instructions cp - Leadership Thank You Letter cp Prescriptions: - Fioricet 50-300-40 mg Oral capsule - take 1 capsule ORAL route every 6 hours as needed for pain; 20 capsule; cp Refills: 0, Product Selection Permitted - Zofran 4 mg Oral Tablet - take 1 tablet ORAL route every 12 hours As needed; 20 tablet; Refills: 0, cp Product Selection Permitted Signatures: Dispatcher [employer] EDVA Cecil Dawkins PA-C PA-C cp Bryson, James RN RN jb4 Kiko Marr, RN RN bp Artemio Parra, DO ms3 Corrections: (The following items were deleted from the chart) 16: 16:26 BASIC METABOLIC PANEL+C.LAB.BRZ ordered. EDMS EDMS 16: 16:26 CBC+H.LAB.BRZ ordered. EDMS EDMS 16: 16:26 HEPATIC FUNCTION+C.LAB.BRZ ordered. EDMS EDMS 16: 16:26 MAGNESIUM+C.LAB.BRZ ordered. EDMS EDMS 16: 16:26 PROTIME (+INR)+COAG.LAB.BRZ ordered. EDMS EDMS 16: 16:26 Troponin High Sensitivity+C.LAB.BRZ ordered. EDMS EDMS 16: 16:26 UA Rfx Marcellus Cult if indicated+U.LAB.BRZ ordered. EDMS EDMS
[2025-04-21 18:58] VITALS: TEMP 98
[2025-04-21 18:59] VITALS: BP 141/74; O2SAT 97
== END 2025-04-21 18:54 | disposition home or self-care (01) ==
LOC: ER 15:55
DX: R51.9 Headache, unspecified (principal); I10 Essential (primary) hypertension
CPT/HCPCS: 96365; 93005; 85025; 81001; 80048; 36415; 83735; 85610; 80076; 84484; 70450; 96375; 99284; J1885; J2800; J7040